=== PATIENT | male | born 1950 | race Caucasian/White ===

== ENCOUNTER → 2018-05-01 07:45 | Outpatient (CLI) | payer OTHER, MEDICARE, SELFPAY ==
--- NOTE | 2018-05-01 07:50 | AAAS_ITS ---
Reason For Study: AAA Aorta Measurements Aorta Doppler Measurements Proximal aorta measures2.1 x 2.1cm. in cross- Peak systolic flow velocities within the proximal sectional axis. aorta measure 83.0 cm/sec. Proximal aorta measures2.1cm. in longitudinal Peak systolic flow velocities within the mid axis. aorta measure 70.2 cm/sec. Mid aorta measures2.7 x 2.8cm. in cross-sectionalPeak systolic flow velocities within the distal axis. aorta measure 39.6 cm/sec. Mid aorta measures2.7cm. in longitudinal axis. Distal aorta measures2.0/2.1cm. in cross- sectional axis. Distal aorta measures2.1cm. in longitudinal axis. Procedure Aorta IVC Iliac vasculature or bypass grafts 17958. Technically limited due to bowel gas. Portion of prox/mid aorta and tracy iliacs not visualized. Exam performed in department. Interpretation Summary Limited exam by bowel gas Maximal aortic dimensions mid aorta 2.7 x 2.8cm Normal aortic flow velocity Ordering Physician: Ochoa Hernandez Referring Physician: Ochoa Hernandez Performed By: Jud Rosales RVT
--- NOTE | 2018-05-01 11:05 | LEAS ---
Arterial Study - Arterial Study Arterial Study: Bilateral lower extremity noninvasive arterial exam at rest Right lower extremity The right PT and DP ankle-brachial indices at rest are 1.08 and 1.04 respectively. The Doppler waveforms are triphasic at the right posterior tibial and dorsalis pedis. Volume pulse recordings demonstrate reasonably maintained waveforms at the low thigh and there is nice amplification at the calf. The ankle waveforms are well maintained on the digital waveforms are moderately depressed. Left lower extremity The left high thigh index is 1.05. The left calf index is abnormal at 0.62. The left PT and DP ankle-brachial indices are 0.63 and 0.64 respectively. The left posterior tibial and dorsalis pedis waveforms are biphasic. The volume pulse recordings demonstrate reasonably maintained waveforms at the low thigh. Calf and ankle waveforms are significantly depressed and the digital waveforms essentially flattened. Impression Normal right lower extremity PT and DP ankle-brachial indices and waveforms. Moderate digital depression consistent with distal small vessel disease Left lower extremity demonstrates a normal index and waveform at the thigh but findings are consistent with occlusion or critical stenosis of the left distal superficial femoral artery/popliteal. Findings are within the range of vascular claudication. Digital waveforms are significantly depressed consistent with severe distal small vessel disease. Ochoa Hernandez M.D., F.A.C.S.
== END ==
PROVIDERS: Family Provider Internal Medicine; PCP Internal Medicine; Visit Provider Surgery
DX: I71.4 Abdominal aortic aneurysm, without rupture (principal); I73.9 Peripheral vascular disease, unspecified
CPT/HCPCS: 76706; 93923

== ENCOUNTER → 2019-05-01 | Outpatient (CLI) | payer MEDICARE, SELFPAY ==
[2017-07-04 06:55] VITALS: BMI 21.6
--- NOTE | 2019-05-01 09:40 | ART_ITS ---
Reason For Study: CLAUDICATION Procedure A bilateral lower extremity continuous wave Doppler with analog waveform analysis,segmental pressures,and ankle brachial indexes without exercise. Left Segmental Pressures Left brachial= 153mmHg. Left thigh = 72mmHg. Left calf = 71mmHg. Left posterior tibial artery = 68mmHg. Left dorsalis pedis artery = 61mmHg. The left dorsalis pedis waveforms are monophasic. The left posterior tibial artery waveforms are monophasic. Left digit = 0 mmHg. Right Segmental Pressures Right brachial= 160mmHg. Right thigh = 127mmHg. Right calf = 102mmHg. Right posterior tibial artery = 108mmHg. Right dorsalis pedis artery = 82mmHg. Right digit = 41 mmHg. The right dorsalis pedis waveforms are monophasic. The right posterior tibial artery waveforms are biphasic. Indices The right resting ankle brachial index is 0.68. The right ankle brachial index by the dorsalis pedis is 0.51. The right ankle brachial index by the posterior tibial artery is 0.68. The left resting ankle brachial index is 0.43. The left ankle brachial index by the dorsalis pedis is 0.38. The left ankle brachial index by the posterior tibial artery is 0.43. Interpretation Summary Abnormal right low thigh index suggesting ileofemoral occlusive disease. Right ABIs well within range of vascular claudication Abnormal left low thigh index consistent with severe left ileofemoral occlusive disease--likely occlusion Left BLAIR's within range of rest pain Ordering Physician: Ochoa Hernandez MD Referring Physician: Ochoa Hernandez Performed By: Barbara Rivas RVT, [facility]
== END | disposition home or self-care (01) ==
PROVIDERS: Family Provider Internal Medicine; PCP Internal Medicine; Referring Provider Surgery; Visit Provider Surgery
DX: I73.9 Peripheral vascular disease, unspecified (principal)
CPT/HCPCS: 93923

== ENCOUNTER → 2019-05-10 | Outpatient (CLI) | payer MEDICARE, SELFPAY ==
[2019-05-06 13:11] VITALS: BMI 21.6
--- NOTE | 2019-05-10 08:03 | CT_ITS ---
STUDY: CTA OF THE ABDOMINAL AORTA AND BILATERAL LOWER EXTREMITIES REASON FOR EXAM: Male, 69 years old. Abdominal aortic aneurysm. Peripheral vascular disease. History of colon, bladder and prostate cancer. History of appendectomy and colon resection. History of prostatectomy and bladder resection. RADIATION DOSAGE (If Supplied By Facility): CTDIvol = ( 7.79 ) mGy, DLP = ( 1001.39 ) mGycm TECHNIQUE: Axial CT angiography multi-detector data acquisition was obtained from the diaphragm to the feet following intravenous administration of 100 IV Isovue 370. Axial images and MIP images were reconstructed from the axial data set. Post-processing of the angiographic images was performed, with multiplanar reformation and 3D reconstruction. Individualized dose optimization techniques were used for this CT. TECHNICAL QUALITY: Good COMPARISON: Aortic ultrasound, May 01, 2018. Descriptors of Narrowing: None (0%) Mild (< 50%) Moderate (50-70%) Severe (70-90%) Subtotal/Total Occlusion (90-100%) Non-Evaluable (technically non-diagnostic FINDINGS: Abdominal aorta: There is marked atherosclerotic changes of the abdominal aorta there is mild pleural thickening. Narrowing of the aorta enlarges to 3.1 x 3.2 cm tapering to the bifurcation. Narrowing of the infrarenal aortic lumen by internal noncalcified plaque Celiac and superior mesenteric arteries: There is atherosclerotic plaque at the origin of the celiac artery with mild stenosis. Inferior mesenteric artery: The origin of the inferior mesenteric artery is occluded. Right renal artery(arteries): There is severe narrowing at the origin of the right renal artery. Left renal artery(arteries): There is severe narrowing at the origin of the left renal artery with early bifurcation. Right common iliac artery: There is a patent stent in the proximal right common iliac artery with mild stenosis. Right external iliac artery: No demonstrated narrowing. Right internal iliac artery: There is a 0.7 cm fusiform aneurysm at the origin of the internal iliac artery. There is moderate narrowings secondary to atherosclerotic plaque. Left common iliac artery: Is patent stent in the proximal left common iliac artery with mild noncalcified plaque. Left external iliac artery: There is occlusion of the external iliac artery just beyond its origin. Left internal iliac artery: Atherosclerotic plaque with mild narrowing. RIGHT LOWER EXTREMITY Right common femoral artery: Minimal atherosclerotic plaque without significant stenosis. Right profundus femoris: No demonstrated narrowing. Right superficial femoral: Occlusion at its origin. Right popliteal artery: There is reconstitution of the popliteal artery below Kamaljit's canal via collaterals from the profunda. Right tibioperoneal trunk: No demonstrated narrowing. Right anterior tibial artery: No demonstrated narrowing. Artery is poorly visualized beyond the ankle. Right posterior tibial artery: No demonstrated narrowing. Right peroneal artery: No demonstrated narrowing. LEFT LOWER EXTREMITY Left common femoral artery: The femoral artery is opacified with minimal atherosclerotic plaque. Left profundus femoris: No demonstrated narrowing. Left superficial femoral: There is minimal hemodynamically narrowing of the lumen proximally. The remainder of the artery appears normal to the lower thigh were there is moderate narrowing due to atherosclerotic plaque. Left popliteal artery: There is mild fusiform dilatation of the proximal popliteal artery just before it occludes posterior to the distal femoral diametaphysis. This reconstitutes via collateral posterior to the femoral condyles normal diameter into the calf. Left tibioperoneal trunk: No demonstrated narrowing. Left anterior tibial artery: No demonstrated narrowing. Left posterior tibial artery: No demonstrated narrowing. Left peroneal artery: No demonstrated narrowing. The lung bases bases are clear. The heart is normal in size. Normal liver. Normal gallbladder and biliary ductal system. Normal spleen. Normal pancreas. Normal adrenal glands. The right kidney is small in size with decreased cortical enhancement. There is mild dilatation of the right renal collecting system and ureter to the ileal conduit seen in the mid abdomen. kidney is of normal size and enhancement. There are multiple small cortical cysts without enhancing mass or renal calculi. Normal left ureter. Normal IVC and retroperitoneum. Normal stomach. Normal small bowel. There are scattered diverticuli throughout the colon is evidence of an anastomosis in the rectosigmoid region. There is evidence of prior appendectomy. The urinary bladder is absent. As stated above there is an ileal conduit in the right mid abdomen. Nonvisualization of the prostate. There is no pelvic lymphadenopathy or mass. No free air or free fluid is seen within the peritoneal cavity. There is an umbilical hernia of omental fat. The ostomy for the ileal conduit placed just to the right of the umbilicus. The abdominal wall appears otherwise unremarkable. There are degenerative changes of the lumbar spine without lytic or blastic lesions. No other osseous abnormality is noted. CT/CTA Abd w/Runoff W/WO Contrast IMPRESSION: 1. Atherosclerotic aorta with mild infrarenal abdominal aortic aneurysm with maximum diameter 3.2 cm. 2. Bilateral common iliac stents. 3. Occlusion of the left external iliac artery. 4. Occlusion of the right superficial femoral artery. 5. Moderate atherosclerotic changes of the distal left SFA. 6. Marked narrowing of the origin of the right renal artery with small kidney. 7. Evidence of bladder resection and prostatectomy. 8. Right mid abdominal ileal conduit. There is mild dilatation of right renal collecting system. 9. Status post left partial colectomy and appendectomy. Electronically Signed: Hang Hernandez DO at 17:19 EDT Tel [phone], Service support ,
[2019-05-10 08:25] LABS: CREATININE FINGERSTICK 1.1 mg/dL (0.70-1.30); EGFR FINGERSTICK > 60.0000 mL/min (>60)
== END | disposition home or self-care (01) ==
LOC: CT 08:03
PROVIDERS: Family Provider Internal Medicine; PCP Internal Medicine; Referring Provider Surgery; Visit Provider Surgery
DX: I71.4 Abdominal aortic aneurysm, without rupture (principal); I77.9 Disorder of arteries and arterioles, unspecified; M79.604 Pain in right leg; M79.605 Pain in left leg
CPT/HCPCS: 75635; Q9967

== ENCOUNTER 2019-07-03 09:53 | Day surgery (SDC) | payer MEDICARE, SELFPAY ==
[2019-05-16 06:32] VITALS: BMI 21.6
--- NOTE | 2019-06-04 05:47 | HP_ITS ---
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 Is patient in pain?: No Allergies sulfamethoxazole [From Bactrim] Adverse Reaction (Verified 05/06/19 13:10) Other trimethoprim [From Bactrim] Adverse Reaction (Verified 05/06/19 13:10) Other Medications Acetaminophen with Codeine [Tylenol with Codeine #4 Tablet] 1 ea PO Q4H PRN PRN 07/22/13 [History Confirmed 05/06/19] Amlodipine [Norvasc] 10 mg PO QHS 07/22/13 [History Confirmed 05/06/19] Folic Acid 1 mg PO DAILY PRN PRN 07/22/13 [History Confirmed 05/06/19] Ibuprofen [Motrin] 800 mg PO TID PRN PRN 07/22/13 [History Confirmed 05/06/19] Ranitidine [Zantac] 150 mg PO BID PRN PRN 07/22/13 [History Confirmed 05/06/19] Omeprazole [Prilosec] 20 mg PO BID PRN PRN 04/11/14 [History Confirmed 05/06/19] Gabapentin [Neurontin] 300 mg PO 5X/DAY 03/07/16 [History Confirmed 05/06/19] Tamsulosin HCl [Flomax] 0.4 mg PO DAILY 03/07/16 [History Confirmed 05/06/19] PFS Medical History (Updated 05/06/19 @ 17:44 by Ochoa Hernandez MD) Carotid artery disease (Acute) PAD (peripheral artery disease) (Acute) BPH (benign prostatic hyperplasia) (Acute) HTN (hypertension) (Chronic) Personal history of colon cancer (Acute) GERD (gastroesophageal reflux disease) (Acute) AAA (abdominal aortic aneurysm) (Acute) PAD (peripheral artery disease) (Acute) Surgical History (Updated 05/06/19 @ 13:10 by Saba Dumont) S/P peripheral artery angioplasty (Acute) S/P colonoscopy (Acute) S/P colectomy (Acute) Social History (Updated 05/06/19 @ 17:47 by Ochoa Hernandez MD) Smoking Status: Current every day smoker HPI HPI HPI: LELA PHAM, is a 69 M who presents to the office today for HPI HPI Surgical H&P: Yes HPI: LELA PHAM, is a 69 M who presents to the office today for surgical consultation regarding progressive bilateral lower extremity calf claudication worse on the left than the right. Patient's previously had colon cancer. Previously had bladder cancer. Also prostate cancer. He has undergone a sigmoid colectomy. He is undergone a radical cystectomy with prostatectomy and ureteral urostomy. Most recently April 08 his PSA level was less than 0.03. CEA level was 2.3. Albumin was 3.8. BUN 14 and creatinine 1.1 with a potassium of 4.5. Hemoglobin 15.2 with hematocrit of 46.2. Cholesterol 137 with triglycerides 120. He has been a lifelong cigarette smoker. He does continue to smoke cigarettes. He has trouble with bilateral calf claudication particular with any type of uphill grade. He can walk half a block. At the [facility] on May 01, 2019 he had bilateral lower extremity PVRs. The right low thigh index was 0.79 with the right PT and DP ankle-brachial index 0.680.51. The left low thigh index was 0.45 with a left PT and DP index of 0.43 and 0.38. Monophasic waveforms were noted bilaterally. These findings were felt to have significantly deteriorated from previous examinations. It is also of note that he has a previous history of a small infrarenal abdominal aortic aneurysm. He had bilateral common iliac stents placed in 2004. 8 mm on the right and 7 mm on the left. He is required several interventions in the interim with repeat angioplasty of repeat in-stent stenosis. My most recent intervention was April 14, 2014. Retrograde bilateral common femoral artery access was obtained. 8 x 40 mm [employer] balloons were inserted bilaterally and a kissing balloon technique performed. The small infrarenal abdominal aortic aneurysm noted. My previous notes reflect the following HPI: LELA PHAM, is a 68 M who presents to the office today for surgical follow-up regarding PAD. He also has extracranial carotid artery occlusive disease. He also has a history of perforated sigmoid colon cancer in the year 2012. His most recent colonoscopy was 2017 was not remarkable. He is also had a history of urinary bladder cancer and underwent a radical cystectomy. He has a asymptomatic abdominal aortic aneurysm. August 24, 2016 the aneurysm measured 3.1 x 3.1 cm. He also has a history of bilateral iliac stents. Those were placed approximately 2004. He is required 100 intervention since that time for repeat angioplasty of the stent. He has no current complaints regarding that finding. 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 [id number]. On November 27, 2016 right BLAIR was 1.06 with a digital BLAIR of 0.7. The left resting BLAIR was 1.05 with a TBI of 0.71. Most recently on May 01, 2018 at the [facility] the right PT and DP ABIs were 1.081.04 respectively with triphasic waveforms. The left PT and DP ABIs were 0.63 and 0.64. On May 01, 2018 a abdominal aortic ultrasound was performed at the [facility]. Maximum dimension of the mid aorta was 2.7 x 2.8 cm. No actual findings of aortic aneurysm at that setting. The patient is able to walk. He does not purposely exercise. If he has limitation it is secondary to his neuropathy. He is continuing to smoke cigarettes ROS General General: Yes weight change, fatigue and colon cancer; no appetite, breast cancer or weakness HEENT HEENT: Yes hoarseness; no difficulty swallowing, eye injury, eye surgery or swollen glands Endo Endocrine: No thyroid disease, diabetes mellitus, thyroid cancer, Hair loss, heat intolerance or cold intolerance Cardio Cardiovascular: Yes heart disease and high blood pressure; no murmur, pacemaker, atrial fibrillation, heart attack, heart stent, palpitations, shortness of breat with exertion or chest pain Gastro Gastrointestinal: No abdominal pain, No nausea or vomiting, No diarrhea, No constipation, No blood in stool, Yes acid reflux, No hemorrhoids, No ulcers, No gallbladder problem, No black,tarry stools Panchito Hematologic: No blood thinners, No blood disorders, No bleeding, No anemia, No blood clots Neuro Neurologic: No weakness Exam Const General: cooperative, ill appearing Nutritional Appearance: underweight Orientation: alert, awake, oriented x3 Other: Heavy odor of tobacco HENMT Head: normal to inspection Chest Other: Increased anterior posterior diameter Resp Other: Slight scattered rhonchi and rale and wheeze, decreased respiratory excursion Cardio Rate: regular rate Heart Sounds: no murmurs Other: Right femoral 2+. Left femoral not palpable. Bilateral popliteal and DP and PT pulses not palpable Bilateral radials 2+. Bilateral brachials 2+. Bilateral carotids 2+. No gross carotid bruit GI Palpation: soft, no hepatosplenomegaly Auscultation: normal bowel sounds Musc Cervical Spine: normal cervical lordosis Neuro Cognition: normal cognition Extrem General: no calf tenderness bilaterally Psych Affect: normal affect Assessment & Plan Problems 1. Bilateral carotid artery stenosis I65.23 2. PAD (peripheral artery disease) I73.9 3. Abdominal aortic aneurysm (AAA) without rupture I71.4 Plan Small infrarenal abdominal aortic aneurysm History of bilateral common iliac stents with findings very much consistent with recurrent in-stent stenosis and unfortunately suspected occlusion on the left Abnormal bilateral lower extremity ankle-brachial indices quite severe on the left. Findings are highly suspicious for multi segmental bilateral lower extremity peripheral arterial occlusive disease with likely areas of high-grade stenosis or occlusion History of colon cancer and bladder cancer. Again I recommend tobacco cessation. I have offered him a abdominal pelvic bilateral lower extremity arteriogram. I will initially gain access retrograde via the right groin. Patient is aware that stent graft placement may be required in bilateral common iliacs. Great care will need to be pursued so as to not inhibit potential future infrarenal abdominal aortic aneurysm repair. The patient is very much aware that he may have a complete occlusion of the left common iliac and it may not be able to be reestablished. He is additionally aware that he likely has significant bilateral lower extremity multisegmental disease. He is aware that complete resolution may not be possible. He has had an opportunity to ask and have questions answered. We will schedule and proceed at his discretion. I appreciate the ongoing opportunity of assisting with his surgical care. He is due for a carotid duplex exam follow-up at 1 year CC: Dr. Arnie Hernandez M.D., F.A.C.S. Orders Orders: CTA Abd w/Runoff W/WO Contrast Today I71.4, I77.9, M79.604, M79.605 Coding Level of Care Code Off vis,est,level 4 Diagnoses Bilateral carotid artery stenosis I65.23 ??Carotid artery disease type: stenosis ??Laterality: bilateral PAD (peripheral artery disease) I73.9 Abdominal aortic aneurysm (AAA) without rupture I71.4 ??Presence of rupture: without rupture I have re-examined the patient. There are no clinical changes since date of exam.
[2019-06-26 08:05] VITALS: BMI 21.6
[2019-06-26 09:32] LABS: Hematocrit 45.9 % (40-54); Hemoglobin 14.1 g/dL (13.0-16.5); Mean Corp Hgb Conc 30.7 g/dL (32-36); Mean Corpuscular Hgb 28.3 pg (27.0-32.0); Mean Corpuscular Volume 92.2 fL (80-94); Mean Platelet Vol. 9.5 fl (6.2-12.0); Platelet Count 320 K/mm3 (150-450); RBC Distribution Width CV 14.6 % (11.6-14.6); RBC Distribution Width SD 49.6 fl (35.1-43.9); Red Blood Count 4.98 M/mm3 (4.6-6.2); White Blood Count 9.6 K/mm3 (4.4-11.0)
[2019-06-26 10:00] LABS: Anion Gap 5 (5-15); BUN 16 mg/dL (7-18); BUN/Creat Ratio 11.9 RATIO (10-20); Calcium,Total 8.4 mg/dL (8.5-10.1); Chloride 105 mmol/L (98-107); Creatinine, Serum 1.35 mg/dL (0.70-1.30); EST Glomerular Filtration Rate 56 mL/min (>60); Est Glom Filt Rate - Afr Amer 67 mL/min (>60); Glucose 109 mg/dL (74-106); Potassium 4.4 mmol/L (3.5-5.1); Sodium Level 139 mmol/L (136-145)
[2019-07-03] VITALS (10 sets, daily range): BP systolic 134–153; BP diastolic 64–84; PULSE 76–92; RESP 18; TEMP 36.7–36.8; O2SAT 93–97; BMI 21.7
[2019-07-03 16:06] LABS: ACT Activated Clotting Time 257 sec (74-137)
[2019-07-03 16:06] LABS: ACT Activated Clotting Time 263 sec (74-137)
[2019-07-03 16:06] LABS: ACT Activated Clotting Time 131 sec (74-137)
[2019-07-03 16:06] LABS: ACT Activated Clotting Time 241 sec (74-137)
[2019-07-03 16:06] LABS: ACT Activated Clotting Time 219 sec (74-137)
[2019-07-03] MEDS: Clopidogrel Bisulfate 75 MG Tablet PO (16:41)
--- NOTE | 2019-07-03 18:44 | PCM.PN.SRG ---
Subjective: Postoperative day 0 Patient is comfortable has no complaints, states that he does feel like he needs to move his bowels, he notes minimal discomfort in the left groin. - Physical Exam Abdomen: - - Bilateral groins of dressings intact, supple, pulses are palpable, no bleeding noted, Extremities: - - Warm with adequate capillary refill, nontender feet. Vital Signs Temp Pulse Resp BP Pulse Ox 98.0 F 86 18 143/84 H 97 07/03/19 17:55 07/03/19 17:55 07/03/19 17:55 07/03/19 17:55 07/03/19 17:55 Oxygen Delivery Method Room Air Weight: 143 lb Body Mass Index (BMI) 21.7 Laboratory Tests Past 24 Hrs 07/03/19 07/03/19 07/03/19 12:07 12:32 12:59 Activated Clotting Time 131 263 H 257 H 07/03/19 07/03/19 13:53 14:17 Activated Clotting Time 241 H 219 H Medical Necessity - Tobacco Use Smoking Status: Current every day smoker Assessment/Plan All Active Problems (Last Reviewed 06/26/19 @ 08:03 by Barbara Rogel) Carotid artery disease (Acute) PAD (peripheral artery disease) (Acute) S/P peripheral artery angioplasty (Acute) S/P colonoscopy (Acute) S/P colectomy (Acute) BPH (benign prostatic hyperplasia) (Acute) Personal history of colon cancer (Acute) GERD (gastroesophageal reflux disease) (Acute) AAA (abdominal aortic aneurysm) (Acute) PAD (peripheral artery disease) (Acute) 69-year-old gentleman status post a reasonably complex endovascular procedure appears to be extraordinarily stable. We will continue to progress via normal postoperative protocol and will discharge if appropriate. Ochoa Hernandez M.D., F.A.C.S.
--- NOTE | 2019-07-03 18:45 | OP.PCM_ITS ---
Problem List (1) PAD (peripheral artery disease) Status: Acute Report of Operation Date of Procedure: 07/03/19 Pre-Operative Diagnosis: Symptomatic bilateral lower extremity peripheral vascular occlusive disease with suspected bilateral common iliac in-stent stenosis and occlusion of the left iliac system Post-Operative Diagnosis: Bilateral common iliac in-stent stenosis, total occlusion of the left external iliac, thrombus within the left common femoral artery, distal left superficial femoral artery occlusion Surgery/Procedure Performed:: Bilateral retrograde common femoral artery endovascular access under ultrasound guidance. Left common iliac artery and external iliac artery and common femoral artery 6 x 80 mm ever cross angioplasty. Left common femoral artery spider device thrombus removal. Right common iliac 8 x 37 mm Bard Lifestream covered stent placement. Left common iliac 7 x 26 mm Bard Lifestream covered stent placement. Left external iliac 7 x 100 mm protege everflex stent placement. Bridging left common iliac to left external iliac 7 x 29 mm Elmira stenting Description of Surgical Findings:: Timeout and informed consent was obtained. 69-year-old gentleman was taken to the special procedures lab and placed supine on the table. Throughout the procedure and aliquots she received a total of 50 mcg of fentanyl and 2 mg of Versed is intravenous sedation. Bilateral groins were sterilely prepped and draped. Ultrasound was used to identify the right common femoral artery. Image capture performed. Under ultrasound guidance 2% lidocaine was instilled as a local anesthetic. Throughout the entire procedure a total of 20 cc of local was utilized. Under ultrasound guidance a micropuncture needle was inserted into the right common femoral artery retrograde with flow. Micropuncture wire inserted. Micropuncture sheath inserted. An 035 J-wire was inserted. A [place] sheath was inserted. Then using a 035 angled Glidewire and a 5 [place] universal flush catheter access was gained to the infrarenal abdominal aorta. Utilizing Visipaque contrast at 15 cc/s for 10 cc a AP aortogram was obtained. This demonstrated bilateral common iliac Elmira stent in-stent stenosis and complete occlusion of the left external iliac. There appeared to be refill of the left common femoral artery with filling of the proximal left profundofemoral artery and superficial femoral artery. The right external iliac appeared to be patent throughout as did the right common femoral artery and proximal superficial femoral artery in the right and profundofemoral artery on the right I utilized the universal flush catheter and 035 stiff Glidewire gain access to the in-stent stenosis of the left common iliac and was able to advance the Glidewire through the area of complete occlusion of the left external iliac. I then exchanged out for an 035 quick cross catheter into the left superficial femoral artery and using hand-injection demonstrated good intraluminal placement. I then exchanged out for an 035 Magic wire. It is of note that the patient then received 8000 units of heparin intravenously. Based upon ACT measurements the patient received additional heparin dosing in 3 separate allotments of 1000 units each with a total heparin administration of 11,000 units. Over the Magic wire I placed a 6 x 80 mm ever cross balloon and performed balloon angioplasty of the left external iliac and in-stent stenosis within the left common iliac. I then was able to place a 7 [place] destination sheath from the right. Through that destination sheath placed within the left common iliac I obtained static views of the left pelvis demonstrating improvement in recanalization of the degree of flow within the left external iliac there with areas of dissection. There appeared to be an area of thrombus within the left common femoral artery. So then I placed a 5 mm spider device into the left superficial femoral artery. I tried to re-balloon the left common femoral artery area of defect however that did not resolve however upon withdrawing the spiral device I was able to capture that thrombus and was able to remove it. The patient continued to have a CT measurements obtained. I then placed a 7 x 100 mm protege everflex into the left external iliac with the distal and right at the inguinal ligament.. Having achieved that I then used ultrasound to i nspect the left common femoral artery. The thrombus in that area had been successfully removed. I instilled 2% lidocaine and again under ultrasound guidance Retrograde access to the left common femoral artery with a micropuncture needle micropuncture wire micropuncture sheath. I was then able to advance a 035 Magic wire into the abdominal aorta. I could then advance a 7 x 23 7 cm sheath. That was placed into the distal abdominal aorta. I withdrew the destination sheath on the right into the proximal right common iliac and advanced the wire also up into the aorta. I was then able to place a 8 x 37 mm Bard Lifestream covered stent on the right and a 7 x 26 mm on the left. A kissing balloon technique was performed to realign the previous areas of in-stent stenosis within the previous Elmira stents. Hand-injection view demonstrated that the in-stent stenosis was resolved bilaterally. There was excellent flow within the left external iliac however at the very proximal portion of the left external iliac stent there appeared to be either a dissection thrombus or flap. I did briefly attempt to aspirate this area with a 6 [place] JR4 catheter. However no thrombus could be obtained. This appeared to be a flow-limiting lesion. I was left with no other option other than to place a OpenSail stent across the origin of the left internal iliac. I placed a 7 x 29 mm Elmira stent which bridged into the previous Bard life stream covered stent and additionally into the external iliac prot?g? stent. I replaced a universal flush catheter to the abdominal aorta from the right com mon femoral and obtained a flush aortogram nail demonstrating wide open in-line patency bilaterally. The bilateral proximal common iliac in-stent stenosis was resolved there was flush approximation of not only the previous Elmira stents but the newly placed Bard Lifestream stents. This did not propagate proximally into the aorta. There was resolution of the complete occlusion of the left external iliac and resolution of the area of flow-limiting dissection or thrombus at the very origin of the left external iliac. There was nice flow within the left common femoral artery and proximal profundofemoral and superficial femoral artery without evidence of any residual thrombus. Where appropriate balloons and catheters were removed. I utilized the Magic wire and stiff Glidewire to insert Perclose devices bilaterally. These were deployed and secured with immediate hemostasis. Additional gentle pressure was held. There were no apparent complications. Blood loss was minimal. The jessica ent tolerated procedure well. Extremities were viable at the completion. The patient was subsequently taken to recovery area in satisfactory condition. Images demonstrate a patent infrarenal abdominal aorta with in-stent stenosis of bilateral proximal common iliac Elmira stents and complete occlusion of the left external iliac. 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 There was a focal area of thrombus within the left common femoral artery subsequent to the ever flex angioplasty of the external iliac. This was successfully removed with the spider device. At the completion of angioplasty and stenting bilaterally there is now direct in-line flow bilaterally. 1 of the more distal views on the left suggested occlusion of the left superficial femoral artery at Kamaljit's canal. Because of the amount of effort and time required with radiation dosing and contrast material to 100 cc I elected to not perform additional runoff views bilaterally. Successful completion and treatment of bilateral in-stent stenosis and left, external iliac occlusion. Ochoa Hernandez M.D., F.A.C.S. Type of Anesthesia:: IV Sedation, Local
--- NOTE | 2019-07-03 20:11 | NURSING ---
Nursing gave patient D/C instructions/ teachings post procedure. Patient walked in hallway, tolerated well. Post walk sites remained C/D/I and soft to touch. No tenderness. Patient and denied further needs/concerns. IV out. Patient ready for D/C at this time.
== END 2019-07-03 20:15 | disposition home or self-care (01) ==
LOC: CLSP 09:55 → PCU 14:56
PROVIDERS: Family Provider Internal Medicine; PCP Internal Medicine; Referring Provider Surgery; Visit Provider Surgery
DX: I73.9 Peripheral vascular disease, unspecified (principal); I71.4 Abdominal aortic aneurysm, without rupture; I65.23 Occlusion and stenosis of bilateral carotid arteries; N40.0 Benign prostatic hyperplasia without lower urinary tract symptoms; K21.9 Gastro-esophageal reflux disease without esophagitis; F17.210 Nicotine dependence, cigarettes, uncomplicated; Z85.038 Personal history of other malignant neoplasm of large intestine; Z85.51 Personal history of malignant neoplasm of bladder; Z85.46 Personal history of malignant neoplasm of prostate; Z79.899 Other long term (current) drug therapy
CPT/HCPCS: 36200; 36245; 36246; 36415; 37221; 37226; 75625; 75716; 76937; 80048; 85027; 85347; 99152; 99153; J7030; J7040; C1725; C1760; C1769; C1874; C1876; C1884; C1887; C1894

== ENCOUNTER → 2019-07-22 | Outpatient (CLI) | payer MEDICARE, SELFPAY ==
[2019-07-15 11:37] VITALS: BMI 21.7
--- NOTE | 2019-07-22 12:55 | ART_ITS ---
Reason For Study: PVD Procedure A bilateral lower extremity continuous wave Doppler with analog waveform analysis,segmental pressures,and ankle brachial indexes with exercise. Left Segmental Pressures Left brachial= 166mmHg. Left thigh = 142mmHg. Left calf = 76mmHg. Left posterior tibial artery = 82mmHg. Left dorsalis pedis artery = 71mmHg. Right Segmental Pressures Right brachial= 161mmHg. Right thigh = 146mmHg. Right calf = 108mmHg. Right posterior tibial artery = 108mmHg. Right dorsalis pedis artery = 92mmHg. The right dorsalis pedis waveforms are biphasic. The right posterior tibial artery waveforms are biphasic. Indices The right ankle brachial index by the dorsalis pedis is 0.55. The right ankle brachial index by the posterior tibial artery is 0.65. The right post exercise ankle brachial index is 0.38. The left ankle brachial index by the dorsalis pedis is 0.43. The left ankle brachial index by the posterior tibial artery is 0.49. The left post exercise ankle brachial index is 0.24. Interpretation Summary Moderately severe arterial occlusive disease right lower extremity. Severe or multisegmental arterial occlusive disease left lower extremity. Findings suggest occlusion of the left superficial femoral artery. Exercise indices are abnormal bilateral consistent with clinically significant disease more notable on the left. Ordering Physician: Ochoa Hernandez Referring Physician: Arnie Chiang M.D. Performed By: Darline Valadez RVT
== END | disposition home or self-care (01) ==
LOC: CVS 12:54
PROVIDERS: Family Provider Internal Medicine; PCP Internal Medicine; Referring Provider Surgery; Visit Provider Surgery
DX: I73.9 Peripheral vascular disease, unspecified (principal)
CPT/HCPCS: 93924

== ENCOUNTER → 2019-09-02 | Outpatient (CLI) | payer MEDICARE, SELFPAY ==
[2019-07-15 11:37] VITALS: BMI 21.7
--- NOTE | 2019-09-02 09:33 | CDU_ITS ---
Reason For Study: Carotid Stenosis Rt. Velocities/BP Lt. Velocities/BP Prox CCA 66/9 cm/sec. Prox CCA 90/16 cm/sec. Mid CCA 77/14 cm/sec. Mid CCA 72/16 cm/sec. Dist CCA 53/13 cm/sec. Dist CCA 61/17 cm/sec. Prox ICA 89/15 cm/sec. Prox ICA 116/18 cm/sec. Mid ICA 95/20 cm/sec. Mid ICA 104/18 cm/sec. Dist ICA 69/23 cm/sec. Dist ICA 78/25 cm/sec. Rt. ICA/CCA = 1.2. Lt. ICA/CCA = 1.6. Prox ECA 211/20 cm/sec. Prox ECA 199/23 cm/sec. Rt. Vert. 37/8 cm/sec. Lt. Vert. 56/16 cm/sec. Right Extracranial There is heterogeneous, irregular atherosclerotic plaque noted in the right common carotid artery. There is heterogeneous, irregular atherosclerotic plaque noted in the right internal carotid artery. There is homogeneous, irregular atherosclerotic plaque noted in the right external carotid artery. Antegrade flow is noted in the right vertebral artery. Left Extracranial There is heterogeneous, irregular atherosclerotic plaque noted in the left common carotid artery. There is homogeneous, irregular atherosclerotic plaque noted in the left internal carotid artery. There is intimal thickening but no significant atherosclerotic plaque noted in the left external carotid artery. Antegrade flow is noted in the left vertebral artery. Procedure Carotid Duplex [id number]. Exam performed in department. Interpretation Summary Irregular calcific plaque at the distal right common carotid and proximal right internal and external carotid arteries <50% stenosis right internal carotid >50% stenosis right external carotid Irregular calcific plaque left distal common carotid and proximal left internal and external carotid arteries <50% stenosis left internal carotid >50% stenosis left external carotid Patent and antegrade vertebrals bilaterally Ordering Physician: Ochoa Hernandez Referring Physician: Arnie Chiang Performed By: Dania Oconnor RDCS, RVT
== END | disposition home or self-care (01) ==
LOC: CVS 09:33
PROVIDERS: Family Provider Internal Medicine; PCP Internal Medicine; Referring Provider Surgery; Visit Provider Surgery
DX: I65.23 Occlusion and stenosis of bilateral carotid arteries (principal)
CPT/HCPCS: 93880

== ENCOUNTER → 2020-07-13 | Outpatient (CLI) | payer MEDICARE, SELFPAY ==
[2019-07-15 11:37] VITALS: BMI 21.7
--- NOTE | 2020-07-13 09:14 | ART_ITS ---
Reason For Study: PAD Procedure A bilateral lower extremity continuous wave Doppler with analog waveform analysis,segmental pressures,and ankle brachial indexes without exercise. Left Segmental Pressures Left brachial= 146mmHg. Left thigh = 129mmHg. Left calf = 78mmHg. Left posterior tibial artery = 63mmHg. Left dorsalis pedis artery = 75mmHg. Left digit = 54 mmHg. The left dorsalis pedis waveforms are monophasic. The left posterior tibial artery waveforms are monophasic. Right Segmental Pressures Right brachial= 152mmHg. Right thigh = 89mmHg. Right calf = 71mmHg. Right posterior tibial artery = 78mmHg. Right dorsalis pedis artery = 71mmHg. The right dorsalis pedis waveforms are monophasic. The right posterior tibial artery waveforms are monophasic. Indices The right ankle brachial index by the dorsalis pedis is 0.47. The right ankle brachial index by the posterior tibial artery is 0.51. The left ankle brachial index by the dorsalis pedis is 0.49. The left ankle brachial index by the posterior tibial artery is 0.41. The left digital-brachial index is 0.36. Interpretation Summary Severe multisegmental bilateral lower extremity arterial occlusive disease at rest. Monophasic bilateral dorsalis pedis and posterior tibialis waveforms noted. Since 07/22/19 advancement of disease right lower extremity and no change on the left Ordering Physician: Ochoa Hernandez Referring Physician: Arnie Chiang M.D. Performed By: Darline Valadez RVT and Student
== END | disposition home or self-care (01) ==
LOC: CVS 09:14
PROVIDERS: PCP Internal Medicine; Referring Provider Surgery; Visit Provider Surgery
DX: I73.9 Peripheral vascular disease, unspecified (principal)
CPT/HCPCS: 93923

== ENCOUNTER → 2021-04-27 07:51 | Outpatient (CLI) | payer MEDICARE, SELFPAY ==
--- NOTE | 2021-04-27 07:54 | AAVD_ITS ---
Reason For Study: AAA Aorta Measurements Aorta Doppler Measurements Proximal aorta measures2.01 x 2.05cm. in cross- Peak systolic flow velocities within the proximal sectional axis. aorta measure 48.8 cm/sec. Proximal aorta measures2.02cm. in longitudinal Peak systolic flow velocities within the mid aorta axis. measure 62.0 cm/sec. Mid aorta measures3.02 x 3.07cm. in cross- Peak systolic flow velocities within the distal sectional axis. aorta measure 43.1 cm/sec. Mid aorta measures3.0cm. in longitudinal axis. Distal aorta measures2.99 x 3.18cm. in cross- sectional axis. Distal aorta measures3.12cm. in longitudinal axis. Left Iliac Artery Left iliac artery measures 1.55 x 1.59 cm. in the cross-sectional axis. Left iliac artery measures 1.23 cm. in the longitudinal axis. Peak systolic velocity in the left iliac artery measures 33.2 cm/sec. Right Iliac Artery Right iliac artery measures 1.1 x 1.08 cm. in the cross-sectional axis. Right iliac artery measures .87 cm. in the longitudinal axis. Peak systolic velocity in the right iliac artery measures 73.6 cm/sec. Procedure Aorta IVC Iliac vasculature or bypass grafts 60403. The exam was diagnostic. Difficult to image R iliac due to colostomy. VL/Abd Aortic/IVC Duplex scan Interpretation Summary Maximal aortic dimension in the distal abdominal aorta at 2.99 x 3.18 cm. Flow rate throughout the abdominal aorta is normal. Left common iliac measures 1.55 x 1.59 cm in diameter Right common iliac measures 1.1 x 1.08 cm in diameter. The exam was noted to be technically difficult due to a colostomy Comparison is made to a previous aortic duplex exam of May 01, 2018 where the abdominal aorta measured maximally at that time 2.7 x 2.8 cm in diameter The current duplex examination places the current diameter just into the range of a abdominal aortic aneurysm Ordering Physician: Ochoa Hernandez Performed By: Matthew Suh RVT and Student
== END ==
PROVIDERS: PCP Internal Medicine; Referring Provider Surgery; Visit Provider Surgery
DX: I71.4 Abdominal aortic aneurysm, without rupture (principal)
CPT/HCPCS: 93978

== ENCOUNTER → 2021-06-19 14:07 | Outpatient (CLI) | payer MEDICARE, SELFPAY ==
[2021-06-16 09:49] LABS: Hemoglobin 15.6 g/dL (13.0-16.5); Mean Corp Hgb Conc 32.5 g/dL (32-36); Mean Corpuscular Hgb 30.2 pg (27.0-32.0); Mean Platelet Vol. 9.3 fl (6.2-12.0); Platelet Count 300 K/mm3 (150-450); RBC Distribution Width CV 14.5 % (11.6-14.6); RBC Distribution Width SD 49.8 fl (35.1-43.9); Red Blood Count 5.16 M/mm3 (4.6-6.2); White Blood Count 9.4 K/mm3 (4.4-11.0)
[2021-06-16 10:11] LABS: Anion Gap 4 (5-15); BUN 13 mg/dL (7-18); Calcium,Total 8.8 mg/dL (8.5-10.1); Chloride 107 mmol/L (98-107); Creatinine, Serum 1.18 mg/dL (0.70-1.30); EST Glomerular Filtration Rate 65 mL/min (>60); Est Glom Filt Rate - Afr Amer 78 mL/min (>60); Glucose 102 mg/dL (74-106); Potassium 4.5 mmol/L (3.5-5.1); Sodium Level 137 mmol/L (136-145)
== END ==
PROVIDERS: PCP Internal Medicine; Referring Provider Surgery; Visit Provider Surgery
DX: I73.9 Peripheral vascular disease, unspecified (principal)
CPT/HCPCS: 36415; 80048; 85027

== ENCOUNTER 2021-06-21 07:24 | Day surgery (SDC) | payer MEDICARE, SELFPAY ==
--- NOTE | 2021-06-16 10:09 | EKG12_ITS ---
Test Reason : PRE OP Blood Pressure : / mmHG Vent. Rate : 092 BPM Atrial Rate : 092 BPM P-R Int : 146 ms QRS Dur : 070 ms QT Int : 350 ms P-R-T Axes : 085 087 085 degrees QTc Int : 432 ms Normal sinus rhythm Normal ECG Confirmed by RISHABH VELASQUEZ, ANA PAULA ([id number]), material expeditor JANET ONEAL ([id number]) on 06/17/2021 10:59:31 AM Referred By: Ochoa Hernandez Confirmed By:ANA PAULA KEATING MD
[2021-06-21 07:47] VITALS: BMI 20.7
--- NOTE | 2021-06-21 08:45 | PCM.HP.BLA ---
History and Physical Date of Admission: 06/21/21 Intake Visit Reasons: Follow up testing Chief Complaint: yearly PAD/ AAA Allergies sulfamethoxazole [From Bactrim] Adverse Reaction (Verified 05/27/21 09:43) Other trimethoprim [From Bactrim] Adverse Reaction (Verified 05/27/21 09:43) Other Medications acetaminophen-codeine 1 ea PO Q4H PRN PRN 07/22/13 [History Confirmed 05/27/21] amlodipine 10 mg PO QHS 07/22/13 [History Confirmed 05/27/21] ibuprofen 800 mg PO TID PRN PRN 07/22/13 [History Confirmed 05/27/21] gabapentin 300 mg PO 5X/DAY 03/07/16 [History Confirmed 05/27/21] tamsulosin 0.4 mg PO DAILY 03/07/16 [History Confirmed 05/27/21] clopidogrel 75 mg tablet 75 mg PO DAILY 90 Days #90 tab 08/06/20 [Rx Confirmed 05/27/21] atorvastatin 20 mg tablet mg PO 05/27/21 [History Confirmed 05/27/21] ibuprofen 800 mg tablet mg PO 05/27/21 [History Confirmed 05/27/21] lisinopril 10 mg tablet mg PO 05/27/21 [History Confirmed 05/27/21] prednisone 10 mg tablet mg PO 05/27/21 [History Confirmed 05/27/21] PFSH Medical History AAA (abdominal aortic aneurysm) BPH (benign prostatic hyperplasia) Carotid artery disease GERD (gastroesophageal reflux disease) HTN (hypertension) PAD (peripheral artery disease) PAD (peripheral artery disease) Personal history of bladder cancer Personal history of colon cancer Personal history of prostate cancer Surgical History History of bladder surgery History of radical prostatectomy History of total cystectomy S/P arteriogram of extremity S/P colectomy S/P colonoscopy S/P peripheral artery angioplasty Social History Smoking Status: Current every day smoker HPI HPI HPI: LELA PHAM, is a 71 M who presents to the office today for follow-up of distal sigmoid colon cancer for which I assisted him with a low anterior resection in 2012. He had a follow-up colonoscopy in 2013 and in 2016. When I saw him a year ago he elected to defer for 1 year because of the COVID-19 crisis. His most recent carotid duplex exam was August 2019. He had less than 50% stenosis of bilateral internal carotid arteries. As noted below he has a small abdominal aortic aneurysm measuring 3 x 3 cm His most recent lower extremity arterial procedure is as noted below June 2019. He had 3 different types of stents placed into the left iliac system and one covered stent in the right common iliac. He now is complaining of significant progression of bilateral extremity claudication for worse on the right than on the left. At the time of his most recent intervention there was thrombus within the left common femoral artery that fortunately was evacuated with a spider device. Clearly this patient is at higher risk for multi segmental recurrent disease. April 27, 2021 Reason For Study: AAA Aorta Measurements Aorta Doppler Measurements Proximal aorta measures2.01 x 2.05cm. in cross- Peak systolic flow velocities within the proximal sectional axis. aorta measure 48.8 cm/sec. Proximal aorta measures2.02cm. in longitudinal Peak systolic flow velocities within the mid aorta axis. measure 62.0 cm/sec. Mid aorta measures3.02 x 3.07cm. in cross- Peak systolic flow velocities within the distal sectional axis. aorta measure 43.1 cm/sec. Mid aorta measures3.0cm. in longitudinal axis. Distal aorta measures2.99 x 3.18cm. in cross- sectional axis. Distal aorta measures3.12cm. in longitudinal axis. Left Iliac Artery Left iliac artery measures 1.55 x 1.59 cm. in the cross-sectional axis. Left iliac artery measures 1.23 cm. in the longitudinal axis. Peak systolic velocity in the left iliac artery measures 33.2 cm/sec. Right Iliac Artery Right iliac artery measures 1.1 x 1.08 cm. in the cross-sectional axis. Right iliac artery measures .87 cm. in the longitudinal axis. Peak systolic velocity in the right iliac artery measures 73.6 cm/sec. Procedure Aorta IVC Iliac vasculature or bypass grafts 62517. The exam was diagnostic. Difficult to image R iliac due to colostomy. VL/Abd Aortic/IVC Duplex scan Interpretation Summary Maximal aortic dimension in the distal abdominal aorta at 2.99 x 3.18 cm. Flow rate throughout the abdominal aorta is normal. Left common iliac measures 1.55 x 1.59 cm in diameter Right common iliac measures 1.1 x 1.08 cm in diameter. The exam was noted to be technically difficult due to a colostomy Comparison is made to a previous aortic duplex exam of May 01, 2018 where the abdominal aorta measured maximally at that time 2.7 x 2.8 cm in diameter The current duplex examination places the current diameter just into the range of a abdominal aortic aneurysm Ordering Physician: Ochoa Hernandez Performed By: Matthew Suh RVT and Student Report of Operation Date of Procedure: 07/03/19 Pre-Operative Diagnosis: Symptomatic bilateral lower extremity peripheral vascular occlusive disease with suspected bilateral common iliac in-stent stenosis and occlusion of the left iliac system Post-Operative Diagnosis: Bilateral common iliac in-stent stenosis, total occlusion of the left external iliac, thrombus within the left common femoral artery, distal left superficial femoral artery occlusion Surgery/Procedure Performed:: Bilateral retrograde common femoral artery endovascular access under ultrasound guidance. Left common iliac artery and external iliac artery and common femoral artery 6 x 80 mm ever cross angioplasty. Left common femoral artery spider device thrombus removal. Right common iliac 8 x 37 mm Bard Lifestream covered stent placement. Left common iliac 7 x 26 mm Bard Lifestream covered stent placement. Left external iliac 7 x 100 mm protege everflex stent placement. Bridging left common iliac to left external iliac 7 x 29 mm Elmira stenting ROS General General: No weight change, appetite, fatigue, colon cancer, breast cancer or weakness HEENT HEENT: No difficulty swallowing, eye injury, eye surgery, swollen glands or hoarseness Endo Endocrine: No thyroid disease, diabetes mellitus, thyroid cancer, Hair loss, heat intolerance or cold intolerance Skin Skin: No rash or changing moles Musc Musculoskeletal: Yes arthritis and rheumatoid arthritis; No back problems, gout or joint pain Cardio Cardiovascular: Yes high blood pressure; No murmur, pacemaker, heart disease, atrial fibrillation, heart attack, heart stent, palpitations, shortness of breat with exertion or chest pain Psych Psychiatric: No depression, anxiety or hearing voices Resp Respiratory: Yes shortness of breath, No sleep apnea, No cough, Yes COPD, No asthma, No emphysema and No wheezing Gastro Gastrointestinal: No abdominal pain, No nausea or vomiting, No diarrhea, No constipation, No blood in stool, No acid reflux, No hemorrhoids, No ulcers, No gallbladder problem and No black,tarry stools Panchito Hematologic: Yes blood thinners, No blood disorders, No bleeding, No anemia and No blood clots Neuro Neurologic: Yes numbness, Yes tingling and No weakness Exam Const General: cooperative, comfortable and no acute distress Nutritional Appearance: underweight Orientation: alert and awake [facility] Head: normal to inspection Eyes General: appearance normal, both eyes and all related structures Chest Other: Increased anterior posterior diameter Resp Other: Slight bilateral inspiratory wheeze Cardio Rate: regular rate Rhythm: regular rhythm Other: Bilateral radials 3+. Bilateral brachials 3+. Bilateral carotids 3+. Right femoral 0. Left femoral 2+. Bilateral popliteals and DPs and PTs 0 GI Other: Soft, nontender, loop ileostomy right lower quadrant status post radical cystectomy Musc Cervical Spine: normal cervical lordosis Skin Other: Multiple areas of self excoriation bilateral lower extremities Extrem Other: Elevation pallor and dependent rubor bilateral feet. Hypertrophic nails. Hair loss. Diminished capillary refill Psych Appearance: grossly normal COVID (Procedure Consent) Procedure Criteria Procedure Criteria: Yes Elective The surgeon/proceduralist and patient have discussed in detail the risk of exposure to and/or potential harm posed by the COVID-19 virus with having a surgery/procedure at this time versus the risk of delaying the surgery/procedure. It is not possible to know either the risk of delaying the surgery or procedure or chance of getting an infection with perfect accuracy, but a joint decision was made between the patient and the surgeon/proceduralist to proceed at this time with the scheduled surgery/procedure as indicated on the consent form. Assessment and Plan Assessment and Plan (1) PAD (peripheral artery disease): Status: Acute (2) AAA (abdominal aortic aneurysm): Status: Acute Qualifiers: Presence of rupture: without rupture Qualified Code(s): I71.4 - Abdominal aortic aneurysm, without rupture Plan - Dr. Ochoa Hernandez MD: The patient has a 3 cm abdominal aortic aneurysm which would not require treatment. He has had multiple bilateral iliac interventions. The most recent involved a covered stent graft bilateral common iliacs and a self-expanding stent in the left external iliac and a high radial for stent in the bridging of the left common iliac to the external iliac. He has recurrent symptoms now worse in the right lower extremity than the left lower extremity. Previously had always been more symptomatic on the left. Clinically I am not able to palpate a right common femoral pulse. His most recent intervention June 2019 he had active thrombus in the left common femoral artery. He has in the past required emergency intervention with thrombolytics and overnight drips. I have encouraged him that we do not want to get to another emergency situation. I propose for him a abdominal pelvic bilateral lower extremity arteriogram. Likely flow case he may begin on bilateral common iliacs. He is aware that we may require a variety of different balloons and stents for treatment. He has had an opportunity to ask and have questions answered. We will schedule procedure at his discretion. I have again strongly encouraged him to cease his tobacco use. Copy: Dr. Arnie Hernandez M.D., F.A.C.S. I have re-examined the patient. There are no clinical changes since date of exam. Ochoa Hernandez M.D., F.A.C.S.
--- NOTE | 2021-06-21 11:42 | PCM.OPRPT ---
Problems Associated Problem List Diagnoses (1) PAD (peripheral artery disease): Report of Operation Date of Procedure: 06/21/21 Pre-Operative Diagnosis: rECURRENT BILATERAL EXTREMITY MULTISEGMENTAL PERIPHERAL VASCULAR OCCLUSIVE DISEASE Post-Operative Diagnosis: Occlusion right external iliac artery, in-stent stenosis right common iliac artery, in-stent stenosis left common iliac artery, in-stent stenosis left external iliac artery Surgery/Procedure Performed:: Abdominal pelvic arteriogram with right external iliac 6 x 150 mm EverCross angioplasty and 8 x 150 ever flex stenting with subsequent 7 x 200 mm ever cross angioplasty Left common iliac and external iliac 7 x 200 ever cross angioplasty Description of Surgical Findings:: Timeout and informed consent was obtained. 71-year-old gentleman was taken to the special procedures lab placed upon the table. Ancef 2 g were given intravenously. Bilateral groins were sterilely prepped and draped. 2% lidocaine was instilled as local anesthetic under ultrasound guidance left groin area where the left common femoral and bifurcation of the profundofemoral and superficial femoral arteries identified. General sound guidance micropuncture needle inserted micropuncture wire inserted micropuncture catheter inserted 035 J-wire was inserted 5 Croatian sheath was inserted. Using a floppy angled Glidewire placed universal flush catheter into the infrarenal abdominal aorta and AP aortogram was obtained with Visipaque contrast. This demonstrated multiple areas diffuse in-stent stenosis within the left common iliac and left external iliac. Demonstrate in-stent stenosis within the right, iliac and complete occlusion of the right external iliac. I was then able to get the flush catheter into the right common iliac and switched over to using a 035 stiff Glidewire and a 035 quick cross catheter was able to gain antegrade access through the occluded right external iliac and with some effort was able to place it into the right profundofemoral artery. The right superficial femoral artery being occluded at its origin. It is of note that upon manipulating the right external neck initially gave the patient 7000 units of heparin and then based upon ACT measurements he provided another 1000 units of heparin. I then performed the 6 x 150 mm balloon angioplasty of the right external iliac. This provided some degree of recanalization but incomplete. I then was able to switch out and place a 6 x 45 mm Rabie sheath. I then placed the quick cross catheter and exchanged out for a Magic wire. I then placed a 8 x 150 mm ever flex stent incorporating the entire right external iliac and extending into the right common iliac. Having position that well I then took a 7 x 200 mm ever cross balloon and seated it in place. Having achieved that took a completion view demonstrating improvement I then withdrew my 45 mm sheath and performed then a 7 x 200 mm balloon angioplasty with the ever cross balloon. Having achieved that I placed a universal flush catheter into the infrarenal aorta and obtained completion arteriogram now demonstrating dramatic improvement bilateral common iliacs and external iliacs with resolution of the right external iliac occlusion and resolution of the in-stent stenoses involving the right common iliac left common neck and left external iliac. Under fluoroscopic control then I help position place a minx device into the left groin. Good hemostasis was achieved. Patient tolerated procedure well there are no apparent complication blood loss was minimal. Total contrast used was 45 cc He was taken to the recovery area in satisfactory addition without apparent complication Images demonstrate a small infrarenal abdominal aortic aneurysm. Evidence of 2 previous covered stent graft within the bilateral common iliacs with in-stent stenosis diffusely bilaterally. There is evidence of a previous ever flex stent within the left external iliac and previous evidence of a Elmira stent at the bifurcation of the external iliac and common iliac on the left. Diffuse areas of stenosis throughout. There is complete occlusion of the right external iliac. There is flow noted in bilateral internal iliacs. Bilateral superficial femorals appear to be occluded At the initiation of the procedure the patient received 50 mcg of fentanyl and 2 mg of Versed. At the completion of the procedure at his request he received additional 50 mcg of fentanyl IV. Ochoa Hernandez M.D., F.A.C.S.
== END 2021-06-21 15:55 | disposition home or self-care (01) ==
LOC: CLSP 07:26
PROVIDERS: PCP Internal Medicine; Referring Provider Surgery; Visit Provider Surgery
DX: I73.9 Peripheral vascular disease, unspecified (principal); I71.4 Abdominal aortic aneurysm, without rupture; K21.9 Gastro-esophageal reflux disease without esophagitis; I10 Essential (primary) hypertension; I25.10 Atherosclerotic heart disease of native coronary artery without angina pectoris; F17.200 Nicotine dependence, unspecified, uncomplicated; Z79.899 Other long term (current) drug therapy
CPT/HCPCS: 36200; 36245; 36246; 37220; 37221; 37222; 37223; 75625; 75716; 76937; 93005; 99152; 99153; C1760; J7030; J7040; Q9967; C1725; C1769; C1876; C1887; C1894

== ENCOUNTER → 2021-08-06 07:37 | Outpatient (CLI) | payer MEDICARE, SELFPAY ==
--- NOTE | 2021-08-06 07:38 | CDU_ITS ---
Reason For Study: Bilateral carotid stenosis Rt. Velocities/BP Lt. Velocities/BP Prox CCA 74.7/13.4 cm/sec. Prox CCA 80.2/15.1 cm/sec. Mid CCA 64.3/14.7 cm/sec. Mid CCA 72.8/13.9 cm/sec. Dist CCA 66.9/16 cm/sec. Dist CCA 86.3/20 cm/sec. Prox ICA 75.4/11.5 cm/sec. Prox ICA 110.4/16 cm/sec. Mid ICA 113.8/31.6 cm/sec. Mid ICA 117/31.4 cm/sec. Dist ICA 66.7/18.8 cm/sec. Dist ICA 67.9/17.6 cm/sec. Rt. ICA/CCA = 1.70. Lt. ICA/CCA = 1.46. Prox ECA 311/24.7 cm/sec. Prox ECA 156.5/9.4 cm/sec. Rt. Vert. 41.9/9.7 cm/sec. Lt. Vert. 38.6/10.7 cm/sec. Right Extracranial There is heterogeneous, irregular atherosclerotic plaque noted in the right common carotid artery. There is heterogeneous, irregular atherosclerotic plaque noted in the right internal carotid artery. There is heterogeneous, irregular atherosclerotic plaque noted in the right external carotid artery. Antegrade flow is noted in the right vertebral artery. Left Extracranial There is homogeneous, smooth atherosclerotic plaque noted in the left common carotid artery. There is heterogeneous, irregular atherosclerotic plaque noted in the left internal carotid artery. There is heterogeneous, irregular atherosclerotic plaque noted in the left external carotid artery. Antegrade flow is noted in the left vertebral artery. Procedure Carotid Duplex 36623. This is a Carotid Duplex examination using B-mode, color flow and specral Doppler. Exam performed in department. VL/Carotid Duplex Ultrasound Interpretation Summary Calcific plaque at the proximal right internal carotid artery with a less than 50% stenosis Greater than 50% stenosis right external carotid artery Irregular calcific plaque at the proximal left internal carotid artery with les s than 50% stenosis Less than 50% stenosis left external carotid artery Patent antegrade vertebral arteries bilaterally No significant change from September 02, 2019 Ordering Physician: Ochoa Hernandez Referring Physician: Arnie Chiang M.D. Performed By: Darline Valadez RVT
== END ==
PROVIDERS: PCP Internal Medicine; Visit Provider Surgery
DX: I65.23 Occlusion and stenosis of bilateral carotid arteries (principal)
CPT/HCPCS: 93880

== ENCOUNTER → 2023-12-01 | Outpatient (CLI) | payer MEDICARE, SELFPAY ==
--- NOTE | 2023-12-01 08:40 | CDU_ITS ---
Reason For Study: Carotid artery disease Rt. Velocities/BP Lt. Velocities/BP Prox CCA 73/9.7 cm/sec. Prox CCA 81.4/15.1 cm/sec. Mid CCA 64.5/11.6 cm/sec. Mid CCA 64.2/12.6 cm/sec. Dist CCA 57.9/13.5 cm/sec. Dist CCA 60.5/11.4 cm/sec. Prox ICA 94.9/12.6 cm/sec. Prox ICA 102.8/17 cm/sec. Mid ICA 124.7/29.8 cm/sec. Mid ICA 166.7/42.2 cm/sec. Dist ICA 72.8/22.5 cm/sec. Dist ICA 80.9/11.5 cm/sec. Rt. ICA/CCA = 1.93. Lt. ICA/CCA = 2.60. Prox ECA 218.5/8.6 cm/sec. Prox ECA 177/11.1 cm/sec. Rt. Vert. 30.8/8.1 cm/sec. Lt. Vert. 47.6/10.2 cm/sec. Right Extracranial There is heterogeneous, irregular atherosclerotic plaque noted in the right common carotid artery. There is heterogeneous, irregular atherosclerotic plaque noted in the right internal carotid artery. There is heterogeneous, irregular atherosclerotic plaque noted in the right external carotid artery. Antegrade flow is noted in the right vertebral artery. Left Extracranial There is heterogeneous, irregular atherosclerotic plaque noted in the left common carotid artery. There is heterogeneous, irregular atherosclerotic plaque noted in the left internal carotid artery. There is heterogeneous, irregular atherosclerotic plaque noted in the left external carotid artery. Antegrade flow is noted in the left vertebral artery. Procedure This is a Carotid Duplex examination using B-mode, color flow and specral Doppler. Carotid Duplex [id number]. Exam performed in department. VL/Carotid Duplex Ultrasound Interpretation Summary Irregular calcific plaque with shadowing at the proximal right internal carotid artery with less than 50% stenosis but very close to that range. Greater than 50% stenosis right external carotid artery Irregular calcific plaque with shadowing at the proximal left internal carotid artery with 50 to 69% stenosis. Less than 50% stenosis left external carotid artery Patent antegrade vertebral arteries bilaterally Findings suggest progression of stenosis of the left internal carotid artery fr om the previous examination of August 06, 2021 Ordering Physician: Ochoa Hernandez Referring Physician: Arnie Chiang M.D. Performed By: Darline Valadez RVT
--- NOTE | 2023-12-01 08:40 | ART_ITS ---
Reason For Study: PAD Procedure A bilateral lower extremity continuous wave Doppler with analog waveform analysis,segmental pressures,and ankle brachial indexes without exercise. Left Segmental Pressures Left brachial= 145mmHg. Left thigh = 116mmHg. Left calf = 91mmHg. Left posterior tibial artery = 78mmHg. Left dorsalis pedis artery = 64mmHg. Left digit = 65 mmHg. The left dorsalis pedis waveforms are monophasic. The left posterior tibial artery waveforms are biphasic. Right Segmental Pressures Right brachial= 139mmHg. Right thigh = 122mmHg. Right calf = 94mmHg. Right posterior tibial artery = 106mmHg. Right dorsalis pedis artery = 94mmHg. Right digit = 70 mmHg. The right dorsalis pedis waveforms are biphasic. The right posterior tibial artery waveforms are biphasic. Indices The right ankle brachial index by the dorsalis pedis is 0.65. The right ankle brachial index by the posterior tibial artery is 0.73. The right digital-brachial index is 0.48. The left ankle brachial index by the dorsalis pedis is 0.44. The left ankle brachial index by the posterior tibial artery is 0.54. The left digital-brachial index is 0.45. VL/Lower Ext Art Exam w/o Exercis Interpretation Summary Abnormal right lower extremity posterior tibialis and dorsalis pedis ankle-brac hial indices at rest at 0.73 and 0.65 respectively with biphasic Doppler waveforms consistent with m oderately severe arterial occlusive disease. Digital waveforms are noted to bleed depressed cons istent with significant distal small vessel disease. The right digital brachial index is 0. 48 Abnormal left lower extremity posterior tibialis and dorsalis pedis ankle-brach ial indices of 0.54 and 0.44 respectively with biphasic waveform of the posterior tibialis with a m onophasic phasic waveform of the dorsalis pedis. This approaches severe disease. Digital wavefor ms are significantly depressed consistent with significant small vessel disease. The left digital br achial index is 0.45 Findings do not show deterioration from a previous examination of July 13, 2020 Ordering Physician: Ochoa Hernandez Referring Physician: MD Berhane Chiang Performed By: Darline Valadez RVT
--- NOTE | 2023-12-01 08:40 | AAVD_ITS ---
Reason For Study: AAA w/o rupture Aorta Measurements Aorta Doppler Measurements Proximal aorta measures2.21 x 2.23cm. in cross- Peak systolic flow velocities within the proximal sectional axis. aorta measure 92.2 cm/sec. Proximal aorta measures2.22cm. in longitudinal Peak systolic flow velocities within the mid aorta axis. measure 75.9 cm/sec. Mid aorta measures3.14 x 3.31cm. in cross- Peak systolic flow velocities within the distal sectional axis. aorta measure 38.6 cm/sec. Mid aorta measures3.12cm. in longitudinal axis. Distal aorta measures2.70 x 3.01cm. in cross- sectional axis. Distal aorta measures2.54cm. in longitudinal axis. Mural thrombus noted mid-distal aorta. True lumen, mid, 2.25 x 2.21 x 2.11 cm. Left Iliac Artery Left iliac artery measures 0.66 x 0.55 cm. in the cross-sectional axis. Left iliac artery measures 0.58 cm. in the longitudinal axis. Peak systolic velocity in the left iliac artery measures 98.4 cm/sec. Right Iliac Artery Right iliac artery measures 0.55 x 0.61 cm. in the cross-sectional axis. Right iliac artery measures 0.57 cm. in the longitudinal axis. Peak systolic velocity in the right iliac artery measures 160 cm/sec. Procedure Aorta IVC Iliac vasculature or bypass grafts [id number]. Exam performed in department. VL/Abd Aortic/IVC Duplex scan Interpretation Summary Mid abdominal aortic aneurysm measuring 3.14 x 3.31 cm diameter. Mural thrombus is noted in the distal abdominal aorta with a residual true lume n of 2.25 x 2.21 x 2.11 cm Normal aortic flow velocity Left common neck artery 0.66 x 0.55 cm with wall irregularity noted Right common axial 0.55 x 0.61 cm with wall irregularity noted Abdominal aortic aneurysm previously measured 3.02 x 3.07 cm on April 27, 2021 Ordering Physician: Ochoa Hernandez Referring Physician: Arnie Chiang M.D. Performed By: Darline Valadez Dez
--- OUTSIDE RECORDS SUMMARY | 2023-12-01 08:54 | XMS RPT_ITS | CCD ---
Author Name Unknown Address [id number] [place] [address] Organization [facility] Care Team Providers Care 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 Name Role Phone Ochoa Hernandez MD Unavailable [phone] Saba Stone Unavailable Unavailable Jenna Lacy Unavailable Unavailable Андрей VELASQUEZ, Arnie Barnhart Primary Care Provider [phone] Андрей VELASQUEZ, Arnie Barnhart Primary Care Provider [phone] Андрей VELASQUEZ, Arnie Barnhart Primary Care Provider [phone] ARNIE FRASER Primary Care Unavailable ROWENA SARABIA Attending Unavailable ARNIE FRASER Attending Unavailable ARNIE FRASER Primary Care Unavailable ROWENA SARABIA Referring Unavailable ARNIE FRASER Primary Care Unavailable ROWENA SARABIA Referring Unavailable ROWENA SARABIA Attending Unavailable ARNIE FRASER Primary Care Unavailable ARNIE FRASER Referring Unavailable ARNIE FRASER Primary Care Unavailable ARNIE FRASER Attending Unavailable ARNIE FRASER Primary Care Unavailable ARNIE FRASER Referring Unavailable Allergies Allergy Classification Reported Allergen(s) Allergy Type Date of Onset Reaction(s) Facility (3 sources) sulfamethoxazole / trimethoprim drug allergy 7 rash [facility] Work Phone: (16 sources) Sulfamethoxazole / Trimethoprim; Translations: [SULFAMETHOXAZOLE-TR IMETHOPRIM] Drug Allergy 6 Other: See Comments [facility] Medications Current Medications Medication Drug Class(es) Dates Sig (Normalized) Sig (Original) acetaminophen 300 mg / codeine phosphate 60 mg oral tablet (20 sources) Opioid Agonist Start: 05-20-2023 End: 11-16-2023 take 1 tablet by mouth every four hours as needed acetaminophen-code ine (TYLENOL-COD #4) 300-60 mg per tablet Indications: Cervicalgia Take 1 tablet by mouth every 4 hours as needed (30 day supply w/ 2 refills.) for up to 90 days. Do not start before August 18, 2023. 150 tablet 2 08/18/2023 11/16/2023 Active Completed/Discontinued Medications Medication Drug Class(es) Dates Sig (Normalized) Sig (Original) acetaminophen 500 mg / diphenhydrAMINE hydrochloride 25 mg oral tablet (15 sources) Histamine-1 Receptor Antagonist take 2 tablets by mouth every twenty-four hours as needed diphenhydrAMINE-Ac etaminophen 25-500 mg tab Take 2 tablets by mouth at bedtime as needed. 0 Active Problems Active Problems Problem Classification Problem Date Documented Date Episodic/Chronic Aortic; peripheral; and visceral artery aneurysms (15 sources) Abdominal aortic aneurysm; Translations: [Abdominal aortic aneurysm, without rupture] Onset: 05-06-2013 05-06-2013 Chronic Cancer of bladder (15 sources) H/O: malignant neoplasm; Translations: [Personal history of malignant neoplasm of bladder] 09-28-2020 Episodic Cancer of colon (3 sources) Malignant tumor of colon; Translations: [Personal history of other malignant neoplasm of large intestine] 05-15-2017 Chronic Chronic obstructive pulmonary disease and bronchiectasis (20 sources) Chronic obstructive lung disease; Translations: [Chronic bronchitis] Onset: 01-12-2009 05-15-2017 Chronic Disorders of lipid metabolism (20 sources) Hyperlipidemia; Translations: [Pure hypercholesterolemia] Onset: 06-21-2005 05-15-2017 Chronic Esophageal disorders (16 sources) Gastroesophageal reflux disease without esophagitis; Translations: [Gastro-esophageal reflux disease without esophagitis] Onset: 08-08-2016 Chronic Essential hypertension (20 sources) Hypertensive disorder; Translations: [Essential hypertension] Onset: 12-01-2008 05-15-2017 Chronic Immunizations and screening for infectious disease (2 sources) Needs influenza immunization; Translations: [Encounter for immunization] Episodic Nutritional deficiencies (15 sources) Vitamin D deficiency; Translations: [Vitamin D deficiency, unspecified] Onset: 03-05-2014 03-05-2014 Chronic Other aftercare (1 source) Drug therapy finding; Translations: [Other long-term (current) drug therapy] Episodic Other diseases of kidney and ureters (1 source) Renal impairment; Translations: [Disorder of kidney and ureter, unspecified] 07-15-2023 Episodic Other diseases of kidney and ureters (1 source) Disorder of kidney and ureter, unspecified; Translations: [Kidney insufficiency] Onset: 10-20-2023 Episodic Other nervous system disorders (16 sources) Polyneuropathy; Translations: [Polyneuropathy, unspecified] Onset: 04-21-2014 Chronic Other screening for suspected conditions (not mental disorders or infectious disease) (5 sources) Patient encounter status; Translations: [Encounter for screening for malignant neoplasm of respiratory organs] Episodic Peripheral and visceral atherosclerosis (20 sources) Peripheral vascular disease; Translations: [Peripheral vascular disease, unspecified] Onset: 06-21-2005 05-15-2017 Chronic Rheumatoid arthritis and related disease (3 sources) Rheumatoid arthritis with rheumatoid factor, unspecified; Translations: [Rheumatoid arthritis with rheumatoid factor, unspecified] 05-15-2017 Chronic Secondary malignancies (1 source) Secondary malignant neoplasm of intra-abdominal lymph nodes; Translations: [Secondary and unspecified malignant neoplasm of intra-abdominal lymph nodes] Chronic Spondylosis; intervertebral disc disorders; other back problems (20 sources) Neck pain; Translations: [Cervicalgia] Onset: 11-03-2008 Episodic Substance-related disorders (17 sources) Tobacco user; Translations: [Nicotine dependence, unspecified, uncomplicated] Onset: 06-14-2005 Chronic Past or Other Problems Problem Classification Problem Date Documented Da te Episodic/Chronic Cancer of colon (16 sources) History of malignant neoplasm of colon; Translations: [Personal history of other malignant neoplasm of large intestine] Onset: 07-19-2013 Episodic Results Test Name Value Interpretation Reference Range Facil ity Vital Signs Date Time Vital Sign Value Performing Clinician Facility 07-12-2023 08:50-0400 Body temperature 98.4 [degF] Rowena Older ELECTRICAL AND [employer] UP MECHANIC.FIELD SALES EXECUTIVE Work Phone: [facility] 07-12-2023 08:50-0400 Body weight 59.42 kg Rowena Older ELECT[employer]ICAL [employer] MECHANIC.FIELD SALES EXECUTIVE Work Phone: [facility] 07-12-2023 08:50-0400 Diastolic blood pressure 72 mm[Hg] Rowena Older ELECT[employer]ICAL AND [employer] UP MECHANIC.FIELD SALES EXECUTIVE Work Phone: [facility] 07-12-2023 08:50-0400 Heart rate 76 /min Rowena Older ELECTRICAL AND [employer] UP MECHANIC.FIELD SALES EXECUTIVE Work Phone: [facility] 07-12-2023 08:50-0400 Respiratory rate 20 /min Rowena Older ELECTRICAL AND [employer] UP MECHANIC.FIELD SALES EXECUTIVE Work Phone: [facility] 07-12-2023 08:50-0400 SaO2% (BldA) [Mass fraction] 94 % Rowean Older ELECTRICAL AND [employer] UP MECHANIC.FIELD SALES EXECUTIVE Work Phone: [facility] 07-12-2023 08:50-0400 Systolic blood pressure 132 mm[Hg] Rowena Older ELECTRICAL AND [employer] M[employer] UP MECHANIC.FIELD SALES EXECUTIVE Work Phone: [facility] 01-17-2023 07:53-0400 Body weight 58.06 kg Rowena Older ELECTRICAL AND [employer] UP MECHANIC.FIELD SALES EXECUTIVE Work Phone: [facility] 01-17-2023 07:53-0400 Diastolic blood pressure 58 mm[Hg] Rowena Older ELECTRICAL AND [employer] M[employer] UP MECHANIC.FIELD SALES EXECUTIVE Work Phone: [facility] 01-17-2023 07:53-0400 Heart rate 100 /min Rowena Older ELECTRICAL AND [employer] M[employer] UP MECHANIC.FIELD SALES EXECUTIVE Work Phone: [facility] 01-17-2023 07:53-0400 Respiratory rate 14 /min Rowena Older ELECTRICAL AND [employer] UP MECHANIC.FIELD SALES EXECUTIVE Work Phone: [facility] 01-17-2023 07:53-0400 Systolic blood pressure 116 mm[Hg] Rowena Older ELECTRICAL AND [employer] UP MECHANIC.FIELD SALES EXECUTIVE Work Phone: [facility] 10-10-2022 08:56-0500 Body height 171.5 cm Rowena Older ELECTRICAL AND [employer] UP MECHANIC.FIELD SALES EXECUTIVE Work Phone: [facility] 10-10-2022 08:56-0500 Body weight 59.88 kg Rowena Older ELECTRICAL AND [employer] M[employer] UP MECHANIC.FIELD SALES EXECUTIVE Work Phone: [facility] 10-10-2022 08:56-0500 Diastolic blood pressure 67 mm[Hg] Rowena Older ELECTRICAL AND [employer] M[employer] UP MECHANIC.FIELD SALES EXECUTIVE Work Phone: [facility] 10-10-2022 08:56-0500 Heart rate 103 /min Rowena Older ELECTRICAL AND [employer] M[employer] UP MECHANIC.FIELD SALES EXECUTIVE Work Phone: [facility] 10-10-2022 08:56-0500 Respiratory rate 18 /min Rowena Older ELECTRICAL AND [employer] M[employer] UP MECHANIC.FIELD SALES EXECUTIVE Work Phone: [facility] 10-10-2022 08:56-0500 Systolic blood pressure 113 mm[Hg] Rowena Older ELECTRICAL AND [employer] M[employer] UP MECHANIC.FIELD SALES EXECUTIVE Work Phone: [facility] 07-12-2022 09:36-0400 Body temperature 98.6 [degF] Rowena Older ELECTRICAL AND [employer] M[employer] UP MECHANIC.FIELD SALES EXECUTIVE Work Phone: [facility] 07-12-2022 09:36-0400 Body weight 60.78 kg Rowena Older ELECTRICAL AND [employer] M[employer] UP MECHANIC.FIELD SALES EXECUTIVE Work Phone: [facility] 07-12-2022 09:36-0400 Diastolic blood pressure 68 mm[Hg] Rowena Older ELECTRICAL AND [employer] M[employer] UP MECHANIC.FIELD SALES EXECUTIVE Work Phone: [facility] 07-12-2022 09:36-0400 Heart rate 92 /min Rowena Older ELECTRICAL AND [employer] M[employer] UP MECHANIC.FIELD SALES EXECUTIVE Work Phone: [facility] 07-12-2022 09:36-0400 Respiratory rate 12 /min Rowena Older ELECTRICAL AND [employer] M[employer] UP MECHANIC.FIELD SALES EXECUTIVE Work Phone: [facility] 07-12-2022 09:36-0400 Systolic blood pressure 116 mm[Hg] Rowena Older ELECTRICAL AND [employer] M[employer] UP MECHANIC.FIELD SALES EXECUTIVE Work Phone: [facility] 04-15-2022 09:30-0400 Diastolic blood pressure 68 mm[Hg] Rowena Older ELECTRICAL AND [employer] M[employer] UP MECHANIC.FIELD SALES EXECUTIVE Work Phone: [facility] 04-15-2022 09:30-0400 Systolic blood pressure 132 mm[Hg] Rowena Older ELECTRICAL AND [employer] MOCK UP MECHANIC.FIELD SALES EXECUTIVE Work Phone: [facility] 04-15-2022 09:12-0400 Body weight 60.33 kg Rowena Older ELECTRICAL AND RADIO M[employer] UP MECHANIC.FIELD SALES EXECUTIVE Work Phone: [facility] 04-15-2022 09:12-0400 Heart rate 76 /min Rowena Older ELECTRICAL AND [employer] M[employer] UP MECHANIC.FIELD SALES EXECUTIVE Work Phone: [facility] 04-15-2022 09:12-0400 Respiratory rate 18 /min Rowena Older ELECTRICAL AND [employer] M[employer] UP MECHANIC.FIELD SALES EXECUTIVE Work Phone: [facility] 06-15-2017 08:48-0400 BMI (Body Mass Index) 21.44 kg/m2 [facility] Work Phone: 06-15-2017 08:48-0400 Body Temperature 98 [degF] [facility] Work Phone: 06-15-2017 08:48-0400 BP Diastolic 90 mm[Hg] [facility] Work Phone: 06-15-2017 08:48-0400 BP Systolic 165 mm[Hg] [facility] Work Phone: 06-15-2017 08:48-0400 Height 175.26 cm [facility] Work Phone: 06-15-2017 08:48-0400 Pulse (Heart Rate) 70 /min [facility] Work Phone: 06-15-2017 08:48-0400 Respiratory Rate 18 /min [facility] Work Phone: 06-15-2017 08:48-0400 Weight 65.86 kg [facility] Work Phone: Encounters Encounter Date Encounter Type Care Provider Facility Start: 10-20-2023 End: 10-21-2023 ambulatory ARNIE FRASER Facility:[facility] Start: 08-22-2023 Refill Rowena Older E[employer] AND [employer] UP MECHANIC .FIELD SALES EXECUTIVE Work Phone: [facility] Procedures Date Procedure Procedure Detail Performing Clinician Start: 07-14-2023 Lipid 1996 panel - S deyanira or Plasma Arnie Fraser MD Work Phone: Start: 07-12-2023 INFLUENZA VACCINE, P RSV FREE, AGE 65+ YR, HIGH DOSE, QUADRIVALENT (FLUZONE HIGH-DOSE) Rowena Older ELECTRICAL AND [employer] M[employer] UP MECHANIC.FIELD SALES EXECUTIVE Work Phone: Start: 07-12-2022 INFLUENZA SEASONAL QUADRIVALENT HIGH DOSE AGE 65+ Rowena Older ELECTRICAL AND [employer] M[employer] UP MECHANIC.FIELD SALES EXECUTIVE Work Phone: Start: 07-04-2022 Lipid 1996 panel - S deyanira or Plasma Rowena Older ELECTRICAL AND [employer] M[employer] UP MECHANIC.FIELD SALES EXECUTIVE Work Phone: Start: 04-15-2022 Adult depression screening assessment Rowena Older ELECTRICAL AND [employer] M[employer] UP MECHANIC.FIELD SALES EXECUTIVE Work Phone: Start: 03-30-2021 H/O: surgery S/P ileal conduit Rowena O lder ELECTRICAL AND [employer] M[employer] UP MECHANIC.FIELD SALES EXECUTIVE Work Phone: Start: 07-04-2017 Colonoscopy Rowena Older ELECTRICAL AND [employer] M[employer] UP MECHANIC.FIELD SALES EXECUTIVE Work Phone: H/O: surgery S/P ileal condui t (HCC) Rowena Older ELECTRICAL AND [employer] M[employer] UP MECHANIC.FIELD SALES EXECUTIVE Work Phone: H/O: surgery S/P ileal condui t (HCC) Rowena Older ELECTRICAL AND RADIO MOCK UP MECHANIC.FIELD SALES EXECUTIVE Work Phone: Plan of Treatment Date Care Activity Detail Author Start: 04-04-2029 Urine microalbumin profile [facility] Start: 07-14-2028 Lipid 1996 panel - S deyanira or Plasma Lipid Screening [facility] Start: 07-04-2027 Lipid 1996 panel - S deynaira or Plasma Lipid Screening [facility] Start: 07-04-2027 LIPID SCREEN LIPID SCREEN [facility] Start: 07-14-2026 Diabetes Screening Diabetes Screenin [facility] Start: 03-23-2026 LIPID SCREEN LIPID SCREEN [facility] Start: 07-04-2025 DIABETES SCREEN DIABETES SCREEN [facility] Start: 07-04-2025 Diabetes Screening Diabetes Screenin g [facility] Start: 07-12-2024 Annual PCP Team Quarry Supervisor Open Pit tray Disease Visit Annual PCP Team Chronic Disease Visit [facility] Start: 04-20-2024 ANNUAL PCP TEAM MARBLE CHIP TERRAZZO WORKER TRAY DISEASE VISIT ANNUAL PCP TEAM CHRONIC DISEASE VISIT [facility] Start: 04-20-2024 COVID-19 VACCINE (3 - Moderna series) COVID-19 VACCINE (3 - Moderna series) [facility] Immunizations Immunization Date Immunization Notes Care Provider Fa lizette 07-12-2023 influenza (HD-IIV4) vaccine, age 65+ yr, high dose, quadrivalent, PF (FLUZONE HIGH-DOSE) Rowena Older ELECTRICAL AND [employer] M[employer] UP MECHANIC.FIELD SALES EXECUTIVE Work Phone: [facility] Work Phone: 07-12-2022 influenza, high-dose , quadrivalent vaccine (FLUZONE HIGH DOSE QUADRIVALENT) Rowena Older ELECTRICAL AND RAD[employer] MOCK UP MECHANIC.FIELD SALES EXECUTIVE Work Phone: [facility] Work Phone: 07-09-2021 influenza, high-dose , quadrivalent vaccine (FLUZONE HIGH DOSE QUADRIVALENT) Rowena Older ELECTRICAL AND [employer] MOCK UP MECHANIC.FIELD SALES EXECUTIVE Work Phone: [facility] 01-20-2021 COVID-19 vaccine, fu ll dose (MODERNA) Rowena Older ELECTRICAL AND [employer] M[employer] UP MECHANIC.FIELD SALES EXECUTIVE Work Phone: [facility] Work Phone: 12-23-2020 COVID-19 vaccine, fu ll dose (MODERNA) Rowena Older ELECTRICAL AND [employer] M[employer] UP MECHANIC.FIELD SALES EXECUTIVE Work Phone: [facility] Work Phone: 08-14-2020 influenza, high-dose , quadrivalent vaccine (FLUZONE HIGH DOSE QUADRIVALENT) Rowena Older ELECTRICAL AND RADIO MOCK UP MECHANIC.FIELD SALES EXECUTIVE Work Phone: [facility] Work Phone: 08-23-2019 influenza, high dose seasonal, preservative-free Rowena Older ELECTRICAL AND [employer] M[employer] UP MECHANIC.FIELD SALES EXECUTIVE Work Phone: [facility] 04-04-2019 tetanus toxoid, redu tami diphtheria toxoid, and acellular pertussis vaccine, adsorbed Rowena Older ELECTRICAL AND [employer] M[employer] UP MECHANIC.FIELD SALES EXECUTIVE Work Phone: [facility] Work Phone: 08-07-2018 influenza, high dose seasonal, preservative-free Rowena Older ELECTRICAL AND [employer] M[employer] UP MECHANIC.FIELD SALES EXECUTIVE Work Phone: [facility] Work Phone: 07-07-2017 influenza, high dose seasonal, preservative-free Rowena Older ELECTRICAL AND [employer] M[employer] UP MECHANIC.FIELD SALES EXECUTIVE Work Phone: [facility] Work Phone: 08-23-2016 pneumococcal polysaccharide vaccine, 23 valent Rowena Older ELECTRICAL AND [employer] M[employer] UP MECHANIC.FIELD SALES EXECUTIVE Work Phone: [facility] Work Phone: 07-05-2016 influenza, high dose seasonal, preservative-free Rowena Older ELECTRICAL AND [employer]IO MOCK UP MECHANIC.FIELD SALES EXECUTIVE Work Phone: [facility] 07-13-2015 influenza, high dose seasonal, preservative-free Rowena Older ELECTRICAL AND RADIO MOCK UP MECHANIC.FIELD SALES EXECUTIVE Work Phone: [facility] 05-25-2015 pneumococcal conjuga te vaccine, 13 valent Rowena Older ELECTRICAL AND [employer]IO M[employer] UP MECHANIC.FIELD SALES EXECUTIVE Work Phone: [facility] 08-20-2014 influenza, high dose seasonal, preservative-free Rowena Older ELECTRICAL AND [employer] M[employer] UP MECHANIC.FIELD SALES EXECUTIVE Work Phone: [facility] 08-16-2013 influenza virus vacc ine, unspecified formulation Rowena Older ELECTRICAL AND [employer] M[employer] UP MECHANIC.FIELD SALES EXECUTIVE Work Phone: [facility] Work Phone: 04-22-2011 pneumococcal polysaccharide vaccine, 23 valent Rowena Older ELECTRICAL AND [employer] M[employer] UP MECHANIC.FIELD SALES EXECUTIVE Work Phone: [facility] 07-08-2010 pneumococcal polysaccharide vaccine, 23 valent Rowena Older ELECTRICAL AND [employer] M[employer] UP MECHANIC.FIELD SALES EXECUTIVE Work Phone: [facility] Work Phone: Payers Date Payer Category Payer Medicare [employer] MEDICARE [employer] GOLD PLUS [id number] 2021-Present [id number] [place] [id number] O [id number] 2019 Medicare [id number] 2019 Private Health Insurance [id number] Social History Date Type Detail Facility Start: 04-01-2021 End: 07-12-2022 Tobacco smoking status NHIS Smokes tobacco daily [facility] Work Phone: History of tobacco use Cigarette Smoker [facility] Start: 04-15-2022 End: 07-12-2023 Alcohol intake Current drinker of alcohol (finding) [facility] Start: 01-06-2022 History SDOH Alcohol Frequency 2 [facility] Start: 01-06-2022 History SDOH Alcohol Binge 1 [facility] Start: 10-17-2019 History SDOH Alcohol Comment occasional beer [facility] Start: 01-06-2022 History SDOH Social Connections Phone 5 [facility] Start: 01-06-2022 History SDOH Social Connections Get Together 3 [facility] Start: 1950 Sex Assigned At Not on file [facility] Start: 04-01-2021 End: 04-20-2023 Cigarettes smoked current (pack per day) - Reported 1 [facility] Start: 04-01-2021 End: 07-12-2022 Tobacco use and exposure Smokeless tobacco non-user [facility] Work Phone: Start: 07-02-2022 End: 07-12-2022 Exposure to SARS-CoV-2 (event) Not sure [facility] Work Phone: Start: 01-05-2022 End: 04-20-2023 Social connection and isolation panel [facility] Do you belong to any clubs or organizations such as sikhism groups, unions, fraternal or athletic groups, or school groups? No [facility] Are you now , , , , never or living with a partner? [facility] How often to you hav e a drink containing alcohol? Monthly or less [facility] How many standard dr inks containing alcohol do you have on a typical day? 3 or 4 [facility] How often do you hav e 6 or more drinks on 1 occasion? Never [facility] How hard is it for y ou to pay for the very basics like food, housing, medical care, and heating Somewhat hard [facility] Adult Depression Screening Assessment 0 [facility] Work Phone: Do you feel stress - tense, restless, nervous, or anxious, or unable to sleep at night because your mind is troubled all the time - these days [OSQ] Not at all [facility] (I/We) worried wheth er (my/our) food would run out before (I/we) got money to buy more. Never true [facility] Medical Equipment Procedure Code Equipment Code Equipment Origin al Text Equipment Identifier Dates Port Implantable Power Port 6fr - [id number] Start: 08-28-2013 Clinical Notes 09-07-2017 to 10-20-2023 Telephone Encounter - Laquita Merida DEWAYNE - 08/22/2023 2:01 PM EDTPatient InstructionsRowena Capone ELECTRICAL AND [employer] M[employer] UP MECHANIC.FIELD SALES EXECUTIVE - 07/12/2023 9:16 AM Gerald Capone ELECTRICAL AND [employer]IO MOCK UP MECHANIC.FIELD SALES EXECUTIVE - 01/17/2023 7:57 AM EDTPatient Instructions Note Date & Type Note Facility 10-20-2023 Note HNO ID: [id number] Author: Arnie Fraser MD Service: ? Author Type: Physician Type: Progress Notes Filed: 10/20/2023 9:13 AM Note Text: This note was created using [employer]zby. Subjective Aleks Guerrier is a 73 year old male. His chronic pain was controlled, and opioid use has been stable over the years. We updated his opioid agreement. We reviewed his labs from June. He needed referral to see Dr. Hernandez for colonoscopy and vascular follow up. He enjoyed fried potatoes. His lipids and his hypertension have been trending up. Review of Systems Constitutional: Negative for fever and unexpected weight change. Respiratory: Positive for cough. Negative for shortness of breath and wheezing. Cardiovascular: Negative for chest pain, palpitations and leg swelling. Stable claudication. Gastrointestinal: Negative for constipation. Genitourinary: Negative for difficulty urinating. Ileal conduit. Musculoskeletal: Positive for arthralgias and neck pain. Neurological: Negative for dizziness and headaches. ACTIVE PROBLEM LIST Tobacco Use Disorder Pure Hypercholesterolemia Peripheral Vascular Disease, Unspecified (Hcc) Cervicalgia Essential Hypertension Chronic Bronchitis (Hcc) Aaa (Abdominal Aortic Aneurysm) (Hcc) History of Colon Cancer Vitamin D Deficiency Peripheral Polyneuropathy History of Bladder Cancer Gastroesophageal Reflux Disease S/P Ileal Conduit (Hcc) Social History Tobacco Use Smoking status: Every Day Packs/day: 1.00 Years: 53.00 Additional pack years: 0.00 Total pack years: 53.00 Types: Cigarettes Start date: 1970 Smokeless tobacco: Never Vaping Use Vaping Use: Never used Substance Use Topics Alcohol use: Yes Comment: occasional beer Drug use: No Current Outpatient Medications Medication Sig atorvastatin (LIPITOR) 20 mg tablet Take 1 tablet by mouth once daily. amLODIPine (NORVASC) 10 mg tablet Take 1 tablet by mouth once daily. ibuprofen (MOTRIN) 800 mg tablet Take 1 tablet by mouth three times a day as needed for pain. lisinopril (ZESTRIL) 10 mg tablet Take 1 tablet by mouth once daily. acetaminophen-codeine (TYLENOL-COD #4) 300-60 mg per tablet Take 1 tablet by mouth every 4 hours as needed (30 day supply w/ 2 refills.) for up to 90 days. Do not start before August 18, 2023. predniSONE (DELTASONE) 10 mg tablet Take 1 tablet by mouth once daily as needed (joint swelling). gabapentin (NEURONTIN) 300 mg capsule Take 2 capsules by mouth three times daily for 360 days. ondansetron (ZOFRAN) 8 mg tablet Take 1 tablet by mouth every 8 hours as needed for nausea/vomiting. clopidogrel (PLAVIX) 75 mg tablet Take 1 tablet by mouth once daily. Post stents. albuterol HFA (VENTOLIN HFA) 90 mcg/actuation inhaler Inhale 2 Puffs as instructed every 4 hours as needed for Wheezing/Shortness of Breath. diphenhydrAMINE-Acetaminophen 25-500 mg tab Take 2 tablets by mouth at bedtime as needed. No current facility-administered medications for this visit. Objective BP 144/65 Pulse 78 Resp 16 Ht 172 cm (5' 7.72 ) Wt 60.8 kg (134 lb) SpO2 93% BMI 20.55 kg/m? Physical Exam Constitutional: General: He is not in acute distress. HENT: Head: Normocephalic. Eyes: Conjunctiva/sclera: Conjunctivae normal. Neck: Vascular: No carotid bruit. Cardiovascular: Rate and Rhythm: Normal rate and regular rhythm. Pulses: Decreased pulses. Heart sounds: No murmur heard. No gallop. Pulmonary: Effort: No respiratory distress. Breath sounds: Rhonchi present. No wheezing or rales. Abdominal: Palpations: Abdomen is soft. Tenderness: There is no abdominal tenderness. Comments: Ileal conduit, RLQ Musculoskeletal: Right lower leg: No edema. Left lower leg: No edema. Neurological: General: No focal deficit present. Mental Status: He is alert. Gait: Gait normal. Test results pertinent to today's visit were reviewed and discussed with the patient. Assessment and Plan 1. Medicare annual wellness visit, subsequent - ICD9: V70.0, ICD10: Z00.00 (primary diagnosis) See wellness note. 2. Cervicalgia - ICD9: 723.1, ICD10: M54.2 Chronic pain, stable chronic opioid use. - ACETAMINOPHEN 300 MG-CODEINE 60 MG TABLET 3. Peripheral vascular disease, unspecified (HCC) - ICD9: 443.9, ICD10: I73.9 Dr. Ochoa Hernandez. - CONSULT TO GENERAL SURGERY 4. History of colon cancer - ICD9: V10.05, ICD10: Z85.038 Dr. Ochoa Hernandez - CONSULT TO GENERAL SURGERY 5. Abdominal aortic aneurysm (AAA) without rupture, unspecified part (HCC) - ICD9: 441.4, ICD10: I71.40 See above. - CONSULT TO GENERAL SURGERY 6. Kidney insufficiency - ICD9: 593.9, ICD10: N28.9 Recheck today. Further recommendations will be made if progressing. - BASIC METABOLIC PNL 7. Pure hypercholesterolemia - ICD9: 272.0, ICD10: E78.00 He preferred to work on dietary changes first, rather than increasing LIPITOR now. - BASIC METABOLIC PNL (more content not included)... [facility] 10-20-2023 Note HNO ID: [id number] Author: Arnie Fraser MD Service: ? Author Type: Physician Type: Progress Notes Filed: 10/20/2023 9:13 AM Note Text: Aleks Guerrier is a 73 year old male here for a Medicare wellness visit. Medicare Health Risk Assessment General Health Good Exercise: Minutes/Day 10 min Exercise: Days/Week 3 days Alcohol: Daily Use Monthly or less Alcohol: Drinks/Day 1 or 2 Alcohol: 6 or more drinks Never Feel off balance Yes (No falls.) Concerns: Teeth/Dentures No Concerns: Sexual function No Troubled by feelings None of the above Frequency: Eating healthy diet More than half the days ADLs requiring help None of the above Safety precautions in home/vehicle Yes Smoke, vape, chews tobacco Yes, and I might quit Difficulty hearing No Difficulty seeing No Current Providers Specialists: I have reviewed specialist-related care of the patient in the medical record. Current care team: Patient Care Team: Arnie Fraser MD as PCP - General Outside specialists seen: Dr. Ochoa Hernandez, General Surgery (endoscopy) and Vascular Surgery. Dr. Rob Baig, ophthalmology. Dr. Leonidas Hunter, [facility]. Medical/Family history review Reviewed and updated problem list, medical/surgical/family/social history, medications, and allergies. Opioid use review Opioid Medications (last 90 days) Some values may be hidden. Unless noted otherwise, only the newest values recorded on each date are displayed. Opioid Medications acetaminophen-codeine (TYLENOL-COD #4) 300-60 mg per tablet Dose: 1 tablet EVERY 4 HOURS NEEDED 30 day supply w/ 2 refills. Starting date: 08/18/2023 Ending date: 11/16/2023 Medication marked as long-term Prescribed acetaminophen with codeine (last 90 days) Does patient have risk factors for opioid abuse? No Pain overview Current pain concerns and treatment plan reviewed. Patient stable on current treatment plan. Depression screening Depression Screening PHQ-2 Score PHQ-9 Score 10/20/2023 0 - Depression screening tool completed and reviewed. Based on score and interview, patient is not at risk for depression. Screening tool discussed with patient, and I recommended no further intervention at this time. Cognitive screening Mini Cog Score: 5 Cognitive screening reviewed and no further action needed (score 3-5) Functional Observation Was the patient's timed Up AND Go test unsteady or ? 12 seconds? No Advance Care Planning Patient did not wish or was not able to name a surrogate decision maker or provide an advance care plan Measurements BP 144/78 Pulse 78 Resp 16 Ht 5' 7.717 (1.72m) Wt 134 lb (60.8kg) SpO2 93% BMI 20.55 kg/(m2). Additional screenings: No results found. Assessment/Plan Medicare annual wellness visit, subsequent (Z00.00) - Counseled on healthy diet and regular exercise - Fall avoidance information provided - Personalized prevention plan provided - Vaccinations: Covid declined. Shingrix deferred. RSV information given. [facility] 08-22-2023 Miscellaneous Notes Patient has been identified by name and date of : Yes Patient phones for refill(s): Requested Prescriptions Pending Prescriptions Disp Refills amLODIPine (NORVASC) 10 mg tablet 90 tablet 3 Sig: Take 1 tablet by mouth once daily. ibuprofen (MOTRIN) 800 mg tablet 270 tablet 3 Sig: Take 1 tablet by mouth three times a day as needed for pain. lisinopril (ZESTRIL) 10 mg tablet 90 tablet 3 Sig: Take 1 tablet by mouth once daily. Date of last office visit in primary care: 07/12/2023 Date of next office visit in primary care: 10/20/2023 Last 2 Encounter Wt Readings: Date: Wt: 07/12/2023 59.4 kg (131 lb) 04/20/2023 60.3 kg (133 lb) Previous labs/tests for medication: Blood Pressure: BUN (mg/dL) Date Value 07/14/2023 18 03/23/2021 16 Sodium (mmol/L) Date Value 07/14/2023 139 03/23/2021 140 Last 1 Encounter BP Readings: Date: BP: 07/12/2023 132/72 Please advise. Thank you. Laquita Merida LPN. documented in this encounter [facility] 07-12-2023 Note HNO ID: [id number] Author: Rowena Capone APRN.[employer] EXECUTIVE Service: ? Author Type: Nurse Practitioner Type: Progress Notes Filed: 07/12/2023 9:51 AM Note Text: CC: Patient presents with: F/U 3 Month Immunizations: Flu vaccination HPI Aleks Quintero Guerrier is a 73 year old male who presents today for above. He is taking Tylenol with codeine for chronic neck pain. Continues to do well on current dose. Pain is controlled and manageable. Does not interfere with ADL's or quality of life. Denies side effects including constipation, confusion, drowsiness or falls Review of Systems See HPI PAST MEDICAL HISTORY Diagnosis Date AAA (abdominal aortic aneurysm) (HCC) 05/06/2013 Bladder cancer (HCC) 08/29/2016 Bladder tumor BPH without urinary obstruction 08/04/2015 Cervicalgia 11/03/2008 CHRONIC AIRWAY OBSTRUCTION NEC 01/12/2009 Colon cancer (HCC) 07/19/2013 s/p laparoscopic with conversion to open low anterior resection of the colon with abscess and appendectomy and completed chemo 2013 HYPERTENSION NOS 12/01/2008 Hypertrophy of prostate without urinary obstruction and other lower urinary tract symptoms (LUTS) 12/01/2008 Malignant neoplasm of overlapping sites of bladder (HCC) Pain in limb 06/14/2005 PERIPH VASCULAR DIS NOS 06/21/2005 s/p bilateral common iliac artery [place] stenting. s/p angioplasty of instent PAD stent 2013 PURE HYPERCHOLESTEROLEM 06/21/2005 Rheumatoid arthritis(714.0) 03/04/2010 hands Tobacco use disorder 06/14/2005 PAST SURGICAL HISTORY Procedure Laterality Date ANGIOPLASTY FEMORAL/POP Bilateral 07/03/2019 multiple stents (4) ANGIOPLASTY-ILIAC Bilateral 06/21/2021 R exteranl iliac angioplasty/stent. L common iliac, external iliac angioplasty COLECTOMY PRTL W/COLOPROCTOSTOMY 07/25/2013 COLONOSCOPY 07/04/2017 recheck in 3 years, Dr. Hernandez COLONOSCOPY FLX DX W/COLLJ SPEC WHEN PFRMD 07/12/2013 Colonoscopy COLONOSCOPY FLX DX W/COLLJ SPEC WHEN PFRMD 07/11/2014 repeat in 3 years ESOPHAGOGASTRODUODENOSCOPY TRANSORAL DIAGNOSTIC 07/12/2013 EGD INSJ TUNNELED CTR VAD W/SUBQ PORT AGE 5 YR/> 08/28/2013 RIGHT LAP CYSTECTOMY COMPLETE WITH CONDUIT 09/08/2016 LAPAROSCOPIC APPENDECTOMY 07/25/2013 LAPAROSCOPIC RADICAL PROSTATECTOMY 08/29/2016 Cysto-prostatectomy, Ileal conduit, pelvic LN dissection PROCTOSGMDSC RGD DX W/WO COLLJ SPEC BR/WA SPX 07/19/2013 REVASCULARIZATION ILIAC ARTERY ANGIOP 1ST VSL 09/12/2011 RMVL [place] CTR VAD W/SUBQ PORT/SENIOR DIRECTOR INSIGHT CTR/PRPH INSJ 09/03/2014 Removal right IJ port TRANSLUMINAL ANGIOPLASTY - ILIAC 01/15/2004 bilateral stents TRANSLUMINAL ANGIOPLASTY - ILIAC 04/14/2014 bilateral. ALLERGIES Bactrim [Sulfamethoxazole-Trimethoprim] MEDICATIONS predniSONE (DELTASONE) 10 mg tablet Take 1 tablet by mouth once daily as needed (joint swelling). acetaminophen-codeine (TYLENOL-COD #4) 300-60 mg per tablet Take 1 tablet by mouth every 4 hours as needed (30 day supply w/ 2 refills.) for up to 90 days. Do not start before May 20, 2023. gabapentin (NEURONTIN) 300 mg capsule Take 2 capsules by mouth three times daily for 360 days. atorvastatin (LIPITOR) 20 mg tablet Take 1 tablet by mouth once daily. amLODIPine (NORVASC) 10 mg tablet Take 1 tablet by mouth once daily. ibuprofen (MOTRIN) 800 mg tablet Take 1 tablet by mouth three times daily as needed for pain. lisinopril (ZESTRIL, PRINIVIL) 10 mg tablet Take 1 tablet by mouth once daily. ondansetron (ZOFRAN) 8 mg tablet Take 1 tablet by mouth every 8 hours as needed for nausea/vomiting. clopidogrel (PLAVIX) 75 mg tablet Take 1 tablet by mouth once daily. Post stents. albuterol HFA (VENTOLIN HFA) 90 mcg/actuation inhaler Inhale 2 Puffs as instructed every 4 hours as needed for Wheezing/Shortness of Breath. diphenhydrAMINE-Acetaminophen 25-500 mg tab Take 2 tablets by mouth at bedtime as needed. FAMILY HISTORY Problem Relation Age of Onset Stroke Father Ischemic Heart Disease Mother Heart Maternal Grandmother Heart Brother Social History Tobacco Use Smoking status: Every Day Packs/day: 1.00 Years: 51.00 Additional pack years: 0.00 Total pack years: 51.00 Types: Cigarettes Smokeless tobacco: Never Vaping Use Vaping Use: Never used Substance Use Topics Alcohol use: Yes Comment: occasional beer Drug use: No BP 132/72 (BP Site: Left Arm, BP Position: Sitting, BP Cuff Size: Regular Adult) Pulse 76 Temp 36.9 ?C (98.4 ?F) (Temporal) Resp 20 Wt 59.4 kg (131 lb) SpO2 94% BMI 20.21 kg/m? Physical Exam Vitals reviewed. Constitutional: Appearance: He is not ill-appearing. Cardiovascular: Rate and Rhythm: Normal rate and regular rhythm. Heart sounds: Normal heart sounds. No murmur heard. Pulmonary: Effort: Pulmonary effort is normal. Breath sounds: Normal breath sounds. No wheezing, rhonchi or rales. Neurological: Mental Status: He is alert. Psychiatric: Mood and Affect: Mood normal. Behavior: Behavior normal. Health maintenance r (more content not included)... [facility] 07-12-2023 Instructions Rowena Capone APRN.[employer] EXECUTIVE - 07/12/2023 9:18 AM EDT Recombinant shingles vaccine (Shingrix) is recommended; 2 doses 2-6 months apart. Please read information, check with your insurance, and schedule vaccination at your local pharmacy. A prescription is not required. If you are certain you have coverage to receive this vaccine in the office, we can schedule this for you. documented in this encounter [facility] 07-12-2023 History of Present illness Narrative CC: Patient presents with: F/U 3 Month Immunizations: Flu vaccination HPI Aleks Guerrier is a 73 year old male who presents today for above. He is taking Tylenol with codeine for chronic neck pain. Continues to do well on current dose. Pain is controlled and manageable. Does not interfere with ADL's or quality of life. Denies side effects including constipation, confusion, drowsiness or falls Review of Systems See HPI PAST MEDICAL HISTORY Diagnosis Date AAA (abdominal aortic aneurysm) (HCC) 05/06/2013 Bladder cancer (HCC) 08/29/2016 Bladder tumor BPH without urinary obstruction 08/04/2015 Cervicalgia 11/03/2008 CHRONIC AIRWAY OBSTRUCTION NEC 01/12/2009 Colon cancer (HCC) 07/19/2013 s/p laparoscopic with conversion to open low anterior resection of the colon with abscess and appendectomy and completed chemo 2013 HYPERTENSION NOS 12/01/2008 Hypertrophy of prostate without urinary obstruction and other lower urinary tract symptoms (LUTS) 12/01/2008 Malignant neoplasm of overlapping sites of bladder (HCC) Pain in limb 06/14/2005 PERIPH VASCULAR DIS NOS 06/21/2005 s/p bilateral common iliac artery [place] stenting. s/p angioplasty of instent PAD stent 2013 PURE HYPERCHOLESTEROLEM 06/21/2005 Rheumatoid arthritis(714.0) 03/04/2010 hands Tobacco use disorder 06/14/2005 PAST SURGICAL HISTORY Procedure Laterality Date ANGIOPLASTY FEMORAL/POP Bilateral 07/03/2019 multiple stents (4) ANGIOPLASTY-ILIAC Bilateral 06/21/2021 R exteranl iliac angioplasty/stent. L common iliac, external iliac angioplasty COLECTOMY PRTL W/COLOPROCTOSTOMY 07/25/2013 COLONOSCOPY 07/04/2017 recheck in 3 years, Dr. Hernandez COLONOSCOPY FLX DX W/COLLJ SPEC WHEN PFRMD 07/12/2013 Colonoscopy COLONOSCOPY FLX DX W/COLLJ SPEC WHEN PFRMD 07/11/2014 repeat in 3 years ESOPHAGOGASTRODUODENOSCOPY TRANSORAL DIAGNOSTIC 07/12/2013 EGD INSJ TUNNELED CTR VAD W/SUBQ PORT AGE 5 YR/> 08/28/2013 RIGHT LAP CYSTECTOMY COMPLETE WITH CONDUIT 09/08/2016 LAPAROSCOPIC APPENDECTOMY 07/25/2013 LAPAROSCOPIC RADICAL PROSTATECTOMY 08/29/2016 Cysto-prostatectomy, Ileal conduit, pelvic LN dissection PROCTOSGMDSC RGD DX W/WO COLLJ SPEC BR/WA SPX 07/19/2013 REVASCULARIZATION ILIAC ARTERY ANGIOP 1ST VSL 09/12/2011 RMVL [place] CTR VAD W/SUBQ PORT/SENIOR DIRECTOR INSIGHT CTR/PRPH INSJ 09/03/2014 Removal right IJ port TRANSLUMINAL ANGIOPLASTY - ILIAC 01/15/2004 bilateral stents TRANSLUMINAL ANGIOPLASTY - ILIAC 04/14/2014 bilateral. ALLERGIES Bactrim [Sulfamethoxazole-Trimethoprim] MEDICATIONS predniSONE (DELTASONE) 10 mg tablet Take 1 tablet by mouth once daily as needed (joint swelling). acetaminophen-codeine (TYLENOL-COD #4) 300-60 mg per tablet Take 1 tablet by mouth every 4 hours as needed (30 day supply w/ 2 refills.) for up to 90 days. Do not start before May 20, 2023. gabapentin (NEURONTIN) 300 mg capsule Take 2 capsules by mouth three times daily for 360 days. atorvastatin (LIPITOR) 20 mg tablet Take 1 tablet by mouth once daily. amLODIPine (NORVASC) 10 mg tablet Take 1 tablet by mouth once daily. ibuprofen (MOTRIN) 800 mg tablet Take 1 tablet by mouth three times daily as needed for pain. lisinopril (ZESTRIL, PRINIVIL) 10 mg tablet Take 1 tablet by mouth once daily. ondansetron (ZOFRAN) 8 mg tablet Take 1 tablet by mouth every 8 hours as needed for nausea/vomiting. clopidogrel (PLAVIX) 75 mg tablet Take 1 tablet by mouth once daily. Post stents. albuterol HFA (VENTOLIN HFA) 90 mcg/actuation inhaler Inhale 2 Puffs as instructed every 4 hours as needed for Wheezing/Shortness of Breath. diphenhydrAMINE-Acetaminophen 25-500 mg tab Take 2 tablets by mouth at bedtime as needed. FAMILY HISTORY Problem Relation Age of Onset Stroke Father Ischemic Heart Disease Mother Heart Maternal Grandmother Heart Brother Social History Tobacco Use Smoking status: Every Day Packs/day: 1.00 Years: 51.00 Additional pack years: 0.00 Total pack years: 51.00 Types: Cigarettes Smokeless tobacco: Never Vaping Use Vaping Use: Never used Substance Use Topics Alcohol use: Yes Comment: occasional beer Drug use: No BP 132/72 (BP Site: Left Arm, BP Position: Sitting, BP Cuff Size: Regular Adult) Pulse 76 Temp 36.9 C (98.4 F) (Temporal) Resp 20 Wt 59.4 kg (131 lb) SpO2 94% BMI 20.21 kg/m Physical Exam Vitals reviewed. Constitutional: Appearance: He is not ill-appearing. Cardiovascular: Rate and Rhythm: Normal rate and regular rhythm. Heart sounds: Normal heart sounds. No murmur heard. Pulmonary: Effort: Pulmonary effort is normal. Breath sounds: Normal breath sounds. No wheezing, rhonchi or rales. Neurological: Mental Status: He is alert. Psychiatric: Mood and Affect: Mood normal. Behavior: Behavior normal. Health maintenance reviewed with patient: Colorectal Cancer Screening due on 07/04/2020 BP Controlled (<130/80) due on 07/12/2023 Influenza Vaccine(1) due on 06/23/2023 Shingrix Vaccine(1 of 2) due on 07/12/2023 Covid-19 Vaccine(3 - Moderna series) due on 04/20/2024 Annual PCP Team Chronic Disease Visit due on 07/12/2024 Diabetes Screening due on 07/04/2025 Lipid Screening due on 07/04/2027 DTaP,Tdap,Td Vaccine(2 - Td or Tdap) due on 04/04/2029 Abdominal Aortic Aneurysm Screening Completed Advance Directive Discussion Completed Depression Assessment Completed Hepatitis C Screening Completed Pneumococcal Vaccine: 65+ Completed Lung Cancer Screening Discontinued DATA REVIEWED: Most recent labs ASSESSMENT/PLAN: 1. Cervicalgia - ICD9: 723.1, ICD10: M54.2 (primary diagnosis) - Prescribed Morphine Equivalent Daily Dose (MEDD): 45 - Controlled substance agreement up to date. - Urine tox screen/pain panel reviewed, no aberrancies - patient doing well on current dosage Continue present regimen - Course of treatment, patient's response and adherence to the prescribed treatment plan reviewed, including non-pharmacological and non-opioid treatment modalities. Rationale for continuing opioid treatment: improved pain and function. Benefits of opioid therapy outweigh the risks. - Reviewed opioid side effects, required monitoring, controlled substance agreement, risks including accidental overdose, addiction and abuse with patient - PDMP website checked and validated. All prescriptions have been APPROPRIATELY filled. No suspicious activity was identified. 07/12/2023 by Rowena Capone APRN.[employer] EXECUTIVE - ACETAMINOPHEN 300 MG-CODEINE 60 MG TABLET 2. Need for influenza vaccination - ICD9: V04.81, ICD10: Z23 - INFLUENZA VACCINE, PRSV FREE, AGE 65+ YR, HIGH DOSE, QUADRIVALENT (FLUZONE HIGH-DOSE) Prescription instructions reviewed with patient as applicable. Potential red flag symptoms discussed with the patient. Reviewed appropriate action plan to take if red flag symptoms occur. Patient agreeable to treatment plan. Rowena Capone APRN.[employer] SAL[employer] EXECUTIVE documented in this encounter [facility] 05-29-2023 Miscellaneous Notes Patient phones requesting refills as follows: Requested Prescriptions Pending Prescriptions Disp Refills predniSONE (DELTASONE) 10 mg tablet 90 tablet 0 Sig: Take 1 tablet by mouth once daily as needed (joint swelling). GUY-04/20/23 Labs-07/04/22 NOV-07/12/23 Please review and advise. Nancy Hedrick LPN documented in this encounter [facility] 04-20-2023 Note HNO ID: [id number] Author: Arnie Fraser MD Service: ? Author Type: Physician Type: Progress Notes Filed: 04/20/2023 9:28 AM Note Text: This note was created using MAPPINGriter. Subjective Patient presents with: F/U 3 Month Adapted from CDC guidelines: Opioids can provide short term benefits for moderate to severe pain. Scientific evidence is lacking for benefits to treat chronic pain. Chronic neck pain. Before prescribing or adjusting dose 1. Assess PAIN AND FUNCTION with validated pain scale. (PEG scale where 30% improvement from baseline is clinically significant) Q1: What number from 0-10 best describes your PAIN in the past week? (0=no pain, 10=worst you can imagine) Answer: 5 Q2: What number from 0-10 best describes how, during the past week, pain has interfered with your ENJOYMENT OF LIFE? (0=not at all, 10=complete interference) Answer: 5 Q3: What number from 0-10 best describes how, during the past week, pain has interfered with your GENERAL ACTIVITY? (0=not at all, 10=complete interference) Answer: 5 Total score=15 Previous score=20 2. Consider if NON OPIOID therapies are appropriate. (NSAIDs, TCAs, SNRI, anti-convulsants, exercise or physical therapy, cognitive behavioral therapy) Yes. 3. Talk about the TREATMENT PLAN. - Annual OPIOID AGREEMENT current. Yes. - Realistic goals for pain and function discussed. Yes. Specific goals: ADLs - Benefits, side effects, and risks (e.g. Addiction, overdose) discussed. Yes. - Criteria for stopping or continuing opioid discussed. Yes. - Criteria for regular assessment every 2 to <3 months discussed. Yes. - Referral to specialist(s); 50 MED or more. N/A. - 4. Evaluate RISK of HARM or MISUSE. - Risk factors reviewed. Yes - OARRS checked. Yes - UDS ordered. No - Medication interactions checked. Yes. - Concern for OPIOID USE DISORDER, aberrant behavior. No. Review of Systems Constitutional: Negative for unexpected weight change. Respiratory: Negative for chest tightness and shortness of breath. Cardiovascular: Positive for palpitations. Negative for chest pain and leg swelling. Neurological: Negative for dizziness and headaches. ACTIVE PROBLEM LIST Tobacco Use Disorder Pure Hypercholesterolemia Peripheral Vascular Disease, Unspecified (Hcc) Cervicalgia Essential Hypertension Chronic Bronchitis (Hcc) Aaa (Abdominal Aortic Aneurysm) (Hcc) History of Colon Cancer Vitamin D Deficiency Peripheral Polyneuropathy History of Bladder Cancer Gastroesophageal Reflux Disease S/P Ileal Conduit (Hcc) Current Outpatient Medications Medication Sig acetaminophen-codeine (TYLENOL-COD #4) 300-60 mg per tablet Take 1 tablet by mouth every 4 hours as needed (30 day supply w/ 2 refills.) for up to 90 days. atorvastatin (LIPITOR) 20 mg tablet Take 1 tablet by mouth once daily. amLODIPine (NORVASC) 10 mg tablet Take 1 tablet by mouth once daily. ibuprofen (MOTRIN) 800 mg tablet Take 1 tablet by mouth three times daily as needed for pain. lisinopril (ZESTRIL, PRINIVIL) 10 mg tablet Take 1 tablet by mouth once daily. ondansetron (ZOFRAN) 8 mg tablet Take 1 tablet by mouth every 8 hours as needed for nausea/vomiting. predniSONE (DELTASONE) 10 mg tablet Take 1 tablet by mouth once daily as needed (joint swelling). gabapentin (NEURONTIN) 300 mg capsule Take 2 capsules by mouth three times daily for 360 days. clopidogrel (PLAVIX) 75 mg tablet Take 1 tablet by mouth once daily. Post stents. albuterol HFA (VENTOLIN HFA) 90 mcg/actuation inhaler Inhale 2 Puffs as instructed every 4 hours as needed for Wheezing/Shortness of Breath. diphenhydrAMINE-Acetaminophen 25-500 mg tab Take 2 tablets by mouth at bedtime as needed. No current facility-administered medications for this visit. Objective BP 133/66 (BP Site: Right Arm, BP Position: Sitting, BP Cuff Size: Large Adult) Pulse 82 Resp 12 Wt 60.3 kg (133 lb) SpO2 98% BMI 20.52 kg/m? Physical Exam Constitutional: General: He is not in acute distress. Cardiovascular: Rate and Rhythm: Normal rate and regular rhythm. Heart sounds: No murmur heard. No gallop. Pulmonary: Breath sounds: Normal breath sounds. Musculoskeletal: Cervical back: Crepitus present. Decreased range of motion. Right lower leg: No edema. Left lower leg: No edema. Neurological: Mental Status: He is alert. Gait: Gait normal. Assessment and Plan 1. Cervicalgia - ICD9: 723.1, ICD10: M54.2 (primary diagnosis) Controlled. Opioid use consistent. - ACETAMINOPHEN 300 MG-CODEINE 60 MG TABLET - GABAPENTIN 300 MG CAPSULE 2. Essential hypertension - ICD9: 401.9, ICD10: I10 - Controlled - Continue current medications - CBC 3. Pure hypercholesterolemia - ICD9: 272.0, ICD10: E78.00 Controlled. - COMP METABOLIC PANEL - LIPID PANEL BASIC 4. Peripheral vascular disease, unspecified (HCC) - ICD9: 443.9, ICD10: I73.[address] Hernandez for v (more content not included)... [facility] 01-17-2023 Note HNO ID: [id number] Author: Rowena Capone APRN.[employer] EXECUTIVE Service: ? Author Type: Nurse Practitioner Type: Progress Notes Filed: 01/17/2023 8:38 AM Note Text: CC: Patient presents with: F/U 3 Month: Requesting 2 new order for parking placards HPI Aleks Leonman is a 72 year old male who presents today for above. Patient is doing well overall. Lost a few pounds recently due to illness. Weight is stable now and will probably start gaining back now that he is eating better. Taking Tylenol with codeine for chronic pain. Continues to be effective at keeping pain under control. Denies side effects. Mood and sleep are stable. BP has been well controlled, he does not check at home. Taking all medications as prescribed without side effects. Still smoking about 1 PPD, no interest in quitting. Chronic cough, no worse than usual. REVIEW OF SYSTEMS GENERAL: Negative for malaise, fever, chills, night sweats RESPIRATORY: Negative for hemoptysis, wheezing and shortness of breath CARDIOVASCULAR: Negative for chest pain, leg swelling and palpitations GI: Negative for abdominal discomfort, blood in stools or black stools, change in bowel habit, nausea, vomiting : ileostomy in place. Negative for hematuria HEMATOLOGY/LYMPHOLOGY Negative for prolonged bleeding, bruising easily, and swollen nodes. PAST MEDICAL HISTORY Diagnosis Date AAA (abdominal aortic aneurysm) 05/06/2013 Bladder cancer (HCC) 08/29/2016 Bladder tumor BPH without urinary obstruction 08/04/2015 Cervicalgia 11/03/2008 CHRONIC AIRWAY OBSTRUCTION NEC 01/12/2009 Colon cancer (HCC) 07/19/2013 s/p laparoscopic with conversion to open low anterior resection of the colon with abscess and appendectomy and completed chemo 2013 HYPERTENSION NOS 12/01/2008 Hypertrophy of prostate without urinary obstruction and other lower urinary tract symptoms (LUTS) 12/01/2008 Malignant neoplasm of overlapping sites of bladder (HCC) Pain in limb 06/14/2005 PERIPH VASCULAR DIS NOS 06/21/2005 s/p bilateral common iliac artery [place] stenting. s/p angioplasty of instent PAD stent 2013 PURE HYPERCHOLESTEROLEM 06/21/2005 Rheumatoid arthritis(714.0) 03/04/2010 hands Tobacco use disorder 06/14/2005 PAST SURGICAL HISTORY Procedure Laterality Date ANGIOPLASTY FEMORAL/POP Bilateral 07/03/2019 multiple stents (4) ANGIOPLASTY-ILIAC Bilateral 06/21/2021 R exteranl iliac angioplasty/stent. L common iliac, external iliac angioplasty COLECTOMY PRTL W/COLOPROCTOSTOMY 07/25/2013 COLONOSCOPY 07/04/2017 recheck in 3 years, Dr. Hernandez COLONOSCOPY FLX DX W/COLLJ SPEC WHEN PFRMD 07/12/2013 Colonoscopy COLONOSCOPY FLX DX W/COLLJ SPEC WHEN PFRMD 07/11/2014 repeat in 3 years ESOPHAGOGASTRODUODENOSCOPY TRANSORAL DIAGNOSTIC 07/12/2013 EGD INSJ TUNNELED CTR VAD W/SUBQ PORT AGE 5 YR/> 08/28/2013 RIGHT LAP CYSTECTOMY COMPLETE WITH CONDUIT 09/08/2016 LAPAROSCOPIC APPENDECTOMY 07/25/2013 LAPAROSCOPIC RADICAL PROSTATECTOMY 08/29/2016 Cysto-prostatectomy, Ileal conduit, pelvic LN dissection PROCTOSGMDSC RGD DX W/WO COLLJ SPEC BR/WA SPX 07/19/2013 REVASCULARIZATION ILIAC ARTERY ANGIOP 1ST VSL 09/12/2011 RMVL [facility] CTR VAD W/SUBQ PORT/SENIOR DIRECTOR INSIGHT CTR/PRPH INSJ 09/03/2014 Removal right IJ port TRANSLUMINAL ANGIOPLASTY - ILIAC 01/15/2004 bilateral stents TRANSLUMINAL ANGIOPLASTY - ILIAC 04/14/2014 bilateral. ALLERGIES Bactrim [Sulfamethoxazole-Trimethoprim] MEDICATIONS atorvastatin (LIPITOR) 20 mg tablet Take 1 tablet by mouth once daily. amLODIPine (NORVASC) 10 mg tablet Take 1 tablet by mouth once daily. ibuprofen (MOTRIN) 800 mg tablet Take 1 tablet by mouth three times daily as needed for pain. lisinopril (ZESTRIL, PRINIVIL) 10 mg tablet Take 1 tablet by mouth once daily. ondansetron (ZOFRAN) 8 mg tablet Take 1 tablet by mouth every 8 hours as needed for nausea/vomiting. predniSONE (DELTASONE) 10 mg tablet Take 1 tablet by mouth once daily as needed (joint swelling). acetaminophen-codeine (TYLENOL-COD #4) 300-60 mg per tablet Take 1 tablet by mouth every 4 hours as needed (30 day supply w/ 2 refills.) for up to 90 days. gabapentin (NEURONTIN) 300 mg capsule Take 2 capsules by mouth three times daily for 360 days. clopidogrel (PLAVIX) 75 mg tablet Take 1 tablet by mouth once daily. Post stents. albuterol HFA (VENTOLIN HFA) 90 mcg/actuation inhaler Inhale 2 Puffs as instructed every 4 hours as needed for Wheezing/Shortness of Breath. diphenhydrAMINE-Acetaminophen 25-500 mg tab Take 2 tablets by mouth at bedtime as needed. FAMILY HISTORY Problem Relation Age of Onset Stroke Father Ischemic Heart Disease Mother Heart Maternal Grandmother Heart Brother Social History Tobacco Use Smoking status: Every Day Packs/day: 1.00 Years: 51.00 Pack years: 51.00 Types: Cigarettes Smokeless tobacco: Never Vaping Use Vaping Use: Never used Substance Use Topics Alcohol use: Yes Comment: occasional beer Drug use: No PHYSICAL EXAM (more content not included)... [facility] 01-17-2023 History of Present illness Narrative CC: Patient presents with: F/U 3 Month: Requesting 2 new order for parking placards HPI Aleks Guerrier is a 72 year old male who presents today for above. Patient is doing well overall. Lost a few pounds recently due to illness. Weight is stable now and will probably start gaining back now that he is eating better. Taking Tylenol with codeine for chronic pain. Continues to be effective at keeping pain under control. Denies side effects. Mood and sleep are stable. BP has been well controlled, he does not check at home. Taking all medications as prescribed without side effects. Still smoking about 1 PPD, no interest in quitting. Chronic cough, no worse than usual. REVIEW OF SYSTEMS GENERAL: Negative for malaise, fever, chills, night sweats RESPIRATORY: Negative for hemoptysis, wheezing and shortness of breath CARDIOVASCULAR: Negative for chest pain, leg swelling and palpitations GI: Negative for abdominal discomfort, blood in stools or black stools, change in bowel habit, nausea, vomiting : ileostomy in place. Negative for hematuria HEMATOLOGY/LYMPHOLOGY Negative for prolonged bleeding, bruising easily, and swollen nodes. PAST MEDICAL HISTORY Diagnosis Date AAA (abdominal aortic aneurysm) 05/06/2013 Bladder cancer (HCC) 08/29/2016 Bladder tumor BPH without urinary obstruction 08/04/2015 Cervicalgia 11/03/2008 CHRONIC AIRWAY OBSTRUCTION NEC 01/12/2009 Colon cancer (HCC) 07/19/2013 s/p laparoscopic with conversion to open low anterior resection of the colon with abscess and appendectomy and completed chemo 2013 HYPERTENSION NOS 12/01/2008 Hypertrophy of prostate without urinary obstruction and other lower urinary tract symptoms (LUTS) 12/01/2008 Malignant neoplasm of overlapping sites of bladder (HCC) Pain in limb 06/14/2005 PERIPH VASCULAR DIS NOS 06/21/2005 s/p bilateral common iliac artery [place] stenting. s/p angioplasty of instent PAD stent 2013 PURE HYPERCHOLESTEROLEM 06/21/2005 Rheumatoid arthritis(714.0) 03/04/2010 hands Tobacco use disorder 06/14/2005 PAST SURGICAL HISTORY Procedure Laterality Date ANGIOPLASTY FEMORAL/POP Bilateral 07/03/2019 multiple stents (4) ANGIOPLASTY-ILIAC Bilateral 06/21/2021 R exteranl iliac angioplasty/stent. L common iliac, external iliac angioplasty COLECTOMY PRTL W/COLOPROCTOSTOMY 07/25/2013 COLONOSCOPY 07/04/2017 recheck in 3 years, Dr. Hernandez COLONOSCOPY FLX DX W/COLLJ SPEC WHEN PFRMD 07/12/2013 Colonoscopy COLONOSCOPY FLX DX W/COLLJ SPEC WHEN PFRMD 07/11/2014 repeat in 3 years ESOPHAGOGASTRODUODENOSCOPY TRANSORAL DIAGNOSTIC 07/12/2013 EGD INSJ TUNNELED CTR VAD W/SUBQ PORT AGE 5 YR/> 08/28/2013 RIGHT LAP CYSTECTOMY COMPLETE WITH CONDUIT 09/08/2016 LAPAROSCOPIC APPENDECTOMY 07/25/2013 LAPAROSCOPIC RADICAL PROSTATECTOMY 08/29/2016 Cysto-prostatectomy, Ileal conduit, pelvic LN dissection PROCTOSGMDSC RGD DX W/WO COLLJ SPEC BR/WA SPX 07/19/2013 REVASCULARIZATION ILIAC ARTERY ANGIOP 1ST VSL 09/12/2011 RMVL [place] CTR VAD W/SUBQ PORT/SENIOR DIRECTOR INSIGHT CTR/PRPH INSJ 09/03/2014 Removal right IJ port TRANSLUMINAL ANGIOPLASTY - ILIAC 01/15/2004 bilateral stents TRANSLUMINAL ANGIOPLASTY - ILIAC 04/14/2014 bilateral. ALLERGIES Bactrim [Sulfamethoxazole-Trimethoprim] MEDICATIONS atorvastatin (LIPITOR) 20 mg tablet Take 1 tablet by mouth once daily. amLODIPine (NORVASC) 10 mg tablet Take 1 tablet by mouth once daily. ibuprofen (MOTRIN) 800 mg tablet Take 1 tablet by mouth three times daily as needed for pain. lisinopril (ZESTRIL, PRINIVIL) 10 mg tablet Take 1 tablet by mouth once daily. ondansetron (ZOFRAN) 8 mg tablet Take 1 tablet by mouth every 8 hours as needed for nausea/vomiting. predniSONE (DELTASONE) 10 mg tablet Take 1 tablet by mouth once daily as needed (joint swelling). acetaminophen-codeine (TYLENOL-COD #4) 300-60 mg per tablet Take 1 tablet by mouth every 4 hours as needed (30 day supply w/ 2 refills.) for up to 90 days. gabapentin (NEURONTIN) 300 mg capsule Take 2 capsules by mouth three times daily for 360 days. clopidogrel (PLAVIX) 75 mg tablet Take 1 tablet by mouth once daily. Post stents. albuterol HFA (VENTOLIN HFA) 90 mcg/actuation inhaler Inhale 2 Puffs as instructed every 4 hours as needed for Wheezing/Shortness of Breath. diphenhydrAMINE-Acetaminophen 25-500 mg tab Take 2 tablets by mouth at bedtime as needed. FAMILY HISTORY Problem Relation Age of Onset Stroke Father Ischemic Heart Disease Mother Heart Maternal Grandmother Heart Brother Social History Tobacco Use Smoking status: Every Day Packs/day: 1.00 Years: 51.00 Pack years: 51.00 Types: Cigarettes Smokeless tobacco: Never Vaping Use Vaping Use: Never used Substance Use Topics Alcohol use: Yes Comment: occasional beer Drug use: No PHYSICAL EXAM BP 116/58 Pulse 100 Resp 14 Wt 58.1 kg (128 lb) BMI 19.75 kg/m General Appearance: well appearing, in no acute distress, alert Skin: Skin color, texture, turgor normal for age; Eyes: conjunctiva pink and moist, no icterus, sclera white, non-injected Neck: Thyroid normal size and symmetric without palpable nodules, Neck supple, No adenopathy Lymph nodes: No supraclavicular lymphadenopathy Lungs: Lungs clear to auscultation. No wheezing, rhonchi, rales. Heart: RRR without murmur, gallop, or rubs. No ectopy Ext: no edema in LE bilaterally, good distal pulses Health maintenance reviewed with patient: LUNG CANCER SCREENING due on 08/24/2017 COLORECTAL CANCER SCREENING due on 07/04/2020 ADVANCE DIRECTIVE DISCUSSION due on 10/23/2022 DEPRESSION ASSESSMENT due on 10/23/2022 COVID-19 VACCINE(3 - Booster for Moderna series) due on 04/15/2023 SHINGRIX VACCINE(1 of 2) due on 07/12/2023 ANNUAL PCP TEAM CHRONIC DISEASE VISIT due on 10/10/2023 BP CONTROLLED (<130/80) due on 10/10/2023 DIABETES SCREEN due on 07/04/2025 LIPID SCREEN due on 07/04/2027 DTAP,TDAP,TD(2 - Td or Tdap) due on 04/04/2029 ABDOMINAL AORTIC ANEURYSM SCREENING Completed INFLUENZA Completed HEPATITIS C SCREENING Completed PNEUMOCOCCAL: 65+ Completed DATA REVIEWED: Most recent labs Depression Screening 04/01/2021 04/15/2022 10/10/2022 01/17/2023 PHQ-2 Score 0 0 0 0 PHQ-9 Score 0 - - - Depression screening tool completed and reviewed. Based on score and interview, patient is not at risk for depression. Screening tool discussed with patient, and I recommended no further intervention at this time. ASSESSMENT/PLAN: 1. Essential hypertension - ICD9: 401.9, ICD10: I10 (primary diagnosis) - good control - Continue current medication(s) - Recommended regular aerobic exercise. - Recommend home blood pressure monitoring, to bring results in on next visit - Goal of BP <130/80 2. Cervicalgia - ICD9: 723.1, ICD10: M54.2 - Prescribed Morphine Equivalent Daily Dose (MEDD): 45 - Controlled substance agreement up to date. - Urine tox screen/pain panel reviewed, no aberrancies. Due for random tox screen Continue present regimen - Course of treatment, patient's response and adherence to the prescribed treatment plan reviewed, including non-pharmacological and non-opioid treatment modalities. Rationale for continuing opioid treatment: improved pain and function. Benefits of opioid therapy outweigh the risks. - Reviewed opioid side effects, required monitoring, controlled substance agreement, risks including accidental overdose, addiction and abuse with patient - PDMP website checked and validated. All prescriptions have been APPROPRIATELY filled. No suspicious activity was identified. 01/17/2023 by Rowena Capone APRN.[employer]ECUTIVE - ACETAMINOPHEN 300 MG-CODEINE 60 MG TABLET 3. Tobacco use disorder - ICD9: 305.1, ICD10: F17.200 - Cessation encouraged. - Physiologic and physical aspects of tobacco addiction as well as strategies for quitting were discussed. - Counseling was given focusing on the harmful effects of this addiction especially given the patient's medical condition(s) which will be worsened because of the chemicals in tobacco. - no desire to quit 4. S/P ileal conduit (HCC) - ICD9: V44.6, ICD10: Z93.6 intact 5. Peripheral vascular disease, unspecified (HCC) - ICD9: 443.9, ICD10: I73.9 Stable 6. Encounter for drug screening - ICD9: V72.85, ICD10: Z02.83 - TOX SCREEN ROUT UR 7. High risk medications (not anticoagulants) long-term use - ICD9: V58.69, ICD10: Z79.899 - TOX SCREEN ROUT UR Prescription instructions reviewed with patient as applicable. Potential red flag symptoms discussed with the patient. Reviewed appropriate action plan to take if red flag symptoms occur. Patient agreeable to treatment plan. Rowena Capone APRN.CNP documented in this encounter [facility] 11-10-2022 Miscellaneous Notes Patient has been identified by name and date of : Yes, Provider Dr Fraser Date 11/10/22 Time 4:59 pm Patient phones for refill(s): Requested Prescriptions Pending Prescriptions Disp Refills atorvastatin (LIPITOR) 20 mg tablet 90 tablet 1 Sig: Take 1 tablet by mouth once daily. Date of last office visit in primary care: 10/10/22 next apt 01/17/23 Last 2 Encounter Wt Readings: Date: Wt: 10/10/2022 59.9 kg (132 lb) 07/12/2022 60.8 kg (134 lb) Previous labs/tests for medication: Cholesterol: HDL Cholesterol (mg/dL) Date Value 07/04/2022 41 03/23/2021 41 LDL Cholesterol (mg/dL) Date Value 07/04/2022 68 03/23/2021 59 ALT (U/L) Date Value 07/04/2022 7 03/23/2021 13 Non HDL Cholesterol (mg/dL) Date Value 07/04/2022 92 03/23/2021 78 Thank you. Becky Cruz LPN documented in this encounter [facility] 10-10-2022 Instructions Rowena Capone APRN.CNP - 10/10/2022 9:14 AM EST Screening schedule The following prevention plan is recommended: LUNG CANCER SCREENING due on 08/24/2017 COLORECTAL CANCER SCREENING due on 07/04/2020 WHAT YOU CAN DO TO PREVENT FALLS Many falls can be prevented. By making some changes, you can lower your chances of falling. Four things YOU can do to prevent falls for you* and your caregiver 1. Begin a regular exercise program Exercise is one of the most important ways to lower your chances of falling. It makes you stronger and helps you feel better. Exercises that improve balance and coordination (like Dariel Chi) are the most helpful. Lack of exercise leads to weakness and increases your chances of falling. Ask your doctor or health care provider about the best type of exercise program for you. 2. Have your health care provider review your medicines Have your doctor or pharmacist review all the medicines you take, even [id number] medicines. As you get older, the way medicines work in your body can change. Some medicines, or combinations of medicines, can make you sleepy or dizzy and can cause you to fall. 3. Have your vision checked Have your eyes checked by an eye doctor at least once a year. You may be wearing the wrong glasses or have a condition like glaucoma or cataracts that limits your vision. Poor vision can increase your chances of falling. 4. Make your home safer About half of all falls happen at home. To make your home safer: Remove things you can trip over (like papers, books, clothes, and shoes) from stairs and places where you walk. Remove small throw rugs or use double-sided tape to keep the rugs from slipping. Keep items you use often in cabinets you can reach easily without using a step stool. Have grab bars put in next to your toilet and in the tub or shower. Use non-slip mats in the bathtub and on shower floors. Improve the lighting in your home. As you get older, you need brighter lights to see well. Hang light-weight curtains or shades to reduce glare. Have handrails and lights put in on all staircases. Wear shoes both inside and outside the house. Avoid going barefoot or wearing slippers. For more information, contact: Centers for Disease Control and Prevention www.cdc.gov/injury * This information may not apply if you have certain medical conditions. documented in this encounter [facility] 10-10-2022 History of Present illness Narrative Aleks Guerrier is a 72 year old male here for a Medicare Subsequent Annual Wellness Visit Health Risk Assessment In general, health is: Good Concerns with balance:Not at all Concerns with teeth or dentures:Not at all Concerns with sexual function:Not at all Theodosia anxious, stressed, angry, irritable, lonely, isolated, or had thoughts of hurting themself: Not at all Has little interest or pleasure in doing things: Not at all Bothered by feeling down, depressed, or hopeless: Not at all Needs help with grocery shopping, cooking, housework, bathing, grooming, dressing, eating, sitting or standing, walking, using the toilet, handling finances, taking medications, using the telephone, or driving: No Following safety precautions in the home environment and vehicle: removed throw rugs from floors, installed grab bars in the bathroom, handrails in stairwells, having adequate lighting, wearing seatbelt at all times?: Yes except no grab bars in bathroom Smokes cigarettes, vapes, or chew tobacco: Yes, but I'm not ready to quit Eats healthy foods including fruits, vegetables, whole grains, and fiber-rich foods: More than half the days Number of days per week engages in exercise: walks about 3 days a week on the treadmill for about 1/4 a mile each time Average alcohol consumption: Monthly or less Current Providers Specialists: I have reviewed specialist-related care of the patient in the medical record. Current care team: Patient Care Team: Arnie Fraser MD as PCP - General Outside specialists seen: [facility] Medical/Family history review Reviewed and updated problem list, medical/surgical/family/social history, medications, and allergies. Opioid use review Patient is currently using opioids. Prescribed acetaminophen with codeine (last 90 days) Does patient have risk factors for opioid abuse? No Pain overview Current pain concerns and treatment plan reviewed. Patient stable on current treatment plan. Depression screening Depression Screening PHQ-2 Score PHQ-9 Score 10/10/2022 0 - Depression screening tool completed and reviewed. Based on score and interview, patient is not at risk for depression. Screening tool discussed with patient, and I recommended no further intervention at this time. Cognitive screening Mini Cog Score: 5 Cognitive screening reviewed and no further action needed (score 3-5) Functional Observation Was the patient's timed Up & Go test unsteady or ? 12 seconds? No Advance Care Planning End of Life planning discussed, including patient's advanced directive wishes: Yes Measurements BP 113/67 Pulse 103 Resp 18 Ht 5' 7.5 (1.72m) Wt 132 lb (59.9kg) BMI 20.36 kg/(m^2). Visual acuity (required for Welcome to Medicare): follows with optometry/ophthalmology Hearing Evaluation: within normal limits ASSESSMENT/PLAN: 1. Medicare annual wellness visit, subsequent - ICD9: V70.0, ICD10: Z00.00 (primary diagnosis) The following prevention plan was discussed during the office visit and provided to the patient: - fall risk reduction - Counseled on healthy diet and regular exercise - Colorectal cancer screening recommended - screening declined - Lung cancer screening recommended - Smoking cessation encouraged; discussed risks to health and quitting strategies. Patient is not ready to quit - Depression screening tool completed and reviewed with patient. Based on score and interview, patient is not at risk for depression and recommended no further intervention at this time. - follow-up for medicare annual exam in one year 2. Cervicalgia - ICD9: 723.1, ICD10: M54.2 - Prescribed Morphine Equivalent Daily Dose (MEDD): 45 - Controlled substance agreement updated today - Urine tox screen/pain panel reviewed, no aberrancies Continue present regimen - Course of treatment, patient's response and adherence to the prescribed treatment plan reviewed, including non-pharmacological and non-opioid treatment modalities. Rationale for continuing opioid treatment: improved pain and function. Benefits of opioid therapy outweigh the risks. - Reviewed opioid side effects, required monitoring, controlled substance agreement, risks including accidental overdose, addiction and abuse with patient - PDMP website checked and validated. All prescriptions have been APPROPRIATELY filled. No suspicious activity was identified. 10/10/2022 by SEBASTIAN Finney APRN.CNP documented in this encounter [facility] 10-05-2022 Miscellaneous Notes PDMP website checked and validated. All prescriptions have been APPROPRIATELY filled. No suspicious activity was identified. 10/05/2022 by Rowena Capone APRN.CNP Patient has been identified by name and date of : Yes Patient phones for refill(s): Requested Prescriptions Pending Prescriptions Disp Refills acetaminophen-codeine (TYLENOL-COD #4) 300-60 mg per tablet 150 tablet 2 Sig: Take 1 tablet by mouth every 4 hours as needed (30 day supply w/ 2 refills.) for up to 90 days. Date of last office visit in primary care: 07/12/2022 Wellness: 10/10/2022 Last 2 Encounter Wt Readings: Date: Wt: 07/12/2022 60.8 kg (134 lb) 04/15/2022 60.3 kg (133 lb) Previous labs/tests for medication: Not applicable Please advise. Thank you. Laquita Merida LPN documented in this encounter [facility] 07-12-2022 Instructions Rowena Capone APRN.CNP - 07/12/2022 9:50 AM EDT Recombinant shingles vaccine (Shingrix) is recommended; 2 doses 2-6 months apart. Please read information, check with your insurance, and schedule vaccination at your local pharmacy. A prescription is not required. If you are certain you have coverage to receive this vaccine in the office, we can schedule this for you. documented in this encounter [facility] 07-12-2022 History of Present illness Narrative CC: Patient presents with: F/U 3 Month Immunizations: Flu vaccination HPI Aleks Guerrier is a 72 year old male who presents today for chronic pain follow-up. PAIN ASSESSMENT DOCUMENTATION TOOL (PADT TM) Analgesia: 0 is no pain. 10 is as bad as it can be. 1. What was your pain level on average during the past week? 3 2. What was your pain level at its worst during the past week? 6 3. What percentage of your pain has been relieved during the past week? 80%. 4. Is the amount of pain relief you are now obtaining from your current pain reliever(s) enough to make a real difference in your life? yes Activities of Daily Living since the patient's last assessment 1. Physical functioning. same 2. Family relationships. same 3. Social relationships. same 4. Mood. same 5. Sleep patterns. same 6. Overall functioning. same Adverse Events 1. Is patient experiencing any side effects from current pain reliever? no a) Nausea None b) Vomiting None c) Constipation None d) Itching None e) Mental cloudiness None f) Sweating None g) Fatigue None h) Drowsiness None REVIEW OF SYSTEMS See HPI PAST MEDICAL HISTORY Diagnosis Date AAA (abdominal aortic aneurysm) (HCC) 05/06/2013 Bladder cancer (HCC) 08/29/2016 Bladder tumor BPH without urinary obstruction 08/04/2015 Cervicalgia 11/03/2008 CHRONIC AIRWAY OBSTRUCTION NEC 01/12/2009 Colon cancer (HCC) 07/19/2013 s/p laparoscopic with conversion to open low anterior resection of the colon with abscess and appendectomy and completed chemo 2013 HYPERTENSION NOS 12/01/2008 Hypertrophy of prostate without urinary obstruction and other lower urinary tract symptoms (LUTS) 12/01/2008 Malignant neoplasm of overlapping sites of bladder (HCC) Pain in limb 06/14/2005 PERIPH VASCULAR DIS NOS 06/21/2005 s/p bilateral common iliac artery [place] stenting. s/p angioplasty of instent PAD stent 2013 PURE HYPERCHOLESTEROLEM 06/21/2005 Rheumatoid arthritis(714.0) 03/04/2010 hands Tobacco use disorder 06/14/2005 PAST SURGICAL HISTORY Procedure Laterality Date ANGIOPLASTY FEMORAL/POP Bilateral 07/03/2019 multiple stents (4) ANGIOPLASTY-ILIAC Bilateral 06/21/2021 R exteranl iliac angioplasty/stent. L common iliac, external iliac angioplasty COLECTOMY PRTL W/COLOPROCTOSTOMY 07/25/2013 COLONOSCOPY 07/04/2017 recheck in 3 years, Dr. Hernandez COLONOSCOPY FLX DX W/COLLJ SPEC WHEN PFRMD 07/12/2013 Colonoscopy COLONOSCOPY FLX DX W/COLLJ SPEC WHEN PFRMD 07/11/2014 repeat in 3 years ESOPHAGOGASTRODUODENOSCOPY TRANSORAL DIAGNOSTIC 07/12/2013 EGD INSJ TUNNELED CTR VAD W/SUBQ PORT AGE 5 YR/> 08/28/2013 RIGHT LAP CYSTECTOMY COMPLETE WITH CONDUIT 09/08/2016 LAPAROSCOPIC APPENDECTOMY 07/25/2013 LAPAROSCOPIC RADICAL PROSTATECTOMY 08/29/2016 Cysto-prostatectomy, Ileal conduit, pelvic LN dissection PROCTOSGMDSC RGD DX W/WO COLLJ SPEC BR/WA SPX 07/19/2013 REVASCULARIZATION ILIAC ARTERY ANGIOP 1ST VSL 09/12/2011 RMVL [facility] CTR VAD W/SUBQ PORT/SENIOR DIRECTOR INSIGHT CTR/PRPH INSJ 09/03/2014 Removal right IJ port TRANSLUMINAL ANGIOPLASTY - ILIAC 01/15/2004 bilateral stents TRANSLUMINAL ANGIOPLASTY - ILIAC 04/14/2014 bilateral. ALLERGIES Bactrim [Sulfamethoxazole-Trimethoprim] MEDICATIONS acetaminophen-codeine (TYLENOL-COD #4) 300-60 mg per tablet Take 1 tablet by mouth every 4 hours as needed (30 day supply w/ 2 refills.) for up to 90 days. ondansetron (ZOFRAN) 8 mg tablet Take 1 tablet by mouth every 8 hours as needed for nausea/vomiting. gabapentin (NEURONTIN) 300 mg capsule Take 2 capsules by mouth three times daily for 360 days. predniSONE (DELTASONE) 10 mg tablet Take 1 tablet by mouth once daily as needed (joint swelling). atorvastatin (LIPITOR) 20 mg tablet Take 1 tablet by mouth once daily. amLODIPine (NORVASC) 10 mg tablet Take 1 tablet by mouth once daily. ibuprofen (MOTRIN) 800 mg tablet Take 1 tablet by mouth three times daily as needed for pain. lisinopril (ZESTRIL, PRINIVIL) 10 mg tablet Take 1 tablet by mouth once daily. clopidogrel (PLAVIX) 75 mg tablet Take 1 tablet by mouth once daily. Post stents. albuterol HFA (VENTOLIN HFA) 90 mcg/actuation inhaler Inhale 2 Puffs as instructed every 4 hours as needed for Wheezing/Shortness of Breath. diphenhydrAMINE-Acetaminophen 25-500 mg tab Take 2 tablets by mouth at bedtime as needed. FAMILY HISTORY Problem Relation Age of Onset Stroke Father Ischemic Heart Disease Mother Heart Maternal Grandmother Heart Brother Social History Tobacco Use Smoking status: Every Day Packs/day: 1.00 Years: 51.00 Pack years: 51.00 Types: Cigarettes Smokeless tobacco: Never Vaping Use Vaping Use: Never used Substance Use Topics Alcohol use: Yes Comment: occasional beer Drug use: No PHYSICAL EXAM BP 116/68 (BP Site: Left Arm, BP Position: Sitting, BP Cuff Size: Regular Adult) Pulse 92 Temp 37 C (98.6 F) (Temporal) Resp 12 Wt 60.8 kg (134 lb) BMI 20.37 kg/m General Appearance: well appearing, in no acute distress, alert Pysch: mood and affect broad and appropriate Last Pain Panel/urine toxicology screen: Urine Panel: No results found for: UQCANN, UQBNZL, ESO7KYI, UQAMPH, UQMAMP, UQBUPRE, UQNORBUP, UQMTHD, UQEDDP, UQTRAM, UQDTRM, UQFNTL, UQNFTL, UQCODE, UQMORP, UQDCDN, UQHCOD, UQOXYC, UQHMOR, UQOXYM, UQCREA, UQPH, UQSPGR, UQOXID, UQSPQ Phencyclidine Urine Date Value Ref Range Status 01/07/2022 Negative Negative Final Comment: Cutoff threshold at 25 ng/mL. Cocaine Urine Date Value Ref Range Status 01/07/2022 Negative Negative Final Comment: Cutoff threshold at 300 ng/mL. Amphetamines Urine Date Value Ref Range Status 01/07/2022 Negative Negative Final Comment: Cutoff threshold at 1000 ng/mL. Opiates Urine Date Value Ref Range Status 01/07/2022 Preliminary positive (A) Negative Final Comment: Cutoff threshold at 300 ng/mL. ASSESSMENT/PLAN: 1. Cervicalgia - ICD9: 723.1, ICD10: M54.2 (primary diagnosis) - Prescribed Morphine Equivalent Daily Dose (MEDD): Yes < 50 MEDD - Controlled substance agreement up to date. - Urine tox screen/pain panel reviewed, no aberrancies Continue present regimen - Course of treatment, patient's response and adherence to the prescribed treatment plan reviewed, including non-pharmacological and non-opioid treatment modalities. Rationale for continuing opioid treatment: improved pain and function.Benefits of opioid therapy outweigh the risks. - Reviewed opioid side effects, required monitoring, controlled substance agreement, risks including accidental overdose, addiction and abuse with patient 2. Encounter for drug screening - ICD9: V72.85, ICD10: Z02.83 - TOX SCREEN ROUT UR 3. Encounter for long-term current use of high risk medication - ICD9: V58.69, ICD10: Z79.899 - TOX SCREEN ROUT UR 4. Need for influenza vaccination - ICD9: V04.81, ICD10: Z23 - INFLUENZA SEASONAL QUADRIVALENT HIGH DOSE AGE 65+ Prescription instructions reviewed with patient as applicable. Potential red flag symptoms discussed with the patient. Reviewed appropriate action plan to take if red flag symptoms occur. Patient agreeable to treatment plan. During this patient visit I have spent approximately 20 minutes in counseling regarding medications and coordinating care. Rowena Capone APRN.CNP documented in this encounter [facility] 07-04-2022 Miscellaneous Notes Pt did not fill refill in time, and prescription was void. Pt reports he does not have many left. Patient has been identified by name and date of : Yes Patient phones for refill(s): Requested Prescriptions Pending Prescriptions Disp Refills acetaminophen-codeine (TYLENOL-COD #4) 300-60 mg per tablet 150 tablet 2 Sig: Take 1 tablet by mouth every 4 hours as needed (30 day supply w/ 2 refills.) for up to 90 days. Date of last office visit in primary care: 04/15/22 Future visit: 07/12/22 Last 2 Encounter Wt Readings: Date: Wt: 04/15/2022 60.3 kg (133 lb) 10/01/2021 61.7 kg (136 lb) Previous labs/tests for medication: Blood Pressure: BUN (mg/dL) Date Value 03/23/2021 16 Sodium (mmol/L) Date Value 03/23/2021 140 Last 1 Encounter BP Readings: Date: BP: 04/15/2022 132/68 Liver Function: ALT (U/L) Date Value 03/23/2021 13 AST (U/L) Date Value 03/23/2021 19 Please advise. Thank you. Mala Cortes RN documented in this encounter [facility] 05-10-2022 Miscellaneous Notes PDMP website checked and validated. All prescriptions have been APPROPRIATELY filled. No suspicious activity was identified. 05/10/2022 by Rowena Capone APRN.SHANAE Patient has been identified by name and date of : Yes Patient phones for refill(s): Pending Prescriptions Disp Refills GABAPENTIN 300 MG CAPSULE 540 capsule 3 Sig: Take 2 capsules by mouth three times daily for 360 days. RADHA: No PREDNISONE 10 MG TABLET 90 tablet 0 Sig: Take 1 tablet by mouth once daily as needed (joint swelling). RADHA: No ACETAMINOPHEN 300 MG-CODEINE 60 MG TABLET 150 tablet 2 Sig: Take 1 tablet by mouth every 4 hours as needed (30 day supply w/ 2 refills.) for up to 90 days. ROSALIA Class: C-III RADHA: No Date of last office visit in primary care: 04/15/2022 Appt: 07/12/2022 Last 2 Encounter Wt Readings: Date: Wt: 04/15/2022 60.3 kg (133 lb) 10/01/2021 61.7 kg (136 lb) Previous labs/tests for medication: Not applicable Please advise. Thank you. Laquita Merida LPN documented in this encounter [facility] 05-10-2022 Miscellaneous Notes Patient has been identified by name and date of : Yes Patient phones for refill(s): Pending Prescriptions Disp Refills ONDANSETRON HCL 8 MG TABLET 90 tablet 0 Sig: Take 1 tablet by mouth every 8 hours as needed for nausea/vomiting. RADHA: No Date of last office visit in primary care: 04/15/2022 Appt: 07/12/2022 Last 2 Encounter Wt Readings: Date: Wt: 04/15/2022 60.3 kg (133 lb) 10/01/2021 61.7 kg (136 lb) Previous labs/tests for medication: Not applicable Please advise. Thank you. Laquita Merida LPN documented in this encounter [facility] 05-06-2022 History of Present illness Narrative POPULATION HEALTH NAVIGATION OUTREACH Action/FYI unable to lm for pt to call to schedule colonoscopy, Nanohart message sent for pt to call to schedule colonoscopy added notes to upcoming ov Pt identified by name and : NO Outreach Outcome/Action Unable to reach patient: Phone number not valid / voicemail full MyChart message sent Did you use a PCP flex slot to schedule this appointment? N/A Reason for Outreach Care Gap or Scheduling/Wellness visits Payer: Payor: [employer] MEDICARE / Plan: [employer] / Product Type: HMO / Care Gap Reviewed:: Colorectal Cancer Screening Reminder: Reminder note to check Health Maintenance for items below Health Maintenance items due: SHINGRIX VACCINE(1 of 2) Never done LUNG CANCER SCREENING due on 08/24/2017 COLORECTAL CANCER SCREENING due on 07/04/2020 BP CONTROLLED (<130/80) due on 05/12/2021 Message Sent to Practice: No Navigation Signature: Noreen Maria MA May 06, 2022 2:01 PM documented in this encounter [facility] 04-15-2022 Instructions Rowena Capone APRN.CNP - 04/15/2022 9:27 AM EDT GET COLONOSCOPY SOON WITH DR. HERNANDEZ documented in this encounter [facility] 04-15-2022 History of Present illness Narrative CC: Patient presents with: F/U 3 Month HPI Aleks Guerrier is a 72 year old male who presents today for above. PAIN ASSESSMENT DOCUMENTATION TOOL (PADT TM) Patient is taking Tylenol with codeine as needed for chronic neck pain Analgesia: 0 is no pain. 10 is as bad as it can be. 1. What was your pain level on average during the past week? 3 2. What was your pain level at its worst during the past week? 6 3. What percentage of your pain has been relieved during the past week? 80%. 4. Is the amount of pain relief you are now obtaining from your current pain reliever(s) enough to make a real difference in your life? yes Activities of Daily Living since the patient's last assessment 1. Physical functioning. same 2. Family relationships. same 3. Social relationships. same 4. Mood. same 5. Sleep patterns. same 6. Overall functioning. same Adverse Events 1. Is patient experiencing any side effects from current pain reliever? no a) Nausea None b) Vomiting None c) Constipation None d) Itching None e) Mental cloudiness None f) Sweating None g) Fatigue None h) Drowsiness None Peripheral polyneuropathy Taking Gabapentin 3 times a day. Finds this to be mildly effective at controlling neuropathy symptoms PERIPH VASCULAR DIS NOS Managed by Dr. Hernandez. Taking Plavix as prescribed Essential hypertension Medication changes:No Taking all medications as prescribed: Yes Side effects: No Home BP's: No Denies: headache, chest pain, palpitations, dyspnea and peripheral edema. Last 3 Encounter BP Readings: Date: BP: 04/15/2022 132/68 10/01/2021 122/66 07/09/2021 130/90 Chronic bronchitis (HCC) Patient reports chronic cough. No worsening. Rarely uses albuterol inhaler. Denies SOB, wheezing, hemoptysis. Overdue for lung cancer screening. History of colon cancer Overdue for colonoscopy. Importance of scheduling stressed at last appointment however patient has not called Dr. Hernandez yet. REVIEW OF SYSTEMS General: no fevers, no chills, no night sweats, no change in energy and no significant changes in weight GI: Negative for abdominal discomfort, blood in stools or black stools, change in bowel habit, heart burn, nausea, vomiting : ileoconduit present PAST MEDICAL HISTORY Diagnosis Date AAA (abdominal aortic aneurysm) (HCC) 05/06/2013 Bladder cancer (HCC) 08/29/2016 Bladder tumor BPH without urinary obstruction 08/04/2015 Cervicalgia 11/03/2008 CHRONIC AIRWAY OBSTRUCTION NEC 01/12/2009 Colon cancer (HCC) 07/19/2013 s/p laparoscopic with conversion to open low anterior resection of the colon with abscess and appendectomy and completed chemo 2013 HYPERTENSION NOS 12/01/2008 Hypertrophy of prostate without urinary obstruction and other lower urinary tract symptoms (LUTS) 12/01/2008 Malignant neoplasm of overlapping sites of bladder (HCC) Pain in limb 06/14/2005 PERIPH VASCULAR DIS NOS 06/21/2005 s/p bilateral common iliac artery [place] stenting. s/p angioplasty of instent PAD stent 2013 PURE HYPERCHOLESTEROLEM 06/21/2005 Rheumatoid arthritis(714.0) 03/04/2010 hands Tobacco use disorder 06/14/2005 PAST SURGICAL HISTORY Procedure Laterality Date ANGIOPLASTY FEMORAL/POP Bilateral 07/03/2019 multiple stents (4) ANGIOPLASTY-ILIAC Bilateral 06/21/2021 R exteranl iliac angioplasty/stent. L common iliac, external iliac angioplasty COLECTOMY PRTL W/COLOPROCTOSTOMY 07/25/2013 COLONOSCOPY 07/04/2017 recheck in 3 years, Dr. Hernandez COLONOSCOPY FLX DX W/COLLJ SPEC WHEN PFRMD 07/12/2013 Colonoscopy COLONOSCOPY FLX DX W/COLLJ SPEC WHEN PFRMD 07/11/2014 repeat in 3 years ESOPHAGOGASTRODUODENOSCOPY TRANSORAL DIAGNOSTIC 07/12/2013 EGD INSJ TUNNELED CTR VAD W/SUBQ PORT AGE 5 YR/> 08/28/2013 RIGHT LAP CYSTECTOMY COMPLETE WITH CONDUIT 09/08/2016 LAPAROSCOPIC APPENDECTOMY 07/25/2013 LAPAROSCOPIC RADICAL PROSTATECTOMY 08/29/2016 Cysto-prostatectomy, Ileal conduit, pelvic LN dissection PROCTOSGMDSC RGD DX W/WO COLLJ SPEC BR/WA SPX 07/19/2013 REVASCULARIZATION ILIAC ARTERY ANGIOP 1ST VSL 09/12/2011 RMVL [facility] CTR VAD W/SUBQ PORT/SENIOR DIRECTOR INSIGHT CTR/PRPH INSJ 09/03/2014 Removal right IJ port TRANSLUMINAL ANGIOPLASTY - ILIAC 01/15/2004 bilateral stents TRANSLUMINAL ANGIOPLASTY - ILIAC 04/14/2014 bilateral. ALLERGIES Bactrim [Sulfamethoxazole-Trimethoprim] MEDICATIONS acetaminophen-codeine (TYLENOL-COD #4) 300-60 mg per tablet Take 1 tablet by mouth every 4 hours as needed (30 day supply w/ 2 refills.) for up to 90 days. predniSONE (DELTASONE) 10 mg tablet Take 1 tablet by mouth once daily as needed (joint swelling). amLODIPine (NORVASC) 10 mg tablet Take 1 tablet by mouth once daily. ibuprofen (MOTRIN) 800 mg tablet Take 1 tablet by mouth three times daily as needed for pain. lisinopril (ZESTRIL, PRINIVIL) 10 mg tablet Take 1 tablet by mouth once daily. atorvastatin (LIPITOR) 20 mg tablet Take 1 tablet by mouth once daily. gabapentin (NEURONTIN) 300 mg capsule Take 2 capsules by mouth three times daily for 360 days. clopidogrel (PLAVIX) 75 mg tablet Take 1 tablet by mouth once daily. Post stents. albuterol HFA (VENTOLIN HFA) 90 mcg/actuation inhaler Inhale 2 Puffs as instructed every 4 hours as needed for Wheezing/Shortness of Breath. ondansetron (ZOFRAN) 8 mg tablet Take 1 tablet by mouth every 8 hours as needed for Nausea/Vomiting. diphenhydrAMINE-Acetaminophen (TYLENOL PM EXTRA STRENGTH) 25-500 mg tab Take 2 tablets by mouth at bedtime as needed. FAMILY HISTORY Problem Relation Age of Onset Stroke Father Ischemic Heart Disease Mother Heart Maternal Grandmother Heart Brother Social History Tobacco Use Smoking status: Current Every Day Smoker Packs/day: 1.00 Years: 51.00 Pack years: 51.00 Types: Cigarettes Smokeless tobacco: Never Used Vaping Use Vaping Use: Never used Substance Use Topics Alcohol use: Yes Comment: occasional beer Drug use: No PHYSICAL EXAM BP 136/72 Pulse 76 Resp 18 Wt 60.3 kg (133 lb) BMI 20.22 kg/m General Appearance: well appearing, in no acute distress, alert Lungs: Lungs clear to auscultation. No wheezing, rhonchi, rales. Heart: RRR without murmur, gallop, or rubs. No ectopy Health maintenance reviewed with patient: SHINGRIX VACCINE(1 of 2) Never done LUNG CANCER SCREENING due on 08/24/2017 COLORECTAL CANCER SCREENING due on 07/04/2020 COVID-19 VACCINE(3 - Booster for Moderna series) due on 04/15/2023 ANNUAL PCP TEAM CHRONIC DISEASE VISIT due on 01/07/2023 BP CONTROLLED (<130/80) due on 01/07/2023 DEPRESSION SCREENING due on 04/15/2023 DIABETES SCREEN due on 03/23/2024 LIPID SCREEN due on 03/23/2026 DTAP,TDAP,TD(2 - Td or Tdap) due on 04/04/2029 ABDOMINAL AORTIC ANEURYSM SCREENING Completed INFLUENZA Completed ADVANCE DIRECTIVE DISCUSSION Completed HEPATITIS C SCREENING Completed PNEUMOCOCCAL: 65+ Completed DATA REVIEWED: Most recent labs ASSESSMENT/PLAN: 1. Essential hypertension - ICD9: 401.9, ICD10: I10 (primary diagnosis) - good control - Continue current medication(s) - Recommended regular aerobic exercise. - Recommend home blood pressure monitoring, to bring results in on next visit - Goal of BP <130/80 2. Pure hypercholesterolemia - ICD9: 272.0, ICD10: E78.00 Recheck in 3 months - ATORVASTATIN 20 MG TABLET 3. Peripheral polyneuropathy - ICD9: 356.9, ICD10: G62.9 Stable 4. Peripheral vascular disease, unspecified (HCC) - ICD9: 443.9, ICD10: I73.9 Stable 5. Chronic bronchitis, unspecified chronic bronchitis type (HCC) - ICD9: 491.9, ICD10: J42 Stable 6. History of colon cancer - ICD9: V10.05, ICD10: Z85.[address] Hernandez and scheduling colonoscopy stressed to patient again, he verbalized understanding and will call soon 7. Cervicalgia - ICD9: 723.1, ICD10: M54.2 - Prescribed Morphine Equivalent Daily Dose (MEDD): 0 - Controlled substance agreement up to date. - Urine tox screen/pain panel reviewed, no aberrancies Continue present regimen - Course of treatment, patient's response and adherence to the prescribed treatment plan reviewed, including non-pharmacological and non-opioid treatment modalities. Rationale for continuing opioid treatment: improved pain and function.Benefits of opioid therapy outweigh the risks. - Reviewed opioid side effects, required monitoring, controlled substance agreement, risks including accidental overdose, addiction and abuse with patient - PDMP website checked and validated. All prescriptions have been APPROPRIATELY filled. No suspicious activity was identified. 04/15/2022 by Rowena Capone, [employer] SALES EXECUTIVE 8. Encounter for screening for lung cancer - ICD9: V76.0, ICD10: Z12.2 - CONSULT LUNG CANCER SCREENING CLINIC 9. Tobacco use disorder - ICD9: 305.1, ICD10: F17.200 - Cessation encouraged. - Physiologic and physical aspects of tobacco addiction as well as strategies for quitting were discussed. - Counseling was given focusing on the harmful effects of this addiction especially given the patient's medical condition(s) which will be worsened because of the chemicals in tobacco. - no desire to quit 10. S/P ileal conduit (HCC) - ICD9: V44.6, ICD10: Z93.6 Stable 11. Gastroesophageal reflux disease without esophagitis - ICD9: 530.81, ICD10: K21.9 Stable Prescription instructions reviewed with patient as applicable. Potential red flag symptoms discussed with the patient. Reviewed appropriate action plan to take if red flag symptoms occur. Patient agreeable to treatment plan. Rowena Capone APRN.CNP documented in this encounter [facility] documented as of this encounter (statuses as of 04/15/2022) [facility] History of Past illness Narrative* Problem Noted Date Resolved Date Attention to artificial opening of urinary tract 09/07/2017 09/28/2020 Bladder cancer 08/29/2016 09/28/2020 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 08/08/2016 02/28/2017 Centrilobular emphysema 08/08/2016 09/28/20 17 PAD (peripheral artery disease) 08/08/2016 09/28/2017 BPH without urinary obstruction 08/04/2015 09/28/2017 Bladder mass 08/04/2015 05/25/2016 Abnormal prostate on physical examination 201405/25/2016 Smoking history 08/04/2015 09/28/2017 Erectile dysfunction 09/25/2014 09/28/2017 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 09/28/2020 Rheumatoid arthritis 03/04/2010 02/28/2017 Rheumatoid arthritis involving both hands 200905/25/2016 Overview: hands BPH with obstruction/lower urinary tract symptom s 12/01/2008 09/28/2017 Overview: TRACY 1-: smooth and enlarged PSA 1.4 in 8-09 documented as of this encounter (statuses as of 05/06/2022) [facility] History of Past illness Narrative* Problem Noted Date Resolved Date Attention to artificial opening of urinary tract 09/07/2017 09/28/2020 Bladder cancer 08/29/2016 09/28/2020 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 08/08/2016 02/28/2017 Centrilobular emphysema 08/08/2016 09/28/20 17 PAD (peripheral artery disease) 08/08/2016 09/28/2017 BPH without urinary obstruction 08/04/2015 09/28/2017 Bladder mass 08/04/2015 05/25/2016 Abnormal prostate on physical examination 201405/25/2016 Smoking history 08/04/2015 09/28/2017 Erectile dysfunction 09/25/2014 09/28/2017 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 09/28/2020 Rheumatoid arthritis 03/04/2010 02/28/2017 Rheumatoid arthritis involving both hands 200905/25/2016 Overview: hands BPH with obstruction/lower urinary tract symptom s 12/01/2008 09/28/2017 Overview: TRACY 1-09: smooth and enlarged PSA 1.4 in 8- documented as of this encounter (statuses as of 05/10/2022) [facility] History of Past illness Narrative* Problem Noted Date Resolved Date Attention to artificial opening of urinary tract 09/07/2017 09/28/2020 Bladder cancer 08/29/2016 09/28/2020 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 08/08/2016 02/28/2017 Centrilobular emphysema 08/08/2016 09/28/20 17 PAD (peripheral artery disease) 08/08/2016 09/28/2017 BPH without urinary obstruction 08/04/2015 09/28/2017 Bladder mass 08/04/2015 05/25/2016 Abnormal prostate on physical examination 201405/25/2016 Smoking history 08/04/2015 09/28/2017 Erectile dysfunction 09/25/2014 09/28/2017 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 09/28/2020 Rheumatoid arthritis 03/04/2010 02/28/2017 Rheumatoid arthritis involving both hands 200905/25/2016 Overview: hands BPH with obstruction/lower urinary tract symptom s 12/01/2008 09/28/2017 Overview: TRACY 1-09: smooth and enlarged PSA 1.4 in 8-09 documented as of this encounter (statuses as of 05/10/2022) [facility] History of Past illness Narrative* Problem Noted Date Resolved Date Attention to artificial opening of urinary tract 09/07/2017 09/28/2020 Bladder cancer 08/29/2016 09/28/2020 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 08/08/2016 02/28/2017 Centrilobular emphysema 08/08/2016 09/28/20 17 PAD (peripheral artery disease) 08/08/2016 09/28/2017 BPH without urinary obstruction 08/04/2015 09/28/2017 Bladder mass 08/04/2015 05/25/2016 Abnormal prostate on physical examination 201405/25/2016 Smoking history 08/04/2015 09/28/2017 Erectile dysfunction 09/25/2014 09/28/2017 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 09/28/2020 Rheumatoid arthritis 03/04/2010 02/28/2017 Rheumatoid arthritis involving both hands 200905/25/2016 Overview: hands BPH with obstruction/lower urinary tract symptom s 12/01/2008 09/28/2017 Overview: TRACY 1-09: smooth and enlarged PSA 1.4 in 8-09 documented as of this encounter (statuses as of 07/05/2022) [facility] History of Past illness Narrative* Problem Noted Date Resolved Date Attention to artificial opening of urinary tract 09/07/2017 09/28/2020 Bladder cancer 08/29/2016 09/28/2020 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 08/08/2016 02/28/2017 Centrilobular emphysema 08/08/2016 09/28/20 17 PAD (peripheral artery disease) 08/08/2016 09/28/2017 BPH without urinary obstruction 08/04/2015 09/28/2017 Bladder mass 08/04/2015 05/25/2016 Abnormal prostate on physical examination 201405/25/2016 Smoking history 08/04/2015 09/28/2017 Erectile dysfunction 09/25/2014 09/28/2017 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 09/28/2020 Rheumatoid arthritis 03/04/2010 02/28/2017 Rheumatoid arthritis involving both hands 200905/25/2016 Overview: hands BPH with obstruction/lower urinary tract symptom s 12/01/2008 09/28/2017 Overview: TRACY 1-09: smooth and enlarged PSA 1.4 in 8-09 documented as of this encounter (statuses as of 07/12/2022) [facility] History of Past illness Narrative* Problem Noted Date Resolved Date Attention to artificial opening of urinary tract 09/07/2017 09/28/2020 Bladder cancer 08/29/2016 09/28/2020 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 08/08/2016 02/28/2017 Centrilobular emphysema 08/08/2016 09/28/20 17 PAD (peripheral artery disease) 08/08/2016 09/28/2017 BPH without urinary obstruction 08/04/2015 09/28/2017 Bladder mass 08/04/2015 05/25/2016 Abnormal prostate on physical examination 201405/25/2016 Smoking history 08/04/2015 09/28/2017 Erectile dysfunction 09/25/2014 09/28/2017 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 09/28/2020 Rheumatoid arthritis 03/04/2010 02/28/2017 Rheumatoid arthritis involving both hands 200905/25/2016 Overview: hands BPH with obstruction/lower urinary tract symptom s 12/01/2008 09/28/2017 Overview: TRACY 1-09: smooth and enlarged PSA 1.4 in 8-09 documented as of this encounter (statuses as of 09/05/2022) [facility]11-16-2017 History of Past illness Narrative* Problem Noted Date Resolved Date Attention to artificial opening of urinary tract 09/07/2017 09/28/2020 Bladder cancer 08/29/2016 09/28/2020 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 08/08/2016 02/28/2017 Centrilobular emphysema 08/08/2016 09/28/20 17 PAD (peripheral artery disease) 08/08/2016 09/28/2017 BPH without urinary obstruction 08/04/2015 09/28/2017 Bladder mass 08/04/2015 05/25/2016 Abnormal prostate on physical examination 201405/25/2016 Smoking history 08/04/2015 09/28/2017 Erectile dysfunction 09/25/2014 09/28/2017 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 09/28/2020 Rheumatoid arthritis 03/04/2010 02/28/2017 Rheumatoid arthritis involving both hands 200905/25/2016 Overview: hands BPH with obstruction/lower urinary tract symptom s 12/01/2008 09/28/2017 Overview: TRACY 1-09: smooth and enlarged PSA 1.4 in 8- documented as of this encounter (statuses as of 10/05/2022) [facility]-16-2017 History of Past illness Narrative* Problem Noted Date Resolved Date Attention to artificial opening of urinary tract 09/07/2017 09/28/2020 Bladder cancer 08/29/2016 09/28/2020 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 08/08/2016 02/28/2017 Centrilobular emphysema 08/08/2016 09/28/20 17 PAD (peripheral artery disease) 08/08/2016 09/28/2017 BPH without urinary obstruction 08/04/2015 09/28/2017 Bladder mass 08/04/2015 05/25/2016 Abnormal prostate on physical examination 201405/25/2016 Smoking history 08/04/2015 09/28/2017 Erectile dysfunction 09/25/2014 09/28/2017 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 09/28/2020 Rheumatoid arthritis 03/04/2010 02/28/2017 Rheumatoid arthritis involving both hands 200905/25/2016 Overview: hands BPH with obstruction/lower urinary tract symptom s 12/01/2008 09/28/2017 Overview: TRACY 1-09: smooth and enlarged PSA 1.4 in 8-09 documented as of this encounter (statuses as of 10/10/2022) [facility]-2017 History of Past illness Narrative* Problem Noted Date Resolved Date Attention to artificial opening of urinary tract 09/07/2017 09/28/2020 Bladder cancer 08/29/2016 09/28/2020 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 08/08/2016 02/28/2017 Centrilobular emphysema 08/08/2016 09/28/20 17 PAD (peripheral artery disease) 08/08/2016 09/28/2017 BPH without urinary obstruction 08/04/2015 09/28/2017 Bladder mass 08/04/2015 05/25/2016 Abnormal prostate on physical examination 201405/25/2016 Smoking history 08/04/2015 09/28/2017 Erectile dysfunction 09/25/2014 09/28/2017 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 09/28/2020 Rheumatoid arthritis 03/04/2010 02/28/2017 Rheumatoid arthritis involving both hands 200905/25/2016 Overview: hands BPH with obstruction/lower urinary tract symptom s 12/01/2008 09/28/2017 Overview: TRACY 1-09: smooth and enlarged PSA 1.4 in 8-09 documented as of this encounter (statuses as of 11/11/2022) [facility]2017 History of Past illness Narrative* Problem Noted Date Resolved Date Attention to artificial opening of urinary tract 09/07/2017 09/28/2020 Bladder cancer 08/29/2016 09/28/2020 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 08/08/2016 02/28/2017 Centrilobular emphysema 08/08/2016 09/28/20 17 PAD (peripheral artery disease) 08/08/2016 09/28/2017 BPH without urinary obstruction 08/04/2015 09/28/2017 Bladder mass 08/04/2015 05/25/2016 Abnormal prostate on physical examination 201405/25/2016 Smoking history 08/04/2015 09/28/2017 Erectile dysfunction 09/25/2014 09/28/2017 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 09/28/2020 Rheumatoid arthritis 03/04/2010 02/28/2017 Rheumatoid arthritis involving both hands 200905/25/2016 Overview: hands BPH with obstruction/lower urinary tract symptom s 12/01/2008 09/28/2017 Overview: TRACY 1-09: smooth and enlarged PSA 1.4 in 8-09 documented as of this encounter (statuses as of 01/17/2023) [facility]2017 History of Past illness Narrative* Problem Noted Date Diagnosed Date Resolved Date Attention to artificial open ing of urinary tract 09/07/2017 09/28/2020 Bladder cancer 08/29/2016 09/28/2020 Rheumatoid arthritis with po sitive rheumatoid factor 08/08/2016 02/28/2017 Centrilobular emphysema 08/08/201604/2017 PAD (peripheral artery disease) 08/08/2016 09/28/2017 BPH without urinary obstruction 08/04/2015 09/28/2017 Bladder mass 08/04/2015 05/25/2016 Abnormal prostate on physical examination 08/04/2015 05/25/2016 Smoking history 08/04/2015 09/28/2017 Erectile dysfunction 09/25/2014 017 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 0 Rheumatoid arthritis 03/04/2010 017 Rheumatoid arthritis involving both hands 03/04/2010 05/25/2016 Overview: hands BPH with obstruction/lower u rinary tract symptoms 12/01/2008 09/28/2017 Overview: TRACY 1-09: smooth and enlarged PSA 1.4 in 8-09 documented as of this encounter (statuses as of 05/30/2023) [facility]2017 History of Past illness Narrative* Problem Noted Date Diagnosed Date Resolved Date Attention to artificial open ing of urinary tract 09/07/2017 09/28/2020 Bladder cancer 08/29/2016 09/28/2020 Rheumatoid arthritis with po sitive rheumatoid factor 08/08/2016 02/28/2017 Centrilobular emphysema 08/08/2016 120 04/2017 PAD (peripheral artery disease) 08/08/2016 09/28/2017 BPH without urinary obstruction 08/04/2015 09/28/2017 Bladder mass 08/04/2015 05/25/2016 Abnormal prostate on physical examination 08/04/2015 05/25/2016 Smoking history 08/04/2015 09/28/2017 Erectile dysfunction 09/25/2014 017 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 0 Rheumatoid arthritis 03/04/2010 017 Rheumatoid arthritis involving both hands 03/04/2010 05/25/2016 Overview: hands BPH with obstruction/lower u rinary tract symptoms 12/01/2008 09/28/2017 Overview: TRACY 1-09: smooth and enlarged PSA 1.4 in 8- documented as of this encounter (statuses as of 07/12/2023) [facility]2017 History of Past illness Narrative* Problem Noted Date Diagnosed Date Resolved Date Attention to artificial open ing of urinary tract 09/07/2017 09/28/2020 Bladder cancer 08/29/2016 09/28/2020 Rheumatoid arthritis with po sitive rheumatoid factor 08/08/2016 02/28/2017 Centrilobular emphysema 08/08/2016 1204/2017 PAD (peripheral artery disease) 08/08/2016 09/28/2017 BPH without urinary obstruction 08/04/2015 09/28/2017 Bladder mass 08/04/2015 05/25/2016 Abnormal prostate on physical examination 08/04/2015 05/25/2016 Smoking history 08/04/2015 09/28/2017 Erectile dysfunction 09/25/2014 017 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 0 Rheumatoid arthritis 03/04/2010 017 Rheumatoid arthritis involving both hands 03/04/2010 05/25/2016 Overview: hands BPH with obstruction/lower u rinary tract symptoms 12/01/2008 09/28/2017 Overview: TRACY 1-09: smooth and enlarged PSA 1.4 in 8- documented as of this encounter (statuses as of 07/15/2023) [facility] History of Past illness Narrative* Problem Noted Date Diagnosed Date Resolved Date Attention to artificial open ing of urinary tract 09/07/2017 09/28/2020 Bladder cancer 08/29/2016 09/28/2020 Rheumatoid arthritis with po sitive rheumatoid factor 08/08/2016 02/28/2017 Centrilobular emphysema 08/08/2016 12/0 04/2017 PAD (peripheral artery disease) 08/08/2016 09/28/2017 BPH without urinary obstruction 08/04/2015 09/28/2017 Bladder mass 08/04/2015 05/25/2016 Abnormal prostate on physical examination 08/04/2015 05/25/2016 Smoking history 08/04/2015 09/28/2017 Erectile dysfunction 09/25/2014 017 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 0 Rheumatoid arthritis 03/04/2010 017 Rheumatoid arthritis involving both hands 03/04/2010 05/25/2016 Overview: hands BPH with obstruction/lower u rinary tract symptoms 12/01/2008 09/28/2017 Overview: TRACY 1-09: smooth and enlarged PSA 1.4 in 8-09 documented as of this encounter (statuses as of 08/23/2023) [facility] Diagnosis Essential hypertension- Primary Unspecified essential hypertension Pure hypercholesterolemia Peripheral polyneuropathy Unspecified hereditary and idiopathic peripheral neuropathy Peripheral vascular disease, unspecified (HCC) Peripheral vascular disease, unspecified Chronic bronchitis, unspecified chronic bronchitis type (HCC) History of colon cancer Personal history of malignant neoplasm of large intestine Cervicalgia Encounter for screening for lung cancer Tobacco use disorder S/P ileal conduit (HCC) Ileostomy status Gastroesophageal reflux disease without esophagitis Esophageal reflux [facility] Diagnosis 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 [facility] Diagnosis Cervicalgia Pure hypercholesterolemia [facility] Diagnosis Cervicalgia [facility] Diagnosis Cervicalgia- Primary Encounter for drug screening Other specified examination Encounter for long-term current use of high risk medication Need for influenza vaccination Need for prophylactic vaccination and inoculation against influenza documented in this encounter [facility] note* Diagnosis Screening for colon cancer Special screening for malignant neoplasms, colon documented in this encounter [facility] note* Diagnosis Cervicalgia documented in this encounter [facility] note* Diagnosis Medicare annual wellness visit, subsequent- Primary Routine general medical examination at a health care facility Cervicalgia documented in this encounter [facility] note* Diagnosis Pure hypercholesterolemia documented in this encounter [facility] note* Diagnosis Essential hypertension- Primary Unspecified essential hypertension Cervicalgia Tobacco use disorder S/P ileal conduit (HCC) Ileostomy status Peripheral vascular disease, unspecified (HCC) Peripheral vascular disease, unspecified Encounter for drug screening Other specified examination High risk medications (not anticoagulants) long-term use Encounter for long-term (current) use of other medications Chronic bronchitis, unspecified chronic bronchitis type (HCC) documented in this encounter [facility] note* Diagnosis Cervicalgia documented in this encounter [facility] note* Diagnosis Cervicalgia- Primary Need for influenza vaccination Need for prophylactic vaccination and inoculation against influenza documented in this encounter [facility] note* Diagnosis Kidney insufficiency- Primary Unspecified disorder of kidney and ureter documented in this encounter [facility] note* Diagnosis Cervicalgia documented in this encounter [facility] for referral (narrative)* Outpatient Procedure (Routine) - Pending Review Specialty Diagnoses / Procedures Referred By Sylvia michael Referred To Contact [facility] Diagnoses Screening for colon cancer Procedures COLONOSCOPY SCREENING COLONOSCOPY FLX DX W/COLLJ SPEC WHEN PFRMD Arnie Fraser MD [address] [place] [address] [facility] [address] [place] [phone] Referral ID Status Reason Start Date Expiration Date Visits Requested Visits Authorized [id number] Pending Review Auto-Generat ed Referral 08/31/2022 08/31/2023 1 1 [facility] Advance Directives No Advanced Directives Records FoundDocuments on File Type Date 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 Advance Directive(s) 08/24/2016 12:28 PM Advance Directive(s) 08/08/2016 11:00 AM Advance Directive(s) 08/04/2016 1:16 PM Summary Purpose Family History No Family History Records Found Additional Source Comments Source Comments (unrecognize d section and content) In the event this informatio n is protected by the Federal Confidentiality of Alcohol and Drug Abuse Patient Records regulations: The Federal rules restrict any use of the information to criminally investigate or prosecute any alcohol or drug abuse patient.[facility] the event this information is protected by the Federal Confidentiality of Alcohol and Drug Abuse Patient Records regulations: The Federal rules restrict any use of the information to criminally investigate or prosecute any alcohol or drug abuse patient.[facility] the event this information is protected by the Federal Confidentiality of Alcohol and Drug Abuse Patient Records regulations: The Federal rules restrict any use of the information to criminally investigate or prosecute any alcohol or drug abuse patient.[facility] the event this information is protected by the Federal Confidentiality of Alcohol and Drug Abuse Patient Records regulations: The Federal rules restrict any use of the information to criminally investigate or prosecute any alcohol or drug abuse patient.[facility] the event this information is protected by the Federal Confidentiality of Alcohol and Drug Abuse Patient Records regulations: The Federal rules restrict any use of the information to criminally investigate or prosecute any alcohol or drug abuse patient.[facility] the event this information is protected by the Federal Confidentiality of Alcohol and Drug Abuse Patient Records regulations: The Federal rules restrict any use of the information to criminally investigate or prosecute any alcohol or drug abuse patient.[facility] the event this information is protected by the Federal Confidentiality of Alcohol and Drug Abuse Patient Records regulations: The Federal rules restrict any use of the information to criminally investigate or prosecute any alcohol or drug abuse patient.[facility] the event this information is protected by the Federal Confidentiality of Alcohol and Drug Abuse Patient Records regulations: The Federal rules restrict any use of the information to criminally investigate or prosecute any alcohol or drug abuse patient.[facility] the event this information is protected by the Federal Confidentiality of Alcohol and Drug Abuse Patient Records regulations: The Federal rules restrict any use of the information to criminally investigate or prosecute any alcohol or drug abuse patient.[facility] the event this information is protected by the Federal Confidentiality of Alcohol and Drug Abuse Patient Records regulations: The Federal rules restrict any use of the information to criminally investigate or prosecute any alcohol or drug abuse patient.[facility] the event this information is protected by the Federal Confidentiality of Alcohol and Drug Abuse Patient Records regulations: The Federal rules restrict any use of the information to criminally investigate or prosecute any alcohol or drug abuse patient.[facility] the event this information is protected by the Federal Confidentiality of Alcohol and Drug Abuse Patient Records regulations: The Federal rules restrict any use of the information to criminally investigate or prosecute any alcohol or drug abuse patient.[facility] the event this information is protected by the Federal Confidentiality of Alcohol and Drug Abuse Patient Records regulations: The Federal rules restrict any use of the information to criminally investigate or prosecute any alcohol or drug abuse patient.[facility] the event this information is protected by the Federal Confidentiality of Alcohol and Drug Abuse Patient Records regulations: The Federal rules restrict any use of the information to criminally investigate or prosecute any alcohol or drug abuse patient.[facility] the event this information is protected by the Federal Confidentiality of Alcohol and Drug Abuse Patient Records regulations: The Federal rules restrict any use of the information to criminally investigate or prosecute any alcohol or drug abuse patient.[facility] Reason for Visit (unrecogniz ed section and content) Reason Onset Date Comments Population Health Navigation Outreach 05/06/2022 [facility] Reason Onset Date Comments Refill Request 05/10/2022 Reason Onset Date Comments Refill Request 07/04/2022 Reason Onset Date Comments F/U 3 Month Immunizations 07/12/2022 Flu vaccination Reason Onset Date Comments Refill Request 10/05/2022 Reason Comments Medicare Wellness Exam Reason Onset Date Comments Refill Request 11/10/2022 Reason Comments F/U 3 Month Requesting 2 new ord er for parking placards Reason Onset Date Comments Refill Request 05/28/2023 Reason Onset Date Comments F/U 3 Month Immunizations 07/12/2023 Flu vaccination Reason Onset Date Comments Refill Request 08/22/2023 Care Teams (unrecognized sec tion and content) 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 Specialty Start Date End Date Arnie Fraser MD [address] [place] [address] PCP - General 11/26/09 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 Specialty Start Date End Date Arnie Fraser MD [address] [place] [address] PCP - General 11/26/09 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 Specialty Start Date End Date Arnie Fraser MD [address] [facility] [place] [address] PCP - General 11/26/09 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 Specialty Start Date End Date Arnie Fraser MD [address] [facility] [place] [address] PCP - General 11/26/09 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 Specialty Start Date End Date Arnie Fraser MD [address] [facility] [place] [address] PCP - General 11/26/09 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 Specialty Start Date End Date Arnie Fraser MD [address] [place] [address] PCP - General 11/26/09 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 Specialty Start Date End Date Arnie Fraser MD [address] [place] [address] PCP General 11/26/09 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 Specialty Start Date End Date Arnie Fraser MD [address] [place] [address] PCP General 11/26/09 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 Specialty Start Date End Date Arnie Fraser MD [address] [place] [address] [facility] 11/26/09 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 Specialty Start Date End Date Arnie Fraser MD [address] [place] [address] [facility] 11/26/09 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 This clinical summary was aggregated from multiple sources. Caution should be exercised in using it in the provision of clinical care. This summary normalizes information from multiple sources, and as a consequence, information in this document may materially change the coding, format and clinical context of patient data. In addition, data may be omitted in some cases. CLINICAL DECISIONS SHOULD BE BASED ON THE PRIMARY CLINICAL RECORDS. [facility]. provides no warranty or guarantee of the accuracy or completeness of information in this document.
== END | disposition home or self-care (01) ==
PROVIDERS: PCP Internal Medicine; Referring Provider Surgery; Visit Provider Surgery
DX: I65.23 Occlusion and stenosis of bilateral carotid arteries (principal); I73.9 Peripheral vascular disease, unspecified; I71.43 Infrarenal abdominal aortic aneurysm, without rupture
CPT/HCPCS: 93880; 93923; 93978

== ENCOUNTER 2023-12-29 06:52 | Day surgery (SDC) | payer MEDICARE, SELFPAY ==
[2023-12-29] VITALS (7 sets, daily range): BP systolic 83–130; BP diastolic 48–69; PULSE 53–100; RESP 16–18; TEMP 36.3–36.4; O2SAT 98–100; BMI 19.5
--- OUTSIDE RECORDS SUMMARY | 2023-12-29 06:57 | XMS RPT_ITS | CCD ---
Author Name Unknown Address [address] [place] [address] Organization [facility] Care Team Providers Care Board Design Engineer Name Role Phone Ochoa Hernandez MD Unavailable [phone] Saba Stone Unavailable Unavailable Jenna Lacy Unavailable Unavailable Андрей VELASQUEZ, Arnie Barnhart Primary Care Provider [phone] Андрей VELASQUEZ, Arnie Barnhart Primary Care Provider [phone] Андрей VELASQUEZ, Arnie Barnhart Primary Care Provider [phone] ARNIE FRASER Primary Care Unavailable ROWENA SARABIA [...] sulfamethoxazole / trimethoprim drug allergy 7 rash [facility] Work Phone: (16 sources) Sulfamethoxazole / Trimethoprim; Translations: [SULFAMETHOXAZOLE-TR IMETHOPRIM] Drug Allergy 6 Other: See Comments [facility] Medications Current Medications Medication Drug Class(es) Dates [...] (1 source) Drug therapy finding; Translations: [Other terminal make up operator (current) drug therapy] Episodic Other diseases of [...] 08:50-0400 Body temperature 98.4 [degF] Rowena Older BANDER AND CELLOPHANER MACHINE HELPER.SLAG WORKER Work Phone: [facility] 07-12-2023 08:50-0400 Body weight 59.42 kg Rowena Older BANDER AND CELLOPHANER MACHINE HELPER.SLAG WORKER Work Phone: [facility] 07-12-2023 08:50-0400 Diastolic blood pressure 72 mm[Hg] Rowena Older BANDER AND CELLOPHANER MACHINE HELPER.SLAG WORKER Work Phone: [facility] 07-12-2023 08:50-0400 Heart rate 76 /min Rowena Older BANDER AND CELLOPHANER MACHINE HELPER.SLAG WORKER Work Phone: [facility] 07-12-2023 08:50-0400 Respiratory rate 20 /min Rowena Older BANDER AND CELLOPHANER MACHINE HELPER.SLAG WORKER Work Phone: [facility] 07-12-2023 08:50-0400 SaO2% (BldA) [Mass fraction] 94 % Rowena Older BANDER AND CELLOPHANER MACHINE HELPER.SLAG WORKER Work Phone: [facility] 07-12-2023 08:50-0400 Systolic blood pressure 132 mm[Hg] Rowena Older BANDER AND CELLOPHANER MACHINE HELPER.SLAG WORKER Work Phone: [facility] 01-17-2023 07:53-0400 Body weight 58.06 kg Rowena Older BANDER AND CELLOPHANER MACHINE HELPER.SLAG WORKER Work Phone: [facility] 01-17-2023 07:53-0400 Diastolic blood pressure 58 mm[Hg] Rowena Older BANDER AND CELLOPHANER MACHINE HELPER.SLAG WORKER Work Phone: [facility] 01-17-2023 07:53-0400 Heart rate 100 /min Rowena Older BANDER AND CELLOPHANER MACHINE HELPER.SLAG WORKER Work Phone: [facility] 01-17-2023 07:53-0400 Respiratory rate 14 /min Rowena Older BANDER AND CELLOPHANER MACHINE HELPER.SLAG WORKER Work Phone: [facility] 01-17-2023 07:53-0400 Systolic blood pressure 116 mm[Hg] Rowena Older BANDER AND CELLOPHANER MACHINE HELPER.SLAG WORKER Work Phone: [facility] 10-10-2022 08:56-0500 Body height 171.5 cm Rowena Older BANDER AND CELLOPHANER MACHINE HELPER.SLAG WORKER Work Phone: [facility] 10-10-2022 08:56-0500 Body weight 59.88 kg Rowena Older BANDER AND CELLOPHANER MACHINE HELPER.SLAG WORKER Work Phone: [facility] 10-10-2022 08:56-0500 Diastolic blood pressure 67 mm[Hg] Rowena Older BANDER AND CELLOPHANER MACHINE HELPER.SLAG WORKER Work Phone: [facility] 10-10-2022 08:56-0500 Heart rate 103 /min Rowena Older BANDER AND CELLOPHANER MACHINE HELPER.SLAG WORKER Work Phone: [facility] 10-10-2022 08:56-0500 Respiratory rate 18 /min Rowena Older BANDER AND CELLOPHANER MACHINE HELPER.SLAG WORKER Work Phone: [facility] 10-10-2022 08:56-0500 Systolic blood pressure 113 mm[Hg] Rowena Older BANDER AND CELLOPHANER MACHINE HELPER.SLAG WORKER Work Phone: [facility] 07-12-2022 09:36-0400 Body temperature 98.6 [degF] Rowena Older BANDER AND CELLOPHANER MACHINE HELPER.SLAG WORKER Work Phone: [facility] 07-12-2022 09:36-0400 Body weight 60.78 kg Rowena Older BANDER AND CELLOPHANER MACHINE HELPER.SLAG WORKER Work Phone: [facility] 07-12-2022 09:36-0400 Diastolic blood pressure 68 mm[Hg] Rowena Older BANDER AND CELLOPHANER MACHINE HELPER.SLAG WORKER Work Phone: [facility] 07-12-2022 09:36-0400 Heart rate 92 /min Rowena Older BANDER AND CELLOPHANER MACHINE HELPER.SLAG WORKER Work Phone: [facility] 07-12-2022 09:36-0400 Respiratory rate 12 /min Rowena Older BANDER AND CELLOPHANER MACHINE HELPER.SLAG WORKER Work Phone: [facility] 07-12-2022 09:36-0400 Systolic blood pressure 116 mm[Hg] Rowena Older BANDER AND CELLOPHANER MACHINE HELPER.SLAG WORKER Work Phone: [facility] 04-15-2022 09:30-0400 Diastolic blood pressure 68 mm[Hg] Rowena Older BANDER AND CELLOPHANER MACHINE HELPER.SLAG WORKER Work Phone: [facility] 04-15-2022 09:30-0400 Systolic blood pressure 132 mm[Hg] Rowena Older BANDER AND CELLOPHANER MACHINE HELPER.SLAG WORKER Work Phone: [facility] 04-15-2022 09:12-0400 Body weight 60.33 kg Rowena Older BANDER AND CELLOPHANER MACHINE HELPER.SLAG WORKER Work Phone: [facility] 04-15-2022 09:12-0400 Heart rate 76 /min Rowena Older BANDER AND CELLOPHANER MACHINE HELPER.SLAG WORKER Work Phone: [facility] 04-15-2022 09:12-0400 Respiratory rate 18 /min Rowena Older BANDER AND CELLOPHANER MACHINE HELPER.SLAG WORKER Work Phone: [facility] 06-15-2017 08:48-0400 BMI (Body Mass Index) 21.44 kg/m2 [facility] Work Phone: 06-15-2017 08:48-0400 Body Temperature 98 [degF] [facility] Work Phone: 06-15-2017 08:48-0400 BP Diastolic 90 mm[Hg] [facility] Work Phone: 06-15-2017 08:48-0400 BP Systolic 165 mm[Hg] [facility] Work Phone: 06-15-2017 08:48-0400 Height 175.26 cm [facility] Work Phone: 06-15-2017 08:48-0400 Pulse (Heart Rate) 70 /min [facility] Work Phone: 06-15-2017 08:48-0400 Respiratory Rate 18 /min [facility] Work Phone: 06-15-2017 08:48-0400 Weight 65.86 kg [facility] Work Phone: Encounters Encounter Date Encounter Type Care Provider Facility Start: 10-20-2023 End: 10-21-2023 ambulatory ARNIE FRASER Facility:[facility] Start: 08-22-2023 Refill Rowena Older BANDER AND CELLOPHANER MACHINE HELPER .SLAG WORKER Work Phone: Internal Medicine [facility] Procedures Date Procedure Procedure Detail Performing Clinician Start: 07-14-2023 Lipid 1996 panel - S deyanira or Plasma Arnie Fraser MD Work Phone: Start: 07-12-2023 INFLUENZA VACCINE, P RSV FREE, AGE 65+ YR, HIGH DOSE, QUADRIVALENT (FLUZONE HIGH-DOSE) Rowena Older BANDER AND CELLOPHANER MACHINE HELPER.SLAG WORKER Work Phone: Start: 07-12-2022 INFLUENZA SEASONAL QUADRIVALENT HIGH DOSE AGE 65+ Rowena Older BANDER AND CELLOPHANER MACHINE HELPER.SLAG WORKER Work Phone: Start: 07-04-2022 Lipid 1996 panel - S deyanira or Plasma Rowena Older BANDER AND CELLOPHANER MACHINE HELPER.SLAG WORKER Work Phone: Start: 04-15-2022 Adult depression screening assessment Rowena Older BANDER AND CELLOPHANER MACHINE HELPER.SLAG WORKER Work Phone: Start: 03-30-2021 H/O: surgery S/P ileal conduit Rowena O lder BANDER AND CELLOPHANER MACHINE HELPER.SLAG WORKER Work Phone: Start: 07-04-2017 Colonoscopy Rowena Older BANDER AND CELLOPHANER MACHINE HELPER.SLAG WORKER Work Phone: H/O: surgery S/P ileal condui t (HCC) Rowena Older BANDER AND CELLOPHANER MACHINE HELPER.SLAG WORKER Work Phone: H/O: surgery S/P ileal condui t (HCC) Rowena Older BANDER AND CELLOPHANER MACHINE HELPER.SLAG WORKER Work Phone: Plan of Treatment Date Care Activity Detail Author Start: 04-04-2029 Urine microalbumin profile [facility] Start: 07-14-2028 Lipid 1996 panel - S deyanira or Plasma Lipid Screening [facility] Start: 07-04-2027 Lipid 1996 panel - S deyanira or Plasma Lipid Screening [facility] Start: 07-04-2027 LIPID SCREEN LIPID SCREEN [facility] Start: 07-14-2026 Diabetes Screening Diabetes Screenin [facility] Start: 03-23-2026 LIPID SCREEN LIPID SCREEN [facility] Start: 07-04-2025 DIABETES SCREEN DIABETES SCREEN [facility] Start: 07-04-2025 Diabetes Screening Diabetes Screenin g [facility] Start: 07-12-2024 Annual PCP Team [employer] Chemist tray Disease Visit Annual PCP Team Chronic Disease Visit [facility] Start: 04-20-2024 ANNUAL PCP TEAM KARATE BLACK BELT TRAY DISEASE VISIT ANNUAL PCP TEAM CHRONIC DISEASE VISIT [facility] Start: 04-20-2024 COVID-19 VACCINE (3 - Moderna series) COVID-19 VACCINE (3 - Moderna series) [facility] Immunizations Immunization Date Immunization Notes Care Provider Fa lizette 07-12-2023 influenza (HD-IIV4) vaccine, age 65+ yr, high dose, quadrivalent, PF (FLUZONE HIGH-DOSE) Rowena Older BANDER AND CELLOPHANER MACHINE HELPER.SLAG WORKER Work Phone: [facility] Work Phone: 07-12-2022 influenza, high-dose , quadrivalent vaccine (FLUZONE HIGH DOSE QUADRIVALENT) Rowena Older BANDER AND CELLOPHANER MACHINE HELPER.SLAG WORKER Work Phone: [facility] Work Phone: 07-09-2021 influenza, high-dose , quadrivalent vaccine (FLUZONE HIGH DOSE QUADRIVALENT) Rowena Older BANDER AND CELLOPHANER MACHINE HELPER.SLAG WORKER Work Phone: [facility] 01-20-2021 COVID-19 vaccine, fu ll dose (MODERNA) Rowena Older BANDER AND CELLOPHANER MACHINE HELPER.SLAG WORKER Work Phone: [facility] Work Phone: 12-23-2020 COVID-19 vaccine, fu ll dose (MODERNA) Rowena Older BANDER AND CELLOPHANER MACHINE HELPER.SLAG WORKER Work Phone: [facility] Work Phone: 08-14-2020 influenza, high-dose , quadrivalent vaccine (FLUZONE HIGH DOSE QUADRIVALENT) Rowena Older BANDER AND CELLOPHANER MACHINE HELPER.SLAG WORKER Work Phone: [facility] Work Phone: 08-23-2019 influenza, high dose seasonal, preservative-free Rowena Older BANDER AND CELLOPHANER MACHINE HELPER.SLAG WORKER Work Phone: [facility] 04-04-2019 tetanus toxoid, redu tami diphtheria toxoid, and acellular pertussis vaccine, adsorbed Rowena Older BANDER AND CELLOPHANER MACHINE HELPER.SLAG WORKER Work Phone: [facility] Work Phone: 08-07-2018 influenza, high dose seasonal, preservative-free Rowena Older BANDER AND CELLOPHANER MACHINE HELPER.SLAG WORKER Work Phone: [facility] Work Phone: 07-07-2017 influenza, high dose seasonal, preservative-free Rowena Older BANDER AND CELLOPHANER MACHINE HELPER.SLAG WORKER Work Phone: [facility] Work Phone: 08-23-2016 pneumococcal polysaccharide vaccine, 23 valent Rowena Older BANDER AND CELLOPHANER MACHINE HELPER.SLAG WORKER Work Phone: [facility] Work Phone: 07-05-2016 influenza, high dose seasonal, preservative-free Rowena Older BANDER AND CELLOPHANER MACHINE HELPER.SLAG WORKER Work Phone: [facility] 07-13-2015 influenza, high dose seasonal, preservative-free Rowena Older BANDER AND CELLOPHANER MACHINE HELPER.SLAG WORKER Work Phone: [facility] 05-25-2015 pneumococcal conjuga te vaccine, 13 valent Rowena Older BANDER AND CELLOPHANER MACHINE HELPER.SLAG WORKER Work Phone: [facility] 08-20-2014 influenza, high dose seasonal, preservative-free Rowena Older BANDER AND CELLOPHANER MACHINE HELPER.SLAG WORKER Work Phone: [facility] 08-16-2013 influenza virus vacc ine, unspecified formulation Rowena Older BANDER AND CELLOPHANER MACHINE HELPER.SLAG WORKER Work Phone: [facility] Work Phone: 04-22-2011 pneumococcal polysaccharide vaccine, 23 valent Rowena Older BANDER AND CELLOPHANER MACHINE HELPER.SLAG WORKER Work Phone: [facility] 07-08-2010 pneumococcal polysaccharide vaccine, 23 valent Rowena Older BANDER AND CELLOPHANER MACHINE HELPER.SLAG WORKER Work Phone: [facility] Work Phone: Payers Date Payer Category Payer Medicare HUMANA MEDICARE HUMANA GOLD PLUS [id number] 2021-Present [id number] [place] [id number] O [id number] 2019 Medicare [id number] 2019 Private Health Insurance [id number] Social History Date Type Detail Facility Start: 04-01-2021 End: 07-12-2022 Tobacco smoking status NHIS Smokes tobacco daily [facility] Work Phone: History of tobacco use Cigarette Smoker [facility] Start: 04-15-2022 End: 07-12-2023 Alcohol intake Current drinker of alcohol (finding) [facility] Start: 01-06-2022 History SDOH Alcohol Frequency 2 [facility] Start: 01-06-2022 History SDOH Alcohol Binge 1 [facility] Start: 10-17-2019 History SDOH Alcohol Comment occasional beer [facility] Start: 01-06-2022 History SDOH Social Connections Phone 5 [facility] Start: 01-06-2022 History SDOH Social Connections Get Together 3 [facility] Start: 1950 Sex Assigned At Not on file [facility] Start: 04-01-2021 End: 04-20-2023 Cigarettes smoked current (pack per day) - Reported 1 [facility] Start: 04-01-2021 End: 07-12-2022 Tobacco use and exposure Smokeless tobacco non-user [facility] Work Phone: Start: 07-02-2022 End: 07-12-2022 Exposure to SARS-CoV-2 (event) Not sure [facility] Work Phone: Start: 01-05-2022 End: 04-20-2023 Social connection and isolation panel [facility] Do you belong to any clubs or organizations such as hindu groups, unions, fraternal or athletic groups, or school groups? No [facility] Are you now , , , , never or living with a partner? [facility] How often to you hav e a drink containing alcohol? Monthly or less [facility] How many standard dr inks containing alcohol do you have on a typical day? 3 or 4 [facility] How often do you hav e 6 or more drinks on 1 occasion? Never [facility] How hard is it for y ou to pay for the very basics like food, housing, medical care, and heating Somewhat hard [facility] Adult Depression Screening Assessment 0 [facility] Work Phone: Do you feel stress - tense, restless, nervous, or anxious, or unable to sleep at night because your mind is troubled all the time - these days [OSQ] Not at all [facility] (I/We) worried wheth er (my/our) food would run out before (I/we) got money to buy more. Never true [facility] Medical Equipment Procedure Code Equipment Code Equipment Origin al Text Equipment Identifier Dates Port Implantable Power Port 6fr - [id number] Start: 08-28-2013 Clinical Notes 09-07-2017 to 10-20-2023 Telephone Encounter - Laquita Merida DEWAYNE - 08/22/2023 2:01 PM EDTPatient InstructionsRowena Capone BANDER AND CELLOPHANER MACHINE HELPER.SLAG WORKER - 07/12/2023 9:16 AM Gerald Capone BANDER AND CELLOPHANER MACHINE HELPER.SLAG WORKER - 01/17/2023 7:57 AM EDTPatient Instructions Note Date & Type Note Facility 10-20-2023 Note HNO ID: [id number] Author: Arnie Fraser MD Service: ? Author Type: Physician Type: Progress Notes Filed: 10/20/2023 9:13 AM Note Text: This note was created using Dragonfly List. Subjective Aleks Guerrier is a 73 year [...] BASIC METABOLIC PNL (more content not included)... [facility] 10-20-2023 Note HNO ID: [id number] Author: Arnie Fraser MD Service: ? Author [...] Dr. Rob Baig, ophthalmology. Dr. Leonidas Hunter, [place] [facility]. Medical/Family history review Reviewed and updated [...] Covid declined. Shingrix deferred. RSV information given. [facility] 08-22-2023 Miscellaneous Notes Patient has been identified [...] Laquita Merida LPN. documented in this encounter [facility] 07-12-2023 Note HNO ID: [id number] Author: Rowena Capone APRN.SLAG WORKER Service: ? Author Type: Nurse Practitioner Type: [...] VSL 09/12/2011 [facility] VAD W/SUBQ PORT/PUBLIC RELATIONS CONSULTANT CTR/PRPH INSJ 09/03/2014 Removal right IJ port [...] Health maintenance r (more content not included)... [facility] 07-12-2023 Instructions Rowena Capone APRN.SLAG WORKER - 07/12/2023 9:18 AM EDT Recombinant shingles vaccine (Shingrix) is recommended; 2 doses 2-6 months apart. Please read information, check with your insurance, and schedule vaccination at your local pharmacy. A prescription is not required. If you are certain you have coverage to receive this vaccine in the office, we can schedule this for you. documented in this encounter [facility] 07-12-2023 History of Present illness Narrative CC: [...] VSL 09/12/2011 [facility] VAD W/SUBQ PORT/PUBLIC RELATIONS CONSULTANT CTR/PRPH INSJ 09/03/2014 Removal right IJ port [...] activity was identified. 07/12/2023 by Rowena Capone APRN.SLAG WORKER - ACETAMINOPHEN 300 MG-CODEINE 60 MG TABLET 2. Need for influenza vaccination - ICD9: V04.81, ICD10: Z23 - INFLUENZA VACCINE, PRSV FREE, AGE 65+ YR, HIGH DOSE, QUADRIVALENT (FLUZONE HIGH-DOSE) Prescription instructions reviewed with patient as applicable. Potential red flag symptoms discussed with the patient. Reviewed appropriate action plan to take if red flag symptoms occur. Patient agreeable to treatment plan. Rowena Capone APRN.SLAG WORKER documented in this encounter [facility] 05-29-2023 Miscellaneous Notes Patient phones requesting refills as follows: Requested Prescriptions Pending Prescriptions Disp Refills predniSONE (DELTASONE) 10 mg tablet 90 tablet 0 Sig: Take 1 tablet by mouth once daily as needed (joint swelling). GUY-04/20/23 Labs-07/04/22 NOV-07/12/23 Please review and advise. Nancy Hedrick LPN documented in this encounter [facility] 04-20-2023 Note HNO ID: [id number] Author: Arnie Fraser MD Service: ? Author Type: Physician Type: Progress Notes Filed: 04/20/2023 9:28 AM Note Text: This note was created using Tricentisriter. Subjective Patient presents with: F/U 3 Month [...] Hernandez for v (more content not included)... [facility] 01-17-2023 Note HNO ID: [id number] Author: Rowena Capone APRN.SLAG WORKER Service: ? Author Type: Nurse Practitioner Type: [...] VSL 09/12/2011 [facility] VAD W/SUBQ PORT/PUBLIC RELATIONS CONSULTANT CTR/PRPH INSJ 09/03/2014 Removal right IJ port [...] No PHYSICAL EXAM (more content not included)... [facility] 01-17-2023 History of Present illness Narrative CC: [...] VSL 09/12/2011 [facility] VAD W/SUBQ PORT/PUBLIC RELATIONS CONSULTANT CTR/PRPH INSJ 09/03/2014 Removal right IJ port [...] activity was identified. 01/17/2023 by Rowena Capone APRN.SLAG WORKER - ACETAMINOPHEN 300 MG-CODEINE 60 MG TABLET [...] Rowena Capone APRN.CNP documented in this encounter [facility] 11-10-2022 Miscellaneous Notes Patient has been identified [...] Becky Cruz LPN documented in this encounter [facility] 10-10-2022 Instructions Rowena Capone APRN.CNP - 10/10/2022 [...] review all the medicines you take, even wxtn-rmn-zycvtia medicines. As you get older, the way [...] certain medical conditions. documented in this encounter [facility] 10-10-2022 History of Present illness Narrative Aleks Guerrier is a 72 year old male here for a Medicare Subsequent Annual Wellness Visit Health Risk Assessment In general, health is: Good Concerns with balance:Not at all Concerns with teeth or dentures:Not at all Concerns with sexual function:Not at all [place] anxious, stressed, angry, irritable, lonely, isolated, or [...] as PCP - General Outside specialists seen: [facility] Medical/Family history review Reviewed and updated problem [...] SEBASTIAN Finney APRN.CNP documented in this encounter [facility] 10-05-2022 Miscellaneous Notes PDMP website checked and [...] Laquita Merida LPN documented in this encounter [facility] 07-12-2022 Instructions Rowena Capone APRN.CNP - 07/12/2022 [...] this for you. documented in this encounter [facility] 07-12-2022 History of Present illness Narrative CC: [...] VSL 09/12/2011 [facility] VAD W/SUBQ PORT/PUBLIC RELATIONS CONSULTANT CTR/PRPH INSJ 09/03/2014 Removal right IJ port [...] Panel: No results found for: UQCANN, UQBNZL, AMV6OHJ, UQAMPH, UQMAMP, UQBUPRE, UQNORBUP, UQMTHD, UQEDDP, UQTRAM, [...] Rowena Capone APRN.CNP documented in this encounter [facility] 07-04-2022 Miscellaneous Notes Pt did not fill [...] Mala Cortes RN documented in this encounter [facility] 05-10-2022 Miscellaneous Notes PDMP website checked and [...] Laquita Merida LPN documented in this encounter [facility] 05-10-2022 Miscellaneous Notes Patient has been identified [...] Laquita Merida LPN documented in this encounter [facility] 05-06-2022 History of Present illness Narrative POPULATION HEALTH NAVIGATION OUTREACH Action/FYI unable to lm for pt to call to schedule [facility] to [facility] added notes to upcoming ov Pt identified by name and : NO Outreach Outcome/Action Unable to reach patient: Phone number not valid / voicemail full MyChart message sent Did you use a PCP flex slot to schedule this appointment? N/A Reason for Outreach Care Gap or Scheduling/Wellness visits Payer: Payor: HUMANA MEDICARE / Plan: [employer] / Product Type: HMO / Care Gap [...] 2022 2:01 PM documented in this encounter [facility] 04-15-2022 Instructions Rowena Capone APRN.CNP - 04/15/2022 9:27 AM EDT GET COLONOSCOPY SOON WITH DR. HERNANDEZ documented in this encounter [facility] 04-15-2022 History of Present illness Narrative CC: [...] VSL 09/12/2011 [facility] VAD W/SUBQ PORT/PUBLIC RELATIONS CONSULTANT CTR/PRPH INSJ 09/03/2014 Removal right IJ port [...] activity was identified. 04/15/2022 by Rowena Capone, BANDER AND CELLOPHANER MACHINE HELPER.SLAG WORKER 8. Encounter for screening for lung cancer [...] Rowena Capone APRN.CNP documented in this encounter [facility] documented as of this encounter (statuses as of 04/15/2022) [facility] History of Past illness Narrative* Problem Noted [...] of this encounter (statuses as of 05/06/2022) [facility] History of Past illness Narrative* Problem Noted [...] of this encounter (statuses as of 05/10/2022) [facility] History of Past illness Narrative* Problem Noted [...] of this encounter (statuses as of 05/10/2022) [facility] History of Past illness Narrative* Problem Noted [...] of this encounter (statuses as of 07/05/2022) [facility] History of Past illness Narrative* Problem Noted [...] of this encounter (statuses as of 07/12/2022) [facility] History of Past illness Narrative* Problem Noted [...] of this encounter (statuses as of 09/05/2022) [facility] [facility] Narrative* Problem Noted [...] of this encounter (statuses as of 10/05/2022) [facility] History of Past illness Narrative* Problem Noted [...] of this encounter (statuses as of 10/10/2022) [facility] Past illness Narrative* Problem Noted [...] of this encounter (statuses as of 11/11/2022) [facility] of Past illness Narrative* Problem Noted [...] of this encounter (statuses as of 01/17/2023) [facility] Past illness Narrative* Problem Noted [...] of this encounter (statuses as of 05/30/2023) [facility] of Past illness Narrative* Problem Noted [...] of this encounter (statuses as of 07/12/2023) [facility] Narrative* Problem Noted [...] of this encounter (statuses as of 07/15/2023) [facility] of Past illness Narrative* Problem Noted [...] of this encounter (statuses as of 08/23/2023) [facility] Diagnosis Essential hypertension- [...] esophagitis Esophageal reflux [facility] Diagnosis 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 note* Diagnosis Screening for colon cancer Special screening for malignant neoplasms, colon documented in this encounter [facility] note* Diagnosis Cervicalgia documented in this encounter [facility] note* Diagnosis Medicare annual wellness visit, subsequent- Primary Routine general medical examination at a health care facility Cervicalgia documented in this encounter [facility] note* Diagnosis Pure hypercholesterolemia documented in this encounter [facility] note* Diagnosis Essential hypertension- Primary Unspecified essential hypertension Cervicalgia Tobacco use disorder S/P ileal conduit (HCC) Ileostomy status Peripheral vascular disease, unspecified (HCC) Peripheral vascular disease, unspecified Encounter for drug screening Other specified examination High risk medications (not anticoagulants) long-term use Encounter for long-term (current) use of other medications Chronic bronchitis, unspecified chronic bronchitis type (HCC) documented in this encounter [facility] note* Diagnosis Cervicalgia documented in this encounter [facility] note* Diagnosis Cervicalgia- Primary Need for influenza vaccination Need for prophylactic vaccination and inoculation against influenza documented in this encounter [facility] note* Diagnosis Kidney insufficiency- Primary Unspecified disorder of kidney and ureter documented in this encounter [facility] note* Diagnosis Cervicalgia documented in this encounter [facility] for referral (narrative)* Outpatient Procedure (Routine) - Pending Review Specialty Diagnoses / Procedures Referred By Sylvia michael Referred To Contact [facility] Diagnoses Screening for colon cancer Procedures COLONOSCOPY SCREENING COLONOSCOPY FLX DX W/COLLJ SPEC WHEN PFRMD Arnie Fraser MD [address] [place] [address] [facility] [address] [place] [id number] Referral ID Status Reason Start Date Expiration Date Visits Requested Visits Authorized [id number] Pending Review Auto-Generat ed Referral 08/31/2022 08/31/2023 1 1 [facility] Advance Directives No Advanced Directives Records FoundDocuments on File Type Date Recorded 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 Advance Directive(s) 08/24/2016 12:28 PM [...] or prosecute any alcohol or drug abuse patient.[facility] the event this information is protected by the Federal Confidentiality of Alcohol and Drug Abuse Patient Records regulations: The Federal rules restrict any use of the information to criminally investigate or prosecute any alcohol or drug abuse patient.[facility] the event this information is protected by the Federal Confidentiality of Alcohol and Drug Abuse Patient Records regulations: The Federal rules restrict any use of the information to criminally investigate or prosecute any alcohol or drug abuse patient.[facility] the event this information is protected by the Federal Confidentiality of Alcohol and Drug Abuse Patient Records regulations: The Federal rules restrict any use of the information to criminally investigate or prosecute any alcohol or drug abuse patient.[facility] the event this information is protected by the Federal Confidentiality of Alcohol and Drug Abuse Patient Records regulations: The Federal rules restrict any use of the information to criminally investigate or prosecute any alcohol or drug abuse patient.[facility] the event this information is protected by the Federal Confidentiality of Alcohol and Drug Abuse Patient Records regulations: The Federal rules restrict any use of the information to criminally investigate or prosecute any alcohol or drug abuse patient.[facility] the event this information is protected by the Federal Confidentiality of Alcohol and Drug Abuse Patient Records regulations: The Federal rules restrict any use of the information to criminally investigate or prosecute any alcohol or drug abuse patient.[facility] the event this information is protected by the Federal Confidentiality of Alcohol and Drug Abuse Patient Records regulations: The Federal rules restrict any use of the information to criminally investigate or prosecute any alcohol or drug abuse patient.[facility] the event this information is protected by the Federal Confidentiality of Alcohol and Drug Abuse Patient Records regulations: The Federal rules restrict any use of the information to criminally investigate or prosecute any alcohol or drug abuse patient.[facility] the event this information is protected by the Federal Confidentiality of Alcohol and Drug Abuse Patient Records regulations: The Federal rules restrict any use of the information to criminally investigate or prosecute any alcohol or drug abuse patient.[facility] the event this information is protected by the Federal Confidentiality of Alcohol and Drug Abuse Patient Records regulations: The Federal rules restrict any use of the information to criminally investigate or prosecute any alcohol or drug abuse patient.[facility] the event this information is protected by the Federal Confidentiality of Alcohol and Drug Abuse Patient Records regulations: The Federal rules restrict any use of the information to criminally investigate or prosecute any alcohol or drug abuse patient.[facility] the event this information is protected by the Federal Confidentiality of Alcohol and Drug Abuse Patient Records regulations: The Federal rules restrict any use of the information to criminally investigate or prosecute any alcohol or drug abuse patient.[facility] the event this information is protected by the Federal Confidentiality of Alcohol and Drug Abuse Patient Records regulations: The Federal rules restrict any use of the information to criminally investigate or prosecute any alcohol or drug abuse patient.[facility] the event this information is protected by the Federal Confidentiality of Alcohol and Drug Abuse Patient Records regulations: The Federal rules restrict any use of the information to criminally investigate or prosecute any alcohol or drug abuse patient.[facility] Reason for Visit (unrecogniz ed section and [...] Care Teams (unrecognized sec tion and content) Board Design Engineer Relationship Specialty Start Date End Date Arnie Fraser MD [address] [place] [address] PCP - General 11/26/09 Board Design Engineer Relationship Specialty Start Date End Date Arnie Fraser MD [address] [place] [address] PCP - General 11/26/09 Board Design Engineer Relationship Specialty Start Date End Date Arnie Fraser MD [address] [facility] [place] [address] PCP - General 11/26/09 Board Design Engineer Relationship Specialty Start Date End Date Arnie Fraser MD [address] [facility] [place] [place] [address] PCP - General 11/26/09 Board Design Engineer Relationship Specialty Start Date End Date Arnie Fraser MD [address] [facility] [place] [address] PCP - General 11/26/09 Board Design Engineer Relationship Specialty Start Date End Date Arnie Fraser MD [address] [place] [address] PCP - General 11/26/09 Board Design Engineer Relationship Specialty Start Date End Date Arnie Fraser MD [address] [place] [address] PCP General 11/26/09 Board Design Engineer Relationship Specialty Start Date End Date Arnie Fraser MD [address] [place] [address] PCP General 11/26/09 Board Design Engineer Relationship Specialty Start Date End Date Arine Fraser MD [address] [place] [address] [facility] 11/26/09 Board Design Engineer Relationship Specialty Start Date End Date Arnie Fraser MD [address] [place] [address] [facility] 11/26/09 Board Design Engineer Relationship Specialty Start Date End Date Arnie Fraser MD [address] [place] [address] [facility] 11/26/09 Board Design Engineer Relationship Specialty Start Date End Date Arnie Fraser MD [address] [place] [address] [facility] General 11/26/09 (unrecognized sect ion and content) [...] BE BASED ON THE PRIMARY CLINICAL RECORDS. [facility] CenterPowelectrics [facility]. provides no warranty or guarantee of the accuracy or completeness of information in this document.
--- NOTE | 2023-12-29 07:00 | HP.PCM_ITS ---
History and Physical Date of Admission: 12/29/23 Visit Reasons: DISCUSS CAROTID RESULTS COLONOSCOPE SCREENING Chief Complaint: yearly PAD/ AAA and c-scope Single Stayer Operator Required: No Is patient in pain?: No Allergies sulfamethoxazole [From Bactrim] Adverse Reaction (Verified 12/13/23 09:24) Othertrimethoprim [From Bactrim] Adverse Reaction (Verified 12/13/23 09:24) Other Medications acetaminophen 300 mg-codeine 60 mg tablet 1 ea PO Q4H PRN PRN Pain 07/22/13 [History Confirmed 06/29/21] ibuprofen 600 mg tablet 800 mg PO TID PRN PRN Swelling 07/22/13 [History Confirmed 06/29/21] gabapentin 300 mg capsule 300 mg PO 5X/DAY 03/07/16 [History Confirmed 06/29/21] tamsulosin 0.4 mg capsule 0.4 mg PO DAILY 03/07/16 [History Confirmed 06/29/21] atorvastatin 20 mg tablet 20 mg PO DAILY 05/27/21 [History Confirmed 06/29/21] ibuprofen 800 mg tablet 800 mg PO PRN PRN Pain 05/27/21 [History Confirmed 06/29/21] prednisone 10 mg tablet 10 mg PO PRN PRN Allergy Symptoms 05/27/21 [History Confirmed 06/29/21] clopidogrel 75 mg tablet See Rx Instructions .Route .COMPLEX #90 tabs 11/14/23 [Rx] amlodipine 10 mg tablet 10 mg PO 12/13/23 [History Confirmed 12/13/23] lisinopril 20 mg tablet 20 mg PO 12/13/23 [History Confirmed 12/13/23] PFSH Medical History AAA (abdominal aortic aneurysm) BPH (benign prostatic hyperplasia) Carotid artery disease GERD (gastroesophageal reflux disease) HTN (hypertension) PAD (peripheral artery disease) PAD (peripheral artery disease) Personal history of bladder cancer Personal history of colon cancer Personal history of prostate cancer Surgical History History of bladder surgery History of radical prostatectomy History of total cystectomy S/P arteriogram of extremity S/P colectomy S/P colonoscopy S/P peripheral artery angioplasty Social History Smoking Status: Current every day smoker tobacco type: cigarettes HPI HPI HPI: 73-year-old gentleman. On December 01, 2023 he had aortic ultrasound performed. Mid abdominal aortic aneurysm measuring 3.14 x 3.31 cm in diameter. Previously it measured 3.02 x 3.07 cm on April 27, 2021. As noted below he has had updated noninvasive lower extremity studies on November 2023 and carotid duplex exam. The carotid exam demonstrates less than 50% stenosis of the right internal carotid artery and 50 to 69% stenosis of the left internal carotid artery. Lower extremity study demonstrates moderately severe disease bilaterally. I have personally reviewed and assisted in interpreting these evaluations. The patient is also being referred by Dr. Arnie Chiang for consideration of a surveillance colonoscopy. July 25, 2013 because of a proximal rectal carcinoma I assisted him with a laparoscopic appendectomy and a laparoscopic converted to open low anterior resection of the colon with abscess drainage. The tumor measured 7 x 5 x 1.5 cm was well differentiated it invaded the muscularis propria into the subserosal fat but but did not extend to the serosal surface. 5 out of 29 lymph nodes were positive. 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 Once again the patient's bilateral extremity peripheral arterial occlusive disease is stabilized with angioplasty and stenting. He has had multiple previous bilateral iliac endovascular interventions. Unfortunately he continues to smoke cigarettes and over many years has no intention of ceasing Date of Procedure: 06/21/21 Pre-Operative Diagnosis: rECURRENT BILATERAL EXTREMITY MULTISEGMENTAL PERIPHERAL VASCULAR OCCLUSIVE DISEASE Post-Operative Diagnosis: Occlusion right external iliac artery, in-stent stenosis right common iliac artery, in-stent stenosis left common iliac artery, in-stent stenosis left external iliac artery Surgery/Procedure Performed:: Abdominal pelvic arteriogram with right external iliac 6 x 150 mm EverCross angioplasty and 8 x 150 ever flex stenting with subsequent 7 x 200 mm ever cross angioplasty Left common iliac and external iliac 7 x 200 ever cross angioplasty The patient has no particular complaints today. He states that he is generalized slowing down. He is on no chronic narcotic medication. He claims he is able to walk around the [employer]. He denies any abdominal problems. He claims his ileostomy is functioning well from his radical cystectomy. Denies any GI problems. He has had no focal neurologic issues. December 01, 2023 Reason For Study: PAD Procedure A bilateral lower extremity continuous wave Doppler with analog waveform analysis,segmental pressures,and ankle brachial indexes without exercise. Left Segmental Pressures Left brachial= 145mmHg. Left thigh = 116mmHg. Left calf = 91mmHg. Left posterior tibial artery = 78mmHg. Left dorsalis pedis artery = 64mmHg. Left digit = 65 mmHg. The left dorsalis pedis waveforms are monophasic. The left posterior tibial artery waveforms are biphasic. Right Segmental Pressures Right brachial= 139mmHg. Right thigh = 122mmHg. Right calf = 94mmHg. Right posterior tibial artery = 106mmHg. Right dorsalis pedis artery = 94mmHg. Right digit = 70 mmHg. The right dorsalis pedis waveforms are biphasic. The right posterior tibial artery waveforms are biphasic. Indices The right ankle brachial index by the dorsalis pedis is 0.65. The right ankle brachial index by the posterior tibial artery is 0.73. The right digital-brachial index is 0.48. The left ankle brachial index by the dorsalis pedis is 0.44. The left ankle brachial index by the posterior tibial artery is 0.54. The left digital-brachial index is 0.45. VL/Lower Ext Art Exam w/o Exercis Interpretation Summary Abnormal right lower extremity posterior tibialis and dorsalis pedis ankle- brachial indices at rest at 0.73 and 0.65 respectively with biphasic Doppler waveforms consistent with moderately severe arterial occlusive disease. Digital waveforms are noted to bleed depressed consistent with significant distal small vessel disease. The right digital brachial index is 0.48 Abnormal left lower extremity posterior tibialis and dorsalis pedis ankle- brachial indices of 0.54 and 0.44 respectively with biphasic waveform of the posterior tibialis with a monophasic phasic waveform of the dorsalis pedis. This approaches severe disease. Digital waveforms are significantly depressed consistent with significant small vessel disease. The left digital brachial index is 0.45 Findings do not show deterioration from a previous examination of July 13, 2020 Ordering Physician: Ochoa Hernandez Referring Physician: MD Berhane Chiang Performed By: Darline Valadez RVT December 01, 2023 Reason For Study: Carotid artery disease Rt. Velocities/BP Lt. Velocities/BP Prox CCA 73/9.7 cm/sec. Prox CCA 81.4/15.1 cm/sec. Mid CCA 64.5/11.6 cm/sec. Mid CCA 64.2/12.6 cm/sec. Dist CCA 57.9/13.5 cm/sec. Dist CCA 60.5/11.4 cm/sec. Prox ICA 94.9/12.6 cm/sec. Prox ICA 102.8/17 cm/sec. Mid ICA 124.7/29.8 cm/sec. Mid ICA 166.7/42.2 cm/sec. Dist ICA 72.8/22.5 cm/sec. Dist ICA 80.9/11.5 cm/sec. Rt. ICA/CCA = 1.93. Lt. ICA/CCA = 2.60. Prox ECA 218.5/8.6 cm/sec. Prox ECA 177/11.1 cm/sec. Rt. Vert. 30.8/8.1 cm/sec. Lt. Vert. 47.6/10.2 cm/sec. Right Extracranial There is heterogeneous, irregular atherosclerotic plaque noted in the right com mon carotid artery. There is heterogeneous, irregular atherosclerotic plaque noted in the right internal carotid artery. There is heterogeneous, irregular atherosclerotic plaque noted in the right ext ernal carotid artery. Antegrade flow is noted in the right vertebral artery. Left Extracranial There is heterogeneous, irregular atherosclerotic plaque noted in the left common carotid artery. There is heterogeneous, irregular atherosclerotic plaque noted in the left internal carotid artery. There is heterogeneous, irregular atherosclerotic plaque noted in the left external carotid artery. Antegrade flow is noted in the left vertebral artery. Procedure This is a Carotid Duplex examination using B-mode, color flow and specral Doppler. Carotid Duplex 14[address]. Exam performed in department. VL/Carotid Duplex Ultrasound Interpretation Summary Irregular calcific plaque with shadowing at the proximal right internal carotid artery with less than 50% stenosis but very close to that range. Greater than 50% stenosis right external carotid artery Irregular calcific plaque with shadowing at the proximal left internal carotid artery with 50 to 69% stenosis. Less than 50% stenosis left external carotid artery Patent antegrade vertebral arteries bilaterally Findings suggest progression of stenosis of the left internal carotid artery from the previous examination of August 06, 2021 Ordering Physician: Ochoa Hernandez Referring Physician: Arnie Chiang M.D. Performed By: Darline Valadez RVT General General: No weight change, appetite, fatigue, colon cancer, breast cancer or weakness HEENT HEENT: No difficulty swallowing, eye injury, eye surgery, swollen glands or hoarseness Endo Endocrine: No thyroid disease, diabetes mellitus, thyroid cancer, Hair loss, heat intolerance or cold intolerance Skin Skin: No rash or changing moles Musc Musculoskeletal: Yes arthritis and rheumatoid arthritis; No back problems, gout or joint pain Cardio Cardiovascular: Yes high blood pressure; No murmur, pacemaker, heart disease, atrial fibrillation, heart attack, heart stent, palpitations, shortness of breat with exertion or chest pain Psych Psychiatric: No depression, anxiety or hearing voices Resp Respiratory: Yes shortness of breath, No sleep apnea, No cough, Yes COPD, No asthma, No emphysema and No wheezing Gastro Gastrointestinal: No abdominal pain, No nausea or vomiting, No diarrhea, No constipation, No blood in stool, No acid reflux, No hemorrhoids, No ulcers, No gallbladder problem and No black,tarry stools Panchito Hematologic: Yes blood thinners, No blood disorders, No bleeding, No anemia and No blood clots Neuro Neurologic: Yes numbness, Yes tingling and No weakness Exam Const General: cooperative, comfortable and no acute distress Nutritional Appearance: underweight Other: Very heavy odor of tobacco. Dense tobacco staining fingers of the right hand. Patient appears older than stated age [facility] Head: normal to inspection Neck Other: Cervical kyphosis noted. Chest Other: Increased anterior posterior diameter. Resp Other: Very poor respiratory excursion. Breath is difficult to Cardio Rate: regular rate Rhythm: regular rhythm Other: Bilateral radials 3+. Bilateral femorals 3+. Bilateral popliteals DPs and PTs not palpable GI Other: Soft, loop ileostomy right lower quadrant well-healed midline incision, no hepatosplenomegaly no masses. Musc Other: Cervical kyphosis noted. Skin Other: Marked dependent rubor from the knees distally. Digital atrophy. Markedly hypertrophic nails particularly of the great toenails. Neuro General: patient alert, patient awake and patient oriented x3 Extrem General: no calf tenderness Other: Chronic ischemic changes bilateral feet. Hair loss. Dependent rubor. Diminished venous filling. Psych Appearance: grossly normal Assessment and Plan Assessment and Plan (1) Carotid artery disease: Status: Acute Qualifiers: Carotid artery disease type: stenosis Laterality: bilateral Qualified Code(s): I65.23 - Occlusion and stenosis of bilateral carotid arteries Plan: Less than 50% stenosis right internal carotid. 50 to 69% stenosis of the left internal carotid. Asymptomatic. Will plan follow-up carotid duplex imaging at 1 year. (2) PAD (peripheral artery disease): Status: Acute Plan: Moderately severe bilateral extremity peripheral arterial occlusive disease. Stable. Patient is at high risk for intervention. Remain with conservative recommendations at this time. (3) Personal history of colon cancer: Status: Acute Plan: The patient's most recent colonoscopy was June 2017. Had a patent colorectal anastomosis at that time and diverticular disease. Recommend follow- up colonoscopy. He is aware of the technique, benefit, risk and alternatives. We will schedule and proceed as noted. (4) AAA (abdominal aortic aneurysm): Status: Acute Qualifiers: Presence of rupture: without rupture Qualified Code(s): I71.4 - Abdominal aortic aneurysm, without rupture Plan: 3.3 cm infrarenal abdominal aortic aneurysm. Stable. Plan aortic duplex ultrasound 2 years. Copy: Dr. Arnie Hernandez M.D., F.A.C.S. I have examined the patient and the H&P has been reviewed. There are no clinical changes since date of exam. Ochoa Hernandez M.D., F.A.C.S.
[2023-12-29] MEDS: Lactated Ringers 1,000 ML 15 ML IV (07:17)
--- NOTE | 2023-12-29 08:00 | COLBX_PTH ---
PATHOLOGY RESULTS PATIENT: LELA PHAM LOC: EN U#:[id number] AGE/SX: 73/M ROOM: RE12/29/[address]: Dr. Ochoa Hernandez MD : 1950 BED: DIS: 12/29/2023 SPEC #: [id number] RECD: 12/29/23 12:47 STATUS: EMMA LATHAMZaid #: [id number] HILARY: 12/29/23 08:[address]: Ochoa Hernandez DEPT: SURGICAL PATHOLOGY RECD BY: Bhavya Cooper ENTERED: 12/29/23 12:48 SP TYPE: COLON BX OTHR DR: Dr. Arnie Chiang MD Tissues: Transverse colon Descending colon Procedures: Surgery Specimen Level IV HEADER OPERATION: Colonoscopy, polypectomy, hemostasis clip PRE-OP DIAGNOSIS: History of colon cancer TISSUE SUBMITTED: A - Mid transverse polyp, B - Descending polyp MICROSCOPIC DIAGNOSIS A. Mid transverse colon polyp, polypectomy: Fragments of tubular adenoma. B. Descending colon polyp, polypectomy: Fragments of tubular adenoma. MARITZA:nichelle 01/01/2024 MICROSCOPIC DESCRIPTION Slides are reviewed. GROSS DESCRIPTION A - Received in fixative is one container labeled with the patient's name and designated mid transverse polyp. The specimen consists of two irregular fragments of light camejo soft tissue that in aggregate measure 0.6 x 0.5 x 0.1 cm. The specimen is totally submitted in one cassette. B - Received in fixative is one container labeled with the patient's name and designated descending polyp. The specimen consists of two irregular fragments of light camejo soft tissue measuring 0.5 x 0.5 x 0.2 cm and 0.2 x 0.2 x 0.1 cm. The specimen is totally submitted in one cassette. / MARITZA:nichelle 12/29/2023 TC:1 CPT: 20891 x2
--- NOTE | 2023-12-29 08:22 | OP.COLON_ITS ---
Patient Name: Aleks Guerrier Procedure Date: 12/29/2023 7:49 AM Date of : 1950 Age: 73 Procedure: Colonoscopy Indications: High risk colon cancer surveillance: Personal history of colon cancer Providers: Ochoa Hernandez MD Referring MD: Arnie Chiang Medicines: See the Anesthesia note for documentation of the administered medications Patient Profile: Last Colonoscopy: June 2017. Complications: No immediate complications. Procedure: Pre-Anesthesia Assessment: - Prior to the procedure, a History and Physical was performed, and patient medications and allergies were reviewed. The patient's tolerance of previous anesthesia was also reviewed. The risks and benefits of the procedure and the sedation options and risks were discussed with the patient. All questions were answered, and informed consent was obtained. Prior Anticoagulants: The patient has taken no anticoagulant or antiplatelet agents. ASA Grade Assessment: III - A patient with severe systemic disease. After reviewing the risks and benefits, the patient was deemed in satisfactory condition to undergo the procedure. After I obtained informed consent, the scope was passed under direct vision. Throughout the procedure, the patient's blood pressure, pulse, and oxygen saturations were monitored continuously. The Colonoscope was introduced through the anus and advanced to the terminal ileum, with identification of the appendiceal orifice and IC valve. The colonoscopy was performed without difficulty. The patient tolerated the procedure well. The quality of the bowel preparation was good. The ileocecal valve and the appendiceal orifice were photographed. Scope In: 7:54:18 AM Scope Withdrawal Time 0 hours 15 minutes 56 seconds Scope Out: 8:14:30 AM Total Procedure Duration Time 0 hours 20 minutes 12 seconds Findings: Hemorrhoids were found on perianal exam. An 8 mm polyp was found in the mid transverse colon. The polyp was sessile. The polyp was removed with a hot snare. Resection and retrieval were complete. To prevent bleeding post-intervention, one hemostatic clip was successfully placed. There was no bleeding at the end of the procedure. An 8 mm polyp was found in the mid descending colon. The polyp was sessile. Polypectomy was attempted, initially using a hot snare. Polyp resection was incomplete with this device. This intervention then required a different device and polypectomy technique. The polyp was removed with a cold biopsy forceps. Resection and retrieval were complete. To prevent bleeding post-intervention, one hemostatic clip was successfully placed. There was no bleeding at the end of the procedure. Multiple diverticula were found in the sigmoid colon and descending colon. There was evidence of a prior end-to-end colo-colonic anastomosis in the recto-sigmoid colon. This was patent and was characterized by healthy appearing mucosa. Impression: - Hemorrhoids found on perianal exam. - One 8 mm polyp in the mid transverse colon, removed with a hot snare. Resected and retrieved. Clip was placed. - One 8 mm polyp in the mid descending colon, removed with a cold biopsy forceps. Resected and retrieved. Clip was placed. - Diverticulosis in the sigmoid colon and in the descending colon. - Patent end-to-end colo-colonic anastomosis, characterized by healthy appearing mucosa. At 8cm from anorectal verge Recommendation: - Discharge patient to home. - Resume previous diet. - Continue present medications. - Repeat colonoscopy in 5 years for surveillance. - Telephone my office for pathology results in 1 week. Procedure Code(s): --- Professional --- 18967, Colonoscopy, flexible; with removal of tumor(s), polyp(s), or other lesion(s) by snare technique 11779, 59, Colonoscopy, flexible; with biopsy, single or multiple Diagnosis Code(s): --- Professional --- Z85.038, Personal history of other malignant neoplasm of large intestine K64.9, Unspecified hemorrhoids D12.3, Benign neoplasm of transverse colon (hepatic flexure or splenic flexure) D12.4, Benign neoplasm of descending colon Z98.0, Intestinal bypass and anastomosis status K57.30, Diverticulosis of large intestine without perforation or abscess without bleeding CPT copyright 2021 [employer]. All rights reserved. The codes documented in this report are preliminary and upon obstetrics tech review may be revised to meet current compliance requirements. Ochoa Hernandez MD 12/29/2023 8:21:46 AM This report has been signed electronically. Number of Addenda: 0 Note Initiated On: 12/29/2023 7:49 AM
--- NOTE | 2023-12-29 08:22 | OP.CCLET_ITS ---
12/29/2023 Arnie Chiang [address] [place] [address] Re : Colonoscopy procedure for Aleks Guerrier Dear Dr. Chiang This procedure was performed on Friday, December 29, 2023. My impressions and recommendations are as follows: Impressions : - Hemorrhoids found on perianal exam. - One 8 mm polyp in the mid transverse colon, removed with a hot snare. Resected and retrieved. Clip was placed. - One 8 mm polyp in the mid descending colon, removed with a cold biopsy forceps. Resected and retrieved. Clip was placed. - Diverticulosis in the sigmoid colon and in the descending colon. - Patent end-to-end colo-colonic anastomosis, characterized by healthy appearing mucosa. At 8cm from anorectal verge Recommendations : - Discharge patient to home. - Resume previous diet. - Continue present medications. - Repeat colonoscopy in 5 years for surveillance. - Telephone my office for pathology results in 1 week. My findings are described in the full procedure note, which is enclosed. If I can be of further assistance, please feel free to contact me at Doctor phone number(s): Work: . Sincerely, Ochoa Hernandez MD 12/29/2023 8:21:46 AM This report has been signed electronically.
== END 2023-12-29 09:17 | disposition home or self-care (01) ==
LOC: EN 06:54 → AC 06:54
PROVIDERS: PCP Internal Medicine; Referring Provider Internal Medicine; Visit Provider Surgery
PROC: 0DJD8ZZ Inspection of Lower Intestinal Tract, Via Natural or Artificial Opening Endoscopic (ICD-10-PCS; CPT 45378; principal; 2023-12-29 07:55)
DX: Z12.11 Encounter for screening for malignant neoplasm of colon (principal); J44.9 Chronic obstructive pulmonary disease, unspecified; I73.9 Peripheral vascular disease, unspecified; I71.43 Infrarenal abdominal aortic aneurysm, without rupture; F17.210 Nicotine dependence, cigarettes, uncomplicated; Z95.5 Presence of coronary angioplasty implant and graft; K57.30 Diverticulosis of large intestine without perforation or abscess without bleeding; Z79.899 Other long term (current) drug therapy; I10 Essential (primary) hypertension; K21.9 Gastro-esophageal reflux disease without esophagitis; Z90.49 Acquired absence of other specified parts of digestive tract; I65.23 Occlusion and stenosis of bilateral carotid arteries; Z85.038 Personal history of other malignant neoplasm of large intestine; K64.4 Residual hemorrhoidal skin tags; Z98.0 Intestinal bypass and anastomosis status; D12.3 Benign neoplasm of transverse colon; D12.4 Benign neoplasm of descending colon
CPT/HCPCS: 45380; 45385; 88305; J7120; J2405

== ENCOUNTER 2024-04-16 07:53 | Emergency (ER) | payer MEDICARE, SELFPAY ==
[2024-04-16 07:54] VITALS: BP 136/72; PULSE 113; RESP 14; TEMP 36.2; O2SAT 98
--- NOTE | 2024-04-16 08:09 | CT_ITS ---
INDICATION: Epigastric pain. Nausea and vomiting. Poor renal function. EXAMINATION: CTA CHEST, ABDOMEN AND PELVIS WITH CONTRAST - TECHNIQUE: A CTA of the chest, abdomen, and pelvis is obtained with sagittal and coronal reconstructed MIP views. Three-dimensional surface rendered sequence of the thoracic and abdominal aorta was obtained. A radiation dose optimization technique was used for this scan. 75 mL of Isovue-370. Oral contrast: None. COMPARISON: None. FINDINGS: CT CHEST: THORACIC AORTA: Atherosclerotic calcification of the aortic arch with evidence of ulcerated plaques and irregular mural thrombi at the level of the aortic arch and descending thoracic aorta. ABDOMINAL AORTA: No aneurysm or dissection. Irregular mural thrombus throughout the course of the aorta. There is evidence of a saccular infrarenal abdominal aortic aneurysm with a transverse dimension of 3.7 cm. Atherosclerotic plaque formation at the origin of the celiac artery and superior mesenteric artery with mild degree of stenosis. There is evidence of a stenting of both common iliac arteries with extensive calcific plaque formation. LUNGS: There is a moderate-sized left pleural effusion with compressive atelectasis at the left lung base. Mild degree of atelectasis in the lingular segment of the left upper lobe abutting the left major fissure. MEDIASTINUM: The thyroid gland is normal. No mediastinal or hilar adenopathy. HEART: Heart is normal size. No pericardial effusion. Coronary artery calcification. CT ABDOMEN AND PELVIS: LIVER: The liver enhances homogeneously. No masses identified. GALLBLADDER: The CBD is normal. Normal gallbladder. SPLEEN: Normal. PANCREAS: No masses or inflammation. ADRENAL GLANDS: Normal. KIDNEYS AND URETERS: Marked degree of right renal atrophy with a marked degree of volume hydronephrosis and the right hydroureter. Left renal cyst. This measures 1.9 cm x 1.7 cm. There is evidence of a ileal conduit in the anterior right lower quadrant. STOMACH: Normal. SMALL BOWEL: Fluid-filled mildly distended small bowel loops down to the distal ileum. MESENTERY: No mesenteric inflammation. No ascites. COLON: No significant diverticulosis, masses or inflammation. Surgical anastomosis is seen in the region of the mid transverse colon. The patient is status post appendectomy. Moderate amount of fecal material is seen throughout the colon. IVC: Normal. RETROPERITONEUM: No retroperitoneal lymphadenopathy. PELVIC STRUCTURES: The bladder is not seen. Small amount of free fluid is seen in the pelvis. SOFT TISSUE CHEST: The extrathoracic soft tissues are normal. BONES: No fractures or significant degenerative disease. CT/CTA Chst, Abd, Pel W and/or WO IMPRESSION: Marked degree of calcific plaque of the thoracic and abdominal aorta with evidence of ulcerated plaques and irregular mural thrombus. Infrarenal abdominal aortic aneurysm with a transverse dimension of 3.7 cm. Marked degree of right hydronephrosis and hydroureter down to the ileal loop and marked atrophy of the right kidney. Fluid filled and mildly distended small bowel loops. Electronically Signed: David Gonzalez MD at 9:25 EDT ,
[2024-04-16] MEDS: Ondansetron 4 MG/2 ML Vial IV (08:11)
[2024-04-16] MEDS: Morphine 4 MG/ML Syringe IV (08:11)
--- NOTE | 2024-04-16 08:11 | EDS_ITS ---
HPI HPI - GI History of Present Illness Chief Complaint: Abd Pain Narrative Narrative: 74-year-old male presenting with abdominal pain. This is just above his umbilicus. Patient states it started last evening at about 9 PM. Patient states it started relatively close to the time he had a Ensure drink. He states prior to that he had had a [employer] hamburger at about 5:00 and had any problems. He is nauseous and describes the pain as cutting. He also feels at times it is sharp. It is constant but waxes and wanes in severity. He states he broke out into a sweat at about 1 AM. Denies constipation or diarrhea. Denies fever. Patient states he is not a drinker. Patient does have a history of a AAA. He does not have an appendix. He has had a colectomy as well. Denies history of obstructions in the past. [facility] Medical History (Updated 12/27/23 @ 09:44 by Dayna Troy) Colostomy in place Wears glasses Cancer Alcohol use History of steroid therapy Rheumatoid arthritis Anemia High cholesterol Easy bruising Back pain Injury of head and neck Smoker COPD (chronic obstructive pulmonary disease) Neuropathy History of stress test Personal history of prostate cancer Personal history of bladder cancer Carotid artery disease PAD (peripheral artery disease) BPH (benign prostatic hyperplasia) HTN (hypertension) Personal history of colon cancer GERD (gastroesophageal reflux disease) AAA (abdominal aortic aneurysm) PAD (peripheral artery disease) Home Medications ?Medication ?Instructions ?Recorded ?Last Taken ?Type acetaminophen 300 mg-codeine 60 mg 1 ea PO Q4H PRN PRN Pain 07/22/13 07/03/19 History tablet gabapentin 300 mg capsule 300 mg PO TID 03/07/16 12/29/23 History atorvastatin 20 mg tablet 20 mg PO DAILY 05/27/21 12/27/23 History ibuprofen 800 mg tablet 800 mg PO PRN PRN Pain 05/27/21 Unknown History prednisone 10 mg tablet 10 mg PO PRN PRN Allergy Symptoms 05/27/21 Unknown History clopidogrel 75 mg tablet See Rx Instructions .Route 11/14/23 12/25/23 Rx .COMPLEX #90 tabs amlodipine 10 mg tablet 10 mg PO DAILY 12/13/23 12/29/23 History lisinopril 20 mg tablet 20 mg PO DAILY 12/13/23 12/29/23 History multivitamin 1 tab PO DAILY 12/27/23 12/27/23 History ondansetron 4 mg disintegrating 4 mg PO Q8H PRN PRN Nausea #10 tabs 04/16/24 Unknown Rx tablet Allergy/AdvReac Type Severity Reaction Status Date / Time sulfamethoxazole (From AdvReac Other Verified 04/16/24 07:53 Bactrim) trimethoprim (From Bactrim) AdvReac Other Verified 04/16/24 07:53 Surgical History (Updated 12/27/23 @ 09:44 by Dayna Troy) History of ileal conduit Hx of surgical procedure History of total cystectomy History of radical prostatectomy S/P arteriogram of extremity History of bladder surgery S/P peripheral artery angioplasty S/P colonoscopy S/P colectomy Social History Smoking Status: Current every day smoker tobacco type: cigarettes EXAM Physical Exam Const Vital Signs: 04/16/24 07:54 04/16/24 09:53 04/16/24 10:52 Temperature 97.1 F L Temperature Source Temporal Pulse Rate 113 H 82 81 Respiratory Rate 14 18 18 Blood Pressure 136/72 H 161/77 H 133/70 H Blood Pressure Mean 93 105 91 Pulse Ox 98 98 96 Oxygen Delivery Method Room Air Room Air Room Air 04/16/24 11:00 Temperature 98 F Temperature Source Pulse Rate 71 Respiratory Rate 18 Blood Pressure 133/80 H Blood Pressure Mean 97 Pulse Ox 99 Oxygen Delivery Method Positive well nourished General Appearance ED: NAD; Negative for pallor HEENT Reports moist mucous membranes normocephalic and atraumatic Eyes General Eye ED: Negative for scleral icterus Resp normal respiratory effort Cardio regular rate Rate: tachycardic GI GI Narrative: Tenderness to palpation just above the umbilicus in the midline. Negative Pastor sign. Neuro CN's II-XII intact bilaterally and moves all extremities Sensorium / Orientation: alert, oriented to person, oriented to place and oriented to time Motor Exam: strength 5/5 throughout Psych mental status grossly normal Skin General Skin Exam: Negative for jaundice or pallor MDM MDM MDM Narrative Medical decision making narrative: Patient presenting with abdominal pain it is just above the umbilicus in the midline. Patient presenting with right flank pain. Differential includes colitis, diverticulitis, gastritis, pancreatitis, acute cholecystitis, constipation, appendicitis, UTI, pyelonephritis, calculi, ureteral calculi, obstruction, malignancy, dehydration, electrolyte abnormalities, aortic dissection. Patient medicated morphine, Zofran. CBC shows normal white blood cell count 10.9. Hemoglobin 13.7. Platelets are elevated 471. Creatinine 2.02 which is elevated over the patient's previous which was 1.71 on 01/02/2024 as noted on [facility]. LFTs are normal. Lipase is normal. CT angiogram of the chest abdomen pelvis was obtained to rule out dissection. It is noted that the patient has severe hydronephrosis on the right and hydroureter. This was noticed on previous CT 01/30/2024 and is not new. Patient was given Dilaudid as he still continued have pain. But at 11:05 AM the patient is currently pain- free and states he took a nap. Discussed all findings with the patient. I feel he stable for discharge. Return precautions were discussed. Impression: 1. Abdominal pain 2. CKD Lab Data Attestation: I reviewed the patient's lab results. Labs: Laboratory Results - last 24 hr 04/16/24 08:02 WBC 10.9 RBC 4.79 Hgb 13.7 Hct 43.6 MCV 91.0 MCH 28.6 MCHC 31.4 L RDW Std Deviation 51.2 H RDW Coeff of Cathryn 15.2 H Plt Count 471 H MPV 9.1 Immature Gran % (Auto) 0.200 Neut % (Auto) 90.8 H Lymph % (Auto) 5.4 L Arthur % (Auto) 3.2 Eos % (Auto) 0.0 Baso % (Auto) 0.4 Absolute Neuts (auto) 9.9 H Absolute Lymphs (auto) 0.59 L Nucleated RBC % 0 Sodium 135 L Potassium 4.1 Chloride 104 Carbon Dioxide 27.0 Anion Gap 4 L BUN 28 H Creatinine 2.02 H Est GFR (MDRD) Af Amer 42 L Est GFR (MDRD) Non-Af 35 L BUN/Creatinine Ratio 13.9 Glucose 175 H Calcium 9.3 Total Bilirubin 0.40 AST 10 L ALT 13 L Alkaline Phosphatase 97 Total Protein 7.7 Albumin 3.2 Globulin 4.5 H Albumin/Globulin Ratio 0.7 L Lipase 16 Radiography Diagnostic Testing: Clinical Impression(s) from Imaging Studies Chest/Abdomen/Pelvis CTA 04/16/24 08:09 IMPRESSION: Marked degree of calcific plaque of the thoracic and abdominal aorta with evidence of ulcerated plaques and irregular mural thrombus. Infrarenal abdominal aortic aneurysm with a transverse dimension of 3.7 cm. Marked degree of right hydronephrosis and hydroureter down to the ileal loop and marked atrophy of the right kidney. Fluid filled and mildly distended small bowel loops. Electronically Signed: David Gonzalez MD at 9:25 EDT , Discharge Plan Triage Chief Complaint: Abd Pain ED Provider: Nael Blanco Dx/Rx/DC Orders Instructions: ED Abdominal Pain Unkn Cause Male... Prescriptions: New ondansetron 4 mg tablet,disintegrating 4 mg PO Q8H PRN PRN (Reason: Nausea) Qty: 10 0RF No Action atorvastatin 20 mg tablet 20 mg PO DAILY prednisone 10 mg tablet 10 mg PO PRN PRN (Reason: Allergy Symptoms) ibuprofen 800 mg tablet 800 mg PO PRN PRN (Reason: Pain) amlodipine 10 mg tablet 10 mg PO DAILY lisinopril 20 mg tablet 20 mg PO DAILY acetaminophen-codeine 1 EACH tablet 1 ea PO Q4H PRN PRN (Reason: Pain) Patient Comments: Pain gabapentin 300 MG capsule 300 mg PO TID Patient Comments: Neuropathy multivitamin Tablet 1 tab PO DAILY clopidogrel 75 mg tablet See Rx Instructions .ROUTE .COMPLEX Qty: 90 3RF Dose Instruction: TAKE 1 TABLET EVERY DAY Rx Instructions: TAKE 1 TABLET EVERY DAY Primary Care Provider: Arnie Chiang Referrals: Arnie Chiang MD [Primary Care Provider] - Print Language: Mauritanian Disposition Disposition: Home, Self Care Discharge Date/Time: 04/16/24 11:13
[2024-04-16 08:19] LABS: Absolute Lymphocyte Count 0.59 X10^3/uL (0.83-4.51); Absolute Neutrophil Count 9.9 X10^3/uL (2.0-7.7); Basophil# 0.04 X10^3/uL; Basophil% 0.4 % (0-1); Hematocrit 43.6 % (40-54); Hemoglobin 13.7 g/dL (13.0-16.5); Lymphocyte # 0.59 X10^3/ul (0.83-4.51); Lymphocyte % 5.4 % (19-41); Mean Corp Hgb Conc 31.4 g/dL (32-36); Mean Corpuscular Hgb 28.6 pg (27.0-32.0); Mean Platelet Vol. 9.1 fl (6.2-12.0); Monocyte# 0.35 X10^3/uL; Monocyte% 3.2 % (0-10); NRBC Flagged by Analyzer 0 % (0-5); Neutrophil # 9.94 X10^3/uL (2.7-7.7); Neutrophil % 90.8 % (47-70); POSITIVE DIFFERENTIAL YES; Platelet Count 471 K/mm3 (150-450); RBC Distribution Width CV 15.2 % (11.6-14.6); RBC Distribution Width SD 51.2 fl (35.1-43.9); Red Blood Count 4.79 M/mm3 (4.6-6.2); White Blood Count 10.9 K/mm3 (4.4-11.0)
[2024-04-16 08:26] LABS: ALB/GLOB Ratio 0.7 RATIO (0.9-2.4); AST(SGOT) 10 U/L (15-37); Alanine Aminotransfer ALT/SGPT 13 U/L (16-61); Albumin, Serum 3.2 g/dL (3.2-5.0); Alkaline Phosphatase 97 U/L (45-117); Anion Gap 4 (5-15); BUN 28 mg/dL (7-18); BUN/Creat Ratio 13.9 RATIO (10-20); Calcium,Total 9.3 mg/dL (8.5-10.1); Chloride 104 mmol/L (98-107); Creatinine, Serum 2.02 mg/dL (0.70-1.30); EST Glomerular Filtration Rate 35 mL/min (>60); Est Glom Filt Rate - Afr Amer 42 mL/min (>60); Globulin 4.5 g/dL (2.2-4.2); Glucose 175 mg/dL (74-106); Lipase 16 U/L (13-75); Potassium 4.1 mmol/L (3.5-5.1); Protein, Total 7.7 g/dL (6.4-8.2); Sodium Level 135 mmol/L (136-145)
[2024-04-16] MEDS: 0.9% Normal Saline (1000mL) 1,000 ML 999 ML IV (08:38)
[2024-04-16] MEDS: HYDROmorphone 0.5 MG/0.5 ML SYRINGE IV (08:38)
[2024-04-16 09:53] VITALS: BP 161/77; PULSE 82; RESP 18; O2SAT 98
[2024-04-16 10:52] VITALS: BP 133/70; PULSE 81; RESP 18; O2SAT 96
[2024-04-16 11:00] VITALS: BP 133/80; PULSE 71; RESP 18; TEMP 36.6; O2SAT 99
== END 2024-04-16 11:13 | disposition home or self-care (01) ==
PROVIDERS: Emergency Provider Student in an Organized Health Care Education/Training Program; PCP Internal Medicine; Visit Provider Student in an Organized Health Care Education/Training Program
DX: R10.9 Unspecified abdominal pain (principal); J44.9 Chronic obstructive pulmonary disease, unspecified; F17.210 Nicotine dependence, cigarettes, uncomplicated; I12.9 Hypertensive chronic kidney disease with stage 1 through stage 4 chronic kidney disease, or unspecified chronic kidney disease; N18.9 Chronic kidney disease, unspecified; Z90.49 Acquired absence of other specified parts of digestive tract; E78.00 Pure hypercholesterolemia, unspecified; K21.9 Gastro-esophageal reflux disease without esophagitis; Z85.038 Personal history of other malignant neoplasm of large intestine; I71.43 Infrarenal abdominal aortic aneurysm, without rupture; N13.30 Unspecified hydronephrosis; N13.4 Hydroureter
CPT/HCPCS: 96361; 96374; 96375; 99283; 71275; 74174; 80053; 83690; 85025; J7030; Q9967; A4216; J2405

== ENCOUNTER 2024-04-17 14:42 | Inpatient (IN) | payer MEDICARE, SELFPAY ==
[2024-04-17 14:43] VITALS: BP 136/70; PULSE 126; RESP 20; TEMP 36.4; O2SAT 97
--- NOTE | 2024-04-17 15:28 | EDS_ITS ---
HPI HPI - GI History of Present Illness Chief Complaint: Abd Pain Informant: patient, spouse/S.O. and family Narrative Narrative: 74-year-old male presenting to the emergency room chief complaint of abdominal pain. Patient states that Monday mid afternoon he ate a whopper Fabrice from [employer] and had an Ensure. He states it did not seem to sit well with him emboli around 1900 hrs. was having some epigastric periumbilical pain. During the night he developed some vomiting he was seen in the emergency department yesterday morning. He underwent CT angiography of the chest abdomen pelvis which demonstrated: IMPRESSION CTA: Marked degree of calcific plaque of the thoracic and abdominal aorta with evidence of ulcerated plaques and irregular mural thrombus. Infrarenal abdominal aortic aneurysm with a transverse dimension of 3.7 cm. Marked degree of right hydronephrosis and hydroureter down to the ileal loop and marked atrophy of the right kidney. Fluid filled and mildly distended small bowel loops. He states that he was discharged home with Pepcid and Zofran. He has had 2 doses of Pepcid and Zofran prior to arrival without relief. Today he has had a couple coffee, a bottle of water and some cereal. He notes nausea but no vomiting. He states he feels somewhat bloated continues to have pain. He notes decreased output in his urostomy. He has a history of prostate and bladder removal secondary to cancer with placement of ileal conduit at [facility] in 2016. 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 He has known AAA and peripheral artery disease. No reported fevers. He notes no bowel movement today or yesterday. PFSH PFS Medical History Colostomy in place Wears glasses Cancer Alcohol use History of steroid therapy Rheumatoid arthritis Anemia High cholesterol Easy bruising Back pain Injury of head and neck Smoker COPD (chronic obstructive pulmonary disease) Neuropathy History of stress test Personal history of prostate cancer Personal history of bladder cancer Carotid artery disease PAD (peripheral artery disease) BPH (benign prostatic hyperplasia) HTN (hypertension) Personal history of colon cancer GERD (gastroesophageal reflux disease) AAA (abdominal aortic aneurysm) PAD (peripheral artery disease) Home Medications ?Medication ?Instructions ?Recorded ?Last Taken ?Type acetaminophen 300 mg-codeine 60 mg 1 ea PO Q4H PRN PAIN 07/22/13 04/17/24 History tablet gabapentin 300 mg capsule 300 mg PO TID NERVE PAIN 03/07/16 04/15/24 History atorvastatin 20 mg tablet 20 mg PO DAILY CHOLESTEROL 05/27/21 04/15/24 History ibuprofen 800 mg tablet 800 mg PO Q8H PRN PAIN 05/27/21 Unknown History prednisone 10 mg tablet 10 mg PO DAILY PRN ALLERGY SYMPTOMS 05/27/21 Unknown History amlodipine 10 mg tablet 10 mg PO DAILY BLOOD PRESSURE 12/13/23 04/15/24 History lisinopril 20 mg tablet 20 mg PO DAILY BLOOD PRESSURE 12/13/23 04/15/24 History albuterol sulfate 90 mcg/actuation 2 puff inhalation Q4H PRN WHEEZING 04/17/24 04/16/24 History aerosol inhaler clopidogrel 75 mg tablet 75 mg PO DAILY BLOOD THNNER 04/17/24 04/15/24 History docusate sodium 100 mg capsule 100 mg PO DAILY STOOL SOFTENER 04/17/24 04/15/24 History (Colace) ondansetron 4 mg disintegrating 4 mg PO Q8H PRN NAUSEA 04/17/24 04/16/24 History tablet Allergy/AdvReac Type Severity Reaction Status Date / Time sulfamethoxazole (From AdvReac Other Verified 04/16/24 07:53 Bactrim) trimethoprim (From Bactrim) AdvReac Other Verified 04/16/24 07:53 Surgical History History of ileal conduit Hx of surgical procedure History of total cystectomy History of radical prostatectomy S/P arteriogram of extremity History of bladder surgery S/P peripheral artery angioplasty S/P colonoscopy S/P colectomy Social History Smoking Status: Current every day smoker tobacco type: cigarettes ROS ROS ED Constitutional Constitutional ED: Denies chills, fever(s) or weight loss Eyes Eyes: Denies change in vision or diplopia ENT ENT ED: Denies ear pain, rhinorrhea or sore throat Cardiovascular Cardiovascular: Denies chest pain, orthopnea, palpitations or racing heartbeat Respiratory/Chest Respiratory/Chest: Denies cough, dyspnea or orthopnea Gastrointestinal Gastrointestinal: Reports abdominal pain, nausea and vomiting; Denies diarrhea Genitourinary Genitourinary ED: Reports other Details: Decreased output in urostomy ; Denies dysuria, hematuria or urinary frequency Musculoskeletal Musculoskeletal: Denies arthralgias, back pain, myalgias or neck pain Integumentary Denies abscess or rash Neurologic Neurologic: Denies headache(s) or weakness Psychiatric Psychiatric: Denies anxiety, depression, suicidal ideation or suicidal thoughts Endocrine Endocrinology: Denies polydipsia, polyphagia or polyuria Allergic/Immunologic Allergic/Immunologic ED: Denies mouth swelling, tongue swelling or urticaria EXAM Physical Exam Const Vital Signs: 04/17/24 14:43 04/17/24 16:42 04/17/24 18:00 Temperature 97.5 F L Temperature Source Temporal Pulse Rate 126 H 96 103 H Respiratory Rate 20 H 14 19 H Blood Pressure 136/70 H 150/76 H 143/79 H Blood Pressure Mean 92 100 100 Pulse Ox 97 92 96 Oxygen Delivery Method Room Air Room Air Room Air Positive well nourished and well developed General Appearance ED: well developed HEENT Reports normocephalic, head/scalp atraumatic and dry mucous membranes Mouth ED: Yes dry mucous membranes Mouth: dry mucous membranes Eyes PERRL and EOMs intact bilaterally Neck no lymphadenopathy, supple and no JVD Resp normal respiratory effort and clear to auscultation bilaterally Cardio regular rate, regular rhythm and no murmurs Rate: tachycardic GI GI Narrative: The abdomen itself does not palpate as hard. He does have some tympany with palpation. Inspection: abdominal distention Auscultation: hypoactive bowel sounds Palpation: soft and tender epigastric and periumbilical; Negative for guarding or rebound tenderness present Back/Spine no CVA tenderness and normal ROM Extremity normal to inspection General Extremety ED: Negative for edema General Extremity: Negative for edema Neuro oriented x3 and CN's II-XII intact bilaterally Sensorium / Orientation: alert Motor Exam: strength 5/5 throughout Psych mental status grossly normal Mood & Affect: Negative for depressed or tearful Skin no rashes or lesions noted and no wounds MDM MDM MDM Narrative Medical decision making narrative: Differential diagnosis includes but not to ileus small bowel obstruction dehydration electrolyte failure volvulus adhesions gastroenteritis/enteritis colitis gastroparesis. White count 10.3 hemoglobin 12.4. Creatinine 1.95 with a BUN of 29. Sodium potassium within normal limits. CO2 29 anion gap of 4. Lactic acid is normal at 0.7. Liver enzymes are not elevated. Lipase is normal at 17. CT of the abdomen pelvis with both oral and IV contrast was obtained. This is consistent with a acute small bowel obstruction. The patient noted to have left pleural effusion. I would encourage her to this note to see the radiologist read. My independent interpretation of the portable abdominal view for NG tube placement is adequate placement. Patient received IV fluids Zofran and Dilaudid. NG tube was placed with greater than 1 L out so far. I reviewed the case with on-call surgeon Dr. Nicolas as well as with urology Dr. Munoz. The recommendation is transfer to tertiary care. I spoke with the colorectal surgeon on-call at [facility] the patient will be transferred there. History & Record Review Discussion w/independent historian: Patient, Family and Significant other Lab Data Attestation: I reviewed the patient's lab results. Labs: Laboratory Results - last 24 hr 04/17/24 15:35 WBC 10.3 RBC 4.38 L Hgb 12.4 L Hct 40.4 MCV 92.2 MCH 28.3 MCHC 30.7 L RDW Std Deviation 51.7 H RDW Coeff of Cathryn 15.2 H Plt Count 415 MPV 9.2 Immature Gran % (Auto) 2.000 H Neut % (Auto) 86.2 H Lymph % (Auto) 5.6 L [place] % (Auto) 4.9 Eos % (Auto) 0.6 Baso % (Auto) 0.7 Absolute Neuts (auto) 8.9 H Absolute Lymphs (auto) 0.58 L Nucleated RBC % 0 Sodium 136 Potassium 4.8 Chloride 103 Carbon Dioxide 29.0 Anion Gap 4 L BUN 29 H Creatinine 1.95 H Est GFR (MDRD) Af Amer 44 L Est GFR (MDRD) Non-Af 36 L BUN/Creatinine Ratio 14.9 Glucose 146 H Lactic Acid 0.7 Calcium 9.1 Total Bilirubin 0.40 Direct Bilirubin 0.18 AST 13 L ALT 12 L Alkaline Phosphatase 79 Total Protein 6.2 L Albumin 2.6 L Globulin 3.6 Lipase 17 Radiography Diagnostic Testing: Clinical Impression(s) from Imaging Studies Abdomen/Pelvis CT 04/17/24 17:25 IMPRESSION: Findings consistent with small bowel obstruction most likely due to adhesions. 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 Electronically Signed: Kuldeep Dye MD at 19:26 EDT , Discharge Plan Dx/Rx/DC Orders Clinical Impression: SBO (small bowel obstruction), Pleural effusion, Acute dehydration Disposition Disposition: Acute Care Hospital [facility]
[2024-04-17] MEDS: 0.9% Normal Saline (1000mL) 1,000 ML 999 ML IV (15:36)
[2024-04-17] MEDS: Ondansetron 4 MG/2 ML Vial IV (15:37)
[2024-04-17] MEDS: HYDROmorphone 1 MG/ML Syringe IV ×2 (15:37→17:54)
[2024-04-17 15:47] LABS: Absolute Lymphocyte Count 0.58 X10^3/uL (0.83-4.51); Absolute Neutrophil Count 8.9 X10^3/uL (2.0-7.7); Basophil# 0.07 X10^3/uL; Basophil% 0.7 % (0-1); Eosinophil# 0.06 X10^3/uL; Eosinophils% 0.6 % (0-5); Hematocrit 40.4 % (40-54); Hemoglobin 12.4 g/dL (13.0-16.5); Lymphocyte # 0.58 X10^3/ul (0.83-4.51); Lymphocyte % 5.6 % (19-41); Mean Corp Hgb Conc 30.7 g/dL (32-36); Mean Corpuscular Hgb 28.3 pg (27.0-32.0); Mean Corpuscular Volume 92.2 fL (80-94); Mean Platelet Vol. 9.2 fl (6.2-12.0); Monocyte% 4.9 % (0-10); NRBC Flagged by Analyzer 0 % (0-5); Neutrophil # 8.86 X10^3/uL (2.7-7.7); Neutrophil % 86.2 % (47-70); POSITIVE DIFFERENTIAL YES; Platelet Count 415 K/mm3 (150-450); RBC Distribution Width CV 15.2 % (11.6-14.6); RBC Distribution Width SD 51.7 fl (35.1-43.9); Red Blood Count 4.38 M/mm3 (4.6-6.2); White Blood Count 10.3 K/mm3 (4.4-11.0)
[2024-04-17 16:08] LABS: AST(SGOT) 13 U/L (15-37); Alanine Aminotransfer ALT/SGPT 12 U/L (16-61); Albumin, Serum 2.6 g/dL (3.2-5.0); Alkaline Phosphatase 79 U/L (45-117); Anion Gap 4 (5-15); BUN 29 mg/dL (7-18); BUN/Creat Ratio 14.9 RATIO (10-20); Bilirubin, Direct 0.18 mg/dL (0.00-0.30); Calcium,Total 9.1 mg/dL (8.5-10.1); Chloride 103 mmol/L (98-107); Creatinine, Serum 1.95 mg/dL (0.70-1.30); EST Glomerular Filtration Rate 36 mL/min (>60); Est Glom Filt Rate - Afr Amer 44 mL/min (>60); Globulin 3.6 g/dL (2.2-4.2); Glucose 146 mg/dL (74-106); Lipase 17 U/L (13-75); Potassium 4.8 mmol/L (3.5-5.1); Protein, Total 6.2 g/dL (6.4-8.2); Sodium Level 136 mmol/L (136-145)
[2024-04-17 16:13] LABS: Lactic Acid 0.7 mmol/L (0.4-1.9)
[2024-04-17 16:42] VITALS: BP 150/76; PULSE 96; RESP 14; O2SAT 92
--- NOTE | 2024-04-17 17:25 | CT_ITS ---
STUDY: CT ABDOMEN AND PELVIS WITH CONTRAST REASON FOR EXAM: Male, 74 years old. small bowel obstruction -- IV PO Contrast RADIATION DOSAGE (If Supplied By Facility): CTDIvol = ( 7.23 ) mGy, DLP = ( 418.15 ) mGycm TECHNIQUE: Transaxial images were obtained from the dome of the diaphragm to the symphysis pubis without oral contrast. Oral and amp; IV Gastrografin and amp; 100mL Isovue-370 was administered. Sagittal and coronal images were reconstructed. Individualized dose optimization techniques were used for this CT. COMPARISON: None. FINDINGS: Large left pleural effusion with consolidation left lower lobe.. Heart is mildly enlarged. There is no coronary artery calcification visualized. Liver is homogeneous in attenuation except for tiny cysts. Bile ducts are not dilated.. Multiple tiny stones gallbladder. No evidence for pericholecystic edema. Normal spleen. Normal pancreas. Normal bilateral adrenal glands. There is severe long-standing right renal obstruction with marked cortical loss and hydroureter. Left kidney is not obstructed. There are 3 small cysts which will not require additional imaging. Markedly distended stomach as well as multiple loops of proximal to mid small bowel with transition point consistent with obstruction.. There are postsurgical changes status post small bowel and distal colonic resection. . No evidence for acute appendicitis. Nonspecific mesenteric edema with ascites in the abdomen and pelvis. Atherosclerotic changes of the aorta with fusiform distal aortic aneurysm with maximum dimension of approximately 3.75 x 3.5 cm. Normal inferior vena cava. Normal retroperitoneum. Bilateral common iliac stents are observed. Bladder is not visualized consistent with prior cystectomy and ileal conduit in the right lower quadrant. Prostate is not visualized as well. Small fat-containing left inguinal hernia. . Lumbar spine demonstrates mild spondylosis CT/Abdomen/Pelvis WITH Contrast IMPRESSION: Findings consistent with small bowel obstruction most likely due to adhesions. 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
[2024-04-17] MEDS: 0.9% Normal Saline (1000mL) 1,000 ML 125 ML IV (17:39)
[2024-04-17 18:00] VITALS: BP 143/79; PULSE 103; RESP 19; O2SAT 96
--- NOTE | 2024-04-17 18:55 | RAD_ITS ---
STUDY: X-RAY - ABDOMEN/PELVIS REASON FOR EXAM: Male, 74 years old. NG Insertion TECHNIQUE: KUB COMPARISON: None. FINDINGS: Left pleural effusion with mild left lower lobe atelectasis.. Multiple distended loops of proximal small bowel.. There is no demonstrated free abdominal air. The visualized liver, spleen and kidneys are grossly normal in size and morphology. Nasogastric tube is in place with tip in the mid to distal gastric fundus. Normal visualized osseous structures. RAD/Abdomen Single View (Portable) IMPRESSION: Nasogastric placement with tip in mid to distal gastric fundus. Electronically Signed: Kuldeep Dye MD at 19:26 EDT ,
[2024-04-17] MEDS: Morphine 4 MG/ML Syringe IV (19:31)
[2024-04-17 20:00] VITALS: BP 138/75; PULSE 100; RESP 12; O2SAT 94
--- NOTE | 2024-04-17 20:44 | ED.RN ---
[facility] [place] called for updates on vital signs, labs. State they will call back with bed assignment.
[2024-04-17 22:00] VITALS: BP 145/70; PULSE 110; RESP 14; O2SAT 93
[2024-04-18] VITALS (11 sets, daily range): BP systolic 135–168; BP diastolic 69–89; PULSE 85–106; RESP 12–18; TEMP 36.3–36.8; O2SAT 92–96; BMI 20.1
--- NOTE | 2024-04-18 00:21 | ED.RN ---
Per call to [facility] transfer center, no beds available until morning.
[2024-04-18] MEDS: Morphine 4 MG/ML Syringe IV ×2 (01:18→06:03)
[2024-04-18] MEDS: 0.9% Normal Saline (1000mL) 1,000 ML 125 ML IV ×3 (01:27→12:33)
--- NOTE | 2024-04-18 08:43 | ED.RN ---
CALLED [facility] ABOUT BED STATUS, NO BEDS YET
[2024-04-18] MEDS: HYDROmorphone 1 MG/ML Syringe IV ×5 (08:47→19:28)
--- NOTE | 2024-04-18 09:58 | HP.PCM.HOS_ITS ---
[facility] - General General Date of Admission: 04/18/24 Date of Service: 04/18/24 Chief Complaint: abdominal pain. HPI Narrative LELA PHAM, is a 74 M who presents with abdominal pain. Symptoms began this past Monday and has steadily worsened. Patient was seen here on the where he had a CAT scan that showed some fluid-filled and mildly distended small bowel loops but without bowel obstruction. Came back on the and was found to have a small bowel obstruction most likely due to adhesions. NG tube was placed and patient is receiving pain medications. His abdomen is feeling slightly better though still distended. He has never had a small bowel obstruction before. They did reach out to general surgery who advised transfer. Patient was excepted by Dr. Kerns at [facility], but unfortunately did not have any readily available beds and so the patient would be admitted to the hospital service with the understanding of general surgery helping to expedite transfer if necessary. [facility] Medical History Colostomy in place Wears glasses Cancer Alcohol use History of steroid therapy Rheumatoid arthritis Anemia High cholesterol Easy bruising Back pain Injury of head and neck Smoker COPD (chronic obstructive pulmonary disease) Neuropathy History of stress test Personal history of prostate cancer Personal history of bladder cancer Carotid artery disease PAD (peripheral artery disease) BPH (benign prostatic hyperplasia) HTN (hypertension) Personal history of colon cancer GERD (gastroesophageal reflux disease) AAA (abdominal aortic aneurysm) PAD (peripheral artery disease) Home Medications ?Medication ?Instructions ?Recorded ?Last Taken ?Type acetaminophen 300 mg-codeine 60 mg 1 ea PO Q4H PRN PAIN 07/22/13 04/17/24 History tablet gabapentin 300 mg capsule 300 mg PO TID NERVE PAIN 03/07/16 04/15/24 History atorvastatin 20 mg tablet 20 mg PO DAILY CHOLESTEROL 05/27/21 04/15/24 History ibuprofen 800 mg tablet 800 mg PO Q8H PRN PAIN 05/27/21 Unknown History prednisone 10 mg tablet 10 mg PO DAILY PRN ALLERGY SYMPTOMS 05/27/21 Unknown History amlodipine 10 mg tablet 10 mg PO DAILY BLOOD PRESSURE 12/13/23 04/15/24 History lisinopril 20 mg tablet 20 mg PO DAILY BLOOD PRESSURE 12/13/23 04/15/24 History albuterol sulfate 90 mcg/actuation 2 puff inhalation Q4H PRN WHEEZING 04/17/24 04/16/24 History aerosol inhaler clopidogrel 75 mg tablet 75 mg PO DAILY BLOOD THNNER 04/17/24 04/15/24 History docusate sodium 100 mg capsule 100 mg PO DAILY STOOL SOFTENER 04/17/24 04/15/24 History (Colace) ondansetron 4 mg disintegrating 4 mg PO Q8H PRN NAUSEA 04/17/24 04/16/24 History tablet Allergy/AdvReac Type Severity Reaction Status Date / Time sulfamethoxazole (From AdvReac Other Verified 04/16/24 07:53 Bactrim) trimethoprim (From Bactrim) AdvReac Other Verified 04/16/24 07:53 Surgical History History of ileal conduit Hx of surgical procedure History of total cystectomy History of radical prostatectomy S/P arteriogram of extremity History of bladder surgery S/P peripheral artery angioplasty S/P colonoscopy S/P colectomy Social History Smoking Status: Current every day smoker tobacco type: cigarettes ROS ROS Narrative Chronically short of breath. All review of systems were negative except as mentioned above in the history of present illness and the other review of systems. Vital Signs Vital Signs Vital Signs: 04/17/24 14:43 04/17/24 16:42 04/17/24 18:00 Temperature 36.4 C L Temperature Source Temporal Pulse Rate 126 H 96 103 H Respiratory Rate 20 H 14 19 H Blood Pressure 136/70 H 150/76 H 143/79 H Blood Pressure Mean 92 100 100 Pulse Ox 97 92 96 Oxygen Delivery Method Room Air Room Air Room Air 04/17/24 20:00 04/17/24 22:00 04/18/24 00:00 Temperature Temperature Source Pulse Rate 100 110 H 103 H Respiratory Rate 12 14 12 Blood Pressure 138/75 H 145/70 H 147/74 H Blood Pressure Mean 96 95 98 Pulse Ox 94 93 92 Oxygen Delivery Method Room Air Room Air Room Air 04/18/24 02:00 04/18/24 04:00 04/18/24 06:00 Temperature Temperature Source Pulse Rate 100 90 106 H Respiratory Rate 16 18 16 Blood Pressure 156/77 H 168/89 H Blood Pressure Mean 103 115 Pulse Ox 96 94 94 Oxygen Delivery Method Room Air Room Air 04/18/24 08:00 Temperature 36.4 C L Temperature Source Temporal Pulse Rate 102 H Respiratory Rate 16 Blood Pressure 163/76 H Blood Pressure Mean 105 Pulse Ox 94 Oxygen Delivery Method Room Air Physical Exam Narrative - Physical Exam General: Alert, Oriented x3, Cooperative HEENT: Atraumatic, PERRLA, EOMI, Normocephalic. NG tube in place. Oral: Moist Mucosa, No Gingival or Mucosal Lesions/ Ulcerations Neck: Supple, No JVD, Negative Carotid Bruits Lungs: Clear to auscultation, Normal air movement Cardiovascular: Regular rate, Normal S1, Normal S2, No murmurs Abdomen: High-pitched bowel sounds. Ileal conduit right lower quadrant. Distended, soft. Extremities: No clubbing, No cyanosis, No edema, Capillary Refill Less than 3 Seconds Skin: No rashes, No breakdown Musculoskeletal: No Tenderness to Palpation of Joints or Extremities Neurological: Neuro grossly intact Psych/Mental Status: Normal Affect, Appropriate Results Lab / Micro Data Attestation: I reviewed the patient's lab results. 04/17/24 15:35 04/17/24 15:35 Labs: Laboratory Results - last 24 hr 04/17/24 15:35: WBC 10.3, RBC 4.38 L, Hgb 12.4 L, Hct 40.4, MCV 92.2, MCH 28.3, MCHC 30.7 L, RDW Std Deviation 51.7 H, RDW Coeff of Cathryn 15.2 H, Plt Count 415, MPV 9.2, Immature Gran % (Auto) 2.000 H, Neut % (Auto) 86.2 H, Lymph % (Auto) 5.6 L, [place] % (Auto) 4.9, Eos % (Auto) 0.6, Baso % (Auto) 0.7, Absolute Neuts (auto) 8.9 H, Absolute Lymphs (auto) 0.58 L, Nucleated RBC % 0, Sodium 136, Potassium 4.8, Chloride 103, Carbon Dioxide 29.0, Anion Gap 4 L, BUN 29 H, C reatinine 1.95 H, Est GFR (MDRD) Af Amer 44 L, Est GFR (MDRD) Non-Af 36 L, BUN/Creatinine Ratio 14.9, Glucose 146 H, Lactic Acid 0.7, Calcium 9.1, Total Bilirubin 0.40, Direct Bilirubin 0.18, AST 13 L, ALT 12 L, Alkaline Phosphatase 79, Total Protein 6.2 L, Albumin 2.6 L, Globulin 3.6, Lipase 17 Imaging Radiology Impression Abdomen/Pelvis CT 04/17/24 17:25 IMPRESSION: Findings consistent with small bowel obstruction most likely due to adhesions. 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 Electronically Signed: Kuldeep Dye MD at 19:26 EDT , Assessment & Plan Assessment/Plan (1) SBO (small bowel obstruction): PLAN: Plan Small bowel obstruction * Likely due to adhesions * NG tube was placed in ED. Continue with IV fluids. Pain control with IV narcotics, particularly hydromorphone. Antiemetics. * General surgery is recommended transfer to tertiary facility, patient has been accepted by Dr. Garvey, colorectal surgery at the [facility]. No readily available beds at this point. * General surgery here will be on consultation though it is understood that they would not be performing any surgery on the patient here but it is understood that they will be involved in regards to expediting transfer if necessary or reaching out to other institutions to see about accepting the patient. * But in the off chance the patient does start to improve while he is here than could lead to clamping NG tube and eventually removing that if that becomes possible. Chronic additions * COPD: Not in exacerbation. Continue with bronchodilators. * PAD: Hold clopidogrel on the off chance patient does require surgery. * Tobacco abuse: Advised cessation. VTE prophylaxis: SCDs. Holding off on chemical prophylaxis in case patient will require surgery. CODE STATUS: Addressed with patient. Patient wished to be DNR Comfort Care arrest. Discussed with the patient's at bedside. Charges/Coding Visit Charges Inpatient E&M: 91279 Init Hosp L2
--- NOTE | 2024-04-18 10:20 | RAD_ITS ---
STUDY: X-RAY - ABDOMEN/PELVIS REASON FOR EXAM: Male, 74 years old. sbo -- portable TECHNIQUE: Single AP view of the abdomen / pelvis. COMPARISON: Comparison is made with prior study dated April 17, 2024. FINDINGS: Persistent left lower lobe infiltration. The tip of the nasogastric tube is in the body of the stomach. There are dilated loops of the small intestine with a non-distended colon consistent with a small bowel obstruction. Small amount of gas is seen in the colon. Follow-up recommended. The visualized liver, spleen and kidneys are grossly normal in size and morphology. A vascular stent is seen in the right common and external iliac arteries. Normal visualized osseous structures. RAD/Abdomen Single View (Portable) IMPRESSION: Persistent small bowel dilatation a 2. Small bowel obstruction. Electronically Signed: David Gonzalez MD at 11:37 EDT ,
[2024-04-18 10:23] LABS: Absolute Lymphocyte Count 0.68 X10^3/uL (0.83-4.51); Absolute Neutrophil Count 8.9 X10^3/uL (2.0-7.7); Basophil# 0.05 X10^3/uL; Basophil% 0.5 % (0-1); Eosinophil# 0.01 X10^3/uL; Eosinophils% 0.1 % (0-5); Hematocrit 34.9 % (40-54); Hemoglobin 10.9 g/dL (13.0-16.5); Lymphocyte # 0.68 X10^3/ul (0.83-4.51); Lymphocyte % 6.6 % (19-41); Mean Corp Hgb Conc 31.2 g/dL (32-36); Mean Corpuscular Hgb 28.8 pg (27.0-32.0); Mean Corpuscular Volume 92.1 fL (80-94); Mean Platelet Vol. 9.2 fl (6.2-12.0); Monocyte# 0.62 X10^3/uL; Monocyte% 6.1 % (0-10); NRBC Flagged by Analyzer 0 % (0-5); Neutrophil # 8.85 X10^3/uL (2.7-7.7); Neutrophil % 86.5 % (47-70); Platelet Count 340 K/mm3 (150-450); RBC Distribution Width CV 15.1 % (11.6-14.6); RBC Distribution Width SD 51.3 fl (35.1-43.9); Red Blood Count 3.79 M/mm3 (4.6-6.2); White Blood Count 10.2 K/mm3 (4.4-11.0)
[2024-04-18 10:36] LABS: Anion Gap 4 (5-15); BUN 27 mg/dL (7-18); BUN/Creat Ratio 16.8 RATIO (10-20); Calcium,Total 8.4 mg/dL (8.5-10.1); Chloride 107 mmol/L (98-107); Creatinine, Serum 1.61 mg/dL (0.70-1.30); EST Glomerular Filtration Rate 45 mL/min (>60); Est Glom Filt Rate - Afr Amer 54 mL/min (>60); Glucose 107 mg/dL (74-106); Potassium 4.1 mmol/L (3.5-5.1); Sodium Level 140 mmol/L (136-145)
--- NOTE | 2024-04-18 13:13 | EX.PCM.CON.S ---
Documented by User: Mala RODRIGUEZ PA-C 04/18/24 16:56 Assessment & Plan Assessment/Plan (1) SBO (small bowel obstruction): PLAN: I have been consulted in conjunction with Dr. Dumont. She will independently evaluate this patient. Patient presents with a small bowel obstruction. He had a rectosigmoid cancer previously which included a colectomy with a low rectal stump anastomosis. It appears CT shows a markedly distended stomach as well as multiple loops of proximal to mid small bowel with transition point consistent with obstruction. Due to patient's comorbidities, patient would benefit from a transfer to a tertiary facility in the case that a surgical procedure needs to be completed. Patient is high-risk to be completed at this hospital. Plan for patient to be admitted with NG to low intermittent suction. Plan for repeat KUB to evaluate where the contrast is located in the colon. In the meantime, patient was accepted by [facility], Dr. Gaspar, with bed availability now. Patient will be transferred to . Patient and his spouse have had the opportunity to ask and have questions answered. Patient verbally understands and agrees with the plan. Thank you for allowing us to participate in this patient's care. HPI Consult Data Date of Consult: 04/18/24 HPI Narrative Reason for Consultation: Small bowel obstruction HPI Narrative: LELA PHAM, is a 74 M who presents with a 2 day history of epigastric abdominal pain, nausea, vomiting. He notes Monday he started with epigastric pain, which felt like a sour stomach. He started with nausea, vomiting. He was unable to pass flatus and had only a small amount of solid stool output on Monday. He presents to the ED where a CT scan of the ab/pel was completed demonstrating: IMPRESSION: Findings consistent with small bowel obstruction most likely due to adhesions. 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 Patient was attempted to be transferred to [facility], however there was no bed. Patient is on Plavix for PAD. He has a history of prostate and bladder removal secondary to cancer with placement of ileal conduit at [facility] in 2016. 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 He has known AAA and peripheral artery disease. No reported fevers. He denies having any previous small bowel obstructions. [facility], [facility] Medical History Colostomy in place Wears glasses Cancer Alcohol use History of steroid therapy Rheumatoid arthritis Anemia High cholesterol Easy bruising Back pain Injury of head and neck Smoker COPD (chronic obstructive pulmonary disease) Neuropathy History of stress test Personal history of prostate cancer Personal history of bladder cancer Carotid artery disease PAD (peripheral artery disease) BPH (benign prostatic hyperplasia) HTN (hypertension) Personal history of colon cancer GERD (gastroesophageal reflux disease) AAA (abdominal aortic aneurysm) PAD (peripheral artery disease) Home Medications ?Medication ?Instructions ?Recorded ?Last Taken ?Type acetaminophen 300 mg-codeine 60 mg 1 ea PO Q4H PRN PAIN 07/22/13 04/17/24 History tablet gabapentin 300 mg capsule 300 mg PO TID NERVE PAIN 03/07/16 04/15/24 History atorvastatin 20 mg tablet 20 mg PO DAILY CHOLESTEROL 05/27/21 04/15/24 History ibuprofen 800 mg tablet 800 mg PO Q8H PRN PAIN 05/27/21 Unknown History prednisone 10 mg tablet 10 mg PO DAILY PRN ALLERGY SYMPTOMS 05/27/21 Unknown History amlodipine 10 mg tablet 10 mg PO DAILY BLOOD PRESSURE 12/13/23 04/15/24 History lisinopril 20 mg tablet 20 mg PO DAILY BLOOD PRESSURE 12/13/23 04/15/24 History albuterol sulfate 90 mcg/actuation 2 puff inhalation Q4H PRN WHEEZING 04/17/24 04/16/24 History aerosol inhaler clopidogrel 75 mg tablet 75 mg PO DAILY BLOOD THNNER 04/17/24 04/15/24 History docusate sodium 100 mg capsule 100 mg PO DAILY STOOL SOFTENER 04/17/24 04/15/24 History (Colace) ondansetron 4 mg disintegrating 4 mg PO Q8H PRN NAUSEA 04/17/24 04/16/24 History tablet Allergy/AdvReac Type Severity Reaction Status Date / Time sulfamethoxazole (From AdvReac Other Verified 04/16/24 07:53 Bactrim) trimethoprim (From Bactrim) AdvReac Other Verified 04/16/24 07:53 Surgical History History of ileal conduit Hx of surgical procedure History of total cystectomy History of radical prostatectomy S/P arteriogram of extremity History of bladder surgery S/P peripheral artery angioplasty S/P colonoscopy S/P colectomy Social History Smoking Status: Current every day smoker tobacco type: cigarettes ROS Constitutional Constitutional: Reports systems reviewed and no addt'l complaints, except as documented Eyes Eyes: Reports systems reviewed and no addt'l complaints, except as documented ENT HEENT: Reports systems reviewed and no addt'l complaints, except as documented Cardiovascular Cardiovascular: Reports systems reviewed and no addt'l complaints, except as documented Respiratory/Chest Respiratory/Chest: Reports systems reviewed and no addt'l complaints, except as documented Gastrointestinal Gastrointestinal: Reports systems reviewed and no addt'l complaints, except as documented Genitourinary Genitourinary: Reports systems reviewed and no addt'l complaints, except as documented Musculoskeletal Musculoskeletal: Reports systems reviewed and no addt'l complaints, except as documented Integumentary Integumentary: Reports systems reviewed and no addt'l complaints, except as documented Neurologic Neurologic: Reports systems reviewed and no addt'l complaints, except as documented Psychiatric Psychiatric: Reports systems reviewed and no addt'l complaints, except as documented Endocrine Endocrinology: Reports systems reviewed and no addt'l complaints, except as documented Hematologic/Lymphatic Hematologic/Lymphatic: Reports systems reviewed and no addt'l complaints, except as documented Allergic/Immunologic Allergic/Immunologic: Reports systems reviewed and no addt'l complaints, except as documented Physical Exam Const alert, oriented x3 and no apparent distress HEENT normocephalic and head/scalp atraumatic Eyes PERRL Neck full ROM Lymph Lymphatic: no lymphadenopathy noted Resp normal respiratory effort and clear to auscultation bilaterally Cardio regular rate and regular rhythm GI GI Narrative: Abdomen- distended. Right lower ileal conduit with urine noted. Hypoactive bowel sounds. Tenderness with palpation epigastric region. no CVA tenderness Back/Spine no CVA tenderness Extremity normal to inspection Skin no rashes or lesions noted Neuro no focal motor deficits and no sensory deficits noted Psych mental status grossly normal and thought process normal Lab / Micro Data 04/18/24 10:17 04/18/24 10:17 Labs: Laboratory Results - last 24 hr 04/17/24 15:35: WBC 10.3, RBC 4.38 L, Hgb 12.4 L, Hct 40.4, MCV 92.2, MCH 28.3, MCHC 30.7 L, RDW Std Deviation 51.7 H, RDW Coeff of Cathryn 15.2 H, Plt Count 415, MPV 9.2, Immature Gran % (Auto) 2.000 H, Neut % (Auto) 86.2 H, Lymph % (Auto) 5.6 L, Norton % (Auto) 4.9, Eos % (Auto) 0.6, Baso % (Auto) 0.7, Absolute Neuts (auto) 8.9 H, Absolute Lymphs (auto) 0.58 L, Nucleated RBC % 0, Sodium 136, Potassium 4.8, Chloride 103, Carbon Dioxide 29.0, Anion Gap 4 L, BUN 29 H, Creatinine 1.95 H, Est GFR (MDRD) Af Amer 44 L, Est GFR (MDRD) Non-Af 36 L, BUN/Creatinine Ratio 14.9, Glucose 146 H, Lactic Acid 0.7, Calcium 9.1, Total Bilirubin 0.40, Direct Bilirubin 0.18, AST 13 L, ALT 12 L, Alkaline Phosphatase 79, Total Protein 6.2 L, Albumin 2.6 L, Globulin 3.6, Lipase 17 04/18/24 10:17: WBC 10.2, RBC 3.79 L, Hgb 10.9 L, Hct 34.9 L, MCV 92.1, MCH 28.8, MCHC 31.2 L, RDW Std Deviation 51.3 H, RDW Coeff of Cathryn 15.1 H, Plt Count 340, MPV 9.2, Immature Gran % (Auto) 0.200, Neut % (Auto) 86.5 H, Lymph % (Auto) 6.6 L, Norton % (Auto) 6.1, Eos % (Auto) 0.1, Baso % (Auto) 0.5, Absolute Neuts (auto) 8.9 H, Absolute Lymphs (auto) 0.68 L, Nucleated RBC % 0, Sodium 140, Potassium 4.1, Chloride 107, Carbon Dioxide 29.0, Anion Gap 4 L, BUN 27 H, Creatinine 1.61 H, Est GFR (MDRD) Af Amer 54 L, Est GFR (MDRD) Non-Af 45 L, BUN/Creatinine Ratio 16.8, Glucose 107 H, Calcium 8.4 L Imaging Radiology Impression Abdomen/Pelvis CT 04/17/24 17:25 IMPRESSION: Findings consistent with small bowel obstruction most likely due to adhesions. 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 Electronically Signed: Kuldeep Dye MD at 19:26 EDT , KUB X-Ray 04/18/24 10:20 IMPRESSION: Persistent small bowel dilatation a 2. Small bowel obstruction. Electronically Signed: David Gonzalez MD at 11:37 EDT , Charges/Coding Visit Charges Office Visits / Consults: 12389 IP Consult L3 Documented by User: Dr. Bisi Dumont MD 04/18/24 17:03 Assessment & Plan Assessment/Plan (1) SBO (small bowel obstruction): PLAN: I have been consulted in conjunction with Dr. Dumont. She will independently evaluate this patient. Patient presents with a small bowel obstruction. He had a rectosigmoid cancer previously which included a colectomy with a low rectal stump anastomosis. It appears CT shows a markedly distended stomach as well as multiple loops of proximal to mid small bowel with transition point consistent with obstruction. Due to patient's comorbidities, patient would benefit from a transfer to a tertiary facility in the case that a surgical procedure needs to be completed. Patient is high-risk to be completed at this hospital. Plan for patient to be admitted with NG to low intermittent suction. Plan for repeat KUB to evaluate where the contrast is located in the colon. In the meantime, patient was accepted by [facility], Dr. Gaspar, with bed availability now. Patient will be transferred to . Patient and his spouse have had the opportunity to ask and have questions answered. Patient verbally understands and agrees with the plan. Thank you for allowing us to participate in this patient's care. ------- Patient seen and examined agree with Mala Carvalho note. Patient did have repeat KUB as NG was advanced further. Patient still distended complaining of abdominal pain once IV pain meds wears off and denies any flatus or bowel movement since Monday.. Patient has been accepted to . Bisi Dumont M.D. Pager: [phone] [facility] [address] [place] [address], [facility], [address] [place] [address] Office: [phone] [facility] Consult Data Date of Consult: 04/18/24 [facility], [facility] Medical History Colostomy in place Wears glasses Cancer Alcohol use History of steroid therapy Rheumatoid arthritis Anemia High cholesterol Easy bruising Back pain Injury of head and neck Smoker COPD (chronic obstructive pulmonary disease) Neuropathy History of stress test Personal history of prostate cancer Personal history of bladder cancer Carotid artery disease PAD (peripheral artery disease) BPH (benign prostatic hyperplasia) HTN (hypertension) Personal history of colon cancer GERD (gastroesophageal reflux disease) AAA (abdominal aortic aneurysm) PAD (peripheral artery disease) Home Medications ?Medication ?Instructions ?Recorded ?Last Taken ?Type acetaminophen 300 mg-codeine 60 mg 1 ea PO Q4H PRN PAIN 07/22/13 04/17/24 History tablet gabapentin 300 mg capsule 300 mg PO TID NERVE PAIN 03/07/16 04/15/24 History atorvastatin 20 mg tablet 20 mg PO DAILY CHOLESTEROL 05/27/21 04/15/24 History ibuprofen 800 mg tablet 800 mg PO Q8H PRN PAIN 05/27/21 Unknown History prednisone 10 mg tablet 10 mg PO DAILY PRN ALLERGY SYMPTOMS 05/27/21 Unknown History amlodipine 10 mg tablet 10 mg PO DAILY BLOOD PRESSURE 12/13/23 04/15/24 History lisinopril 20 mg tablet 20 mg PO DAILY BLOOD PRESSURE 12/13/23 04/15/24 History albuterol sulfate 90 mcg/actuation 2 puff inhalation Q4H PRN WHEEZING 04/17/24 04/16/24 History aerosol inhaler clopidogrel 75 mg tablet 75 mg PO DAILY BLOOD THNNER 04/17/24 04/15/24 History docusate sodium 100 mg capsule 100 mg PO DAILY STOOL SOFTENER 04/17/24 04/15/24 History (Colace) ondansetron 4 mg disintegrating 4 mg PO Q8H PRN NAUSEA 04/17/24 04/16/24 History tablet Allergy/AdvReac Type Severity Reaction Status Date / Time sulfamethoxazole (From AdvReac Other Verified 04/16/24 07:53 Bactrim) trimethoprim (From Bactrim) AdvReac Other Verified 04/16/24 07:53 Surgical History History of ileal conduit Hx of surgical procedure History of total cystectomy History of radical prostatectomy S/P arteriogram of extremity History of bladder surgery S/P peripheral artery angioplasty S/P colonoscopy S/P colectomy Social History Smoking Status: Current every day smoker tobacco type: cigarettes Lab / Micro Data 04/18/24 10:17 04/18/24 10:17
--- NOTE | 2024-04-18 14:05 | RAD_ITS ---
HISTORY: verify NG placement. TECHNIQUE: XR Abdomen 1 View. COMPARISON: Prior day. FINDINGS: BOWEL GAS PATTERN: Nasogastric tube side port and tip advanced into the left upper quadrant. Multiple dilated small bowel loops again seen. FREE AIR: No subdiaphragmatic free air identified. SOFT TISSUES: Left pleural effusion with left basilar collapse or consolidation again seen. RAD/Abdomen Single View (Portable) IMPRESSION: Satisfactory position of nasogastric tube with tip at the level of the stomach. Persistent small bowel obstruction. Electronically Signed: Valerie Jean-Baptiste MD at 14:35 EDT ,
[2024-04-18] MEDS: BENZOCAINE/MENTHOL 1 LOZENGE 2 LOZENGE MUCOUS MEM ×3 (15:02→19:28)
--- NOTE | 2024-04-18 16:40 | PCM.DC.SUM ---
Providers Date of Admission: 04/18/24 Primary Care Physician: Dr. Arnie Chiang MD Consultations 04/18/24 12:12 Consult: General Surgery Routine Consulting Provider: Bisi Dumont Reason for Consult: SBO EMERGENT Consult: No MD Notified: Yes Date Notified: 04/18/24 Time Notified: 09:57 Method of Notification: Verbal Reason For Visit: SBO Diagnosis Discharge Diagnosis (1) SBO (small bowel obstruction): Status: Acute Code(s): K56.609 - Unspecified intestinal obstruction, unspecified as to partial versus complete obstruction Plan Small bowel obstruction Likely due to adhesions NG tube was placed in ED. Continue with IV fluids. Pain control with IV narcotics, particularly hydromorphone. Antiemetics. General surgery is recommended transfer to tertiary facility, patient has been accepted by Dr. Garvey, colorectal surgery at the [facility]. No readily available beds at this point. General surgery here will be on consultation though it is understood that they would not be performing any surgery on the patient here but it is understood that they will be involved in regards to expediting transfer if necessary or reaching out to other institutions to see about accepting the patient. Initially patient was to be going to [facility] as that is where much of his care has been but it was unclear as to when the patient will actually be transferred as patient was in the queue and there was no definitive answer in regards to when the patient could go. Dr. Dumont had reached out to [facility] and was excepted by surgeon over there. Patient will be discharged to [facility] today. Chronic additions COPD: Not in exacerbation. Continue with bronchodilators. PAD: Hold clopidogrel on the off chance patient does require surgery. Tobacco abuse: Advised cessation. VTE prophylaxis: SCDs. Holding off on chemical prophylaxis in case patient will require surgery. CODE STATUS: Addressed with patient. Patient wished to be DNR Comfort Care arrest. Discussed with the patient's at bedside. Medications at Discharge Home Medications acetaminophen 300 mg-codeine 60 mg tablet 1 ea PO Q4H PRN PAIN 07/22/13 gabapentin 300 mg capsule 300 mg PO TID NERVE PAIN 03/07/16 atorvastatin 20 mg tablet 20 mg PO DAILY CHOLESTEROL 05/27/21 ibuprofen 800 mg tablet 800 mg PO Q8H PRN PAIN 05/27/21 prednisone 10 mg tablet 10 mg PO DAILY PRN ALLERGY SYMPTOMS 05/27/21 amlodipine 10 mg tablet 10 mg PO DAILY BLOOD PRESSURE 12/13/23 lisinopril 20 mg tablet 20 mg PO DAILY BLOOD PRESSURE 12/13/23 albuterol sulfate 90 mcg/actuation aerosol inhaler 2 puff inhalation Q4H PRN WHEEZING 04/17/24 clopidogrel 75 mg tablet 75 mg PO DAILY BLOOD THNNER 04/17/24 docusate sodium 100 mg capsule (Colace) 100 mg PO DAILY STOOL SOFTENER 04/17/24 ondansetron 4 mg disintegrating tablet 4 mg PO Q8H PRN NAUSEA 04/17/24 Hospital Course Operations None Procedures None Summary of Care Provided Hospital Course: Patient presents with abdominal pain. Patient was found to have small bowel obstruction. NG tube was placed in the emergency room. Patient has had a partial colectomy as well as cystectomy. Patient deemed complicated patient by general surgery. Initially, patient was excepted by the [facility] and was admitted to the hospitalist service as there were no readily the available beds. General surgery requested admission to hospital service but was also contingent on general surgery reaching out to hospitals in regards to discussing with an accepting physician. Dr. Dumont was able to find accepting physician at [facility] and they would have a bed available today. Patient was agreeable and patient will be discharged there today. Weight / BMI Weight Weight: 58.4 kg Body Mass Index (BMI) 20.1 ABG / Lab / Microbiology Data 04/18/24 10:17 04/18/24 10:17 Laboratory: Laboratory Results - last 24 hr 04/18/24 10:17: WBC 10.2, RBC 3.79 L, Hgb 10.9 L, Hct 34.9 L, MCV 92.1, MCH 28.8, MCHC 31.2 L, RDW Std Deviation 51.3 H, RDW Coeff of Cathryn 15.1 H, Plt Count 340, MPV 9.2, Immature Gran % (Auto) 0.200, Neut % (Auto) 86.5 H, Lymph % (Auto) 6.6 L, Young % (Auto) 6.1, Eos % (Auto) 0.1, Baso % (Auto) 0.5, Absolute Neuts (auto) 8.9 H, Absolute Lymphs (auto) 0.68 L, Nucleated RBC % 0, Sodium 140, Potassium 4.1, Chloride 107, Carbon Dioxide 29.0, Anion Gap 4 L, BUN 27 H, Creatinine 1.61 H, Est GFR (MDRD) Af Amer 54 L, Est GFR (MDRD) Non-Af 45 L, BUN/Creatinine Ratio 16.8, Glucose 107 H, Calcium 8.4 L Radiography Diagnostic Testing: Radiology Impression Abdomen/Pelvis CT 04/17/24 17:25 IMPRESSION: Findings consistent with small bowel obstruction most likely due to adhesions. 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 Electronically Signed: Kuldeep Dye MD at 19:26 EDT , KUB X-Ray 04/18/24 10:20 IMPRESSION: Persistent small bowel dilatation a 2. Small bowel obstruction. Electronically Signed: David Gonzalez MD at 11:37 EDT , KUB X-Ray 04/18/24 14:05 IMPRESSION: Satisfactory position of nasogastric tube with tip at the level of the stomach. Persistent small bowel obstruction. Electronically Signed: Valerie Jean-Baptiste MD at 14:35 EDT , Meaningful Use Info Meaningful Use Meaningful Use Diagnoses (Choose all that apply): None applicable Ischemic Stroke Statin Dosing Therapy Reference: STATIN DOSE THERAPY REFERENCE: * Patients > 75 years receive moderate or high dose statin therapy. * Patients 75 years or YOUNGER should receive HIGH intensity statin dose unless contraindicated. You will be required to document reason for non-treatment if statin daily dose does not meet guidelines. HIGH DOSE STATIN THERAPY DAILY Atorvastatin > than or = to 40 mg Rosuvastatin > than or = to 20 mg Amlodipine + Atorvastatin > than or = to 2.5/40 mg Ezetimibe + Simvastatin 10/80 mg Simvastatin 80mg Discharge Plan Admission Admit Date/Time: 04/18/24 09:54 Primary Reason for Your Visit: Small bowel obstruction Attending Provider: Geo Maxwell Primary Care Provider: Arnie Chiang Consulting Providers: Bisi Dumont Discharge Orders/Prescriptions Prescriptions: No Action atorvastatin 20 mg tablet 20 mg PO DAILY prednisone 10 mg tablet 10 mg PO DAILY PRN (Reason: ALLERGY SYMPTOMS ) ibuprofen 800 mg tablet 800 mg PO Q8H PRN (Reason: PAIN ) amlodipine 10 mg tablet 10 mg PO DAILY lisinopril 20 mg tablet 20 mg PO DAILY acetaminophen-codeine 1 EACH tablet 1 ea PO Q4H PRN (Reason: PAIN ) gabapentin 300 MG capsule 300 mg PO TID clopidogrel 75 mg tablet 75 mg PO DAILY ondansetron 4 mg tablet,disintegrating 4 mg PO Q8H PRN (Reason: NAUSEA ) albuterol sulfate 90 mcg/actuation HFA aerosol inhaler 2 puff inhalation Q4H PRN (Reason: WHEEZING ) docusate sodium [Colace] 100 mg capsule 100 mg PO DAILY Referrals / Follow Up: Arnie Chiang MD [Primary Care Provider] - Disposition Disposition (needs filled in before D/C Order can be placed): Acute Care Hospital Charges/Coding Visit Charges OBSV E&M: 05349 Observ/hosp same date L2
--- NOTE | 2024-04-18 17:45 | NURSING ---
Report called to nurse Najera for pt to be d/c to , [place] [address] room 2600.
[2024-04-19 00:31] VITALS: BP 147/86; PULSE 104; RESP 20; TEMP 36.4; O2SAT 96
[2024-04-19 00:32] VITALS: BP 147/86; PULSE 107; RESP 20; TEMP 36.4; O2SAT 96
[2024-04-19] MEDS: HYDROmorphone 1 MG/ML Syringe IV (00:51)
--- NOTE | 2024-04-19 01:06 | NURSING ---
Pt picked up by physician ambulance @ [id number]
== END 2024-04-19 00:45 | disposition short-term general hospital (02) | DRG 390 ==
LOC: ED 04-18 09:50 → PCU 04-18 10:00
PROVIDERS: Emergency Medicine; Emergency Provider Emergency Medicine; PCP Internal Medicine
DX: K56.50 Intestinal adhesions [bands], unspecified as to partial versus complete obstruction (principal); E78.00 Pure hypercholesterolemia, unspecified; J44.9 Chronic obstructive pulmonary disease, unspecified; M06.9 Rheumatoid arthritis, unspecified; K56.609 Unspecified intestinal obstruction, unspecified as to partial versus complete obstruction; Z93.3 Colostomy status; I71.43 Infrarenal abdominal aortic aneurysm, without rupture; I12.9 Hypertensive chronic kidney disease with stage 1 through stage 4 chronic kidney disease, or unspecified chronic kidney disease; N18.9 Chronic kidney disease, unspecified; E86.0 Dehydration; F17.210 Nicotine dependence, cigarettes, uncomplicated; I73.9 Peripheral vascular disease, unspecified; K21.9 Gastro-esophageal reflux disease without esophagitis; Z66 Do not resuscitate; Z79.02 Long term (current) use of antithrombotics/antiplatelets; Z79.899 Other long term (current) drug therapy; Z90.49 Acquired absence of other specified parts of digestive tract; Z85.51 Personal history of malignant neoplasm of bladder; Z85.46 Personal history of malignant neoplasm of prostate; Z85.038 Personal history of other malignant neoplasm of large intestine
CPT/HCPCS: 36415; 71275; 74018; 74174; 74177; 80048; 80053; 80076; 83605; 83690; 85025; 96361; 96374; 96375; 99252; 99283; 99285; J7030; Q9967; A4216; G0463; J2405

== ENCOUNTER 2024-05-28 09:00 | Outpatient (RCR) | payer MEDICARE, SELFPAY ==
--- NOTE | 2024-05-16 13:24 | HP.PTEVAL ---
Patient's Visit Information Visit Information Visit Information: LELA PHAM is a 74 year old M referred to Physical Therapy by FERNANDO MEDEIROS with a diagnosis of Unsteady gait. Date of Evaluation: 05/16/24 Physical Therapist: Juanjo Vazquez, PT, ATC Visit Plan Frequency: 1x/Week Duration: 2 Weeks Plan: Issue and educate pt on HEP of core and LE strengthening Subjective Subjective: Pt reports he had surgery for a small bowell obstruction approximately 2 1/2 weeks ago. Pt reports he was in the hospital for a total of 28 days where he was bedfast and didn't move. Pt reports he has become very debilitated over this time span. Pt reports his legs feel very weak and he is not able to ambulate very far until being fatigued. Pt reports he has a few steps to enter his house, which he needs help with negotiating them. Pt also notes he has stairs inside of his house that he has not attempted to negotiate secondary to weakness. Pt is retired at this time. Pt reports he is looing forwards to being able to perform yard work, going on walks, and spending time with his kids again. Pt denies any pain other than his normal aches and pains this date. 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 Objective Objective: Neuro: B LE sensation is WNL to light touch. B patellar reflex= 2/3 MMT: Pt is grossly 4-/5 throughout Gait: Pt is able to ambulate approximately 140 feet with rollator until needing to rest TUG test: 15.48 seconds Balance/Special Test Scores Lower Extremity Functional Score: 14 Goals Goal 1:: Pt will be I with a HEP in 2 PT visits Goal Time Frame: 2 Weeks Rehabilitation Potential Physical Therapy Diagnosis: Pt has LE weakness, limited ambulation, and intolerance for prolonged ambulation secondary to debility Rehabilitation Potential: Good Anticipated Interventions Patient/Client Instruction: Educate patient on: Condition and Plan of Care For the Purpose of:: To improve self management Therapeutic Exercise to Include: Strength training, Endurance training, Balance training and Dynamic Lumbar Stabilization For the Purpose of:: To improve muscle performance and motor function, To improve ability to perform ADL's and To increase tolerance to activity/condition/position Text: Thank you for the opportunity to evaluate your patient. For Medicare and Medicare HMO plans, please review the plan of care and approve it. It will need to be FAXED BACK to us at [phone] for Medicare purposes. For Medicare only, by signing this I certify the plan of care. Please let me know if there are questions or concerns regarding this plan of care. Physician Signature: Date:
--- NOTE | 2024-05-16 13:58 | HP.OTEVAL_ITS ---
Patient's Visit Information Visit Information Visit Information: LELA PHAM is a 74 year old M, referred to Occupational Therapy by FERNANDO MEDEIROS, with a diagnosis of difficulty walking. Date of Evaluation: 05/16/24 Occupational Therapist: Daily Mayfield, OTR/L, CHT Subjective Subjective: This 74 year old male arrives from PT with dx of difficulty walking- states he is debilitated due to being in hospital without about 30 days after having abdominal sx and having Urostomy pouches placed. pt arrives with ambulating with rollator. Pt states his endurance and walking is limited due to weakness of LE. feels UB is ok just endurance is a factor. Pt states with his high deductible he would like a home program and to initiate silver sneaker program. ADLs Comments: rollator for ambulation shower chair night lights assist as needed does state pts is eating better states she has noticed a increase in strength since he has returned home. states he is doing his own bathing and dressing well ROM ROM Comments: pt demo ROM of UB WNL Strength Shoulder: right 4/5 left 3+/5 Elbow: right 4/5 left 4/5 Laser Engineer: right 80# left 70# Strength Comments: pt demo with generalized weakness Sensation Sensation Comments: denies Quick DASH-Disab of Arm,Shoulder& Hand Quick DASH Score: 11.3625 Rehabilitation General Assessment: Pt demo with generalized weakness that is a safety concern with pts ambulation. This therapist ed. pt and spouse on use of safety eq. in home to support MOD is safely to decrease pts risk of falls. pt and spouse demo understanding. This therapist spoke with Physical Therapy and due to pts high co-pay pt is not receptive to attending therapy- agrees to one follow up visit with Physical therapy and will transition to a silver sneaker program. OT services will defer pt to Physical therapy at this time. pt and pts demo understanding and agree to POD. Visit Plan General Plan: pt to see Physical therapy and transition to silver sneakers edd were removed this date and pt and pts instructed in sings/symptoms of infection TEXT: Thank you for the opportunity to evaluate your patient. For Medicare and Medicare HMO plans, please review the plan of care and approve it. It will need to be FAXED BACK to us at [phone] for Medicare purposes. Please let me know if there are questions or concerns regarding this plan of care. Physician Signature: Date:
--- NOTE | 2024-05-28 09:58 | HP.PTDCSUM ---
Discharge Summary D/C summary: It has been my pleasure to treat LELA PHAM referred by KING COLUNGA, with the diagnosis of Unsteady gait for a total of 2 visit(s). Discharge Date: Please see the following information for a summary of their discharge status. Subjective Subjective: Pt reports he is sore from walking a lot yesterday Objective Objective/Function: Pt is now I with HEP Goals Goal 1:: Pt will be I with a HEP in 2 PT visits Goal Progress: Goal Met Plan Plan: Pt is now I with HEP D/C Information d/c sentence: If there are questions or concerns regarding this patient's physical therapy, please feel free to call me at [phone]. Thank you for the referral of this patient. Sincerely, Juanjo Vazquez, PT, ATC Balance/Gait/Functional tests Balance/Special Test Scores Lower Extremity Functional Score: 14
== END 2024-05-28 19:00 | disposition home or self-care (01) ==
LOC: PT 09:00
PROVIDERS: PCP Internal Medicine
DX: R26.2 Difficulty in walking, not elsewhere classified (principal); K56.609 Unspecified intestinal obstruction, unspecified as to partial versus complete obstruction
CPT/HCPCS: 97110; 97161; 97166

== ENCOUNTER → 2024-07-15 | Outpatient (CLI) | payer MEDICARE, SELFPAY ==
--- NOTE | 2024-07-15 09:34 | CDU_ITS ---
Reason For Study: Carotid stenosis Rt. Velocities/BP Lt. Velocities/BP Prox CCA 72.1/6.9 cm/sec. Prox CCA 72.9/11.3 cm/sec. Mid CCA 59.8/9.7 cm/sec. Mid CCA 64.1/15.7 cm/sec. Dist CCA 55.11/12.6 cm/sec. Dist CCA 76.2/14.6 cm/sec. Prox ICA 72.8/9 cm/sec. Prox ICA 104.7/18.8 cm/sec. Mid ICA 99.8/26.2 cm/sec. Mid ICA 185.1/44.6 cm/sec. Dist ICA 85.1/20 cm/sec. Dist ICA 101.6/13.8 cm/sec. Rt. ICA/CCA = 1.67. Lt. ICA/CCA = 2.89. Prox ECA 215.9/8.6 cm/sec. Prox ECA 159.5/6 cm/sec. Rt. Vert. 39.4 cm/sec. Lt. Vert. 47.6/11.3 cm/sec. Right Extracranial There is heterogeneous, irregular atherosclerotic plaque noted in the right common carotid artery. There is heterogeneous, irregular atherosclerotic plaque noted in the right internal carotid artery. There is heterogeneous, irregular atherosclerotic plaque noted in the right external carotid artery. Antegrade flow is noted in the right vertebral artery. Left Extracranial There is heterogeneous, irregular atherosclerotic plaque noted in the left common carotid artery. There is heterogeneous, irregular atherosclerotic plaque noted in the left internal carotid artery. There is heterogeneous, irregular atherosclerotic plaque noted in the left external carotid artery. Antegrade flow is noted in the left vertebral artery. Procedure Carotid Duplex 92224. This is a Carotid Duplex examination using B-mode, color flow and specral Doppler. Exam performed in department. VL/Carotid Duplex Ultrasound Interpretation Summary Mild (<50%) stenosis right extracranial internal carotid. Moderate (50-69%) stenosis left extracranial internal carotid. Patent and antegrade vertebrals bilaterally. Ordering Physician: Geo Clinton Referring Physician: Arnie Chiang M.D. Performed By: Darline Valadez RVT
== END | disposition home or self-care (01) ==
LOC: CVS 09:34
PROVIDERS: PCP Internal Medicine; Referring Provider Surgery Trauma Surgery; Visit Provider Surgery Trauma Surgery
DX: I65.23 Occlusion and stenosis of bilateral carotid arteries (principal)
CPT/HCPCS: 93880

== ENCOUNTER → 2024-12-13 | Outpatient (CLI) | payer MEDICARE, SELFPAY ==
--- NOTE | 2024-12-13 08:54 | ART_ITS ---
Reason For Study Reason For Study: HX BLE Iliac Stents Procedure A bilateral lower extremity continuous wave Doppler with analog waveform analysis,segmental pressures,and ankle brachial indexes without exercise. Left Segmental Pressures Left brachial= 134mmHg. Left high thigh = 127mmHg. Left low thigh = 79mmHg. Left calf = 90mmHg. Left posterior tibial artery = 79mmHg. Left dorsalis pedis artery = 73mmHg. Left digit = 65 mmHg. The left posterior tibial artery waveforms are biphasic. The left dorsalis pedis waveforms are biphasic. Right Segmental Pressures Right high thigh = 117mmHg. Right low thigh = 117mmHg. Right calf = 89mmHg. Right posterior tibial artery = 95mmHg. Right dorsalis pedis artery = 93mmHg. Right digit = 46 mmHg. The right posterior tibial artery waveforms are biphasic. The right dorsalis pedis waveforms are biphasic. Indices The right ankle brachial index by the posterior tibial artery is 0.71. The right ankle brachial index by the dorsalis pedis is 0.69. The right digital-brachial index is 0.34. The left ankle brachial index by the posterior tibial artery is 0.59. The left ankle brachial index by the dorsalis pedis is 0.54. The left digital-brachial index is 0.49. VL/Lower Ext Art Exam w/o Exercis Interpretation Summary Right BLAIR 0.71, moderate arterial insuffiencey. Doppler/PVR waveforms and segme ntal pressures reveal aorto-iliac, distal SFA/popliteal disease. Left BLAIR 0.59, moderate arterial insufficiency. Doppler/PVR waveforms and segme ntal pressures reveal aorto-iliac, proximal femoral disease. Ordering Physician: Yi Lockhart Referring Physician: Arnie Chiang M.D. Performed By: Jordon Chopra RVT
--- NOTE | 2024-12-13 08:54 | AAVD_ITS ---
Reason For Study Reason For Study: HX AAA Aorta Measurements Aorta Doppler Measurements Proximal aorta measures3.23 x 2.68cm. in cross-sectional Peak systolic flow velocities within the proximal aorta axis. measure 121.6 cm/sec. Proximal aorta measures2.58cm. in longitudinal axis. Peak systolic flow velocities within the mid aorta measure Mural thrombus noted at prox / mid AO 63.6 cm/sec. True Lumen measures 1.76cm x 1.41cm x 1.49cm. Peak systolic flow velocities within the distal aorta Mid aorta measures2.98 x 3.15cm. in cross-sectional axis. measure 39.5 cm/sec. Mid aorta measures2.95cm. in longitudinal axis. Distal aorta measures3.49 x 3.77cm. in cross-sectional axis. Distal aorta measures3.56cm. in longitudinal axis. Left Iliac Artery Left iliac artery measures 0.66 x 0.60 cm. in the cross-sectional axis. Left iliac artery measures 0.66 cm. in the longitudinal axis. Peak systolic velocity in the left iliac artery measures 171.6 cm/sec. Right Iliac Artery Right iliac artery measures 0.73 x 0.68 cm. in the cross-sectional axis. Right iliac artery measures 0.57 cm. in the longitudinal axis. Peak systolic velocity in the right iliac artery measures 177.5 cm/sec. Procedure Aorta IVC Iliac vasculature or bypass grafts 43889. The exam was diagnostic. Exam performed in department. VL/Abd Aortic/IVC Duplex scan Interpretation Summary Aorta patent, 3.77 cm aneurysm present. Right iliac artery patent, normal caliber Left iliac artery patent, normal caliber Ordering Physician: Yi Lockhart Referring Physician: Arnie Chiang M.D. Performed By: Jordon Chopra RVT
--- NOTE | 2024-12-13 08:54 | CDU_ITS ---
Reason For Study Reason For Study: Lt Carotid Stenosis Rt. Velocities/BP Lt. Velocities/BP Prox CCA 81.5/10.2 cm/sec. Prox CCA 79.8/13.8 cm/sec. Mid CCA 76.0/15.7 cm/sec. Mid CCA 78.7/17.1 cm/sec. Dist CCA 63.2/13.9 cm/sec. Dist CCA 78.7/19.3 cm/sec. Prox ICA 139.9/32.1 cm/sec. Prox ICA 262.5/70.2 cm/sec. Mid ICA 96.1/24.8 cm/sec. Mid ICA 242.9/58.5 cm/sec. Dist ICA 60.1/13.8 cm/sec. Dist ICA 108.6/10.1 cm/sec. Rt. ICA/CCA = 1.8. Lt. ICA/CCA = 3.3. Prox ECA 135.2/12.3 cm/sec. Prox ECA 186.4/10.1 cm/sec. Rt. Vert. 25.0/5.8 cm/sec. Lt. Vert. 62.5/18.0 cm/sec. Right Extracranial There is heterogeneous, irregular atherosclerotic plaque noted in the right common carotid artery. There is heterogeneous, irregular atherosclerotic plaque noted in the right internal carotid artery. There is heterogeneous, irregular atherosclerotic plaque noted in the right external carotid artery. Antegrade flow is noted in the right vertebral artery. Left Extracranial There is heterogeneous, irregular atherosclerotic plaque noted in the left common carotid artery. There is heterogeneous, irregular atherosclerotic plaque noted in the left internal carotid artery. There is heterogeneous, irregular atherosclerotic plaque noted in the left external carotid artery. Antegrade flow is noted in the left vertebral artery. Procedure Carotid Duplex 44331. This is a Carotid Duplex examination using B-mode, color flow and specral Doppler. The exam was diagnostic. Exam performed in department. VL/Carotid Duplex Ultrasound Interpretation Summary Moderate (50-69%) stenosis right extracranial internal carotid. Severe (>70%) stenosis left extracranial internal carotid. Patent and antegrade vertebrals bilaterally. Ordering Physician: Geo Clinton Referring Physician: Arnie Chiang M.D. Performed By: Jordon Chopra RVT
== END | disposition home or self-care (01) ==
LOC: CVS 08:51
PROVIDERS: PCP Internal Medicine; Referring Provider Physician Assistant; Visit Provider Physician Assistant
DX: I71.43 Infrarenal abdominal aortic aneurysm, without rupture (principal); I65.23 Occlusion and stenosis of bilateral carotid arteries; I73.9 Peripheral vascular disease, unspecified; Z98.890 Other specified postprocedural states
CPT/HCPCS: 93880; 93923; 93978

== ENCOUNTER → 2025-06-25 | Outpatient (CLI) | payer MEDICARE, SELFPAY ==
--- NOTE | 2025-06-25 09:38 | CDU_ITS ---
Reason For Study Reason For Study: Lt ICA Stenosis Rt. Velocities/BP Lt. Velocities/BP Prox CCA 74.0/11.6 cm/sec. Prox CCA 67.4/10.7 cm/sec. Mid CCA 73.0/10.7 cm/sec. Mid CCA 65.7/11.6 cm/sec. Dist CCA 47.4/8.1 cm/sec. Dist CCA 74.0/9.7 cm/sec. Prox ICA 70.4/12.6 cm/sec. Prox ICA 330.7/83.6 cm/sec. Mid ICA 139.4/29.8 cm/sec. Mid ICA 377.8/99.3 cm/sec. Dist ICA 101.0/24.3 cm/sec. Dist ICA 86.4/17.0 cm/sec. Rt. ICA/CCA = 1.9. Lt. ICA/CCA = 5.6. Prox ECA 279.7/0.0 cm/sec. Prox ECA 145.5/0.0 cm/sec. Rt. Vert. 29.0/6.4 cm/sec. Lt. Vert. 56.9/0.0 cm/sec. Right Extracranial There is heterogeneous, irregular atherosclerotic plaque noted in the right common carotid artery. There is heterogeneous, irregular atherosclerotic plaque noted in the right internal carotid artery. There is heterogeneous, irregular atherosclerotic plaque noted in the right external carotid artery. Antegrade flow is noted in the right vertebral artery. Left Extracranial There is heterogeneous, irregular atherosclerotic plaque noted in the left common carotid artery. There is heterogeneous, irregular atherosclerotic plaque noted in the left internal carotid artery. There is heterogeneous, irregular atherosclerotic plaque noted in the left external carotid artery. Antegrade flow is noted in the left vertebral artery. Procedure Carotid Duplex 85068. This is a Carotid Duplex examination using B-mode, color flow and specral Doppler. Exam performed in department. VL/Carotid Duplex Ultrasound Interpretation Summary Moderate (50-69%) stenosis right extracranial internal carotid. Severe (>70%) stenosis left extracranial internal carotid. Patent and antegrade vertebrals bilaterally. Ordering Physician: Yi Lockhart Referring Physician: Arnie Chiang M.D. Performed By: Mariama Garsia RVT
== END | disposition home or self-care (01) ==
LOC: CVS 09:38
PROVIDERS: PCP Internal Medicine; Referring Provider Physician Assistant; Visit Provider Physician Assistant
DX: I65.22 Occlusion and stenosis of left carotid artery (principal)
CPT/HCPCS: 93880

== ENCOUNTER → 2025-07-11 | Outpatient (CLI) | payer MEDICARE, SELFPAY ==
--- NOTE | 2025-07-11 07:45 | CT_ITS ---
PROCEDURE: CTA HEAD AND NECK W/ CONTRAST 07/11/2025 CT head without contrast: REASON FOR EXAM: CAROTID STENOSIS TECHNIQUE: Procedure Code: [id number].HDNCK Modality: CT Procedure: CTA HEAD AND NECK W/ CONTRAST Multiplanar Sagittal and Coronal images were obtained. CONTRAST: Isovue 370 VOLUME: 75 mL One or more dose reduction techniques were used (e.g., Automated exposure control, adjustment of the mA and/or kV according to patient size, use of iterative reconstruction technique). RADIATION DOSE SUMMARY: CTDlvol: 17.29 mGy DLP: 1529.96 mGycm COMPARISON: Duplex ultrasound of the carotids June 25, 2025. FINDINGS: CT head: Parenchymal volume loss consistent with brain atrophy. Diffuse hypodensities in the white matter which are nonspecific but most likely due to chronic small-vessel ischemia. No mass-effect or midline shift. No acute territorial infarction. No intracranial hemorrhage. No ventriculomegaly. The orbits are unremarkable. The paranasal sinuses and mastoid cells are clear. Aortic Arch: Atherosclerotic calcifications without significant stenosis. Brachiocephalic and Subclavians: No significant stenosis. RIGHT Carotid: Right CCA: No significant stenosis. Right ICA: Atherosclerotic calcifications at the carotid bulb causing 50% stenosis of the right internal carotid artery. Maximum stenosis (NASCET): 50 % Right ECA: Severe narrowing proximally. LEFT Carotid: Left CCA: No significant stenosis. Left ICA: Atherosclerotic calcifications the carotid bulb and the proximal left internal carotid artery. Maximum stenosis (NASCET): 65 % Left ECA: Severe narrowing proximally. Vertebrals: Patent. RIGHT Vertebral: Patent. LEFT Vertebral: Patent. Anatomy: Patent. Aneurysm or avm: None. Anterior cerebral arteries: Unremarkable: Middle cerebral arteries: Unremarkable. Basilar artery: Unremarkable. Posterior cerebral arteries: Unremarkable. Other major branches of the posterior circulation: Patent. Major venous structures: No evidence thrombosis. Other findings: Neck: Unremarkable. Lungs: Clear. 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 No acute bony abnormalities. CT/CTA Head AND Neck W/ Contrast IMPRESSION: Atherosclerotic calcifications causing 50% stenosis of the right internal carot id artery and 65% stenosis of the left internal carotid artery. No intracranial significant stenosis or aneurysm. Reading Location: [id number]
--- OUTSIDE RECORDS SUMMARY | 2025-07-11 07:47 | XMS RPT_ITS | CCD ---
Author Organization [facility] Care Team Providers Care Inspector Raw Quartz Name Role Phone Ochoa Tyson MD Unavailable Saba Stone Unavailable Unavailable Jenna Lacy Unavailable Unavailable Arnie Chiang MD Primary Care Provider Arnie Chiang MD Primary Care Provider Андрей VELASQUEZ, Arnie Barnhart Primary Care Provider Dr. Arnie Chiang Primary Care Provider Cemichelle, Dr. Ochoa Earl Attending Provider Cemichelle, Dr. Ochoa Earl Referring Provider Dr. Arnie Chiang Referring Provider Cemichelle, Dr. Ochoa Earl Other Provider Arnie Chiang MD Primary Care Provider [phone] NEVILLE GRECO Attending ROWENA Alonzo Referring Unavailable ARNIE CHIANG Primary Care Unavailable ADRIÁN YARBROUGH Attending Unavailable ARNIE CHIANG Primary Care Unavailable JARED GASPAR Admitting Unavailable JARED GASPAR Attending Unavailable ZAID VERONICA Referring Paige Sarabia HYDRO STATION SUPERVISOR.Rowena JOLLY Unavailable Unavailable Primary Care Provider ROWENA Alonzo Referring Unavailable ARNIE CHIANG Primary Care Unavailable ROWENA SARABIA Attending Unavailable ROWENA SARABIA Referring Unavailable ARNIE CHIANG Primary Care Unavailable NO, ROWENA M Referring Unavailable CHINAG, REGGIE Primary Care Unavailable CHIANG, REGGIE Primary Care Unavailable CHUN KIRK Attending Unavailable NO, ROWENA M Attending Unavailable CHIANG, REGGIE Primary Care Unavailable NO, ROWENA M Attending Unavailable CHIANG, REGGIE Primary Care Unavailable NO, ROWENA M Referring Unavailable CHIANG, REGGIE Primary Care Unavailable NO, ROWENA M Referring Unavailable CHIANG, REGGIE Primary Care Unavailable NO, ROWENA M Attending Unavailable NO, ROWENA M Referring Unavailable CHIANG, REGGIE Primary Care Unavailable CHIANG, REGGIE Attending Unavailable NO, ROWENA M Referring Unavailable CHIANG, REGGIE Primary Care Unavailable NO, ROWENA M Referring Unavailable CHIANG, REGGIE Primary Care Unavailable NO, ROWENA M Referring Unavailable CHIANG, REGGIE Primary Care Unavailable NO, ROWENA M Attending Unavailable NO, ROWENA M Referring Unavailable CHIANG, REGGIE Primary Care Unavailable Dr. Arnie Chiang MD Primary Care Provider Yi Ramirez Attending Provider [phone] Chantelle RODRIGUEZ, Yi Referring Provider [phone] Geo Clinton MD Attending Provider Chiang, Arnie Primary Care Unavailable Lockhart, Yi Attending Unavailable Lockhart, Yi Referring Unavailable Lockhart, Yi Attending Unavailable Lockhart, Yi Referring Unavailable Chiang, Arnie Primary Care Unavailable Chiang, Arnie Primary Care Unavailable Lockhart, Yi Referring Unavailable Lockhart, Yi Attending Unavailable Mary Beth, Geo Attending Unavailable Chiang, Arnie Primary Care Unavailable Mary Beth, Geo Referring Unavailable Chiang, Arnie Primary Care Unavailable Mary Beth, Geo Attending Unavailable Mary Beth, Geo Attending Unavailable Mary Beth, Geo Referring Unavailable Chiang, Arnie Primary Care Unavailable Lockhart, Yi Referring Unavailable Chiang, Arnie Primary Care Unavailable Mary Beth, Geo Attending Unavailable Chiang, Arnie Primary Care Unavailable Ochoa Tyson Referring Unavailable Lockhart, Yi Attending Unavailable Allergies Allergy Classification Reported Allergen(s) Allergy Type Date of Onset Reaction(s) Facility (3 sources) sulfamethoxazole / trimethoprim drug allergy 7 rash [facility] Work Phone: (20 sources) Sulfamethoxazole / Trimethoprim; Translations: [SULFAMETHOXAZOLE-TR IMETHOPRIM] Drug Allergy 6 Other: See Comments, Nausea/vomitin g [facility] (3 sources) Sulfamethoxazole Drug Allergy 1 Other [facility] Comment on above: URINARY RETENTION (3 sources) Trimethoprim Drug Allergy 1 Other [facility] Comment on above: URINARY RETENTION (1 source) Sulfamethoxazole Drug Allergy 4 [facility] (1 source) Trimethoprim Drug Allergy 4 [facility] Medications Current Medications Medication Drug Class(es) Dates Sig (Normalized) Sig (Original) acetaminophen 325 mg oral tablet (4 sources) Start: 05-07-2024 Start: 04-30-2024 End: 05-01-2024 Start: 04-19-2024 End: 04-20-2024 acetaminophen 300 mg / codeine phosphate 60 mg oral tablet (20 sources) Opioid Agonist Start: 10-01-2024 End: 07-17-2025 acetaminophen-codeine (TYLENOL-COD #4) 300-60 mg per tablet Indications: Cervicalgia Take 1 tablet by mouth every 4 hours as needed (30 day supply w/ 2 refills.) for up to 90 days. 150 tablet 2 04/18/2025 07/17/2025 Active Start: 06-25-2024 End: 09-23-2024 acetaminophen-codeine (TYLEN OL-COD #4) 300-60 mg per tablet Indications: Cervicalgia Take 1 tablet by mouth every 4 hours as needed (30 day supply w/ 2 refills.) for up to 90 days. 150 tablet 2 06/25/2024 09/23/2024 Active Start: 05-20-2023 End: 06-22-2024 acetaminophen-codeine (TYLEN OL-COD #4) 300-60 mg per tablet Indications: Cervicalgia Take 1 tablet by mouth every 4 hours as needed (30 day supply w/ 2 refills.) for up to 90 days. 150 tablet 2 02/05/2024 06/22/2024 Discontinued Start: 05-15-2017 TYLENOL WITH C ODEINE #3 TABS 1 tab every 4 hours as needed ACETAMINOPHEN-CODEINE TABS [id number] Saba Stone Start: 05-15-2017 TYLENOL WITH C ODEINE #3 TABS 1 tab every 4 hours as needed ACETAMINOPHEN-CODEINE TABS [id number] Sbaa Stone Start: 07-22-2013 End: 04-17-2023 acetaminophen-codeine (TYLEN OL-COD #4) 300-60 mg per tablet Indications: Cervicalgia Take 1 tablet by mouth every 4 hours as needed (30 day supply w/ 2 refills.) for up to 90 days. 150 tablet 2 01/17/2023 04/17/2023 Active Start: 07-22-2013 Acetaminophen- Codeine Active 1 EACH PO EVERY 4 HOURS NEEDED July 21, 2013 11:00pm End: 05-10-2024 Comment on above: Take 1 tablet by anita th every 4 hours as needed (30 day supply w/ 2 refills.) for up to 90 days. Take 1 tablet by anita th every 4 hours as needed (30 day supply w/ 2 refills.) for up to 90 days. Do not start before May 20, 2023. Take 1 tablet by anita th every 4 hours as needed (30 day supply w/ 2 refills.) for up to 90 days. Do not start before August 18, 2023. Take 1 tablet by anita th every 4 hours as needed (30 day supply w/ 2 refills.) for up to 90 days. Do not start before January 15, 2024. [id number] 200 actuat albuterol 0.09 mg/actuat metered dose inhaler (20 sources) beta2-Adrenergic Agonist Start: End: take 2 puff(s) by inhalation every four hours as needed for wheezing albuterol HFA (VENTOLIN HFA) 90 mcg/actuation inhaler Indications: Chronic bronchitis, unspecified chronic bronchitis type (HCC) Inhale 2 Puffs as instructed every 4 hours as needed for wheezing/shortness of breath. 3 Each 1 10/22/2024 Active Start: 04-17-2024 Albuterol Sulf ate 90 mcg/actuation HFA aerosol inhaler Active 2 NMA INHALATION Q4H as needed for WHEEZING April 17, 2024 12:00am Start: 03-28-2019 End: 05-15-2024 take 2 puff(s) by inhalation every four hours as needed for wheezing albuterol HFA (VENTOLIN HFA) 90 mcg/actuation inhaler Inhale 2 Puffs as instructed every 4 hours as needed for wheezing/shortness of breath. 3 Each 0 03/07/2024 05/15/2024 Discontinued Comment on above: Inhale 2 Puffs as in structed every 4 hours as needed for Wheezing/Shortness of Breath. amLODIPine 10 mg oral tablet (20 sources) Dihydropyridine Calcium Channel David Start: 12-13-2023 End: 12-13-2023 Amlodipine Discontinued MG PO December 13, 2023 12:00am December 13, 2023 9:25am Start: 05-15-2017 End: 01-15-2025 take 1 tablet by mouth once daily amLODIPine (NORVASC) 10 mg tablet Indications: Essential hypertension Take 1 tablet by mouth once daily. 90 tablet 3 01/15/2025 Active Start: 07-22-2013 End: 12-13-2023 take 2 tablets by mouth at bedtime Amlodipine 5 MG tablet Discontinued 10 mg PO AT BEDTIME July 22, 2013 12:00am December 13, 2023 10:25am Start: 07-22-2013 End: 12-13-2023 take 10 mg by mouth at bedtime Amlodipine Discontinued 10 MG PO AT BEDTIME July 21, 2013 11:00pm December 13, 2023 9:25am Comment on above: Take 1 tablet by anita th once daily. atorvastatin 20 mg oral tablet (20 sources) HMG-CoA Reductase Inhibitor Start: 2020 End: 2024 take 1 tablet by mouth once daily atorvastatin (LIPITOR) 20 mg tablet Indications: Pure hypercholesterolemia Take 1 tablet by mouth once daily. 90 tablet 3 01/15/2025 Active Comment on above: Take 1 tablet by anita th once daily. benzocaine 15 mg / menthol 3.6 mg oral lozenge (1 source) Standardized Chemical Allergen Start: 2023 bisacodyl 10 mg rectal suppository (1 source) Stimulant Laxative Start: 2023 clopidogrel 75 mg oral tablet (20 sources) P2Y12 Platelet Inhibitor Start: 2018 End: 2024 take 1 tablet by mouth once daily clopidogrel (PLAVIX) 75 mg tablet Indications: Peripheral vascular disease, unspecified Take 1 tablet by mouth once daily. Next refill should be from vascular surgeon 90 tablet 04/18/2025 Active Comment on above: Take 1 tablet by [facility] once daily. Post stents. diazePAM 2 mg oral tablet (1 source) Benzodiazepine Start: 2023 docusate sodium 100 mg oral capsule (2 sources) Start: 2023 take 1 capsule by mouth once daily Docusate Sodium (Colace) 100 mg capsule Active 100 mg PO DAILY April 17, 2024 12:00am STOOL SOFTENER docusate sodium 50 mg / sennosides, skilled nursing 8.6 mg oral tablet (1 source) Start: 2023 End: 2023 ferrous sulfate 325 mg oral tablet (14 sources) Start: 2024 End: 2024 take 1 tablet by mouth once daily ferrous sulfate 325 mg (65 mg iron) tablet Take 1 tablet by mouth once daily. 30 tablet 04/29/2025 Active gabapentin 600 mg oral tablet (20 sources) Anti-epileptic Agent Start: 2024 End: 2025 take 1 tablet by mouth three times daily gabapentin (NEURONTIN) 600 mg tablet Indications: Polyneuropathy following chemotherapy (HCC) Take 1 tablet by mouth three times a day. 270 tablet 3 01/15/2025 01/15/2026 Active Start: 07-07-2021 End: 10-22-2025 take 2 capsules by mouth three times daily gabapentin (NEURONTIN) 300 mg capsule Indications: Polyneuropathy following chemotherapy (HCC) Take 2 capsules by mouth three times a day. 540 capsule 3 01/15/2025 01/15/2025 Discontinued (Availability) Start: 05-15-2017 take 3 tablets by [facility] twice daily GABAPENTIN 300 MG CAPS Three tablets by mouth twice a day GABAPENTIN [id number] Saba Stone Start: 03-07-2016 take 1 capsule by [facility] three times daily Gabapentin 300 MG capsule Active 300 mg PO THREE TIMES A DAY March 07, 2016 12:00am NERVE PAIN Start: 03-07-2016 take 300 mg by mouth five times daily Gabapentin Active 300 MG PO 5 TIMES DAILY March 06, 2016 11:00pm Comment on above: Take 2 capsules by m out three times daily for 360 days. 1 ml heparin sodium, porcine 5000 unt/ml injection (1 source) Unfractionated Heparin, Anti-coagulant Start: 04-19-2024 inject 5000 [IU] by subcutaneous injection every eight hours 1 ml HYDROmorphone hydrochloride 1 mg/ml cartridge (6 sources) Opioid Agonist Start: 05-07-2024 Start: 04-19-2024 End: 04-30-2024 hydrOXYzine hydrochloride 25 mg oral tablet (5 sources) Antihistamine Start: 07-02-2025 take 1-2 tablets by mouth at bedtime as needed hydrOXYzine HCl (ATARAX) 25 mg tablet Indications: Other insomnia Take 1-2 tablets by mouth at bedtime as needed (insomnia). 30 tablet 07/02/2025 Active Start: 04-27-2025 End: 07-01-2025 take 1-2 tablets by mouth at bedtime as needed hydrOXYzine HCl (ATARAX) 25 mg tablet Indications: Other insomnia Take 1-2 tablets by mouth at bedtime as needed (insomnia). 04/29/2025 07/01/2025 Discontinued ibuprofen 800 mg oral tablet (20 sources) Nonsteroidal Anti-inflammatory Drug Start: 05-07-2024 End: 05-09-2024 Start: 05-27-2021 End: 01-15-2025 take 1 tablet by mouth three times daily as needed for pain ibuprofen (MOTRIN) 800 mg tablet Indications: Cervicalgia Take 1 tablet by mouth three times a day as needed for pain. 270 tablet 3 01/15/2025 Active Start: 05-27-2021 take 1 tablet by anita th every eight hours as needed for pain Ibuprofen 800 mg tablet Active 800 mg PO Q8H as needed for PAIN May 27, 2021 12:00am Start: 05-15-2017 take 800 mg by mouth every eight hours HM IBUPROFEN IB 200 MG TABS 800mg three times daily IBUPROFEN [id number] Saba Stone Start: 07-22-2013 take 800 mg by mouth three times daily as needed Ibuprofen Active 800 MG PO 3 TIMES DAILY NEEDED July 21, 2013 11:00pm Comment on above: Take 1 tablet by anita three times daily as needed for pain. Take 1 tablet by anita th three times a day as needed for pain. lidocaine 0.04 mg/mg medicated patch (1 source) Antiarrhythmic, Amide Local Anesthetic Start: 04-30-2024 lisinopril 20 mg oral tablet (20 sources) Angiotensin Converting Enzyme Inhibitor Start: 12-13-2023 End: 12-13-2023 Lisinopril Discontinued MG PO December 13, 2023 12:00am December 13, 2023 9:25am Start: 10-20-2023 End: 01-15-2025 take 1 tablet by mouth once daily lisinopril (ZESTRIL) 20 mg tablet Indications: Essential hypertension Take 1 tablet by mouth once daily. 90 tablet 3 01/15/2025 Active Start: 05-27-2021 End: 12-13-2023 take 1 tablet by mouth once daily Lisinopril 10 mg tablet Discontinued 10 mg PO DAILY May 27, 2021 12:00am December 13, 2023 10:25am Start: 05-15-2017 take 1 tablet by anita once daily LISINOPRIL 5 MG TABS One tablet by mouth daily LISINOPRIL [id number] Saba Stone Comment on above: Take 1 tablet by anita once daily. menthol 0.0044 mg/mg / zinc oxide 0.206 mg/mg topical ointment (12 sources) Start: Menthol-Zinc Oxide (CALMOSEPTINE) 0.44-20.6 % Indications: Decubitus ulcer of sacral region, stage 1 Apply to affected area once daily as needed. 10/22/2024 Active Multivitamin preparation (1 source) Start: take 1 tablet by mouth once daily Multivitamin Active 1 TABLET PO DAILY December 27, 2023 12:00am ofloxacin 3 mg/ml ophthalmic solution (2 sources) Quinolone Antimicrobial Start: End: take 1 drop(s) into the eye(s) four times daily ofloxacin (OCUFLOX) 0.3 % ophthalmic solution Indications: Acute conjunctivitis of right eye, unspecified acute conjunctivitis type Use 1 drop in the right eye four times daily for 7 days. 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 90 tablet 0 05/10/2022 Active Start: 04-11-2014 End: 05-03-2018 take 1 tablet by mouth every eight hours as needed for nausea Ondansetron Hcl 8 MG tablet Discontinued 8 mg PO EVERY 8 HOURS NEEDED as needed for Nausea April 11, 2014 12:00am May 03, 2018 1:28pm Comment on above: Take 1 tablet by anita every 8 hours as needed for Nausea/Vomiting. oxyCODONE hydrochloride 5 mg oral tablet (3 sources) Opioid Agonist Start: 05-07-20 End: 05-15-20 polyethylene glycol [id number] mg powder for oral solution (1 source) Osmotic Laxative Start: 05-07-20 predniSONE 10 mg oral tablet (20 sources) Start: 07-22-20 End: 04-18-20 take 1 tablet by mouth once daily as needed predniSONE (DELTASONE) 10 mg tablet Indications: Cervicalgia Take 1 tablet by mouth once daily as needed (joint swelling). 90 tablet 04/18/2025 Active Comment on above: Take 1 tablet by anita once daily as needed (joint swelling). tamsulosin hydrochloride 0.4 mg oral capsule (1 source) alpha-Adrenergic David Start: 03-07-20 16 take 0.4 mg by mouth once daily Tamsulosin Active 0.4 MG PO DAILY March 06, 2016 11:00pm (1 source) Start: 04-19-20 24 Completed/Discontinued Medications Medication Drug Class(es) Dates Sig (Normalized) Sig (Original) acetaminophen 500 mg / diphenhydrAMINE hydrochloride 25 mg oral tablet (20 sources) Histamine-1 Receptor Antagonist End: 05-17-2024 take 2 tablets by mouth every twenty-four hours as needed diphenhydrAMINE-Ac etaminophen 25-500 mg tab Take 2 tablets by mouth at bedtime as needed. 0 05/17/2024 Discontinued Comment on above: Take 2 tablets by [facility] at bedtime as needed. acetaminophen 325 mg / oxyCODONE hydrochloride 5 mg oral tablet (3 sources) Opioid Agonist Start: 03-12-2016 End: 05-03-2018 Oxycodone-Acetamin ophen 1 TABLET tablet Discontinued 1 - 2 {tbl} PO EVERY 6 HOURS NEEDED as needed for Pain March 12, 2016 12:00am May 03, 2018 1:28pm Start: 03-12-2016 End: 05-03-2018 take 1 tablet by mouth every six hours as needed Oxycodone-Acetaminophen Discontinued 1 - 2 TABLET PO EVERY 6 HOURS NEEDED March 11, 2016 11:00pm May 03, 2018 12:28pm 500 ml albumin human, skilled nursing 50 mg/ml injection (1 source) Human Serum Albumin Start: 05-01-2024 End: 05-01-2024 calcium chloride 0.001 meq/m l / glucose 50 mg/ml / potassium chloride 0.004 meq/ml / sodium chloride 0.103 meq/ml / sodium lactate 0.028 meq/ml injectable solution (1 source) Start: 04-19-2024 End: 04-20-2024 calcium chloride 0.0014 meq/ ml / potassium chloride 0.004 meq/ml / sodium chloride 0.103 meq/ml / sodium lactate 0.028 meq/ml injectable solution (9 sources) Start: 04-25-2024 End: 05-02-2024 Start: 04-23-2024 End: 04-23-2024 Start: 04-20-2024 End: 04-23-2024 ciprofloxacin 250 mg oral tablet (3 sources) Quinolone Antimicrobial Start: 03-12-2016 End: 05-03-2018 take 1 tablet by mouth twice daily Ciprofloxacin Hcl 250 MG tablet Discontinued 250 mg PO TWICE A DAY 10 March 12, 2016 12:00am May 03, 2018 1:27pm cyclobenzaprine hydrochloride 10 mg oral tablet (3 sources) Muscle Relaxant Start: 07-22-2013 End: 05-06-2019 take 1 tablet by mouth twice daily as needed for pain Cyclobenzaprine 10 MG tablet Discontinued 10 mg PO TWICE DAILY NEEDED as needed for Pain July 22, 2013 12:00am May 06, 2019 1:11pm folic acid 1 mg oral tablet (3 sources) Start: 07-22-2013 End: 05-27-2021 take 1 tablet by mouth once daily as needed Folic Acid 1 MG tablet Discontinued 1 mg PO DAILY NEEDED as needed for Not Specified July 22, 2013 12:00am May 27, 2021 9:44am hydrocortisone acetate 25 mg rectal suppository (3 sources) Corticosteroid Start: 07-22-2013 End: 07-29-2013 take 25 mg rectal route once daily as needed for pain Hydrocortisone Acetate (Anusol Hc) 25 MG Suppos. Discontinued 25 mg RECTAL DAILY NEEDED as needed for Pain July 22, 2013 12:00am July 29, 2013 6:24am hydromorphone FELT HANGER 0.5 mg/mL in NS opioid naive over 70 or at risk (1 source) Start: 04-30-2024 End: 05-07-2024 insulin lispro 100 unt/ml injectable solution (1 source) Insulin Analog Start: 04-20-2024 End: 05-08-2024 labetalol hydrochloride 5 mg/ml injectable solution (1 source) beta-Adrenergic David Start: 05-05-2024 End: 05-07-2024 take 10 mg intravenously every six hours as needed 10 ml methocarbamol 100 mg/ml injection (1 source) Muscle Relaxant Start: 05-07-2024 End: 05-07-2024 take 500 mg intravenously every eight hours 2 ml metoclopramide 5 mg/ml injection (1 source) Dopamine-2 Receptor Antagonist Start: 04-24-2024 End: 04-30-2024 Multivitamin tablet (1 source) Start: 12-27-2023 End: 04-17-2024 Multivitamin tablet Discontinued 1 {tbl} PO DAILY December 27, 2023 1:00am April 17, 2024 6:17pm HEALTH MAINTENANCE omeprazole 20 mg delayed release oral capsule (3 sources) Proton Pump Inhibitor Start: 04-11-2014 End: 05-27-2021 take 1 capsule by mouth twice daily as needed for gastroesophageal reflux disease Omeprazole 20 MG capsule Discontinued 20 mg PO TWICE DAILY NEEDED as needed for Heartburn Or Indigestion April 11, 2014 12:00am May 27, 2021 9:44am phenol 14 mg/ml mucosal spray (2 sources) Start: 04-19-2024 End: 05-01-2024 piperacillin 2000 mg / tazobactam 250 mg injection (1 source) Penicillin-class Antibacterial, beta Lactamase Inhibitor Start: 04-25-2024 End: 04-29-2024 take 2.25 g intravenously every six hours PEG [id number]-PURII-NAC L-NASULF (2 sources) Osmotic Laxative Start: 06-15-2017 GOLYTELY 236 GM SOLR as directed PEG [id number] L-NASULF [id number] Ochoa Tyson MD Start: 06-15-2017 GOLYTELY 236 G M SOLR as directed PEG [id number]-NASULF [id number] Ochoa Tyson MD 100 ml potassium chloride 0. 2 meq/ml injection (10 sources) Start: 05-02-2024 End: 05-03-2024 take 20 mEq intravenously every two hours Start: 04-25-2024 End: 04-27-2024 take 20 mEq intravenously every two hours Start: 04-24-2024 End: 04-24-2024 take 20 mEq intravenously every two hours Start: 04-23-2024 End: 04-23-2024 Start: 04-19-2024 End: 04-22-2024 take 20 mEq intravenously every two hours raNITIdine 150 mg oral tablet (3 sources) Histamine-2 Receptor Antagonist Start: 07-22-2013 End: 05-27-2021 take 1 tablet by mouth twice daily as needed for gastroesophageal reflux disease Ranitidine Hcl 150 MG tablet Discontinued 150 mg PO TWICE DAILY NEEDED as needed for Heartburn Or Indigestion July 22, 2013 12:00am May 27, 2021 9:44am 1000 ml sodium chloride 9 mg/ml injection (3 sources) Start: 05-02-2024 End: 05-08-2024 Start: 04-26-2024 End: 04-30-2024 take 500 mL intravenously every eight hours Start: 04-22-2024 End: 05-07-2024 (4 sources) Start: 05-09-2024 End: 05-10-2024 Start: 04-23-2024 End: 05-09-2024 Start: 04-20-2024 End: 04-23-2024 Start: 04-19-2024 End: 04-20-2024 (4 sources) Start: 04-29-2024 End: 04-29-2024 Start: 04-22-2024 End: 04-22-2024 Start: 04-20-2024 End: 04-20-2024 Start: 04-20-2024 End: 04-20-2024 (1 source) Start: 04-29-2024 End: 05-09-2024 take 3 g intravenously every twelve hours (2 sources) Start: 04-23-2024 End: 05-08-2024 Start: 04-19-2024 End: 04-23-2024 (1 source) Start: 04-22-2024 End: 04-22-2024 Problems Active Problems Problem Classification Problem Date Documented Date Episodic/Chronic Aortic; peripheral; and visceral artery aneurysms (20 sources) Abdominal aortic aneurysm; Translations: [Abdominal aortic aneurysm, without rupture] Onset: 05-06-2013 Resolved: 05-10-2024 05-06-2013 Chronic Cancer of bladder (20 sources) H/O: malignant neoplasm; Translations: [Personal history of malignant neoplasm of bladder] Onset: 09-28-2020 09-28-2020 Episodic Cancer of colon (3 sources) Malignant tumor of colon; Translations: [Personal history of other malignant neoplasm of large intestine] 05-15-2017 Chronic Cancer of colon (20 sources) History of malignant neoplasm of colon; Translations: [Personal history of other malignant neoplasm of large intestine] Onset: 07-19-2013 Episodic Chronic kidney disease (20 sources) Chronic kidney disease stage 3A ; Translations: [Stage 3a chronic kidney disease (HCC)] Onset: 03-20-2024 03-20-2024 Chronic Chronic kidney disease (2 sources) Chronic kidney disease; Translations: [Stage 3a chronic kidney disease (HCC)] Onset: 03-20-2024 Chronic obstructive pulmonary disease and bronchiectasis (20 sources) Chronic obstructive lung disease; Translations: [Chronic bronchitis] Onset: 01-12-2009 Resolved: 09-28-2017 05-15-2017 Chronic Chronic ulcer of skin (13 sources) Pressure ulcer of sacral region, stage 1; Translations: [Pressure ulcer, lower back] Onset: 10-22-2024 10-22-2024 Chronic Coronary atherosclerosis and other heart disease (2 sources) Coronary arteriosclerosis; Translations: [Atherosclerotic heart disease of [place] coronary artery without angina pectoris] Onset: 04-30-2024 Resolved: 05-10-2024 05-10-2024 Chronic Deficiency and other anemia (2 sources) Iron deficiency anemia; Translations: [Iron deficiency anemia, unspecified] 04-18-2025 Episodic Disorders of lipid metabolism (20 sources) Hyperlipidemia; Translations: [Pure hypercholesterolemia] Onset: 06-21-2005 Resolved: 05-10-2024 05-15-2017 Chronic Esophageal disorders (20 sources) Gastroesophageal reflux disease without esophagitis; Translations: [Gastro-esophageal reflux disease without esophagitis] Onset: 08-08-2016 Chronic Essential hypertension (20 sources) Hypertensive disorder; Translations: [Essential hypertension] Onset: 12-01-2008 Resolved: 05-10-2024 05-15-2017 Chronic Comment on above: CONTROLLED ON MED Fluid and electrolyte disorders (1 source) Dehydration; Translations: [Dehydration] 04-24-2024 Episodic Genitourinary symptoms and ill-defined conditions (2 sources) Abnormal urinalysis; Translations: [Unspecified abnormal findings in urine] 01-09-2024 Episodic Hyperplasia of prostate (20 sources) Benign prostatic hyperplasia; Translations: [Benign prostatic hyperplasia without lower urinary tract symptoms] Onset: 12-01-2008 Resolved: 09-28-2017 05-06-2019 Chronic Inflammation; infection of eye (except that caused by tuberculosis or sexually transmitteddisease) (3 sources) Acute conjunctivitis of right eye; Translations: [Unspecified acute conjunctivitis, right eye] Onset: 04-27-2025 04-27-2025 Episodic Intestinal obstruction without hernia (20 sources) Unspecified intestinal obstruction, unspecified as to partial versus complete obstruction; Translations: [Obstruction of small intestine co-occurrent and due to peritoneal adhesions] Onset: 04-19-2024 Resolved: 05-10-2024 Episodic Malaise and fatigue (1 source) Asthenia; Translations: [Other malaise] 05-24-2024 Episodic Nutritional deficiencies (20 sources) Vitamin D deficiency; Translations: [Vitamin D deficiency, unspecified] Onset: 03-05-2014 03-05-2014 Chronic Occlusion or stenosis of precerebral arteries (12 sources) Bilateral stenosis of carotid arteries; Translations: [Occlusion and stenosis of bilateral carotid arteries] Onset: 07-22-2024 01-15-2025 Chronic Other aftercare (1 source) Drug therapy finding; Translations: [Other long-term (current) drug therapy] Episodic Other aftercare (1 source) Taking high risk medication; Translations: [Other long-term (current) drug therapy] 01-08-2024 Episodic Other circulatory disease (3 sources) Disorder of carotid artery; Translations: [Disorder of arteries and arterioles, unspecified] 05-03-2018 Chronic Other circulatory disease (1 source) Disorder of arteries and arterioles, unspecified; Translations: [Unspecified disorders of arteries and arterioles] 12-13-2023 Chronic Other circulatory disease (3 sources) History of peripheral vascular angioplasty; Translations: [Peripheral vascular angioplasty status] 05-06-2019 Episodic Other diseases of kidney and ureters (6 sources) Renal impairment; Translations: [Disorder of kidney and ureter, unspecified] 07-15-2023 Episodic Other diseases of kidney and ureters (2 sources) Unspecified hydronephrosis; Translations: [Hydronephrosis of right kidney] Onset: 01-12-2024 Episodic Other diseases of kidney and ureters (1 source) Disorder of kidney and ureter, unspecified; Translations: [Kidney insufficiency] Onset: 01-12-2024 Episodic Other nervous system disorders (20 sources) Polyneuropathy; Translations: [Polyneuropathy, unspecified] Onset: 04-21-2014 Chronic Other nervous system disorders (2 sources) Difficulty in walking, not elsewhere classified; Translations: [Difficulty in walking, not elsewhere classified] Onset: 04-19-2024 Chronic Other nervous system disorders (1 source) Difficulty walking; Translations: [Difficulty in walking, not elsewhere classified] 05-10-2024 Chronic Other nervous system disorders (10 sources) Polyneuropathy due to drug; Translations: [Drug-induced polyneuropathy] Onset: 04-21-2014 01-15-2025 Chronic Other nervous system disorders (1 source) Polyneuropathy, unspecified; Translations: [Peripheral polyneuropathy] Onset: 01-05-2022 Chronic Other screening for suspected conditions (not mental disorders or infectious disease) (10 sources) Patient encounter status; Translations: [Encounter for screening for malignant neoplasm of respiratory organs] Episodic Peripheral and visceral atherosclerosis (20 sources) Peripheral vascular disease; Translations: [Peripheral vascular disease, unspecified] Onset: 06-21-2005 Resolved: 05-10-2024 05-15-2017 Chronic Pleurisy; pneumothorax; pulmonary collapse (4 sources) Pleural effusion; Translations: [Pleural effusion, not elsewhere classified] Onset: 05-24-2024 05-24-2024 Episodic Residual codes; unclassified (2 sources) Obstructive sleep apnea syndrome; Translations: [Obstructive sleep apnea (adult) (pediatric)] Onset: 04-30-2024 Resolved: 05-10-2024 05-10-2024 Chronic Residual codes; unclassified (3 sources) Insomnia; Translations: [Other insomnia] 04-27-2025 Chronic Residual codes; unclassified (1 source) Other insomnia; Translations: [Other insomnia] Onset: 04-27-2025 Chronic Residual codes; unclassified (3 sources) History of colectomy; Translations: [Acquired absence of other specified parts of digestive tract] 05-06-2019 Episodic Residual codes; unclassified (3 sources) History of colonoscopy; Translations: [Other specified postprocedural states] 05-06-2019 Episodic Residual codes; unclassified (3 sources) Acquired absence of other parts of urinary tract; Translations: [History of total cystectomy] Onset: 03-20-2024 Episodic Substance-related disorders (20 sources) Tobacco user; Translations: [Nicotine dependence, unspecified, uncomplicated] Onset: 06-14-2005 Chronic Unclassified (1 source) Infrarenal abdominal aortic aneurysm, without rupture; Translations: [Infrarenal abdominal aortic aneurysm, without rupture] Onset: 12-24-2024 Past or Other Problems Problem Classification Problem Date Documented Date Episodic/Chronic Acute and unspecified renal failure (4 sources) Acute renal failure syndrome; Translations: [Acute kidney failure, unspecified] Onset: 04-30-2024 Resolved: 05-10-2024 05-24-2024 Episodic Cancer of bladder (20 sources) Malignant tumor of urinary bladder; Translations: [Malignant neoplasm of bladder, unspecified] Onset: 08-29-2016 Resolved: 09-28-2020 01-12-2024 Chronic Deficiency and other anemia (20 sources) Anemia; Translations: [Anemia, unspecified] Onset: 04-30-2024 Resolved: 05-10-2024 05-24-2024 Episodic Deficiency and other anemia (1 source) Iron deficiency anemia, unspecified; Translations: [Iron deficiency anemia, unspecified iron deficiency anemia type] Onset: 05-24-2024 Episodic Deficiency and other anemia (1 source) Anemia, unspecified; Translations: [Anemia, unspecified type] Onset: 05-24-2024 Episodic Genitourinary symptoms and ill-defined conditions (20 sources) Finding of urological device; Translations: [Encounter for attention to other artificial openings of urinary tract] Onset: 09-07-2017 Resolved: 09-28-2020 09-28-2020 Chronic Immunizations and screening for infectious disease (3 sources) Needs influenza immunization; Translations: [Encounter for immunization] Onset: 07-18-2024 Episodic Other diseases of bladder and urethra (20 sources) Mass of urinary bladder; Translations: [Other specified disorders of bladder] Onset: 08-04-2015 Resolved: 05-25-2016 05-25-2016 Chronic Other diseases of kidney and ureters (20 sources) Hydronephrosis; Translations: [Unspecified hydronephrosis] Onset: 03-19-2024 01-10-2024 Episodic Other male genital disorders (20 sources) Male erectile dysfunction, unspecified; Translations: [Impotence of organic origin] Onset: 09-25-2014 Resolved: 09-28-2017 09-28-2017 Chronic Other male genital disorders (20 sources) Disorder of prostate; Translations: [Disorder of prostate, unspecified] Onset: 08-04-2015 Resolved: 05-25-2016 05-25-2016 Episodic Residual codes; unclassified (20 sources) History of total cystectomy; Translations: [Acquired absence of other parts of urinary tract] Onset: 03-30-2021 03-20-2024 Episodic Residual codes; unclassified (1 source) Other specified postprocedural states; Translations: [Other specified postprocedural states] Onset: 08-23-2024 Episodic Rheumatoid arthritis and related disease (20 sources) Rheumatoid arthritis with rheumatoid factor, unspecified; Translations: [Rheumatoid arthritis] Onset: 03-04-2010 Resolved: 02-28-2017 05-15-2017 Chronic Screening and history of mental health and substance abuse codes (20 sources) Tobacco use and exposure - finding; Translations: [Personal history of nicotine dependence] Onset: 08-04-2015 Resolved: 09-28-2017 09-28-2017 Episodic Secondary malignancies (20 sources) Secondary malignant neoplasm of intra-abdominal lymph nodes; Translations: [Secondary and unspecified malignant neoplasm of intra-abdominal lymph nodes] Onset: 09-02-2013 Resolved: 09-28-2020 Chronic Spondylosis; intervertebral disc disorders; other back problems (20 sources) Neck pain; Translations: [Cervicalgia] Onset: 11-03-2008 Episodic Results Test Name Value Interpretation Reference Range Facility Carotid Duplex Ultrasoundon 06-25-2025 Carotid Duplex Ultrasound [facility] [address] [place] [address] Carotid Duplex Ultrasound 06/25/25 1004 MR#: [id number] Acct: [id number] Name: LELA GUERRIER Rep #: [id number] : 1950 75 From: Geo Clinton MD Attending Dr: MICHAEL Burkett Status: REG CLI Ordering Dr: Yi Lockhart Date: 06/25/25 Location: [facility] Sex: M C Admitted: Reason For Study Reason For Study: Lt ICA Stenosis Rt. Velocities/BP Lt. Velocities/BP Prox CCA 74.0/11.6 cm/sec. Prox CCA 67.4/10.7 cm/sec. Mid CCA 73.0/10.7 cm/sec. Mid CCA 65.7/11.6 cm/sec. Dist CCA 47.4/8.1 cm/sec. Dist CCA 74.0/9.7 cm/sec. Prox ICA 70.4/12.6 cm/sec. Prox ICA 330.7/83.6 cm/sec. Mid ICA 139.4/29.8 cm/sec. Mid ICA 377.8/99.3 cm/sec. Dist ICA 101.0/24.3 cm/sec. Dist ICA 86.4/17.0 cm/sec. Rt. ICA/CCA = 1.9. Lt. ICA/CCA = 5.6. Prox ECA 279.7/0.0 cm/sec. Prox ECA 145.5/0.0 cm/sec. Rt. Vert. 29.0/6.4 cm/sec. Lt. Vert. 56.9/0.0 cm/sec. Right Extracranial There is heterogeneous, irregular atherosclerotic plaque noted in the right common carotid artery. There is heterogeneous, irregular atherosclerotic plaque noted in the right internal carotid artery. There is heterogeneous, irregular atherosclerotic plaque noted in the right external carotid artery. Antegrade flow is noted in the right vertebral artery. Left Extracranial There is heterogeneous, irregular atherosclerotic plaque noted in the left common carotid artery. There is heterogeneous, irregular atherosclerotic plaque noted in the left internal carotid artery. There is heterogeneous, irregular atherosclerotic plaque noted in the left external carotid artery. Antegrade flow is noted in the left vertebral artery. Procedure Carotid Duplex 52875. This is a Carotid Duplex examination using B-mode, color flow and specral Doppler. Exam performed in department. VL/Carotid Duplex Ultrasound Interpretation Summary Moderate (50-69%) stenosis right extracranial internal carotid. Severe (>70%) stenosis left extracranial internal carotid. Patent and antegrade vertebrals bilaterally. Ordering Physician: Yi oLckhart Referring Physician: Arnie Chiang M.D. Performed By: Mariama Garsia RVT 06/25/25 1340 Date Geo Clinton MD CC: MICHAEL Burkett; Dr. Arnie Chiang MD Date Dictated: 06/25/25 1004 Date Transcribed: 06/25/25 1341 Supervisor Dry Cleaning: Signed Normal [facility] Duplex ultrasound of carotid artery reportOrdered By: Geo Clinton on 06-25-2025 Study report [facility] [address] [place] [address] Carotid Duplex Ultrasound 06/25/25 1004 MR#: [id number] Acct: [id number] Name: LELA GUERRIER Rep #:[id number] : 1950 75 From: Geo Earl Attending Dr: MICHAEL Burkett Stat us: REG CLI Ordering Dr: Yi Lockhart Date: Location: [facility] Sex: M C Admitted: Reason For Study Reason For Study: Lt ICA Stenosis Rt. Velocities/BP Lt. Velocities/BP Prox CCA 74.0/11.6 cm/sec. Prox CCA 67.4/10.7 cm/sec. Mid CCA 73.0/10.7 cm/sec. Mid CCA 65.7/11.6 cm/sec. Dist CCA 47.4/8.1 cm/sec. Dist CCA 74.0/9.7 cm/sec. Prox ICA 70.4/12.6 cm/sec. Prox ICA 330.7/83.6 cm/sec. Mid ICA 139.4/29.8 cm/sec. Mid ICA 377.8/99.3 cm/sec. Dist ICA 101.0/24.3 cm/sec. Dist ICA 86.4/17.0 cm/sec. Rt. ICA/CCA = 1.9. Lt. ICA/CCA = 5.6. Prox ECA 279.7/0.0 cm/sec. Prox ECA 145.5/0.0 cm/sec. Rt. Vert. 29.0/6.4 cm/sec. Lt. Vert. 56.9/0.0 cm/sec. Right Extracranial There is heterogeneous, irregular atherosclerotic plaque noted in the right common carotid artery. There is heterogeneous, irregular atherosclerotic plaque noted in the right internal carotid artery. There is heterogeneous, irregular atherosclerotic plaque noted in the right external carotid artery. Antegrade flow is noted in the right vertebral artery. Left Extracranial There is heterogeneous, irregular atherosclerotic plaque noted in the left common carotid artery. There is heterogeneous, irregular atherosclerotic plaque noted in the left internal carotid artery. There is heterogeneous, irregular atherosclerotic plaque noted in the left external carotid artery. Antegrade flow is noted in the left vertebral artery. Procedure Carotid Duplex [id number]. This is a Carotid Duplex examination using B-mode, color flow and specral Doppler. Exam performed in department. VL/Carotid Duplex Ultrasound Interpretation Summary Moderate (50-69%) stenosis right extracranial internal carotid. Severe (>70%) stenosis left extracranial internal carotid. Patent and antegrade vertebrals bilaterally. Ordering Physician: Yi Lockhart Referring Physician: Arnie Chiang M.D. Performed By: Mariama Garsia, Dez 06/25/25 1340 Date _ Geo Clinton MD CC: MICHAEL Burkett; Dr. Arnie Chiang MD ~ Date Dictated: 06/25/25 1004 Date Transcribed: 06/25/25 1341 Supervisor Dry Cleaning: Signed [facility] Work Phone: CNOVon 04-29-2025 CNOV Office Visit (INTMWS ) LELA GUERRIER ([id number]) 1950 M Date Time Provider Department 04/29/25 8:40 AM ROWENA SARABIA INTMWS During your visit today, we recorded the following information about you: Temperature Pulse Respiration Blood pressure 98.4 degrees 116/minute 14/minute 116/60 Weight Height 52.6 kg 1.702 m Rowena Sarabia, HYDRO STATION SUPERVISOR.MAINSTREAMING FACILITATOR 04/29/2025 9:03 AM Signed CC: Patient presents with: Follow Up: seen in urgent care on Monday for insomnia x 1 week- restless HPI Recording using [employer] software for draft documentation of the visit was discussed with the patient/authorized training representative; all questions welcomed and answered. Patient/authorized training representative agreed to proceed Lela Guerrier is a 75-year-old male with a history of neuropathy, RA, and anemia, presenting with acute onset of insomnia. Lela reports difficulty sleeping for the past week, beginning on Monday. He describes being unable to fall asleep on some nights and only getting about an hour of sleep on others. He feels restless and unable to get comfortable in bed, often getting up after just 5 minutes. He denies any new stressors or changes in his life that could be contributing to the insomnia. He also denies feeling anxious or experiencing pain that could be interfering with his sleep. He notes that the insomnia started the day after his last visit to the clinic. Last , Lela called the clinic and was given some advice by a nurse, which seemed to help temporarily, but the insomnia returned. On Monday, he went to urgent care and was prescribed hydroxyzine, which he has been taking three times a day as instructed. He reports that the medication has helped him sleep for about 5 hours last night, but he is still not getting his usual 7-8 hours of sleep. He denies napping during the day and continues to go to bed around 2100. He also reports worsening neuropathy and RA, with increased sensitivity to cold air on his hands and seems to be affecting his appetite. Lela is currently taking iron supplements for anemia and has been using antibiotic eye drops for an eye infection since Monday. He has an appointment with an eye doctor on the . Review of Systems See HPI PAST MEDICAL HISTORY Diagnosis Date AAA (abdominal aortic aneurysm) 05/06/2013 Bladder cancer (HCC) 08/29/2016 Bladder tumor BPH without urinary obstruction 08/04/2015 Cervicalgia 11/03/2008 CHRONIC AIRWAY OBSTRUCTION NEC 01/12/2009 Colon cancer (HCC) 07/19/2013 s/p laparoscopic with conversion to open low anterior resection of the colon with abscess and appendectomy and completed chemo 2013 Hydronephrosis 2023 HYPERTENSION NOS 12/01/2008 Hypertrophy of prostate without urinary obstruction and other lower urinary tract symptoms (LUTS) 12/01/2008 Malignant neoplasm of overlapping sites of bladder (HCC) Pain in limb 06/14/2005 PERIPH VASCULAR DIS NOS 06/21/2005 s/p bilateral common iliac artery [place] stenting. s/p angioplasty of instent PAD stent 2013 PURE HYPERCHOLESTEROLEM 06/21/2005 Rheumatoid arthritis(714.0) 03/04/2010 hands Small bowel obstruction due to adhesions (HCC) 04/18/2024 Tobacco use disorder 06/14/2005 PAST SURGICAL HISTORY Procedure Laterality Date ANGIOPLASTY FEMORAL/POP Bilateral 07/03/2019 multiple stents (4) ANGIOPLASTY-ILIAC Bilateral 06/21/2021 R exteranl iliac angioplasty/stent. L common iliac, external iliac angioplasty COLECTOMY PRTL W/COLOPROCTOSTOMY 07/25/2013 COLONOSCOPY 07/04/2017 recheck in 3 years, Dr. Tyson COLONOSCOPY FLX DX W/COLLJ SPEC WHEN PFRMD 07/12/2013 Colonoscopy COLONOSCOPY FLX DX W/COLLJ SPEC WHEN PFRMD 07/11/2014 repeat in 3 years COLONOSCOPY STOMA W/BIOPSY SINGLE/MULTIPLE 12/29/2023 ESOPHAGOGASTRODUODENOSCOPY TRANSORAL DIAGNOSTIC 07/12/2013 EGD INSJ TUNNELED CTR VAD W/SUBQ PORT AGE 5 YR/> 08/28/2013 RIGHT LAP CYSTECTOMY COMPLETE WITH CONDUIT 09/08/2016 LAP ENTEROTOMY, SM BOWEL; EXPLORE, BX 04/30/2024 Adhesiolysis. TPN. [facility]. LAPAROSCOPIC APPENDECTOMY 07/25/2013 LAPAROSCOPIC RADICAL PROSTATECTOMY 08/29/2016 Cysto-prostatectomy, Ileal conduit, pelvic LN dissection PROCTOSGMDSC RGD DX W/WO COLLJ SPEC BR/WA SPX 07/19/2013 RADICAL PROSTATECTOMY 2016 REVASCULARIZATION ILIAC ARTERY ANGIOP 1ST VSL 09/12/2011 RMVL [place] CTR VAD W/SUBQ PORT/SKIDWAY WORKER CTR/PRPH INSJ 09/03/2014 Removal right IJ port TRANSLUMINAL ANGIOPLASTY - ILIAC 01/15/2004 bilateral stents TRANSLUMINAL ANGIOPLASTY - ILIAC 04/14/2014 bilateral. ALLERGIES Bactrim [Sulfamethoxazole-Trimethopr im] MEDICATIONS ofloxacin (OCUFLOX) 0.3 % ophthalmic solution Use 1 drop in the right eye four times daily for 7 days. acetaminophen-codeine (TYLENOL-COD #4) 300-60 mg per tablet Take 1 tablet by mouth every 4 hours as needed (30 day supply w/ 2 refills.) for up to 90 days. predniSONE (D (more content not included)... Normal [facility] CNOVon 04-27-2025 CNOV Office Visit (UCWSTR ) LELA GUERRIER ([id number]) 1950 M Date Time Provider Department 04/27/25 11:15 AM [facility] During your visit today, we recorded the following information about you: Temperature Pulse Respiration Blood pressure 98.3 degrees 112/minute 18/minute 120/70 Weight 53.5 kg Chun Kirk PA-C 04/27/2025 2:03 PM Signed This note was created using [employer]. Subjective Lela Guerrier is a 75 year old male. Patient is a 75-year-old male who complains of worsening insomnia that he has been experiencing for the past 1 week. Patient states that he is only able to obtain approximately 1 hour of sleep per night. Patient reports increased agitation and restlessness due to lack of sleep. Patient does have a history of bladder cancer, prostate cancer as well as rheumatoid arthritis and is on multiple medications for same to include gabapentin. Patient states he has not previously developed significant sleep issues. Patient denies fever, chills, congestion, cough or other illness symptoms. Patient also describes increased redness to the lateral aspect of his right eye that he has noted developing over the past 2 days. Patient reports mild swelling and redness to the lateral aspect of his eyelids. Patient has noted no bleeding, serous or purulent fluid and states that his vision is intact and unchanged. Patient denies pain, injury or foreign body to his right eye. Patient does not wear contact lenses. Review of Systems Constitutional: Positive for fatigue. Insomnia Eyes: Positive for discharge, redness and itching. Negative for photophobia, pain and visual disturbance. All other systems reviewed and are negative. Objective BP 120/70 Pulse 112 Temp 36.8 ?C (98.3 ?F) Resp 18 Wt 53.5 kg (117 lb 15.1 oz) SpO2 98% BMI 18.08 kg/m? Physical Exam Vitals and nursing note reviewed. Constitutional: Appearance: Normal appearance. He is normal weight. HENT: Head: Normocephalic and atraumatic. Right Ear: Tympanic membrane, ear canal and external ear normal. Left Ear: Tympanic membrane, ear canal and external ear normal. Nose: Nose normal. Mouth/Throat: Mouth: Mucous membranes are moist. Pharynx: Oropharynx is clear. Eyes: General: Right eye: No discharge. Left eye: No discharge. Extraocular Movements: Extraocular movements intact. Pupils: Pupils are equal, round, and reactive to light. Cardiovascular: Rate and Rhythm: Normal rate and regular rhythm. Pulses: Normal pulses. Heart sounds: Normal heart sounds. Pulmonary: Effort: Pulmonary effort is normal. Breath sounds: Normal breath sounds. Musculoskeletal: Cervical back: Normal range of motion and neck supple. Skin: General: Skin is warm and dry. Capillary Refill: Capillary refill takes less than 2 seconds. Neurological: General: No focal deficit present. Mental Status: He is alert and oriented to person, place, and time. Psychiatric: Mood and Affect: Mood normal. Behavior: Behavior normal. Thought Content: Thought content normal. Judgment: Judgment normal. Assessment and Plan Physical exam findings as noted above. Patient was provided with prescriptions for hydroxyzine 25 mg (insomnia) and ofloxacin 0.3% ophthalmic solution (acute conjunctivitis). Patient was strongly advised to schedule an appointment to see his primary care physician if he experiences no improvement in sleep with the hydroxyzine. CLINICAL IMPRESSION: Insomnia--New Onset; Acute Conjunctivitis Right Eye ASSESSMENT/PLAN: 1. Other insomnia - ICD9: 780.52, ICD10: G47.09 (primary diagnosis) - HYDROXYZINE HCL 25 MG TABLET 2. Acute conjunctivitis of right eye, unspecified acute conjunctivitis type - ICD9: 372.00, ICD10: H10.31 - OFLOXACIN 0.3 % EYE DROPS MDM Risk of Complications, Morbidity, and/or Mortality Presenting problems: low Diagnostic procedures: low Management options: olga Kirk PA-C Allergies As of Date: 04/27/2025 Noted Allergy Reaction BACTRIM (SULFAMETHOXAZOLE-TRIMETH* 14 - Other: See Comments Comments: pt. states caused severe bladder spasms Date Reviewed: 04/27/2025 Reviewed by: Mariola Florez MA - Fully Assessed Reason for Visit: Sleep Problem [100] Cmt: Unable to get comfortable and fall asleep x1 week, hasn't slept more than an hour each night Primary Visit Diagnosis:Other insomnia [G47.09] Other Visit Diagnosis:Acute conjunctivitis of right eye, unspecified acute conjunctivitis type [H10.31] Order(s):ofloxacin (OCUFLOX) 0.3 % ophthalmic solutionUse 1 drop in the right eye four times daily for 7 days.Disp: 5 mLRfl: 0 hydrOXYzine HCl (ATARAX) 25 mg tabletTake 1 tablet by mouth three times a day as needed (for itching) for up to 10 days.Disp: 30 tabletRfl: 0 Prescriptions as of 04/27/2025 - ofloxacin (OCUFLOX) 0.3 % ophthalmic solution Use 1 drop (more content not included)... Normal [facility] CBC panel Auto (Bld)on 04-18 Erythrocyte distribution width (RBC) [Ratio] 15.6 % High 11.5-15.0 [facility] Comment on above: Order Comment: Speci men Type: BLOOD SPECIMENOrdering Facility: [facility] Address: [address] [place] [address] Performed By: #### 5 [id number] ####[facility] LABCLIA [id number] [place] [address] [place] Hematocrit (Bld) [Volume fraction] 36.3 % Low 39.0-51.0 [facility] Comment on above: Order Comment: Speci men Type: BLOOD SPECIMENOrdering Facility: [facility] Address: [address] [place] [address] Performed By: #### 5 [id number] ####[facility] LABIA [id number] [place] [address] [place] Hemoglobin (Bld) [Mass/Vol] 11.3 g/dL Low 13.0-17.0 [facility] Comment on above: Order Comment: Speci men Type: BLOOD SPECIMENOrdering Facility: [facility] Address: [address] [place] [address] Performed By: #### 5 8410-2 ####[facility] [id number] [place] [address] [place] MCH (RBC) [Entitic mass] 28.5 pg Normal 26.0-34.0 [facility] Comment on above: Order Comment: Speci men Type: BLOOD SPECIMENOrdering Facility: [facility] Address: [address] [place] [address] Performed By: #### 5 8410-2 ####[facility] [id number] [place] [address] [place] MCHC (RBC) [Mass/Vol] 31.1 g/dL Normal 30.5-36.0 [facility] Comment on above: Order Comment: Speci men Type: BLOOD SPECIMENOrdering Facility: [facility] Address: [address] [place] [address] Performed By: #### 5 8410-2 ####[facility] [id number] [address] [place] MCV (RBC) [Entitic vol] 91.4 fL Normal 80.0-100.0 [facility] Comment on above: Order Comment: Speci men Type: BLOOD SPECIMENOrdering Facility: [facility] Address: [address] [place] [address] Performed By: #### 5 8410-2 ####[facility] LABCLIA [id number] [place] [address] [place] Nucleated RBC (Bld) [#/Vol] 10*3/uL Normal <0.01 [facility] Comment on above: Order Comment: Speci men Type: BLOOD SPECIMENOrdering Facility: [facility] Address: [address] [place] [address] Performed By: #### 5 8410-2 ####[facility] LABCLIA [id number] [place] [address] [place] Platelet mean volume (Bld) [Entitic vol] 9.6 fL Normal 9.0-12.7 [facility] Comment on above: Order Comment: Speci men Type: BLOOD SPECIMENOrdering Facility: [facility] Address: [address] [place] [address] Performed By: #### 5 8410-2 ####[facility] LABCLIA [id number] [place] [address] [place] Platelets (Bld) [#/Vol] 481 10*3/uL High 150-400 [facility] Comment on above: Order Comment: Speci men Type: BLOOD SPECIMENOrdering Facility: [facility] Address: [address] [place] [address] Performed By: #### 5 8410-2 ####[facility] LABCLIA [id number] [place] [id number] [place] RBC (Bld) [#/Vol] 3.97 10*6/uL Low 4.20-6.00 [facility] Comment on above: Order Comment: Speci men Type: BLOOD SPECIMENOrdering Facility: [facility] Address: [address] [place] [address] Performed By: #### 5 8410-2 ####[facility] LABCLIA [id number] [place] [id number] [place] WBC (Bld) [#/Vol] 10.03 10*3/uL Normal 3.70-11.00 [facility] Comment on above: Order Comment: Speci men Type: BLOOD SPECIMENOrdering Facility: [facility] Address: [address] [place] [address] Performed By: #### 5 8410-2 ####[facility] [id number] [place] [id number] [place] CNOVon 04-18-2025 CNOV Office Visit (INTMWS ) LELA GUERRIER ([id number]) 1950 M Date Time Provider Department 04/18/25 8:00 AM ROWENA SARABIA INTMWS During your visit today, we recorded the following information about you: Pulse Respiration Blood pressure Weight 66/minute 14/minute 102/62 54.6 kg Rowena Sarabia, HYDRO STATION SUPERVISOR.MAINSTREAMING FACILITATOR 04/18/2025 8:25 AM Signed We discussed your medications: - I have sent refills for Plavix, Tylenol with Codeine, and Prednisone to your preferred pharmacy, [facility]. - Plavix: I have provided a 3-month supply to cover you until you can see a vascular specialist. This medication should be managed by a vascular doctor moving forward. - Tylenol with Codeine: Continue taking 5-6 pills daily as needed for chronic neck pain. - Prednisone: Continue as prescribed. We discussed your vascular care: - You need to establish care with a vascular specialist for ongoing management of your vascular health and Plavix prescription. Since you were previously seeing Dr. Rajput, you do not need a referral. - Please call [facility] to schedule an appointment with the vascular doctor who replaced Dr. Tyson. You can let them know you were previously under Dr. Tyson?s care and need to schedule a follow-up or refill. - The vascular specialist may want to see you before refilling your prescription, so please schedule this as soon as possible. We discussed your blood counts and iron supplementation: - You were instructed to restart your iron supplement daily two months ago, and it is now time to recheck your blood counts. - Please complete your bloodwork today to assess your iron levels. This does not require fasting. - Based on the results, we will decide whether you should continue the iron supplement for the remaining month or stop it. We discussed your next appointment: - Your next appointment is scheduled with Dr. Damon on July 24. There is no need to schedule a separate 3-month follow-up, as this appointment will cover your ongoing care. - If you run out of medication before this appointment, please contact us via NXT-ID or leave a message, and we will assist you. Please let us know if you have any questions or concerns. Rowena Sarabia, HYDRO STATION SUPERVISOR.[facility] 04/18/2025 8:37 AM Signed CC: Patient presents with: Follow Up: 3 months controlled medication HPI Recording using [employer] software for draft documentation of the visit was discussed with the patient/authorized training representative; all questions welcomed and answered. Patient/authorized training representative agreed to proceed Lela Guerrier is a 75-year-old male with a history of chronic pain, presenting for a follow-up on pain medication and Plavix refill. Lela is currently taking Tylenol with codeine, approximately 5-6 pills per day, for chronic pain, including neck pain. Medication is effective at controlling pain and does not interfere with sleep, ADL's or quality of life. Denies side effects. He requests a refill for this medication. He also requests a refill for Plavix, which he has been taking for PVD and stents by Dr. Tyson who has retired. He has not seen vascular in a couple years. Additionally, Lela is taking iron supplements and prednisone. He was advised to restart his iron supplement daily two months ago and to have his blood counts rechecked after two months. He has approximately five iron pills left and inquires if he should continue taking them. Review of Systems See HPI PAST MEDICAL HISTORY Diagnosis Date AAA (abdominal aortic aneurysm) 05/06/2013 Bladder cancer (HCC) 08/29/2016 Bladder tumor BPH without urinary obstruction 08/04/2015 Cervicalgia 11/03/2008 CHRONIC AIRWAY OBSTRUCTION NEC 01/12/2009 Colon cancer (HCC) 07/19/2013 s/p laparoscopic with conversion to open low anterior resection of the colon with abscess and appendectomy and completed chemo 2013 Hydronephrosis 2023 HYPERTENSION NOS 12/01/2008 Hypertrophy of prostate without urinary obstruction and other lower urinary tract symptoms (LUTS) 12/01/2008 Malignant neoplasm of overlapping sites of bladder (HCC) Pain in limb 06/14/2005 PERIPH VASCULAR DIS NOS 06/21/2005 s/p bilateral common iliac artery [place] stenting. s/p angioplasty of instent PAD stent 2013 PURE HYPERCHOLESTEROLEM 06/21/2005 Rheumatoid arthritis(714.0) 03/04/2010 hands Small bowel obstruction due to adhesions (HCC) 04/18/2024 Tobacco use disorder 06/14/2005 PAST SURGICAL HISTORY Procedure Laterality Date ANGIOPLASTY FEMORAL/POP Bilateral 07/03/2019 multiple stents (4) ANGIOPLASTY-ILIAC Bilateral 06/21/2021 R exteranl iliac angioplasty/stent. L common iliac, external iliac angioplasty COLECTOMY PRTL W/COLOPROCTOSTOMY 07/25/2013 COLONOSCOPY 07/04/2017 recheck in 3 years, Dr. Tyson COLONOSCOPY FLX DX W/COLLJ SPEC WHEN PFRMD 07/12/2013 Colonoscopy COLONOSCOPY FLX (more content not included)... Normal [facility] Ferritin SerPl-mCncon 2024 Ferritin [Mass/Vol] 144.0 ng/mL Normal 30.3-565.7 [facility] Comment on above: Order Comment: Speci men Type: BLOOD SPECIMENOrdering Facility: [facility] Address: [address] [place] [address] Performed By: #### 2 276-4, 99016-0 ####[facility] LABCLIA [id number] [place] [address] [place] Iron and Iron binding capaci ty panelon 04-18-2025 Iron [Mass/Vol] 40 ug/dL Low 41-186 [facility] Comment on above: Order Comment: Speci men Type: BLOOD SPECIMENOrdering Facility: [facility] Address: [address] [place] [address] Performed By: #### 2 276-4, 95669-2 ####[facility] [id number] [place] [address] [place] Iron binding capacity [Mass/Vol] 204 ug/dL Low 232-386 [facility] Comment on above: Order Comment: Speci men Type: BLOOD SPECIMENOrdering Facility: [facility] Address: [address] [place] [address] Performed By: #### 2 276-4, 02635-5 ####[facility] [id number] [place] [address] [place] Iron/TIBC [Molar ratio] 19.6 % Normal 15.0-57.0 [facility] Comment on above: Order Comment: Speci men Type: BLOOD SPECIMENOrdering Facility: [facility] Address: [address] [place] [address] Performed By: #### 2 276-4, 22690-1 ####[facility] [id number] [place] [address] [place] CBC panel Auto (Bld)on 01-15 Erythrocyte distribution width (RBC) [Ratio] 14.7 % Normal 11.5-15.0 [facility] Comment on above: Order Comment: Speci men Type: BLOOD SPECIMENOrdering Facility: [facility] Address: [address] [place] [address] Performed By: #### 5 8410-2 ####[facility] [id number] [place] [id number] [place] Hematocrit (Bld) [Volume fraction] 37.1 % Low 39.0-51.0 [facility] Comment on above: Order Comment: Speci men Type: BLOOD SPECIMENOrdering Facility: [facility] Address: [address] [place] [address] Performed By: #### 5 8410-2 ####[facility] [id number] [place] [address] [place] Hemoglobin (Bld) [Mass/Vol] 11.3 g/dL Low 13.0-17.0 [facility] Comment on above: Order Comment: Speci men Type: BLOOD SPECIMENOrdering Facility: [facility] Address: [address] [place] [address] Performed By: #### 5 8410-2 ####[facility] [id number] [place] [address] [place] MCH (RBC) [Entitic mass] 27.8 pg Normal 26.0-34.0 [facility] Comment on above: Order Comment: Speci men Type: BLOOD SPECIMENOrdering Facility: [facility] Address: [address] [place] [address] Performed By: #### 5 8410-2 ####[facility] [id number] [address] [place] MCHC (RBC) [Mass/Vol] 30.5 g/dL Normal 30.5-36.0 [facility] Comment on above: Order Comment: Speci men Type: BLOOD SPECIMENOrdering Facility: [facility] Address: [address] [place] [address] Performed By: #### 5 8410-2 ####[facility] [id number] [place] [address] [place] MCV (RBC) [Entitic vol] 91.2 fL Normal 80.0-100.0 [facility] Comment on above: Order Comment: Speci men Type: BLOOD SPECIMENOrdering Facility: [facility] Address: [address] [place] [address] Performed By: #### 5 8410-2 ####[facility] [id number] [place] [address] [place] Nucleated RBC (Bld) [#/Vol] 10*3/uL Normal <0.01 [facility] Comment on above: Order Comment: Speci men Type: BLOOD SPECIMENOrdering Facility: [facility] Address: [address] [place] [address] Performed By: #### 5 8410-2 ####[facility] LABCLIA [id number] [facility] [place] [address] [place] Platelet mean volume (Bld) [Entitic vol] 9.5 fL Normal 9.0-12.7 [facility] Comment on above: Order Comment: Speci men Type: BLOOD SPECIMENOrdering Facility: [facility] Address: [address] [place] [address] Performed By: #### 5 8410-2 ####[facility] LABCL[facility] [id number] [place] [address] [place] Platelets (Bld) [#/Vol] 477 10*3/uL High 150-400 [facility] Comment on above: Order Comment: Speci men Type: BLOOD SPECIMENOrdering Facility: [facility] Address: [address] [place] [address] Performed By: #### 5 8410-2 ####[facility] LABCL[facility] [id number] [place] [address] [place] RBC (Bld) [#/Vol] 4.07 10*6/uL Low 4.20-6.00 [facility] Comment on above: Order Comment: Speci men Type: BLOOD SPECIMENOrdering Facility: [facility] Address: [address] [place] [address] Performed By: #### 5 8410-2 ####[facility] LABCL[facility] [id number] [facility] [place] [address] [place] WBC (Bld) [#/Vol] 8.09 10*3/uL Normal 3.70-11.00 [facility] Comment on above: Order Comment: Speci men Type: BLOOD SPECIMENOrdering Facility: [facility] Address: [address] [place] [address] Performed By: #### 5 8410-2 ####[facility] LABCLIA [id number] [address] TRACY [address] OF [facility] CNOVon 01-15-2025 CNOV Office Visit (INTMWS ) LELA GUERRIER ([id number]) 1950 M Date Time Provider Department 01/15/25 8:20 AM ROWENA SARABIA INTMWS During your visit today, we recorded the following information about you: Pulse Respiration Blood pressure Weight 78/minute 14/minute 118/78 55.5 kg Rowena Sarabia, HYDRO STATION SUPERVISOR.MAINSTREAMING FACILITATOR 01/15/2025 8:44 AM Signed We discussed your routine 3-month follow-up and reviewed your current health concerns and medications: - Iron levels and anemia: - Your iron levels are still slightly low but have improved since your last visit. - I ordered blood work today to recheck your iron levels now that you are off the iron pill. We will contact you with the results. If your levels have dropped, you may need to resume the iron supplement. - Oxygen levels and respiratory health: - Your oxygen level today was 91%, and you reported occasional shortness of breath but no significant coughing or nighttime symptoms. - You are using your albuterol inhaler only as needed, about twice a week. You do not need a refill at this time. I noted mild wheezing during the exam but no significant concerns. - Ibuprofen use: - You take ibuprofen occasionally for pain, averaging twice daily depending on the weather. Be cautious with frequent use, as it can affect your kidneys. Use it only when necessary. - Smoking: - You continue to smoke about half a pack per day. Reducing or quitting smoking would benefit your overall health, especially your respiratory and vascular health. Follow-up plan: - We will contact you with the results of your blood work. - Schedule your next routine follow-up in 3 months. At that visit, we may collect a urine sample. - Let us know if you experience any new or worsening symptoms or need assistance with prescriptions or supplies. Rowena Sarabia, SHERRIE.[facility] 01/15/2025 9:17 AM Signed CC: Patient presents with: Follow Up HPI Lela Guerrier is a 74 year old male who presents today for three month routine follow-up. The patient consented to the use of [employer] software for draft documentation of the visit consistent with [facility]?s Notice of Privacy Practices. Lela is a 74-year-old male with a history of anemia, chronic neck pain, neuropathy, and smoking, presenting for a routine 3-month follow-up and medication refills. Anemia: Lela reports no dizziness, lightheadedness, melena, or hematochezia. Bowel movements are normal, though he occasionally feels they are not as regular as he would like. He denies constipation or abdominal pain. He had a colonoscopy in December of last year, which was unremarkable except for the removal of polyps. Vascular disease: He is currently under the care of a vascular specialist and is taking Plavix. He recently had stents and his aorta checked, as well as a carotid ultrasound, which showed slight worsening on one side compared to the previous year. He is scheduled for a follow-up in 6 months. He is also on a cholesterol-lowering medication. Chronic pain: Lela experiences chronic neck pain, for which he takes Tylenol with codeine 4-5 times daily, depending on the weather. He reports that this medication effectively manages his pain without causing side effects such as constipation, fatigue, or lightheadedness. 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 He notes that the neuropathy has slightly improved but still requires him to visually confirm his foot movements when walking. He can tell if he is late or misses a dose of gabapentin. He also takes ibuprofen as needed, averaging a couple of times a day, particularly when the weather affects his symptoms. HTN: He monitors his blood pressure at home, usually once a day or every couple of days, with readings typically in the 120-140/66 range. He denies any side effects from his antihypertensive medication, such as dizziness, lightheadedness, or peripheral edema. He denies chest pain, decreased exercise tolerance or palpitations. Chronic bronchitis: Lela reports dyspnea on exertion, which he attributes to limited outdoor activity due to weather conditions. He smokes approximately half a pack of cigarettes per day and denies frequent coughing, nocturnal cough, or dyspnea. He uses an albuterol inhaler as needed, which has decreased from 2-3 times daily to a couple of times a week. He has an ileal conduit and reports no issues with it. He recently had a smooth transition of his ostomy supplies after an insurance change. Review of Systems See HPI PAST MEDICAL HISTORY Diagnosis Date AAA (abdominal aortic aneurysm) ([facility]) 05/06/2013 Bladder cancer ([facility]) 08/29/2016 Bladder tumor BPH without urinary obstruction 08/04/2015 Cervicalgia 11/03/2008 CHRONIC AIRWAY OBSTRUCTION NEC 01/12/2009 Colon cancer ([facility]) 06/24 (more content not included)... Normal [facility] 01-15-2025 [facility] Telephone (INTMWS) LELA GUERRIER ([id number]) 1950 M Date Time Provider Department 01/15/25 ARNIE CHIANG INTWS During your visit today, we recorded the following information about you: Lary Milan RN 01/15/2025 10:31 AM Signed Pharmacist Dalia calling from [facility] regarding pt's prescription for gabapentin 300 mg-take 2 capsules three times a day. Pharmacist asking if provider would be agreeable to changing the script to use 600 mg dosage instead, as they do not have enough 300 mg tabs to fill script at this time. Script has been pended. If agreeable, please send new script, or call pharmacy to discuss. [phone]. LYNDSEY Anthony Naz M, HYDRO STATION SUPERVISOR.[facility] 01/15/2025 10:39 AM Signed Please make patient aware of the change Rowena Sarabia APRN.Mala Bedolla RN 01/15/2025 10:45 AM Signed Pt called and is notified of providers message and instructions. Pt voices understanding. LYNDSEY Malik Beth, LPN 01/17/2025 2:47 PM Signed Dalia from [facility] pharmacy calling to ask if [employer]CHE[employer] was alright with the change on the Gabapentin rx. Aware Rowena Sarabia [employer]CHESTRA TEACHER was alright with that, she had office notify the patient about the change. she will go ahead and dispense the rx. Pharmacy was never notified. Allergies As of Date: 01/15/2025 Noted Allergy Reaction BACTRIM (SULFAMETHOXAZOLE-TRIMETH* 14 - Other: See Comments Comments: pt. 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 - amLODIPine (NORVASC) 10 mg tablet Take 1 tablet by mouth once daily. - atorvastatin (LIPITOR) 20 mg tablet Take 1 tablet by mouth once daily. - lisinopril (ZESTRIL) 20 mg tablet Take 1 tablet by mouth once daily. - ibuprofen (MOTRIN) 800 mg tablet Take 1 tablet by mouth three times a day as needed for pain. - predniSONE (DELTASONE) 10 mg tablet Take 1 tablet by mouth once daily as needed (joint swelling). - gabapentin (NEURONTIN) 600 mg tablet Take 1 tablet by mouth three times a day. - ferrous sulfate 325 mg (65 mg iron) tablet Take 1 tablet by mouth once daily. - albuterol HFA (VENTOLIN HFA) 90 mcg/actuation inhaler Inhale 2 Puffs as instructed every 4 hours as needed for wheezing/shortness of breath. - Menthol-Zinc Oxide (CALMOSEPTINE) 0.44-20.6 % Apply to affected area once daily as needed. - clopidogrel (PLAVIX) 75 mg tablet Take 1 tablet by mouth once daily. Post stents. Problem List As Of Date 01/15/2025 Noted Resolved Tobacco use disorder [F17.200] 06/14/2005 Pure hypercholesterolemia [E78.00] 06/21/2005 PERIPH VASCULAR DIS NOS [I73.9] 06/21/2005 Cervicalgia [M54.2] 11/03/2008 BPH with obstruction/lower urinary tract sympto*12/01/2008 09/28/2017 Essential hypertension [I10] 12/01/2008 Chronic bronchitis (HCC) [J42] 01/12/2009 Rheumatoid arthritis ([facility]) [M06.9] 03/04/2010 02/28/2017 AAA (abdominal aortic aneurysm) [I71.40] 05/06/2013 History of colon cancer [Z85.038] 07/19/2013 Secondary and unspecified malignant neoplasm of*09/02/2013 09/28/2020 Vitamin D deficiency [E55.9] 03/05/2014 Polyneuropathy following chemotherapy (HCC) [G6*04/21/2014 Erectile dysfunction [N52.9] 09/25/2014 09/28/2017 BPH without urinary obstruction [N40.0] 08/04/2015 09/28/2017 Bladder mass [N32.89] 08/04/2015 05/25/2016 Abnormal prostate on physical examination [N42.*08/04/2015 05/25/2016 Smoking history [Z87.891] 08/04/2015 09/28/2017 Rheumatoid arthritis involving both hands ([facility])*03/04/2010 05/25/2016 History of bladder cancer [Z85.51] Rheumatoid arthritis with positive rheumatoid f*08/08/2016 02/28/2017 Centrilobular emphysema (HCC) [J43.2] 08/08/2016 09/28/2017 Gastroesophageal reflux disease [K21.9] 08/08/2016 PAD (peripheral artery disease) ([facility]) [I73.9] 08/08/2016 09/28/2017 Bladder cancer (HCC) [C67.9] 08/29/2016 09/28/2020 Attention to artificial opening of urinary trac*09/07/2017 09/28/2020 History of total cystectomy [Z90.6] 03/30/2021 Hydronephrosis of right kidney [N13.30] 03/19/2024 Stage 3a chronic kidney disease (HCC) [N18.31] 03/20/2024 S/P laparotomy with lysis of adhesions [Z98.890]05/24/2024 Small bowel obstruction due to adhesions (HCC) *05/24/2024 Anemia [D64.9] 05/24/2024 Decubitus ulcer of sacral region, stage 1 [L89.*10/22/2024 S/P ileal conduit (HCC) [Z93.6] 01/15/2025 Bilateral carotid artery stenosis [I65.23] 03/ (more content not included)... Normal [facility] Ferritin SerPl-mCncon 2024 Ferritin [Mass/Vol] 180.0 ng/mL Normal 30.3-565.7 [facility] Comment on above: Order Comment: Speci men Type: BLOOD SPECIMENOrdering Facility: [facility] Address: [address] [place] [address] Performed By: #### 5 0190-8, 2276-01 ####[facility] [id number] [place] [address] [place] Iron and Iron binding capaci ty panelon 01-15-2025 Iron [Mass/Vol] 34 ug/dL Low 41-186 [facility] Comment on above: Order Comment: Speci men Type: BLOOD SPECIMENOrdering Facility: [facility] Address: [address] [place] [address] Performed By: #### 5 0190-8, 2275- ####[facility] [id number] [place] [address] [place] Iron binding capacity [Mass/Vol] 194 ug/dL Low 232-386 [facility] Comment on above: Order Comment: Speci men Type: BLOOD SPECIMENOrdering Facility: [facility] Address: [address] [place], [place] [address] Performed By: #### 5 0190-8, 2276-4 ####[facility]ORYCL[facility] [id number] [place] [id number] [place] [facility] Iron/TIBC [Molar ratio] 17.5 % Low 20.0-55.0 [facility] Comment on above: Order Comment: Speci men Type: BLOOD SPECIMENOrdering Facility: [facility] Address: [address] [place], [place] [address] Performed By: #### 5 0190-8, 2276-4 ####[facility] LABORATORYCLIA [id number] [place] [id number] [place] Abd Aortic/IVC Duplex scanon 12-13-2024 Abd Aortic/IVC Duplex scan [facility] [address] [facility] [place] [id number] Abd Aortic/IVC Duplex scan 12/13/24 0914 MR#: [id number] Acct: [id number] Name: LELA GUERRIER Rep #: [id number] : 1950 74 From: Geo Clinton MD Attending Dr: MICHAEL Burkett Status: REG CLI Ordering Dr: Yi Lockhart Date: 12/13/24 Location: [facility] Sex: M C Admitted: Reason For Study Reason For Study: HX AAA Aorta Measurements Aorta Doppler Measurements Proximal aorta measures3.23 x 2.68cm. in cross-sectional Peak systolic flow velocities within the proximal aorta axis. measure 121.6 cm/sec. Proximal aorta measures2.58cm. in longitudinal axis. Peak systolic flow velocities within the mid aorta measure Mural thrombus noted at prox / mid AO 63.6 cm/sec. True Lumen measures 1.76cm x 1.41cm x 1.49cm. Peak systolic flow velocities within the distal aorta Mid aorta measures2.98 x 3.15cm. in cross-sectional axis. measure 39.5 cm/sec. Mid aorta measures2.95cm. in longitudinal axis. Distal aorta measures3.49 x 3.77cm. in cross-sectional axis. Distal aorta measures3.56cm. in longitudinal axis. Left Iliac Artery Left iliac artery measures 0.66 x 0.60 cm. in the cross-sectional axis. Left iliac artery measures 0.66 cm. in the longitudinal axis. Peak systolic velocity in the left iliac artery measures 171.6 cm/sec. Right Iliac Artery Right iliac artery measures 0.73 x 0.68 cm. in the cross-sectional axis. Right iliac artery measures 0.57 cm. in the longitudinal axis. Peak systolic velocity in the right iliac artery measures 177.5 cm/sec. Procedure Aorta IVC Iliac vasculature or bypass grafts 72226. The exam was diagnostic. Exam performed in department. VL/Abd Aortic/IVC Duplex scan Interpretation Summary Aorta patent, 3.77 cm aneurysm present. Right iliac artery patent, normal caliber Left iliac artery patent, normal caliber Ordering Physician: Yi Lockhart Referring Physician: Arnie Chiang M.D. Performed By: Jordon Chopra, [facility] 12/16/24 1558 Date Geo Clinton MD CC: MICHAEL Burkett; Dr. Arnie Chiang MD Date Dictated: 12/13/24 0914 Date Transcribed: 12/16/24 2156 Supervisor Dry Cleaning: Signed Normal [facility] CBC panel Auto (Bld)on 12-13 Erythrocyte distribution width (RBC) [Ratio] 15.2 % High 11.5-15.0 [facility] Comment on above: Order Comment: Speci men Type: BLOOD SPECIMENOrdering Facility: [facility] Address: [address] [place] [address] [place] [address] Performed By: #### 5 8410-2 ####[facility]HAVIORAL HEALTH SERVICESWNCLIA [id number] [place] [address] [place] Hematocrit (Bld) [Volume fraction] 37.5 % Low 39.0-51.0 [facility] Comment on above: Order Comment: Speci men Type: BLOOD SPECIMENOrdering Facility: [facility] Address: [address] [place] [address] Performed By: #### 5 8410-2 ####[facility] HOSPITALLIA [id number] [place] [address] [place] Hemoglobin (Bld) [Mass/Vol] 11.7 g/dL Low 13.0-17.0 [facility] Comment on above: Order Comment: Speci men Type: BLOOD SPECIMENOrdering Facility: [facility] Address: [address] [place] [address] Performed By: #### 5 8410-2 ####[facility] [id number] [place] [address] [place] MCH (RBC) [Entitic mass] 28.0 pg Normal 26.0-34.0 [facility] Comment on above: Order Comment: Speci men Type: BLOOD SPECIMENOrdering Facility: [facility] Address: [address] [place] [address] Performed By: #### 5 8410-2 ####[facility] HOSPITALLIA [id number] [place] [address] [place] MCHC (RBC) [Mass/Vol] 31.2 g/dL Normal 30.5-36.0 [facility] Comment on above: Order Comment: Speci men Type: BLOOD SPECIMENOrdering Facility: [facility] Address: [address] [place] [address] Performed By: #### 5 8410-2 ####[facility] SOUTHSIDENCLI [id number] [place] [address] [place] MCV (RBC) [Entitic vol] 89.7 fL Normal 80.0-100.0 [facility] Comment on above: Order Comment: Speci men Type: BLOOD SPECIMENOrdering Facility: [facility] Address: [address] [place] [address] Performed By: #### 5 8410-2 ####[facility] SOUTHSIDEWILSTEPHON [id number] [place] [address] [place] Nucleated RBC (Bld) [#/Vol] 10*3/uL Normal <0.01 [facility] Comment on above: Order Comment: Speci men Type: BLOOD SPECIMENOrdering Facility: [facility] Address: [address] [place] [address] Performed By: #### 5 8410-2 ####[facility] SOUTHSIDENCArthur [id number] [place] [address] [place] Platelet mean volume (Bld) [Entitic vol] 8.7 fL Low 9.0-12.7 [facility] Comment on above: Order Comment: Speci men Type: BLOOD SPECIMENOrdering Facility: [facility] Address: [address] [place] [address] Performed By: #### 5 8410-2 ####[facility] SOUTHSIDEALEAHA [id number] [place] [address] [place] Platelets (Bld) [#/Vol] 427 10*3/uL High 150-400 [facility] Comment on above: Order Comment: Speci men Type: BLOOD SPECIMENOrdering Facility: [facility] Address: [address] [place] [address] Performed By: #### 5 8410-2 ####[facility] SOUTHSIDENCLIA [id number] [place] [address] [place] RBC (Bld) [#/Vol] 4.18 10*6/uL Low 4.20-6.00 [facility] Comment on above: Order Comment: Speci men Type: BLOOD SPECIMENOrdering Facility: [facility] Address: [address] [place] [address] Performed By: #### 5 8410-2 ####[facility]SIDENCSPANISH [facility] [id number] [place] [address] [place] WBC (Bld) [#/Vol] 9.67 10*3/uL Normal 3.70-11.00 [facility] Comment on above: Order Comment: Speci men Type: BLOOD SPECIMENOrdering Facility: [facility] Address: [address] [place] [address] Performed By: #### 5 8410-2 ####[facility] [id number] [address] [place] Carotid Duplex Ultrasoundon 12-13-2024 Carotid Duplex Ultrasound [facility] [address] [place] [address] Carotid Duplex Ultrasound 12/13/24 0931 MR#: [id number] Acct: [id number] Name: LELA GUERRIER Rep #: [id number] : 1950 74 From: Geo Clinton MD Attending Dr: MICHAEL Burkett Status: REG CLI Ordering Dr: Geo Clinton MD Date: 12/13/24 Location: [facility] Sex: M C Admitted: Reason For Study Reason For Study: Lt Carotid Stenosis Rt. Velocities/BP Lt. Velocities/BP Prox CCA 81.5/10.2 cm/sec. Prox CCA 79.8/13.8 cm/sec. Mid CCA 76.0/15.7 cm/sec. Mid CCA 78.7/17.1 cm/sec. Dist CCA 63.2/13.9 cm/sec. Dist CCA 78.7/19.3 cm/sec. Prox ICA 139.9/32.1 cm/sec. Prox ICA 262.5/70.2 cm/sec. Mid ICA 96.1/24.8 cm/sec. Mid ICA 242.9/58.5 cm/sec. Dist ICA 60.1/13.8 cm/sec. Dist ICA 108.6/10.1 cm/sec. Rt. ICA/CCA = 1.8. Lt. ICA/CCA = 3.3. Prox ECA 135.2/12.3 cm/sec. Prox ECA 186.4/10.1 cm/sec. Rt. Vert. 25.0/5.8 cm/sec. Lt. Vert. 62.5/18.0 cm/sec. Right Extracranial There is heterogeneous, irregular atherosclerotic plaque noted in the right common carotid artery. There is heterogeneous, irregular atherosclerotic plaque noted in the right internal carotid artery. There is heterogeneous, irregular atherosclerotic plaque noted in the right external carotid artery. Antegrade flow is noted in the right vertebral artery. Left Extracranial There is heterogeneous, irregular atherosclerotic plaque noted in the left common carotid artery. There is heterogeneous, irregular atherosclerotic plaque noted in the left internal carotid artery. There is heterogeneous, irregular atherosclerotic plaque noted in the left external carotid artery. Antegrade flow is noted in the left vertebral artery. Procedure Carotid Duplex 17736. This is a Carotid Duplex examination using B-mode, color flow and specral Doppler. The exam was diagnostic. Exam performed in department. VL/Carotid Duplex Ultrasound Interpretation Summary Moderate (50-69%) stenosis right extracranial internal carotid. Severe (>70%) stenosis left extracranial internal carotid. Patent and antegrade vertebrals bilaterally. Ordering Physician: Geo Clinton Referring Physician: Arnie Chiang M.D. Performed By: Jordon Chopra Dez 12/16/24 1557 Date Geo Clinton MD CC: MICHAEL Burkett; Dr. Geo Clinton MD; Dr. Arnie Chiang MD Date Dictated: 12/13/24930 Date Transcribed: 12/16/24 1557 Supervisor Dry Cleaning: Signed Normal [facility] Ferritin SerPl-mCncon 2024 Ferritin [Mass/Vol] 127.0 ng/mL Normal 30.3-565.7 [facility] Comment on above: Order Comment: Speci men Type: BLOOD SPECIMENOrdering Facility: [facility] Address: [address] [place] [address] Performed By: #### 2 276-4, 72400-8 ####[facility] LABCLIA [id number] [place] [address] [place] Iron and Iron binding capaci ty panelon 12-13-2024 Iron [Mass/Vol] 50 ug/dL Normal 41-186 [facility] Comment on above: Order Comment: Speci men Type: BLOOD SPECIMENOrdering Facility: [facility] Address: [address] [place] [address] Performed By: #### 2 276-4, 95801-9 ####[facility] LABIA [id number] [place] [address] [place] Iron binding capacity [Mass/Vol] 190 ug/dL Low 232-386 [facility] Comment on above: Order Comment: Speci men Type: BLOOD SPECIMENOrdering Facility: [facility] Address: [address] [place] [address] Performed By: #### 2 276-4, 69757-4 ####[facility] LABCLIA [id number] [place] [id number] [place] Iron/TIBC [Molar ratio] 26.3 % Normal 15.0-57.0 [facility] Comment on above: Order Comment: Speci men Type: BLOOD SPECIMENOrdering Facility: [facility] Address: [address] [place] [address] Performed By: #### 2 276-4, 67217-6 ####[facility] LABCLIA [id number] [place] [place] [address] [place] Lower Ext Art Exam w/o Exerc jim 12-13-2024 Lower Ext Art Exam w/o Exercis [facility] [address] [facility] [place] [address] Lower Ext Art Exam w/o Exercis 12/13/24 0941 MR#: [id number] Acct: [id number] Name: LELA GUERRIER Rep #: [id number] : 1950 74 From: Geo Clinton MD Attending Dr: MICHAEL Burkett Status: REG CLI Ordering Dr: Yi Lockhart Date: 12/13/24 Location: [facility] Sex: M C Admitted: Reason For Study Reason For Study: HX BLE Iliac Stents Procedure A bilateral lower extremity continuous wave Doppler with analog waveform analysis,segmental pressures,and ankle brachial indexes without exercise. Left Segmental Pressures Left brachial= 134mmHg. Left high thigh = 127mmHg. Left low thigh = 79mmHg. Left calf = 90mmHg. Left posterior tibial artery = 79mmHg. Left dorsalis pedis artery = 73mmHg. Left digit = 65 mmHg. The left posterior tibial artery waveforms are biphasic. The left dorsalis pedis waveforms are biphasic. Right Segmental Pressures Right high thigh = 117mmHg. Right low thigh = 117mmHg. Right calf = 89mmHg. Right posterior tibial artery = 95mmHg. Right dorsalis pedis artery = 93mmHg. Right digit = 46 mmHg. The right posterior tibial artery waveforms are biphasic. The right dorsalis pedis waveforms are biphasic. Indices The right ankle brachial index by the posterior tibial artery is 0.71. The right ankle brachial index by the dorsalis pedis is 0.69. The right digital-brachial index is 0.34. The left ankle brachial index by the posterior tibial artery is 0.59. The left ankle brachial index by the dorsalis pedis is 0.54. The left digital-brachial index is 0.49. VL/Lower Ext Art Exam w/o Exercis Interpretation Summary Right BLAIR 0.71, moderate arterial insuffiencey. Doppler/PVR waveforms and segmental pressures reveal aorto-iliac, distal SFA/popliteal disease. Left BLAIR 0.59, moderate arterial insufficiency. Doppler/PVR waveforms and segmental pressures reveal aorto-iliac, proximal femoral disease. Ordering Physician: Yi Lockhart Referring Physician: Arnie Chiang M.D. Performed By: Jordon Chopra, [facility] 12/16/24 1601 Date Geo Clinton MD CC: MICHAEL Burkett; Dr. Arnie Chiang MD Date Dictated: 12/13/24940 Date Transcribed: 12/16/24 1601 Supervisor Dry Cleaning: Signed [facility] 11-28-2024 [facility] Telephone (CHRISTENVIVIENNE) LELA GUERRIER ([id number]) 1950 M Date Time Provider Department 11/28/24 ARNIE CHIANGVIVIENNE During your visit today, we recorded the following information about you: Becky Cruz LPN 11/28/2024 3:32 PM Signed Pt calling to let you know [employer] will be faxing an order for pt's ostomy supplies. This will need to be signed and faxed back. Please watch for this. Pt thought tomorrow or next week. Bradley [phone] DEWAYNE Campos Janice, LPN 11/29/2024 1:52 PM Signed Rec'd and to pcp to review. Becky Cruz LPN 12/06/2024 8:01 AM Signed Checking status if this is completed. DEWAYNE Campos Janice, LPN 12/09/2024 4:01 PM Signed This is was signed 11/29/24 and fax on 11/30/24. Pt notified. Allergies As of Date: 11/28/2024 Noted Allergy Reaction BACTRIM (SULFAMETHOXAZOLE-TRIMETH* 14 - Other: See Comments Comments: pt. states caused severe bladder spasms Date Reviewed: 10/22/2024 Reviewed by: Laquita Merida LPN - Fully Assessed Reason for Visit[facility] [Other] Prescriptions as of 12/09/2024 - ferrous sulfate 325 mg (65 mg iron) tablet Take 1 tablet by mouth once daily. - albuterol HFA (VENTOLIN HFA) 90 mcg/actuation inhaler Inhale 2 Puffs as instructed every 4 hours as needed for wheezing/shortness of breath. - amLODIPine (NORVASC) 10 mg tablet Take 1 tablet by mouth once daily. - atorvastatin (LIPITOR) 20 mg tablet Take 1 tablet by mouth once daily. - gabapentin (NEURONTIN) 300 mg capsule Take 2 capsules by mouth three times a day. - ibuprofen (MOTRIN) 800 mg tablet Take 1 tablet by mouth three times a day as needed for pain. - lisinopril (ZESTRIL) 20 mg tablet Take 1 tablet by mouth once daily. - predniSONE (DELTASONE) 10 mg tablet Take 1 tablet by mouth once daily as needed (joint swelling). - Menthol-Zinc Oxide (CALMOSEPTINE) 0.44-20.6 % Apply to affected area once daily as needed. - acetaminophen-codeine (TYLENOL-COD #4) 300-60 mg per tablet Take 1 tablet by mouth every 4 hours as needed (30 day supply w/ 2 refills.) for up to 90 days. - clopidogrel (PLAVIX) 75 mg tablet Take 1 tablet by mouth once daily. Post stents. Problem List As Of Date 11/28/2024 Noted Resolved Tobacco use disorder [F17.200] 06/14/2005 Pure hypercholesterolemia [E78.00] 06/21/2005 PERIPH VASCULAR DIS NOS [I73.9] 06/21/2005 Cervicalgia [M54.2] 11/03/2008 BPH with obstruction/lower urinary tract sympto*12/01/2008 09/28/2017 Essential hypertension [I10] 12/01/2008 Chronic bronchitis (HCC) [J42] 01/12/2009 Rheumatoid arthritis (HCC) [M06.9] 03/04/2010 02/28/2017 AAA (abdominal aortic aneurysm) [I71.40] 05/06/2013 History of colon cancer [Z85.038] 07/19/2013 Secondary and unspecified malignant neoplasm of*09/02/2013 09/28/2020 Vitamin D deficiency [E55.9] 03/05/2014 Peripheral polyneuropathy [G62.9] 04/21/2014 Erectile dysfunction [N52.9] 09/25/2014 09/28/2017 BPH without urinary obstruction [N40.0] 08/04/2015 09/28/2017 Bladder mass [N32.89] 08/04/2015 05/25/2016 Abnormal prostate on physical examination [N42.*08/04/2015 05/25/2016 Smoking history [Z87.891] 08/04/2015 09/28/2017 Rheumatoid arthritis involving both hands (HCC)*03/04/2010 05/25/2016 History of bladder cancer [Z85.51] Rheumatoid arthritis with positive rheumatoid f*08/08/2016 02/28/2017 Centrilobular emphysema (HCC) [J43.2] 08/08/2016 09/28/2017 Gastroesophageal reflux disease [K21.9] 08/08/2016 PAD (peripheral artery disease) (HCC) [I73.9] 08/08/2016 09/28/2017 Bladder cancer (HCC) [C67.9] 08/29/2016 09/28/2020 Attention to artificial opening of urinary trac*09/07/2017 09/28/2020 History of total cystectomy [Z90.6] 03/30/2021 Hydronephrosis of right kidney [N13.30] 03/19/2024 Stage 3a chronic kidney disease (HCC) [N18.31] 03/20/2024 S/P laparotomy with lysis of adhesions [Z98.890]05/24/2024 Small bowel obstruction due to adhesions (HCC) *05/24/2024 Anemia [D64.9] 05/24/2024 Decubitus ulcer of sacral region, stage 1 [L89.*10/22/2024 Encounter Status:Closed by HALINA RIVERA on 12/09/24 [facility] 10-28-2024 CNPN Telephone (INTMWS) LELA GUERRIER ([id number]) 1950 M Date Time Provider Department 10/28/24 ARNIE CHIANG INTMWS During your visit today, we recorded the following information about you: Brenna Mills MA 10/28/2024 10:21 AM Signed ----- Message from Rowena Sarabia APRN.MAINSTREAMING FACILITATOR sent at 10/28/2024 7:26 AM EST ----- Please let the patient know he is still iron deficient but improving. Recommend one month of ferrous sulfate daily and then recheck Rowena Sarabia APRN.Brenna King MA 10/28/2024 10:24 AM Signed Patient was notified and will do iron supplement would like to know how much daily? Asked if its over the counter or prescription? If sending rx please have it sent to [facility] pended for recheck MICHAEL Diaz Elizabeth, MA 10/28/2024 11:17 AM Signed Patient was notified Brenna Mills MA Allergies As of Date: 10/28/2024 Noted Allergy Reaction BACTRIM (SULFAMETHOXAZOLE-TRIMETH* 14 - Other: See Comments Comments: pt. states caused severe bladder spasms Date Reviewed: 10/22/2024 Reviewed by: Laquita Merida LPN - Fully Assessed Reason for Visit: Results [95] Cmt: Blood work Primary Visit Diagnosis:Anemia, unspecified type [D64.9] Order(s):ferrous sulfate 325 mg (65 mg iron) tabletTake 1 tablet by mouth once daily.Disp: 30 tabletRfl: 0 IRON AND TIBC [SQIRON] Order #: [id number] FUTURE FERRITIN [SQFERR] Order #: [id number] FUTURE COMPLETE BLOOD COUNT [SQCBC] Order #: [id number] FUTURE Prescriptions as of 10/28/2024 - ferrous sulfate 325 mg (65 mg iron) tablet Take 1 tablet by mouth once daily. - albuterol HFA (VENTOLIN HFA) 90 mcg/actuation inhaler Inhale 2 Puffs as instructed every 4 hours as needed for wheezing/shortness of breath. - amLODIPine (NORVASC) 10 mg tablet Take 1 tablet by mouth once daily. - atorvastatin (LIPITOR) 20 mg tablet Take 1 tablet by mouth once daily. - gabapentin (NEURONTIN) 300 mg capsule Take 2 capsules by mouth three times a day. - ibuprofen (MOTRIN) 800 mg tablet Take 1 tablet by mouth three times a day as needed for pain. - lisinopril (ZESTRIL) 20 mg tablet Take 1 tablet by mouth once daily. - predniSONE (DELTASONE) 10 mg tablet Take 1 tablet by mouth once daily as needed (joint swelling). - Menthol-Zinc Oxide (CALMOSEPTINE) 0.44-20.6 % Apply to affected area once daily as needed. - acetaminophen-codeine (TYLENOL-COD #4) 300-60 mg per tablet Take 1 tablet by mouth every 4 hours as needed (30 day supply w/ 2 refills.) for up to 90 days. - clopidogrel (PLAVIX) 75 mg tablet Take 1 tablet by mouth once daily. Post stents. Problem List As Of Date 10/28/2024 Noted Resolved Tobacco use disorder [F17.200] 06/14/2005 Pure hypercholesterolemia [E78.00] 06/21/2005 PERIPH VASCULAR DIS NOS [I73.9] 06/21/2005 Cervicalgia [M54.2] 11/03/2008 BPH with obstruction/lower urinary tract sympto*12/01/2008 09/28/2017 Essential hypertension [I10] 12/01/2008 Chronic bronchitis (HCC) [J42] 01/12/2009 Rheumatoid arthritis (HCC) [M06.9] 03/04/2010 02/28/2017 AAA (abdominal aortic aneurysm) [I71.40] 05/06/2013 History of colon cancer [Z85.038] 07/19/2013 Secondary and unspecified malignant neoplasm of*09/02/2013 09/28/2020 Vitamin D deficiency [E55.9] 03/05/2014 Peripheral polyneuropathy [G62.9] 04/21/2014 Erectile dysfunction [N52.9] 09/25/2014 09/28/2017 BPH without urinary obstruction [N40.0] 08/04/2015 09/28/2017 Bladder mass [N32.89] 08/04/2015 05/25/2016 Abnormal prostate on physical examination [N42.*08/04/2015 05/25/2016 Smoking history [Z87.891] 08/04/2015 09/28/2017 Rheumatoid arthritis involving both hands (HCC)*03/04/2010 05/25/2016 History of bladder cancer [Z85.51] Rheumatoid arthritis with positive rheumatoid f*08/08/2016 02/28/2017 Centrilobular emphysema (HCC) [J43.2] 08/08/2016 09/28/2017 Gastroesophageal reflux disease [K21.9] 08/08/2016 PAD (peripheral artery disease) (HCC) [I73.9] 08/08/2016 09/28/2017 Bladder cancer (HCC) [C67.9] 08/29/2016 09/28/2020 Attention to artificial opening of urinary trac*09/07/2017 09/28/2020 History of total cystectomy [Z90.6] 03/30/2021 Hydronephrosis of right kidney [N13.30] 03/19/2024 Stage 3a chronic kidney disease (HCC) [N18.31] 03/20/2024 S/P laparotomy with lysis of adhesions [Z98.890]05/24/2024 Small bowel obstruction due to adhesions (HCC) *05/24/2024 Anemia [D64.9] 05/24/2024 Decubitus ulcer of sacral region, stage 1 [L89.*10/22/2024 Prescriptions ordered this encounter Disp Refills Start End FERROUS SULFATE 325 MG (65 MG IRON) * 30 t* 0 10/28/2024 Route: ORAL Sig: Take 1 tablet by mouth once daily. Encounter Status:Closed by BRENNA MILLS on 10/28/24 Normal [facility] CBC panel Auto (Bld)on 10-22 Erythrocyte distribution width (RBC) [Ratio] 15.5 % High 11.5-15.0 [facility] Comment on above: Order Comment: Speci men Type: BLOOD SPECIMENOrdering Facility: [facility] Address: [address] [place] [address] Performed By: #### 5 8410-2 ####[facility] [id number] [place] [address] [place] Hematocrit (Bld) [Volume fraction] 37.6 % Low 39.0-51.0 [facility] Comment on above: Order Comment: Speci men Type: BLOOD SPECIMENOrdering Facility: [facility] Address: [address] [place] [address] Performed By: #### 5 8410-2 ####[facility] LABIA [id number] [place] [address] [place] Hemoglobin (Bld) [Mass/Vol] 11.5 g/dL Low 13.0-17.0 [facility] Comment on above: Order Comment: Speci men Type: BLOOD SPECIMENOrdering Facility: [facility] Address: [address] [place] [address] Performed By: #### 5 8410-2 ####[facility] LABIA [id number] [place] [address] [place] MCH (RBC) [Entitic mass] 27.8 pg Normal 26.0-34.0 [facility] Comment on above: Order Comment: Speci men Type: BLOOD SPECIMENOrdering Facility: [facility] Address: [address] [place] [address] Performed By: #### 5 8410-2 ####[facility] LABCLIA [id number] [place] [address] [place] MCHC (RBC) [Mass/Vol] 30.6 g/dL Normal 30.5-36.0 [facility] Comment on above: Order Comment: Speci men Type: BLOOD SPECIMENOrdering Facility: [facility] Address: [address] [place] [address] Performed By: #### 5 8410-2 ####[facility] LABIA [id number] [place] [address] [place] MCV (RBC) [Entitic vol] 91.0 fL Normal 80.0-100.0 [facility] Comment on above: Order Comment: Speci men Type: BLOOD SPECIMENOrdering Facility: [facility] Address: [address] [place] [address] Performed By: #### 5 8410-2 ####[facility] [id number] [place] [address] [place] Nucleated RBC (Bld) [#/Vol] 10*3/uL Normal <0.01 [facility] Comment on above: Order Comment: Speci men Type: BLOOD SPECIMENOrdering Facility: [facility] Address: [address] [place] [address] Performed By: #### 5 8410-2 ####[facility] LABIA [id number] [place] [address] [place] Platelet mean volume (Bld) [Entitic vol] 9.5 fL Normal 9.0-12.7 [facility] Comment on above: Order Comment: Speci men Type: BLOOD SPECIMENOrdering Facility: [facility] Address: [address] [place] [address] Performed By: #### 5 8410-2 ####[facility] LABIA [id number] [place] [address] [place] [place] Platelets (Bld) [#/Vol] 467 10*3/uL High 150-400 [facility] Comment on above: Order Comment: Speci men Type: BLOOD SPECIMENOrdering Facility: [facility] Address: [address] [place] [address] Performed By: #### 5 8410-2 ####[facility] [id number] [place] [address] [place] RBC (Bld) [#/Vol] 4.13 10*6/uL Low 4.20-6.00 [facility] Comment on above: Order Comment: Speci men Type: BLOOD SPECIMENOrdering Facility: [facility] Address: [address] [place] [address] Performed By: #### 5 8410-2 ####[facility] [id number] [place] [address] [place] WBC (Bld) [#/Vol] 9.24 10*3/uL Normal 3.70-11.00 [facility] Comment on above: Order Comment: Speci men Type: BLOOD SPECIMENOrdering Facility: [facility] Address: [address] [place] [address] Performed By: #### 5 8410-2 ####[facility] [id number] [place] [address] [place] CNOVon 10-22-2024 CNOV Office Visit (INTMWS ) LELA GUERRIER ([id number]) 1950 M Date Time Provider Department 10/22/24 8:40 AM ARNIE CHIANG INTMWS During your visit today, we recorded the following information about you: Temperature Pulse Respiration Blood pressure 97.1 degrees 92/minute 20/minute 124/64 Weight 56.3 kg Arnie Chiang MD 10/22/2024 10:44 PM Signed This note was created using NoteWriter. Subjective Lela Guerrier is a 74 year old male here with spouse. Adapted from CDC guidelines: Opioids can provide short term benefits for moderate to severe pain. Scientific evidence is lacking for benefits to treat chronic pain. Chronic cervicalgia. Before prescribing or adjusting dose 1. Assess PAIN AND FUNCTION with validated pain scale. (PEG scale where 30% improvement from baseline is clinically significant) Q1: What number from 0-10 best describes your PAIN in the past week? (0=no pain, 10=worst you can imagine) Answer: 7 Q2: What number from 0-10 best describes how, during the past week, pain has interfered with your ENJOYMENT OF LIFE? (0=not at all, 10=complete interference) Answer: 5 Q3: What number from 0-10 best describes how, during the past week, pain has interfered with your GENERAL ACTIVITY? (0=not at all, 10=complete interference) Answer: 6 Total score=18 Previous score=15 2. Consider if NON OPIOID therapies are appropriate. (NSAIDs, TCAs, SNRI, anti-convulsants, exercise or physical therapy, cognitive behavioral therapy) Yes. 3. Talk about the TREATMENT PLAN. - Annual OPIOID AGREEMENT current. No. - Realistic goals for pain and function [...] - OARRS checked. Yes - UDS ordered. Yes Last reported dose: today. - Medication interactions checked. Yes. - Concern for OPIOID USE DISORDER, aberrant behavior. No. He also complained of a sore in the tailbone for 6 weeks. was applying diaper ointment with partial improvement. He sits a lot and his recliner had a worn cushion. Review of Systems Constitutional: Negative for fatigue, fever and unexpected weight change. HENT: Negative for congestion. Respiratory: Negative for cough and shortness of breath. Cardiovascular: Negative for chest pain, palpitations and leg swelling. Gastrointestinal: Negative for abdominal distention, abdominal pain, constipation, diarrhea and nausea. Genitourinary: Negative for difficulty urinating. Neurological: Negative for dizziness and headaches. ACTIVE PROBLEM LIST Tobacco Use Disorder Pure Hypercholesterolemia Peripheral Vascular Disease, Unspecified (Hcc) Cervicalgia Essential Hypertension Chronic Bronchitis (Hcc) Aaa (Abdominal Aortic Aneurysm) (Hcc) History of Colon Cancer Vitamin D Deficiency Peripheral Polyneuropathy History of Bladder Cancer Gastroesophageal Reflux Disease History of Total Cystectomy Hydronephrosis of Right Kidney Stage 3a Chronic Kidney Disease (Hcc) S/P Laparotomy With Lysis of Adhesions Small Bowel Obstruction Due to Adhesions (Hcc) Anemia Social History Tobacco Use Smoking status: Every Day Current packs/day: 0.50 Average packs/day: 0.5 packs/day for 54.5 years (27.3 ttl pk-yrs) Types: Cigarettes Start date: 1970 Smokeless tobacco: Never Vaping Use Vaping status: Never Used Substance Use Topics Alcohol use: Yes Comment: occasional beer Drug use: No Current Outpatient Medications Medication Sig acetaminophen-codeine (TYLENOL-COD #4) 300-60 mg per tablet Take 1 tablet by mouth every 4 hours as needed (30 day supply w/ 2 refills.) for up to 90 days. albuterol HFA (VENTOLIN HFA) 90 mcg/actuation inhaler Inhale 2 Puffs as instructed every 4 hours as needed for wheezing/shortness of breath. amLODIPine (NORVASC) 10 mg tablet Take 1 tablet by mouth once daily. atorvastatin (LIPITOR) 20 mg tablet Take 1 tablet by mouth once daily. ibuprofen (MOTRIN) 800 mg tablet Take 1 tablet by mouth three times a day as needed for pain. lisinopril (ZESTRIL) 20 mg tablet Take 1 tablet by mouth once daily. gabapentin (NEURONTIN) 300 mg capsule Take 2 capsules by mouth three times a day. predniSONE (DELTASONE) 10 mg tablet Take 1 tablet by mouth once daily as needed (joint swelling). ondansetron (ZOFRAN) 8 mg tablet Take 1 tablet by mouth every 8 hours as needed for nausea/vomiting. clopidogrel (PLAVIX) 75 mg tablet Take 1 tablet by mouth once daily. Post stents. No current facility-administered medications for this visit. Objective BP 124/64 (BP Site: Left Ar (more content not included)... Normal [facility] Ferritin SerPl-ncon 2023 Ferritin [Mass/Vol] 108.0 ng/mL Normal 30.3-565.7 [facility] Comment on above: Order Comment: Speci men Type: BLOOD SPECIMENOrdering Facility: [facility] Address: [address] [place] [address] Performed By: #### 5 0190-8, 98195-8, 2275-4 ####[facility] [id number] [place] [address] [place] Iron and Iron binding capaci panelon 10-22-2024 Iron [Mass/Vol] 38 ug/dL Low 41-186 [facility] Comment on above: Order Comment: Speci men Type: BLOOD SPECIMENOrdering Facility: [facility] Address: [address] [place] [address] Performed By: #### 5 0190-8, 77861-7, 2275- ####[facility] [id number] [place] [address] [place] Iron binding capacity [Mass/Vol] 228 ug/dL Low 232-386 [facility] Comment on above: Order Comment: Speci men Type: BLOOD SPECIMENOrdering Facility: [facility] Address: [address] [place] [address] Performed By: #### 5 0190-8, 67914-8, 2275- ####[facility] [id number] [place] [id number] [place] Iron/TIBC [Molar ratio] 16.7 % Normal 15.0-57.0 [facility] Comment on above: Order Comment: Speci men Type: BLOOD SPECIMENOrdering Facility: [facility] Address: [address] [place] [address] Performed By: #### 5 0190-8, 34717-7, 2276-01 ####[facility] LABCL[facility] [id number] [place] [address] [place] Lipid 1996 panelon 4 Cholesterol [Mass/Vol] 129 mg/dL Normal <200 [facility] Comment on above: Order Comment: Speci men Type: BLOOD SPECIMENOrdering Facility: [facility] Address: [address] [place] [address] Result Comment: <200 mg/dL, Desirable 200-239 mg/dL, Borderline high >239 mg/dL, High Performed By: #### 5 0190-8, 08671-9, 2276-01 ####[facility] LABCL[facility] [id number] [address] [place] Cholesterol in HDL [Mass/Vol] 48 mg/dL Normal >39 [facility] Comment on above: Order Comment: Speci men Type: BLOOD SPECIMENOrdering Facility: [facility] Address: [address] [place] [address] Result Comment: 40-5 9 mg/dL, Acceptable >59 mg/dL, High: Negative risk factor for coronary heart disease <40 mg/dL, Low: Positive risk factor for coronary heart disease Performed By: #### 5 0190-8, 79895-4, 2276-01 ####[facility] LABCL[facility] [id number] [address] [place] Cholesterol in LDL [Mass/Vol] 64 mg/dL Normal <100 [facility] Comment on above: Order Comment: Speci men Type: BLOOD SPECIMENOrdering Facility: [facility] Address: [address] [place] [address] Result Comment: <100 mg/dL, Optimal 100-129 mg/dL, Near optimal/above optimal 130-159 mg/dL, Borderline high 160-189 mg/dL, High >189 mg/dL, Very high Secondary prevention optimal LDL Cholesterol levels are recommended to be < 70 mg/dL Performed By: #### 5 0190-8, 79487-0, 2276-01 ####[facility] LABCL[facility] [id number] [place] [address] [place] Cholesterol in LDL/Cholesterol in HDL [Mass ratio] 1.33 {ratio} Normal <2.54 [facility] Comment on above: Order Comment: Speci men Type: BLOOD SPECIMENOrdering Facility: [facility] Address: [address] [place] [address] Result Comment: Refe francescace: 1. National Cholesterol Education Program ATP III Guideline At-A-Glance Quick Desk Reference: National Heart, Lung, and Blood [place]. National Institutes of Health. 2001: NIH Publication No. 01-3305. 2. An International Atherosclerosis Society position paper: global recommendations for the management of dyslipidemia: executive summary, Atherosclerosis. 2014: 232(2):410-413. Performed By: #### 5 0190-8, 46414-2, 2275- ####[facility] LABCLIA [id number] [place] [address] [place] Cholesterol in VLDL [Mass/Vol] 17 mg/dL Normal <30 [facility] Comment on above: Order Comment: Speci men Type: BLOOD SPECIMENOrdering Facility: [facility] Address: [address] [place] [address] Performed By: #### 5 0190-8, 04533-7, 2275- ####[facility] LABCL[facility] [id number] [place] [address] [place] Cholesterol non HDL [Mass/Vol] 81 mg/dL Normal <130 [facility] Comment on above: Order Comment: Speci men Type: BLOOD SPECIMENOrdering Facility: [facility] Address: [address] [place] [address] Result Comment: <130 mg/dL, Optimal 130-159 mg/dL, Near optimal/above optimal 160-189 mg/dL, Borderline high 190-219 mg/dL, High >219 mg/dL, Very high Secondary prevention optimal non HDL Cholesterol levels are recommended to be <100 mg/dL Performed By: #### 5 0190-8, 52093-0, 2276-01 ####[facility] LABCL[facility] [id number] [place] [address] [place] Cholesterol.total/Ch olesterol in HDL [Mass ratio] 2.69 {ratio} Normal <5.10 [facility] Comment on above: Order Comment: Speci men Type: BLOOD SPECIMENOrdering Facility: [facility] Address: [address] [place] [address] Performed By: #### 5 0190-8, 10793-5, 2276-01 ####[facility]CL[facility] [id number] [place] [address] [place] FASTING TIME 12 hrs Normal [facility] Comment on above: Order Comment: Speci men Type: BLOOD SPECIMENOrdering Facility: [facility] Address: [address] [place] [address] Performed By: #### 5 0190-8, 38142-5, 2276-01 ####[facility]CL[facility] [id number] [place] [address] [place] Triglyceride [Mass/Vol] 84 mg/dL Normal <150 [facility] Comment on above: Order Comment: Speci men Type: BLOOD SPECIMENOrdering Facility: [facility] Address: [address] [place] [address] Result Comment: <150 mg/dL, Normal 150-199 mg/dL, Borderline high 200-499 mg/dL, High >499 mg/dL, Very high Performed By: #### 5 0190-8, 81301-2, 2276-01 ####[facility] LABCL[facility] [id number] [place] [id number] [place] TOXICOLOGY SCREEN, ROUTINE U RINEon 10-22-2024 Amphetamines Confirm (U) [Mass/Vol] Negative Negative [facility] Comment on above: Cutoff threshold at 1000 ng/mL. Barbiturates Urine Negative Negative [facility] Comment on above: Cutoff threshold at 200 ng/mL. Benzodiazepines Urine Negative Negative [facility] Comment on above: Cutoff threshold at 200 ng/mL. Cannabinoids Screen Ql (U) Negative Negative [facility] Comment on above: Cutoff threshold at 50 ng/mL. Cocaine Ql (U) Negative Negative [facility] Comment on above: Cutoff threshold at 300 ng/mL. Ethanol (U) [Mass/Vol] mg/dL NINF - 11 mg/dL [facility] Interpretation and review of laboratory results Abnormal [facility] Opiates Screen Ql (U) Positive Abnormal Negative [facility] Comment on above: Cutoff threshold at 300 ng/mL. oxyCODONE cutoff Screen (U) [Mass/Vol] Negative Negative [facility] Comment on above: Cutoff threshold at 100 ng/mL. Phencyclidine Ql (U) Negative Negative [facility] Comment on above: Cutoff threshold at 25 ng/mL. Immunoassay screen o nly. Cross reactivity with other substances can occur with immunoassay screening. Detection of any drug(s) in this urine toxicology panel is presumptive only. These tests are for medical purposes only and should not be used for compliance monitoring, legal, or forensic use. Samples should be within normal physiological conditions (e.g. pH). This assay does not include adulteration/specimen validity testing. In clinical settings, confirmatory testing is at the practitioner's discretion [1]. If clinically indicated, confirmation by high specificity, quantitative methodology, which includes adulteration/specimen validity testing, may be requested on the same specimen through Client Services ([phone]) if contacted within 48 hours of initial testing. [1]Substance Abuse and Mental Health Services Administration (2012). Clinical Drug Testing in Primary Care Technical Assistance Publication Series 32. Department of Health and Human Services, [place], p.10. [facility] Amphetamines Confirm (U) [Mass/Vol] Negative Normal Negative [facility] Comment on above: Order Comment: Speci men Type: URINE SPECIMENOrdering Facility: [facility] Address: [facility] [place] [address] Result Comment: Cuto ff threshold at 1000 ng/mL. Performed By: #### U TOX2 ####[facility] LABCL[facility] [id number] [place] [address] [place] BARBITURATES, URINE Negative Normal Negative [facility] Comment on above: Order Comment: Speci men Type: URINE SPECIMENOrdering Facility: [facility] Address: [address] [place] [address] Result Comment: Cuto ff threshold at 200 ng/mL. Performed By: #### U TOX2 ####[facility] LABCL[facility] [id number] [place] [address] [place] BENZODIAZEPINES, UR Negative Normal Negative [facility] Comment on above: Order Comment: Speci men Type: URINE SPECIMENOrdering Facility: [facility] Address: [address] [place] [address] Result Comment: Cuto ff threshold at 200 ng/mL. Performed By: #### U TOX2 ####[facility]CL[facility] [id number] [place] [address] [place] Cannabinoids Screen Ql (U) Negative Normal Negative [facility] Comment on above: Order Comment: Speci men Type: URINE SPECIMENOrdering Facility: [facility] Address: [address] [place] [address] Result Comment: Cuto ff threshold at 50 ng/mL. Performed By: #### U TOX2 ####[facility] [id number] [place] [address] [place] Cocaine Ql (U) Negative Normal Negative [facility] Comment on above: Order Comment: Speci men Type: URINE SPECIMENOrdering Facility: [facility] Address: [address] [place] [address] Result Comment: Cuto ff threshold at 300 ng/mL. Performed By: #### U TOX2 ####[facility]CL[facility] [id number] [place] [address] [place] Ethanol (U) [Mass/Vol] <11 Normal <11 [facility] Comment on above: Order Comment: Speci men Type: URINE SPECIMENOrdering Facility: [facility] Address: [address] [place] [address] Performed By: #### U TOX2 ####[facility] [id number] [place] [address] [place] Opiates Screen Ql (U) Positive Abnormal Negative [facility] Comment on above: Order Comment: Speci men Type: URINE SPECIMENOrdering Facility: [facility] Address: [address] [place] [address] Result Comment: Cuto ff threshold at 300 ng/mL. Performed By: #### U TOX2 ####[facility]CL[facility] [id number] [place] [address] [place] oxyCODONE cutoff Screen (U) [Mass/Vol] Negative Normal Negative [facility] Comment on above: Order Comment: Speci men Type: URINE SPECIMENOrdering Facility: [facility] Address: [address] [place] [address] Result Comment: Cuto ff threshold at 100 ng/mL. Performed By: #### U TOX2 ####[facility] [id number] [address] [place] Phencyclidine Ql (U) Negative Normal Negative [facility] Comment on above: Order Comment: Speci men Type: URINE SPECIMENOrdering Facility: [facility] Address: [address] [place] [address] Result Comment: Cuto ff threshold at 25 ng/mL. Performed By: #### U TOX2 ####[facility] [id number] [place] [address] [place] MR/BMS.[place] 08-23-2024 [facility] [address] [place], [place] [address] OFFICE VISIT Date of Service: 08/23/24 MR#: [id number] Acct: [id number] Name: LELA GUERRIER Rep #: [id number] : 1950 Provider: MICHAEL Burkett Age/Sex: 74/M Location: BMS.BVS Status: Signed Intake Vital Signs 04/18/24 12:37 08/23/24 09:13 Height 5 ft 7 in Weight: 120 lb BP 130/72 H Blood Pressure Location Lt brachial Position Sitting Respiration 16 Pulse 113 H Pulse Source Monitor Temp 98.6 F Temp Source Temporal Pulse Oximetry (%) 94 Oxygen Delivery Method room air Intake Visit Reasons: FORMER PT OF DR TYSON, POST CAROTID DUPLEX Chief Complaint: establish care Is patient in pain?: Yes Allergies sulfamethoxazole (From Bactrim) Adverse Reaction (Verified 08/23/24 09:15) Other trimethoprim (From Bactrim) Adverse Reaction (Verified 08/23/24 09:15) Other Medications ???Medication ???Instructions ???Recorded ???Confirmed ???Type acetaminophen 300 mg-codeine 60 mg 1 ea PO Q4H PRN PAIN 07/22/13 08/23/24 History tablet gabapentin 300 mg capsule 300 mg PO TID NERVE PAIN 03/07/16 08/23/24 History atorvastatin 20 mg tablet 20 mg PO DAILY CHOLESTEROL 05/27/21 08/23/24 History ibuprofen 800 mg tablet 800 mg PO Q8H PRN PAIN 05/27/21 08/23/24 History prednisone 10 mg tablet 10 mg PO DAILY PRN ALLERGY SYMPTOMS 05/27/21 08/23/24 History amlodipine 10 mg tablet 10 mg PO DAILY BLOOD PRESSURE 12/13/23 08/23/24 History lisinopril 20 mg tablet 20 mg PO DAILY BLOOD PRESSURE 12/13/23 08/23/24 History albuterol sulfate 90 mcg/actuation 2 puff inhalation Q4H PRN WHEEZING 04/17/24 08/23/24 History aerosol inhaler clopidogrel 75 mg tablet 75 mg PO DAILY BLOOD THNNER 04/17/24 08/23/24 History docusate sodium 100 mg capsule 100 mg PO DAILY STOOL SOFTENER 04/17/24 08/23/24 History (Colace) ondansetron 4 mg disintegrating 4 mg PO Q8H PRN NAUSEA 04/17/24 08/23/24 History tablet Have you fallen in the past year?: No PFSH Medical History Colostomy in place Wears glasses Cancer Alcohol use History of steroid therapy Rheumatoid arthritis Anemia High cholesterol Easy bruising Back pain Injury of head and neck Smoker COPD (chronic obstructive pulmonary disease) Neuropathy History of stress test Personal history of prostate cancer Personal history of bladder cancer Carotid artery disease PAD (peripheral artery disease) BPH (benign prostatic hyperplasia) HTN (hypertension) Personal history of colon cancer GERD (gastroesophageal reflux disease) AAA (abdominal aortic aneurysm) PAD (peripheral artery disease) Surgical History History of ileal conduit Hx of surgical procedure History of total cystectomy History of radical prostatectomy S/P arteriogram of extremity History of bladder surgery S/P peripheral artery angioplasty S/P colonoscopy S/P colectomy Family History (Updated 08/23/24 @ 09:13 by Kinga Renee) Other CVA (cerebral vascular accident) Diabetes Social History (Updated 08/23/24 @ 09:12 by Kinga Renee) Smoking Status: Heavy Smoker (>10/day) Tobacco: How many years used: 54 HPI HPI HPI: LELA GUERRIER, is a 74 M who presents to the office today to establish care for carotid artery disease, AAA, and PAD for which he previously followed with Dr. Tyson. With respect to his carotid artery disease, this has to this point been asymptomatic. No prior interventions. Most recent carotid duplex June 2024 showed right ICA less than 50% stenosis and left ICA 50 to 69% stenosis with max PSV 185.1/44.6 cm/s in the mid ICA. He denies any episodes of focal neurologic symptoms including vision loss, facial droop, unilateral weakness or numbness/paresthesias, dysarthria. Regarding his AAA, last duplex in November 2023 showed mid abdominal AAA measuring 3.14 x 3.31 cm with associated mural thrombus. This was stable compared to his prior duplex in 2020. With respect to his PAD, patient has had multiple prior lower extremity endovascular interventions back to 2004 when initial bilateral iliac stents were placed. Dr. Tyson has performed many procedures addressing restenosis of the stents. Most recent procedures available for review and are EMR as follows: In June 2019 left common femoral spider device thrombus removal and angioplasty, right common iliac covered stent placement, left common iliac covered angioplasty/stent, left external iliac angioplasty/stent, bridging left common iliac to left external iliac stent; in May 2021 right external iliac, left common iliac and external iliac angioplasty. His most recent arterial study was November 2023: Right BLAIR 0.73 (more content not included)... Normal [facility] CNOVon 07-18-2024 CNOV Office Visit (INTMWS ) LELA GUERRIER ([id number]) 1950 M Date Time Provider Department 07/18/24 8:40 AM ROWENA SARABIA INTMWS During your visit today, we recorded the following information about you: Pulse Respiration Blood pressure Weight 108/minute 24/minute 123/70 54.9 kg Rowena Sarabia, [employer]ATION SUPERVISOR.MAINSTREAMING FACILITATOR 07/18/2024 9:06 AM Signed CC: Patient presents with: F/U 3 Month HPI Lela Guerrier is a 74 year old male who presents today for above. HTN-Medication changes:No Taking all medications as prescribed: Yes Side effects: No Home BP's: Yes 120's/70's Denies: headache, chest pain, palpitations, dyspnea, and peripheral edema. Last 3 Encounter BP Readings: Date: BP: 07/18/2024 123/70 05/24/2024 124/76 01/08/2024 123/68 PVD: prescribed Plavix by vascular doctor. Patient decreased dose to every other day due to excessive bruising. He has not discussed with vascular. Chronic bronchitis: denies frequent cough, wheezing or SOB. Uses albuterol infrequently as needed. Review of Systems See HPI PAST MEDICAL HISTORY Diagnosis Date AAA (abdominal aortic aneurysm) ([facility]) 05/06/2013 Bladder cancer (HCC) 08/29/2016 Bladder tumor BPH without urinary obstruction 08/04/2015 Cervicalgia 11/03/2008 CHRONIC AIRWAY OBSTRUCTION NEC 01/12/2009 Colon cancer (HCC) 07/19/2013 s/p laparoscopic with conversion to open low anterior resection of the colon with abscess and appendectomy and completed chemo 2013 Hydronephrosis 2023 HYPERTENSION NOS 12/01/2008 Hypertrophy of prostate without [...] COLONOSCOPY 07/04/2017 recheck in 3 years, Dr. Tyson COLONOSCOPY FLX DX W/COLLJ SPEC WHEN PFRMD [...] DX W/WO COLLJ SPEC BR/WA SPX 07/19/2013 RADICAL PROSTATECTOMY 2016 REVASCULARIZATION ILIAC ARTERY ANGIOP 1ST VSL 09/12/2011 [facility] VAD W/SUBQ PORT/SKIDWAY WORKER CTR/PRPH INSJ 09/03/2014 Removal right IJ port TRANSLUMINAL ANGIOPLASTY - ILIAC 01/15/2004 bilateral stents TRANSLUMINAL ANGIOPLASTY - ILIAC 04/14/2014 bilateral. ALLERGIES Bactrim [Sulfamethoxazole-Trimethopr im] MEDICATIONS acetaminophen-codeine (TYLENOL-COD #4) 300-60 mg per tablet Take 1 tablet by mouth every 4 hours as needed (30 day supply w/ 2 refills.) for up to 90 days. albuterol HFA (VENTOLIN HFA) 90 mcg/actuation inhaler Inhale 2 Puffs as instructed every 4 hours as needed for wheezing/shortness of breath. predniSONE (DELTASONE) 10 mg tablet Take 1 tablet by mouth once daily as needed (joint swelling). lisinopril (ZESTRIL) 20 mg tablet Take 1 tablet by mouth once daily. atorvastatin (LIPITOR) 20 mg tablet Take 1 tablet by mouth once daily. amLODIPine (NORVASC) 10 mg tablet Take 1 tablet by mouth once daily. ibuprofen (MOTRIN) 800 mg tablet Take 1 tablet by mouth three times a day as needed for pain. gabapentin (NEURONTIN) 300 mg capsule Take 2 capsules by mouth three times daily for 360 days. ondansetron (ZOFRAN) 8 mg tablet Take 1 tablet by mouth every 8 hours as needed for nausea/vomiting. clopidogrel (PLAVIX) 75 mg tablet Take 1 tablet by mouth once daily. Post stents. FAMILY HISTORY Problem Relation Age of Onset Stroke Father Ischemic Heart Disease Mother Heart Maternal Grandmother Heart Brother Social History Tobacco Use Smoking status: Every Day Current packs/day: 0.50 Average packs/day: 0.5 packs/day for 54.3 years (27.1 ttl pk-yrs) Types: Cigarettes Start date: 1970 Smokeless tobacco: Never Vaping Use Vaping status: Never Used Substance Use Topics Alcohol use: Yes Comment: occasional beer Drug use: No BP 123/70 Pulse 108 Resp 24 Wt 54.9 kg (121 lb 0.5 oz) SpO2 95% BMI 18.56 kg/m? Physical Exam Vitals reviewed. Constitutional: Appearance: Normal appearance. Cardiova (more content not included)... Normal [facility] Carotid Duplex Ultrasoundon 07-15-2024 Carotid Duplex Ultrasound [facility] [address] [place] [address] Carotid Duplex Ultrasound 07/15/24 1011 MR#: [id number] Acct: [id number] Name: LELA GUERRIER Rep #: [id number] : 1950 74 From: Geo Clinton MD Attending Dr: Dr. Geo Clinton MD Status: LEONOR PICKERING Ordering Dr: Geo Clinton MD Date: 07/15/24 Location: [facility] Sex: M C Admitted: Reason For Study: Carotid stenosis Rt. Velocities/BP Lt. Velocities/BP Prox CCA 72.1/6.9 cm/sec. Prox CCA 72.9/11.3 cm/sec. Mid CCA 59.8/9.7 cm/sec. Mid CCA 64.1/15.7 cm/sec. Dist CCA 55.11/12.6 cm/sec. Dist CCA 76.2/14.6 cm/sec. Prox ICA 72.8/9 cm/sec. Prox ICA 104.7/18.8 cm/sec. Mid ICA 99.8/26.2 cm/sec. Mid ICA 185.1/44.6 cm/sec. Dist ICA 85.1/20 cm/sec. Dist ICA 101.6/13.8 cm/sec. Rt. ICA/CCA = 1.67. Lt. ICA/CCA = 2.89. Prox ECA 215.9/8.6 cm/sec. Prox ECA 159.5/6 cm/sec. Rt. Vert. 39.4 cm/sec. Lt. Vert. 47.6/11.3 cm/sec. Right Extracranial There is heterogeneous, irregular atherosclerotic plaque noted in the right common carotid artery. There is heterogeneous, irregular atherosclerotic plaque noted in the right internal carotid artery. There is heterogeneous, irregular atherosclerotic plaque noted in the right external carotid artery. Antegrade flow is noted in the right vertebral artery. Left Extracranial There is heterogeneous, irregular atherosclerotic plaque noted in the left common carotid artery. There is heterogeneous, irregular atherosclerotic plaque noted in the left internal carotid artery. There is heterogeneous, irregular atherosclerotic plaque noted in the left external carotid artery. Antegrade flow is noted in the left vertebral artery. Procedure Carotid Duplex 59530. This is a Carotid Duplex examination using B-mode, color flow and specral Doppler. Exam performed in department. VL/Carotid Duplex Ultrasound Interpretation Summary Mild (<50%) stenosis right extracranial internal carotid. Moderate (50-69%) stenosis left extracranial internal carotid. Patent and antegrade vertebrals bilaterally. Ordering Physician: Geo Clinton Referring Physician: Arnie Chiang M.D. Performed By: Willinger, Darline, RVT 07/15/241939 Date Geo Clinton MD CC: Dr. Geo Clinton MD; Dr. Arnie Chiang MD Date Dictated: 07/15/24 1011 Date Transcribed: 07/15/241939 Supervisor Dry Cleaning: Signed Normal [facility] CBC panel Auto (Bld)on 05-24 Erythrocyte distribution width (RBC) [Ratio] 15.5 % High 11.5 - 15.0 % [facility] Hematocrit (Bld) [Volume fraction] 33.3 % Low 39.0 - 51.0 % [facility] Hemoglobin (Bld) [Mass/Vol] 10.6 g/dL Low 13.0 - 17.0 g/dL [facility] Interpretation and review of laboratory results Abnormal [facility] MCH (RBC) [Entitic mass] 29.4 pg 26.0 - 34.0 pg [facility] MCHC (RBC) [Mass/Vol] 31.8 g/dL 30.5 - 36.0 g/dL [facility] MCV (RBC) [Entitic vol] 92.2 fL 80.0 - 100.0 fL [facility] Nucleated RBC (Bld) [#/Vol] NINF [facility] Platelet mean volume (Bld) [Entitic vol] 9.3 fL 9.0 - 12.7 fL [facility] Platelets (Bld) [#/Vol] 636 10*3/uL High [facility] RBC (Bld) [#/Vol] 3.61 10*6/uL Low 4.20 - 6.00 m/uL [facility] WBC (Bld) [#/Vol] 10.37 10*3/uL [facility] Erythrocyte distribution width (RBC) [Ratio] 15.5 % High 11.5-15.0 [facility] Comment on above: Order Comment: Speci men Type: BLOOD SPECIMENOrdering Facility: [facility] Address: [address] [place] [address] [place] [address] Performed By: #### 5 8410-2 ####[facility] MILLWNCLIA [id number] [place] [address] [place] Hematocrit (Bld) [Volume fraction] 33.3 % Low 39.0-51.0 [facility] Comment on above: Order Comment: Speci men Type: BLOOD SPECIMENOrdering Facility: [facility] Address: [address] [place] [address] Performed By: #### 5 8410-2 ####[facility] SOUTHSIDENCLIA [id number] [address] [place] Hemoglobin (Bld) [Mass/Vol] 10.6 g/dL Low 13.0-17.0 [facility] Comment on above: Order Comment: Speci men Type: BLOOD SPECIMENOrdering Facility: [facility] Address: [address] [place] [address] Performed By: #### 5 8410-2 ####[facility]IT[facility] [id number] [place] [address] [place] MCH (RBC) [Entitic mass] 29.4 pg Normal 26.0-34.0 [facility] Comment on above: Order Comment: Speci men Type: BLOOD SPECIMENOrdering Facility: [facility] Address: [address] [place] [address] Performed By: #### 5 8410-2 ####[facility] SOUTHSIDENCLIA [id number] [place] [address] [place] MCHC (RBC) [Mass/Vol] 31.8 g/dL Normal 30.5-36.0 [facility] Comment on above: Order Comment: Speci men Type: BLOOD SPECIMENOrdering Facility: [facility] Address: [address] [place] [address] Performed By: #### 5 8410-2 ####[facility] [id number] [place] [address] [place] MCV (RBC) [Entitic vol] 92.2 fL Normal 80.0-100.0 [facility] Comment on above: Order Comment: Speci men Type: BLOOD SPECIMENOrdering Facility: [facility] Address: [address] [place] [address] Performed By: #### 5 8410-2 ####[facility] SOUTHSIDEWILArthur [id number] [place] [address] [place] Nucleated RBC (Bld) [#/Vol] 10*3/uL Normal <0.01 [facility] Comment on above: Order Comment: Speci men Type: BLOOD SPECIMENOrdering Facility: [facility] Address: [address] [place] [address] Performed By: #### 5 8410-2 ####[facility]SIDENCSPAN[facility] [id number] [place] [address] [place] Platelet mean volume (Bld) [Entitic vol] 9.3 fL Normal 9.0-12.7 [facility] Comment on above: Order Comment: Speci men Type: BLOOD SPECIMENOrdering Facility: [facility] Address: [address] [place] [address] Performed By: #### 5 8410-2 ####[facility] SOUTHSIDENCLIA [id number] [place] [address] [place] Platelets (Bld) [#/Vol] 636 10*3/uL High 150-400 [facility] Comment on above: Order Comment: Speci men Type: BLOOD SPECIMENOrdering Facility: [facility] Address: [address] [place] [address] Performed By: #### 5 8410-2 ####[facility] S[facility]THSIDENCLIA [id number] [place] [address] [place] RBC (Bld) [#/Vol] 3.61 10*6/uL Low 4.20-6.00 [facility] Comment on above: Order Comment: Speci men Type: BLOOD SPECIMENOrdering Facility: [facility] Address: [address] [place] [address] Performed By: #### 5 8410-2 ####[facility] SOUTHSIDENCLIA [id number] [place] [address] [place] WBC (Bld) [#/Vol] 10.37 10*3/uL Normal 3.70-11.00 [facility] Comment on above: Order Comment: Speci men Type: BLOOD SPECIMENOrdering Facility: [facility] Address: [address] [place] [address] Performed By: #### 5 8410-2 ####[facility] S[facility]THSIDENCLIA [id number] [address] [place] CNOVon 05-24-2024 CNOV Office Visit (INTMWS ) LELA GUERRIER ([id number]) 1950 M Date Time Provider Department 05/24/24 9:20 AM ROWENA SARABIA INTMWS During your visit today, we recorded the following information about you: Pulse Respiration Blood pressure Weight 74/minute 20/minute 124/76 54.5 kg Rowena Sarabia, HYDRO STATION SUPERVISOR.MAINSTREAMING FACILITATOR 05/24/2024 10:46 AM Signed CC: Patient presents with: Hospital F/U: [facility] - bowel obstruction surgery follow up HPI Lela Guerrier is a 74 year old male who presents today for above. He was admitted to [facility] 04/19 to 05/10 for SBO. On 04/30 he had exploratory laparotomy and lysis of adhesions. He was on TPN initially following surgery and eventually transitioned to regular diet. Discharged home with usual medications. He lost 10 lbs during admission. Appetite is improving, drinking at least one Ensure a day and no further weight loss. Still feeling a little weak, scheduled for outpatient PT/OT. Incision looks good. Denies abdominal pain. Stools are little loose. Denies constipation, black/bloody stools, rectal bleeding, nausea, vomiting. Complications during admission: MIRIAM- IV hydration, Lisinopril held. Creatinine at baseline by discharge. He is already established with nephrology and urology, will follow-up per usual. He is staying well hydrated, pushing fluids. UTI (enterococcus faecalis)- treated with IV Zosyn. Normal ileostomy output. No hematuria, foul smell, cloudiness, abnormal color, back/flank pain Anemia secondary to blood loss- transfused with 1 unit of PRBC's on 05/04, Hgb 7.4 at discharge and patient remained asymptomatic during admission. Denies dizziness, lightheadedness, feeling faint, syncope Large, left pleural effusion- thoracentesis on 04/22 with pigtail placed. Cytology was negative for malignancy. Patient denies SOB, cough, wheezing or chest tightness. Review of Systems Constitutional: Positive for fatigue. Negative for chills, diaphoresis and fever. Cardiovascular: Negative for chest pain, palpitations and leg swelling. PAST MEDICAL HISTORY 05/06/2013: AAA (abdominal aortic aneurysm) (HCC) 08/29/2016: Bladder cancer (HCC) No date: Bladder tumor 08/04/2015: BPH without urinary obstruction 11/03/2008: Cervicalgia 01/12/2009: CHRONIC AIRWAY OBSTRUCTION NEC 07/19/2013: Colon cancer (HCC) Comment: s/p laparoscopic with conversion to open low anterior resection of the colon with abscess and appendectomy and completed chemo 2013 2023: Hydronephrosis 12/01/2008: HYPERTENSION NOS 12/01/2008: Hypertrophy of prostate without urinary obstruction and other lower urinary tract symptoms (LUTS) No date: Malignant neoplasm of overlapping sites of bladder (HCC) 06/14/2005: Pain in limb 06/21/2005: PERIPH VASCULAR DIS NOS Comment: s/p bilateral common iliac artery [place] stenting. s/p angioplasty of instent PAD stent 201306/21/2005: PURE HYPERCHOLESTEROLEM 03/04/2010: Rheumatoid arthritis(714.0) Comment: hands 06/14/2005: Tobacco use disorder PAST SURGICAL HISTORY 07/03/2019: ANGIOPLASTY FEMORAL/POP; Bilateral Comment: multiple stents (4) 06/21/2021: ANGIOPLASTY-ILIAC; Bilateral Comment: R exteranl iliac angioplasty/stent. L common iliac, external iliac angioplasty 07/25/2013: COLECTOMY PRTL W/COLOPROCTOSTOMY 07/04/2017: COLONOSCOPY Comment: recheck in 3 years, Dr. Tyson 07/12/2013: COLONOSCOPY FLX DX W/COLLJ SPEC WHEN PFRMD Comment: Colonoscopy 07/11/2014: COLONOSCOPY FLX DX W/COLLJ SPEC WHEN PFRMD Comment: repeat in 3 years 07/12/2013: ESOPHAGOGASTRODUODENOSCOPY TRANSORAL DIAGNOSTIC Comment: EGD 08/28/2013: INSJ TUNNELED CTR VAD W/SUBQ PORT AGE 5 YR/> Comment: RIGHT 09/08/2016: LAP CYSTECTOMY COMPLETE WITH CONDUIT 07/25/2013: LAPAROSCOPIC APPENDECTOMY 08/29/2016: LAPAROSCOPIC RADICAL PROSTATECTOMY Comment: Cysto-prostatectomy, Ileal conduit, pelvic LN dissection 07/19/2013: PROCTOSGMDSC RGD DX W/WO COLLJ SPEC BR/WA SPX 2016: RADICAL PROSTATECTOMY 09/12/2011: REVASCULARIZATION ILIAC ARTERY ANGIOP 1ST VSL 09/03/2014: RMVL CASPER CTR VAD W/SUBQ PORT/SKIDWAY WORKER CTR/PRPH INSJ Comment: Removal right IJ port 01/15/2004: TRANSLUMINAL ANGIOPLASTY - ILIAC Comment: bilateral stents 04/14/2014: TRANSLUMINAL ANGIOPLASTY - ILIAC Comment: bilateral. ALLERGIES Bactrim [Sulfamethoxazole-Trimethopr im] MEDICATIONS predniSONE (DELTASONE) 10 mg tablet Take [...] times a day as needed for pain. gabapentin (NEURONTIN) 300 mg capsule T (more content not included)... Normal [facility] SHANAENon 05-24-2024 MARISSA Telephone (INTMWS) LELA GUERRIER ([id number]) 1950 M Date Time Provider Department 05/24/24 ROWENA SARABIA INTMWS During your visit today, we recorded the following information about you: Rowena Sarabia APRN.CNP 05/24/2024 1:33 PM Signed Please let the patient know anemia has improved, blood counts are trending up. Kidney function a little worse than at discharge, follow-up with the kidney specialist. Chest x-ray showing small amount of fluid on the left side of the lung, this does not need any treatment but notify us right away or go to the ER if he develops shortness of breath Rowena Sarabia APRN.Fara Moraels LPN 05/24/2024 1:50 PM Signed Patient aware, verbalizes understanding. Fara Rios LPN Allergies As of Date: 05/24/2024 Noted Allergy Reaction BACTRIM (SULFAMETHOXAZOLE-TRIMETH* 14 - Other: See Comments Comments: pt. states caused severe bladder spasms Date Reviewed: 05/24/2024 Reviewed by: Rowena Sarabia APRN.[facility] - Fully Assessed Prescriptions as of 05/24/2024 - albuterol HFA (VENTOLIN HFA) 90 mcg/actuation inhaler Inhale 2 Puffs as instructed every 4 hours as needed for wheezing/shortness of breath. - predniSONE (DELTASONE) 10 mg tablet Take 1 tablet by mouth once daily as needed (joint swelling). - acetaminophen-codeine (TYLENOL-COD #4) 300-60 mg per tablet Take 1 tablet by mouth every 4 hours as needed (30 day supply w/ 2 refills.) for up to 90 days. - lisinopril (ZESTRIL) 20 mg tablet Take 1 tablet by mouth once daily. - atorvastatin (LIPITOR) 20 mg tablet Take 1 tablet by mouth once daily. - amLODIPine (NORVASC) 10 mg tablet Take 1 tablet by mouth once daily. - ibuprofen (MOTRIN) 800 mg tablet Take 1 tablet by mouth three times a day as needed for pain. - gabapentin (NEURONTIN) 300 mg capsule Take 2 capsules by mouth three times daily for 360 days. - ondansetron (ZOFRAN) 8 mg tablet Take 1 tablet by mouth every 8 hours as needed for nausea/vomiting. - clopidogrel (PLAVIX) 75 mg tablet Take 1 tablet by mouth once daily. Post stents. Problem List As Of Date 05/24/2024 Noted Resolved Tobacco use disorder [F17.200] 06/14/2005 Pure hypercholesterolemia [E78.00] 06/21/2005 PERIPH VASCULAR DIS NOS [I73.9] 06/21/2005 Cervicalgia [M54.2] 11/03/2008 BPH with obstruction/lower urinary tract sympto*12/01/2008 09/28/2017 Essential hypertension [I10] 12/01/2008 Chronic bronchitis (HCC) [J42] 01/12/2009 Rheumatoid arthritis (HCC) [M06.9] 03/04/2010 02/28/2017 AAA (abdominal aortic aneurysm) [I71.40] 05/06/2013 History of colon cancer [Z85.038] 07/19/2013 Secondary and unspecified malignant neoplasm of*09/02/2013 09/28/2020 Vitamin D deficiency [E55.9] 03/05/2014 Peripheral polyneuropathy [G62.9] 04/21/2014 Erectile dysfunction [N52.9] 09/25/2014 09/28/2017 BPH without urinary obstruction [N40.0] 08/04/2015 09/28/2017 Bladder mass [N32.89] 08/04/2015 05/25/2016 Abnormal prostate on physical examination [N42.*08/04/2015 05/25/2016 Smoking history [Z87.891] 08/04/2015 09/28/2017 Rheumatoid arthritis involving both hands (HCC)*03/04/2010 05/25/2016 History of bladder cancer [Z85.51] Rheumatoid arthritis with positive rheumatoid f*08/08/2016 02/28/2017 Centrilobular emphysema (HCC) [J43.2] 08/08/2016 09/28/2017 Gastroesophageal reflux disease [K21.9] 08/08/2016 PAD (peripheral artery disease) (HCC) [I73.9] 08/08/2016 09/28/2017 Bladder cancer (HCC) [C67.9] 08/29/2016 09/28/2020 Attention to artificial opening of urinary trac*09/07/2017 09/28/2020 History of total cystectomy [Z90.6] 03/30/2021 Hydronephrosis of right kidney [N13.30] 03/19/2024 Stage 3a chronic kidney disease (HCC) [N18.31] 03/20/2024 S/P laparotomy with lysis of adhesions [Z98.890]05/24/2024 Small bowel obstruction due to adhesions (HCC) *05/24/2024 Anemia [D64.9] 05/24/2024 Encounter Status:Closed by FARA RIOS on 05/24/24 Normal [facility] Comprehensive metabolic 2000 panelOrdered By: Sydni Reed on 05-24-2024 Albumin [Mass/Vol] 3.5 g/dL Low 3.9 - 4.9 g/dL [facility] ALP [Catalytic activity/Vol] 118 U/L High 38 - 113 U/L [facility] ALT [Catalytic activity/Vol] 12 U/L 10 - 54 U/L [facility] Anion gap [Moles/Vol] 11 mmol/L 8 - 15 mmol/L [facility] AST [Catalytic activity/Vol] 13 U/L Low 14 - 40 U/L [facility] Bilirubin [Mass/Vol] 0.3 mg/dL 0.2 - 1 .3 mg/dL [facility] Calcium [Mass/Vol] 8.7 mg/dL 8.5 - 10. 2 mg/dL [facility] Chloride [Moles/Vol] 101 mmol/L 98 - 10 7 mmol/L [facility] CO2 [Moles/Vol] 24 mmol/L 22 - 30 mmol/L [facility] Creatinine [Mass/Vol] 1.85 mg/dL High 0.73 - 1.22 mg/dL [facility] GFR/1.73 sq M.predicted among non-blacks MDRD (S/P/Bld) [Vol rate/Area] 38 mL/min/{1.73_m2} Low - PINF [facility] Comment on above: Estimated Glomerular Filtration Rate (eGFR) is calculated using the 2020 CKD-EPI creatinine equation. This equation utilizes serum creatinine, sex, and age as parameters. The creatinine assay has traceable calibration to isotope dilution-mass spectrometry. Refer to KDIGO guidelines for clinical interpretation. In patients with unstable renal function, e.g. those with acute kidney injury, the eGFR may not accurately reflect actual GFR. Glucose [Mass/Vol] 116 mg/dL High 74 - 99 mg/dL [facility] Comment on above: The [place] Di[employer] Association (ADA) provides guidance for cutoff values for fasting glucose and random glucose. The ADA defines fasting as no caloric intake for at least 8 hours. Fasting plasma glucose results between 100 to 125 mg/dL indicate increased risk for diabetes (prediabetes). Fasting plasma glucose results greater than or equal to 126 mg/dL meet the criteria for diagnosis of diabetes. In the absence of unequivocal hyperglycemia, results should be confirmed by repeat testing. In a patient with classic symptoms of hyperglycemia or hyperglycemic crisis, random plasma glucose results greater than or equal to 200 mg/dL meet the criteria for diagnosis of diabetes. Reference: Standards of Medical Care in Diabetes 2016, [place] [employer]. Diabetes Care. 2016.39(Suppl 1). Interpretation and review of laboratory results Abnormal [facility] Potassium [Moles/Vol] 5.0 mmol/L 3.7 - 5.1 mmol/L [facility] Protein [Mass/Vol] 6.6 g/dL 6.3 - 8.0 g/dL [facility] Sodium [Moles/Vol] 136 mmol/L 136 - 144 mmol/L [facility] Urea nitrogen [Mass/Vol] 24 mg/dL 9 - 24 mg/dL [facility] Comprehensive metabolic 2000 panelon 05-24-2024 Albumin [Mass/Vol] 3.5 g/dL Low 3.9-4.9 [facility] Comment on above: Order Comment: Speci men Type: BLOOD SPECIMENOrdering Facility: [facility] Address: [address] [place], [place] [address] [address] Performed By: #### 5 0190-8, 2276-4 ####[facility] LABCLIA [id number] [place] [address] [place]#### 58505-9 ####[facility] HE[facility] SERVICESWNCLIA [id number] [place] [address] [place] ALP [Catalytic activity/Vol] 118 U/L High 38-113 [facility] Comment on above: Order Comment: Speci men Type: BLOOD SPECIMENOrdering Facility: [facility] Address: [address] [place] [address] Performed By: #### 5 0190-8, 2275-4 ####[facility] LABCLIA [id number] [place] [address] [place]#### 93846-3 ####[facility] [id number] [place] [address] [place] ALT [Catalytic activity/Vol] 12 U/L Normal 10-54 [facility] Comment on above: Order Comment: Speci men Type: BLOOD SPECIMENOrdering Facility: [facility] Address: [address] [place] [address] Performed By: #### 5 0190-8, 2275- ####[facility] LABCLIA [id number] [place] [address] [place]#### 52497-6 ####[facility] S[facility]THSIDENCLIA [id number] [place] [address] [place] Anion gap [Moles/Vol] 11 mmol/L Normal 8-15 [facility] Comment on above: Order Comment: Speci men Type: BLOOD SPECIMENOrdering Facility: [facility] Address: [address] [place] [address] Performed By: #### 5 0190-8, 2275-4 ####[facility] LABCLIA [id number] [place] [address] [place]#### 43571-6 ####[facility] MILLWNCLIA [id number] [place] [address] [place] AST [Catalytic activity/Vol] 13 U/L Low 14-40 [facility] Comment on above: Order Comment: Speci men Type: BLOOD SPECIMENOrdering Facility: [facility] Address: [address] [place] [address] Performed By: #### 5 0190-8, 2275- ####[facility] LABCLIA [id number] [place] [address] [place]#### 79652-1 ####[facility] SERVICESWNCLIA [id number] [place] [address] [place] Bilirubin [Mass/Vol] 0.3 mg/dL Normal 0.2-1.3 [facility] Comment on above: Order Comment: Speci men Type: BLOOD SPECIMENOrdering Facility: [facility] Address: [address] [place] [address] Performed By: #### 5 0190-8, 2276-01 ####[facility] LABCLIA [id number] [place] [address] [place]#### 23366-5 ####[facility] MILLTOWNCLIA [id number] [place] [address] [place] Calcium [Mass/Vol] 8.7 mg/dL Normal 8.5-10.2 [facility] Comment on above: Order Comment: Speci men Type: BLOOD SPECIMENOrdering Facility: [facility] Address: [facility] [place] [address] Performed By: #### 5 0190-8, 2275- ####[facility] LABCLIA [id number] [place] [address] [place]#### 80910-4 ####[facility] MILLTOWNCLIA [id number] [place] [address] [place] Chloride [Moles/Vol] 101 mmol/L Normal 98-107 [facility] Comment on above: Order Comment: Speci men Type: BLOOD SPECIMENOrdering Facility: [facility] Address: [facility] [place] [address] Performed By: #### 5 0190-8, 2275- ####[facility] LABCLIA [id number] [place] [address] [place]#### 84748-9 ####[facility] MILLTOWNCLIA [id number] [place] [address] [place] CO2 [Moles/Vol] 24 mmol/L Normal 22-30 [facility] Comment on above: Order Comment: Speci men Type: BLOOD SPECIMENOrdering Facility: [facility] Address: [address] [place] [address] Performed By: #### 5 0190-8, 2276-01 ####[facility] LABCLIA [id number] [place] [address] [place]#### 96664-8 ####[facility] MILLWNCLIA [id number] [place] [address] [place] Creatinine [Mass/Vol] 1.85 mg/dL High 0.73-1.22 [facility] Comment on above: Order Comment: Speci men Type: BLOOD SPECIMENOrdering Facility: [facility] Address: [address] [place] [address] Performed By: #### 5 0190-8, 2275- ####[facility] LABCLIA [id number] [place] [address] [place]#### 07348-3 ####[facility] [id number] [place] [address] [place] Creatinine and Glomerular filtration rate.predicted panel (S/P/Bld) 38 mL/min/1.73m??? Low >=60 [facility] Comment on above: Order Comment: Nida johnson Type: BLOOD SPECIMENOrdering Facility: [facility] Address: [address] [place] [address] Result Comment: Regina mated Glomerular Filtration Rate (eGFR) is calculated using the 2020 CKD-EPI creatinine equation. This equation utilizes serum creatinine, sex, and age as parameters. The creatinine assay has traceable calibration to isotope dilution-mass spectrometry. Refer to KDIGO guidelines for clinical interpretation. In patients with unstable renal function, e.g. those with acute kidney injury, the eGFR may not accurately reflect actual GFR. Performed By: #### 5 0190-8, 2276-4 ####[facility] LABCLIA [id number] [address] [place]#### 05532-8 ####[facility] [id number] [place] [address] [place] Glucose [Mass/Vol] 116 mg/dL High 74-99 [facility] Comment on above: Order Comment: Nida johnson Type: BLOOD SPECIMENOrdering Facility: [facility] Address: [address] [place] [address] Result Comment: The [place] Diabetes Association (ADA) provides guidance for cutoff values for fasting glucose and random glucose. The ADA defines fasting as no caloric intake for at least 8 hours. Fasting plasma glucose results between 100 to 125 mg/dL indicate increased risk for diabetes (prediabetes). Fasting plasma glucose results greater than or equal to 126 mg/dL meet the criteria for diagnosis of diabetes. In the absence of unequivocal hyperglycemia, results should be confirmed by repeat testing. In a patient with classic symptoms of hyperglycemia or hyperglycemic crisis, random plasma glucose results greater than or equal to 200 mg/dL meet the criteria for diagnosis of diabetes. Reference: Standards of Medical Care in Diabetes 2016, [place] Diabetes Association. Diabetes Care. 2016.39(Suppl 1). Performed By: #### 5 0190-8, 2275- ####[facility] LABCLIA [id number] [place] [address] [place]#### 83963-2 ####[facility] MILLTOWNCLIA [id number] [place] [address] [place] Potassium [Moles/Vol] 5.0 mmol/L Normal 3.7-5.1 [facility] Comment on above: Order Comment: Speci men Type: BLOOD SPECIMENOrdering Facility: [facility] Address: [address] [place] [address] Performed By: #### 5 0190-8, 2276-01 ####[facility] LABCLIA [id number] [place] [address] [place]#### 40878-2 ####[facility] MILLWNCLIA [id number] [place] [address] [place] Protein [Mass/Vol] 6.6 g/dL Normal 6.3-8.0 [facility] Comment on above: Order Comment: Speci men Type: BLOOD SPECIMENOrdering Facility: [facility] Address: [address] [place] [address] Performed By: #### 5 0190-8, 2276-01 ####[facility] LABCLIA [id number] [place] [address] [place]#### 38842-9 ####[facility] MILLTOWNCLIA [id number] [place] [address] [place] Sodium [Moles/Vol] 136 mmol/L Normal 136-144 [facility] Comment on above: Order Comment: Speci men Type: BLOOD SPECIMENOrdering Facility: [facility] Address: [address] [place] [address] Performed By: #### 5 0190-8, 2275- ####[facility] LABCLIA [id number] [place] [address] [place]#### 28454-8 ####[facility] MILLTOWNCLIA [id number] [place] [address] [place] Urea nitrogen [Mass/Vol] 24 mg/dL Normal 9-24 [facility] Comment on above: Order Comment: Speci men Type: BLOOD SPECIMENOrdering Facility: [facility] Address: [address] [place] [address] Performed By: #### 5 0190-8, 2276-01 ####[facility] LABCLIA [id number] [place] [address] [place]#### 41769-8 ####[facility] [id number] [place] [address] [place] FERRITINon 05-24-2024 Ferritin [Mass/Vol] 242.0 ng/mL 30.3 - 565.7 ng/mL [facility] Ferritin SerPl-mCncon 2023 Ferritin [Mass/Vol] 242.0 ng/mL Normal 30.3-565.7 [facility] Comment on above: Order Comment: Speci men Type: BLOOD SPECIMENOrdering Facility: [facility] Address: [address] [place] [address] Performed By: #### 5 0190-8, 2276-01 ####[facility] LABCLIA [id number] [place] [address] [place]#### 36825-3 ####[facility] MILLWNCLIA [id number] [place] [address] [place] Ferritin [Mass/Vol]on 2023 Interpretation and review of laboratory results Normal [facility] Folate SerPl-mCncon 05-24-20 24 Folate [Mass/Vol] ng/mL Normal >4.7 [facility] Comment on above: Order Comment: Speci alex Type: BLOOD SPECIMENOrdering Facility: [facility] Address: [address] [place] [address] Result Comment: A re sult of > 20 ng/mL is not necessarily indicative of a pathologic or treatable condition: it reflects a limitation of the test methodology. Assay reference range: 4.8 to 24.2 ng/mL. Suitable for detection of folate deficiency. Reference: Folate III (Folate III) [package insert V 1.0 Lao]. [facility], [place], [place]: August 2015. Performed By: #### 2 284-8, 2132-9 ####[facility] LABCLIA [id number] [place] [address] [place] Iron and Iron binding capaci ty panelon 05-24-2024 Interpretation and review of laboratory results Abnormal [facility] Iron [Mass/Vol] 28 ug/dL Low 41 - 186 ug/dL [facility] Iron binding capacity [Mass/Vol] 222 ug/dL Low 232 - 386 ug/dL [facility] Iron/TIBC [Molar ratio] 12.6 % Low 15.0 - 57.0 % [facility] Iron [Mass/Vol] 28 ug/dL Low 41-186 [facility] Comment on above: Order Comment: Speci men Type: BLOOD SPECIMENOrdering Facility: [facility] Address: [address] [place] [address] Performed By: #### 5 0190-8, 2276-4 ####[facility] LABCLIA [id number] [place] [address] [place]#### 51352-6 ####[facility] [id number] [place] [address] [place] Iron binding capacity [Mass/Vol] 222 ug/dL Low 232-386 [facility] Comment on above: Order Comment: Speci men Type: BLOOD SPECIMENOrdering Facility: [facility] Address: [address] [place] [address] Performed By: #### 5 0190-8, 2276-4 ####[facility] LABCLIA [id number] [place] [address] [place]#### 91503-6 ####[facility] SERVICESWNCLIA [id number] [place] [address] [place] Iron/TIBC [Molar ratio] 12.6 % Low 15.0-57.0 [facility] Comment on above: Order Comment: Speci men Type: BLOOD SPECIMENOrdering Facility: [facility] Address: [address] [place] [address] Performed By: #### 5 0190-8, 2276-4 ####[facility] LABCLIA [id number] [place] [address] [place]#### 87576-7 ####[facility] SERVICESWNCLIA [id number] [place] [address] [place] Vit B12 SerPl-ncon 024 Cobalamin (Vitamin B12) [Mass/Vol] 501 pg/mL Normal 232-1245 [facility] Comment on above: Order Comment: Speci men Type: BLOOD SPECIMENOrdering Facility: [facility] Address: [address] [place] [address] Performed By: #### 2 284-8, 2132-9 ####[facility] LABCLIA [id number] [place] [address] [place] XR CHEST 2V FRONTAL/LATon XR CHEST 2V FRONTAL/LAT * * *Final Report* * * DATE OF EXAM: May 24 2024 10:19AM WOX 5291 - XR CHEST 2V FRONTAL/LAT / PROCEDURE REASON: Pleural effusion * * * * Physician Interpretation * * * * EXAMINATION: CHEST RADIOGRAPH (2 VIEW FRONTAL and LATERAL) CLINICAL HISTORY: Pleural effusion MQ: XC2_6 EXAM DATE/TIME: 05/24/2024 10:19 AM COMPARISON: Chest x-ray on 04/08/2019 RESULT: Lines, tubes, and devices: None. Lungs and pleura: There is left-sided small pleural effusion, with associated lower lung atelectasis/infiltrates. The right lung is grossly clear. No right-sided pleural effusion. No visible pneumothorax. Cardiomediastinal silhouette: Stable cardiomediastinal silhouette. Bones and soft tissues: There are mild degenerative changes in the spine. IMPRESSION: Left-sided small pleural effusion with associated lower lung atelectasis/pulmonary infiltrates. Supervisor Dry Cleaning: [facility] Transcribe Date/Time: May 24 2024 12:09P Dictated by : SERGE HOLCOMB MD This examination was interpreted and the report reviewed and electronically signed by: SERGE HOLCOMB MD on May 24 2024 12:10PM EST [id number] Normal [facility] XR Chest PA and Lateralon IMPRESSION: Left-sided small pleural effusion with associated lower lung atelectasis/pulmonary infiltrates. Supervisor Dry Cleaning: [facility] Transcribe Date/Time: May 24 2024 12:09P Dictated by : SERGE HOLCOMB MD This examination was interpreted and the report reviewed and electronically signed by: SERGE HOLCOMB MD on May 24 2024 12:10PM EST DIVISION OF RADIOLOGY * * *Final Report* * * DATE OF EXAM: May 24 2024 10:19AM WOX 5291 - XR CHEST 2V FRONTAL/LAT / PROCEDURE REASON: Pleural effusion * * * * Physician Interpretation * * * * EXAMINATION: CHEST RADIOGRAPH (2 VIEW FRONTAL & LATERAL) CLINICAL HISTORY: Pleural effusion MQ: XC2_6 EXAM DATE/TIME: 05/24/2024 10:19 AM COMPARISON: Chest x-ray on 04/08/2019 RESULT: Lines, tubes, and devices: None. Lungs and pleura: There is left-sided small pleural effusion, with associated lower lung atelectasis/infiltrates. The right lung is grossly clear. No right-sided pleural effusion. No visible pneumothorax. Cardiomediastinal silhouette: Stable cardiomediastinal silhouette. Bones and soft tissues: There are mild degenerative changes in the spine. DIVISION OF RADIOLOGY Provider, [place] [facility] [place] - 05/24/2024 * * *Final Report* * * DATE OF EXAM: May 24 2024 10:19AM WOX 5291 - XR CHEST 2V FRONTAL/LAT / PROCEDURE REASON: Pleural effusion * * * * Physician Interpretation * * * * EXAMINATION: CHEST RADIOGRAPH (2 VIEW FRONTAL & LATERAL) CLINICAL HISTORY: Pleural effusion MQ: XC2_6 EXAM DATE/TIME: 05/24/2024 10:19 AM COMPARISON: Chest x-ray on 04/08/2019 RESULT: Lines, tubes, and devices: None. Lungs and pleura: There is left-sided small pleural effusion, with associated lower lung atelectasis/infiltrates. The right lung is grossly clear. No right-sided pleural effusion. No visible pneumothorax. Cardiomediastinal silhouette: Stable cardiomediastinal silhouette. Bones and soft tissues: There are mild degenerative changes in the spine. IMPRESSION IMPRESSION: Left-sided small pleural effusion with associated lower lung atelectasis/pulmonary infiltrates. Supervisor Dry Cleaning: [facility] Transcribe Date/Time: May 24 2024 12:09P Dictated by : SERGE HOLCOMB MD This examination was interpreted and the report reviewed and electronically signed by: SERGE HOLCOMB MD on May 24 2024 12:10PM EST [facility] Radiology Study observation (narrative) [facility] XR Chest PA and LateralOrder ed By: [facility] Provider on 05-24-2024 [facility] Glucose Test strip manual (B ld) [Mass/Vol]on 05-10-2024 Glucose [Mass/Vol] 127 mg/dL High 74 - 99 mg/dL [facility] Interpretation and review of laboratory results Abnormal [facility] Glucose [Mass/Vol] 127 mg/dL High 74-99 [facility] Comment on above: Performed By: #### 3 4532-2 #### SYDNI Espino ([id number]) [facility] ([facility]) [address] [place] [address] Magnesiumon 05-10-2024 Magnesium [Mass/Vol] 2.06 mg/dL 1.60 - 2.40 mg/dL [facility] Magnesium [Mass/Vol] 2.06 mg/dL Normal 1.60-2.40 [facility] Comment on above: Performed By: #### 3 4532-2 #### SYDNI Espino ([id number]) [facility] ([facility]) [address] [place] [address] Magnesium [Mass/Vol]on 05-10 Interpretation and review of laboratory results Normal [facility] No Panel Informationon 05-10 [facility] Renal function 2000 panelon 05-10-2024 Albumin BCP dye [Mass/Vol] 2.6 g/dL Low 3.4 - 5.0 g/dL [facility] Anion gap [Moles/Vol] 10 mmol/L 10 - 20 mmol/L [facility] Calcium [Mass/Vol] 7.5 mg/dL Low 8.6 - 10. 6 mg/dL [facility] Chloride [Moles/Vol] 106 mmol/L 98 - 10 7 mmol/L [facility] CO2 [Moles/Vol] 26 mmol/L 21 - 32 mmol/L [facility] Creatinine [Mass/Vol] 1.53 mg/dL High 0.50 - 1.30 mg/dL [facility] GFR/1.73 sq M.predicted among non-blacks MDRD (S/P/Bld) [Vol rate/Area] 47 mL/min/{1.73_m2} Low - PINF [facility] Glucose [Mass/Vol] 112 mg/dL High 74 - 99 mg/dL [facility] Interpretation and review of laboratory results Abnormal [facility] Phosphate [Mass/Vol] 3.0 mg/dL 2.5 - 4 .9 mg/dL [facility] Potassium [Moles/Vol] 4.2 mmol/L 3.5 - 5.3 mmol/L [facility] Sodium [Moles/Vol] 138 mmol/L 136 - 145 mmol/L [facility] Urea nitrogen [Mass/Vol] 32 mg/dL High 6 - 23 mg/dL [facility] Albumin BCP dye [Mass/Vol] 2.6 g/dL Low 3.4-5.0 [facility] Comment on above: Performed By: #### 3 4532-2 #### SYDNI Espino ([id number]) [facility] ([facility]) [address] [place] [address] Anion gap [Moles/Vol] 10 mmol/L Normal 10-20 [facility] Comment on above: Performed By: #### 3 453-2 #### SYDNI Espino ([id number]) [facility] ([facility]) [address] [place] [address] Calcium [Mass/Vol] 7.5 mg/dL Low 8.6-10.6 [facility] Comment on above: Performed By: #### 3 4532-2 #### SYDNI Espino ([id number]) [facility] ([facility]) [address] [place] [address] Chloride [Moles/Vol] 106 mmol/L Normal 98-107 [facility] Comment on above: Performed By: #### 3 4532-2 #### SYDNI Espino ([id number]) [facility] ([facility]) [address] [place] [address] CO2 [Moles/Vol] 26 mmol/L Normal 21-32 [facility] Comment on above: Performed By: #### 3 4532-2 #### SYDNI Espino ([id number]) [facility] ([facility]) [address] [place] [address] Creatinine [Mass/Vol] 1.53 mg/dL High 0.50-1.30 [facility] Comment on above: Performed By: #### 3 4532-2 #### SYDNI Espino ([id number]) [facility] ([facility]) [address] [place] [address] Glomerular filtration rate/1.73 sq M.predicted 47 mL/min/1.73m*2 Low >60 [facility] Comment on above: Result Comment: Calc ulations of estimated GFR are performed using the 2020 CKD-EPI Study Refit equation without the race variable for the IDMS-Traceable creatinine methods. https://jasn.asnjournals.org/content//ASN.0028144 988 Performed By: #### 3 4532-2 #### SYDNI Espino ([id number]) [facility] ([facility]) [address] [place] [address] Glucose [Mass/Vol] 112 mg/dL High 74-99 [facility] Comment on above: Performed By: #### 3 4531-2 #### SYDNI Espino ([id number]) [facility] ([facility]) [address] [place] [address] Phosphate [Mass/Vol] 3.0 mg/dL Normal 2.5-4.9 [facility] Comment on above: Result Comment: The performance characteristics of phosphorus testing in heparinized plasma have been validated by the individual laboratory site where testing is performed. Testing on heparinized plasma is not approved by the FDA; however, such approval is not necessary. Performed By: #### 3 4532-2 #### SYDNI Espino ([id number]) [facility] ([facility]) [address] [place] [address] Potassium [Moles/Vol] 4.2 mmol/L Normal 3.5-5.3 [facility] Comment on above: Performed By: #### 3 4531-2 #### SYDNI Espino ([id number]) [facility] ([facility]) [address] [place] [address] Sodium [Moles/Vol] 138 mmol/L Normal 136-145 [facility] Comment on above: Performed By: #### 3 453-2 #### SYDNI Espino ([id number]) [facility] ([facility]) [address] [place] [address] Urea nitrogen [Mass/Vol] 32 mg/dL High 6-23 [facility] Comment on above: Performed By: #### 3 4531-2 #### SYDNI Espino ([id number]) [facility] ([facility]) [address] [place] [address] Glucose Test strip manual (B ld) [Mass/Vol]on 05-09-2024 Glucose [Mass/Vol] 126 mg/dL High 74 - 99 mg/dL [facility] Interpretation and review of laboratory results Abnormal [facility] Glucose [Mass/Vol] 126 mg/dL High 74-99 [facility] Comment on above: Performed By: #### 3 4532-2 #### SYDNI Espino ([id number]) [facility] ([facility]) [address] [place] [address] Glucose [Mass/Vol] 107 mg/dL High 74 - 99 mg/dL [facility] Interpretation and review of laboratory results Abnormal [facility] Glucose [Mass/Vol] 107 mg/dL High 74-99 [facility] Comment on above: Performed By: #### 3 4532-2 #### SYDNI Espino ([id number]) [facility] ([facility]) [address] [place] [address] Glucose [Mass/Vol] 92 mg/dL 74 - 99 mg/dL [facility] Interpretation and review of laboratory results Normal [facility] Glucose [Mass/Vol] 92 mg/dL Normal 74-99 [facility] Comment on above: Performed By: #### 3 4532-2 #### SYDNI Espino ([id number]) [facility] ([facility]) [address] [place] [address] Magnesiumon 05-09-2024 Magnesium [Mass/Vol] 2.12 mg/dL 1.60 - 2.40 mg/dL [facility] Magnesium [Mass/Vol] 2.12 mg/dL Normal 1.60-2.40 [facility] Comment on above: Performed By: #### 3 4532-2 #### SYDNI Espino ([id number]) [facility] ([facility]) [address] [place] [address] Magnesium [Mass/Vol]on 05-09 Interpretation and review of laboratory results Normal [facility] Renal function 2000 panelon 05-09-2024 Albumin BCP dye [Mass/Vol] 2.5 g/dL Low 3.4 - 5.0 g/dL [facility] Anion gap [Moles/Vol] 12 mmol/L 10 - 20 mmol/L [facility] Calcium [Mass/Vol] 7.3 mg/dL Low 8.6 - 10. 6 mg/dL [facility] Chloride [Moles/Vol] 107 mmol/L 98 - 10 7 mmol/L [facility] CO2 [Moles/Vol] 24 mmol/L 21 - 32 mmol/L [facility] Creatinine [Mass/Vol] 1.42 mg/dL High 0.50 - 1.30 mg/dL [facility] GFR/1.73 sq M.predicted among non-blacks MDRD (S/P/Bld) [Vol rate/Area] 52 mL/min/{1.73_m2} Low - PINF [facility] Glucose [Mass/Vol] 106 mg/dL High 74 - 99 mg/dL [facility] Interpretation and review of laboratory results Abnormal [facility] Phosphate [Mass/Vol] 3.7 mg/dL 2.5 - 4 .9 mg/dL [facility] Potassium [Moles/Vol] 4.8 mmol/L 3.5 - 5.3 mmol/L [facility] Sodium [Moles/Vol] 138 mmol/L 136 - 145 mmol/L [facility] Urea nitrogen [Mass/Vol] 38 mg/dL High 6 - 23 mg/dL [facility] Albumin BCP dye [Mass/Vol] 2.5 g/dL Low 3.4-5.0 [facility] Comment on above: Performed By: #### 3 4532-2 #### SYDNI Espino ([id number]) [facility] ([facility]) [address] [place] [address] Anion gap [Moles/Vol] 12 mmol/L Normal 10-20 [facility] Comment on above: Performed By: #### 3 2672-2 #### SYDNI Espino ([id number]) [facility] ([facility]) [address] [place] [address] Calcium [Mass/Vol] 7.3 mg/dL Low 8.6-10.6 [facility] Comment on above: Performed By: #### 3 4532-2 #### SYDNI Espino ([id number]) [facility] ([facility]) [address] [place] [address] Chloride [Moles/Vol] 107 mmol/L Normal 98-107 [facility] Comment on above: Performed By: #### 3 4532-2 #### SYDNI Espino ([id number]) [facility] ([facility]) [address] [place] [address] CO2 [Moles/Vol] 24 mmol/L Normal 21-32 [facility] Comment on above: Performed By: #### 3 4532-2 #### SYDNI QUINN L ([id number]) [facility] ([facility]) [address] [place] [address] Creatinine [Mass/Vol] 1.42 mg/dL High 0.50-1.30 [facility] Comment on above: Performed By: #### 3 4532-2 #### SYDNI QUINN L ([id number]) [facility] ([facility]) [address] [place] [address] Glomerular filtration rate/1.73 sq M.predicted 52 mL/min/1.73m*2 Low >60 [facility] Comment on above: Result Comment: Calc ulations of estimated GFR are performed using the 2020 CKD-EPI Study Refit equation without the race variable for the IDMS-Traceable creatinine methods. https://jasn.asnjournals.org/content/early/ASN.7022856 988 Performed By: #### 3 4532-2 #### SYDNI Espino ([id number]) [facility] ([facility]) [address] [place] [address] Glucose [Mass/Vol] 106 mg/dL High 74-99 [facility] Comment on above: Performed By: #### 3 4532-2 #### SYDNI Espino ([id number]) [facility] ([facility]) [address] [place] [address] Phosphate [Mass/Vol] 3.7 mg/dL Normal 2.5-4.9 [facility] Comment on above: Result Comment: The performance characteristics of phosphorus testing in heparinized plasma have been validated by the individual laboratory site where testing is performed. Testing on heparinized plasma is not approved by the FDA; however, such approval is not necessary. Performed By: #### 3 4532-2 #### SYDNI Espino ([id number]) [facility] ([facility]) [address] [place] [address] Potassium [Moles/Vol] 4.8 mmol/L Normal 3.5-5.3 [facility] Comment on above: Performed By: #### 3 4532-2 #### SYDNI Espino ([id number]) [facility] ([facility]) [address] [place] [address] Sodium [Moles/Vol] 138 mmol/L Normal 136-145 [facility] Comment on above: Performed By: #### 3 4532-2 #### SYDNI Espino ([id number]) [facility] ([facility]) [address] [place] [address] Urea nitrogen [Mass/Vol] 38 mg/dL High 6-23 [facility] Comment on above: Performed By: #### 3 4532-2 #### SYDNI Espino ([id number]) [facility] ([facility]) [address] [place] [address] Glucose Test strip manual (B ld) [Mass/Vol]on 05-08-2024 Glucose [Mass/Vol] 120 mg/dL High 74 - 99 mg/dL [facility] Interpretation and review of laboratory results Abnormal [facility] Glucose [Mass/Vol] 120 mg/dL High 74-99 [facility] Comment on above: Performed By: #### 3 4532-2 #### SYDNI Espino ([id number]) [facility] ([facility]) [address] [place] [address] Glucose [Mass/Vol] 98 mg/dL 74 - 99 mg/dL [facility] Interpretation and review of laboratory results Normal [facility] Glucose [Mass/Vol] 98 mg/dL Normal 74-99 [facility] Comment on above: Performed By: #### 3 4532-2 #### SYDNI Espino ([id number]) [facility] ([facility]) [address] [place] [address] CBC panel Auto (Bld)on 05-07 Erythrocyte distribution width (RBC) [Ratio] 15.9 % High 11.5 - 14.5 % [facility] Hematocrit (Bld) [Volume fraction] 25.2 % Low 41.0 - 52.0 % [facility] Hemoglobin (Bld) [Mass/Vol] 7.6 g/dL Low 13.5 - 17.5 g/dL [facility] Interpretation and review of laboratory results Abnormal [facility] MCH (RBC) [Entitic mass] 29.3 pg 26.0 - 34.0 pg [facility] MCHC (RBC) [Mass/Vol] 30.2 g/dL Low 32.0 - 36.0 g/dL [facility] MCV (RBC) [Entitic vol] 97 fL 80 - 100 fL [facility] Nucleated RBC/100 WBC (Bld) [Ratio] 0.0 % [facility] Platelets (Bld) [#/Vol] 285 10*3/uL [facility] RBC (Bld) [#/Vol] 2.59 10*6/uL Low [facility] WBC (Bld) [#/Vol] 7.1 10*3/uL [facility] Erythrocyte distribution width (RBC) [Ratio] 15.9 % High 11.5-14.5 [facility] Comment on above: Performed By: #### 3 4531-2 #### SYDNI Espino ([id number]) [facility] ([facility]) [address] [place] [address] Hematocrit (Bld) [Volume fraction] 25.2 % Low 41.0-52.0 [facility] Comment on above: Performed By: #### 3 4531-2 #### SYDNI Espino ([id number]) [facility] ([facility]) [address] [place] [address] Hemoglobin (Bld) [Mass/Vol] 7.6 g/dL Low 13.5-17.5 [facility] Comment on above: Performed By: #### 3 4531-2 #### SYDNI Espino ([id number]) [facility] ([facility]) [address] [place] [address] MCH (RBC) [Entitic mass] 29.3 pg Normal 26.0-34.0 [facility] Comment on above: Performed By: #### 3 4531-2 #### SYDNI Espino ([id number]) [facility] ([facility]) [address] [place] [address] MCHC (RBC) [Mass/Vol] 30.2 g/dL Low 32.0-36.0 [facility] Comment on above: Performed By: #### 3 4531-2 #### SYDNI Espino ([id number]) [facility] ([facility]) [address] [place] [address] MCV (RBC) [Entitic vol] 97 fL Normal 80-100 [facility] Comment on above: Performed By: #### 3 4531-2 #### SYDNI Espino ([id number]) [facility] ([facility]) [address] [place] [address] Nucleated RBC/100 WBC (Bld) [Ratio] 0.0 /100 WBCs Normal 0.0-0.0 [facility] Comment on above: Performed By: #### 3 4531-2 #### SYDNI Espino ([id number]) [facility] ([facility]) [address] [place] [address] Platelets (Bld) [#/Vol] 285 x10*3/uL Normal 150-450 [facility] Comment on above: Performed By: #### 3 4531-2 #### SYDNI Espino ([id number]) [facility] ([facility]) [address] [place] [address] RBC (Bld) [#/Vol] 2.59 x10*6/uL Low 4.50-5.90 [facility] Comment on above: Performed By: #### 3 4531-2 #### SYDNI Espino ([id number]) [facility] ([facility]) [address] [place] [address] WBC (Bld) [#/Vol] 7.1 x10*3/uL Normal 4.4-11.3 [facility] Comment on above: Performed By: #### 3 4531-2 #### SYDNI Espino ([id number]) [facility] ([facility]) [address] [place] [address] Glucose Test strip manual (B ld) [Mass/Vol]on 05-07-2024 Glucose [Mass/Vol] 110 mg/dL High 74 - 99 mg/dL [facility] Interpretation and review of laboratory results Abnormal [facility] Glucose [Mass/Vol] 110 mg/dL High 74-99 [facility] Comment on above: Performed By: #### 3 4531-2 #### SYDNI Espino ([id number]) [facility] ([facility]) [address] [place] [address] Glucose [Mass/Vol] 112 mg/dL High 74 - 99 mg/dL [facility] Interpretation and review of laboratory results Abnormal [facility] Glucose [Mass/Vol] 112 mg/dL High 74-99 [facility] Comment on above: Performed By: #### 3 4531-2 #### SYDNI Espino ([id number]) [facility] ([facility]) [address] [place] [address] Glucose [Mass/Vol] 107 mg/dL High 74 - 99 mg/dL [facility] Interpretation and review of laboratory results Abnormal [facility] Glucose [Mass/Vol] 107 mg/dL High 74-99 [facility] Comment on above: Performed By: #### 3 4532-2 #### SYDNI Espino ([id number]) [facility] ([facility]) [address] [place] [address] Glucose [Mass/Vol] 139 mg/dL High 74 - 99 mg/dL [facility] Interpretation and review of laboratory results Abnormal [facility] Glucose [Mass/Vol] 139 mg/dL High 74-99 [facility] Comment on above: Performed By: #### 3 4532-2 #### SYDNI Espino ([id number]) [facility] ([facility]) [address] [place] [address] Glucose [Mass/Vol] 104 mg/dL High 74 - 99 mg/dL [facility] Interpretation and review of laboratory results Abnormal [facility] Glucose [Mass/Vol] 104 mg/dL High 74-99 [facility] Comment on above: Performed By: #### 3 4532-2 #### SYDNI Espino ([id number]) [facility] ([facility]) [address] [place] [address] Magnesiumon 05-07-2024 Magnesium [Mass/Vol] 2.11 mg/dL 1.60 - 2.40 mg/dL [facility] Magnesium [Mass/Vol] 2.11 mg/dL Normal 1.60-2.40 [facility] Comment on above: Performed By: #### 3 4532-2 #### SYDNI Espino ([id number]) [facility] ([facility]) [address] [place] [address] Magnesium [Mass/Vol]on 05-07 Interpretation and review of laboratory results Normal [facility] No Panel Informationon 05-07 [facility] Renal function 2000 panelon 05-07-2024 Albumin BCP dye [Mass/Vol] 2.7 g/dL Low 3.4 - 5.0 g/dL [facility] Anion gap [Moles/Vol] 10 mmol/L 10 - 20 mmol/L [facility] Calcium [Mass/Vol] 7.6 mg/dL Low 8.6 - 10. 6 mg/dL [facility] Chloride [Moles/Vol] 109 mmol/L High 98 - 10 7 mmol/L [facility] CO2 [Moles/Vol] 27 mmol/L 21 - 32 mmol/L [facility] Creatinine [Mass/Vol] 1.35 mg/dL High 0.50 - 1.30 mg/dL [facility] GFR/1.73 sq M.predicted among non-blacks MDRD (S/P/Bld) [Vol rate/Area] 55 mL/min/{1.73_m2} Low - PINF [facility] Glucose [Mass/Vol] 104 mg/dL High 74 - 99 mg/dL [facility] Interpretation and review of laboratory results Abnormal [facility] Phosphate [Mass/Vol] 3.7 mg/dL 2.5 - 4 .9 mg/dL [facility] Potassium [Moles/Vol] 4.2 mmol/L 3.5 - 5.3 mmol/L [facility] Sodium [Moles/Vol] 142 mmol/L 136 - 145 mmol/L [facility] Urea nitrogen [Mass/Vol] 43 mg/dL High 6 - 23 mg/dL [facility] Albumin BCP dye [Mass/Vol] 2.7 g/dL Low 3.4-5.0 [facility] Comment on above: Performed By: #### 3 4532-2 #### SYDNI Espino ([id number]) [facility] ([facility]) [address] [place] [address] Anion gap [Moles/Vol] 10 mmol/L Normal 10-20 [facility] Comment on above: Performed By: #### 3 4532-2 #### SYDNI Espino ([id number]) [facility] ([facility]) [address] [place] [address] Calcium [Mass/Vol] 7.6 mg/dL Low 8.6-10.6 [facility] Comment on above: Performed By: #### 3 4532-2 #### SYDNI Espino ([id number]) [facility] ([facility]) [address] [place] [address] Chloride [Moles/Vol] 109 mmol/L High 98-107 [facility] Comment on above: Performed By: #### 3 4532-2 #### SYDNI Espino ([id number]) [facility] ([facility]) [address] [place] [address] CO2 [Moles/Vol] 27 mmol/L Normal 21-32 [facility] Comment on above: Performed By: #### 3 4532-2 #### SYDNI Espino ([id number]) [facility] ([facility]) [address] [place] [address] Creatinine [Mass/Vol] 1.35 mg/dL High 0.50-1.30 [facility] Comment on above: Performed By: #### 3 4532-2 #### SYDNI Espino ([id number]) [facility] ([facility]) [address] [place] [address] Glomerular filtration rate/1.73 sq M.predicted 55 mL/min/1.73m*2 Low >60 [facility] Comment on above: Result Comment: Calc ulations of estimated GFR are performed using the 2020 CKD-EPI Study Refit equation without the race variable for the IDMS-Traceable creatinine methods. https://jasn.asnjournals.org/content/early//ASN.8379915 988 Performed By: #### 3 4532-2 #### SYDNI Espino ([id number]) [facility] ([facility]) [address] [place] [address] Glucose [Mass/Vol] 104 mg/dL High 74-99 [facility] Comment on above: Performed By: #### 3 4532-2 #### SYDNI Espino ([id number]) [facility] ([facility]) [address] [place] [address] Phosphate [Mass/Vol] 3.7 mg/dL Normal 2.5-4.9 [facility] Comment on above: Result Comment: The performance characteristics of phosphorus testing in heparinized plasma have been validated by the individual laboratory site where testing is performed. Testing on heparinized plasma is not approved by the FDA; however, such approval is not necessary. Performed By: #### 3 4532-2 #### SYDNI Espino ([id number]) [facility] ([facility]) [address] [place] [address] Potassium [Moles/Vol] 4.2 mmol/L Normal 3.5-5.3 [facility] Comment on above: Performed By: #### 3 4532-2 #### SYDNI Espino ([id number]) [facility] ([facility]) [address] [place] [address] Sodium [Moles/Vol] 142 mmol/L Normal 136-145 [facility] Comment on above: Performed By: #### 3 4532-2 #### SYDNI Espino ([id number]) [facility] ([facility]) [address] [place] [address] Urea nitrogen [Mass/Vol] 43 mg/dL High 6-23 [facility] Comment on above: Performed By: #### 3 4532-2 #### SYDNI Espino ([id number]) [facility] ([facility]) [address] [place] [address] CBC panel Auto (Bld)on 05-06 Erythrocyte distribution width (RBC) [Ratio] 15.8 % High 11.5 - 14.5 % [facility] Hematocrit (Bld) [Volume fraction] 25.7 % Low 41.0 - 52.0 % [facility] Hemoglobin (Bld) [Mass/Vol] 7.7 g/dL Low 13.5 - 17.5 g/dL [facility] Interpretation and review of laboratory results Abnormal [facility] MCH (RBC) [Entitic mass] 28.8 pg 26.0 - 34.0 pg [facility] MCHC (RBC) [Mass/Vol] 30.0 g/dL Low 32.0 - 36.0 g/dL [facility] MCV (RBC) [Entitic vol] 96 fL 80 - 100 fL [facility] Nucleated RBC/100 WBC (Bld) [Ratio] 0.0 % [facility] Platelets (Bld) [#/Vol] 288 10*3/uL [facility] RBC (Bld) [#/Vol] 2.67 10*6/uL Low [facility] WBC (Bld) [#/Vol] 7.4 10*3/uL [facility] Erythrocyte distribution width (RBC) [Ratio] 15.8 % High 11.5-14.5 [facility] Comment on above: Performed By: #### 3 4532-2 #### SYDNI Espino ([id number]) [facility] ([facility]) [address] [place] [address] Hematocrit (Bld) [Volume fraction] 25.7 % Low 41.0-52.0 [facility] Comment on above: Performed By: #### 3 4532-2 #### SYDNI Espino ([id number]) [facility] ([facility]) [address] [place] [address] Hemoglobin (Bld) [Mass/Vol] 7.7 g/dL Low 13.5-17.5 [facility] Comment on above: Performed By: #### 3 4532-2 #### SYDNI Espino ([id number]) [facility] ([facility]) [address] [place] [address] MCH (RBC) [Entitic mass] 28.8 pg Normal 26.0-34.0 [facility] Comment on above: Performed By: #### 3 4531-2 #### SYDNI Espino ([id number]) [facility] ([facility]) [address] [place] [address] MCHC (RBC) [Mass/Vol] 30.0 g/dL Low 32.0-36.0 [facility] Comment on above: Performed By: #### 3 453-2 #### SYDNI Espino ([id number]) [facility] ([facility]) [address] [place] [address] MCV (RBC) [Entitic vol] 96 fL Normal 80-100 [facility] Comment on above: Performed By: #### 3 4531-2 #### SYDNI Espino ([id number]) [facility] ([facility]) [address] [place] [address] Nucleated RBC/100 WBC (Bld) [Ratio] 0.0 /100 WBCs Normal 0.0-0.0 [facility] Comment on above: Performed By: #### 3 4531-2 #### SYDNI Espino ([id number]) [facility] ([facility]) [address] [place] [address] Platelets (Bld) [#/Vol] 288 x10*3/uL Normal 150-450 [facility] Comment on above: Performed By: #### 3 4531-2 #### SYDNI Espino ([id number]) [facility] ([facility]) [address] [place] [address] RBC (Bld) [#/Vol] 2.67 x10*6/uL Low 4.50-5.90 [facility] Comment on above: Performed By: #### 3 4531-2 #### SYDNI Espino ([id number]) [facility] ([facility]) [address] [place] [address] WBC (Bld) [#/Vol] 7.4 x10*3/uL Normal 4.4-11.3 [facility] Comment on above: Performed By: #### 3 4531-2 #### SYDNI Espino ([id number]) [facility] ([facility]) [address] [place] [address] Glucose Test strip manual (B ld) [Mass/Vol]on 05-06-2024 Glucose [Mass/Vol] 119 mg/dL High 74 - 99 mg/dL [facility] Interpretation and review of laboratory results Abnormal [facility] Glucose [Mass/Vol] 119 mg/dL High 74-99 [facility] Comment on above: Performed By: #### 3 4532-2 #### SYDNI Espino ([id number]) [facility] ([facility]) [address] [place] [address] Glucose [Mass/Vol] 139 mg/dL High 74 - 99 mg/dL [facility] Interpretation and review of laboratory results Abnormal [facility] Glucose [Mass/Vol] 139 mg/dL High 74-99 [facility] Comment on above: Performed By: #### 3 4532-2 #### SYDNI Espino ([id number]) [facility] ([facility]) [address] [place] [address] Glucose [Mass/Vol] 130 mg/dL High 74 - 99 mg/dL [facility] Interpretation and review of laboratory results Abnormal [facility] Glucose [Mass/Vol] 130 mg/dL High 74-99 [facility] Comment on above: Performed By: #### 3 4532-2 #### SYDNI Espino ([id number]) [facility] ([facility]) [address] [place] [address] Glucose [Mass/Vol] 134 mg/dL High 74 - 99 mg/dL [facility] Interpretation and review of laboratory results Abnormal [facility] Glucose [Mass/Vol] 134 mg/dL High 74-99 [facility] Comment on above: Performed By: #### 3 4532-2 #### SYDNI Espino ([id number]) [facility] ([facility]) [address] [place] [address] Magnesiumon 05-06-2024 Magnesium [Mass/Vol] 2.19 mg/dL 1.60 - 2.40 mg/dL [facility] Magnesium [Mass/Vol] 2.19 mg/dL Normal 1.60-2.40 [facility] Comment on above: Performed By: #### 3 4532-2 #### SYDNI Espino ([id number]) [facility] ([facility]) [address] [place] [address] Magnesium [Mass/Vol]on 05-06 Interpretation and review of laboratory results Normal [facility] No Panel Informationon 05-06 [facility] Renal function 2000 panelon 05-06-2024 Albumin BCP dye [Mass/Vol] 2.5 g/dL Low 3.4 - 5.0 g/dL [facility] Anion gap [Moles/Vol] 12 mmol/L 10 - 20 mmol/L [facility] Calcium [Mass/Vol] 7.6 mg/dL Low 8.6 - 10. 6 mg/dL [facility] Chloride [Moles/Vol] 108 mmol/L High 98 - 10 7 mmol/L [facility] CO2 [Moles/Vol] 27 mmol/L 21 - 32 mmol/L [facility] Creatinine [Mass/Vol] 1.44 mg/dL High 0.50 - 1.30 mg/dL [facility] GFR/1.73 sq M.predicted among non-blacks MDRD (S/P/Bld) [Vol rate/Area] 51 mL/min/{1.73_m2} Low - PINF [facility] Glucose [Mass/Vol] 126 mg/dL High 74 - 99 mg/dL [facility] Interpretation and review of laboratory results Abnormal [facility] Phosphate [Mass/Vol] 4.2 mg/dL 2.5 - 4 .9 mg/dL [facility] Potassium [Moles/Vol] 4.0 mmol/L 3.5 - 5.3 mmol/L [facility] Sodium [Moles/Vol] 143 mmol/L 136 - 145 mmol/L [facility] Urea nitrogen [Mass/Vol] 45 mg/dL High 6 - 23 mg/dL [facility] Albumin BCP dye [Mass/Vol] 2.5 g/dL Low 3.4-5.0 [facility] Comment on above: Performed By: #### 3 4532-2 #### SYDNI Espino ([id number]) [facility] ([facility]) [address] [place] [address] Anion gap [Moles/Vol] 12 mmol/L Normal 10-20 [facility] Comment on above: Performed By: #### 3 4531-2 #### SYDNI Espino ([id number]) [facility] ([facility]) [address] [place] [address] Calcium [Mass/Vol] 7.6 mg/dL Low 8.6-10.6 [facility] Comment on above: Performed By: #### 3 4532-2 #### SYDNI Espino ([id number]) [facility] ([facility]) [address] [place] [address] Chloride [Moles/Vol] 108 mmol/L High 98-107 [facility] Comment on above: Performed By: #### 3 4532-2 #### SYDNI Espino ([id number]) [facility] ([facility]) [address] [place] [address] CO2 [Moles/Vol] 27 mmol/L Normal 21-32 [facility] Comment on above: Performed By: #### 3 4532-2 #### SYDNI Espino ([id number]) [facility] ([facility]) [address] [place] [address] Creatinine [Mass/Vol] 1.44 mg/dL High 0.50-1.30 [facility] Comment on above: Performed By: #### 3 4532-2 #### SYDNI Espino ([id number]) [facility] ([facility]) [address] [place] [address] Glomerular filtration rate/1.73 sq M.predicted 51 mL/min/1.73m*2 Low >60 [facility] Comment on above: Result Comment: Calc ulations of estimated GFR are performed using the 2020 CKD-EPI Study Refit equation without the race variable for the IDMS-Traceable creatinine methods. https://jasn.asnjournals.org/content//ASN.0450925 988 Performed By: #### 3 4532-2 #### SYDNI Espino ([id number]) [facility] ([facility]) [address] [place] [address] Glucose [Mass/Vol] 126 mg/dL High 74-99 [facility] Comment on above: Performed By: #### 3 4532-2 #### SYDNI Espino ([id number]) [facility] ([facility]) [address] [place] [address] Phosphate [Mass/Vol] 4.2 mg/dL Normal 2.5-4.9 [facility] Comment on above: Result Comment: The performance characteristics of phosphorus testing in heparinized plasma have been validated by the individual laboratory site where testing is performed. Testing on heparinized plasma is not approved by the FDA; however, such approval is not necessary. Performed By: #### 3 4532-2 #### SYDNI Espino ([id number]) [facility] ([facility]) [address] [place] [address] Potassium [Moles/Vol] 4.0 mmol/L Normal 3.5-5.3 [facility] Comment on above: Performed By: #### 3 4532-2 #### SYDNI Espino ([id number]) [facility] ([facility]) [address] [place] [address] Sodium [Moles/Vol] 143 mmol/L Normal 136-145 [facility] Comment on above: Performed By: #### 3 4532-2 #### SYDNI Espino ([id number]) [facility] ([facility]) [address] [place] [address] Urea nitrogen [Mass/Vol] 45 mg/dL High 6-23 [facility] Comment on above: Performed By: #### 3 4532-2 #### SYDNI Espino ([id number]) [facility] ([facility]) [address] [place] [address] CBC panel Auto (Bld)on 05-05 Erythrocyte distribution width (RBC) [Ratio] 15.3 % High 11.5 - 14.5 % [facility] Hematocrit (Bld) [Volume fraction] 25.6 % Low 41.0 - 52.0 % [facility] Hemoglobin (Bld) [Mass/Vol] 8.0 g/dL Low 13.5 - 17.5 g/dL [facility] Interpretation and review of laboratory results Abnormal [facility] MCH (RBC) [Entitic mass] 29.5 pg 26.0 - 34.0 pg [facility] MCHC (RBC) [Mass/Vol] 31.3 g/dL Low 32.0 - 36.0 g/dL [facility] MCV (RBC) [Entitic vol] 95 fL 80 - 100 fL [facility] Nucleated RBC/100 WBC (Bld) [Ratio] 0.0 % [facility] Platelets (Bld) [#/Vol] 302 10*3/uL [facility] RBC (Bld) [#/Vol] 2.71 10*6/uL Low [facility] WBC (Bld) [#/Vol] 8.7 10*3/uL [facility] Erythrocyte distribution width (RBC) [Ratio] 15.3 % High 11.5-14.5 [facility] Comment on above: Performed By: #### 3 4532-2 #### SYDNI Espino ([id number]) [facility] ([facility]) [address] [place] [address] Hematocrit (Bld) [Volume fraction] 25.6 % Low 41.0-52.0 [facility] Comment on above: Performed By: #### 3 4532-2 #### SYDNI Espino ([id number]) [facility] ([facility]) [address] [place] [address] Hemoglobin (Bld) [Mass/Vol] 8.0 g/dL Low 13.5-17.5 [facility] Comment on above: Performed By: #### 3 4531-2 #### SYDNI Espino ([id number]) [facility] ([facility]) [address] [place] [address] MCH (RBC) [Entitic mass] 29.5 pg Normal 26.0-34.0 [facility] Comment on above: Performed By: #### 3 4531-2 #### SYDNI Espino ([id number]) [facility] ([facility]) [address] [place] [address] MCHC (RBC) [Mass/Vol] 31.3 g/dL Low 32.0-36.0 [facility] Comment on above: Performed By: #### 3 4531-2 #### SYDNI Espino ([id number]) [facility] ([facility]) [address] [place] [address] MCV (RBC) [Entitic vol] 95 fL Normal 80-100 [facility] Comment on above: Performed By: #### 3 4531-2 #### SYDNI Espino ([id number]) [facility] ([facility]) [address] [place] [address] Nucleated RBC/100 WBC (Bld) [Ratio] 0.0 /100 WBCs Normal 0.0-0.0 [facility] Comment on above: Performed By: #### 3 4531-2 #### SYDNI Espino ([id number]) [facility] ([facility]) [address] [place] [address] Platelets (Bld) [#/Vol] 302 x10*3/uL Normal 150-450 [facility] Comment on above: Performed By: #### 3 4531-2 #### SYDNI Espino ([id number]) [facility] ([facility]) [address] [place] [address] RBC (Bld) [#/Vol] 2.71 x10*6/uL Low 4.50-5.90 [facility] Comment on above: Performed By: #### 3 453-2 #### SYDNI Espino ([id number]) [facility] ([facility]) [address] [place] [address] WBC (Bld) [#/Vol] 8.7 x10*3/uL Normal 4.4-11.3 [facility] Comment on above: Performed By: #### 3 4531-2 #### SYDNI Espino ([id number]) [facility] ([facility]) [address] [place] [address] Glucose Test strip manual (B ld) [Mass/Vol]on 05-05-2024 Glucose [Mass/Vol] 126 mg/dL High 74 - 99 mg/dL [facility] Interpretation and review of laboratory results Abnormal [facility] Glucose [Mass/Vol] 126 mg/dL High 74-99 [facility] Comment on above: Performed By: #### 3 4531-2 #### SYDNI Espino ([id number]) [facility] ([facility]) [address] [place] [address] Glucose [Mass/Vol] 154 mg/dL High 74 - 99 mg/dL [facility] Interpretation and review of laboratory results Abnormal [facility] Glucose [Mass/Vol] 154 mg/dL High 74-99 [facility] Comment on above: Performed By: #### 3 4531-2 #### SYDNI Espino ([id number]) [facility] ([facility]) [address] [place] [address] Glucose [Mass/Vol] 107 mg/dL High 74 - 99 mg/dL [facility] Interpretation and review of laboratory results Abnormal [facility] Glucose [Mass/Vol] 107 mg/dL High 74-99 [facility] Comment on above: Performed By: #### 3 453-2 #### SYDNI Espino ([id number]) [facility] ([facility]) [address] [place] [address] Magnesiumon 05-05-2024 Magnesium [Mass/Vol] 2.09 mg/dL 1.60 - 2.40 mg/dL [facility] Magnesium [Mass/Vol] 2.09 mg/dL Normal 1.60-2.40 [facility] Comment on above: Performed By: #### 3 4532-2 #### SYDNI Espino ([id number]) [facility] ([facility]) [address] [place] [address] Magnesium [Mass/Vol]on 05-05 Interpretation and review of laboratory results Normal [facility] No Panel Informationon 05-05 [facility] Renal function 2000 panelon 05-05-2024 Albumin BCP dye [Mass/Vol] 2.6 g/dL Low 3.4 - 5.0 g/dL [facility] Anion gap [Moles/Vol] 12 mmol/L 10 - 20 mmol/L [facility] Calcium [Mass/Vol] 7.7 mg/dL Low 8.6 - 10. 6 mg/dL [facility] Chloride [Moles/Vol] 108 mmol/L High 98 - 10 7 mmol/L [facility] CO2 [Moles/Vol] 27 mmol/L 21 - 32 mmol/L [facility] Creatinine [Mass/Vol] 1.25 mg/dL 0.50 - 1.30 mg/dL [facility] GFR/1.73 sq M.predicted among non-blacks MDRD (S/P/Bld) [Vol rate/Area] 60 mL/min/{1.73_m2} Low - PINF [facility] Glucose [Mass/Vol] 98 mg/dL 74 - 99 mg/dL [facility] Interpretation and review of laboratory results Abnormal [facility] Phosphate [Mass/Vol] 3.4 mg/dL 2.5 - 4 .9 mg/dL [facility] Potassium [Moles/Vol] 4.3 mmol/L 3.5 - 5.3 mmol/L [facility] Sodium [Moles/Vol] 143 mmol/L 136 - 145 mmol/L [facility] Urea nitrogen [Mass/Vol] 41 mg/dL High 6 - 23 mg/dL [facility] Albumin BCP dye [Mass/Vol] 2.6 g/dL Low 3.4-5.0 [facility] Comment on above: Performed By: #### 3 2-2 #### SYDNI Espino ([id number]) [facility] ([facility]) [address] [place] [address] Anion gap [Moles/Vol] 12 mmol/L Normal 10-20 [facility] Comment on above: Performed By: #### 3 4531-2 #### SYDNI Espino ([id number]) [facility] ([facility]) [address] [place] [address] Calcium [Mass/Vol] 7.7 mg/dL Low 8.6-10.6 [facility] Comment on above: Performed By: #### 3 4531-2 #### SYDNI Espino ([id number]) [facility] ([facility]) [address] [place] [address] Chloride [Moles/Vol] 108 mmol/L High 98-107 [facility] Comment on above: Performed By: #### 3 4531-2 #### SYDNI Espino ([id number]) [facility] ([facility]) [address] [place] [address] CO2 [Moles/Vol] 27 mmol/L Normal 21-32 [facility] Comment on above: Performed By: #### 3 4531-2 #### SYDNI Espino ([id number]) [facility] ([facility]) [address] [place] [address] Creatinine [Mass/Vol] 1.25 mg/dL Normal 0.50-1.30 [facility] Comment on above: Performed By: #### 3 4531-2 #### SYDNI Espino ([id number]) [facility] ([facility]) [address] [place] [address] Glomerular filtration rate/1.73 sq M.predicted 60 mL/min/1.73m*2 Low >60 [facility] Comment on above: Result Comment: Calc ulations of estimated GFR are performed using the 2020 CKD-EPI Study Refit equation without the race variable for the IDMS-Traceable creatinine methods. https://jasn.asnjournals.org/content//ASN.5267194 988 Performed By: #### 3 4532-2 #### SYDNI Espino ([id number]) [facility] ([facility]) [address] [place] [address] Glucose [Mass/Vol] 98 mg/dL Normal 74-99 [facility] Comment on above: Performed By: #### 3 4532-2 #### SYDNI Espino ([id number]) [facility] ([facility]) [address] [place] [address] Phosphate [Mass/Vol] 3.4 mg/dL Normal 2.5-4.9 [facility] Comment on above: Result Comment: The performance characteristics of phosphorus testing in heparinized plasma have been validated by the individual laboratory site where testing is performed. Testing on heparinized plasma is not approved by the FDA; however, such approval is not necessary. Performed By: #### 3 4532-2 #### SYDNI Espino ([id number]) [facility] ([facility]) [address] [place] [address] Potassium [Moles/Vol] 4.3 mmol/L Normal 3.5-5.3 [facility] Comment on above: Performed By: #### 3 4532-2 #### SYDNI Espino ([id number]) [facility] ([facility]) [address] [place] [address] Sodium [Moles/Vol] 143 mmol/L Normal 136-145 [facility] Comment on above: Performed By: #### 3 4532-2 #### SYDNI Espino ([id number]) [facility] ([facility]) [address] [place] [address] Urea nitrogen [Mass/Vol] 41 mg/dL High 6-23 [facility] Comment on above: Performed By: #### 3 4532-2 #### SYDNI Espino ([id number]) [facility] ([facility]) [address] [place] [address] CBC panel Auto (Bld)on 05-04 Erythrocyte distribution width (RBC) [Ratio] 15.4 % High 11.5 - 14.5 % [facility] Hematocrit (Bld) [Volume fraction] 26.8 % Low 41.0 - 52.0 % [facility] Hemoglobin (Bld) [Mass/Vol] 8.3 g/dL Low 13.5 - 17.5 g/dL [facility] Interpretation and review of laboratory results Abnormal [facility] MCH (RBC) [Entitic mass] 29.3 pg 26.0 - 34.0 pg [facility] MCHC (RBC) [Mass/Vol] 31.0 g/dL Low 32.0 - 36.0 g/dL [facility] MCV (RBC) [Entitic vol] 95 fL 80 - 100 fL [facility] Nucleated RBC/100 WBC (Bld) [Ratio] 0.0 % [facility] Platelets (Bld) [#/Vol] 300 10*3/uL [facility] RBC (Bld) [#/Vol] 2.83 10*6/uL Low [facility] WBC (Bld) [#/Vol] 7.9 10*3/uL [facility] Erythrocyte distribution width (RBC) [Ratio] 15.4 % High 11.5-14.5 [facility] Comment on above: Performed By: #### 3 4532-2 #### SYDNI Espino ([id number]) [facility] ([facility]) [address] [place] [address] Hematocrit (Bld) [Volume fraction] 26.8 % Low 41.0-52.0 [facility] Comment on above: Performed By: #### 3 4532-2 #### SYDNI Espino ([id number]) [facility] ([facility]) [address] [place] [address] Hemoglobin (Bld) [Mass/Vol] 8.3 g/dL Low 13.5-17.5 [facility] Comment on above: Performed By: #### 3 4531-2 #### SYDNI Espino ([id number]) [facility] ([facility]) [address] [place] [address] MCH (RBC) [Entitic mass] 29.3 pg Normal 26.0-34.0 [facility] Comment on above: Performed By: #### 3 4531-2 #### SYDNI Espino ([id number]) [facility] ([facility]) [address] [place] [address] MCHC (RBC) [Mass/Vol] 31.0 g/dL Low 32.0-36.0 [facility] Comment on above: Performed By: #### 3 4531-2 #### SYDNI Espino ([id number]) [facility] ([facility]) [address] [place] [address] MCV (RBC) [Entitic vol] 95 fL Normal 80-100 [facility] Comment on above: Performed By: #### 3 4531-2 #### SYDNI Espino ([id number]) [facility] ([facility]) [address] [place] [address] Nucleated RBC/100 WBC (Bld) [Ratio] 0.0 /100 WBCs Normal 0.0-0.0 [facility] Comment on above: Performed By: #### 3 4531-2 #### SYDNI Espino ([id number]) [facility] ([facility]) [address] [place] [address] Platelets (Bld) [#/Vol] 300 x10*3/uL Normal 150-450 [facility] Comment on above: Performed By: #### 3 4531-2 #### SYDNI Espino ([id number]) [facility] ([facility]) [address] [place] [address] RBC (Bld) [#/Vol] 2.83 x10*6/uL Low 4.50-5.90 [facility] Comment on above: Performed By: #### 3 4531-2 #### SYDNI Espino ([id number]) [facility] ([facility]) [address] [place] [address] WBC (Bld) [#/Vol] 7.9 x10*3/uL Normal 4.4-11.3 [facility] Comment on above: Performed By: #### 3 4531-2 #### SYDNI Espino ([id number]) [facility] ([facility]) [address] [place] [address] Glucose Test strip manual (B ld) [Mass/Vol]on 05-04-2024 Glucose [Mass/Vol] 141 mg/dL High 74 - 99 mg/dL [facility] Interpretation and review of laboratory results Abnormal [facility] Glucose [Mass/Vol] 141 mg/dL High 74-99 [facility] Comment on above: Performed By: #### 3 4531-2 #### SYDNI Espino ([id number]) [facility] ([facility]) [address] [place] [address] Glucose [Mass/Vol] 134 mg/dL High 74 - 99 mg/dL [facility] Interpretation and review of laboratory results Abnormal [facility] Glucose [Mass/Vol] 134 mg/dL High 74-99 [facility] Comment on above: Performed By: #### 3 4531-2 #### SYDNI Espino ([id number]) [facility] ([facility]) [address] [place] [address] Glucose [Mass/Vol] 126 mg/dL High 74 - 99 mg/dL [facility] Interpretation and review of laboratory results Abnormal [facility] Glucose [Mass/Vol] 126 mg/dL High 74-99 [facility] Comment on above: Performed By: #### 3 4531-2 #### SYDNI Espino ([id number]) [facility] ([facility]) [address] [place] [address] Glucose [Mass/Vol] 124 mg/dL High 74 - 99 mg/dL [facility] Interpretation and review of laboratory results Abnormal [facility] Glucose [Mass/Vol] 124 mg/dL High 74-99 [facility] Comment on above: Performed By: #### 3 4532-2 #### SYDNI Espino ([id number]) [facility] ([facility]) [address] [place] [address] Magnesiumon 05-04-2024 Magnesium [Mass/Vol] 2.15 mg/dL 1.60 - 2.40 mg/dL [facility] Magnesium [Mass/Vol] 2.15 mg/dL Normal 1.60-2.40 [facility] Comment on above: Performed By: #### 3 4532-2 #### SYDNI Espino ([id number]) [facility] ([facility]) [address] [place] [address] Magnesium [Mass/Vol]on 05-04 Interpretation and review of laboratory results Normal [facility] No Panel Informationon 05-04 [facility] Renal function 2000 panelon 05-04-2024 Albumin BCP dye [Mass/Vol] 2.7 g/dL Low 3.4 - 5.0 g/dL [facility] Anion gap [Moles/Vol] 11 mmol/L 10 - 20 mmol/L [facility] Calcium [Mass/Vol] 7.9 mg/dL Low 8.6 - 10. 6 mg/dL [facility] Chloride [Moles/Vol] 109 mmol/L High 98 - 10 7 mmol/L [facility] CO2 [Moles/Vol] 25 mmol/L 21 - 32 mmol/L [facility] Creatinine [Mass/Vol] 1.26 mg/dL 0.50 - 1.30 mg/dL [facility] GFR/1.73 sq M.predicted among non-blacks MDRD (S/P/Bld) [Vol rate/Area] 60 mL/min/{1.73_m2} Low - PINF [facility] Glucose [Mass/Vol] 113 mg/dL High 74 - 99 mg/dL [facility] Interpretation and review of laboratory results Abnormal [facility] Phosphate [Mass/Vol] 3.0 mg/dL 2.5 - 4 .9 mg/dL [facility] Potassium [Moles/Vol] 3.9 mmol/L 3.5 - 5.3 mmol/L [facility] Sodium [Moles/Vol] 141 mmol/L 136 - 145 mmol/L [facility] Urea nitrogen [Mass/Vol] 43 mg/dL High 6 - 23 mg/dL [facility] Albumin BCP dye [Mass/Vol] 2.7 g/dL Low 3.4-5.0 [facility] Comment on above: Performed By: #### 3 4532-2 #### SYDNI Espino ([id number]) [facility] ([facility]) [address] [place] [address] Anion gap [Moles/Vol] 11 mmol/L Normal 10-20 [facility] Comment on above: Performed By: #### 3 4531-2 #### SYDNI Espino ([id number]) [facility] ([facility]) [address] [place] [address] Calcium [Mass/Vol] 7.9 mg/dL Low 8.6-10.6 [facility] Comment on above: Performed By: #### 3 2-2 #### SYDNI Espino ([id number]) [facility] ([facility]) [address] [place] [address] Chloride [Moles/Vol] 109 mmol/L High 98-107 [facility] Comment on above: Performed By: #### 3 4531-2 #### SYDNI Espino ([id number]) [facility] ([facility]) [address] [place] [address] CO2 [Moles/Vol] 25 mmol/L Normal 21-32 [facility] Comment on above: Performed By: #### 3 4531-2 #### SYDNI Espino ([id number]) [facility] ([facility]) [address] [place] [address] Creatinine [Mass/Vol] 1.26 mg/dL Normal 0.50-1.30 [facility] Comment on above: Performed By: #### 3 4532-2 #### SYDNI Espino ([id number]) [facility] ([facility]) [address] [place] [address] Glomerular filtration rate/1.73 sq M.predicted 60 mL/min/1.73m*2 Low >60 [facility] Comment on above: Result Comment: Calc ulations of estimated GFR are performed using the 2020 CKD-EPI Study Refit equation without the race variable for the IDMS-Traceable creatinine methods. https://jasn.asnjournals.org/content/early/ASN.8063516 988 Performed By: #### 3 4532-2 #### SYDNI Espino ([id number]) [facility] ([facility]) [address] [place] [address] Glucose [Mass/Vol] 113 mg/dL High 74-99 [facility] Comment on above: Performed By: #### 3 4532-2 #### SYDNI Espino ([id number]) [facility] ([facility]) [address] [place] [address] Phosphate [Mass/Vol] 3.0 mg/dL Normal 2.5-4.9 [facility] Comment on above: Result Comment: The performance characteristics of phosphorus testing in heparinized plasma have been validated by the individual laboratory site where testing is performed. Testing on heparinized plasma is not approved by the FDA; however, such approval is not necessary. Performed By: #### 3 4532-2 #### SYDNI Espino ([id number]) [facility] ([facility]) [address] [place] [address] Potassium [Moles/Vol] 3.9 mmol/L Normal 3.5-5.3 [facility] Comment on above: Performed By: #### 3 4532-2 #### SYDNI Espino ([id number]) [facility] ([facility]) [address] [place] [address] Sodium [Moles/Vol] 141 mmol/L Normal 136-145 [facility] Comment on above: Performed By: #### 3 4532-2 #### SYDNI Espino ([id number]) [facility] ([facility]) [address] [place] [address] Urea nitrogen [Mass/Vol] 43 mg/dL High 6-23 [facility] Comment on above: Performed By: #### 3 4532-2 #### SYDNI Espino ([id number]) [facility] ([facility]) [address] [place] [address] Anjelica 05-03-2024 ALT With P-5'-P [Catalytic activity/Vol] 26 U/L 10 - 52 U/L [facility] Pb 05-03-2024 AST With P-5'-P [Catalytic activity/Vol] 18 U/L 9 - 39 U/L [facility] Alkaline phosphataseon 05-03 ALP [Catalytic activity/Vol] 77 U/L 33 - 136 U/L [facility] CBC panel Auto (Bld)on 05-03 Erythrocyte distribution width (RBC) [Ratio] 15.5 % High 11.5 - 14.5 % [facility] Hematocrit (Bld) [Volume fraction] 26.6 % Low 41.0 - 52.0 % [facility] Hemoglobin (Bld) [Mass/Vol] 8.1 g/dL Low 13.5 - 17.5 g/dL [facility] Interpretation and review of laboratory results Abnormal [facility] MCH (RBC) [Entitic mass] 29.2 pg 26.0 - 34.0 pg [facility] MCHC (RBC) [Mass/Vol] 30.5 g/dL Low 32.0 - 36.0 g/dL [facility] MCV (RBC) [Entitic vol] 96 fL 80 - 100 fL [facility] Nucleated RBC/100 WBC (Bld) [Ratio] 0.0 % [facility] Platelets (Bld) [#/Vol] 302 10*3/uL [facility] RBC (Bld) [#/Vol] 2.77 10*6/uL Low [facility] WBC (Bld) [#/Vol] 8.3 10*3/uL [facility] Erythrocyte distribution width (RBC) [Ratio] 15.5 % High 11.5-14.5 [facility] Comment on above: Performed By: #### 3 4531-2 #### SYDNI Espino ([id number]) [facility] ([facility]) [address] [place] [address] Hematocrit (Bld) [Volume fraction] 26.6 % Low 41.0-52.0 [facility] Comment on above: Performed By: #### 3 4531-2 #### SYDNI Espino ([id number]) [facility] ([facility]) [address] [place] [address] Hemoglobin (Bld) [Mass/Vol] 8.1 g/dL Low 13.5-17.5 [facility] Comment on above: Performed By: #### 3 4531-2 #### SYDNI Espino ([id number]) [facility] ([facility]) [address] [place] [address] MCH (RBC) [Entitic mass] 29.2 pg Normal 26.0-34.0 [facility] Comment on above: Performed By: #### 3 4531-2 #### SYDNI Espino ([id number]) [facility] ([facility]) [address] [place] [address] MCHC (RBC) [Mass/Vol] 30.5 g/dL Low 32.0-36.0 [facility] Comment on above: Performed By: #### 3 4531-2 #### SYDNI Espino ([id number]) [facility] ([facility]) [address] [place] [address] MCV (RBC) [Entitic vol] 96 fL Normal 80-100 [facility] Comment on above: Performed By: #### 3 4532-2 #### SYDNI Espino ([id number]) [facility] ([facility]) [address] [place] [address] Nucleated RBC/100 WBC (Bld) [Ratio] 0.0 /100 WBCs Normal 0.0-0.0 [facility] Comment on above: Performed By: #### 3 4532-2 #### SYDNI Espino ([id number]) [facility] ([facility]) [address] [place] [address] Platelets (Bld) [#/Vol] 302 x10*3/uL Normal 150-450 [facility] Comment on above: Performed By: #### 3 453-2 #### SYDNI Espino ([id number]) [facility] ([facility]) [address] [place] [address] RBC (Bld) [#/Vol] 2.77 x10*6/uL Low 4.50-5.90 [facility] Comment on above: Performed By: #### 3 4531-2 #### SYDNI Espino ([id number]) [facility] ([facility]) [address] [place] [address] WBC (Bld) [#/Vol] 8.3 x10*3/uL Normal 4.4-11.3 [facility] Comment on above: Performed By: #### 3 4532-2 #### SYDNI Espino ([id number]) [facility] ([facility]) [address] [place] [address] Glucose Test strip manual (B ld) [Mass/Vol]on 05-03-2024 Glucose [Mass/Vol] 131 mg/dL High 74 - 99 mg/dL [facility] Interpretation and review of laboratory results Abnormal [facility] Glucose [Mass/Vol] 131 mg/dL High 74-99 [facility] Comment on above: Performed By: #### 3 4532-2 #### SYDNI Espino ([id number]) [facility] ([facility]) [address] [place] [address] Glucose [Mass/Vol] 136 mg/dL High 74 - 99 mg/dL [facility] Interpretation and review of laboratory results Abnormal [facility] Glucose [Mass/Vol] 136 mg/dL High 74-99 [facility] Comment on above: Performed By: #### 3 4532-2 #### SYDNI Espino ([id number]) [facility] ([facility]) [address] [place] [address] Glucose [Mass/Vol] 131 mg/dL High 74 - 99 mg/dL [facility] Interpretation and review of laboratory results Abnormal [facility] Glucose [Mass/Vol] 131 mg/dL High 74-99 [facility] Comment on above: Performed By: #### 3 4532-2 #### SYDNI Espino ([id number]) [facility] ([facility]) [address] [place] [address] Glucose [Mass/Vol] 128 mg/dL High 74 - 99 mg/dL [facility] Interpretation and review of laboratory results Abnormal [facility] Glucose [Mass/Vol] 128 mg/dL High 74-99 [facility] Comment on above: Performed By: #### 3 4532-2 #### SYDNI Espino ([id number]) [facility] ([facility]) [address] [place] [address] No Panel Informationon 05-03 Interpretation and review of laboratory results Normal [facility] Prepare RBC: 1 Unitson 05-03 Blood Expiration Date 05/05/2024 11:59:00 PM EDT [facility] Dispense Status PT [facility] PRODUCT BLOOD TYPE 9500 [facility] PRODUCT CODE [id number] [facility] Unit ABO O [facility] Unit Number [id number] [facility] Unit RH Negative [facility] UNIT VOLUME 350 [facility] XM INTEP COMP [facility] Triglycerideson 05-03-2024 Triglyceride [Mass/Vol] 111 mg/dL 0 - 149 mg/dL [facility] XR Abdomen Single viewon UH MMODAL UH MMODAL [facility] Work Phone: [facility] Work Phone: Alanine aminotransferaseon 0 05-02-2024 ALT With P-5'-P [Catalytic activity/Vol] 26 U/L Normal 10-52 [facility] Comment on above: Result Comment: Taylor ents treated with Sulfasalazine may generate falsely decreased results for ALT. Performed By: #### 3 4532-2 #### SYDNI Espino ([id number]) [facility] ([facility]) [address] [place] [address] Alkaline phosphataseon 05-02 ALP [Catalytic activity/Vol] 77 U/L Normal 33-136 [facility] Comment on above: Performed By: #### 3 4532-2 #### SYDNI Espino ([id number]) [facility] ([facility]) [address] [place] [address] Aspartate aminotransferaseon 05-02-2024 AST With P-5'-P [Catalytic activity/Vol] 18 U/L Normal 9-39 [facility] Comment on above: Performed By: #### 3 4532-2 #### SYDNI Espino ([id number]) [facility] ([facility]) [address] [place] [address] Blood type and Indirect anti body screen panel (Bld)on 05-02-2024 ABO group Nom (Bld) A [facility] Blood group antibody screen Ql Negative [facility] D Ag Ql (Bld) Positive [facility] ABO group Nom (Bld) A Normal [facility] Comment on above: Performed By: #### 3 4532-2 #### SYDNI Espino ([id number]) [facility] ([facility]) [address] [place] [address] Blood group antibody screen Ql Negative Normal [facility] Comment on above: Performed By: #### 3 4532-2 #### SYDNI Espino ([id number]) [facility] ([facility]) [address] [place] [address] D Ag Ql (Bld) Positive [facility] Comment on above: Performed By: #### 3 4532-2 #### SYDNI Espino ([id number]) [facility] ([facility]) [address] [place] [address] CBC panel Auto (Bld)on 05-02 Erythrocyte distribution width (RBC) [Ratio] 15.4 % High 11.5 - 14.5 % [facility] Hematocrit (Bld) [Volume fraction] 21.2 % Low 41.0 - 52.0 % [facility] Hemoglobin (Bld) [Mass/Vol] 6.7 g/dL Low 13.5 - 17.5 g/dL [facility] Interpretation and review of laboratory results Abnormal [facility] MCH (RBC) [Entitic mass] 29.4 pg 26.0 - 34.0 pg [facility] MCHC (RBC) [Mass/Vol] 31.6 g/dL Low 32.0 - 36.0 g/dL [facility] MCV (RBC) [Entitic vol] 93 fL 80 - 100 fL [facility] Nucleated RBC/100 WBC (Bld) [Ratio] 0.0 % [facility] Platelets (Bld) [#/Vol] 269 10*3/uL [facility] RBC (Bld) [#/Vol] 2.28 10*6/uL Low [facility] WBC (Bld) [#/Vol] 9.9 10*3/uL [facility] Erythrocyte distribution width (RBC) [Ratio] 15.4 % High 11.5-14.5 [facility] Comment on above: Performed By: #### 3 4532-2 #### SYDNI Espino ([id number]) [facility] ([facility]) [address] [place] [address] Hematocrit (Bld) [Volume fraction] 21.2 % Low 41.0-52.0 [facility] Comment on above: Performed By: #### 3 453-2 #### SYDNI Espino ([id number]) [facility] ([facility]) [address] [place] [address] Hemoglobin (Bld) [Mass/Vol] 6.7 g/dL Low 13.5-17.5 [facility] Comment on above: Performed By: #### 3 4531-2 #### SYDNI Espino ([id number]) [facility] ([facility]) [address] [place] [address] MCH (RBC) [Entitic mass] 29.4 pg Normal 26.0-34.0 [facility] Comment on above: Performed By: #### 3 4531-2 #### SYDNI Espino ([id number]) [facility] ([facility]) [address] [place] [address] MCHC (RBC) [Mass/Vol] 31.6 g/dL Low 32.0-36.0 [facility] Comment on above: Performed By: #### 3 4531-2 #### SYDNI Espino ([id number]) [facility] ([facility]) [address] [place] [address] MCV (RBC) [Entitic vol] 93 fL Normal 80-100 [facility] Comment on above: Performed By: #### 3 4531-2 #### SYDNI Espino ([id number]) [facility] ([facility]) [address] [place] [address] Nucleated RBC/100 WBC (Bld) [Ratio] 0.0 /100 WBCs Normal 0.0-0.0 [facility] Comment on above: Performed By: #### 3 453-2 #### SYDNI Espino ([id number]) [facility] ([facility]) [address] [place] [address] Platelets (Bld) [#/Vol] 269 x10*3/uL Normal 150-450 [facility] Comment on above: Performed By: #### 3 4532-2 #### SYDNI Espino ([id number]) [facility] ([facility]) [address] [place] [address] RBC (Bld) [#/Vol] 2.28 x10*6/uL Low 4.50-5.90 [facility] Comment on above: Performed By: #### 3 4531-2 #### SYDNI Espino ([id number]) [facility] ([facility]) [address] [place] [address] WBC (Bld) [#/Vol] 9.9 x10*3/uL Normal 4.4-11.3 [facility] Comment on above: Performed By: #### 3 4532-2 #### SYDNI Espino ([id number]) [facility] ([facility]) [address] [place] [address] Glucose Test strip manual (B ld) [Mass/Vol]on 05-02-2024 Glucose [Mass/Vol] 152 mg/dL High 74 - 99 mg/dL [facility] Interpretation and review of laboratory results Abnormal [facility] Glucose [Mass/Vol] 152 mg/dL High 74-99 [facility] Comment on above: Performed By: #### 3 4531-2 #### SYDNI Espino ([id number]) [facility] ([facility]) [address] [place] [address] Glucose [Mass/Vol] 142 mg/dL High 74 - 99 mg/dL [facility] Interpretation and review of laboratory results Abnormal [facility] Glucose [Mass/Vol] 142 mg/dL High 74-99 [facility] Comment on above: Performed By: #### 3 4532-2 #### SYDNI Espino ([id number]) [facility] ([facility]) [address] [place] [address] Magnesiumon 05-02-2024 Magnesium [Mass/Vol] 2.23 mg/dL 1.60 - 2.40 mg/dL [facility] Magnesium [Mass/Vol] 2.23 mg/dL Normal 1.60-2.40 [facility] Comment on above: Performed By: #### 3 4532-2 #### SYDNI Espino ([id number]) [facility] ([facility]) [address] [place] [address] Magnesium [Mass/Vol]on 05-02 Interpretation and review of laboratory results Normal [facility] No Panel Informationon 05-02 [facility] Renal function 2000 panelon 05-02-2024 Albumin BCP dye [Mass/Vol] 2.5 g/dL Low 3.4 - 5.0 g/dL [facility] Anion gap [Moles/Vol] 11 mmol/L 10 - 20 mmol/L [facility] Calcium [Mass/Vol] 7.4 mg/dL Low 8.6 - 10. 6 mg/dL [facility] Chloride [Moles/Vol] 104 mmol/L 98 - 10 7 mmol/L [facility] CO2 [Moles/Vol] 31 mmol/L 21 - 32 mmol/L [facility] Creatinine [Mass/Vol] 1.96 mg/dL High 0.50 - 1.30 mg/dL [facility] GFR/1.73 sq M.predicted among non-blacks MDRD (S/P/Bld) [Vol rate/Area] 35 mL/min/{1.73_m2} Low - PINF [facility] Glucose [Mass/Vol] 151 mg/dL High 74 - 99 mg/dL [facility] Interpretation and review of laboratory results Abnormal [facility] Phosphate [Mass/Vol] 4.0 mg/dL 2.5 - 4 .9 mg/dL [facility] Potassium [Moles/Vol] 3.4 mmol/L Low 3.5 - 5.3 mmol/L [facility] Sodium [Moles/Vol] 143 mmol/L 136 - 145 mmol/L [facility] Urea nitrogen [Mass/Vol] 71 mg/dL High 6 - 23 mg/dL [facility] Albumin BCP dye [Mass/Vol] 2.5 g/dL Low 3.4-5.0 [facility] Comment on above: Performed By: #### 3 4532-2 #### SYDNI Espino ([id number]) [facility] ([facility]) [address] [place] [address] Anion gap [Moles/Vol] 11 mmol/L Normal 10-20 [facility] Comment on above: Performed By: #### 3 4531-2 #### SYDNI Espino ([id number]) [facility] ([facility]) [address] [place] [address] Calcium [Mass/Vol] 7.4 mg/dL Low 8.6-10.6 [facility] Comment on above: Performed By: #### 3 4532-2 #### SYDNI Espino ([id number]) [facility] ([facility]) [address] [place] [address] Chloride [Moles/Vol] 104 mmol/L Normal 98-107 [facility] Comment on above: Performed By: #### 3 4532-2 #### SYDNI Espino ([id number]) [facility] ([facility]) [address] [place] [address] CO2 [Moles/Vol] 31 mmol/L Normal 21-32 [facility] Comment on above: Performed By: #### 3 4532-2 #### SYDNI Espino ([id number]) [facility] ([facility]) [address] [place] [address] Creatinine [Mass/Vol] 1.96 mg/dL High 0.50-1.30 [facility] Comment on above: Performed By: #### 3 4532-2 #### SYDNI Espino ([id number]) [facility] ([facility]) [address] [place] [address] Glomerular filtration rate/1.73 sq M.predicted 35 mL/min/1.73m*2 Low >60 [facility] Comment on above: Result Comment: Calc ulations of estimated GFR are performed using the 2020 CKD-EPI Study Refit equation without the race variable for the IDMS-Traceable creatinine methods. https://jasn.asnjournals.org/content//ASN.1515265 988 Performed By: #### 3 4532-2 #### SYDNI Espino ([id number]) [facility] ([facility]) [address] [place] [address] Glucose [Mass/Vol] 151 mg/dL High 74-99 [facility] Comment on above: Performed By: #### 3 4532-2 #### SYDNI Espino ([id number]) [facility] ([facility]) [address] [place] [address] Phosphate [Mass/Vol] 4.0 mg/dL Normal 2.5-4.9 [facility] Comment on above: Result Comment: The performance characteristics of phosphorus testing in heparinized plasma have been validated by the individual laboratory site where testing is performed. Testing on heparinized plasma is not approved by the FDA; however, such approval is not necessary. Performed By: #### 3 4532-2 #### SYDNI Espino ([id number]) [facility] ([facility]) [address] [place] [address] Potassium [Moles/Vol] 3.4 mmol/L Low 3.5-5.3 [facility] Comment on above: Performed By: #### 3 4532-2 #### SYDNI Espino ([id number]) [facility] ([facility]) [address] [place] [address] Sodium [Moles/Vol] 143 mmol/L Normal 136-145 [facility] Comment on above: Performed By: #### 3 4532-2 #### SYDNI Espino ([id number]) [facility] ([facility]) [address] [place] [address] Urea nitrogen [Mass/Vol] 71 mg/dL High 6-23 [facility] Comment on above: Performed By: #### 3 4532-2 #### SYDNI Espino ([id number]) [facility] ([facility]) [address] [place] [address] Triglycerideon 05-02-2024 Triglyceride [Mass/Vol] 111 mg/dL Normal 0-149 [facility] Comment on above: Result Comment: Age Desirable Borderline High High Very High 0 D-90 D 19 - 174 ---- ---- ---- 91 D- 9 Y 0 - 74 75 - 99 >/= 100 ---- 10-19 Y 0 - 89 90 - 129 >/= 130 ---- 20-24 Y 0 - 114 115 - 149 >/= 150 ---- >24 Y 0 - 149 150 - 199 200- 499 >/= 500 Venipuncture immediately after or during the administration of Metamizole may lead to falsely low results. Testing should be performed immediately prior to Metamizole dosing. Performed By: #### 3 4532-2 #### SYDNI Espino ([id number]) [facility] ([facility]) [address] [place] [address] XR ABDOMEN 1 VIEWon 05-02-20 XR ABDOMEN 1 VIEW Interpreted By: Jose Flores and Nakamoto Kent STUDY: XR ABDOMEN 1 VIEW; 05/02/2024 8:30 pm INDICATION: Signs/Symptoms:Confirm NG tube placement. COMPARISON: Abdominal radiograph 04/29/2024 ACCESSION NUMBER(S): [id number] ORDERING CLINICIAN: JARED GASPAR FINDINGS: Enteric tube seen coursing below the level diaphragm with tip projecting over the proximal gastric fundus. Nonobstructive bowel gas pattern. There is evidence of contrast within the hepatic flexure without evidence of contrast extravasation. Limited evaluation of pneumoperitoneum on supine imaging, however no gross evidence of free air is noted. Postsurgical changes noted along the mid abdomen with edd over the midline. Vizualized lungs are clear. There is evidence of left chest wall subcutaneous emphysema (marked with arrow). Osseous structures demonstrate no acute bony changes. IMPRESSION: 1. Enteric tube seen coursing below the level diaphragm with tip projecting over the proximal gastric fundus. Repositioning of the enteric tube can be considered based on physician preference. 2. Nonobstructive bowel gas pattern. 3. Left lateral chest wall subcutaneous emphysema that was previously seen on chest radiograph 04/26/2024. I personally reviewed the images/study and I agree with the findings as stated by Joel Schneider MD. This study was interpreted at [facility], [place], [place]. MACRO: None Signed by: Jose Morales 05/03/2024 10:22 AM Dictation workstation: [id number] Normal [facility] XR Abdomen Single viewon Radiology Study observation (narrative) [facility] Work Phone: CBC panel Auto (Bld)on 05-01 Erythrocyte distribution width (RBC) [Ratio] 15.7 % High 11.5 - 14.5 % [facility] Hematocrit (Bld) [Volume fraction] 24.2 % Low 41.0 - 52.0 % [facility] Hemoglobin (Bld) [Mass/Vol] 7.7 g/dL Low 13.5 - 17.5 g/dL [facility] Interpretation and review of laboratory results Abnormal [facility] MCH (RBC) [Entitic mass] 31.2 pg 26.0 - 34.0 pg [facility] MCHC (RBC) [Mass/Vol] 31.8 g/dL Low 32.0 - 36.0 g/dL [facility] MCV (RBC) [Entitic vol] 98 fL 80 - 100 fL [facility] Nucleated RBC/100 WBC (Bld) [Ratio] 0.0 % [facility] Platelets (Bld) [#/Vol] 267 10*3/uL [facility] RBC (Bld) [#/Vol] 2.47 10*6/uL Low [facility] WBC (Bld) [#/Vol] 10.0 10*3/uL [facility] Erythrocyte distribution width (RBC) [Ratio] 15.7 % High 11.5-14.5 [facility] Comment on above: Performed By: #### 3 4532-2 #### SYDNI Espino ([id number]) [facility] ([facility]) [address] [place] [address] Hematocrit (Bld) [Volume fraction] 24.2 % Low 41.0-52.0 [facility] Comment on above: Performed By: #### 3 453-2 #### SYDNI Espino ([id number]) [facility] ([facility]) [address] [place] [address] Hemoglobin (Bld) [Mass/Vol] 7.7 g/dL Low 13.5-17.5 [facility] Comment on above: Performed By: #### 3 4531-2 #### SYDNI Espino ([id number]) [facility] ([facility]) [address] [place] [address] MCH (RBC) [Entitic mass] 31.2 pg Normal 26.0-34.0 [facility] Comment on above: Performed By: #### 3 4531-2 #### SYDNI Espino ([id number]) [facility] ([facility]) [address] [place] [address] MCHC (RBC) [Mass/Vol] 31.8 g/dL Low 32.0-36.0 [facility] Comment on above: Performed By: #### 3 4531-2 #### SYDNI Espino ([id number]) [facility] ([facility]) [address] [place] [address] MCV (RBC) [Entitic vol] 98 fL Normal 80-100 [facility] Comment on above: Performed By: #### 3 4531-2 #### SYDNI Espino ([id number]) [facility] ([facility]) [address] [place] [address] Nucleated RBC/100 WBC (Bld) [Ratio] 0.0 /100 WBCs Normal 0.0-0.0 [facility] Comment on above: Performed By: #### 3 4531-2 #### SYDNI Espino ([id number]) [facility] ([facility]) [address] [place] [address] Platelets (Bld) [#/Vol] 267 x10*3/uL Normal 150-450 [facility] Comment on above: Performed By: #### 3 4532-2 #### SYDNI Espino ([id number]) [facility] ([facility]) [address] [place] [address] RBC (Bld) [#/Vol] 2.47 x10*6/uL Low 4.50-5.90 [facility] Comment on above: Performed By: #### 3 4531-2 #### SYDNI Espino ([id number]) [facility] ([facility]) [address] [place] [address] WBC (Bld) [#/Vol] 10.0 x10*3/uL Normal 4.4-11.3 [facility] Comment on above: Performed By: #### 3 453-2 #### SYDNI Espino ([id number]) [facility] ([facility]) [address] [place] [address] Glucose Test strip manual (B ld) [Mass/Vol]on 05-01-2024 Glucose [Mass/Vol] 228 mg/dL High 74 - 99 mg/dL [facility] Interpretation and review of laboratory results Abnormal [facility] Glucose [Mass/Vol] 228 mg/dL High 74-99 [facility] Comment on above: Performed By: #### 3 453-2 #### SYDNI Espino ([id number]) [facility] ([facility]) [address] [place] [address] Glucose [Mass/Vol] 142 mg/dL High 74 - 99 mg/dL [facility] Interpretation and review of laboratory results Abnormal [facility] Glucose [Mass/Vol] 142 mg/dL High 74-99 [facility] Comment on above: Performed By: #### 3 4532-2 #### SYDNI Espino ([id number]) [facility] ([facility]) [address] [place] [address] Glucose [Mass/Vol] 150 mg/dL High 74 - 99 mg/dL [facility] Interpretation and review of laboratory results Abnormal [facility] Glucose [Mass/Vol] 150 mg/dL High 74-99 [facility] Comment on above: Performed By: #### 3 4532-2 #### SYDNI Espino ([id number]) [facility] ([facility]) [address] [place] [address] Glucose [Mass/Vol] 128 mg/dL High 74 - 99 mg/dL [facility] Interpretation and review of laboratory results Abnormal [facility] Glucose [Mass/Vol] 128 mg/dL High 74-99 [facility] Comment on above: Performed By: #### 3 4532-2 #### SYDNI Espino ([id number]) [facility] ([facility]) [address] [place] [address] Magnesiumon 05-01-2024 Magnesium [Mass/Vol] 2.20 mg/dL 1.60 - 2.40 mg/dL [facility] Magnesium [Mass/Vol] 2.20 mg/dL Normal 1.60-2.40 [facility] Comment on above: Performed By: #### 3 4532-2 #### SYDNI Espino ([id number]) [facility] ([facility]) [address] [place] [address] Magnesium [Mass/Vol]on 05-01 Interpretation and review of laboratory results Normal [facility] No Panel Informationon 05-01 [facility] Renal function 2000 panelon 05-01-2024 Albumin BCP dye [Mass/Vol] 2.5 g/dL Low 3.4 - 5.0 g/dL [facility] Anion gap [Moles/Vol] 11 mmol/L 10 - 20 mmol/L [facility] Calcium [Mass/Vol] 7.2 mg/dL Low 8.6 - 10. 6 mg/dL [facility] Chloride [Moles/Vol] 101 mmol/L 98 - 10 7 mmol/L [facility] CO2 [Moles/Vol] 34 mmol/L High 21 - 32 mmol/L [facility] Creatinine [Mass/Vol] 2.21 mg/dL High 0.50 - 1.30 mg/dL [facility] GFR/1.73 sq M.predicted among non-blacks MDRD (S/P/Bld) [Vol rate/Area] 30 mL/min/{1.73_m2} Low - PINF [facility] Glucose [Mass/Vol] 132 mg/dL High 74 - 99 mg/dL [facility] Interpretation and review of laboratory results Abnormal [facility] Phosphate [Mass/Vol] 5.7 mg/dL High 2.5 - 4 .9 mg/dL [facility] Potassium [Moles/Vol] 3.9 mmol/L 3.5 - 5.3 mmol/L [facility] Sodium [Moles/Vol] 142 mmol/L 136 - 145 mmol/L [facility] Urea nitrogen [Mass/Vol] 80 mg/dL High 6 - 23 mg/dL [facility] Albumin BCP dye [Mass/Vol] 2.5 g/dL Low 3.4-5.0 [facility] Comment on above: Performed By: #### 3 4532-2 #### SYDNI Espino ([id number]) [facility] ([facility]) [address] [place] [address] Anion gap [Moles/Vol] 11 mmol/L Normal 10-20 [facility] Comment on above: Performed By: #### 3 4532-2 #### SYDNI Espino ([id number]) [facility] ([facility]) [address] [place] [address] Calcium [Mass/Vol] 7.2 mg/dL Low 8.6-10.6 [facility] Comment on above: Performed By: #### 3 4532-2 #### SYDNI Espino ([id number]) [facility] ([facility]) [address] [place] [address] Chloride [Moles/Vol] 101 mmol/L Normal 98-107 [facility] Comment on above: Performed By: #### 3 4532-2 #### SYDNI Espino ([id number]) [facility] ([facility]) [address] [place] [address] CO2 [Moles/Vol] 34 mmol/L High 21-32 [facility] Comment on above: Performed By: #### 3 4532-2 #### SYDNI Espino ([id number]) [facility] ([facility]) [address] [place] [address] Creatinine [Mass/Vol] 2.21 mg/dL High 0.50-1.30 [facility] Comment on above: Performed By: #### 3 4532-2 #### SYDNI Espino ([id number]) [facility] ([facility]) [address] [place] [address] Glomerular filtration rate/1.73 sq M.predicted 30 mL/min/1.73m*2 Low >60 [facility] Comment on above: Result Comment: Calc ulations of estimated GFR are performed using the 2020 CKD-EPI Study Refit equation without the race variable for the IDMS-Traceable creatinine methods. https://jasn.asnjournals.org/content//ASN.5012964 988 Performed By: #### 3 4532-2 #### SYDNI Espino ([id number]) [facility] [facility] ([facility]) [address] [place] [address] Glucose [Mass/Vol] 132 mg/dL High 74-99 [facility] Comment on above: Performed By: #### 3 4532-2 #### SYDNI Espino ([id number]) [facility] ([facility]) [address] [place] [address] Phosphate [Mass/Vol] 5.7 mg/dL High 2.5-4.9 [facility] Comment on above: Result Comment: The performance characteristics of phosphorus testing in heparinized plasma have been validated by the individual laboratory site where testing is performed. Testing on heparinized plasma is not approved by the FDA; however, such approval is not necessary. Performed By: #### 3 4532-2 #### SYNDI Espino ([id number]) [facility] ([facility]) [address] [place] [address] Potassium [Moles/Vol] 3.9 mmol/L Normal 3.5-5.3 [facility] Comment on above: Performed By: #### 3 4532-2 #### SYDNI Espino ([id number]) [facility] ([facility]) [address] [place] [address] Sodium [Moles/Vol] 142 mmol/L Normal 136-145 [facility] Comment on above: Performed By: #### 3 4532-2 #### SYDNI Espino ([id number]) [facility] ([facility]) [address] [place] [address] Urea nitrogen [Mass/Vol] 80 mg/dL High 6-23 [facility] Comment on above: Performed By: #### 3 4532-2 #### SYDNI Espino ([id number]) [facility] ([facility]) [address] [place] [address] Blood Gas Lactic Acid, Venou son 04-30-2024 Lactate (BldV) [Moles/Vol] 0.7 mmol/L 0.4 - 2.0 mmol/L [facility] CBC panel Auto (Bld)on 04-30 Erythrocyte distribution width (RBC) [Ratio] 15.2 % High 11.5 - 14.5 % [facility] Hematocrit (Bld) [Volume fraction] 23.9 % Low 41.0 - 52.0 % [facility] Hemoglobin (Bld) [Mass/Vol] 8.0 g/dL Low 13.5 - 17.5 g/dL [facility] Interpretation and review of laboratory results Abnormal [facility] MCH (RBC) [Entitic mass] 30.0 pg 26.0 - 34.0 pg [facility] MCHC (RBC) [Mass/Vol] 33.5 g/dL 32.0 - 36.0 g/dL [facility] MCV (RBC) [Entitic vol] 90 fL 80 - 100 fL [facility] Nucleated RBC/100 WBC (Bld) [Ratio] 0.0 % [facility] Platelets (Bld) [#/Vol] 313 10*3/uL [facility] RBC (Bld) [#/Vol] 2.67 10*6/uL Low [facility] WBC (Bld) [#/Vol] 13.3 10*3/uL High [facility] Erythrocyte distribution width (RBC) [Ratio] 15.2 % High 11.5-14.5 [facility] Comment on above: Performed By: #### 3 4531-2 #### SYDNI Espino ([id number]) [facility] ([facility]) [address] [place] [address] Hematocrit (Bld) [Volume fraction] 23.9 % Low 41.0-52.0 [facility] Comment on above: Performed By: #### 3 4531-2 #### SYDNI Espino ([id number]) [facility] ([facility]) [address] [place] [address] Hemoglobin (Bld) [Mass/Vol] 8.0 g/dL Low 13.5-17.5 [facility] Comment on above: Performed By: #### 3 4531-2 #### SYDNI Espino ([id number]) [facility] ([facility]) [address] [place] [address] MCH (RBC) [Entitic mass] 30.0 pg Normal 26.0-34.0 [facility] Comment on above: Performed By: #### 3 4531-2 #### SYDNI Espino ([id number]) [facility] ([facility]) [address] [place] [address] MCHC (RBC) [Mass/Vol] 33.5 g/dL Normal 32.0-36.0 [facility] Comment on above: Performed By: #### 3 4531-2 #### SYDNI Espino ([id number]) [facility] ([facility]) [address] [place] [address] MCV (RBC) [Entitic vol] 90 fL Normal 80-100 [facility] Comment on above: Performed By: #### 3 4532-2 #### SYDNI Espino ([id number]) [facility] ([facility]) [address] [place] [address] Nucleated RBC/100 WBC (Bld) [Ratio] 0.0 /100 WBCs Normal 0.0-0.0 [facility] Comment on above: Performed By: #### 3 4532-2 #### SYDNI Espino ([id number]) [facility] ([facility]) [address] [place] [address] Platelets (Bld) [#/Vol] 313 x10*3/uL Normal 150-450 [facility] Comment on above: Performed By: #### 3 4532-2 #### SYDNI Espino ([id number]) [facility] ([facility]) [address] [place] [address] RBC (Bld) [#/Vol] 2.67 x10*6/uL Low 4.50-5.90 [facility] Comment on above: Performed By: #### 3 4532-2 #### SYDNI Espino ([id number]) [facility] ([facility]) [address] [place] [address] WBC (Bld) [#/Vol] 13.3 x10*3/uL High 4.4-11.3 [facility] Comment on above: Performed By: #### 3 4532-2 #### SYDNI Espino ([id number]) [facility] ([facility]) [address] [place] [address] Erythrocyte distribution width (RBC) [Ratio] 15.5 % High 11.5 - 14.5 % [facility] Hematocrit (Bld) [Volume fraction] 27.3 % Low 41.0 - 52.0 % [facility] Hemoglobin (Bld) [Mass/Vol] 8.5 g/dL Low 13.5 - 17.5 g/dL [facility] Interpretation and review of laboratory results Abnormal [facility] MCH (RBC) [Entitic mass] 32.0 pg 26.0 - 34.0 pg [facility] MCHC (RBC) [Mass/Vol] 31.1 g/dL Low 32.0 - 36.0 g/dL [facility] MCV (RBC) [Entitic vol] 103 fL High 80 - 100 fL [facility] Nucleated RBC/100 WBC (Bld) [Ratio] 0.0 % [facility] Platelets (Bld) [#/Vol] 410 10*3/uL [facility] RBC (Bld) [#/Vol] 2.66 10*6/uL Low [facility] WBC (Bld) [#/Vol] 17.5 10*3/uL High [facility] Erythrocyte distribution width (RBC) [Ratio] 15.5 % High 11.5-14.5 [facility] Comment on above: Performed By: #### 3 453-2 #### SYDNI Espino ([id number]) [facility] ([facility]) [address] [place] [address] Hematocrit (Bld) [Volume fraction] 27.3 % Low 41.0-52.0 [facility] Comment on above: Performed By: #### 3 453-2 #### SYDNI Espino ([id number]) [facility] ([facility]) [address] [place] [address] Hemoglobin (Bld) [Mass/Vol] 8.5 g/dL Low 13.5-17.5 [facility] Comment on above: Performed By: #### 3 4532-2 #### SYDNI Espino ([id number]) [facility] ([facility]) [address] [place] [address] MCH (RBC) [Entitic mass] 32.0 pg Normal 26.0-34.0 [facility] Comment on above: Performed By: #### 3 453-2 #### SYDNI Espino ([id number]) [facility] ([facility]) [address] [place] [address] MCHC (RBC) [Mass/Vol] 31.1 g/dL Low 32.0-36.0 [facility] Comment on above: Performed By: #### 3 4531-2 #### SYDNI Espino ([id number]) [facility] ([facility]) [address] [place] [address] MCV (RBC) [Entitic vol] 103 fL High 80-100 [facility] Comment on above: Performed By: #### 3 4531-2 #### SYDNI Espino ([id number]) [facility] ([facility]) [address] [place] [address] Nucleated RBC/100 WBC (Bld) [Ratio] 0.0 /100 WBCs Normal 0.0-0.0 [facility] Comment on above: Performed By: #### 3 4531-2 #### SYDNI Espino ([id number]) [facility] ([facility]) [address] [place] [address] Platelets (Bld) [#/Vol] 410 x10*3/uL Normal 150-450 [facility] Comment on above: Performed By: #### 3 4531-2 #### SYDNI Espino ([id number]) [facility] ([facility]) [address] [place] [address] RBC (Bld) [#/Vol] 2.66 x10*6/uL Low 4.50-5.90 [facility] Comment on above: Performed By: #### 3 4531-2 #### SYDNI Espino ([id number]) [facility] ([facility]) [address] [place] [address] WBC (Bld) [#/Vol] 17.5 x10*3/uL High 4.4-11.3 [facility] Comment on above: Performed By: #### 3 4531-2 #### SYDNI Espino ([id number]) [facility] ([facility]) [address] [place] [address] Gas and Carbon monoxide and Electrolytes panel (BldA)Ordered By: Chana Bah on 04-30-2024 Anion gap 4 (BldA) [Moles/Vol] 8 Low [facility] Base excess Calc (Bld) [Moles/Vol] 9.2 mmol/L High -2.0 - 3.0 mmol/L [facility] Calcium.ionized (BldA) [Moles/Vol] 1.15 mmol/L 1.10 - 1.33 mmol/L [facility] Chloride (BldA) [Moles/Vol] 102 mmol/L 98 - 107 mmol/L [facility] CO2 (Bld) [Partial pressure] 48 mm[Hg] High [facility] Glucose [Mass/Vol] 182 mg/dL High 74 - 99 mg/dL [facility] HCO3 (Bld) [Moles/Vol] 34.1 mmol/L High 22.0 - 26.0 mmol/L [facility] Hematocrit Est (Bld) [Volume fraction] 25.0 % Low 41.0 - 52.0 % [facility] Hemoglobin (Bld) [Mass/Vol] 8.4 g/dL Low 13.5 - 17.5 g/dL [facility] Inhaled oxygen concentration 60 % [facility] Interpretation and review of laboratory results Abnormal [facility] Lactate (BldA) [Moles/Vol] 2.1 mmol/L High 0.4 - 2.0 mmol/L [facility] Oxygen (Bld) [Partial pressure] 227 mm[Hg] High [facility] Oxyhemoglobin (BldA) [Mass fraction] 98.3 % High 94.0 - 98.0 % [facility] pH (Bld) 7.46 [pH] High 7.38 - 7.42 pH [facility] Potassium (BldA) [Moles/Vol] 3.1 mmol/L Low 3.5 - 5.3 mmol/L [facility] Sodium (BldA) [Moles/Vol] 141 mmol/L 136 - 145 mmol/L [facility] Gas and Carbon monoxide and Electrolytes panel (BldA)on 04-30-2024 Anion gap 4 (BldA) [Moles/Vol] [facility] Base excess Calc (Bld) [Moles/Vol] 6.8 mmol/L High -2.0 - 3.0 mmol/L [facility] Calcium.ionized (BldA) [Moles/Vol] 1.05 mmol/L Low 1.10 - 1.33 mmol/L [facility] Chloride (BldA) [Moles/Vol] [facility] CO2 (Bld) [Partial pressure] 51 mm[Hg] High [facility] Glucose [Mass/Vol] 240 mg/dL High 74 - 99 mg/dL [facility] HCO3 (Bld) [Moles/Vol] 32.3 mmol/L High 22.0 - 26.0 mmol/L [facility] Hematocrit Est (Bld) [Volume fraction] 25.0 % Low 41.0 - 52.0 % [facility] Hemoglobin (Bld) [Mass/Vol] 8.2 g/dL Low 13.5 - 17.5 g/dL [facility] Inhaled oxygen concentration 21 % [facility] Interpretation and review of laboratory results Abnormal [facility] Lactate (BldA) [Moles/Vol] 1.9 mmol/L 0.4 - 2.0 mmol/L [facility] Oxygen (Bld) [Partial pressure] 64 mm[Hg] Low [facility] Oxyhemoglobin (BldA) [Mass fraction] 91.4 % Low 94.0 - 98.0 % [facility] pH (Bld) 7.41 [pH] 7.38 - 7.42 pH [facility] Potassium (BldA) [Moles/Vol] 3.2 mmol/L Low 3.5 - 5.3 mmol/L [facility] Sodium (BldA) [Moles/Vol] 140 mmol/L 136 - 145 mmol/L [facility] Anion gap 4 (BldA) [Moles/Vol] Normal [facility] Comment on above: Result Comment: NO R ESULT Performed By: #### 3 4532-2 #### SYDNI Espino ([id number]) [facility] ([facility]) [address] [place] [address] Base excess Calc (Bld) [Moles/Vol] 6.8 mmol/L High -2.0-3.0 [facility] Comment on above: Performed By: #### 3 4531-2 #### SYDNI Espino ([id number]) [facility] ([facility]) [address] [place] [address] Calcium.ionized (BldA) [Moles/Vol] 1.05 mmol/L Low 1.10-1.33 [facility] Comment on above: Performed By: #### 3 4531-2 #### SYDNI Espino ([id number]) [facility] ([facility]) [address] [place] [address] Chloride (BldA) [Moles/Vol] Normal [facility] Comment on above: Result Comment: NO R ESULT Performed By: #### 3 4531-2 #### SYDNI Espino ([id number]) [facility] ([facility]) [address] [place] [address] CO2 (Bld) [Partial pressure] 51 mm Hg High 38-42 [facility] Comment on above: Performed By: #### 3 4531-2 #### SYDNI Espino ([id number]) [facility] ([facility]) [address] [place] [address] Glucose [Mass/Vol] 240 mg/dL High 74-99 [facility] Comment on above: Performed By: #### 3 4531-2 #### SYDNI Espino ([id number]) [facility] ([facility]) [address] [place] [address] HCO3 (Bld) [Moles/Vol] 32.3 mmol/L High 22.0-26.0 [facility] Comment on above: Performed By: #### 3 4531-2 #### SYDNI Espino ([id number]) [facility] ([facility]) [address] [place] [address] Hematocrit Est (Bld) [Volume fraction] 25.0 % Low 41.0-52.0 [facility] Comment on above: Performed By: #### 3 4531-2 #### SYDNI Espino ([id number]) [facility] ([facility]) [address] [place] [address] Hemoglobin (Bld) [Mass/Vol] 8.2 g/dL Low 13.5-17.5 [facility] Comment on above: Performed By: #### 3 4531-2 #### SYDNI Espino ([id number]) [facility] ([facility]) [address] [place] [address] Inhaled oxygen concentration 21 % Normal [facility] Comment on above: Performed By: #### 3 4531-2 #### SYDNI Espino ([id number]) [facility] ([facility]) [address] [place] [address] Lactate (BldA) [Moles/Vol] 1.9 mmol/L Normal 0.4-2.0 [facility] Comment on above: Performed By: #### 3 4531-2 #### SYDNI Espino ([id number]) [facility] ([facility]) [address] [place] [address] Oxygen (Bld) [Partial pressure] 64 mm Hg Low 85-95 [facility] Comment on above: Performed By: #### 3 4531-2 #### SYDNI Espino ([id number]) [facility] ([facility]) [address] [place] [address] Oxyhemoglobin (BldA) [Mass fraction] 91.4 % Low 94.0-98.0 [facility] Comment on above: Performed By: #### 3 4531-2 #### SYDNI Espino ([id number]) [facility] ([facility]) [address] [place] [address] pH (Bld) 7.41 [pH] Normal 7.38-7.42 [facility] Comment on above: Performed By: #### 3 4531-2 #### SYDNI Espino ([id number]) [facility] ([facility]) [address] [place] [address] Potassium (BldA) [Moles/Vol] 3.2 mmol/L Low 3.5-5.3 [facility] Comment on above: Performed By: #### 3 4531-2 #### SYDNI Espino ([id number]) [facility] ([facility]) [address] [place] [address] Sodium (BldA) [Moles/Vol] 140 mmol/L Normal 136-145 [facility] Comment on above: Performed By: #### 3 4531-2 #### SYDNI Espino ([id number]) [facility] ([facility]) [address] [place] [address] Anion gap 4 (BldA) [Moles/Vol] 8 mmo/L Low 10-25 [facility] Comment on above: Performed By: #### 3 4531-2 #### SYDNI Espino ([id number]) [facility] ([facility]) [address] [place] [address] Base excess Calc (Bld) [Moles/Vol] 9.2 mmol/L High -2.0-3.0 [facility] Comment on above: Performed By: #### 3 4531-2 #### SYDNI Espino ([id number]) [facility] ([facility]) [address] [place] [address] Calcium.ionized (BldA) [Moles/Vol] 1.15 mmol/L Normal 1.10-1.33 [facility] Comment on above: Performed By: #### 3 4531-2 #### SYDNI Espino ([id number]) [facility] ([facility]) [address] [place] [address] Chloride (BldA) [Moles/Vol] 102 mmol/L Normal 98-107 [facility] Comment on above: Performed By: #### 3 4531-2 #### SYDNI Espino ([id number]) [facility] ([facility]) [address] [place] [address] CO2 (Bld) [Partial pressure] 48 mm Hg High 38-42 [facility] Comment on above: Performed By: #### 3 4532-2 #### SYDNI Espino ([id number]) [facility] ([facility]) [address] [place] [address] Glucose [Mass/Vol] 182 mg/dL High 74-99 [facility] Comment on above: Performed By: #### 3 453-2 #### SYDNI Espino ([id number]) [facility] ([facility]) [address] [place] [address] HCO3 (Bld) [Moles/Vol] 34.1 mmol/L High 22.0-26.0 [facility] Comment on above: Performed By: #### 3 453-2 #### SYDNI Espino ([id number]) [facility] ([facility]) [address] [place] [address] Hematocrit Est (Bld) [Volume fraction] 25.0 % Low 41.0-52.0 [facility] Comment on above: Performed By: #### 3 453-2 #### SYDNI Espino ([id number]) [facility] ([facility]) [address] [place] [address] Hemoglobin (Bld) [Mass/Vol] 8.4 g/dL Low 13.5-17.5 [facility] Comment on above: Performed By: #### 3 4532-2 #### SYDNI Espino ([id number]) [facility] ([facility]) [address] [place] [address] Inhaled oxygen concentration 60 % Normal [facility] Comment on above: Performed By: #### 3 4532-2 #### SYDNI Espino ([id number]) [facility] ([facility]) [address] [place] [address] Lactate (BldA) [Moles/Vol] 2.1 mmol/L High 0.4-2.0 [facility] Comment on above: Performed By: #### 3 4531-2 #### SYDNI Espino ([id number]) [facility] ([facility]) [address] [place] [address] Oxygen (Bld) [Partial pressure] 227 mm Hg High 85-95 [facility] Comment on above: Performed By: #### 3 4531-2 #### SYDNI Espino ([id number]) [facility] ([facility]) [address] [place] [address] Oxyhemoglobin (BldA) [Mass fraction] 98.3 % High 94.0-98.0 [facility] Comment on above: Performed By: #### 3 4531-2 #### SYDNI Espino ([id number]) [facility] ([facility]) [address] [place] [address] pH (Bld) 7.46 [pH] High 7.38-7.42 [facility] Comment on above: Performed By: #### 3 4531-2 #### SYDNI Espino ([id number]) [facility] ([facility]) [address] [place] [address] Potassium (BldA) [Moles/Vol] 3.1 mmol/L Low 3.5-5.3 [facility] Comment on above: Performed By: #### 3 4531-2 #### SYDNI Espino ([id number]) [facility] ([facility]) [address] [place] [address] Sodium (BldA) [Moles/Vol] 141 mmol/L Normal 136-145 [facility] Comment on above: Performed By: #### 3 4531-2 #### SYDNI Espino ([id number]) [facility] ([facility]) [address] [place] [address] Glucose Test strip manual (B ld) [Mass/Vol]on 04-30-2024 Glucose [Mass/Vol] 145 mg/dL High 74 - 99 mg/dL [facility] Interpretation and review of laboratory results Abnormal [facility] Glucose [Mass/Vol] 145 mg/dL High 74-99 [facility] Comment on above: Performed By: #### 3 4532-2 #### SYDNI Espino ([id number]) [facility] ([facility]) [address] [place] [address] Glucose [Mass/Vol] 136 mg/dL High 74 - 99 mg/dL [facility] Interpretation and review of laboratory results Abnormal [facility] Glucose [Mass/Vol] 136 mg/dL High 74-99 [facility] Comment on above: Performed By: #### 3 4532-2 #### SYDNI Espino ([id number]) [facility] ([facility]) [address] [place] [address] Lactateon 04-30-2024 Lactate (BldV) [Moles/Vol] 0.7 mmol/L Normal 0.4-2.0 [facility] Comment on above: Performed By: #### 3 4532-2 #### SYDNI Espino ([id number]) [facility] ([facility]) [address] [place] [address] Lactate (BldV) [Moles/Vol]on 04-30-2024 Interpretation and review of laboratory results Normal [facility] Magnesiumon 04-30-2024 Magnesium [Mass/Vol] 1.90 mg/dL 1.60 - 2.40 mg/dL [facility] Magnesium [Mass/Vol] 1.90 mg/dL Normal 1.60-2.40 [facility] Comment on above: Performed By: #### 3 4532-2 #### SYDNI Espino ([id number]) [facility] ([facility]) [address] [place] [address] Magnesium [Mass/Vol]on 04-30 Interpretation and review of laboratory results Normal [facility] No Panel Informationon 04-30 [facility] PT and aPTT panel Coag (PPP) on 04-30-2024 aPTT Coag (PPP) [Time] 29 s [facility] INR Coag (PPP) [Relative time] 1.0 {INR} 0.9 - 1.1 [facility] Interpretation and review of laboratory results Normal [facility] PT Coag (PPP) [Time] 10.9 s [facility] aPTT Coag (PPP) [Time] 29 s Normal 27-38 [facility] Comment on above: Order Comment: The A PTT is no longer used for monitoring Unfractionated Heparin Therapy. For monitoring Heparin Therapy, use the Heparin Assay. Performed By: #### 3 4532-2 #### SYDNI Espino ([id number]) [facility] ([facility]) [address] [place] [address] INR Coag (PPP) [Relative time] 1.0 Normal 0.9-1.1 [facility] Comment on above: Order Comment: The A PTT is no longer used for monitoring Unfractionated Heparin Therapy. For monitoring Heparin Therapy, use the Heparin Assay. Performed By: #### 3 4532-2 #### SYDNI Espino ([id number]) [facility] ([facility]) [address] [place] [address] PT Coag (PPP) [Time] 10.9 s Normal 9.8-12.8 [facility] Comment on above: Order Comment: The A PTT is no longer used for monitoring Unfractionated Heparin Therapy. For monitoring Heparin Therapy, use the Heparin Assay. Performed By: #### 3 4532-2 #### SYDNI Espino ([id number]) [facility] ([facility]) [address] [place] [address] RF Upper gastrointestinal tr act and Small bowel Single view W contrast Ivan 04-30-2024 [facility] MM[facility]AL [facility] MM[facility]AL [facility] Work Phone: RF Upper gastrointestinal tr act and Small bowel Single view W contrast POOrdered By: Matthew Narvaez on 04-30-2024 [facility] Work Phone: Renal function 2000 panelon 04-30-2024 Albumin BCP dye [Mass/Vol] 2.7 g/dL Low 3.4 - 5.0 g/dL [facility] Anion gap [Moles/Vol] 15 mmol/L 10 - 20 mmol/L [facility] Calcium [Mass/Vol] 7.3 mg/dL Low 8.6 - 10. 6 mg/dL [facility] Chloride [Moles/Vol] 102 mmol/L 98 - 10 7 mmol/L [facility] CO2 [Moles/Vol] 32 mmol/L 21 - 32 mmol/L [facility] Creatinine [Mass/Vol] 2.03 mg/dL High 0.50 - 1.30 mg/dL [facility] GFR/1.73 sq M.predicted among non-blacks MDRD (S/P/Bld) [Vol rate/Area] 34 mL/min/{1.73_m2} Low - PINF [facility] Glucose [Mass/Vol] 253 mg/dL High 74 - 99 mg/dL [facility] Interpretation and review of laboratory results Abnormal [facility] Phosphate [Mass/Vol] 5.0 mg/dL High 2.5 - 4 .9 mg/dL [facility] Potassium [Moles/Vol] 3.5 mmol/L 3.5 - 5.3 mmol/L [facility] Sodium [Moles/Vol] 145 mmol/L 136 - 145 mmol/L [facility] Urea nitrogen [Mass/Vol] 60 mg/dL High 6 - 23 mg/dL [facility] Albumin BCP dye [Mass/Vol] 2.7 g/dL Low 3.4-5.0 [facility] Comment on above: Performed By: #### 3 4532-2 #### SYDNI Espino ([id number]) [facility] ([facility]) [address] [place] [address] Anion gap [Moles/Vol] 15 mmol/L Normal 10-20 [facility] Comment on above: Performed By: #### 3 4532-2 #### SYDNI Espino ([id number]) [facility] ([facility]) [address] [place] [address] Calcium [Mass/Vol] 7.3 mg/dL Low 8.6-10.6 [facility] Comment on above: Performed By: #### 3 4532-2 #### SYDNI Espino ([id number]) [facility] ([facility]) [address] [place] [address] Chloride [Moles/Vol] 102 mmol/L Normal 98-107 [facility] Comment on above: Performed By: #### 3 4532-2 #### SYDNI Espino ([id number]) [facility] ([facility]) [address] [place] [address] CO2 [Moles/Vol] 32 mmol/L Normal 21-32 [facility] Comment on above: Performed By: #### 3 4532-2 #### SYDNI Espino ([id number]) [facility] ([facility]) [address] [place] [address] Creatinine [Mass/Vol] 2.03 mg/dL High 0.50-1.30 [facility] Comment on above: Performed By: #### 3 4532-2 #### SYDNI Espino ([id number]) [facility] ([facility]) [address] [place] [address] Glomerular filtration rate/1.73 sq M.predicted 34 mL/min/1.73m*2 Low >60 [facility] Comment on above: Result Comment: Calc ulations of estimated GFR are performed using the 2020 CKD-EPI Study Refit equation without the race variable for the IDMS-Traceable creatinine methods. https://jasn.asnjournals.org/content//ASN.0456653 988 Performed By: #### 3 4532-2 #### SYDNI Espino ([id number]) [facility] ([facility]) [address] [place] [address] Glucose [Mass/Vol] 253 mg/dL High 74-99 [facility] Comment on above: Performed By: #### 3 4532-2 #### SYDNI Espino ([id number]) [facility] ([facility]) [address] [place] [address] Phosphate [Mass/Vol] 5.0 mg/dL High 2.5-4.9 [facility] Comment on above: Result Comment: The performance characteristics of phosphorus testing in heparinized plasma have been validated by the individual laboratory site where testing is performed. Testing on heparinized plasma is not approved by the FDA; however, such approval is not necessary. Performed By: #### 3 4532-2 #### SYDNI Espino ([id number]) [facility] ([facility]) [address] [place] [address] Potassium [Moles/Vol] 3.5 mmol/L Normal 3.5-5.3 [facility] Comment on above: Performed By: #### 3 4532-2 #### SYDNI Espino ([id number]) [facility] ([facility]) [address] [place] [address] Sodium [Moles/Vol] 145 mmol/L Normal 136-145 [facility] Comment on above: Performed By: #### 3 4532-2 #### SYDNI Espino ([id number]) [facility] ([facility]) [address] [place] [address] Urea nitrogen [Mass/Vol] 60 mg/dL High 6-23 [facility] Comment on above: Performed By: #### 3 4532-2 #### SYDNI Espino ([id number]) [facility] ([facility]) [address] [place] [address] Bacteria identified Cx Nom ( Bld)on 04-29-2024 Interpretation and review of laboratory results Normal [facility] Blood type and Indirect anti body screen panel (Bld)on 04-29-2024 ABO group Nom (Bld) A [facility] Blood group antibody screen Ql Negative [facility] D Ag Ql (Bld) Positive [facility] ABO group Nom (Bld) A Normal [facility] Comment on above: Performed By: #### 3 4532-2 #### SYDNI Espino ([id number]) [facility] ([facility]) [address] [place] [address] Blood group antibody screen Ql Negative [facility] Comment on above: Performed By: #### 3 4532-2 #### SYDNI Espino ([id number]) [facility] ([facility]) [address] [place] [address] D Ag Ql (Bld) Positive [facility] Comment on above: Performed By: #### 3 4532-2 #### SYDNI Espino ([id number]) [facility] ([facility]) [address] [place] [address] CBC panel Auto (Bld)on 04-29 Erythrocyte distribution width (RBC) [Ratio] 15.1 % High 11.5 - 14.5 % [facility] Hematocrit (Bld) [Volume fraction] 35.7 % Low 41.0 - 52.0 % [facility] Hemoglobin (Bld) [Mass/Vol] 11.2 g/dL Low 13.5 - 17.5 g/dL [facility] Interpretation and review of laboratory results Abnormal [facility] MCH (RBC) [Entitic mass] 28.6 pg 26.0 - 34.0 pg [facility] MCHC (RBC) [Mass/Vol] 31.4 g/dL Low 32.0 - 36.0 g/dL [facility] MCV (RBC) [Entitic vol] 91 fL 80 - 100 fL [facility] Nucleated RBC/100 WBC (Bld) [Ratio] 0.0 % [facility] Platelets (Bld) [#/Vol] 405 10*3/uL [facility] RBC (Bld) [#/Vol] 3.91 10*6/uL Low [facility] WBC (Bld) [#/Vol] 17.6 10*3/uL High [facility] Erythrocyte distribution width (RBC) [Ratio] 15.1 % High 11.5-14.5 [facility] Comment on above: Performed By: #### 3 4531-2 #### SYDNI Espino ([id number]) [facility] ([facility]) [address] [place] [address] Hematocrit (Bld) [Volume fraction] 35.7 % Low 41.0-52.0 [facility] Comment on above: Performed By: #### 3 4531-2 #### SYDNI Espino ([id number]) [facility] ([facility]) [address] [place] [address] Hemoglobin (Bld) [Mass/Vol] 11.2 g/dL Low 13.5-17.5 [facility] Comment on above: Performed By: #### 3 4531-2 #### SYDNI Espino ([id number]) [facility] ([facility]) [address] [place] [address] MCH (RBC) [Entitic mass] 28.6 pg Normal 26.0-34.0 [facility] Comment on above: Performed By: #### 3 4531-2 #### SYDNI Espino ([id number]) [facility] ([facility]) [address] [place] [address] MCHC (RBC) [Mass/Vol] 31.4 g/dL Low 32.0-36.0 [facility] Comment on above: Performed By: #### 3 4531-2 #### SYDNI Espino ([id number]) [facility] ([facility]) [address] [place] [address] MCV (RBC) [Entitic vol] 91 fL Normal 80-100 [facility] Comment on above: Performed By: #### 3 4531-2 #### SYDNI Espino ([id number]) [facility] ([facility]) [address] [place] [address] Nucleated RBC/100 WBC (Bld) [Ratio] 0.0 /100 WBCs Normal 0.0-0.0 [facility] Comment on above: Performed By: #### 3 4531-2 #### SYDNI Espino ([id number]) [facility] ([facility]) [address] [place] [address] Platelets (Bld) [#/Vol] 405 x10*3/uL Normal 150-450 [facility] Comment on above: Performed By: #### 3 4531-2 #### SYDNI Espino ([id number]) [facility] ([facility]) [address] [place] [address] RBC (Bld) [#/Vol] 3.91 x10*6/uL Low 4.50-5.90 [facility] Comment on above: Performed By: #### 3 4531-2 #### SYDNI Espino ([id number]) [facility] ([facility]) [address] [place] [address] WBC (Bld) [#/Vol] 17.6 x10*3/uL High 4.4-11.3 [facility] Comment on above: Performed By: #### 3 4531-2 #### SYDNI Espino ([id number]) [facility] ([facility]) [address] [place] [address] ECG 12 Leadon 04-29-2024 Atrial Rate 101 BPM [facility] Work Phone: [phone] P [place] 73 degrees [facility] Work Phone: [phone] P Offset 209 ms [facility] Work Phone: [phone] P Onset 155 ms [facility] Work Phone: [phone] TX Interval 132 ms [facility] Work Phone: [phone] Q Onset 221 ms [facility] Work Phone: [phone] QRS Count 17 beats [facility] Work Phone: [phone] QRS Duration 74 ms [facility] Work Phone: [phone] QT Interval 358 ms [facility] Work Phone: [phone] QTC Calculation(Bazett) 464 [facility] Work Phone: QTC [place] [address] [facility] Work Phone: [phone] R [place] 33 degrees [facility] Work Phone: [phone] T [place] 70 degrees [facility] Work Phone: [phone] T Offset 400 ms [facility] Work Phone: [phone] Ventricular Rate 101 BPM [facility] Work Phone: [phone] MUSE [facility] Work Phone: [phone] [facility] Work Phone: [phone] Glucose Test strip manual (B ld) [Mass/Vol]on 04-29-2024 Glucose [Mass/Vol] 147 mg/dL High 74 - 99 mg/dL [facility] Interpretation and review of laboratory results Abnormal [facility] Glucose [Mass/Vol] 147 mg/dL High 74-99 [facility] Comment on above: Performed By: #### 3 4532-2 #### SYDNI Espino ([id number]) [facility] ([facility]) [address] [place] [address] Glucose [Mass/Vol] 166 mg/dL High 74 - 99 mg/dL [facility] Interpretation and review of laboratory results Abnormal [facility] Glucose [Mass/Vol] 166 mg/dL High 74-99 [facility] Comment on above: Performed By: #### 3 4532-2 #### SYDNI Espino ([id number]) [facility] ([facility]) [address] [place] [address] Laboratory - Microbiology an d Antimicrobial susceptibilityon 04-29-2024 Bacteria identified Cx Nom (Bld) No growth at 4 days - FINAL REPORT [facility] RF Upper gastrointestinal tr act and Small bowel Single view W contrast Ivan 04-29-2024 Radiology Study observation (narrative) [facility] Work Phone: XR ABDOMEN 1 VIEWon 04-29-20 24 XR ABDOMEN 1 VIEW Interpreted By: Jose Flores, STUDY: XR ABDOMEN 1 VIEW; 04/29/2024 2:39 pm INDICATION: Signs/Symptoms:contrast follow through. COMPARISON: 04/29/2024 at 133 hours p.m. ACCESSION NUMBER(S): [id number] ORDERING CLINICIAN: JARED GASPAR FINDINGS: Enterogastric tube is in the stomach fundus. Contrast is seen in the small bowel and colon. The largest dilated segments are distal ileum in position. There is again contrast in the ascending colon and mid transverse colon slightly increased from earlier exam. Contrast is progressed into the descending colon significantly. Recommend follow-up in 8 hours or as clinically indicated. Nonobstructive bowel gas pattern. Limited evaluation of pneumoperitoneum on supine imaging, however no gross evidence of free air is noted. Visualized lungs are clear. Osseous structures demonstrate no acute bony changes. IMPRESSION: 1. Mild progression of contrast into the mid to distal transverse colon distribution. Findings consistent with high-grade small bowel obstruction probable distal ileum in location. Consider follow-up in approximately 8 hours. Or as clinically indicated. MACRO: None Signed by: Jose Morales 04/29/2024 3:44 PM Dictation workstation: [employer] [facility] XR ABDOMEN 1 VIEW Interpreted By: Jose Flores, STUDY: XR ABDOMEN 1 VIEW; 04/29/2024 1:34 pm INDICATION: Signs/Symptoms:contrast follow through. COMPARISON: 04/26/2024 ACCESSION NUMBER(S): [id number] ORDERING CLINICIAN: JARED GASPAR FINDINGS: Enterogastric tube in fundus of the stomach. Patient is status post oral contrast ingestion. Continued dilated small bowel pattern no significant colonic distention at this time. Contrast progresses to the transverse colon proximal descending colon. Limited evaluation of pneumoperitoneum on supine imaging, however no gross evidence of free air is noted. High-grade small-bowel partial obstruction is suggested. Visualized lungs are clear. Osseous structures demonstrate no acute bony changes. IMPRESSION: 1. Suspect high-grade small bowel partial obstruction. Consider CT for further evaluation as clinically indicated. MACRO: None Signed by: Jose Morales 04/29/2024 3:05 PM Dictation workstation: [employer] [facility] XR Abdomen Single viewon UH MMODAL UH MMODAL [facility] Work Phone: [facility] Work Phone: UH MMODAL UH MMODAL [facility] Work Phone: Radiology Study observation (narrative) [facility] Work Phone: Radiology Study observation (narrative) [facility] Work Phone: XR Abdomen Single viewOrdere d By: Jose Gonzalez on 04-29-2024 [facility] Work Phone: CBC panel Auto (Bld)on 04-28 Erythrocyte distribution width (RBC) [Ratio] 15.2 % High 11.5 - 14.5 % [facility] Hematocrit (Bld) [Volume fraction] 30.8 % Low 41.0 - 52.0 % [facility] Hemoglobin (Bld) [Mass/Vol] 9.8 g/dL Low 13.5 - 17.5 g/dL [facility] Interpretation and review of laboratory results Abnormal [facility] MCH (RBC) [Entitic mass] 29.1 pg 26.0 - 34.0 pg [facility] MCHC (RBC) [Mass/Vol] 31.8 g/dL Low 32.0 - 36.0 g/dL [facility] MCV (RBC) [Entitic vol] 91 fL 80 - 100 fL [facility] Nucleated RBC/100 WBC (Bld) [Ratio] 0.0 % [facility] Platelets (Bld) [#/Vol] 306 10*3/uL [facility] RBC (Bld) [#/Vol] 3.37 10*6/uL Low [facility] WBC (Bld) [#/Vol] 13.1 10*3/uL High [facility] Erythrocyte distribution width (RBC) [Ratio] 15.2 % High 11.5-14.5 [facility] Comment on above: Performed By: #### 2 571-8 #### SYDNI Espino ([id number]) [facility] ([facility]) [address] [place] [address] Hematocrit (Bld) [Volume fraction] 30.8 % Low 41.0-52.0 [facility] Comment on above: Performed By: #### 2 571-8 #### SYDNI Espino ([id number]) [facility] ([facility]) [address] [place] [address] Hemoglobin (Bld) [Mass/Vol] 9.8 g/dL Low 13.5-17.5 [facility] Comment on above: Performed By: #### 2 571-8 #### SYDNI Espino ([id number]) [facility] ([facility]) [address] [place] [address] MCH (RBC) [Entitic mass] 29.1 pg Normal 26.0-34.0 [facility] Comment on above: Performed By: #### 2 571-8 #### SYDNI Espino ([id number]) [facility] ([facility]) [address] [place] [address] MCHC (RBC) [Mass/Vol] 31.8 g/dL Low 32.0-36.0 [facility] Comment on above: Performed By: #### 2 571-8 #### SYDNI Espino ([id number]) [facility] ([facility]) [address] [place] [address] MCV (RBC) [Entitic vol] 91 fL Normal 80-100 [facility] Comment on above: Performed By: #### 2 571-8 #### SYDNI Espino ([id number]) [facility] ([facility]) [address] [place] [address] Nucleated RBC/100 WBC (Bld) [Ratio] 0.0 /100 WBCs Normal 0.0-0.0 [facility] Comment on above: Performed By: #### 2 571-8 #### SYDNI Espino ([id number]) [facility] ([facility]) [address] [place] [address] Platelets (Bld) [#/Vol] 306 x10*3/uL Normal 150-450 [facility] Comment on above: Performed By: #### 2 571-8 #### SYDNI GARZAMOTZER L ([id number]) [facility] ([facility]) [address] [place] [address] RBC (Bld) [#/Vol] 3.37 x10*6/uL Low 4.50-5.90 [facility] Comment on above: Performed By: #### 2 571-8 #### SYDNI SCHMOTZER L ([id number]) [facility] ([facility]) [address] [place] [address] WBC (Bld) [#/Vol] 13.1 x10*3/uL High 4.4-11.3 [facility] Comment on above: Performed By: #### 2 571-8 #### SYDNI MANER L ([id number]) [facility] ([facility]) [address] [place] [address] FL UPPER GI SINGLE CONTRAST W SMALL BOWEL FOLLOW THROUGHon 04-28-2024 FL UPPER GI SINGLE CONTRAST W SMALL BOWEL FOLLOW THROUGH Interpreted By: Matthew Narvaez and Dulla Kireeti STUDY: FL UPPER GI SINGLE CONTRAST W SMALL BOWEL FOLLOW THROUGH; 04/29/2024 12:35 pm INDICATION: Signs/Symptoms:Concern for obstruction or delayed motility. COMPARISON: CT abdomen pelvis dated 04/22/2024 ACCESSION NUMBER(S): [id number] ORDERING CLINICIAN: JARED GASPAR TECHNIQUE: An initial radiograph of the abdomen and pelvis was obtained. This was followed by injection through the NG tube approximately 180 mL of contrast Gastrografin. Multiple dynamic and static fluoroscopic images of the esophagus, stomach and duodenum were obtained. Delayed static images of the abdomen in the posteroanterior projection were obtained at 5, 10, 15, 30, and 45 minute intervals until contrast was observed to reach the ileum. Total fluoroscopy time was 1.3 minutes. FINDINGS: Initial strip catcher image demonstrates nonobstructive bowel gas pattern. NG tube within the stomach. There is contrast located within the ascending, transverse, and descending colon from contrast study on 04/22/2024. The stomach was well visualized and unremarkable in appearance. The Gastrografin passed readily through the pylorus into a normal duodenal bulb and C-loop. The duodenal-jejunal junction appears normally positioned and grossly unremarkable. These is a duodenal diverticula present. The small bowel is of normal caliber with no mucosal thickening appreciated. A normal feathery appearance is observed to the jejunum. The normal smooth appearance of the ileum is observed. There is no evidence for annular constricting lesions, large intraluminal mass lesion, or mucosal ulceration. Small bowel loops are observed to separate normally without evidence of mass clumping. Transit of contrast into the colon was not identified on this study at the time of ending. IMPRESSION: 1. There is passage of contrast into the ileum without definite extension to the large bowel on the current series of images. Differential considerations include ileus or distal small bowel obstruction. Continued follow-up by portable abdominal radiographs is recommended. 2. There is evidence of a large duodenal diverticula. I personally reviewed the images/study and I agree with the findings as stated by Adina Vallecillo MD, PGY-2 this study was interpreted at [place], [place]. MACRO: None Signed by: Matthew Narvaez 04/30/2024 9:14 AM Dictation workstation: [id number] Normal [facility] Glucose Test strip manual (B ld) [Mass/Vol]on 04-28-2024 Glucose [Mass/Vol] 143 mg/dL High 74 - 99 mg/dL [facility] Interpretation and review of laboratory results Abnormal [facility] Glucose [Mass/Vol] 143 mg/dL High 74-99 [facility] Comment on above: Performed By: #### 3 4532-2 #### SYDNI Espino ([id number]) [facility] ([facility]) [address] [place] [address] Glucose [Mass/Vol] 144 mg/dL High 74 - 99 mg/dL [facility] Interpretation and review of laboratory results Abnormal [facility] Glucose [Mass/Vol] 144 mg/dL High 74-99 [facility] Comment on above: Performed By: #### 3 4532-2 #### SYDNI Espino ([id number]) [facility] ([facility]) [address] [place] [address] Glucose [Mass/Vol] 159 mg/dL High 74 - 99 mg/dL [facility] Interpretation and review of laboratory results Abnormal [facility] Glucose [Mass/Vol] 159 mg/dL High 74-99 [facility] Comment on above: Performed By: #### 3 4532-2 #### SYDNI Espino ([id number]) [facility] ([facility]) [address] [place] [address] Glucose [Mass/Vol] 159 mg/dL High 74 - 99 mg/dL [facility] Interpretation and review of laboratory results Abnormal [facility] Glucose [Mass/Vol] 159 mg/dL High 74-99 [facility] Comment on above: Performed By: #### 3 4532-2 #### SYDNI Espino ([id number]) [facility] ([facility]) [address] [place] [address] Magnesiumon 04-28-2024 Magnesium [Mass/Vol] 2.21 mg/dL 1.60 - 2.40 mg/dL [facility] Magnesium [Mass/Vol] 2.21 mg/dL Normal 1.60-2.40 [facility] Comment on above: Performed By: #### 2 571-8 #### SYDNI Espino ([id number]) [facility] ([facility]) [address] [place] [address] Magnesium [Mass/Vol]on 04-28 Interpretation and review of laboratory results Normal [facility] No Panel Informationon 04-28 [facility] Renal function 2000 panelon 04-28-2024 Albumin BCP dye [Mass/Vol] 2.6 g/dL Low 3.4 - 5.0 g/dL [facility] Anion gap [Moles/Vol] 12 mmol/L 10 - 20 mmol/L [facility] Calcium [Mass/Vol] 7.8 mg/dL Low 8.6 - 10. 6 mg/dL [facility] Chloride [Moles/Vol] 101 mmol/L 98 - 10 7 mmol/L [facility] CO2 [Moles/Vol] 35 mmol/L High 21 - 32 mmol/L [facility] Creatinine [Mass/Vol] 1.73 mg/dL High 0.50 - 1.30 mg/dL [facility] GFR/1.73 sq M.predicted among non-blacks MDRD (S/P/Bld) [Vol rate/Area] 41 mL/min/{1.73_m2} Low - PINF [facility] Glucose [Mass/Vol] 121 mg/dL High 74 - 99 mg/dL [facility] Interpretation and review of laboratory results Abnormal [facility] Phosphate [Mass/Vol] 3.3 mg/dL 2.5 - 4 .9 mg/dL [facility] Potassium [Moles/Vol] 3.5 mmol/L 3.5 - 5.3 mmol/L [facility] Sodium [Moles/Vol] 144 mmol/L 136 - 145 mmol/L [facility] Urea nitrogen [Mass/Vol] 51 mg/dL High 6 - 23 mg/dL [facility] Albumin BCP dye [Mass/Vol] 2.6 g/dL Low 3.4-5.0 [facility] Comment on above: Performed By: #### 2 571-8 #### SYDNI Espino ([id number]) [facility] ([facility]) [id number] [place] [address] 59478 Anion gap [Moles/Vol] 12 mmol/L Normal 10-20 [facility] Comment on above: Performed By: #### 2 571-8 #### SYDNI Espino ([id number]) [facility] ([facility]) [address] [place] [address] Calcium [Mass/Vol] 7.8 mg/dL Low 8.6-10.6 [facility] Comment on above: Performed By: #### 2 571-8 #### SYDNI Espino ([id number]) [facility] ([facility]) [id number] [place] [address] 78518 Chloride [Moles/Vol] 101 mmol/L Normal 98-107 [facility] Comment on above: Performed By: #### 2 571-8 #### SYDNI Espino ([id number]) [facility] ([facility]) [address] [place] [address] CO2 [Moles/Vol] 35 mmol/L High 21-32 [facility] Comment on above: Performed By: #### 2 571-8 #### SYDNI Espino ([id number]) [facility] ([facility]) [address] [place] [address] Creatinine [Mass/Vol] 1.73 mg/dL High 0.50-1.30 [facility] Comment on above: Performed By: #### 2 571-8 #### SYDNI Espino ([id number]) [facility] ([facility]) [address] [place] [address] 97198 Glomerular filtration rate/1.73 sq M.predicted 41 mL/min/1.73m*2 Low >60 [facility] Comment on above: Result Comment: Calc ulations of estimated GFR are performed using the 2020 CKD-EPI Study Refit equation without the race variable for the IDMS-Traceable creatinine methods. https://jasn.asnjournals.org/content//ASN.2217741 988 Performed By: #### 2 571-8 #### SYDNI Espino ([id number]) [facility] ([facility]) [address] [place] [address] Glucose [Mass/Vol] 121 mg/dL High 74-99 [facility] Comment on above: Performed By: #### 2 571-8 #### SYDNI Espino ([id number]) [facility] ([facility]) [address] [place] [address]19 Phosphate [Mass/Vol] 3.3 mg/dL Normal 2.5-4.9 [facility] Comment on above: Result Comment: The performance characteristics of phosphorus testing in heparinized plasma have been validated by the individual laboratory site where testing is performed. Testing on heparinized plasma is not approved by the FDA; however, such approval is not necessary. Performed By: #### 2 571-8 #### SYDNI Espino ([id number]) [facility] ([facility]) [address] [place] [address] 26082 Potassium [Moles/Vol] 3.5 mmol/L Normal 3.5-5.3 [facility] Comment on above: Performed By: #### 2 571-8 #### SYDNI Espino ([id number]) [facility] ([facility]) [address] [place] [address] 05880 Sodium [Moles/Vol] 144 mmol/L Normal 136-145 [facility] Comment on above: Performed By: #### 2 571-8 #### SYDNI Espino ([id number]) [facility] ([facility]) [address] [place] [address] 84721 Urea nitrogen [Mass/Vol] 51 mg/dL High 6-23 [facility] Comment on above: Performed By: #### 2 571-8 #### SYDNI Espino ([id number]) [facility] ([facility]) [address] [place] [address] 59098 Bacteria identified Cx Nom ( U)Ordered By: Sintia Mejias on 04-27-2024 Interpretation and review of laboratory results Abnormal [facility] CBC panel Auto (Bld)on 04-27 Erythrocyte distribution width (RBC) [Ratio] 15.1 % High 11.5 - 14.5 % [facility] Hematocrit (Bld) [Volume fraction] 25.7 % Low 41.0 - 52.0 % [facility] Hemoglobin (Bld) [Mass/Vol] 8.1 g/dL Low 13.5 - 17.5 g/dL [facility] Interpretation and review of laboratory results Abnormal [facility] MCH (RBC) [Entitic mass] 28.7 pg 26.0 - 34.0 pg [facility] MCHC (RBC) [Mass/Vol] 31.5 g/dL Low 32.0 - 36.0 g/dL [facility] MCV (RBC) [Entitic vol] 91 fL 80 - 100 fL [facility] Nucleated RBC/100 WBC (Bld) [Ratio] 0.0 % [facility] Platelets (Bld) [#/Vol] 223 10*3/uL [facility] RBC (Bld) [#/Vol] 2.82 10*6/uL Low [facility] WBC (Bld) [#/Vol] 11.9 10*3/uL High [facility] Erythrocyte distribution width (RBC) [Ratio] 15.1 % High 11.5-14.5 [facility] Comment on above: Performed By: #### 2 571-8 #### SYDNI Espino ([id number]) [facility] ([facility]) [address] [place] [address] 14751 Hematocrit (Bld) [Volume fraction] 25.7 % Low 41.0-52.0 [facility] Comment on above: Performed By: #### 2 571-8 #### SYDNI Espino ([id number]) [facility] ([facility]) [address] [place] [address]807 Hemoglobin (Bld) [Mass/Vol] 8.1 g/dL Low 13.5-17.5 [facility] Comment on above: Performed By: #### 2 571-8 #### SYDNI Espino ([id number]) [facility] ([facility]) [address] [place] [address] 26261 MCH (RBC) [Entitic mass] 28.7 pg Normal 26.0-34.0 [facility] Comment on above: Performed By: #### 2 571-8 #### SYDNI Espino ([id number]) [facility] ([facility]) [address] [place] [address] 33846 MCHC (RBC) [Mass/Vol] 31.5 g/dL Low 32.0-36.0 [facility] Comment on above: Performed By: #### 2 571-8 #### SYDNI Espino ([id number]) [facility] ([facility]) [address] [place] [address] MCV (RBC) [Entitic vol] 91 fL Normal 80-100 [facility] Comment on above: Performed By: #### 2 571-8 #### SYDNI Espino ([id number]) [facility] ([facility]) [address] [place] [address] 53891 Nucleated RBC/100 WBC (Bld) [Ratio] 0.0 /100 WBCs Normal 0.0-0.0 [facility] Comment on above: Performed By: #### 2 571-8 #### SYDNI Espino ([id number]) [facility] ([facility]) [address] [place] [address] 81121 Platelets (Bld) [#/Vol] 223 x10*3/uL Normal 150-450 [facility] Comment on above: Performed By: #### 2 571-8 #### SYDNI Espino ([id number]) [facility] ([facility]) [address] [place] [address] 41074 RBC (Bld) [#/Vol] 2.82 x10*6/uL Low 4.50-5.90 [facility] Comment on above: Performed By: #### 2 571-8 #### SYDNI Espino ([id number]) [facility] ([facility]) [address] [place] [address] 32241 WBC (Bld) [#/Vol] 11.9 x10*3/uL High 4.4-11.3 [facility] Comment on above: Performed By: #### 2 571-8 #### SYDNI Espino ([id number]) [facility] ([facility]) [address] [place] [address] 33536 Glucose Test strip manual (B ld) [Mass/Vol]on 04-27-2024 Glucose [Mass/Vol] 152 mg/dL High 74 - 99 mg/dL [facility] Interpretation and review of laboratory results Abnormal [facility] Glucose [Mass/Vol] 152 mg/dL High 74-99 [facility] Comment on above: Performed By: #### 2 571-8 #### SYDNI Espino ([id number]) [facility] ([facility]) [address] [place] [address] 44250 Glucose [Mass/Vol] 149 mg/dL High 74 - 99 mg/dL [facility] Interpretation and review of laboratory results Abnormal [facility] Glucose [Mass/Vol] 149 mg/dL High 74-99 [facility] Comment on above: Performed By: #### 2 571-8 #### SYDNI Espino ([id number]) [facility] ([facility]) [address] [place] [address] 71249 Glucose [Mass/Vol] 140 mg/dL High 74 - 99 mg/dL [facility] Interpretation and review of laboratory results Abnormal [facility] Glucose [Mass/Vol] 140 mg/dL High 74-99 [facility] Comment on above: Performed By: #### 2 571-8 #### SYDNI Espino ([id number]) [facility] ([facility]) [address] [place] [address] 09326 Glucose [Mass/Vol] 169 mg/dL High 74 - 99 mg/dL [facility] Interpretation and review of laboratory results Abnormal [facility] Glucose [Mass/Vol] 169 mg/dL High 74-99 [facility] Comment on above: Performed By: #### 2 571-8 #### SYDNI Espino ([id number]) [facility] ([facility]) [address] [place] [address] 61041 Magnesiumon 04-27-2024 Magnesium [Mass/Vol] 2.20 mg/dL 1.60 - 2.40 mg/dL [facility] Magnesium [Mass/Vol] 2.20 mg/dL Normal 1.60-2.40 [facility] Comment on above: Performed By: #### 2 571-8 #### SYDNI Espino ([id number]) [facility] ([facility]) [address] [place] [address] Magnesium [Mass/Vol]on 04-27 Interpretation and review of laboratory results Normal [facility] No Panel Informationon 04-27 [facility] Renal function 2000 panelon 04-27-2024 Albumin BCP dye [Mass/Vol] 2.6 g/dL Low 3.4 - 5.0 g/dL [facility] Anion gap [Moles/Vol] 12 mmol/L 10 - 20 mmol/L [facility] Calcium [Mass/Vol] 7.9 mg/dL Low 8.6 - 10. 6 mg/dL [facility] Chloride [Moles/Vol] 98 mmol/L 98 - 10 7 mmol/L [facility] CO2 [Moles/Vol] 37 mmol/L High 21 - 32 mmol/L [facility] Creatinine [Mass/Vol] 1.84 mg/dL High 0.50 - 1.30 mg/dL [facility] GFR/1.73 sq M.predicted among non-blacks MDRD (S/P/Bld) [Vol rate/Area] 38 mL/min/{1.73_m2} Low - PINF [facility] Glucose [Mass/Vol] 131 mg/dL High 74 - 99 mg/dL [facility] Interpretation and review of laboratory results Abnormal [facility] Phosphate [Mass/Vol] 3.9 mg/dL 2.5 - 4 .9 mg/dL [facility] Potassium [Moles/Vol] 3.3 mmol/L Low 3.5 - 5.3 mmol/L [facility] Sodium [Moles/Vol] 144 mmol/L 136 - 145 mmol/L [facility] Urea nitrogen [Mass/Vol] 63 mg/dL High 6 - 23 mg/dL [facility] Albumin BCP dye [Mass/Vol] 2.6 g/dL Low 3.4-5.0 [facility] Comment on above: Performed By: #### 2 571-8 #### SYDNI Espino ([id number]) [facility] ([facility]) [address] [place] [address] Anion gap [Moles/Vol] 12 mmol/L Normal 10-20 [facility] Comment on above: Performed By: #### 2 571-8 #### SYDNI Espino ([id number]) [facility] ([facility]) [address] [place] [address] Calcium [Mass/Vol] 7.9 mg/dL Low 8.6-10.6 [facility] Comment on above: Performed By: #### 2 571-8 #### SYDNI QUINN L ([id number]) [facility] ([facility]) [address] [place] [address] Chloride [Moles/Vol] 98 mmol/L Normal 98-107 [facility] Comment on above: Performed By: #### 2 571-8 #### SYDNI QUINN L ([id number]) [facility] ([facility]) [address] [place] [address] CO2 [Moles/Vol] 37 mmol/L High 21-32 [facility] Comment on above: Performed By: #### 2 571-8 #### SYDNI QUINN L ([id number]) [facility] ([facility]) [address] [place] [address] Creatinine [Mass/Vol] 1.84 mg/dL High 0.50-1.30 [facility] Comment on above: Performed By: #### 2 571-8 #### SYDNI QUINN L ([id number]) [facility] ([facility]) [address] [place] [address] 36936 Glomerular filtration rate/1.73 sq M.predicted 38 mL/min/1.73m*2 Low >60 [facility] Comment on above: Result Comment: Calc ulations of estimated GFR are performed using the 2020 CKD-EPI Study Refit equation without the race variable for the IDMS-Traceable creatinine methods. https://jasn.asnjournals.org/content//ASN.8078142 988 Performed By: #### 2 571-8 #### SYDNI Espino ([id number]) [facility] ([facility]) [address] [place] [address] 14452 Glucose [Mass/Vol] 131 mg/dL High 74-99 [facility] Comment on above: Performed By: #### 2 571-8 #### SYDNI Espino ([id number]) [facility] ([facility]) [address] [place] [address] 29807 Phosphate [Mass/Vol] 3.9 mg/dL Normal 2.5-4.9 [facility] Comment on above: Result Comment: The performance characteristics of phosphorus testing in heparinized plasma have been validated by the individual laboratory site where testing is performed. Testing on heparinized plasma is not approved by the FDA; however, such approval is not necessary. Performed By: #### 2 571-8 #### SYDNI Espino ([id number]) [facility] ([facility]) [address] [place] [address] 97176 Potassium [Moles/Vol] 3.3 mmol/L Low 3.5-5.3 [facility] Comment on above: Performed By: #### 2 571-8 #### SYDNI Espino ([id number]) [facility] ([facility]) [address] [place] [address] 22455 Sodium [Moles/Vol] 144 mmol/L Normal 136-145 [facility] Comment on above: Performed By: #### 2 571-8 #### SYDNI Espino ([id number]) [facility] ([facility]) [address] [place] [address] 56244 Urea nitrogen [Mass/Vol] 63 mg/dL High 6-23 [facility] Comment on above: Performed By: #### 2 571-8 #### SYDNI QUINN L ([id number]) [facility] ([facility]) [address] [place] [address] 01051 Urine CultureOrdered By: Ridge Mejias on 04-27-2024 Bacteria identified Cx Nom (U) Culture in progress [facility] Bacteria identified Cx Nom (U) Enterococcus faecalis Abnormal [facility] Bacteria identified Cx Nom (U) Enterococcus casseliflavus Abnormal [facility] Bacteria identified Cx Nom ( Body fld)Ordered By: Clare Real on 04-26-2024 Microscopic observation Gram stain Nom (Unsp spec) (3+) Moderate Polymorphonuclear leukocytes [facility] Microscopic observation Gram stain Nom (Unsp spec) No organisms seen [facility] CBC panel Auto (Bld)on 04-26 Erythrocyte distribution width (RBC) [Ratio] 15.1 % High 11.5 - 14.5 % [facility] Hematocrit (Bld) [Volume fraction] 34.9 % Low 41.0 - 52.0 % [facility] Hemoglobin (Bld) [Mass/Vol] 11.3 g/dL Low 13.5 - 17.5 g/dL [facility] Interpretation and review of laboratory results Abnormal [facility] MCH (RBC) [Entitic mass] 29.2 pg 26.0 - 34.0 pg [facility] MCHC (RBC) [Mass/Vol] 32.4 g/dL 32.0 - 36.0 g/dL [facility] MCV (RBC) [Entitic vol] 90 fL 80 - 100 fL [facility] Nucleated RBC/100 WBC (Bld) [Ratio] 0.0 % [facility] Platelets (Bld) [#/Vol] 277 10*3/uL [facility] RBC (Bld) [#/Vol] 3.87 10*6/uL Low [facility] WBC (Bld) [#/Vol] 18.6 10*3/uL High [facility] Erythrocyte distribution width (RBC) [Ratio] 15.1 % High 11.5-14.5 [facility] Comment on above: Performed By: #### 2 524-7 #### SYDNI Espino ([id number]) [facility] ([facility]) [address] [place] [address] Hematocrit (Bld) [Volume fraction] 34.9 % Low 41.0-52.0 [facility] Comment on above: Performed By: #### 2 524-7 #### SYDNI Espino ([id number]) [facility] ([facility]) [address] [place] [address] 44870 Hemoglobin (Bld) [Mass/Vol] 11.3 g/dL Low 13.5-17.5 [facility] Comment on above: Performed By: #### 2 524-7 #### SYDNI Espino ([id number]) [facility] ([facility]) [address] [place] [address] 15930 MCH (RBC) [Entitic mass] 29.2 pg Normal 26.0-34.0 [facility] Comment on above: Performed By: #### 2 524-7 #### SYDNI Espino ([id number]) [facility] ([facility]) [address] [place] [address] 57327 MCHC (RBC) [Mass/Vol] 32.4 g/dL Normal 32.0-36.0 [facility] Comment on above: Performed By: #### 2 524-7 #### SYDNI Espino ([id number]) [facility] ([facility]) [address] [place] [address] 34133 MCV (RBC) [Entitic vol] 90 fL Normal 80-100 [facility] Comment on above: Performed By: #### 2 524-7 #### SYDNI Espino ([id number]) [facility] ([facility]) [address] [place] [address] 64581 Nucleated RBC/100 WBC (Bld) [Ratio] 0.0 /100 WBCs Normal 0.0-0.0 [facility] Comment on above: Performed By: #### 2 524-7 #### SYDNI Espino ([id number]) [facility] ([facility]) [address] [place] [address] 59748 Platelets (Bld) [#/Vol] 277 x10*3/uL Normal 150-450 [facility] Comment on above: Performed By: #### 2 524-7 #### SYDNI Espino ([id number]) [facility] ([facility]) [address] [place] [address] 40508 RBC (Bld) [#/Vol] 3.87 x10*6/uL Low 4.50-5.90 [facility] Comment on above: Performed By: #### 2 524-7 #### SYDNI Espino ([id number]) [facility] ([facility]) [address] [place] [address] 48546 WBC (Bld) [#/Vol] 18.6 x10*3/uL High 4.4-11.3 [facility] Comment on above: Performed By: #### 2 524-7 #### SYDNI Espino ([id number]) [facility] ([facility]) [address] [place] [address] 10620 Glucose Test strip manual (B ld) [Mass/Vol]on 04-26-2024 Glucose [Mass/Vol] 167 mg/dL High 74 - 99 mg/dL [facility] Interpretation and review of laboratory results Abnormal [facility] Glucose [Mass/Vol] 167 mg/dL High 74-99 [facility] Comment on above: Performed By: #### 2 524-7 #### SYDNI Espino ([id number]) [facility] ([facility]) [address] [place] [address] 36836 Glucose [Mass/Vol] 182 mg/dL High 74 - 99 mg/dL [facility] Interpretation and review of laboratory results Abnormal [facility] Glucose [Mass/Vol] 182 mg/dL High 74-99 [facility] Comment on above: Performed By: #### 2 524-7 #### SYDNI Espino ([id number]) [facility] ([facility]) [address] [place] [address] 85412 Magnesiumon 04-26-2024 Magnesium [Mass/Vol] 2.29 mg/dL 1.60 - 2.40 mg/dL [facility] Magnesium [Mass/Vol] 2.29 mg/dL Normal 1.60-2.40 [facility] Comment on above: Performed By: #### 2 524-7 #### SYDNI Espino ([id number]) [facility] ([facility]) [address] [place] [address] Magnesium [Mass/Vol]on 04-26 Interpretation and review of laboratory results Normal [facility] No Panel Informationon 04-26 [facility] Radiology Study observation (narrative) [facility] Work Phone: Renal function 2000 panelon 04-26-2024 Albumin BCP dye [Mass/Vol] 2.7 g/dL Low 3.4 - 5.0 g/dL [facility] Anion gap [Moles/Vol] 14 mmol/L 10 - 20 mmol/L [facility] Calcium [Mass/Vol] 7.8 mg/dL Low 8.6 - 10. 6 mg/dL [facility] Chloride [Moles/Vol] 94 mmol/L Low 98 - 10 7 mmol/L [facility] CO2 [Moles/Vol] 38 mmol/L High 21 - 32 mmol/L [facility] Creatinine [Mass/Vol] 2.03 mg/dL High 0.50 - 1.30 mg/dL [facility] GFR/1.73 sq M.predicted among non-blacks MDRD (S/P/Bld) [Vol rate/Area] 34 mL/min/{1.73_m2} Low - PINF [facility] Glucose [Mass/Vol] 158 mg/dL High 74 - 99 mg/dL [facility] Interpretation and review of laboratory results Abnormal [facility] Phosphate [Mass/Vol] 4.2 mg/dL 2.5 - 4 .9 mg/dL [facility] Potassium [Moles/Vol] 3.2 mmol/L Low 3.5 - 5.3 mmol/L [facility] Sodium [Moles/Vol] 143 mmol/L 136 - 145 mmol/L [facility] Urea nitrogen [Mass/Vol] 67 mg/dL High 6 - 23 mg/dL [facility] Albumin BCP dye [Mass/Vol] 2.7 g/dL Low 3.4-5.0 [facility] Comment on above: Performed By: #### 2 524-7 #### SYDNI MANER L ([id number]) [facility] ([facility]) [address] [place] [address] Anion gap [Moles/Vol] 14 mmol/L Normal 10-20 [facility] Comment on above: Performed By: #### 2 524-7 #### SYDNI QUINN L ([id number]) [facility] ([facility]) [address] [place] [address] Calcium [Mass/Vol] 7.8 mg/dL Low 8.6-10.6 [facility] Comment on above: Performed By: #### 2 524-7 #### SYDNI QUINN L ([id number]) [facility] ([facility]) [address] [place] [address] 69460 Chloride [Moles/Vol] 94 mmol/L Low 98-107 [facility] Comment on above: Performed By: #### 2 524-7 #### SYDNI GARZAMOTZER L ([id number]) [facility] ([facility]) [address] [place] [address] CO2 [Moles/Vol] 38 mmol/L High 21-32 [facility] Comment on above: Performed By: #### 2 524-7 #### SYDNI GARZAMOTZER L ([id number]) [facility] ([facility]) [address] [place] [address] Creatinine [Mass/Vol] 2.03 mg/dL High 0.50-1.30 [facility] Comment on above: Performed By: #### 2 524-7 #### SYDNI GARZAMOTZER L ([id number]) [facility] ([facility]) [address] [place] [address] Glomerular filtration rate/1.73 sq M.predicted 34 mL/min/1.73m*2 Low >60 [facility] Comment on above: Result Comment: Calc ulations of estimated GFR are performed using the 2020 CKD-EPI Study Refit equation without the race variable for the IDMS-Traceable creatinine methods. https://jasn.asnjournals.org/content/early/ASN.2056905 988 Performed By: #### 2 524-7 #### SYDNI Espino ([id number]) [facility] ([facility]) [address] [place] [address] 68773 Glucose [Mass/Vol] 158 mg/dL High 74-99 [facility] Comment on above: Performed By: #### 2 524-7 #### SYDNI Espino ([id number]) [facility] ([facility]) [id number] [place] [address] 97869 Phosphate [Mass/Vol] 4.2 mg/dL Normal 2.5-4.9 [facility] Comment on above: Result Comment: The performance characteristics of phosphorus testing in heparinized plasma have been validated by the individual laboratory site where testing is performed. Testing on heparinized plasma is not approved by the FDA; however, such approval is not necessary. Performed By: #### 2 524-7 #### SYDNI Espino ([id number]) [facility] ([facility]) [address] [place] [address] 03985 Potassium [Moles/Vol] 3.2 mmol/L Low 3.5-5.3 [facility] Comment on above: Performed By: #### 2 524-7 #### SYDNI Espino ([id number]) [facility] ([facility]) [address] [place] [address] 71539 Sodium [Moles/Vol] 143 mmol/L Normal 136-145 [facility] Comment on above: Performed By: #### 2 524-7 #### SYDNI Espino ([id number]) [facility] ([facility]) [address] [place] [address] 26525 Urea nitrogen [Mass/Vol] 67 mg/dL High 6-23 [facility] Comment on above: Performed By: #### 2 524-7 #### SYDNI Espino ([id number]) [facility] ([facility]) [address] [place] [address] 97089 Sterile Fluid Culture/SmearO rdered By: Clare Real on 04-26-2024 Bacteria identified Cx Nom (Body fld) No growth aerobically and anaerobically [facility] XR ABDOMEN 1 VIEWon 04-26-20 24 XR ABDOMEN 1 VIEW Interpreted By: Ochoa Scherer, STUDY: XR ABDOMEN 1 VIEW; 04/26/2024 5:56 am INDICATION: Signs/Symptoms:eval for passage of contrast. COMPARISON: 04/23/2024. ACCESSION NUMBER(S): [id number] ORDERING CLINICIAN: JARED GASPAR FINDINGS: NG tube overlies the body of stomach. Nonobstructive bowel gas pattern. Limited evaluation of pneumoperitoneum on supine imaging, however no gross evidence of free air is noted. Left-sided pigtail catheter overlies the left lung base. Osseous structures demonstrate no acute bony changes. IMPRESSION: 1. NG tube overlies the body of stomach. Nonobstructive bowel gas pattern. Signed by: Ochoa Colbert 04/26/2024 11:31 AM Dictation workstation: [id number] [employer] [facility] XR Abdomen Single viewon [facility] Work Phone: [facility] Work Phone: XR CHEST 1 VIEWon 04-26-2024 XR CHEST 1 VIEW Interpreted By: Ochoa Scherer, STUDY: XR CHEST 1 VIEW; 04/26/2024 2:56 pm INDICATION: Signs/Symptoms:Pigtail removed. COMPARISON: 04/26/2024. ACCESSION NUMBER(S): [id number] ORDERING CLINICIAN: JARED GASPAR FINDINGS: Interval removal of left-sided basilar pigtail catheter. CARDIOMEDIASTINAL SILHOUETTE: Cardiomediastinal silhouette is normal in size and configuration. LUNGS: There is a small left apical lucency consistent with small left apical pneumothorax. There is left lateral lucency. Minimal left-sided pleural effusion/thickening. ABDOMEN: No remarkable upper abdominal findings. BONES: Left-sided subcutaneous emphysema. IMPRESSION: 1. There is a small left apical pneumothorax. Left lateral lucency may be artifactual but follow-up to exclude a lateral pneumothorax. Signed by: Ochoa Colbert 04/26/2024 4:02 PM Dictation workstation: [id number] [facility] XR CHEST 1 VIEW Interpreted By: Ochoa Scherer, STUDY: XR CHEST 1 VIEW; 04/26/2024 5:56 am INDICATION: Signs/Symptoms:pigtail in place, eval for pneumothorax. COMPARISON: 04/25/2024. ACCESSION NUMBER(S): [id number] ORDERING CLINICIAN: JARED GASPAR FINDINGS: Left-sided pigtail catheter overlies the left lung base. CARDIOMEDIASTINAL SILHOUETTE: Cardiomediastinal silhouette is normal in size and configuration. LUNGS: Continued left apical pneumothorax. Slight improvement in left basilar component. Pulmonary hyperinflation ABDOMEN: No remarkable upper abdominal findings. BONES: No acute osseous changes. IMPRESSION: 1. Left-sided chest tube in place with small left apical pneumothorax. Pulmonary hyperinflation. Signed by: Ochoa Colbert 04/26/2024 11:30 AM Dictation workstation: [id number] [facility] XR Chest Single viewon 04-26 [facility] Work Phone: [facility] Work Phone: Radiology Study observation (narrative) [facility] Work Phone: [facility] Work Phone: [facility] Work Phone: Bacteria identifiedon 2023 Bacteria identified Cx Nom (Bld) Test: Blood Culture Specimen Source: Peripheral Venipuncture Specimen Type: Blood culture Specimen Date: 04/25/2024 1324 Result Date: 04/29/2024 1601 Result Status: Final result Abnormal: No Resulting Lab: [facility] [address] [place] [address] CULTURE No growth at 4 days - FINAL REPORT [facility] Comment on above: Performed By: #### 2 4323-8 #### SYDNI Espino ([id number]) [facility] ([facility]) [address] [place] [address] Bacteria identified Cx Nom (U) Test: Urine Culture Specimen Source: Ileal Conduit Specimen Type: Urine Specimen Date: 04/25/2024944 Result Date: 04/27/20241544 Result Status: Final result Abnormal: Yes Resulting Lab: [facility] [address] [place] [address] CULTURE Culture in progress Enterococcus faecalis (Abnormal) Enterococcus casseliflavus (Abnormal) Vancomycin Resistant Enterococcus (VRE) SUSCEPTIBILITY Enterococcus faecalis METHOD MICROSCAN - - AMPICILLIN <=2.000 mcg/mL Susceptible CIPROFLOXACIN <=1.000 mcg/mL Susceptible DAPTOMYCIN LEVOFLOXACIN 2.000 mcg/mL Susceptible LINEZOLID NITROFURANTOIN <=32 mcg/mL Susceptible PENICILLIN 2.000 mcg/mL Susceptible TRIMETHOPRIM/SULFAMETHOXAZOL E <=0.5/9.5 mcg/mL Resistant VANCOMYCIN 0.500 mcg/mL Susceptible Enterococcus casseliflavus METHOD MICROSCAN - - AMPICILLIN <=2.000 mcg/mL Susceptible CIPROFLOXACIN <=1.000 mcg/mL Susceptible DAPTOMYCIN 1.000 mcg/mL Susceptible LEVOFLOXACIN 2.000 mcg/mL Susceptible LINEZOLID 2.000 mcg/mL Susceptible NITROFURANTOIN <=32 mcg/mL Susceptible PENICILLIN 2.000 mcg/mL Susceptible TRIMETHOPRIM/SULFAMETHOXAZOL E <=0.5/9.5 mcg/mL Resistant VANCOMYCIN 4.000 mcg/mL Resistant Abnormal [facility] Comment on above: Performed By: #### 2 524-7 #### SYDNI Espino ([id number]) [facility] ([facility]) [address] [place] [address] Basic metabolic 2000 panelon 04-25-2024 Anion gap [Moles/Vol] 13 mmol/L 10 - 20 mmol/L [facility] Calcium [Mass/Vol] 9.0 mg/dL 8.6 - 10. 6 mg/dL [facility] Chloride [Moles/Vol] 96 mmol/L Low 98 - 10 7 mmol/L [facility] CO2 [Moles/Vol] 40 mmol/L Critically high 21 - 32 mmol/L [facility] Creatinine [Mass/Vol] 2.11 mg/dL High 0.50 - 1.30 mg/dL [facility] GFR/1.73 sq M.predicted among non-blacks MDRD (S/P/Bld) [Vol rate/Area] 32 mL/min/{1.73_m2} Low - PINF [facility] Glucose [Mass/Vol] 119 mg/dL High 74 - 99 mg/dL [facility] Potassium [Moles/Vol] 3.5 mmol/L 3.5 - 5.3 mmol/L [facility] Sodium [Moles/Vol] 145 mmol/L 136 - 145 mmol/L [facility] Urea nitrogen [Mass/Vol] 59 mg/dL High 6 - 23 mg/dL [facility] Anion gap [Moles/Vol] 13 mmol/L Normal 10-20 [facility] Comment on above: Performed By: #### 1 4338-8 #### SYDNI Espino ([id number]) [facility] ([facility]) [address] [place] [address] 46009 Calcium [Mass/Vol] 9.0 mg/dL Normal 8.6-10.6 [facility] Comment on above: Performed By: #### 1 4338-8 #### SYDNI Espino ([id number]) [facility] ([facility]) [address] [place] [address] Chloride [Moles/Vol] 96 mmol/L Low 98-107 [facility] Comment on above: Performed By: #### 1 4338-8 #### SYDNI Espino ([id number]) [facility] ([facility]) [address] [place] [address] CO2 [Moles/Vol] 40 mmol/L Critically high 21-32 [facility] Comment on above: Performed By: #### 1 4338-8 #### SYDNI QUINN L ([id number]) [facility] ([facility]) [address] [place] [address] Creatinine [Mass/Vol] 2.11 mg/dL High 0.50-1.30 [facility] Comment on above: Performed By: #### 1 4338-8 #### SYDNI QUINN L ([id number]) [facility] ([facility]) [address] [place] [address] 88658 Glomerular filtration rate/1.73 sq M.predicted 32 mL/min/1.73m*2 Low >60 [facility] Comment on above: Result Comment: Calc ulations of estimated GFR are performed using the 2020 CKD-EPI Study Refit equation without the race variable for the IDMS-Traceable creatinine methods. https://jasn.asnjournals.org/content/early//ASN.0860693 988 Performed By: #### 1 4338-8 #### SYDNI Espino ([id number]) [facility] ([facility]) [address] [place] [address] 31806 Glucose [Mass/Vol] 119 mg/dL High 74-99 [facility] Comment on above: Performed By: #### 1 4338-8 #### SYDNI QUINN L ([id number]) [facility] ([facility]) [address] [place] [address] Potassium [Moles/Vol] 3.5 mmol/L Normal 3.5-5.3 [facility] Comment on above: Performed By: #### 1 4338-8 #### SYDNI QUINN L ([id number]) [facility] ([facility]) [address] [place] [address] Sodium [Moles/Vol] 145 mmol/L Normal 136-145 [facility] Comment on above: Performed By: #### 1 4338-8 #### SYDNI Espino ([id number]) [facility] ([facility]) [address] [place] [address] Urea nitrogen [Mass/Vol] 59 mg/dL High 6-23 [facility] Comment on above: Performed By: #### 1 4338-8 #### SYDNI Espino ([id number]) [facility] ([facility]) [address] [place] [address] 93500 CBC panel Auto (Bld)on 04-25 Erythrocyte distribution width (RBC) [Ratio] 15.1 % High 11.5 - 14.5 % [facility] Hematocrit (Bld) [Volume fraction] 38.5 % Low 41.0 - 52.0 % [facility] Hemoglobin (Bld) [Mass/Vol] 12.2 g/dL Low 13.5 - 17.5 g/dL [facility] Interpretation and review of laboratory results Abnormal [facility] MCH (RBC) [Entitic mass] 28.8 pg 26.0 - 34.0 pg [facility] MCHC (RBC) [Mass/Vol] 31.7 g/dL Low 32.0 - 36.0 g/dL [facility] MCV (RBC) [Entitic vol] 91 fL 80 - 100 fL [facility] Nucleated RBC/100 WBC (Bld) [Ratio] 0.0 % [facility] Platelets (Bld) [#/Vol] 299 10*3/uL [facility] RBC (Bld) [#/Vol] 4.24 10*6/uL Low [facility] WBC (Bld) [#/Vol] 16.8 10*3/uL High [facility] Erythrocyte distribution width (RBC) [Ratio] 15.1 % High 11.5-14.5 [facility] Comment on above: Performed By: #### 2 4323-8 #### SYDNI Espino ([id number]) [facility] ([facility]) [address] [place] [address] Hematocrit (Bld) [Volume fraction] 38.5 % Low 41.0-52.0 [facility] Comment on above: Performed By: #### 2 4323-8 #### SYDNI Espino ([id number]) [facility] ([facility]) [address] [place] [address] 38559 Hemoglobin (Bld) [Mass/Vol] 12.2 g/dL Low 13.5-17.5 [facility] Comment on above: Performed By: #### 2 4323-8 #### SYDNI Espino ([id number]) [facility] ([facility]) [address] [place] [address] 54430 MCH (RBC) [Entitic mass] 28.8 pg Normal 26.0-34.0 [facility] Comment on above: Performed By: #### 2 4323-8 #### SYDNI Espino ([id number]) [facility] ([facility]) [address] [place] [address] 08114 MCHC (RBC) [Mass/Vol] 31.7 g/dL Low 32.0-36.0 [facility] Comment on above: Performed By: #### 2 4323-8 #### SYDNI Espino ([id number]) [facility] ([facility]) [address] [place] [address] 46486 MCV (RBC) [Entitic vol] 91 fL Normal 80-100 [facility] Comment on above: Performed By: #### 2 4323-8 #### SYDNI Espino ([id number]) [facility] ([facility]) [address] [place] [address] 39933 Nucleated RBC/100 WBC (Bld) [Ratio] 0.0 /100 WBCs Normal 0.0-0.0 [facility] Comment on above: Performed By: #### 2 4323-8 #### SYDNI Espino ([id number]) [facility] ([facility]) [address] [place] [address] 10503 Platelets (Bld) [#/Vol] 299 x10*3/uL Normal 150-450 [facility] Comment on above: Performed By: #### 2 4323-8 #### SYDNI Espino ([id number]) [facility] ([facility]) [address] [place] [address] RBC (Bld) [#/Vol] 4.24 x10*6/uL Low 4.50-5.90 [facility] Comment on above: Performed By: #### 2 4323-8 #### SYDNI Espino ([id number]) [facility] ([facility]) [address] [place] [address]01 WBC (Bld) [#/Vol] 16.8 x10*3/uL High 4.4-11.3 [facility] Comment on above: Performed By: #### 2 4323-8 #### SYDNI Espino ([id number]) [facility] ([facility]) [address] [place] [address] 70463 Erythrocyte distribution width (RBC) [Ratio] 14.8 % High 11.5 - 14.5 % [facility] Hematocrit (Bld) [Volume fraction] 38.8 % Low 41.0 - 52.0 % [facility] Hemoglobin (Bld) [Mass/Vol] 12.4 g/dL Low 13.5 - 17.5 g/dL [facility] Interpretation and review of laboratory results Abnormal [facility] MCH (RBC) [Entitic mass] 28.1 pg 26.0 - 34.0 pg [facility] MCHC (RBC) [Mass/Vol] 32.0 g/dL 32.0 - 36.0 g/dL [facility] MCV (RBC) [Entitic vol] 88 fL 80 - 100 fL [facility] Nucleated RBC/100 WBC (Bld) [Ratio] 0.0 % [facility] Platelets (Bld) [#/Vol] 340 10*3/uL [facility] RBC (Bld) [#/Vol] 4.41 10*6/uL Low [facility] WBC (Bld) [#/Vol] 19.1 10*3/uL High [facility] Erythrocyte distribution width (RBC) [Ratio] 14.8 % High 11.5-14.5 [facility] Comment on above: Performed By: #### 1 4338-8 #### SYDNI Espino ([id number]) [facility] ([facility]) [address] [place] [address] 28602 Hematocrit (Bld) [Volume fraction] 38.8 % Low 41.0-52.0 [facility] Comment on above: Performed By: #### 1 4338-8 #### SYDNI Espino ([id number]) [facility] ([facility]) [address] [place] [address] 42097 Hemoglobin (Bld) [Mass/Vol] 12.4 g/dL Low 13.5-17.5 [facility] Comment on above: Performed By: #### 1 4338-8 #### SYDNI Espino ([id number]) [facility] ([facility]) [address] [place] [address] 97796 MCH (RBC) [Entitic mass] 28.1 pg Normal 26.0-34.0 [facility] Comment on above: Performed By: #### 1 4338-8 #### SYDNI Espino ([id number]) [facility] ([facility]) [address] [place] [address] 10264 MCHC (RBC) [Mass/Vol] 32.0 g/dL Normal 32.0-36.0 [facility] Comment on above: Performed By: #### 1 4338-8 #### SYDNI Espino ([id number]) [facility] ([facility]) [address] [place] [address] 16976 MCV (RBC) [Entitic vol] 88 fL Normal 80-100 [facility] Comment on above: Performed By: #### 1 4338-8 #### SYDNI Espino ([id number]) [facility] ([facility]) [address] [place] [address] 54327 Nucleated RBC/100 WBC (Bld) [Ratio] 0.0 /100 WBCs Normal 0.0-0.0 [facility] Comment on above: Performed By: #### 1 4338-8 #### SYDNI Espino ([id number]) [facility] ([facility]) [address] [place] [address] Platelets (Bld) [#/Vol] 340 x10*3/uL Normal 150-450 [facility] Comment on above: Performed By: #### 1 4338-8 #### SYDNI QUINN L ([id number]) [facility] ([facility]) [address] [place] [address] RBC (Bld) [#/Vol] 4.41 x10*6/uL Low 4.50-5.90 [facility] Comment on above: Performed By: #### 1 4338-8 #### SYDNI QUINN L ([id number]) [facility] ([facility]) [address] [place] [address] WBC (Bld) [#/Vol] 19.1 x10*3/uL High 4.4-11.3 [facility] Comment on above: Performed By: #### 1 4338-8 #### SYDNI QUINN L ([id number]) [facility] ([facility]) [address] [place] [address] ECG 12-LEADon 04-25-2024 ECG 12-LEAD Ventricular Rate 101 Atrial Rate 101 P-R Interval 132 QRS Duration 74 Q-T Interval 358 QTC Calculation(Bazett) 464 P [place] 73 R [place] 33 T [place] 70 QRS Count 17 Q Onset 221 P Onset 155 P Offset 209 T Offset 400 QTC Fredericia 426 Diagnosis Sinus tachycardia with Premature atrial complexes Otherwise normal ECG When compared with ECG of 25-APR-2024 08:59, No significant change was found Confirmed by Doug White ([id number]) on 04/29/2024 8:56:48 AM Normal [facility] Extra Urine Gutierrez Tubeon 07-0 Extra Tube Hold for add-ons. [facility] Glucose Test strip manual (B ld) [Mass/Vol]on 04-25-2024 Glucose [Mass/Vol] 162 mg/dL High 74 - 99 mg/dL [facility] Interpretation and review of laboratory results Abnormal [facility] Glucose [Mass/Vol] 162 mg/dL High 74-99 [facility] Comment on above: Performed By: #### 2 524-7 #### SYDNI Espino ([id number]) [facility] ([facility]) [address] [place] [address] 89729 Glucose [Mass/Vol] 171 mg/dL High 74 - 99 mg/dL [facility] Interpretation and review of laboratory results Abnormal [facility] Glucose [Mass/Vol] 171 mg/dL High 74-99 [facility] Comment on above: Performed By: #### 2 4323-8 #### SYDNI Espino ([id number]) [facility] ([facility]) [address] [place] [address] 18468 Glucose [Mass/Vol] 165 mg/dL High 74 - 99 mg/dL [facility] Interpretation and review of laboratory results Abnormal [facility] Glucose [Mass/Vol] 165 mg/dL High 74-99 [facility] Comment on above: Performed By: #### 2 4323-8 #### SYDNI Espino ([id number]) [facility] ([facility]) [address] [place] [address] 70991 Glucose [Mass/Vol] 169 mg/dL High 74 - 99 mg/dL [facility] Interpretation and review of laboratory results Abnormal [facility] Glucose [Mass/Vol] 169 mg/dL High 74-99 [facility] Comment on above: Performed By: #### 1 4338-8 #### SYDNI Espino ([id number]) [facility] ([facility]) [address] [place] [address] 99936 Hepatic function 2000 panelo n 04-25-2024 Albumin BCP dye [Mass/Vol] 3.3 g/dL Low 3.4 - 5.0 g/dL [facility] ALP [Catalytic activity/Vol] 103 U/L 33 - 136 U/L [facility] ALT With P-5'-P [Catalytic activity/Vol] 83 U/L High 10 - 52 U/L [facility] AST With P-5'-P [Catalytic activity/Vol] 32 U/L 9 - 39 U/L [facility] Bilirubin [Mass/Vol] 0.8 mg/dL 0.0 - 1 .2 mg/dL [facility] Bilirubin.direct [Mass/Vol] 0.4 mg/dL High 0.0 - 0.3 mg/dL [facility] Protein [Mass/Vol] 6.2 g/dL Low 6.4 - 8.2 g/dL [facility] Albumin BCP dye [Mass/Vol] 3.3 g/dL Low 3.4-5.0 [facility] Comment on above: Performed By: #### 1 4338-8 #### SYDNI Espino ([id number]) [facility] ([facility]) [address] [place] [address] ALP [Catalytic activity/Vol] 103 U/L Normal 33-136 [facility] Comment on above: Performed By: #### 1 4338-8 #### SYDNI Espino ([id number]) [facility] ([facility]) [address] [place] [address] ALT With P-5'-P [Catalytic activity/Vol] 83 U/L High 10-52 [facility] Comment on above: Result Comment: Taylor ents treated with Sulfasalazine may generate falsely decreased results for ALT. Performed By: #### 1 4338-8 #### SYDNI Espino ([id number]) [facility] ([facility]) [address] [place] [address] AST With P-5'-P [Catalytic activity/Vol] 32 U/L Normal 9-39 [facility] Comment on above: Performed By: #### 1 4338-8 #### SYDNI Espino ([id number]) [facility] ([facility]) [address] [place] [address] Bilirubin [Mass/Vol] 0.8 mg/dL Normal 0.0-1.2 [facility] Comment on above: Performed By: #### 1 4338-8 #### SYDNI Espino ([id number]) [facility] ([facility]) [address] [place] [address] 18444 Bilirubin.direct [Mass/Vol] 0.4 mg/dL High 0.0-0.3 [facility] Comment on above: Performed By: #### 1 4338-8 #### SYDNI Espino ([id number]) [facility] ([facility]) [address] [place] [address] Protein [Mass/Vol] 6.2 g/dL Low 6.4-8.2 [facility] Comment on above: Performed By: #### 1 4338-8 #### SYDNI Espino ([id number]) [facility] ([facility]) [address] [place] [address] 95884 Magnesiumon 04-25-2024 Magnesium [Mass/Vol] 2.37 mg/dL 1.60 - 2.40 mg/dL [facility] Magnesium [Mass/Vol] 2.37 mg/dL Normal 1.60-2.40 [facility] Comment on above: Performed By: #### 2 4323-8 #### SYDNI Espino ([id number]) [facility] ([facility]) [address] [place] [address] 98508 Magnesium [Mass/Vol] 2.34 mg/dL 1.60 - 2.40 mg/dL [facility] Magnesium [Mass/Vol] 2.34 mg/dL Normal 1.60-2.40 [facility] Comment on above: Performed By: #### 1 4338-8 #### SYDNI Espino ([id number]) [facility] ([facility]) [address] [place] [address] 63385 Magnesium [Mass/Vol]on 04-25 Interpretation and review of laboratory results Normal [facility] No Panel Informationon 04-25 [facility] Interpretation and review of laboratory results Abnormal [facility] Interpretation and review of laboratory results Normal [facility] Phosphateon 04-25-2024 Phosphate [Mass/Vol] 3.7 mg/dL Normal 2.5-4.9 [facility] Comment on above: Result Comment: The performance characteristics of phosphorus testing in heparinized plasma have been validated by the individual laboratory site where testing is performed. Testing on heparinized plasma is not approved by the FDA; however, such approval is not necessary. Performed By: #### 1 4338-8 #### SYDNI Espino ([id number]) [facility] ([facility]) [address] [place] [address] Phosphoruson 04-25-2024 Phosphate [Mass/Vol] 3.7 mg/dL 2.5 - 4 .9 mg/dL [facility] Renal function 2000 panelon 04-25-2024 Albumin BCP dye [Mass/Vol] 2.9 g/dL Low 3.4 - 5.0 g/dL [facility] Anion gap [Moles/Vol] 15 mmol/L 10 - 20 mmol/L [facility] Calcium [Mass/Vol] 8.3 mg/dL Low 8.6 - 10. 6 mg/dL [facility] Chloride [Moles/Vol] 91 mmol/L Low 98 - 10 7 mmol/L [facility] CO2 [Moles/Vol] 40 mmol/L Critically high 21 - 32 mmol/L [facility] Creatinine [Mass/Vol] 2.45 mg/dL High 0.50 - 1.30 mg/dL [facility] GFR/1.73 sq M.predicted among non-blacks MDRD (S/P/Bld) [Vol rate/Area] 27 mL/min/{1.73_m2} Low - PINF [facility] Glucose [Mass/Vol] 142 mg/dL High 74 - 99 mg/dL [facility] Interpretation and review of laboratory results Abnormal [facility] Phosphate [Mass/Vol] 4.5 mg/dL 2.5 - 4 .9 mg/dL [facility] Potassium [Moles/Vol] 3.2 mmol/L Low 3.5 - 5.3 mmol/L [facility] Sodium [Moles/Vol] 143 mmol/L 136 - 145 mmol/L [facility] Urea nitrogen [Mass/Vol] 69 mg/dL High 6 - 23 mg/dL [facility] Albumin BCP dye [Mass/Vol] 2.9 g/dL Low 3.4-5.0 [facility] Comment on above: Performed By: #### 2 4323-8 #### SYDNI Espino ([id number]) [facility] ([facility]) [id number] [place] [address] 39870 Anion gap [Moles/Vol] 15 mmol/L Normal 10-20 [facility] Comment on above: Performed By: #### 2 4323-8 #### SYDNI Espino ([id number]) [facility] ([facility]) [address] [place] [address] 10827 Calcium [Mass/Vol] 8.3 mg/dL Low 8.6-10.6 [facility] Comment on above: Performed By: #### 2 4323-8 #### SYDNI Espino ([id number]) [facility] ([facility]) [address] [place] [address] 31583 Chloride [Moles/Vol] 91 mmol/L Low 98-107 [facility] Comment on above: Performed By: #### 2 4323-8 #### SYDNI Espino ([id number]) [facility] ([facility]) [address] [place] [address] 05783 CO2 [Moles/Vol] 40 mmol/L Critically high 21-32 [facility] Comment on above: Result Comment: Prev ious result verified on 04/25/2024 0614 on specimen/case [id number] called with component BIC for procedure Basic Metabolic Panel with value 40 mmol/L. Performed By: #### 2 4323-8 #### SYDNI Espino ([id number]) [facility] ([facility]) [address] [place] [address] 74018 Creatinine [Mass/Vol] 2.45 mg/dL High 0.50-1.30 [facility] Comment on above: Performed By: #### 2 4323-8 #### SYDNI Espino ([id number]) [facility] ([facility]) [address] [place] [address] Glomerular filtration rate/1.73 sq M.predicted 27 mL/min/1.73m*2 Low >60 [facility] Comment on above: Result Comment: Calc ulations of estimated GFR are performed using the 2020 CKD-EPI Study Refit equation without the race variable for the IDMS-Traceable creatinine methods. https://jasn.asnjournals.org/content/early//ASN.5048670 988 Performed By: #### 2 4323-8 #### SYDNI Espino ([id number]) [facility] ([facility]) [id number] [place] [address] 98938 Glucose [Mass/Vol] 142 mg/dL High 74-99 [facility] Comment on above: Performed By: #### 2 4323-8 #### SYDNI Espino ([id number]) [facility] ([facility]) [id number] [place] [address] 13429 Phosphate [Mass/Vol] 4.5 mg/dL Normal 2.5-4.9 [facility] Comment on above: Result Comment: The performance characteristics of phosphorus testing in heparinized plasma have been validated by the individual laboratory site where testing is performed. Testing on heparinized plasma is not approved by the FDA; however, such approval is not necessary. Performed By: #### 2 4323-8 #### SYDNI Espino ([id number]) [facility] ([facility]) [address] [place] [address] Potassium [Moles/Vol] 3.2 mmol/L Low 3.5-5.3 [facility] Comment on above: Performed By: #### 2 4323-8 #### SYDNI Espino ([id number]) [facility] ([facility]) [address] [place] [address] 51498 Sodium [Moles/Vol] 143 mmol/L Normal 136-145 [facility] Comment on above: Performed By: #### 2 4323-8 #### SYDNI Espino ([id number]) [facility] ([facility]) [address] [place] [address] 27768 Urea nitrogen [Mass/Vol] 69 mg/dL High 6-23 [facility] Comment on above: Performed By: #### 2 4323-8 #### SYDNI Espino ([id number]) [facility] ([facility]) [address] [place] [address] 90664 Urinalysis complete W Reflex Culture panel (U)on 04-25-2024 Interpretation and review of laboratory results Abnormal [facility] RBC Auto (Urine sed) [#/Area] >20 Abnormal NONE, 1-2, 3-5 /HPF [facility] Triple phosphate crystals Computer assisted (U) [#/Area] 1+ NONE, 1+ /HPF [facility] WBC Auto (Urine sed) [#/Area] 21-50 Abnormal 1-5, NONE /HPF [facility] Appearance (U) Ex.Turbid Normal Clear [facility] Comment on above: Performed By: #### 2 4323-8 #### SYDNI Espino ([id number]) [facility] ([facility]) [address] [place] [address] 49028 Bilirubin (U) [Mass/Vol] Negative Normal NEGATIVE [facility] Comment on above: Performed By: #### 2 4323-8 #### SYDNI Espino ([id number]) [facility] ([facility]) [address] [place] [address] 23391 Color (U) Dark-Brown Normal Light-[place] ow, Yellow, Dark-Yello w [facility] Comment on above: Performed By: #### 2 4323-8 #### SYDNI Espino ([id number]) [facility] ([facility]) [address] [place] [address] 74496 Glucose Auto test strip (U) [Mass/Vol] Normal Normal Normal [facility] Comment on above: Performed By: #### 2 4323-8 #### SYDNI Espino ([id number]) [facility] ([facility]) [address] [place] [address] 92721 Ketones (U) [Mass/Vol] Negative Normal NEGATIVE [facility] Comment on above: Performed By: #### 2 4323-8 #### SYDNI Espino ([id number]) [facility] ([facility]) [address] [place] [address] 31427 Leukocyte esterase Auto test strip Ql (U) Negative Normal NEGATIVE [facility] Comment on above: Performed By: #### 2 4323-8 #### SYDNI Espino ([id number]) [facility] ([facility]) [address] [place] [address] 02546 Nitrite Auto test strip Ql (U) Negative Normal NEGATIVE [facility] Comment on above: Performed By: #### 2 4323-8 #### SYDNI Espino ([id number]) [facility] ([facility]) [address] [place] [address] 36564 pH (U) 8.5 [pH] Normal 5.0, 5.5, 6.0, 6.5, 7.0, 7.5, 8.0 [facility] Comment on above: Performed By: #### 2 4323-8 #### SYDNI Espino ([id number]) [facility] ([facility]) [address] [place] [address] 57868 Protein (U) [Mass/Vol] 100 (2+) Abnormal NEGATIVE, 10 (TRACE), 20 (TRACE) [facility] Comment on above: Performed By: #### 2 4323-8 #### SYDNI Espino ([id number]) [facility] ([facility]) [address] [place] [address] 91228 RBC (U) [#/Vol] Negative Normal NEGATIVE [facility] Comment on above: Performed By: #### 2 4323-8 #### SYDNI Espino ([id number]) [facility] ([facility]) [address] [place] [address] 97498 RBC Auto (Urine sed) [#/Area] >20 Abnormal NONE, 1-2, 3-5 [facility] Comment on above: Performed By: #### 2 4323-8 #### SYDNI Espino ([id number]) [facility] ([facility]) [address] [place] [address] 87868 Specific gravity (U) [Rel density] 1.020 Normal 1.005-1.03 5 [facility] Comment on above: Performed By: #### 2 4323-8 #### SYDNI Espino ([id number]) [facility] ([facility]) [address] [place] [address] 37880 Triple phosphate crystals Computer assisted (U) [#/Area] 1+ /HPF Normal NONE, 1+ [facility] Comment on above: Performed By: #### 2 4323-8 #### SYDNI Espino ([id number]) [facility] ([facility]) [address] [place] [address] 95448 Urobilinogen (U) [Mass/Vol] Normal Normal Normal [facility] Comment on above: Performed By: #### 2 4323-8 #### SYDNI Espino ([id number]) [facility] ([facility]) [address] [place] [address] 12343 WBC Auto (Urine sed) [#/Area] 21-50 Abnormal 1-5, NONE [facility] Comment on above: Performed By: #### 2 4323-8 #### SYDNI Espino ([id number]) [facility] ([facility]) [address] [place] [address] 30606 Urinalysis complete W Reflex Culture panel (U)Ordered By: Lefty Navarro on 04-25-2024 Appearance (U) Ex.Turbid Abnormal Clear [facility] Bilirubin (U) [Mass/Vol] Negative NEGATIVE [facility] Color (U) Dark-Brown Abnormal Light-[place] ow, Yellow, Dark-Yello w [facility] Glucose Auto test strip (U) [Mass/Vol] Normal Normal mg/dL [facility] Interpretation and review of laboratory results Abnormal [facility] Ketones (U) [Mass/Vol] Negative NEGATIVE mg/dL [facility] Leukocyte esterase Auto test strip Ql (U) Negative NEGATIVE [facility] Nitrite Auto test strip Ql (U) Negative NEGATIVE [facility] pH (U) 8.5 [pH] Abnormal 5.0, 5.5, 6.0, 6.5, 7.0, 7.5, 8.0 [facility] Protein (U) [Mass/Vol] 100 (2+) Abnormal NEGATIVE, 10 (TRACE), 20 (TRACE) mg/dL [facility] RBC (U) [#/Vol] Negative NEGATIVE [facility] Specific gravity (U) [Rel density] 1.020 1.005 - 1.035 [facility] Urobilinogen (U) [Mass/Vol] Normal Normal mg/dL [facility] XR CHEST 1 VIEWon 04-25-2024 XR CHEST 1 VIEW Interpreted By: Ochoa Scherer, STUDY: XR CHEST 1 VIEW; 04/25/2024 6:09 am INDICATION: Signs/Symptoms:left pigtail. COMPARISON: 04/24/2024. ACCESSION NUMBER(S): [id number] ORDERING CLINICIAN: TIEN LYNN FINDINGS: CARDIOMEDIASTINAL SILHOUETTE: Cardiomediastinal silhouette is normal in size and configuration. LUNGS: Left-sided pigtail catheter overlies the left lung base. Minimal increase in left basilar pneumothorax. Left apical pneumothorax again noted. ABDOMEN: No remarkable upper abdominal findings. BONES: Subcutaneous emphysema again noted and correlate with continued air leak. IMPRESSION: 1. Slight interval increase in left basilar and apical pneumothorax status post pigtail catheter placement. Correlate with continued air leak. Signed by: Ochoa Colbert 04/25/2024 4:37 PM Dictation workstation: [id number] Normal [facility] XR Chest Single viewon 04-25 UH MMODAL UH MMODAL [facility] Work Phone: Radiology Study observation (narrative) [facility] Work Phone: XR Chest Single viewOrdered By: Leon Colbert on 04-25-2024 [facility] Work Phone: CBC panel Auto (Bld)on 04-24 Erythrocyte distribution width (RBC) [Ratio] 14.8 % High 11.5 - 14.5 % [facility] Hematocrit (Bld) [Volume fraction] 34.7 % Low 41.0 - 52.0 % [facility] Hemoglobin (Bld) [Mass/Vol] 11.0 g/dL Low 13.5 - 17.5 g/dL [facility] Interpretation and review of laboratory results Abnormal [facility] MCH (RBC) [Entitic mass] 28.7 pg 26.0 - 34.0 pg [facility] MCHC (RBC) [Mass/Vol] 31.7 g/dL Low 32.0 - 36.0 g/dL [facility] MCV (RBC) [Entitic vol] 91 fL 80 - 100 fL [facility] Nucleated RBC/100 WBC (Bld) [Ratio] 0.0 % [facility] Platelets (Bld) [#/Vol] 285 10*3/uL [facility] RBC (Bld) [#/Vol] 3.83 10*6/uL Low [facility] WBC (Bld) [#/Vol] 12.6 10*3/uL High [facility] Erythrocyte distribution width (RBC) [Ratio] 14.8 % High 11.5-14.5 [facility] Comment on above: Performed By: #### 1 9123-9 #### SYDNI Espino ([id number]) [facility] ([facility]) [address] [place] [address] 34683 Hematocrit (Bld) [Volume fraction] 34.7 % Low 41.0-52.0 [facility] Comment on above: Performed By: #### 1 9123-9 #### SYDNI Espino ([id number]) [facility] ([facility]) [address] [place] [address] 33668 Hemoglobin (Bld) [Mass/Vol] 11.0 g/dL Low 13.5-17.5 [facility] Comment on above: Performed By: #### 1 9123-9 #### SYDNI Espino ([id number]) [facility] ([facility]) [address] [place] [address] MCH (RBC) [Entitic mass] 28.7 pg Normal 26.0-34.0 [facility] Comment on above: Performed By: #### 1 9123-9 #### SYDNI Espino ([id number]) [facility] ([facility]) [address] [place] [address] 93621 MCHC (RBC) [Mass/Vol] 31.7 g/dL Low 32.0-36.0 [facility] Comment on above: Performed By: #### 1 9123-9 #### SYDNI Espino ([id number]) [facility] ([facility]) [address] [place] [address] 42961 MCV (RBC) [Entitic vol] 91 fL Normal 80-100 [facility] Comment on above: Performed By: #### 1 9123-9 #### SYDNI Espino ([id number]) [facility] ([facility]) [address] [place] [address] 57023 Nucleated RBC/100 WBC (Bld) [Ratio] 0.0 /100 WBCs Normal 0.0-0.0 [facility] Comment on above: Performed By: #### 1 9123-9 #### SYDNI Espino ([id number]) [facility] ([facility]) [address] [place] [address] 04742 Platelets (Bld) [#/Vol] 285 x10*3/uL Normal 150-450 [facility] Comment on above: Performed By: #### 1 9123-9 #### SYDNI Espino ([id number]) [facility] ([facility]) [address] [place] [address] 69610 RBC (Bld) [#/Vol] 3.83 x10*6/uL Low 4.50-5.90 [facility] Comment on above: Performed By: #### 1 9123-9 #### SYDNI Espino ([id number]) [facility] ([facility]) [address] [place] [address] 34090 WBC (Bld) [#/Vol] 12.6 x10*3/uL High 4.4-11.3 [facility] Comment on above: Performed By: #### 1 9123-9 #### SYDNI Espino ([id number]) [facility] ([facility]) [address] [place] [address] ECG 12 Leadon 04-24-2024 Atrial Rate 89 BPM [facility] Work Phone: [phone] P [place] 59 degrees [facility] Work Phone: [phone] P Offset 207 ms [facility] Work Phone: [phone] P Onset 155 ms [facility] Work Phone: [phone] TX Interval 132 ms [facility] Work Phone: [phone] Q Onset 221 ms [facility] Work Phone: [phone] QRS Count 15 beats [facility] Work Phone: [phone] QRS Duration 72 ms [facility] Work Phone: [phone] QT Interval 384 [facility] Work Phone: [phone] QTC Calculation(Bazett) 467 [facility] Work Phone: [phone] QTC Fredericia 437 [facility] Work Phone: [phone] R [place] 30 degrees [facility] Work Phone: [phone] T [place] 68 degrees [facility] Work Phone: [phone] T Offset 413 [facility] Work Phone: [phone] Ventricular Rate 89 BPM [facility] Work Phone: [phone] [facility] Work Phone: [phone] [facility] Work Phone: [phone] ECG 12-LEADon 04-24-2024 ECG 12-LEAD Ventricular Rate 89 Atrial Rate 89 P-R Interval 132 QRS Duration 72 Q-T Interval 384 QTC Calculation(Bazett) 467 P [place] 59 R [place] 30 T [place] 68 QRS Count 15 Q Onset 221 P Onset 155 P Offset 207 T Offset 413 QTC Fredericia 437 Diagnosis Normal sinus rhythm Normal ECG When compared with ECG of 22-APR-2024 17:12, No significant change was found Confirmed by Doug White ([id number]) on 04/24/2024 11:49:19 AM Normal [facility] Glucose Test strip manual (B ld) [Mass/Vol]on 04-24-2024 Glucose [Mass/Vol] 126 mg/dL High 74 - 99 mg/dL [facility] Interpretation and review of laboratory results Abnormal [facility] Glucose [Mass/Vol] 126 mg/dL High 74-99 [facility] Comment on above: Performed By: #### 1 4338-8 #### SYDNI Espino ([id number]) [facility] ([facility]) [address] [place] [address] 13240 Glucose [Mass/Vol] 178 mg/dL High 74 - 99 mg/dL [facility] Interpretation and review of laboratory results Abnormal [facility] Glucose [Mass/Vol] 178 mg/dL High 74-99 [facility] Comment on above: Performed By: #### 1 4338-8 #### SYDNI Espino ([id number]) [facility] ([facility]) [address] [place] [address] 45323 Glucose [Mass/Vol] 120 mg/dL High 74 - 99 mg/dL [facility] Interpretation and review of laboratory results Abnormal [facility] Glucose [Mass/Vol] 120 mg/dL High 74-99 [facility] Comment on above: Performed By: #### 1 9123-9 #### SYDNI Espino ([id number]) [facility] ([facility]) [address] [place] [address] 41319 Magnesiumon 04-24-2024 Magnesium [Mass/Vol] 2.03 mg/dL 1.60 - 2.40 mg/dL [facility] Magnesium [Mass/Vol] 2.03 mg/dL Normal 1.60-2.40 [facility] Comment on above: Performed By: #### 1 9123-9 #### SYDNI Espino ([id number]) [facility] ([facility]) [address] [place] [address] Magnesium [Mass/Vol]on 04-24 Interpretation and review of laboratory results Normal [facility] No Panel Informationon 04-24 [facility] Non-gynecological cytology m ethod studyOrdered By: Lis Scott on 04-24-2024 Laboratory comment Michael (Report) f7wypZYoYUQne0lwCQAlpOXqZsZr MzNcZnRuYmpcdWMxIHtccnRmMVxh thBcMDRoErjcdphcJFMqJJG4ezTy AVGlBTW9LII9KjTwx4R1VBXlXpWw BBBuXK3nlHdnELVyXB8jXJZnQ5gj tZ4apzy9BpRkTOMaXvL5TTOevhM4 Mlw0RBMhQEebq7blz2NwU6Szc7Il VYz4aTwvTsAwKHPfh3ivubBrOwTe SDFgSOUqITIbT55wPDPYE096i4re e1nbpuDifHU5XISvZYT8NJpldcFd prM8QYtdyYLkJcV1PRbualQaUYuw qwKeuxEfFgy0ZNGsC276WIW6eUds x9obTRQ1PMQoVAAqRsWkUf2wdMUp L661FKIcEXOLGZByyGj0ANJjqcXn wdBboSOCk474B874l6iwLLTfszOd kHlYcairu2myY452UTSeuINxcmMx JwRqXYWloBGeoRD9PFHqHS6fpvtb WHezNGbcFZGdtiU1EKKmoLNaG1Bq WPCbRC0ifjdxWNX7AWnlCDKiWKP0 TnOqRNDjm0Uxveb4NnTxta9lcg85 CJR6a5PdoPzoJTK5AHC7ZhBwHh2y aWZnBCJoEC6lBcIqpTFoOIShjz22 gNqtXBzoscEmaY2jNsZhGFTjkKVr APClNW6wbETrQNQkbH4hukpbCFVk ZtGeltqnMKGvzDpcwyUhGu0boKxx AJA7LDxxK2ykzN5vHtF9LMnxD1lm qL0hORz7LOvogMJ8JUOwaJ9uYG2o smugd2juPUmvLNrvKXBwzeS2amI3 JMEbmKNfV1QouE8wSHWjHH8gzxkj j2mkNUH3RWsiMVGaEJA6JzDqNMYp g8Qkgdl9KtQdb7XrfVTkGZpjX14e x168ROBjbxTuK3jwjAQfqtqbuRGy wezfYAqlehE4NGStWXXnXVswOZOs XGZzMjBcbGFuZzEwMzNcaGljaFxm JEdvBfVrJJSbEUuiN0caUtNwF7Vs MPCgJdUpC3ieHFZnbynjuW9erUvg qZi9ZQEokyLongRiXHS7EL7BPGCn TFlSSUMgSEFZTkVTLCBDVCBhdCBD WANkFAMNPJLPVWNMMS7TMNRxYRWr MQAkPSYPKZoFJCJPUOobOHMgB6uQ ScQESK9FBV3GXWZ7KVW6PFY9BOMv wEzgwX3kKzBlIyMzSwtlQU3nBOEe X1mwuZTcIEUjQCTsR1ryMsKbwV5x eDqnAMcmojRpNCHecs44s3oraGPf BVChvGOvHjOyTFVdWVDck1qhXQDu bGFuZzEwMzNcZnRuYmpcdWMxXGRl OwVob5qvk087wAJoh4fnQZUmUzO2 uBZvTBDiN47rAHYQV766DRPzNFjs i0nbb1CqAHBynZQcc8Y9WBPFKQoq UMUWETe5rRrtG76gx0C5QgziX0bb HDQxCRCuK9ZxVG5xDWTdVle5YZK4 DGC1NZYeCOYnV1ArRX8vBMYqpAVr SKo9o3ldvHmpWCEjAIT8a6rhYChp wnHcXU7epi9oeRk2r1apqcEcKMKn GHAzaBAGQLWzG2KjdObkFg1mpGd3 eAwhVlccREH2Mvq7OU7qwo66lys4 zXhaOUUgbyozRiP9TYlzKFCdlele GGt4FYamLUQetBU4MJyoJPOnsrH5 RNfkDMVhpPK4SUslVACjHzA4PKom EMHnVPY0PnBrAGTwf2SonznePrId wp4scy17LJL2b8EvpEgcUJJ8KQT8 TuRdBg8cpZIgAOVqTL5oRnSqrONd SFUpsf03cBofEVuarrBmsR3uUhUb PZHueJYnTHUrTG4kmJSzECNezR9v cmxjXHBnYnJkcmhlYWRccGdicmRy Pk3zpRarWCR5RRmoO0vsfW0oPkS3 XEbyF0hniC0sNRo8YEqinBG0TXKv pC4eUH5yguckd2lgLbGwWF3bauzx l1skLlWnTG4iqzh4f9lxTaAeUL6e wvrif1hnBfHcMWsxTAKnvkajNrKu Mu3ijYBsgLR4CZmfFngjWHfaAFMv bmNvbnRccGduZGVjXHBsYWluXHBs WEfwANWcWGOaBbEcaYifuJgsdV4d ZgPfNcPhYIodKP6pLJNuN1hfpRWa COAlMNSkS9nkAnWwyH9wdIoxNEfy ikAqMPR5ZZOsYACldVdsMDR5nwJt c85cnEdboqAyGRKltnNkRRVvGSSh leOqgiaxiMCtFS1rHFzuo5EvIUzh g1PbEUDnyxXdYDrerfcvcCexQGUu ttCpWHkqvFBiuURepSG0iA6zV9Qi FWshr7QdjcDyLZY4mFEcOSTsxElm kGT5fEQ5GBqhmnCcaaH5sMP2ZPGe dGhpcyBjYXNlLiBccGFyfX0= [facility] Work Phone: Laboratory comment Michael (Report) l1bjkIKeKJCevDUcNhBrONIdHOLf b6lvZQPwzPEiZkZkEvEyVkPjRtsd iLIcTXYoXdGze1ohl501iKMst4ee DCQsZzT1iUAwQCCsE46hIEEAF139 QWHuKVpeb3czq5WpCBTufVAoh3T9 HZNFBQqrJBEIFZy3fGqyE85zh8W6 VuxdR1goAPFwXNEsK5ZuTU1zSJSs Tzn6SRP1QUA8CVTdIYKtD4NgKJ1o NDMboGZaUQh2x6vncSpcNEMmDOP2 i6cjXIvzfiWkEE9tpj5fgFc4s2ji nuOrVVJbSSUgmMYMXIBcJ7CzwPrc Ad1zhQw3nOgkAddaACY1Lhx0RU9e iv63wza5vDzyPYHelybmGxL5JOzu DLNdonvuLZh1RTxqZHAzbFJ4ZKRe fIIgT5KzIKOiHM2vjcw6WYG4LNuv MABzLoZ9ACHbkEFeYYGlbZlrFTrs c859UIG7HbNpAG5fO1Vpk5R2jK6k gXGkDLQinZSuSqGwJRXele1mfBMe UVvrl4DpFRS3szM3zLFntGHaGZVp FY11Opqux7EjZtqsVKF4TBCtdaIq t1Qow3uuWeKwcqQqC1lpA7RaMTNq XDBsHYTuUcTusgXlk5Hsg3VwsRXl vNu0o7yhZXNmATXemKcrs3szFRZ8 WHQzF5E7fEYuf3slLHoaITCulOI6 ofT6SKDdbAIwA3PenL6bTXAhMH9h jmz4w1scYMD9LLmmYJLvWzZ8ttA5 PVRheTWdUGGbjVvwZHouy579SEI2 NvQxSEIud2EqW8FrkMgcX99bxEaf G44hDQExrHsreE0ipFhxpI6wDcAb ZnMyNFxwYXJkXHBsYWluXGYxXGZz MjBcbGFuZzEwMzNcaGljaFxmMVxk QrOsMHKzUXwqB6voIrUcRaZjQNFQ FFnIqIrcBPAeF39jiSWhOb0rJkid L4cfSWmcMJYzTLRoPXxLLWElH9Gy lK0gDhtNSlNHtFfdOOZfvLxnjABa RWQzCJOxsHktQwvfJ0qEBEIppuFV Tq4fOJqnORsqsIolpC5rUyTwMvSf DvbzJG2qPEInO8jalVOgOBRaMMRu Z4riPiXffN9oyTtlIZakzgNpNLBq cn0= [facility] Work Phone: Pathology report Cancer Narrative [facility] Work Phone: Pathology report final diagnosis Narrative y0yxhAYvLSVifNXxKPPrQ4kpfiLx GEQxpQDpK5BylkqyQMozAE6lOZ4o jLtkiNUkwFHsZBQlUmAku9gdz603 aNZcx4toKFKRkdjljHo5h4zeGTEE LWyfZALLYCu6eIooP93ob6D5Sqzg D2arWMCmQFzatyQlakD1KOQtbOBq EAd9LRVcnBJtbsSlHpPeZMCybYVx uRK2YHTxPI7xazpqXKrzMYjzZCJt zeR8YASaiDYhE5QeMXRxNI5vehxg WFQ0LVvzPINtGRS6KtScCWYvb4Kf gfb4JuSkeLa5g3cxWMJtKYArmNpe a5xjHQY7UZZkkZRyD8wyvI9aRZEm CX9auugod2vmJUiyZWhkNLLorJI2 enK2WNUffQGxF7OqdG8iPOQuIHYu vaGldZpzaR4nEuMtNpCwURmmEmKf cGFyIEEuIFBMRVVSQUwgRkxVSUQg TEVGVCBTSURFIFxjZjAgLCBDWVRP IK3QFWDPLiSjF4FKDVAMMG0WZjzs jAAjTEXgFRu7YKJxiELdBOUjVokx CFOeKgp1NJRqTaZeZ9RcHJ4aHW1e bGlnbmFudCBjZWxscyBpZGVudGlm aWVkXHBhclxjZjFcdGFiXHBhclx0 VZIgK7QvHYCeFFNmhXIiSCXqhjDd s0ZwGY5hKBYvCVM7rUScCJ1ha737 aGVsaWFsIGNlbGxzIGFuZCBpbmZs AA3eWAMoanlyE7RldNWbbDArATBj MVxwYXJcdGFiXHBhcn0= [facility] Work Phone: Pathology report gross observation Narrative j3uawPMwYMIxiCOYVLO8EJZnKM4z cBgjcJl9vEmbFZXwuqX2iGIaTEth m7tqKUH9x4gbtlLIEzsaOHCuSO2r GHksXHLeHH5nKqBxROCcCcGgZZGd nXLuhmTsQjSxSJIelPAgxTA4CRSc XH6xhikeDXrgAIjzNFGxsiF5DPRi nDAoX3XmFFWtOJ0kewpgWYJ4EDGD VhzsVx5vdRUqwXHOMuuvWzVlQnAh ENZrHLCdUKKkh6jnxgQJbaletYi3 SBr5JBLtLKGrnEPrn2O1LUxnm3nn z5LdN2Kaa7EhZZk3mY5ODuagKPC3 FZKHJgehTvjdvChxz8BvcTFlVDSp IFxcaWQgNTEwMDAgXFxkYiBPVlIg UuItELS1SvK6HdOvSJd2NJbxLfOP VYH5FdE5YILyFTw4AUbjQTqjoRFk ORIoXVZdSMNiZLmeryH1n1qfRASo yKSfOLC4PAjpg8bdIEkrNRK8MDYs WpZyANApYX2JUoAlKWM9SMPqCLj4 BdJ1DXa5WHNOJbQxArSwOCCvIzE4 CfclWHg1TZe8MUnQPeY5HFY3VKQy WoHoLBM6VIesTDi0HFHbFRhgvwNg MWrpAtolDIecK48xdZZeDYQATlbg bGFpblxmMVxmczIyIEEuIFBMRVVS QUwgRkxVSUQgTEVGVCBTSURFLlxs dHJjaFxmMlxwYXIgDQpccGFyZCAN ClxwbGFpblxsdHJjaFxmczIyXGVw jLHWWSM6NG2eRTJLTutulGFaSVSd DQpcZnMyMCBSZWNlaXZlZCAxMCBt iFSzhDStjGZepKrwFxoshBJ3HDjv AjzibJ8lcUSMYZOZLggDZvqhgoRi AP2FZVFESpTSBG78XvXrFYM7XEhr aMyyRtgdmjMphUMxMmLOfQ75TGhx y8l3PDAbUGppd8tiHCXcZMvbi5Lj CKzOOBTONA3VWT2dtOS7SOaWWCFH RYxoTGPmT3ocuPZ0k6fuaXYba9u0 TTjmXLD4eJqxqZZvhcgylKXgcGay czIwICBccHJvdGVjdHtcZmllbGR7 IXbgLgtbsT2xxFPLZBCNJwoOIbrw mqIvQA9FFFILJxPEPD74UoPyVHB5 UjlygVfeIsphbiPuhFAkRmWErW5q hY84ANr5ESLwOLvdj6mgFSPpBWyy u2RnRDbJKCWZOY7FNH5poYX4EQeF MJBAHWanZHRbIWasgSF2d5yjfRRb d0o4IMxbZQU2hHdwdWNympzakJYw aFxmczIwICBmbHVpZCBccHJvdGVj nQoaFysbpCY0CPyzAtagaX1jbJRR CFEEJrhABemsdmFoQO1LCQJYRpDK HQ68BfKfLWY9Y3ryiSsjWmgjypKm mXAzBpQGxH97mIEqb8yyuMZqGEyi BjrchBOuozM6PWpJTHSHAHpWNwGv LI2nPHaLO8FQBgC1XfRcDHV3F6md bVuzKqepieHdxUThCgISrL7alDig gC2exGPqF0epBySjNKCybWVabFzq bBGxOCodYNO6EWQmiYNwIQPil3Gj T1I9DDRiJAyma2cgSAJnNWvnj1Cw KLvZWYMPEI3YWP1jqTG1COwALQBP M8lJoRK4ZdidqNL4VH96YVVkUNXh gXTfQZtaD418Z3Azd6zfrRVsTAxl AylrlUDrciO8AThONXCEVHmAXdMq WX1bYZeLB2TGPtI4JrI5QLY4DUq2 pXyoYkcmqiIdeJCoAyLLgW2xrAmy sT2ccLMaQ9qqHgTnSGHqCrElnVFg QO8IUCWzToQbSJAuE9owKNFlKX9Q SBAmP55OEmEMUTFLR91ITYEANAKZ J0XNK6iOPYMxYiJbvCP9V91qWFBv CMdlBQUpOlWrMJZ5Sh5mVyB7Ozug tUX1SCHOIIXLLOkMR0CxMFLMUHIU AHHbSW4XURxPPVDSNWVON64LRRNV OOOWA6HCZ5lSYAdOUPDBRVWKS87T DDFZKUBND2MEJTZXZOUTOXpFNRHO Ta7BVGUHRGEQEW0AAHuGOfLfSFyE A3qZPnjeCUIaU7s3Mph4PXMLRjjW XBXOTbTdLhR6XU3jMCq3nYNdPHex qYpluRD7SxMmHPGdpOHfy1AVYqPJ IQ4SLzmrVOC5WJc1JSFXTTSPNA9U OWZEX97MMHTVEXKNK1SODEXELwWQ FYUPT83MZIXELFLFG8SYB6yRBVNP XfVZRAVTO20SYVVYDTFQO7SUMQHF IZSTRfNVTuZZMS0XPDPMUZCFIS8W HBtNYcSuZMHAR6RFFiLSQ7nxSCYE UIBEOXVdAA5OTBodeuLxULPzV69q j4MUx8Vrm0jrnCnxn8WceRYrOI85 EHYhaQIeAZI9YE3cpXcvUOVtGVky vUCvZMWXUoklaxDdKMLgVK2VfN== [facility] Work Phone: Pathology report relevant history Narrative u0vxgAZmIFBjn1ciGOAqwVSeFcTw HzPpZqHmZny2NNMedfI1Oos8HXKk HFhdyS3eVRKgQPaqJ4wozfLjoVKa HULiUPp8bK8reFjeoP7eAwLvNrJp UQBXZMBdBL82XRqkjUwdjVYihDwl pDQjzKAbkWuoLT2fxOWkAzFRTCFw PIMsPTynOTBckHEhw84aIBE2RNyr Td8pZM4kaRkytiElkJZmOLvbn6eo YXIgfQ== [facility] Work Phone: [facility] Work Phone: Renal function 2000 panelon 04-24-2024 Albumin BCP dye [Mass/Vol] 2.9 g/dL Low 3.4 - 5.0 g/dL [facility] Anion gap [Moles/Vol] 14 mmol/L 10 - 20 mmol/L [facility] Calcium [Mass/Vol] 8.1 mg/dL Low 8.6 - 10. 6 mg/dL [facility] Chloride [Moles/Vol] 98 mmol/L 98 - 10 7 mmol/L [facility] CO2 [Moles/Vol] 35 mmol/L High 21 - 32 mmol/L [facility] Creatinine [Mass/Vol] 1.49 mg/dL High 0.50 - 1.30 mg/dL [facility] GFR/1.73 sq M.predicted among non-blacks MDRD (S/P/Bld) [Vol rate/Area] 49 mL/min/{1.73_m2} Low - PINF [facility] Glucose [Mass/Vol] 106 mg/dL High 74 - 99 mg/dL [facility] Interpretation and review of laboratory results Abnormal [facility] Phosphate [Mass/Vol] 3.8 mg/dL 2.5 - 4 .9 mg/dL [facility] Potassium [Moles/Vol] 3.3 mmol/L Low 3.5 - 5.3 mmol/L [facility] Sodium [Moles/Vol] 144 mmol/L 136 - 145 mmol/L [facility] Urea nitrogen [Mass/Vol] 46 mg/dL High 6 - 23 mg/dL [facility] Albumin BCP dye [Mass/Vol] 2.9 g/dL Low 3.4-5.0 [facility] Comment on above: Performed By: #### 1 9123-9 #### SYDNI Espino ([id number]) [facility] ([facility]) [address] [place] [address] Anion gap [Moles/Vol] 14 mmol/L Normal 10-20 [facility] Comment on above: Performed By: #### 1 9123-9 #### SYDNI Espino ([id number]) [facility] ([facility]) [address] [place] [address]683 Calcium [Mass/Vol] 8.1 mg/dL Low 8.6-10.6 [facility] Comment on above: Performed By: #### 1 9123-9 #### SYDNI Espino ([id number]) [facility] ([facility]) [address] [place] [address] 964[address] Chloride [Moles/Vol] 98 mmol/L Normal 98-107 [facility] Comment on above: Performed By: #### 1 9123-9 #### SYDNI Espino ([id number]) [facility] ([facility]) [address] [place] [address] 26175 CO2 [Moles/Vol] 35 mmol/L High 21-32 [facility] Comment on above: Performed By: #### 1 9123-9 #### SYDNI Espino ([id number]) [facility] ([facility]) [address] [place] [address] 20683 Creatinine [Mass/Vol] 1.49 mg/dL High 0.50-1.30 [facility] Comment on above: Performed By: #### 1 9123-9 #### SYDNI Espino ([id number]) [facility] ([facility]) [address] [place] [address] 91589 Glomerular filtration rate/1.73 sq M.predicted 49 mL/min/1.73m*2 Low >60 [facility] Comment on above: Result Comment: Calc ulations of estimated GFR are performed using the 2020 CKD-EPI Study Refit equation without the race variable for the IDMS-Traceable creatinine methods. https://jasn.asnjournals.org/content//ASN.9765348 988 Performed By: #### 1 9123-9 #### SYDNI Espino ([id number]) [facility] ([facility]) [address] [place] [address] 52642 Glucose [Mass/Vol] 106 mg/dL High 74-99 [facility] Comment on above: Performed By: #### 1 9123-9 #### SYDNI Espino ([id number]) [facility] ([facility]) [address] [place] [address] 29159 Phosphate [Mass/Vol] 3.8 mg/dL Normal 2.5-4.9 [facility] Comment on above: Result Comment: The performance characteristics of phosphorus testing in heparinized plasma have been validated by the individual laboratory site where testing is performed. Testing on heparinized plasma is not approved by the FDA; however, such approval is not necessary. Performed By: #### 1 9123-9 #### SYDNI Espino ([id number]) [facility] ([facility]) [address] [place] [address] 94818 Potassium [Moles/Vol] 3.3 mmol/L Low 3.5-5.3 [facility] Comment on above: Performed By: #### 1 9123-9 #### SYDNI Espino ([id number]) [facility] ([facility]) [address] [place] [address] Sodium [Moles/Vol] 144 mmol/L Normal 136-145 [facility] Comment on above: Performed By: #### 1 9123-9 #### SYDNI Espino ([id number]) [facility] ([facility]) [address] [place] [address] 15457 Urea nitrogen [Mass/Vol] 46 mg/dL High 6-23 [facility] Comment on above: Performed By: #### 1 9123-9 #### SYDNI Espino ([id number]) [facility] ([facility]) [address] [place] [address] 24121 XR CHEST 1 VIEWon 04-24-2024 XR CHEST 1 VIEW Interpreted By: Marek Michael, STUDY: XR CHEST 1 VIEW; 04/24/2024 5:36 am INDICATION: Signs/Symptoms:pigtail evaluation. COMPARISON: Exam dated 04/23/2024 ACCESSION NUMBER(S): [id number] ORDERING CLINICIAN: JARED GASPAR FINDINGS: AP radiograph of the chest was provided. Stable positioning of left basilar pigtail catheter. Interval increase in the amount of subcutaneous emphysema overlying the left chest wall. Enteric tube projects over the esophagus, tip not visualized. Left upper extremity PICC is in place with tip projecting over the lower SVC. CARDIOMEDIASTINAL SILHOUETTE: Cardiomediastinal silhouette is stable in size and configuration. LUNGS: There is a small left apical and basilar pneumothorax which is increased from prior exam. Right lung demonstrates mildly increased interstitial markings. No evidence of large pleural effusion. ABDOMEN: No remarkable upper abdominal findings. BONES: No acute osseous changes. IMPRESSION: 1. Interval increase in small left apical/basilar pneumothorax. In addition, there has been interval increase in subcutaneous emphysema along the left chest wall. Correlate with concern for air leak with chest tube in place. 2. Interval increase in interstitial opacities in the right lung may represent worsening edema. Recommend attention on follow-up. MACRO: None Signed by: Marek De 04/24/2024 12:16 PM Dictation workstation: [id number] Normal [facility] XR Chest Single viewon 04-24 UH MMODAL UH MMODAL [facility] Work Phone: Radiology Study observation (narrative) [facility] Work Phone: XR Chest Single viewOrdered By: Marek De on 04-24-2024 [facility] Work Phone: Bacteria identifiedon 2023 Bacteria identified Cx Nom (Body fld) Test: Sterile Fluid Culture/Smear Specimen Source: Pleural Specimen Type: Fluid Specimen Date: 04/23/2024 1035 Result Date: 04/26/202437 Result Status: Final result Resulting Lab: [facility] [id number] [place] [address] CULTURE No growth aerobically and anaerobically STAIN (3+) Moderate Polymorphonuclear leukocytes No organisms seen Normal [facility] Comment on above: Performed By: #### 1 9123-9 #### SYDNI Espino ([id number]) [facility] ([facility]) [address] [place] [address] CBC panel Auto (Bld)on 04-23 Erythrocyte distribution width (RBC) [Ratio] 14.7 % High 11.5 - 14.5 % [facility] Hematocrit (Bld) [Volume fraction] 35.3 % Low 41.0 - 52.0 % [facility] Hemoglobin (Bld) [Mass/Vol] 11.5 g/dL Low 13.5 - 17.5 g/dL [facility] Interpretation and review of laboratory results Abnormal [facility] MCH (RBC) [Entitic mass] 29.0 pg 26.0 - 34.0 pg [facility] MCHC (RBC) [Mass/Vol] 32.6 g/dL 32.0 - 36.0 g/dL [facility] MCV (RBC) [Entitic vol] 89 fL 80 - 100 fL [facility] Nucleated RBC/100 WBC (Bld) [Ratio] 0.0 % [facility] Platelets (Bld) [#/Vol] 302 10*3/uL [facility] RBC (Bld) [#/Vol] 3.97 10*6/uL Low [facility] WBC (Bld) [#/Vol] 13.1 10*3/uL High [facility] Erythrocyte distribution width (RBC) [Ratio] 14.7 % High 11.5-14.5 [facility] Comment on above: Performed By: #### 3 4529-8 #### SYDNI Espino ([id number]) [facility] ([facility]) [address] [place] [address] Hematocrit (Bld) [Volume fraction] 35.3 % Low 41.0-52.0 [facility] Comment on above: Performed By: #### 3 4529-8 #### SYDNI Espino ([id number]) [facility] ([facility]) [address] [place] [address] 18666 Hemoglobin (Bld) [Mass/Vol] 11.5 g/dL Low 13.5-17.5 [facility] Comment on above: Performed By: #### 3 4529-8 #### SYDNI Espino ([id number]) [facility] ([facility]) [address] [place] [address] 75805 MCH (RBC) [Entitic mass] 29.0 pg Normal 26.0-34.0 [facility] Comment on above: Performed By: #### 3 4529-8 #### SYDNI Espino ([id number]) [facility] ([facility]) [address] [place] [address] 14718 MCHC (RBC) [Mass/Vol] 32.6 g/dL Normal 32.0-36.0 [facility] Comment on above: Performed By: #### 3 4529-8 #### SYDNI Espino ([id number]) [facility] ([facility]) [address] [place] [address]805 MCV (RBC) [Entitic vol] 89 fL Normal 80-100 [facility] Comment on above: Performed By: #### 3 4529-8 #### SYDNI Espino ([id number]) [facility] ([facility]) [address] [place] [address] 94051 Nucleated RBC/100 WBC (Bld) [Ratio] 0.0 /100 WBCs Normal 0.0-0.0 [facility] Comment on above: Performed By: #### 3 4529-8 #### SYDNI Espino ([id number]) [facility] ([facility]) [address] [place] [address] Platelets (Bld) [#/Vol] 302 x10*3/uL Normal 150-450 [facility] Comment on above: Performed By: #### 3 4529-8 #### SYDNI Espino ([id number]) [facility] ([facility]) [address] [place] [address] RBC (Bld) [#/Vol] 3.97 x10*6/uL Low 4.50-5.90 [facility] Comment on above: Performed By: #### 3 4529-8 #### SYDNI Espino ([id number]) [facility] ([facility]) [address] [place] [address] WBC (Bld) [#/Vol] 13.1 x10*3/uL High 4.4-11.3 [facility] Comment on above: Performed By: #### 3 4529-8 #### SYDNI Espino ([id number]) [facility] ([facility]) [address] [place] [address] CT Abdomen and Pelvis W cont rast Bibiana 04-23-2024 MMODAL MMODAL [facility] Work Phone: [phone] [facility] Work Phone: [phone] TRANSFER OF OUTSIDE FILMS on 04-23-2024 CT TRANSFER OF OUTSIDE FILMS Outside images for comparison or treatment purposes, not interpreted by Radiologists. Normal [facility] CT TRANSFER OF OUTSIDE FILMS Outside images for comparison or treatment purposes, not interpreted by Radiologists. Normal [facility] Electrocardiogram, 12-lead P RN ACS symptomsOrdered By: Doug White on 04-23-2024 Atrial Rate 82 BPM [facility] Work Phone: [phone] P [place] 57 degrees [facility] Work Phone: [phone] P Offset 208 ms [facility] Work Phone: [phone] P Onset 153 ms [facility] Work Phone: [phone] TX Interval 132 ms [facility] Work Phone: [phone] Q Onset 219 ms [facility] Work Phone: [phone] QRS Count 13 beats [facility] Work Phone: [phone] QRS Duration 86 ms [facility] Work Phone: [phone] QT Interval 368 ms [facility] Work Phone: [phone] QTC Calculation(Bazett) 429 ms [facility] Work Phone: [phone] QTC Fredericia 408 ms [facility] Work Phone: [phone] R [place] 61 degrees [facility] Work Phone: [phone] T [place] 75 degrees [facility] Work Phone: [phone] T Offset 403 ms [facility] Work Phone: [phone] Ventricular Rate 82 BPM [facility] Work Phone: [phone] [facility] Work Phone: [phone] Electrocardiogram, 12-lead P RN ACS symptomson 04-23-2024 MUSE [facility] Work Phone: Glucose Test strip manual (B ld) [Mass/Vol]on 04-23-2024 Glucose [Mass/Vol] 147 mg/dL High 74 - 99 mg/dL [facility] Interpretation and review of laboratory results Abnormal [facility] Glucose [Mass/Vol] 147 mg/dL High 74-99 [facility] Comment on above: Performed By: #### 1 9123-9 #### SYDNI Espino ([id number]) [facility] ([facility]) [address] [place] [address] Glucose [Mass/Vol] 127 mg/dL High 74 - 99 mg/dL [facility] Interpretation and review of laboratory results Abnormal [facility] Glucose [Mass/Vol] 127 mg/dL High 74-99 [facility] Comment on above: Performed By: #### 1 9123-9 #### SYDNI Espino ([id number]) [facility] ([facility]) [address] [place] [address]896 Glucose [Mass/Vol] 123 mg/dL High 74 - 99 mg/dL [facility] Interpretation and review of laboratory results Abnormal [facility] Glucose [Mass/Vol] 123 mg/dL High 74-99 [facility] Comment on above: Performed By: #### 1 9123-9 #### SYDNI Espino ([id number]) [facility] ([facility]) [address] [place] [address] Magnesiumon 04-23-2024 Magnesium [Mass/Vol] 2.00 mg/dL 1.60 - 2.40 mg/dL [facility] Magnesium [Mass/Vol] 2.00 mg/dL Normal 1.60-2.40 [facility] Comment on above: Performed By: #### 3 4529-8 #### SYDNI Espino ([id number]) [facility] ([facility]) [address] [place] [address] 99759 Magnesium [Mass/Vol]on 04-23 Interpretation and review of laboratory results Normal [facility] No Panel Informationon 04-23 MMODAL MMODAL [facility] Work Phone: [facility] Work Phone: [facility] Non-towboat operator cytology studyon Non-gynecological cytology method study Pathology report.total SEE COMMENT Non-gynecologic Cytology Case: [id number] Authorizing Provider: Jared Gaspar MD Collected: 04/23/2024 1035 Ordering Location: [facility] Received: 04/23/[address] [place] [address] Pathologist: Lis Scott MD Specimen: PLEURAL FLUID LEFT SIDE Path report.final diagnosis SEE COMMENT A. PLEURAL FLUID LEFT SIDE , CYTOLOGY AND CELL BLOCK: No malignant cells identified Specimen consists of reactive mesothelial cells and inflammatory cells Laboratory comment SEE COMMENT Slide(s) initially screened by ROGER MICHELLE, CT at [facility] [address] [address] [facility] [phone] By the signature on this report, the individual or group listed as making the Final Interpretation/Diagnosis certifies that they have reviewed this case. Path report.relevant Hx Patient with multiple malignancies. L pleural effusion. Eval for malignant cells Path report.gross observation SEE COMMENT A. PLEURAL FLUID LEFT SIDE. Received 10 ml yellow cloudy fluid with particles in sterile cup . Laboratory comment SEE COMMENT A1 Slides Only (No Block) A1-1 Pap Stain NGYN ThinPrep A2 Cell Block A2-1 H&E Normal [facility] Renal function 2000 panelon 04-23-2024 Albumin BCP dye [Mass/Vol] 3.3 g/dL Low 3.4 - 5.0 g/dL [facility] Anion gap [Moles/Vol] 14 mmol/L 10 - 20 mmol/L [facility] Calcium [Mass/Vol] 8.5 mg/dL Low 8.6 - 10. 6 mg/dL [facility] Chloride [Moles/Vol] 100 mmol/L 98 - 10 7 mmol/L [facility] CO2 [Moles/Vol] 33 mmol/L High 21 - 32 mmol/L [facility] Creatinine [Mass/Vol] 1.42 mg/dL High 0.50 - 1.30 mg/dL [facility] GFR/1.73 sq M.predicted among non-blacks MDRD (S/P/Bld) [Vol rate/Area] 52 mL/min/{1.73_m2} Low - PINF [facility] Glucose [Mass/Vol] 116 mg/dL High 74 - 99 mg/dL [facility] Interpretation and review of laboratory results Abnormal [facility] Phosphate [Mass/Vol] 3.3 mg/dL 2.5 - 4 .9 mg/dL [facility] Potassium [Moles/Vol] 3.5 mmol/L 3.5 - 5.3 mmol/L [facility] Sodium [Moles/Vol] 143 mmol/L 136 - 145 mmol/L [facility] Urea nitrogen [Mass/Vol] 39 mg/dL High 6 - 23 mg/dL [facility] Albumin BCP dye [Mass/Vol] 3.3 g/dL Low 3.4-5.0 [facility] Comment on above: Performed By: #### 3 4529-8 #### SYDNI Espino ([id number]) [facility] ([facility]) [id number] [place] [address] 84182 Anion gap [Moles/Vol] 14 mmol/L Normal 10-20 [facility] Comment on above: Performed By: #### 3 4529-8 #### SYDNI Espino ([id number]) [facility] ([facility]) [address] [place] [address] 83020 Calcium [Mass/Vol] 8.5 mg/dL Low 8.6-10.6 [facility] Comment on above: Performed By: #### 3 4529-8 #### SYDNI Espino ([id number]) [facility] ([facility]) [address] [place] [address] 22454 Chloride [Moles/Vol] 100 mmol/L Normal 98-107 [facility] Comment on above: Performed By: #### 3 4529-8 #### SYDNI Espino ([id number]) [facility] ([facility]) [address] [place] [address] 11006 CO2 [Moles/Vol] 33 mmol/L High 21-32 [facility] Comment on above: Performed By: #### 3 4529-8 #### SYDNI Espino ([id number]) [facility] ([facility]) [address] [place] [address] 70794 Creatinine [Mass/Vol] 1.42 mg/dL High 0.50-1.30 [facility] Comment on above: Performed By: #### 3 4529-8 #### SYDNI Espino ([id number]) [facility] ([facility]) [address] [place] [address] 62310 Glomerular filtration rate/1.73 sq M.predicted 52 mL/min/1.73m*2 Low >60 [facility] Comment on above: Result Comment: Calc ulations of estimated GFR are performed using the 2020 CKD-EPI Study Refit equation without the race variable for the IDMS-Traceable creatinine methods. https://jasn.asnjournals.org/content//ASN.0757135 988 Performed By: #### 3 4529-8 #### SYDNI Espino ([id number]) [facility] ([facility]) [address] [place] [address] Glucose [Mass/Vol] 116 mg/dL High 74-99 [facility] Comment on above: Performed By: #### 3 4529-8 #### SYDNI Espino ([id number]) [facility] ([facility]) [address] [place] [address] 65756 Phosphate [Mass/Vol] 3.3 mg/dL Normal 2.5-4.9 [facility] Comment on above: Result Comment: The performance characteristics of phosphorus testing in heparinized plasma have been validated by the individual laboratory site where testing is performed. Testing on heparinized plasma is not approved by the FDA; however, such approval is not necessary. Performed By: #### 3 4529-8 #### SYDNI Espino ([id number]) [facility] ([facility]) [address] [place] [address] 07967 Potassium [Moles/Vol] 3.5 mmol/L Normal 3.5-5.3 [facility] Comment on above: Performed By: #### 3 4529-8 #### SYDNI Espino ([id number]) [facility] ([facility]) [address] [place] [address] 26179 Sodium [Moles/Vol] 143 mmol/L Normal 136-145 [facility] Comment on above: Performed By: #### 3 4529-8 #### SYDNI Espino ([id number]) [facility] ([facility]) [address] [place] [address] 39285 Urea nitrogen [Mass/Vol] 39 mg/dL High 6-23 [facility] Comment on above: Performed By: #### 3 4529-8 #### SYDNI Espino ([id number]) [facility] ([facility]) [address] [place] [address] Study Interpretation of outs du studyon 04-23-2024 IMAGING IMAGING [facility] MMODAL UH MMODAL [facility] Work Phone: [facility] Work Phone: XR ABDOMEN 1 VIEWon 04-23-20 XR ABDOMEN 1 VIEW Interpreted By: Buzz Desouza, STUDY: XR CHEST 1 VIEW; XR ABDOMEN 1 VIEW; 04/23/2024 11:21 am INDICATION: Signs/Symptoms:Chest tube placement; Signs/Symptoms:NG tube placement confirmation. COMPARISON: 04/19/2024 ACCESSION NUMBER(S): [id number]; [id number] ORDERING CLINICIAN: JARED GASPAR FINDINGS: Single-view of the chest and single-view of the abdomen. Left upper extremity PICC is in place with the tip projecting over upper right atrium. Pigtail catheter is projecting over the left lower chest/left upper quadrant of the abdomen. Enteric tube is in place with the tip projecting over stomach. Cardiac silhouette size is within normal limits. Left lung base airspace opacity. Lucency in left lung base. Right lung is clear. Nonobstructive bowel gas pattern with positive contrast identified throughout the colon. No definite evidence of free air in the upper abdomen. No acute osseous abnormality. IMPRESSION: 1. Small left basilar pneumothorax. Recommend follow-up radiograph. 2. Left basilar and retrocardiac consolidation with small left pleural effusion. 3. Medical devices as described above. 4. Nonobstructive bowel gas pattern. Signed by: Buzz Yeager 04/23/2024 11:32 AM Dictation workstation: [id number] Normal [facility] XR Abdomen Single viewon Radiology Study observation (narrative) [facility] Work Phone: XR CHEST 1 VIEWon 04-23-2024 XR CHEST 1 VIEW Interpreted By: Buzz Desouza, STUDY: XR CHEST 1 VIEW; XR ABDOMEN 1 VIEW; 04/23/2024 11:21 am INDICATION: Signs/Symptoms:Chest tube placement; Signs/Symptoms:NG tube placement confirmation. COMPARISON: 04/19/2024 ACCESSION NUMBER(S): [id number]; [id number] ORDERING CLINICIAN: JARED GASPAR FINDINGS: Single-view of the chest and single-view of the abdomen. Left upper extremity PICC is in place with the tip projecting over upper right atrium. Pigtail catheter is projecting over the left lower chest/left upper quadrant of the abdomen. Enteric tube is in place with the tip projecting over stomach. Cardiac silhouette size is within normal limits. Left lung base airspace opacity. Lucency in left lung base. Right lung is clear. Nonobstructive bowel gas pattern with positive contrast identified throughout the colon. No definite evidence of free air in the upper abdomen. No acute osseous abnormality. IMPRESSION: 1. Small left basilar pneumothorax. Recommend follow-up radiograph. 2. Left basilar and retrocardiac consolidation with small left pleural effusion. 3. Medical devices as described above. 4. Nonobstructive bowel gas pattern. Signed by: Buzz Yeager 04/23/2024 11:32 AM Dictation workstation: [id number] [facility] XR Chest Single viewon 04-23 Radiology Study observation (narrative) [facility] Work Phone: Blood type and Indirect anti body screen panel (Bld)on 04-22-2024 ABO group Nom (Bld) A [facility] Blood group antibody screen Ql Negative [facility] D Ag Ql (Bld) Positive [facility] ABO group Nom (Bld) A Normal [facility] Comment on above: Performed By: #### 5 7021-8 #### SYDNI Espino ([id number]) [facility] ([facility]) [address] [place] [address] Blood group antibody screen Ql Negative [facility] Comment on above: Performed By: #### 5 7021-8 #### SYDNI Espino ([id number]) [facility] ([facility]) [address] [place] [address] D Ag Ql (Bld) Positive [facility] Comment on above: Performed By: #### 5 7021-8 #### SYDNI Espino ([id number]) [facility] ([facility]) [id number] [place] [address] 09567 CBC panel Auto (Bld)on 04-22 Erythrocyte distribution width (RBC) [Ratio] 15.0 % High 11.5 - 14.5 % [facility] Hematocrit (Bld) [Volume fraction] 32.1 % Low 41.0 - 52.0 % [facility] Hemoglobin (Bld) [Mass/Vol] 10.1 g/dL Low 13.5 - 17.5 g/dL [facility] Interpretation and review of laboratory results Abnormal [facility] MCH (RBC) [Entitic mass] 28.6 pg 26.0 - 34.0 pg [facility] MCHC (RBC) [Mass/Vol] 31.5 g/dL Low 32.0 - 36.0 g/dL [facility] MCV (RBC) [Entitic vol] 91 fL 80 - 100 fL [facility] Nucleated RBC/100 WBC (Bld) [Ratio] 0.0 % [facility] Platelets (Bld) [#/Vol] 268 10*3/uL [facility] RBC (Bld) [#/Vol] 3.53 10*6/uL Low [facility] WBC (Bld) [#/Vol] 11.0 10*3/uL [facility] Erythrocyte distribution width (RBC) [Ratio] 15.0 % High 11.5-14.5 [facility] Comment on above: Performed By: #### 5 7021-8 #### SYDNI Espino ([id number]) [facility] ([facility]) [address] [place] [address] Hematocrit (Bld) [Volume fraction] 32.1 % Low 41.0-52.0 [facility] Comment on above: Performed By: #### 5 7021-8 #### SYDNI Espino ([id number]) [facility] ([facility]) [address] [place] [address] Hemoglobin (Bld) [Mass/Vol] 10.1 g/dL Low 13.5-17.5 [facility] Comment on above: Performed By: #### 5 7021-8 #### SYDNI Espino ([id number]) [facility] ([facility]) [address] [place] [address] 48281 MCH (RBC) [Entitic mass] 28.6 pg Normal 26.0-34.0 [facility] Comment on above: Performed By: #### 5 7021-8 #### SYDNI Espino ([id number]) [facility] ([facility]) [address] [place] [address] 42361 MCHC (RBC) [Mass/Vol] 31.5 g/dL Low 32.0-36.0 [facility] Comment on above: Performed By: #### 5 7021-8 #### SYDNI Espino ([id number]) [facility] ([facility]) [address] [place] [address] 00142 MCV (RBC) [Entitic vol] 91 fL Normal 80-100 [facility] Comment on above: Performed By: #### 5 7021-8 #### SYDNI Espino ([id number]) [facility] ([facility]) [address] [place] [address] 37441 Nucleated RBC/100 WBC (Bld) [Ratio] 0.0 /100 WBCs Normal 0.0-0.0 [facility] Comment on above: Performed By: #### 5 7021-8 #### SYDNI Espino ([id number]) [facility] ([facility]) [address] [place] [address] 66089 Platelets (Bld) [#/Vol] 268 x10*3/uL Normal 150-450 [facility] Comment on above: Performed By: #### 5 7021-8 #### SYDNI Espino ([id number]) [facility] ([facility]) [address] [place] [address] 25378 RBC (Bld) [#/Vol] 3.53 x10*6/uL Low 4.50-5.90 [facility] Comment on above: Performed By: #### 5 7021-8 #### SYDNI Espino ([id number]) [facility] ([facility]) [address] [place] [address] WBC (Bld) [#/Vol] 11.0 x10*3/uL Normal 4.4-11.3 [facility] Comment on above: Performed By: #### 5 7021-8 #### SYDNI GARZAKEHINDELISA Espino ([id number]) [facility] ([facility]) [address] [place] [address] CT ABDOMEN PELVIS W IV CONTR Pb 04-22-2024 CT ABDOMEN PELVIS W IV CONTRAST Interpreted By: Nabeel Logan and Kelly Rory STUDY: CT ABDOMEN PELVIS W IV CONTRAST; 04/22/2024 10:09 am INDICATION: Signs/Symptoms:abdominal pain, evaluate for intraabdominal pathology, CT AP w/ IV and PO contrast. History of bladder cancer and prostate cancer status post cystectomy, prostatectomy, and colectomy and ileal conduit formation. COMPARISON: Abdominal radiograph dated 04/21/2024 CT of the abdomen and pelvis dated 04/19/2024 ACCESSION NUMBER(S): [id number] ORDERING CLINICIAN: JARED GASPAR TECHNIQUE: CT of the abdomen and pelvis was performed. Standard contiguous axial images were obtained at 3 mm slice thickness through the abdomen and pelvis. Coronal and sagittal reconstructions at 3 mm slice thickness were performed. 80 ml of contrast Omnipaque 350 were administered intravenously without immediate complication. Additionally, positive oral contrast was administered. FINDINGS: LOWER CHEST: Similar appearance of a moderate-sized left pleural effusion with similar atelectasis of the left lower lung. Unchanged appearance of a 6 mm pleural-based nodule along the lingula and anterior left lower lobe. Interval development of trace right pleural effusion with ground-glass densities within the dependent portion of the right lower lobe. ABDOMEN: LIVER: The liver is normal in size measuring 14.5 cm in craniocaudal dimension. There is a 8 mm cyst without internal septation or solid component within hepatic segment 4B which is unchanged compared to prior examination and compatible with a benign simple hepatic cysts. No additional hepatic lesions or abnormal enhancement. BILE DUCTS: The intrahepatic bile ducts and extrahepatic ducts are normal in caliber. GALLBLADDER: The gallbladder is nondistended without wall thickening or abnormal enhancement. There is a 0.9 cm rounded peripherally radiopaque lesion within the gallbladder neck unchanged compared to prior examination compatible with cholelithiasis. PANCREAS: The pancreas is within normal limits without abnormal enhancement or focal lesion. SPLEEN: There is a hypoattenuating 1.1 cm lesion within the spleen (series 2, image 37) which is not definitely visualized on prior examination and may represent a small hemangioma versus artifact. The spleen is otherwise normal in size without focal lesion. ADRENAL GLANDS: The adrenal glands appear within normal limits. KIDNEYS AND URETERS: Unchanged appearance of severe right-sided hydroureteronephrosis with similar stranding of the perirenal fat and significant cortical thinning; no suspicious right renal lesions. There is ureteral thickening and enhancement of the distal right ureter. The left kidney is normal in size with similar appearance of multiple simple benign attenuating renal cysts measuring up to 2.1 cm. No left-sided hydroureteronephrosis. The anastomosis of the left ureter to the ileal conduit appears within normal limits. PELVIS: BLADDER: Status post cystectomy. REPRODUCTIVE ORGANS: Status post prostatectomy. No pelvic masses. BOWEL: Status post colectomy and ileal conduit formation. A enteric tube is noted terminating within the gastric body with positive oral contrast filling the stomach lumen. The stomach wall appears within normal limits. There is positive oral contrast throughout the small bowel with passage into the large bowel to the level of the rectum without evidence of obstruction. The jejunum again demonstrates mild dilation up to 3.3 cm which is improved compared to prior examination at which time it measured 3.7 cm. There is circumferential bowel wall thickening of the jejunum similar compared to prior examination; there is interval improvement of diffuse mesenteric stranding. The large bowel is normal in caliber without bowel wall thickening or abnormal enhancement. Similar appearance of right lower quadrant ostomy formation without peristomal herniation, compatible with ileal conduit formation. 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 There is focal dilation of the proximal right internal iliac artery measuring 1.0 cm which is unchanged compared to prior examination. PERITONEUM/RETROPERITONEUM/L YMPH NODES: Interval decreased volume and density of abdominopelvic ascites. There are multiple nonenlarged abdominopelvic lymph nodes which are unchanged compared to prior examination. BONES AND ABDOMINAL WALL: No suspicious osseous lesions are identified. Degenerative discogenic disease (more content not included)... Normal [facility] CT Abdomen and Pelvis W cont rast Bibiana 04-22-2024 Radiology Study observation (narrative) [facility] Work Phone: ECG 12-LEADon 04-22-2024 ECG 12-LEAD Ventricular Rate 82 Atrial Rate 82 P-R Interval 132 QRS Duration 86 Q-T Interval 368 QTC Calculation(Bazett) 429 P [place] 57 R [place] 61 T [place] 75 QRS Count 13 Q Onset 219 P Onset 153 P Offset 208 T Offset 403 QTC Fredericia 408 Diagnosis Normal sinus rhythm Normal ECG Confirmed by Doug White ([id number]) on 04/23/2024 1:25:03 PM Normal [facility] Electrocardiogram, 12-lead P RN ACS symptomsOrdered By: Ean Melvin on 04-22-2024 Atrial Rate 92 BPM [facility] Work Phone: [phone] P [place] 57 degrees [facility] Work Phone: [phone] P Offset 206 ms [facility] Work Phone: [phone] P Onset 154 ms [facility] Work Phone: [phone] TX Interval 130 ms [facility] Work Phone: [phone] Q Onset 219 ms [facility] Work Phone: [phone] QRS Count 15 beats [facility] Work Phone: [phone] QRS Duration 74 ms [facility] Work Phone: [phone] QT Interval 366 ms [facility] Work Phone: [phone] QTC Calculation(Bazett) 452 ms [facility] Work Phone: [phone] QTC Fredericia 422 ms [facility] Work Phone: [phone] R [place] 63 degrees [facility] Work Phone: [phone] T [place] 70 degrees [facility] Work Phone: T Offset 402 ms [facility] Work Phone: Ventricular Rate 92 BPM [facility] Work Phone: [facility] Work Phone: Electrocardiogram, 12-lead P RN ACS symptomson 04-22-2024 [facility] Work Phone: Glucose Test strip manual (B ld) [Mass/Vol]on 04-22-2024 Glucose [Mass/Vol] 120 mg/dL High 74 - 99 mg/dL [facility] Interpretation and review of laboratory results Abnormal [facility] Glucose [Mass/Vol] 120 mg/dL High 74-99 [facility] Comment on above: Performed By: #### 3 4529-8 #### SYDNI Espino ([id number]) [facility] ([facility]) [address] [place] [address] 92364 Glucose [Mass/Vol] 159 mg/dL High 74 - 99 mg/dL [facility] Interpretation and review of laboratory results Abnormal [facility] Glucose [Mass/Vol] 159 mg/dL High 74-99 [facility] Comment on above: Performed By: #### 3 4529-8 #### SYDNI Espino ([id number]) [facility] ([facility]) [address] [place] [address] 64466 Glucose [Mass/Vol] 142 mg/dL High 74 - 99 mg/dL [facility] Interpretation and review of laboratory results Abnormal [facility] Glucose [Mass/Vol] 142 mg/dL High 74-99 [facility] Comment on above: Performed By: #### 3 4529-8 #### SYDNI Espino ([id number]) [facility] ([facility]) [address] [place] [address] 38605 Glucose [Mass/Vol] 150 mg/dL High 74 - 99 mg/dL [facility] Interpretation and review of laboratory results Abnormal [facility] Glucose [Mass/Vol] 150 mg/dL High 74-99 [facility] Comment on above: Performed By: #### 5 7021-8 #### SYDNI Espino ([id number]) [facility] ([facility]) [address] [place] [address] 71597 Glucose [Mass/Vol] 133 mg/dL High 74 - 99 mg/dL [facility] Interpretation and review of laboratory results Abnormal [facility] Glucose [Mass/Vol] 133 mg/dL High 74-99 [facility] Comment on above: Performed By: #### 5 7021-8 #### SYDNI Espino ([id number]) [facility] ([facility]) [address] [place] [address] 68273 Magnesiumon 04-22-2024 Magnesium [Mass/Vol] 1.88 mg/dL 1.60 - 2.40 mg/dL [facility] Magnesium [Mass/Vol] 1.88 mg/dL Normal 1.60-2.40 [facility] Comment on above: Performed By: #### 5 7021-8 #### SYDNI Espino ([id number]) [facility] ([facility]) [address] [place] [address] 62526 Magnesium [Mass/Vol]on 04-22 Interpretation and review of laboratory results Normal [facility] No Panel Informationon 04-22 [facility] PT and aPTT panel Coag (PPP) on 04-22-2024 aPTT Coag (PPP) [Time] 29 s [facility] INR Coag (PPP) [Relative time] 1.0 {INR} 0.9 - 1.1 [facility] Interpretation and review of laboratory results Normal [facility] PT Coag (PPP) [Time] 10.8 s [facility] aPTT Coag (PPP) [Time] 29 s Normal 27-38 [facility] Comment on above: Order Comment: The A PTT is no longer used for monitoring Unfractionated Heparin Therapy. For monitoring Heparin Therapy, use the Heparin Assay. Performed By: #### 5 7021-8 #### SYDNI Espino ([id number]) [facility] ([facility]) [id number] [place] [address] 56072 INR Coag (PPP) [Relative time] 1.0 Normal 0.9-1.1 [facility] Comment on above: Order Comment: The A PTT is no longer used for monitoring Unfractionated Heparin Therapy. For monitoring Heparin Therapy, use the Heparin Assay. Performed By: #### 5 7021-8 #### SYDNI Espino ([id number]) [facility] ([facility]) [address] [place] [address] 52521 PT Coag (PPP) [Time] 10.8 s Normal 9.8-12.8 [facility] Comment on above: Order Comment: The A PTT is no longer used for monitoring Unfractionated Heparin Therapy. For monitoring Heparin Therapy, use the Heparin Assay. Performed By: #### 5 7021-8 #### SYDNI Espino ([id number]) [facility] ([facility]) [address] [place] [address] 62479 Renal function 2000 panelon 04-22-2024 Albumin BCP dye [Mass/Vol] 3.1 g/dL Low 3.4 - 5.0 g/dL [facility] Anion gap [Moles/Vol] 14 mmol/L 10 - 20 mmol/L [facility] Calcium [Mass/Vol] 8.1 mg/dL Low 8.6 - 10. 6 mg/dL [facility] Chloride [Moles/Vol] 102 mmol/L 98 - 10 7 mmol/L [facility] CO2 [Moles/Vol] 34 mmol/L High 21 - 32 mmol/L [facility] Creatinine [Mass/Vol] 1.32 mg/dL High 0.50 - 1.30 mg/dL [facility] GFR/1.73 sq M.predicted among non-blacks MDRD (S/P/Bld) [Vol rate/Area] 57 mL/min/{1.73_m2} Low - PINF [facility] Glucose [Mass/Vol] 118 mg/dL High 74 - 99 mg/dL [facility] Interpretation and review of laboratory results Abnormal [facility] Phosphate [Mass/Vol] 3.2 mg/dL 2.5 - 4 .9 mg/dL [facility] Potassium [Moles/Vol] 3.6 mmol/L 3.5 - 5.3 mmol/L [facility] Sodium [Moles/Vol] 146 mmol/L High 136 - 145 mmol/L [facility] Urea nitrogen [Mass/Vol] 33 mg/dL High 6 - 23 mg/dL [facility] Albumin BCP dye [Mass/Vol] 3.1 g/dL Low 3.4-5.0 [facility] Comment on above: Performed By: #### 5 7021-8 #### SYDNI Espino ([id number]) [facility] ([facility]) [address] [place] [address] 45132 Anion gap [Moles/Vol] 14 mmol/L Normal 10-20 [facility] Comment on above: Performed By: #### 5 7021-8 #### SYDNI Espino ([id number]) [facility] ([facility]) [address] [place] [address] 34680 Calcium [Mass/Vol] 8.1 mg/dL Low 8.6-10.6 [facility] Comment on above: Performed By: #### 5 7021-8 #### SYDNI QUINN L ([id number]) [facility] ([facility]) [address] [place] [address] 36947 Chloride [Moles/Vol] 102 mmol/L Normal 98-107 [facility] Comment on above: Performed By: #### 5 7021-8 #### SYDNI QUINN L ([id number]) [facility] ([facility]) [address] [place] [address] 16049 CO2 [Moles/Vol] 34 mmol/L High 21-32 [facility] Comment on above: Performed By: #### 5 7021-8 #### SYDNI QUINN L ([id number]) [facility] ([facility]) [address] [place] [address] 28782 Creatinine [Mass/Vol] 1.32 mg/dL High 0.50-1.30 [facility] Comment on above: Performed By: #### 5 7021-8 #### SYDNI Espino ([id number]) [facility] ([facility]) [address] [place] [address] 04365 Glomerular filtration rate/1.73 sq M.predicted 57 mL/min/1.73m*2 Low >60 [facility] Comment on above: Result Comment: Calc ulations of estimated GFR are performed using the 2020 CKD-EPI Study Refit equation without the race variable for the IDMS-Traceable creatinine methods. https://jasn.asnjournals.org/content/early/ASN.5510665 988 Performed By: #### 5 7021-8 #### SYDNI Espino ([id number]) [facility] ([facility]) [address] [place] [address] 29293 Glucose [Mass/Vol] 118 mg/dL High 74-99 [facility] Comment on above: Performed By: #### 5 7021-8 #### SYDNI Espino ([id number]) [facility] ([facility]) [address] [place] [address] 91067 Phosphate [Mass/Vol] 3.2 mg/dL Normal 2.5-4.9 [facility] Comment on above: Result Comment: The performance characteristics of phosphorus testing in heparinized plasma have been validated by the individual laboratory site where testing is performed. Testing on heparinized plasma is not approved by the FDA; however, such approval is not necessary. Performed By: #### 5 7021-8 #### SYDNI Espino ([id number]) [facility] ([facility]) [address] [place] [address] 09121 Potassium [Moles/Vol] 3.6 mmol/L Normal 3.5-5.3 [facility] Comment on above: Performed By: #### 5 7021-8 #### SYDNI Espino ([id number]) [facility] ([facility]) [address] [place] [address] 88602 Sodium [Moles/Vol] 146 mmol/L High 136-145 [facility] Comment on above: Performed By: #### 5 7021-8 #### SYDNI Espino ([id number]) [facility] ([facility]) [address] [place] [address] 82934 Urea nitrogen [Mass/Vol] 33 mg/dL High 6-23 [facility] Comment on above: Performed By: #### 5 7021-8 #### SYDNI Espino ([id number]) [facility] ([facility]) [address] [place] [address] 23878 CBC panel Auto (Bld)on 04-21 Erythrocyte distribution width (RBC) [Ratio] 15.0 % High 11.5-14.5 [facility] Comment on above: Performed By: #### 5 8410-2 ####SYDNI Espino ([id number])[facility] ([facility])[address] [place] [address] 31025 Hematocrit (Bld) [Volume fraction] 32.7 % Low 41.0-52.0 [facility] Comment on above: Performed By: #### 5 8410-2 ####SYDNI Espino ([id number])[facility] ([facility])[address] [place] [address] 41093 Hemoglobin (Bld) [Mass/Vol] 10.5 g/dL Low 13.5-17.5 [facility] Comment on above: Performed By: #### 5 8410-2 ####SYDNI Espino ([id number])[facility] ([facility])[address] [place] [address] 70862 MCH (RBC) [Entitic mass] 29.2 pg Normal 26.0-34.0 [facility] Comment on above: Performed By: #### 5 8410-2 ####SYDNI Espino ([id number])[facility] ([facility])[address] [place] [address] 38616 MCHC (RBC) [Mass/Vol] 32.1 g/dL Normal 32.0-36.0 [facility] Comment on above: Performed By: #### 5 8410-2 ####SYDNI Espino ([id number])[facility] ([facility])[address] [place] [address] MCV (RBC) [Entitic vol] 91 fL Normal 80-100 [facility] Comment on above: Performed By: #### 5 8410-2 ####SYDNI Espino ([id number])[facility] ([facility])[address] [place] [address] 41411 Nucleated RBC/100 WBC (Bld) [Ratio] 0.0 /100 WBCs Normal 0.0-0.0 [facility] Comment on above: Performed By: #### 5 8410-2 ####SYDNI Espino ([id number])[facility] ([facility])[address] [place] [address] Platelets (Bld) [#/Vol] 324 x10*3/uL Normal 150-450 [facility] Comment on above: Performed By: #### 5 8410-2 ####SYDNI Espino ([id number])[facility] [facility] ([facility])[address] [place] [address]61 RBC (Bld) [#/Vol] 3.59 x10*6/uL Low 4.50-5.90 [facility] Comment on above: Performed By: #### 5 8410-2 ####SYDNI Espino ([id number])[facility] ([facility])[address] [place] [address] 04968 WBC (Bld) [#/Vol] 10.5 x10*3/uL Normal 4.4-11.3 [facility] Comment on above: Performed By: #### 5 8410-2 ####SYDNI Espino ([id number])[facility] ([facility])[address] [place] [address] ECG 12-LEADon 04-21-2024 ECG 12-LEAD Ventricular Rate 92 Atrial Rate 92 P-R Interval 130 QRS Duration 74 Q-T Interval 366 QTC Calculation(Bazett) 452 P [place] 57 R [place] 63 T [place] 70 QRS Count 15 Q Onset 219 P Onset 154 P Offset 206 T Offset 402 QTC Fredericia 422 Diagnosis Poor data quality, interpretation may be adversely affected Sinus rhythm with frequent Premature ventricular complexes Otherwise normal ECG Confirmed by Ean Melvin ([id number]) on 04/22/2024 2:54:13 PM Normal [facility] Glucose Test strip manual (B ld) [Mass/Vol]on 04-21-2024 Glucose [Mass/Vol] 118 mg/dL High 74 - 99 mg/dL [facility] Interpretation and review of laboratory results Abnormal [facility] Glucose [Mass/Vol] 118 mg/dL High 74-99 [facility] Comment on above: Performed By: #### 5 7021-8 #### SYDNI Espino ([id number]) [facility] ([facility]) [address] [place] [address] Glucose [Mass/Vol] 144 mg/dL High 74 - 99 mg/dL [facility] Interpretation and review of laboratory results Abnormal [facility] Glucose [Mass/Vol] 144 mg/dL High 74-99 [facility] Comment on above: Performed By: #### 5 7021-8 #### SYDNI Espino ([id number]) [facility] ([facility]) [address] [place] [address] Glucose [Mass/Vol] 143 mg/dL High 74 - 99 mg/dL [facility] Interpretation and review of laboratory results Abnormal [facility] Glucose [Mass/Vol] 143 mg/dL High 74-99 [facility] Comment on above: Performed By: #### 2 341-6 ####SYDNI Espino ([id number])[facility] ([facility])[address] [place] [address] Glucose [Mass/Vol] 143 mg/dL High 74 - 99 mg/dL [facility] Interpretation and review of laboratory results Abnormal [facility] Glucose [Mass/Vol] 143 mg/dL High 74-99 [facility] Comment on above: Performed By: #### 2 341-6 ####SYDNI Espino ([id number])[facility] ([facility])[address] [place] [address] MRSA isol Org specific cx Ql (Nose)Ordered By: Teetee Lu on 04-21-2024 Interpretation and review of laboratory results Normal [facility] Staphylococcus sp identified Org specific cx Nom (Unsp spec) No Staphylococcus aureus isolated [facility] Magnesiumon 04-21-2024 Magnesium [Mass/Vol] 1.92 mg/dL Normal 1.60-2.40 [facility] Comment on above: Performed By: #### 1 9123-9 ####SYDNI Espino ([id number])[facility] ([facility])[address] [place] [address] 72799 Renal function 2000 panelon 04-21-2024 Albumin BCP dye [Mass/Vol] 3.3 g/dL Low 3.4-5.0 [facility] Comment on above: Performed By: #### 2 4362-6 ####SYDNI Espino ([id number])[facility] ([facility])[address] [place] [address] Anion gap [Moles/Vol] 13 mmol/L Normal 10-20 [facility] Comment on above: Performed By: #### 2 4362-6 ####SYDNI Espino ([id number])[facility] ([facility])[address] [place] [address] Calcium [Mass/Vol] 8.9 mg/dL Normal 8.6-10.6 [facility] Comment on above: Performed By: #### 2 4362-6 ####SYDNI Espino ([id number])[facility] ([facility])[address] [place] [address] Chloride [Moles/Vol] 103 mmol/L Normal 98-107 [facility] Comment on above: Performed By: #### 2 4362-6 ####SYDNI Espino ([id number])[facility] ([facility])[address] [place] [address] CO2 [Moles/Vol] 34 mmol/L High 21-32 [facility] Comment on above: Performed By: #### 2 4362-6 ####SYDNI Espino ([id number])[facility] ([facility])[address] [place] [address] Creatinine [Mass/Vol] 1.41 mg/dL High 0.50-1.30 [facility] Comment on above: Performed By: #### 2 4362-6 ####SYDNI Espino ([id number])[facility] ([facility])[address] [place] [address] Glomerular filtration rate/1.73 sq M.predicted 52 mL/min/1.73m*2 Low >60 [facility] Comment on above: Result Comment: Calc ulations of estimated GFR are performed using the 2020 CKD-EPI Study Refit equation without the race variable for the IDMS-Traceable creatinine methods. https://jasn.asnjournals.org/content//ASN.6118111 988 Performed By: #### 2 4362-6 ####SYDNI Espino ([id number])[facility] ([facility])[address] [place] [address] Glucose [Mass/Vol] 123 mg/dL High 74-99 [facility] Comment on above: Performed By: #### 2 4362-6 ####SYDNI Espino ([id number])[facility] ([facility])[address] [place] [address] Phosphate [Mass/Vol] 3.1 mg/dL Normal 2.5-4.9 [facility] Comment on above: Result Comment: The performance characteristics of phosphorus testing in heparinized plasma have been validated by the individual laboratory site where testing is performed. Testing on heparinized plasma is not approved by the FDA; however, such approval is not necessary. Performed By: #### 2 4362-6 ####SYDNI MANER L ([id number])[facility] ([facility])[address] [place] [address] Potassium [Moles/Vol] 3.3 mmol/L Low 3.5-5.3 [facility] Comment on above: Performed By: #### 2 4362-6 ####SYDNI SCHMOTZER L ([id number])[facility] ([facility])[address] [place] [address] Sodium [Moles/Vol] 147 mmol/L High 136-145 [facility] Comment on above: Performed By: #### 2 4362-6 ####SYDNI GARZAMOTZER L ([id number])[facility] ([facility])[address] [place] [address] Urea nitrogen [Mass/Vol] 27 mg/dL High 6-23 [facility] Comment on above: Performed By: #### 2 4362-6 ####SYDNI FOXTZER L ([id number])[facility] ([facility])[address] [place] [address] XR ABDOMEN 1 VIEWon 04-21-20 XR ABDOMEN 1 VIEW Interpreted By: Buzz Desouza, STUDY: XR ABDOMEN 1 VIEW; 04/21/2024 2:11 pm INDICATION: Signs/Symptoms:SBO. COMPARISON: Radiograph dated 04/21/2024, 11:21 a.m. ACCESSION NUMBER(S): [id number] ORDERING CLINICIAN: JARED GASPAR FINDINGS: Single-view of the abdomen and pelvis. Enteric tube is in place with the tip projecting over the stomach. Nonobstructive bowel gas pattern. Positive contrast is identified throughout the loops of colon. Limited evaluation of pneumoperitoneum on supine imaging, however no gross evidence of free air is noted. Iliac artery stents are in place. Consolidation and effusion in left lung base. Osseous structures demonstrate no acute bony changes. IMPRESSION: 1. Nonobstructive bowel gas pattern with positive contrast identified throughout the loops of colon. Signed by: Buzz Yeager 04/21/2024 2:42 PM Dictation workstation: [id number] [facility] XR ABDOMEN 1 VIEW Interpreted By: Buzz Desouza, STUDY: XR ABDOMEN 1 VIEW; 04/21/2024 11:37 am INDICATION: Signs/Symptoms:NG placement. COMPARISON: Radiograph dated 04/21/2024, 5:17 a.m. ACCESSION NUMBER(S): [id number] ORDERING CLINICIAN: JARED GASPAR FINDINGS: Single-view of the abdomen. Enteric tube is in place with the tip projecting over the stomach. Vascular stent in the bilateral iliac arteries. Nonobstructive bowel gas pattern. Limited evaluation of pneumoperitoneum on supine imaging, however no gross evidence of free air is noted. Positive contrast is identified throughout the loops of bowel. Dense consolidation in the retrocardiac left lung base. Osseous structures demonstrate no acute bony changes. IMPRESSION: 1. Enteric tube as described above. 2. Bowel gas pattern is nonobstructive with positive contrast throughout the loops of bowel. 3. Left lung base consolidation. Signed by: Buzz Yeager 04/21/2024 12:02 PM Dictation workstation: [id number] [facility] XR ABDOMEN 1 VIEW Interpreted By: Buzz Desouza, STUDY: XR ABDOMEN 1 VIEW; 04/21/2024 5:28 am INDICATION: Signs/Symptoms:gastrograffin challenge. COMPARISON: Radiograph dated 04/20/2024 ACCESSION NUMBER(S): [id number] ORDERING CLINICIAN: JARED GASPAR FINDINGS: Two views of the abdomen and pelvis. Enteric tube is in place with the tip projecting over the stomach. Side hole is near the GE junction. Multiple prominent loops of throughout the abdomen and pelvis. Limited evaluation of pneumoperitoneum on supine imaging, however no gross evidence of free air is noted. Vascular stent projecting over the iliac arteries. Pleural effusion in lung bases. Osseous structures demonstrate no acute bony changes. IMPRESSION: 1. Prominent loops of bowel in the abdomen which can be due to ileus. Positive contrast is identified in the loops of bowel and ascending colon. 2. Enteric tube as described above. Consider advancement. Signed by: Buzz Yeager 04/21/2024 6:42 AM Dictation workstation: [id number] [facility] XR Abdomen Single viewon [facility] MMODAL [facility] MM[facility]AL [facility] Work Phone: [facility] Work Phone: Radiology Study observation (narrative) [facility] Work Phone: [facility] MM[facility]AL [facility] MM[facility]AL [facility] Work Phone: [facility] Work Phone: Radiology Study observation (narrative) [facility] Work Phone: [facility] MM[facility]AL [facility] MM[facility]AL [facility] Work Phone: [facility] Work Phone: [facility] MM[facility]AL [facility] MM[facility]AL [facility] Work Phone: CBC panel Auto (Bld)on 04-20 Erythrocyte distribution width (RBC) [Ratio] 14.8 % High 11.5-14.5 [facility] Comment on above: Performed By: #### 3 4531-2 #### SYDNI Espino ([id number]) [facility] ([facility]) [address] [place] [address] Hematocrit (Bld) [Volume fraction] 31.2 % Low 41.0-52.0 [facility] Comment on above: Performed By: #### 3 2-2 #### SYDNI Espino ([id number]) [facility] ([facility]) [address] [place] [address] Hemoglobin (Bld) [Mass/Vol] 10.2 g/dL Low 13.5-17.5 [facility] Comment on above: Performed By: #### 3 4532-2 #### SYDNI Espino ([id number]) [facility] ([facility]) [address] [place] [address] MCH (RBC) [Entitic mass] 29.4 pg Normal 26.0-34.0 [facility] Comment on above: Performed By: #### 3 453-2 #### SYDNI Espino ([id number]) [facility] ([facility]) [address] [place] [address] MCHC (RBC) [Mass/Vol] 32.7 g/dL Normal 32.0-36.0 [facility] Comment on above: Performed By: #### 3 453-2 #### SYDNI Espino ([id number]) [facility] ([facility]) [address] [place] [address] MCV (RBC) [Entitic vol] 90 fL Normal 80-100 [facility] Comment on above: Performed By: #### 3 4531-2 #### SYDNI Espino ([id number]) [facility] ([facility]) [address] [place] [address] Nucleated RBC/100 WBC (Bld) [Ratio] 0.0 /100 WBCs Normal 0.0-0.0 [facility] Comment on above: Performed By: #### 3 4531-2 #### SYDNI Espino ([id number]) [facility] ([facility]) [address] [place] [address] Platelets (Bld) [#/Vol] 320 x10*3/uL Normal 150-450 [facility] Comment on above: Performed By: #### 3 4531-2 #### SYDNI Espino ([id number]) [facility] ([facility]) [address] [place] [address] RBC (Bld) [#/Vol] 3.47 x10*6/uL Low 4.50-5.90 [facility] Comment on above: Performed By: #### 3 4531-2 #### SYDNI Espino ([id number]) [facility] ([facility]) [address] [place] [address] WBC (Bld) [#/Vol] 9.3 x10*3/uL Normal 4.4-11.3 [facility] Comment on above: Performed By: #### 3 4531-2 #### SYDNI Espino ([id number]) [facility] ([facility]) [address] [place] [address] Glucose Test strip manual (B ld) [Mass/Vol]on 04-20-2024 Glucose [Mass/Vol] 167 mg/dL High [address] [place] [address] Comment on above: Performed By: #### 2 341-6 ####SYDNI Espino ([id number])[facility] ([facility])[address] [place] [address] Glucose [Mass/Vol] 121 mg/dL High 74-[address] [place] [address] Comment on above: Performed By: #### 3 4532-2 #### SYDNI Espino ([id number]) [facility] ([facility]) [address] [place] [address] Glucose [Mass/Vol] 166 mg/dL High [address] [place] [address] Comment on above: Performed By: #### 3 4532-2 #### SYDNI Espino ([id number]) [facility] ([facility]) [address] [place] [address] Glucose [Mass/Vol] 125 mg/dL High [address] [place] [address] Comment on above: Performed By: #### 3 4532-2 #### SYDNI Espino ([id number]) [facility] ([facility]) [address] [place] [address] Glucose [Mass/Vol] 175 mg/dL High [address] [place] [address] Comment on above: Performed By: #### 3 4532-2 #### SYDNI Espino ([id number]) [facility] ([facility]) [address] [place] [address] Magnesiumon 04-20-2024 Magnesium [Mass/Vol] 1.87 mg/dL Normal 1.60-2.40 [facility] Comment on above: Performed By: #### 3 4532-2 #### SYDNI Espino ([id number]) [facility] ([facility]) [address] [place] [address] Renal function 2000 panelon 04-20-2024 Albumin BCP dye [Mass/Vol] 3.1 g/dL Low 3.4-5.0 [facility] Comment on above: Performed By: #### 3 4532-2 #### SYDNI Espino ([id number]) [facility] ([facility]) [address] [place] [address] Anion gap [Moles/Vol] 12 mmol/L Normal 10-20 [facility] Comment on above: Performed By: #### 3 4532-2 #### SYDNI Espino ([id number]) [facility] ([facility]) [address] [place] [address] Calcium [Mass/Vol] 8.5 mg/dL Low 8.6-10.6 [facility] Comment on above: Performed By: #### 3 4532-2 #### SYDNI Espino ([id number]) [facility] ([facility]) [address] [place] [address] Chloride [Moles/Vol] 104 mmol/L Normal 98-107 [facility] Comment on above: Performed By: #### 3 4532-2 #### SYDNI Espino ([id number]) [facility] ([facility]) [address] [place] [address] CO2 [Moles/Vol] 35 mmol/L High 21-32 [facility] Comment on above: Performed By: #### 3 4532-2 #### SYDNI Espino ([id number]) [facility] ([facility]) [address] [place] [address] Creatinine [Mass/Vol] 1.38 mg/dL High 0.50-1.30 [facility] Comment on above: Performed By: #### 3 4532-2 #### SYDNI Espino ([id number]) [facility] ([facility]) [address] [place] [address] Glomerular filtration rate/1.73 sq M.predicted 54 mL/min/1.73m*2 Low >60 [facility] Comment on above: Result Comment: Calc ulations of estimated GFR are performed using the 2020 CKD-EPI Study Refit equation without the race variable for the IDMS-Traceable creatinine methods. https://jasn.asnjournals.org/content//ASN.0084838 988 Performed By: #### 3 4532-2 #### SYDNI Espino ([id number]) [facility] ([facility]) [address] [place] [address] Glucose [Mass/Vol] 129 mg/dL High 74-99 [facility] Comment on above: Performed By: #### 3 4532-2 #### SYDNI Espino ([id number]) [facility] ([facility]) [address] [place] [address] Phosphate [Mass/Vol] 2.5 mg/dL Normal 2.5-4.9 [facility] Comment on above: Result Comment: The performance characteristics of phosphorus testing in heparinized plasma have been validated by the individual laboratory site where testing is performed. Testing on heparinized plasma is not approved by the FDA; however, such approval is not necessary. Performed By: #### 3 4532-2 #### SYDNI Espino ([id number]) [facility] ([facility]) [address] [place] [address] Potassium [Moles/Vol] 3.3 mmol/L Low 3.5-5.3 [facility] Comment on above: Performed By: #### 3 4532-2 #### SYDNI Espino ([id number]) [facility] ([facility]) [address] [place] [address] Sodium [Moles/Vol] 148 mmol/L High 136-145 [facility] Comment on above: Performed By: #### 3 4532-2 #### SYDNI Espino ([id number]) [facility] ([facility]) [address] [place] [address] Urea nitrogen [Mass/Vol] 23 mg/dL Normal 6-23 [facility] Comment on above: Performed By: #### 3 4532-2 #### SYDNI Espino ([id number]) [facility] ([facility]) [address] [place] [address] XR ABDOMEN 1 VIEWon 04-20-20 24 XR ABDOMEN 1 VIEW Interpreted By: Buzz Desouza, STUDY: XR ABDOMEN 1 VIEW; 04/20/2024 3:44 pm INDICATION: Signs/Symptoms:gastrograffin challenge, stricture. COMPARISON: Radiograph dated 04/19/2024 ACCESSION NUMBER(S): [id number] ORDERING CLINICIAN: JARED GASPAR FINDINGS: Two views of the abdomen and pelvis. Enteric tube is in place with the tip projecting over the stomach. Multiple prominent loops of throughout the abdomen and pelvis. Limited evaluation of pneumoperitoneum on supine imaging, however no gross evidence of free air is noted. Vascular stent projecting over the iliac arteries. Osseous structures demonstrate no acute bony changes. IMPRESSION: 1. Prominent loops of bowel in the abdomen which can be due to ileus. No definite positive contrast is identified. 2. Enteric tube as described above. Signed by: Buzz Yeager 04/21/2024 6:40 AM Dictation workstation: [id number] Normal [facility] Bilirubin.glucuronidated+Aleks irubin.albumin boundon 04-19-2024 Bilirubin.direct [Mass/Vol] 0.2 mg/dL Normal 0.0-0.3 [facility] Comment on above: Performed By: #### 1 968-7 #### SYDNI Espino ([id number]) [facility] ([facility]) [address] [place] [address] Blood type and Indirect anti body screen panel (Bld)on 04-19-2024 ABO group Nom (Bld) A Normal [facility] Comment on above: Performed By: #### 3 4532-2 #### SYDNI Espino ([id number]) [facility] ([facility]) [address] [place], [place] [address] Blood group antibody screen Ql Negative Normal [facility] Comment on above: Performed By: #### 3 4532-2 #### SYDNI Espino ([id number]) [facility] ([facility]) [address] [place] [address] D Ag Ql (Bld) Positive Normal [facility] Comment on above: Performed By: #### 3 4532-2 #### SYDNI Espino ([id number]) [facility] ([facility]) [address] [place] [address] CBC W Auto Differential pane l (Bld)on 04-19-2024 Basophils (Bld) [#/Vol] 0.04 x10*3/uL Normal 0.00-0.10 [facility] Comment on above: Performed By: #### 5 7021-8 #### SYDNI Espino ([id number]) [facility] ([facility]) [address] [place] [address] Basophils/100 WBC (Bld) 0.5 % Normal 0.0-2.0 [facility] Comment on above: Performed By: #### 5 7021-8 #### SYDNI Espino ([id number]) [facility] ([facility]) [address] [place] [address] Eosinophils (Bld) [#/Vol] 0.04 x10*3/uL Normal 0.00-0.40 [facility] Comment on above: Performed By: #### 5 7021-8 #### SYDNI Espino ([id number]) [facility] ([facility]) [address] [place] [address] Eosinophils/100 WBC (Bld) 0.5 % Normal 0.0-6.0 [facility] Comment on above: Performed By: #### 5 7021-8 #### SYDNI Espino ([id number]) [facility] ([facility]) [address] [place] [address] Erythrocyte distribution width (RBC) [Ratio] 15.0 % High 11.5-14.5 [facility] Comment on above: Performed By: #### 5 7021-8 #### SYDNI Espino ([id number]) [facility] ([facility]) [address] [place] [address] Hematocrit (Bld) [Volume fraction] 33.6 % Low 41.0-52.0 [facility] Comment on above: Performed By: #### 5 7021-8 #### SYDNI Espino ([id number]) [facility] ([facility]) [address] [place] [address] Hemoglobin (Bld) [Mass/Vol] 10.3 g/dL Low 13.5-17.5 [facility] Comment on above: Performed By: #### 5 7021-8 #### SYDNI Espino ([id number]) [facility] ([facility]) [address] [place] [address] Immature granulocytes (Bld) [#/Vol] 0.03 x10*3/uL Normal 0.00-0.50 [facility] Comment on above: Performed By: #### 5 7021-8 #### SYDNI Espino ([id number]) [facility] ([facility]) [address] [place] [address] Immature granulocytes/100 WBC (Bld) 0.4 % Normal 0.0-0.9 [facility] Comment on above: Result Comment: Jacquie ture Granulocyte Count (IG) includes promyelocytes, myelocytes and metamyelocytes but does not include bands. Percent differential counts (%) should be interpreted in the context of the absolute cell counts (cells/UL). Performed By: #### 5 7021-8 #### SYDNI Espino ([id number]) [facility] ([facility]) [address] [place] [address] Lymphocytes (Bld) [#/Vol] 0.76 x10*3/uL Low 0.80-3.00 [facility] Comment on above: Performed By: #### 5 7021-8 #### SYDNI Espino ([id number]) [facility] ([facility]) [address] [place] [address] Lymphocytes/100 WBC (Bld) 9.3 % Normal 13.0-44.0 [facility] Comment on above: Performed By: #### 5 7021-8 #### SYDNI Espino ([id number]) [facility] ([facility]) [address] [place] [address] MCH (RBC) [Entitic mass] 28.8 pg Normal 26.0-34.0 [facility] Comment on above: Performed By: #### 5 7021-8 #### SYDNI Espino ([id number]) [facility] ([facility]) [address] [place] [address] MCHC (RBC) [Mass/Vol] 30.7 g/dL Low 32.0-36.0 [facility] Comment on above: Performed By: #### 5 7021-8 #### SYDNI Espino ([id number]) [facility] ([facility]) [address] [place] [id number] MCV (RBC) [Entitic vol] 94 fL Normal 80-100 [facility] Comment on above: Performed By: #### 5 7021-8 #### SYDNI Espino ([id number]) [facility] ([facility]) [address] [place] [address] 51772 Monocytes (Bld) [#/Vol] 0.49 x10*3/uL Normal 0.05-0.80 [facility] Comment on above: Performed By: #### 5 7021-8 #### SYDNI Espino ([id number]) [facility] ([facility]) [address] [place] [address] 68513 Monocytes/100 WBC (Bld) 6.0 % Normal 2.0-10.0 [facility] Comment on above: Performed By: #### 5 7021-8 #### SYDNI QUINN L ([id number]) [facility] ([facility]) [address] [place] [address] 86996 Neutrophils (Bld) [#/Vol] 6.85 x10*3/uL High 1.60-5.50 [facility] Comment on above: Result Comment: Perc ent differential counts (%) should be interpreted in the context of the absolute cell counts (cells/uL). Performed By: #### 5 7021-8 #### SYDNI Espino ([id number]) [facility] ([facility]) [address] [place] [address] Neutrophils/100 WBC (Bld) 83.3 % Normal 40.0-80.0 [facility] Comment on above: Performed By: #### 5 7021-8 #### SYDNI QUINN L ([id number]) [facility] ([facility]) [address] [place] [address] 93918 Nucleated RBC/100 WBC (Bld) [Ratio] 0.0 /100 WBCs Normal 0.0-0.0 [facility] Comment on above: Performed By: #### 5 7021-8 #### SYDNI QUINN L ([id number]) [facility] ([facility]) [address] [place] [address] 80438 Platelets (Bld) [#/Vol] 321 x10*3/uL Normal 150-450 [facility] Comment on above: Performed By: #### 5 7021-8 #### SYDNI Espino ([id number]) [facility] ([facility]) [address] [place] [address] 63143 RBC (Bld) [#/Vol] 3.58 x10*6/uL Low 4.50-5.90 [facility] Comment on above: Performed By: #### 5 7021-8 #### SYDNI QUINN L ([id number]) [facility] ([facility]) [address] [place] [address] 43961 WBC (Bld) [#/Vol] 8.2 x10*3/uL Normal 4.4-11.3 [facility] Comment on above: Performed By: #### 5 7021-8 #### SYDNI GARZAMOTZWILFREDO L ([id number]) [facility] ([facility]) [address] [place] [address] INTERPRETATION OF OUTSIDE FILMSon 04-19-2024 CT INTERPRETATION OF OUTSIDE FILMS Interpreted By: Nabeel Logan and Alejandro Richard STUDY: CT INTERPRETATION OF OUTSIDE FILMS; 04/19/2024 6:31 pm INDICATION: Signs/Symptoms:Interpretatio n of outside films. COMPARISON: CT chest abdomen pelvis 04/16/2024 ACCESSION NUMBER(S): [id number] ORDERING CLINICIAN: JARED GASPAR TECHNIQUE: Outside hospital CT abdomen and pelvis with intravenous contrast was reviewed. FINDINGS: CT abdomen and pelvis dated 04/17/2024, 5:29 p.m. was reviewed and there is significant increase in circumferential bowel wall thickening involving numerous ileal loops of bowel within the right lower quadrant with increased high attenuating ascites. Overall findings are concerning for developing bowel ischemia. In addition dilatation of bowel loops has also increased with findings suggestive of high-grade obstruction with a transition point along the anastomosis in the mid abdomen on image 77 series 2. Dedicated CTA of the abdomen and pelvis and correlation with lactate is recommended for assessment of arterial occlusion and/or bowel ischemia. IMPRESSION: Findings suspicious for developing bowel ischemia with high-grade obstruction. Recommend CTA of the abdomen and pelvis and correlation with lactate levels. I personally reviewed the image(s)/study and resident interpretation as stated by Dr. Hilary Allen MD. I agree with the findings as stated. This study was interpreted at [facility], [place], [place]. MACRO: None Signed by: Nabeel Logan 04/23/2024 11:58 AM Dictation workstation: [id number] Normal [facility] CT INTERPRETATION OF OUTSIDE FILMS Interpreted By: Nabeel Logan and Sheng Max ADDENDUM: Additional CT abdomen and pelvis dated 04/17/2024, 5:29 p.m. was reviewed and there is significant increase in circumferential bowel wall thickening involving numerous ileal loops of bowel within the right lower quadrant with increased high attenuating ascites. Overall findings are concerning for developing bowel ischemia. In addition dilatation of bowel loops has also increased with findings suggestive of high-grade obstruction with a transition point along the anastomosis in the mid abdomen on image 77 series 2. Short-term follow-up scan with correlation with lactate is recommended. Findings were discussed with Elroy Winston MD. Signed by: Nabeel Logan 04/19/2024 6:13 PM -------- ORIGINAL REPORT -------- Dictation workstation: [id number] Interpreted By: Nabeel Logan and Sheng Max STUDY: CT INTERPRETATION OF OUTSIDE FILMS; 04/19/2024 1:19 pm INDICATION: Signs/Symptoms:Interpretatio n of outside films. Per EMR: 74-year-old male history of bladder cancer, prostate cancer status post prostatectomy, colon cancer status post colectomy, AAA, cystectomy status post ileal conduit transferred from OSH for abdominal pain and emesis. OSH CT concern for SBO. COMPARISON: None. ACCESSION NUMBER(S): [id number] ORDERING CLINICIAN: JARED GASPAR TECHNIQUE: Axial CT images of the chest, abdomen and pelvis were obtained after the intravenous administration of contrast using with coronal and sagittal reformatted images. Interpretation of imaging obtained from outside hospital. FINDINGS: VASCULATURE: PULMONARY ARTERIES: The pulmonary trunk measures 3.1 cm which may be seen hypertension (series 2, image 61). No acute pulmonary embolism. THORACIC AORTA: Ectasia of the thoracic aorta measuring 3.6 cm no thoracic aortic aneurysm or dissection. Significant atherosclerosis with plaque formation throughout the ascending and descending thoracic aorta. In addition there is contrast extension into the adjacent atherosclerotic plaque as seen on series 2, image 41. Anatomic variant of two-vessel aortic arch with the left common carotid artery arising from the brachiocephalic trunk. ABDOMINAL AORTA: There is fusiform abdominal aortic aneurysm measuring 3.8 x 3.4 cm (series 2, image 158). There is extensive atherosclerotic plaque formation throughout the abdominal aorta resulting in intraluminal stenosis with the narrowest diameter measuring 1.8 x 1.6 cm at the level L1-L2 (series 2, image 143). ABDOMINAL AND PELVIC ARTERIES: Celiac artery demonstrates demonstrates severe atherosclerotic changes resulting in moderate ostial stenosis at its origin (series 601 image 162). Superior mesenteric artery demonstrates demonstrates moderate atherosclerotic changes without significant stenosis Inferior mesenteric artery is not visualized be occluded. There is a single right renal artery with severe ostial stenosis at its origin (series 2, image 139). Right renal artery demonstrates no significant focal stenosis. There is a single renal vein which is patent. There is a single left renal artery with demonstrates severe atherosclerotic changes without significant stenosis. Left renal artery demonstrates no significant focal stenosis. There is a single renal vein which is patent. RIGHT LEG: Right common iliac artery is stented with the stent appearing patent Right external iliac artery is stented with the stent appearing patent. Right internal iliac artery demonstrates severe atherosclerotic changes without significant stenosis Right common femoral artery is stented with a stent appearing patent. Visualized proximal right profunda femoris artery is widely patent with no significant stenosis. Visualized proximal right superficial femoral artery appears occluded images distal to its origin (series 2, image 251). LEFT LEG: Left common iliac artery is stented with the stent appears patent. Left external iliac artery is stented with a stent appearing patent. Left internal iliac artery is occluded with minimal reconstitution of the anterior and posterior divisions distally (series 2, image 197). Left common femoral artery demonstrates severe atherosclerotic changes without significant stenosis Visualized proximal left profunda femoris artery is widely patent with no significant stenosis. Visualized proximal left superficial femoral artery demonstrates severe atherosclerotic changes without significant stenosis (series 2, image 274). CT CHEST: MEDIASTINUM AND LYMPH NODES: No enlarged intrathoracic or axillary lymph nodes by CT criteria. No pneumomediastinum. HEART: Normal size. No coronary artery calcifications. Small pericardial effusion (series 2, image 105). LUNG, PLEURA, LARGE AIRWAYS: No pulmonary masses. Large left high attenuating pleural effusion with fluid t (more content not included)... Normal [facility] Comment on above: Order Comment: Tash ba number: [id number] CT Abd/Pelv Comprehensive metabolic 2000 panelon 04-19-2024 Albumin BCP dye [Mass/Vol] 3.0 g/dL Low 3.4-5.0 [facility] Comment on above: Performed By: #### 2 4323-8 #### SYDNI Espino ([id number]) [facility] ([facility]) [address] [place] [address] 37072 ALP [Catalytic activity/Vol] 61 U/L Normal 33-136 [facility] Comment on above: Performed By: #### 2 4323-8 #### SYDNI Espino ([id number]) [facility] ([facility]) [address] [place] [address] ALT With P-5'-P [Catalytic activity/Vol] 8 U/L Low 10-52 [facility] Comment on above: Result Comment: Taylor ents treated with Sulfasalazine may generate falsely decreased results for ALT. Performed By: #### 2 4323-8 #### SYDNI Espino ([id number]) [facility] ([facility]) [address] [place] [address] Anion gap [Moles/Vol] 15 mmol/L Normal 10-20 [facility] Comment on above: Performed By: #### 2 4323-8 #### SYDNI Espino ([id number]) [facility] ([facility]) [address] [place] [address] AST With P-5'-P [Catalytic activity/Vol] 14 U/L Normal 9-39 [facility] Comment on above: Performed By: #### 2 4323-8 #### SYDNI Espino ([id number]) [facility] ([facility]) [address] [place] [address] 40304 Bilirubin [Mass/Vol] 0.5 mg/dL Normal 0.0-1.2 [facility] Comment on above: Performed By: #### 2 4323-8 #### SYDNI Espino ([id number]) [facility] ([facility]) [address] [place] [address] 62207 Calcium [Mass/Vol] 8.2 mg/dL Low 8.6-10.6 [facility] Comment on above: Performed By: #### 2 4323-8 #### SYDNI Espino ([id number]) [facility] ([facility]) [address] [place] [address] 27707 Chloride [Moles/Vol] 105 mmol/L Normal 98-107 [facility] Comment on above: Performed By: #### 2 4323-8 #### SYDNI Espino ([id number]) [facility] ([facility]) [address] [place] [address] 20753 CO2 [Moles/Vol] 28 mmol/L Normal 21-32 [facility] Comment on above: Performed By: #### 2 4323-8 #### SYDNI Espino ([id number]) [facility] ([facility]) [address] [place] [address] 64598 Creatinine [Mass/Vol] 1.40 mg/dL High 0.50-1.30 [facility] Comment on above: Performed By: #### 2 4323-8 #### SYDNI Espino ([id number]) [facility] ([facility]) [address] [place] [address] 56218 Glomerular filtration rate/1.73 sq M.predicted 53 mL/min/1.73m*2 Low >60 [facility] Comment on above: Result Comment: Calc ulations of estimated GFR are performed using the 2020 CKD-EPI Study Refit equation without the race variable for the IDMS-Traceable creatinine methods. https://jasn.asnjournals.org/content//ASN.6078228 988 Performed By: #### 2 432-8 #### SYDNI Espino ([id number]) [facility] ([facility]) [address] [place] [address] 73129 Glucose [Mass/Vol] 124 mg/dL High 74-99 [facility] Comment on above: Performed By: #### 2 432-8 #### SYDNI Espino ([id number]) [facility] ([facility]) [address] [place] [address] 06566 Potassium [Moles/Vol] 3.7 mmol/L Normal 3.5-5.3 [facility] Comment on above: Performed By: #### 2 432-8 #### SYDNI Espino ([id number]) [facility] ([facility]) [address] [place] [address] 02948 Protein [Mass/Vol] 5.5 g/dL Low 6.4-8.2 [facility] Comment on above: Performed By: #### 2 432-8 #### SYDNI QUINN L ([id number]) [facility] ([facility]) [address] [place] [address] 94101 Sodium [Moles/Vol] 144 mmol/L Normal 136-145 [facility] Comment on above: Performed By: #### 2 432-8 #### SYDNI Espino ([id number]) [facility] ([facility]) [address] [place] [address] Urea nitrogen [Mass/Vol] 26 mg/dL High 6-23 [facility] Comment on above: Performed By: #### 2 4323-8 #### SYDNI Espino ([id number]) [facility] ([facility]) [address] [place] [address] 99850 Lactateon 04-19-2024 Lactate [Moles/Vol] 0.6 mmol/L Normal 0.4-2.0 [facility] Comment on above: Order Comment: Venip uncture immediately after or during the administration of Metamizole may lead to falsely low results. Testing should be performed immediately prior to Metamizole dosing. Performed By: #### 2 524-7 #### SYDNI Espino ([id number]) [facility] ([facility]) [address] [place] [address] 55630 Magnesiumon 04-19-2024 Magnesium [Mass/Vol] 1.88 mg/dL Normal 1.60-2.40 [facility] Comment on above: Performed By: #### 1 9123-9 #### SYDNI Espino ([id number]) [facility] ([facility]) [address] [place] [address] 00707 PICC >5 YR BEDSIDE IMAGINGon 04-19-2024 PICC >5 YR BEDSIDE IMAGING These images are not reportable by radiology and will not be interpreted by Radiologists. Normal [facility] PT and aPTT panel Coag (PPP) on 04-19-2024 aPTT Coag (PPP) [Time] 28 s Normal 27-38 [facility] Comment on above: Order Comment: The A PTT is no longer used for monitoring Unfractionated Heparin Therapy. For monitoring Heparin Therapy, use the Heparin Assay. Performed By: #### 3 4529-8 #### SYDNI Espino ([id number]) [facility] ([facility]) [address] [place] [address] 36788 INR Coag (PPP) [Relative time] 1.0 Normal 0.9-1.1 [facility] Comment on above: Order Comment: The A PTT is no longer used for monitoring Unfractionated Heparin Therapy. For monitoring Heparin Therapy, use the Heparin Assay. Performed By: #### 3 4529-8 #### SYDNI Espino ([id number]) [facility] ([facility]) [address] [place] [address] 81608 PT Coag (PPP) [Time] 11.5 s Normal 9.8-12.8 [facility] Comment on above: Order Comment: The A PTT is no longer used for monitoring Unfractionated Heparin Therapy. For monitoring Heparin Therapy, use the Heparin Assay. Performed By: #### 3 4529-8 #### SYDNI Espino ([id number]) [facility] ([facility]) [address] [place] [address] Prealbuminon 04-19-2024 Prealbumin [Mass/Vol] 14.7 mg/dL Low 18.0-40.0 [facility] Comment on above: Performed By: #### 1 4338-8 #### SYDNI Espino ([id number]) [facility] ([facility]) [address] [place], [place] [address] Staphylococcus aureus.methic illin resistant isolateon 04-19-2024 MRSA isol Org specific cx Ql (Nose) Test: Staphylococcus Aureus/MRSA Colonization, Culture - PICC Only Specimen Source: Anterior Nares Specimen Type: Swab Specimen Date: 04/19/20241858 Result Date: 04/21/2024 1213 Result Status: Final result Abnormal: No Resulting Lab: [facility] [address] [place], [place] [id number] CULTURE No Staphylococcus aureus isolated Normal [facility] Comment on above: Performed By: #### 5 2969-3 ####SYDNI Espino ([id number])[facility] ([facility])[address] [place] [address] 18583 Triglycerideon 04-19-2024 Triglyceride [Mass/Vol] 112 mg/dL Normal 0-149 [facility] Comment on above: Result Comment: Age Desirable Borderline High High Very High 0 D-90 D 19 - 174 ---- ---- ---- 91 D- 9 Y 0 - 74 75 - 99 >/= 100 ---- 10-19 Y 0 - 89 90 - 129 >/= 130 ---- 20-24 Y 0 - 114 115 - 149 >/= 150 ---- >24 Y 0 - 149 150 - 199 200- 499 >/= 500 Venipuncture immediately after or during the administration of Metamizole may lead to falsely low results. Testing should be performed immediately prior to Metamizole dosing. Performed By: #### 2 571-8 #### SYDNI Espino ([id number]) [facility] ([facility]) [address] [place] [address] XR ABDOMEN 1 VIEWon 04-19-20 XR ABDOMEN 1 VIEW Interpreted By: Myrtle Harvey and Jiang Sirui STUDY: XR ABDOMEN 1 VIEW; 04/19/2024 3:36 am INDICATION: Signs/Symptoms:Confirm NG tube placement. COMPARISON: None. ACCESSION NUMBER(S): [id number] ORDERING CLINICIAN: JARED GASPAR FINDINGS: Enteric tube in place coursing below the diaphragm and the distal tip is overlying the expected location of the gastric body. Dilated loops of small bowel within the upper abdomen measuring up with the four-point 1 cm. Limited evaluation of pneumoperitoneum on supine imaging, however no gross evidence of free air is noted. Small left pleural effusion. Osseous structures demonstrate no acute bony changes. IMPRESSION: 1. Enteric tube with distal tip overlying the expected location of the gastric body. 2. Upper abdomen demonstrates dilated loops of small bowel. 3. Small left pleural effusion I personally reviewed the image(s) / study and I agree with the findings as stated by Carrington Aaron MD. This study was interpreted at [facility], [place], [place]. MACRO: None Signed by: Myrtle Jaramillo 04/19/2024 8:31 AM Dictation workstation: [id number] [facility] XR ABDOMEN 2 VIEWS WITH CHES T 1 VIEWon 04-19-2024 XR ABDOMEN 2 VIEWS WITH CHEST 1 VIEW Interpreted By: Myrtle Jaramillo, STUDY: XR ABDOMEN 2 VIEWS WITH CHEST 1 VIEW; 04/19/2024 4:41 pm INDICATION: Signs/Symptoms:acute abdominal series. COMPARISON: Chest radiograph dated 01/10/2024. ACCESSION NUMBER(S): [id number] ORDERING CLINICIAN: JARED GASPAR FINDINGS: AP radiograph of the chest was provided. Interval placement of an endotracheal tube, with the distal tip projecting about 3.0 cm above the agnes. Stable postsurgical changes of median sternotomy. Sternotomy wires/plates intact and surgical clips overlying the mediastinum. Interval placement of a right-sided IJ approach central venous catheter, with the distal tip projecting over the expected region of the mid-svc. Interval placement of a Y-shaped chest tube injury terminating within the right hemithorax and mediastinum. Interval placement of an enteric tube projecting over the midline, with the distal tip outside the field of view of this study. Similar placement of left atrial appendage closure device. CARDIOMEDIASTINAL SILHOUETTE: Cardiomediastinal silhouette is enlarged, however stable in size and configuration. Aortic knob calcifications are noted. LUNGS: Mild central pulmonary vascular congestion with associated interstitial prominence and perihilar airspace opacities. No pneumothorax. ABDOMEN: No remarkable upper abdominal findings. BONES: No acute osseous changes. IMPRESSION: 1. Mild central pulmonary vascular congestion with associated interstitial edema and perihilar alveolar edema. 2. Postsurgical changes and medical devices, as above. 3. Stable enlargement of the cardiomediastinal silhouette. MACRO: None Signed by: Myrtle Jaramillo 04/19/2024 4:49 PM Dictation workstation: [id number] [facility] Views for blood flow and kidney function W diuretic Bibiana 04-05-2024 IMPRESSION: Right kidney: No significant cortical transit or function appreciated from the right. Left kidney contributes to almost the entire renal function. Split function: Left kidney 99% and right kidney 1% Supervisor Dry Cleaning: PSCB Transcribe Date/Time: Apr 05 2024 11:41A Dictated by : ROBERT JEFFERS MD This examination was interpreted and the report reviewed and electronically signed by: ROBERT JEFFERS MD on Apr 05 2024 11:53AM [facility] DIVISION OF RADIOLOGY * * *Final Report* * * DATE OF EXAM: Apr 05 2024 10:40AM HILARIO 0035 [facility] RENAL FLOW/FXN W PHARM / PROCEDURE REASON: Hydronephrosis of right kidney * * * * Physician Interpretation * * * * DIURETIC RENAL SCAN: CLINICAL HISTORY: Hydronephrosis TECHNIQUE: 12 mCi Tc 99m MAG3 IV. Medications and allergies reviewed. 40 Mg Lasix was given IV . Imaging of the kidneys for flow and function obtained in posterior views. RESULT: RENAL PERFUSION: There is prompt perfusion to the left kidney. There is poor perfusion to the right kidney. RENAL FUNCTION: There is satisfactory uptake and normal rate of parenchymal transit by the left kidney. There is spontaneous drainage of activity by the left kidney into a right lower quadrant urinary conduit. Following Lasix there is further clearance. No significant cortical transit or drainage is appreciated from the right. By computer analysis, the contribution to total renal function is 99% from the left kidney, and 1% from the right kidney (mainly background on the right). DIVISION OF RADIOLOGY Provider, [facility] - 04/05/2024 * * *Final Report* * * DATE OF EXAM: Apr 05 2024 10:40AM [facility] 0035 - [place] RENAL FLOW/FXN W PHARM / PROCEDURE REASON: Hydronephrosis of right kidney * * * * Physician Interpretation * * * * DIURETIC RENAL SCAN: CLINICAL HISTORY: Hydronephrosis TECHNIQUE: 12 mCi Tc 99m MAG3 IV. Medications and allergies reviewed. 40 Mg Lasix was given IV . Imaging of the kidneys for flow and function obtained in posterior views. RESULT: RENAL PERFUSION: There is prompt perfusion to the left kidney. There is poor perfusion to the right kidney. RENAL FUNCTION: There is satisfactory uptake and normal rate of parenchymal transit by the left kidney. There is spontaneous drainage of activity by the left kidney into a right lower quadrant urinary conduit. Following Lasix there is further clearance. No significant cortical transit or drainage is appreciated from the right. By computer analysis, the contribution to total renal function is 99% from the left kidney, and 1% from the right kidney (mainly background on the right). IMPRESSION IMPRESSION: Right kidney: No significant cortical transit or function appreciated from the right. Left kidney contributes to almost the entire renal function. Split function: Left kidney 99% and right kidney 1% Supervisor Dry Cleaning: JESSICA Transcribe Date/Time: Apr 05 2024 11:41A Dictated by : ROBERT JEFFERS MD This examination was interpreted and the report reviewed and electronically signed by: ROBERT JEFFERS MD on Apr 05 2024 11:53AM EST [facility] Radiology Study observation (narrative) [facility] NM Views for blood flow and kidney function W diuretic IVOrdered By: [facility] Provider on 04-05-2024 [facility] CNOVon 03-20-2024 CNOV Office Visit ([facility] ) LELA GUERRIER ([id number]) 1950 M Date Time Provider Department 03/20/24 3:30 PM ADRIÁN YARBROUGH [facility] During your visit today, we recorded the following information about you: Adrián Yarbrough MD 03/20/2024 4:01 PM Signed [facility] ESTABLISHED PATIENT NOTE PATIENT: Lela Quintero Guerrier (73 year old) PCP: Arnie Chiang MD DATE OF SERVICE: 03/20/2024 ASSESSMENT: 1. Hydronephrosis of right kidney - ICD9: 591, ICD10: N13.30 (primary diagnosis) 2. History of total cystectomy - ICD9: V45.74, ICD10: Z90.6 3. History of bladder cancer - ICD9: V10.51, ICD10: Z85.51 Robot assisted laparoscopic cysto-prostatectomy, bilateral pelvic lymph node dissection, and ileal conduit (intracorporeal), Extensive lysis of adhesions (~2hrs) - Dr. Muse 08/2016 New right hydroureteronephrosis. Severe right renal atrophy PLAN: Right hydronephrosis. Asymptomatic. No infections. Discussed scan results with patient. I suspect a non-functional kidney. Check renal scan to verify. If no function and remains asymptomatic, plan surveillance ORDERS TODAY: Orders Placed This Encounter NM RENAL FLOW/FXN W PHARM Standing Status: Future Standing Expiration Date: 04/19/2025 FOLLOW UP: No follow-ups on file. CHIEF COMPLAINT: Patient presents with: Hydronephrosis, unspecified hydronephrosis type: HISTORY OF PRESENT ILLNESS: Prior notes were reviewed. Mr. Guerrier is a 73 year old male who is here for follow up. The patient reports he feels well. No pain. No hematuria. REVIEW OF SYSTEMS: Genitourinary: No hematuria Constitutional: unintentional weight loss - denies, fevers - denies Cardiovascular: new or worsening chest pain - denies Respiratory: new or worsening shortness of breath - denies Gastrointestinal: constipation - denies, vomiting - denies Hematologic/Lymphatic: easy bleeding or bruising - denies ALLERGIES: ALLERGIES Allergen Reactions Bactrim [Sulfametho* Other: See Comments pt. states caused severe bladder spasms MEDICATIONS: albuterol HFA (VENTOLIN HFA) 90 mcg/actuation inhaler Inhale 2 Puffs as instructed every 4 hours as needed for wheezing/shortness of breath. acetaminophen-codeine (TYLENOL-COD #4) 300-60 mg per tablet [...] times a day as needed for pain. gabapentin (NEURONTIN) 300 mg capsule Take 2 capsules by mouth three times daily for 360 days. ondansetron (ZOFRAN) 8 mg tablet Take 1 tablet by mouth every 8 hours as needed for nausea/vomiting. clopidogrel (PLAVIX) 75 mg tablet Take 1 tablet by mouth once daily. Post stents. lisinopril (ZESTRIL) 20 mg tablet Take 1 tablet by mouth once daily. (Patient not taking: Reported on 03/20/2024) diphenhydrAMINE-Acetaminophe n 25-500 mg tab Take 2 tablets by mouth at bedtime as needed. (Patient not taking: Reported on 03/20/2024) PAST HISTORY: PAST MEDICAL HISTORY Diagnosis Date AAA (abdominal aortic aneurysm) (HCC) 05/06/2013 Bladder cancer (HCC) 08/29/2016 Bladder tumor BPH without urinary obstruction 08/04/2015 Cervicalgia 11/03/2008 CHRONIC AIRWAY OBSTRUCTION NEC 01/12/2009 Colon cancer (HCC) 07/19/2013 s/p laparoscopic with conversion to open low anterior resection of the colon with abscess and appendectomy and completed chemo 2013 Hydronephrosis 2023 HYPERTENSION NOS 12/01/2008 Hypertrophy of prostate without [...] iliac, external iliac angioplasty COLECTOMY PRTL W/COLOPROCTOSTOMY (more content not included)... Normal [facility] CNOVon 01-12-2024 CNOV Office Visit (URCANT ) LELA GUERRIER ([id number]) 1950 M Date Time Provider Department 01/12/24 1:00 PM NEVILLE GRECO URCANT During your visit today, we recorded the following information about you: Respiration Weight Height 20/minute 59 kg 1.72 m Neville Greco MD 01/12/2024 1:43 PM Signed [facility] UROLOGY NEW PATIENT CLINIC NOTE UROL [facility] MOB PATIENT: Lela Guerrier (73 year old) PCP: Arnie Chiang MD REFERRING PROVIDER: Rowena Sarabia APRN.MAINSTREAMING FACILITATOR CHIEF COMPLAINT: Hydronephrosis HISTORY OF PRESENT ILLNESS: Lela Guerrier is a 73 year old male with a 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 Ean Muse. GUY with urology fellow Placido Velez September 20, 2016. Notes indicate that the patient had 1 of 2 stents removed but he recalls have both stents removed a the same time. Recent BMP revealed a reduction in renal function now with a GFR of 42. Initial decline in renal function appears to have started 6 months ago. Subsequently patient underwent renal/bladder ultrasound revealing moderate to severe right-sided hydronephrosis and multiple simple cysts in the left kidney. History of stable 3.3 cm infrarenal abdominal aortic aneurysm with recommendations to undergo follow-up aortic duplex ultrasound in 2 years. LABS: PSA (ng/mL) Date Value 08/04/2015 1.29 PSA Screening (ng/mL) Date Value 04/08/2019 <0.03 No results found for: ISOPSA Creatinine Date Value Ref Range Status 01/02/2024 1.71 (H) 0.73 - 1.22 mg/dL Final 10/20/2023 1.76 (H) 0.73 - 1.22 mg/dL Final 07/14/2023 1.58 (H) 0.73 - 1.22 mg/dL Final 07/04/2022 1.16 0.73 - 1.22 mg/dL Final OFFICE DATA: POST-VOID RESIDUAL BLADDER VOLUME: N/A cc URINE POC GLUCOSE UA (POCT) Negative 09/15/2015 BILIRUBIN UA (POCT) Negative 09/15/2015 KETONE UA (POCT) Negative 09/15/2015 SPECIFIC GRAVITY UA (POCT) 1.010 09/15/2015 HEMOGLOBIN/BLOOD UA (POCT) Large 09/15/2015 PH UA (POCT) 6.5 09/15/2015 PROTEIN UA (POCT) Negative 09/15/2015 UROBILINOGEN UA (POCT) 0.2 09/15/2015 NITRITE UA (POCT) Negative 09/15/2015 LEUKOCYTES UA (POCT) Trace 09/15/2015 COLOR UA (POCT) Yellow 09/15/2015 CLARITY UA (POCT) Clear 09/15/2015 IMAGING: IMPRESSION: Now present is moderate to severe right-sided hydronephrosis. Further evaluation is needed. Multiple left renal simple cysts. Supervisor Dry Cleaning: PSCB Transcribe Date/Time: Jan 10 2024 4:43P Dictated by : TERRY SCHMIDT MD This examination was interpreted and the report reviewed and electronically signed by: TERRY SCHMIDT MD on Jan 10 2024 4:45PM EST Results-Findings * * *Final Report* * * DATE OF EXAM: Jan 10 2024 1:30PM [facility] 1055 - US KIDNEY/BLADDER / PROCEDURE REASON: Renal insufficiency * * * * Physician Interpretation * * * * EXAMINATION: RENAL ULTRASOUND CLINICAL HISTORY: Renal insufficiency. Patient has had prior cystectomy with conduit August 2016 TECHNIQUE: Sonography of the kidneys and urinary bladder was performed. Images were obtained and stored in a permanent archive. MQ: UR_1 COMPARISON: CT of 03/21/2017 RESULT: Right Kidney: -Renal length: 12.3 cm -Parenchyma: Normal parenchymal echogenicity. Normal parenchymal thickness. -Collecting system: Severe hydronephrosis. Proximal ureter measures 1.0 cm in caliber. -Calculus: No echogenic, shadowing calculus. -Lesion: None. Left Kidney: -Renal length: 10.8 cm -Parenchyma: Normal parenchymal echogenicity. Normal parenchymal thickness. -Collecting system: No hydronephrosis. -Calculus: No echogenic, shadowing calculus. -Lesion: Multiple simple cysts seen within the inferior pole measuring 2.2 x 1.9 x 2.1 cm and 1.2 x 0.8 x 1.0 cm, and within the upper to midpole measuring 0.9 x 0.6 x 1.0 cm. Bladder: Prior cystectomy. REVIEW OF SYSTEMS: Reviewed and otherwise non-contributory. HISTORY: PAST MEDICAL HISTORY Diagnosis Date AAA (abdominal [...] 2013 PURE HYPERCHOLESTEROLEM 06/21/2005 Rheumatoid arthritis(714.0) 03/04/2010 (more content not included)... Normal [facility] US Kidney - bilateral and Ur inary bladder[facility]20[facility] complete panel (U )on 01-08-2024 Bacteria uL High Negative uL [facility] Bilirubin Ql (U) Negative Negative [facility] Clarity (Unsp spec) Turbid Abnormal Clear [facility] Color (U) Yellow Yellow [facility] Epithelial cells LM.HPF (Urine sed) [#/Area] Few [facility] Glucose Test strip (U) [Mass/Vol] Negative Negative [facility] Hemoglobin Ql (U) Negative Negative [facility] Hyaline casts (Urine sed) [#/Area] 4-10 /LPF Abnormal 0 /LPF [facility] Ketones Ql (U) Negative Negative [facility] Leukocyte esterase Test strip Ql (U) Negative Negative [facility] Nitrite Ql (U) Positive Abnormal Negative [facility] pH (U) 7.5 [pH] <8.5 [facility] Protein (U) [Mass/Vol] 1+ Abnormal Negative [facility] RBC LM.HPF (Urine sed) [#/Area] 0-2 /HPF 0-2 /HPF [facility] Specific gravity (U) [Rel density] 1.017 1.005 - 1.030 [facility] Triple phosphate crystals LM.HPF (Urine sed) [#/Area] Few Abnormal None Seen /HPF [facility] Urobilinogen Ql (U) 0.2 EU/dL 0.2-1.0 EU/dL [facility] WBC LM.HPF (Urine sed) [#/Area] /[HPF] Abnormal 0-5 /HPF [facility] Basic metabolic 2000 panelon 01-02-2024 Anion gap [Moles/Vol] 7 mmol/L Low 9 - 18 mmol/L [facility] Calcium [Mass/Vol] 9.0 mg/dL 8.5 - 10. 2 mg/dL [facility] Chloride [Moles/Vol] 102 mmol/L 97 - 10 5 mmol/L [facility] CO2 [Moles/Vol] 27 mmol/L 22 - 30 mmol/L [facility] Creatinine [Mass/Vol] 1.71 mg/dL High 0.73 - 1.22 mg/dL [facility] Estimated Glomerular Filtration Rate 42 mL/min/1.73m Low >=60 mL/min/1.7 3m [facility] Glucose [Mass/Vol] 109 mg/dL High 74 - 99 mg/dL [facility] Potassium [Moles/Vol] 5.2 mmol/L High 3.7 - 5.1 mmol/L [facility] Sodium [Moles/Vol] 136 mmol/L 136 - 144 mmol/L [facility] Urea nitrogen [Mass/Vol] 19 mg/dL 9 - 24 mg/dL [facility] Cholesterol in LDL Direct as say [Mass/Vol]on 01-02-2024 Cholesterol in LDL [Mass/Vol] 53 mg/dL <100 mg/dL [facility] Office Visit: colonoscopyon 06-15-2017 Alcoholism counseling (procedure) no Invalid Interpretation Code [facility] [employer] Work Phone: Documentation of current medications (procedure) Done Invalid Interpretation Code [facility] [employer] Work Phone: Fall risk assessment No Invalid Interpretation Code [facility] [employer] Work Phone: Protein mass conc Done [facility] [employer] Work Phone: Protein mass conc no [facility] [employer] Work Phone: Protein mass conc yes [facility] [employer] Work Phone: Smoking cessation education (procedure) yes Invalid Interpretation Code [facility] [employer] Work Phone: Tobacco smoking status NHIS Never Invalid Interpretation Code [facility] [employer] Work Phone: Tobacco smoking status NHIS Current every day smoker [facility] [employer] Work Phone: Tobacco use HS Current every day smoker Invali d Interpretation Code [facility] [employer] Work Phone: Clinical Lists Update: Prelo felt hanger 05-15-2017 Protein mass conc no [facility] [employer] Work Phone: Protein mass conc yes [facility] [employer] Work Phone: Tobacco smoking status NHIS Never [facility] [employer] Work Phone: Tobacco smoking status NHIS Current every day smoker [facility] [employer] Work Phone: Clinical Lists Update: Prelo felt hanger 07-11-2014 Colonoscopy (procedure) Colonoscopy (procedure) Invalid Interpretation Code [facility] [employer] Work Phone: Protein mass conc Colonoscopy (procedure) [facility] [employer] Work Phone: Vital Signs Date Time Vital Sign Value Performing Clinician Yoseph jacobs 04-29-2025 08:27-0400 Body height 170.2 cm Rowena Sarabia APRN.CNP Work Phone: [facility] 04-29-2025 08:27-0400 Body mass index (BMI) [Ratio] 18.16 kg/m2 Rowena No HYDRO STATION SUPERVISOR.MAINSTREAMING FACILITATOR Work Phone: [facility] 04-29-2025 08:27-0400 Body temperature 98.4 [degF] Rowena No HYDRO STATION SUPERVISOR.MAINSTREAMING FACILITATOR Work Phone: [facility] 04-29-2025 08:27-0400 Body weight 52.6 kg Rowena No HYDRO STATION SUPERVISOR.MAINSTREAMING FACILITATOR Work Phone: [facility] 04-29-2025 08:27-0400 Diastolic blood pressure 60 mm[Hg] Rowena No HYDRO STATION SUPERVISOR.MAINSTREAMING FACILITATOR Work Phone: [facility] 04-29-2025 08:27-0400 Heart rate 116 /min Rowena No HYDRO STATION SUPERVISOR.MAINSTREAMING FACILITATOR Work Phone: [facility] 04-29-2025 08:27-0400 Respiratory rate 14 /min Rowena No HYDRO STATION SUPERVISOR.MAINSTREAMING FACILITATOR Work Phone: [facility] 04-29-2025 08:27-0400 SaO2% (BldA) [Mass fraction] 96 % Rowena No HYDRO STATION SUPERVISOR.MAINSTREAMING FACILITATOR Work Phone: [facility] 04-29-2025 08:27-0400 Systolic blood pressure 116 mm[Hg] Rowena No HYDRO STATION SUPERVISOR.MAINSTREAMING FACILITATOR Work Phone: [facility] 04-27-2025 11:20-0400 Body mass index (BMI) [Ratio] 18.08 kg/m2 Chun Clutter PA-C Work Phone: [facility] 04-27-2025 11:20-0400 Body temperature 98.29 [degF] Chun Clutter PA-C Work Phone: [facility] 04-27-2025 11:20-0400 Body weight 53.5 kg Chun Clutter PA-C Work Phone: [facility] 04-27-2025 11:20-0400 Diastolic blood pressure 70 mm[Hg] Chun Clutter PA-C Work Phone: [facility] 04-27-2025 11:20-0400 Heart rate 112 /min Chun Clutter PA-C Work Phone: [facility] 04-27-2025 11:20-0400 Respiratory rate 18 /min Chun Clutter PA-C Work Phone: [facility] 04-27-2025 11:20-0400 SaO2% (BldA) [Mass fraction] 98 % Chun Clutter PA-C Work Phone: [facility] 04-27-2025 11:20-0400 Systolic blood pressure 120 mm[Hg] Chun Clutter PA-C Work Phone: [facility] 04-18-2025 07:58-0400 Body mass index (BMI) [Ratio] 18.46 kg/m2 Rowena No HYDRO STATION SUPERVISOR.MAINSTREAMING FACILITATOR Work Phone: [facility] 04-18-2025 07:58-0400 Body weight 54.6 kg Rowena No HYDRO STATION SUPERVISOR.MAINSTREAMING FACILITATOR Work Phone: [facility] 04-18-2025 07:58-0400 Diastolic blood pressure 62 mm[Hg] Rowena No HYDRO STATION SUPERVISOR.MAINSTREAMING FACILITATOR Work Phone: [facility] 04-18-2025 07:58-0400 Heart rate 66 /min Rowena No HYDRO STATION SUPERVISOR.MAINSTREAMING FACILITATOR Work Phone: [facility] 04-18-2025 07:58-0400 Respiratory rate 14 /min Rowena No HYDRO STATION SUPERVISOR.MAINSTREAMING FACILITATOR Work Phone: [facility] 04-18-2025 07:58-0400 SaO2% (BldA) [Mass fraction] 94 % Rowena No HYDRO STATION SUPERVISOR.MAINSTREAMING FACILITATOR Work Phone: [facility] 04-18-2025 07:58-0400 Systolic blood pressure 102 mm[Hg] Rowena No HYDRO STATION SUPERVISOR.MAINSTREAMING FACILITATOR Work Phone: [facility] 01-15-2025 08:09-0400 Body mass index (BMI) [Ratio] 18.76 kg/m2 Rowena Sarabia HYDRO STATION SUPERVISOR.MAINSTREAMING FACILITATOR Work Phone: [facility] 01-15-2025 08:09-0400 Body weight 55.5 kg Rowena Sarabia HYDRO STATION SUPERVISOR.MAINSTREAMING FACILITATOR Work Phone: [facility] 01-15-2025 08:09-0400 Diastolic blood pressure 78 mm[Hg] Rowena Sarabia HYDRO STATION SUPERVISOR.MAINSTREAMING FACILITATOR Work Phone: [facility] 01-15-2025 08:09-0400 Heart rate 78 /min Rowena Sarabia HYDRO STATION SUPERVISOR.MAINSTREAMING FACILITATOR Work Phone: [facility] 01-15-2025 08:09-0400 Respiratory rate 14 /min Rowena Sarabia HYDRO STATION SUPERVISOR.MAINSTREAMING FACILITATOR Work Phone: [facility] 01-15-2025 08:09-0400 SaO2% (BldA) [Mass fraction] 91 % Rowena Sarabia HYDRO STATION SUPERVISOR.MAINSTREAMING FACILITATOR Work Phone: [facility] 01-15-2025 08:09-0400 Systolic blood pressure 118 mm[Hg] Rowena Sarabia HYDRO STATION SUPERVISOR.MAINSTREAMING FACILITATOR Work Phone: [facility] 10-22-2024 08:20-0500 Body mass index (BMI) [Ratio] 19.03 kg/m2 Arnie Chiang MD Work Phone: [facility] 10-22-2024 08:20-0500 Body temperature 97.11 [degF] Arnie Chiang MD Work Phone: [facility] 10-22-2024 08:20-0500 Body weight 56.3 kg Arnie Chiang MD Work Phone: [facility] 10-22-2024 08:20-0500 Diastolic blood pressure 64 mm[Hg] Arnie Chiang MD Work Phone: [facility] 10-22-2024 08:20-0500 Heart rate 92 /min Arnie Chiang MD Work Phone: [facility] 10-22-2024 08:20-0500 Respiratory rate 20 /min Arnie Chiang MD Work Phone: [facility] 10-22-2024 08:20-0500 Systolic blood pressure 124 mm[Hg] Arnie Chiang MD Work Phone: [facility] 07-18-2024 07:56-0400 Body mass index (BMI) [Ratio] 18.56 kg/m2 Rowena No HYDRO STATION SUPERVISOR.MAINSTREAMING FACILITATOR Work Phone: [facility] 07-18-2024 07:56-0400 Body weight 54.9 kg Rowena No HYDRO STATION SUPERVISOR.MAINSTREAMING FACILITATOR Work Phone: [facility] 07-18-2024 07:56-0400 Diastolic blood pressure 70 mm[Hg] Rowena No HYDRO STATION SUPERVISOR.MAINSTREAMING FACILITATOR Work Phone: [facility] 07-18-2024 07:56-0400 Heart rate 108 /min Rowena SmithNo HYDRO STATION SUPERVISOR.MAINSTREAMING FACILITATOR Work Phone: [facility] 07-18-2024 07:56-0400 Respiratory rate 24 /min Rowena No HYDRO STATION SUPERVISOR.MAINSTREAMING FACILITATOR Work Phone: [facility] 07-18-2024 07:56-0400 SaO2% (BldA) [Mass fraction] 95 % Rowena No HYDRO STATION SUPERVISOR.MAINSTREAMING FACILITATOR Work Phone: [facility] 07-18-2024 07:56-0400 Systolic blood pressure 123 mm[Hg] Rowena No HYDRO STATION SUPERVISOR.MAINSTREAMING FACILITATOR Work Phone: [facility] 05-24-2024 09:21-0400 Body mass index (BMI) [Ratio] 18.42 kg/m2 Rowena No HYDRO STATION SUPERVISOR.MAINSTREAMING FACILITATOR Work Phone: [facility] 05-24-2024 09:21-0400 Body weight 54.5 kg Rowena No HYDRO STATION SUPERVISOR.MAINSTREAMING FACILITATOR Work Phone: [facility] 05-24-2024 09:21-0400 Diastolic blood pressure 76 mm[Hg] Rowena No HYDRO STATION SUPERVISOR.MAINSTREAMING FACILITATOR Work Phone: [facility] 05-24-2024 09:21-0400 Heart rate 74 /min Rowena No HYDRO STATION SUPERVISOR.MAINSTREAMING FACILITATOR Work Phone: [facility] 05-24-2024 09:21-0400 Respiratory rate 20 /min Rowena No HYDRO STATION SUPERVISOR.MAINSTREAMING FACILITATOR Work Phone: [facility] 05-24-2024 09:21-0400 SaO2% (BldA) [Mass fraction] 88 % Rowena No HYDRO STATION SUPERVISOR.MAINSTREAMING FACILITATOR Work Phone: [facility] 05-24-2024 09:21-0400 Systolic blood pressure 124 mm[Hg] Rowena No HYDRO STATION SUPERVISOR.MAINSTREAMING FACILITATOR Work Phone: [facility] 05-10-2024 13:11-0400 Body temperature 98.1 [degF] Jared Gaspar MD Work Phone: [facility] 05-10-2024 13:11-0400 Diastolic blood pressure 70 mm[Hg] Jared Gaspar MD Work Phone: [facility] 05-10-2024 13:11-0400 Heart rate 82 /min Jared Gaspar MD Work Phone: [facility] 05-10-2024 13:11-0400 Respiratory rate 18 /min Jared Gaspar MD Work Phone: [facility] 05-10-2024 13:11-0400 SaO2% (BldA) [Mass fraction] 95 % Jared Gaspar MD Work Phone: [facility] 05-10-2024 13:11-0400 Systolic blood pressure 159 mm[Hg] Jared Gaspar MD Work Phone: [facility] 05-10-2024 06:15-0400 Body mass index (BMI) [Ratio] 22.44 kg/m2 Jared Gaspar MD Work Phone: [facility] 05-10-2024 06:15-0400 Body weight 65 kg Jared Gaspar MD Work Phone: [facility] 04-30-2024 16:33-0400 Body temperature 37.0 Jared Gaspar MD Work Phone: [facility] 04-30-2024 16:33-0400 SaO2% (BldA) [Mass fraction] 100 % Jared Gaspar MD Work Phone: 8(172)163-944229 [place] [address] 04-30-2024 11:25-0400 Body temperature 37.0 Jared Gaspar MD Work Phone: [facility] 04-30-2024 11:25-0400 SaO2% (BldA) [Mass fraction] 93 % Jared Gaspar MD Work Phone: [facility] 04-30-2024 11:10-0400 Body temperature 37.0 degrees Celsius [facility] Comment on above: Performed By: #### [id number] #### SYDNI Espino ([id number]) [facility] ([facility]) [address] [id number] 04-30-2024 11:10-0400 SaO2% (BldA) [Mass fraction] 93 % [facility] Comment on above: Performed By: #### [id number] #### SYDNI Espino ([id number]) [facility] ([facility]) [address] [id number] 04-30-2024 08:35-0400 Body temperature 37.0 degrees Celsius [facility] Comment on above: Performed By: #### [id number] #### SYDNI Espino ([id number]) [facility] ([facility]) [address] [id number] 04-30-2024 08:35-0400 SaO2% (BldA) [Mass fraction] 100 % JARED GASPAR [facility] Comment on above: Performed By: #### [id number] #### SYDNI Espino ([id number]) [facility] ([facility]) [address] [place] [address] 04-19-2024 02:35-0400 Body height 170.2 cm Jared Gaspar MD Work Phone: [facility] 01-12-2024 12:33-0400 Body height 172 cm Neville Greco MD Work Phone: [facility] 01-12-2024 12:33-0400 Body weight 58.97 kg Neville Greco MD Work Phone: [facility] 01-12-2024 12:33-0400 Respiratory rate 20 /min Neville Greco MD Work Phone: [facility] 01-08-2024 08:02-0400 Body weight 58.51 kg Rowena No HYDRO STATION SUPERVISOR.MAINSTREAMING FACILITATOR Work Phone: [facility] 01-08-2024 08:02-0400 Diastolic blood pressure 68 mm[Hg] Rowena No HYDRO STATION SUPERVISOR.MAINSTREAMING FACILITATOR Work Phone: [facility] 01-08-2024 08:02-0400 Heart rate 106 /min Rowena No HYDRO STATION SUPERVISOR.MAINSTREAMING FACILITATOR Work Phone: [facility] 01-08-2024 08:02-0400 Respiratory rate 20 /min Rowena No HYDRO STATION SUPERVISOR.MAINSTREAMING FACILITATOR Work Phone: [facility] 01-08-2024 08:02-0400 SaO2% (BldA) [Mass fraction] 97 % Rowena No HYDRO STATION SUPERVISOR.MAINSTREAMING FACILITATOR Work Phone: [facility] 01-08-2024 08:02-0400 Systolic blood pressure 123 mm[Hg] Rowena No HYDRO STATION SUPERVISOR.MAINSTREAMING FACILITATOR Work Phone: [facility] 12-29-2023 08:40-0500 Body temperature 97.3 [degF] Dr. Arnie Chiang Work Phone: [facility] 12-29-2023 08:40-0500 Diastolic blood pressure 65 mm[Hg] Dr. Arnie Chiang Work Phone: 8(317)462-259041 [place] [address] 12-29-2023 08:40-0500 Heart rate 60 /min Dr. Arnie Chiang Work Phone: 3(935)450-996008 [place] [address] 12-29-2023 08:40-0500 Respiratory rate 16 /min Dr. Arnie Chiang Work Phone: 8(520)412-317241 [place] [address] 12-29-2023 08:40-0500 SaO2% (BldA) [Mass fraction] 100 % Dr. Arnie Chiang Work Phone: 6(059)225-808841 [place] [address] 12-29-2023 08:40-0500 Systolic blood pressure 114 mm[Hg] Dr. Arnie Chiang Work Phone: 6(583)091-931141 [place] [address] 12-29-2023 07:19-0500 Body height 170.[address] Arnie Chiang Work Phone: 6(442)075-875741 [place] [address] 12-29-2023 07:19-0500 Body mass index (BMI) [Ratio] 19.5 kg/m2 Dr. Arnie Chiang Work Phone: 6(558)319-905808 [place] [address] 12-29-2023 07:19-0500 Body weight 56.[address] Arnie Chiang Work Phone: 7(175)770-444641 [place] [address] 12-13-2023 09:23-0500 Body mass index (BMI) [Ratio] 19.5 kg/m2 Dr. Arnie Chiang Work Phone: 9(284)407-284041 [place] [address] 12-13-2023 09:23-0500 Body weight 59.[address] Arnie Chiang Work Phone: 2(721)441-614841 [place] [address] 12-13-2023 09:23-0500 Diastolic blood pressure 69 mm[Hg] Dr. Arnie Chiang Work Phone: [facility] 12-13-2023 09:23-0500 Respiratory rate 16 /min Dr. Arnie Chiang Work Phone: [facility] [facility] 12-13-2023 09:23-0500 Systolic blood pressure 132 mm[Hg] Dr. Arnie Chiang Work Phone: [facility] 07-12-2023 08:50-0400 Body temperature 98.4 [degF] Rowena Older HYDRO STATION SUPERVISOR.MAINSTREAMING FACILITATOR Work Phone: [facility] 07-12-2023 08:50-0400 Body weight 59.42 kg Rowena Older HYDRO STATION SUPERVISOR.MAINSTREAMING FACILITATOR Work Phone: [facility] 07-12-2023 08:50-0400 Diastolic blood pressure 72 mm[Hg] Rowena Older HYDRO STATION SUPERVISOR.MAINSTREAMING FACILITATOR Work Phone: [facility] 07-12-2023 08:50-0400 Heart rate 76 /min Rowena Older HYDRO STATION SUPERVISOR.MAINSTREAMING FACILITATOR Work Phone: [facility] 07-12-2023 08:50-0400 Respiratory rate 20 /min Rowena Older HYDRO STATION SUPERVISOR.MAINSTREAMING FACILITATOR Work Phone: [facility] 07-12-2023 08:50-0400 SaO2% (BldA) [Mass fraction] 94 % Rowena Older HYDRO STATION SUPERVISOR.MAINSTREAMING FACILITATOR Work Phone: [facility] 07-12-2023 08:50-0400 Systolic blood pressure 132 mm[Hg] Rowena Older HYDRO STATION SUPERVISOR.MAINSTREAMING FACILITATOR Work Phone: [facility] 01-17-2023 07:53-0400 Body weight 58.06 kg Rowena Older HYDRO STATION SUPERVISOR.MAINSTREAMING FACILITATOR Work Phone: [facility] 01-17-2023 07:53-0400 Diastolic blood pressure 58 mm[Hg] Rowena Older HYDRO STATION SUPERVISOR.MAINSTREAMING FACILITATOR Work Phone: [facility] 01-17-2023 07:53-0400 Heart rate 100 /min Rowena Older HYDRO STATION SUPERVISOR.MAINSTREAMING FACILITATOR Work Phone: [facility] 01-17-2023 07:53-0400 Respiratory rate 14 /min Rowena Older HYDRO STATION SUPERVISOR.MAINSTREAMING FACILITATOR Work Phone: [facility] 01-17-2023 07:53-0400 Systolic blood pressure 116 mm[Hg] Rowena Older HYDRO STATION SUPERVISOR.MAINSTREAMING FACILITATOR Work Phone: [facility] 10-10-2022 08:56-0500 Body height 171.5 cm Rowena Older HYDRO STATION SUPERVISOR.MAINSTREAMING FACILITATOR Work Phone: [facility] 10-10-2022 08:56-0500 Body weight 59.88 kg Rowena Older HYDRO STATION SUPERVISOR.MAINSTREAMING FACILITATOR Work Phone: [facility] 10-10-2022 08:56-0500 Diastolic blood pressure 67 mm[Hg] Rowena Older HYDRO STATION SUPERVISOR.MAINSTREAMING FACILITATOR Work Phone: [facility] 10-10-2022 08:56-0500 Heart rate 103 /min Rowena Older HYDRO STATION SUPERVISOR.MAINSTREAMING FACILITATOR Work Phone: [facility] 10-10-2022 08:56-0500 Respiratory rate 18 /min Rowena Older HYDRO STATION SUPERVISOR.MAINSTREAMING FACILITATOR Work Phone: [facility] 10-10-2022 08:56-0500 Systolic blood pressure 113 mm[Hg] Rowena Older HYDRO STATION SUPERVISOR.MAINSTREAMING FACILITATOR Work Phone: [facility] 07-12-2022 09:36-0400 Body temperature 98.6 [degF] Rowena Older HYDRO STATION SUPERVISOR.MAINSTREAMING FACILITATOR Work Phone: [facility] 07-12-2022 09:36-0400 Body weight 60.78 kg Rowena Older HYDRO STATION SUPERVISOR.MAINSTREAMING FACILITATOR Work Phone: [facility] 07-12-2022 09:36-0400 Diastolic blood pressure 68 mm[Hg] Rowena Older HYDRO STATION SUPERVISOR.MAINSTREAMING FACILITATOR Work Phone: [facility] 07-12-2022 09:36-0400 Heart rate 92 /min Rowena Older HYDRO STATION SUPERVISOR.MAINSTREAMING FACILITATOR Work Phone: [facility] 07-12-2022 09:36-0400 Respiratory rate 12 /min Rowena Older HYDRO STATION SUPERVISOR.MAINSTREAMING FACILITATOR Work Phone: [facility] 07-12-2022 09:36-0400 Systolic blood pressure 116 mm[Hg] Rowena Older HYDRO STATION SUPERVISOR.MAINSTREAMING FACILITATOR Work Phone: [facility] 04-15-2022 09:30-0400 Diastolic blood pressure 68 mm[Hg] Rowena Older HYDRO STATION SUPERVISOR.MAINSTREAMING FACILITATOR Work Phone: [facility] 04-15-2022 09:30-0400 Systolic blood pressure 132 mm[Hg] Rowena Older HYDRO STATION SUPERVISOR.MAINSTREAMING FACILITATOR Work Phone: [facility] 04-15-2022 09:12-0400 Body weight 60.33 kg Rowena Older HYDRO STATION SUPERVISOR.MAINSTREAMING FACILITATOR Work Phone: [facility] 04-15-2022 09:12-0400 Heart rate 76 /min Rowena Older HYDRO STATION SUPERVISOR.MAINSTREAMING FACILITATOR Work Phone: [facility] 04-15-2022 09:12-0400 Respiratory rate 18 /min Rowena Older HYDRO STATION SUPERVISOR.MAINSTREAMING FACILITATOR Work Phone: [facility] 06-15-2017 08:48-0400 BMI (Body Mass Index) 21.44 kg/m2 [facility] Work Phone: 06-15-2017 08:48-0400 Body Temperature 98 [degF] [facility] Work Phone: 06-15-2017 08:48-0400 BP Diastolic 90 mm[Hg] [facility] Work Phone: 06-15-2017 08:48-0400 BP Systolic 165 mm[Hg] [facility] Work Phone: 06-15-2017 08:48-0400 Height 175.26 cm [facility] Work Phone: 06-15-2017 08:48-0400 Pulse (Heart Rate) 70 /[facility] Work Phone: 06-15-2017 08:48-0400 Respiratory Rate 18 /min [facility] Work Phone: 06-15-2017 08:48-0400 Weight 65.86 kg Jenna Lacy [facility] Work Phone: Encounters Encounter Date Encounter Type Care Provider Facility Start: 07-11-2025 ambulatory Arnie Davis ty:[facility] Start: 07-01-2025 End: 07-02-2025 Refill Rowena Sarabia HYDRO STATION SUPERVISOR.MAINSTREAMING FACILITATOR Work Phone: [facility] [place] Comment on above: Refill Request Start: 06-25-2025 Non-patient / Non-visit Dr. Geo granados MD -[facility] Start: 06-25-2025 End: 06-25-[address] Arnie Chiang MD Work Phone: -Cardiovascular Services Start: 06-25-2025 End: 06-25-2025 Patient encounter procedure Yi RODRIGUEZ -[facility] Work Phone: Start: 06-25-2025 End: 06-25-2025 ambulatory Yi Lockhart Facility:[facility] Start: 04-29-2025 End: 04-29-2025 Office outpatient visit 25 minutes Rowena Sarabia HYDRO STATION SUPERVISOR.MAINSTREAMING FACILITATOR Work Phone: [facility] [place] Comment on above: Other insomnia (Prim nabor Dx); Acute conjunctivitis of right eye, unspecified acute conjunctivitis type; Iron deficiency anemia, unspecified iron deficiency anemia type Start: 04-29-2025 End: 04-29-2025 ambulatory ROWENA SARABIA Facility:[facility] Start: 04-27-2025 End: 04-27-2025 Office outpatient new 30 minutes Chun Kirk PA-C Work Phone: [place] [facility] Comment on above: Other insomnia (Prim nabor Dx); Acute conjunctivitis of right eye, unspecified acute conjunctivitis type Start: 04-27-2025 End: 04-27-2025 ambulatory ARNIE CHIANG Facility:[facility] Start: 04-24-2025 End: 04-24-2025 ambulatory Arnie Chiang MD Work Phone: [facility] [place] Comment on above: Sleep Problem Start: 04-18-2025 End: 04-18-2025 Office outpatient visit 25 minutes Rowena Sarabia HYDRO STATION SUPERVISOR.MAINSTREAMING FACILITATOR Work Phone: [facility] [place] Comment on above: Cervicalgia (Primary Dx); Peripheral vascular disease, unspecified; Iron deficiency anemia, unspecified iron deficiency anemia type Start: 04-18-2025 End: 04-18-2025 ambulatory ROWENA SARABIA Facility:[facility] Start: 01-21-2025 End: 01-21-2025 Follow-up encounter Rowena Sarabia APRN.MAINSTREAMING FACILITATOR Work Phone: [facility] [place] Start: 01-15-2025 End: 01-15-2025 Telephone encounter Arnie Chiang MD Work Phone: [facility] [place] Comment on above: Pharmacy Call Start: 01-15-2025 End: 01-15-2025 ambulatory ROWENA SARABIA Facility:[facility] Start: 01-15-2025 End: 01-15-2025 Patient encounter procedure Rowena Sarabia APRN.MAINSTREAMING FACILITATOR Work Phone: [facility] [place] Comment on above: S/P ileal conduit (H CC) (Primary Dx); Cervicalgia; Essential hypertension; Pure hypercholesterolemia; Chronic bronchitis, unspecified chronic bronchitis type (HCC); Stage 3a chronic kidney disease (HCC); Polyneuropathy following chemotherapy (HCC); Anemia, unspecified type; Tobacco use disorder; Abdominal aortic aneurysm (AAA) without rupture, unspecified part (HCC); Peripheral arterial disease (HCC); Bilateral carotid artery stenosis Start: 12-19-2024 End: 12-19-2024 Follow-up encounter Arnie Chiang MD Work Phone: [facility] [place] Start: 12-13-2024 End: 12-13-2024 ambulatory ROWENA SARABIA Facility:[facility] Start: 12-13-2024 End: 12-13-2024 ambulatory Arnie Chiang Facility:[facility] Start: 11-28-2024 End: 12-09-2024 Telephone encounter Arnie Chiang MD Work Phone: [facility] [place] [facility] on [facility] Start: 10-28-2024 End: 10-28-2024 Telephone encounter Arnie Chiang MD Work Phone: [facility] [place] Comment on above: Results (Blood work) Start: 10-22-2024 End: 10-22-2024 ambulatory ROWENA SARABIA Facility:[facility] Start: 10-22-2024 End: 10-22-2024 Patient encounter procedure Arnie Chiang MD Work Phone: [facility] [place] Comment on above: Medicare annual well ness visit, subsequent (Primary Dx); Pure hypercholesterolemia; Cervicalgia; Essential hypertension; Chronic bronchitis, unspecified chronic bronchitis type (HCC); Encounter for medication monitoring; Screening for depression; Encounter for screening examination for other mental health and behavioral disorders; Decubitus ulcer of sacral region, stage 1; Anemia, unspecified type; S/P laparotomy with lysis of adhesions Start: 09-28-2024 End: 10-01-2024 Refill Rowena Sarabia HYDRO STATION SUPERVISOR.MAINSTREAMING FACILITATOR Work Phone: [facility] [place] Comment on above: Refill Request Start: 08-23-2024 End: 08-23-2024 ambulatory Arnie Chiang Facility:[facility] Start: 07-25-2024 End: 07-25-2024 Refill Arnie Chiang MD Work Phone: [facility] [place] Comment on above: Refill Request Start: 07-18-2024 End: 07-18-2024 Patient encounter procedure Rowena Sarabia HYDRO STATION SUPERVISOR.MAINSTREAMING FACILITATOR Work Phone: [facility] [place] Comment on above: Stage 3a chronic kid darwin disease (HCC) (Primary Dx); Peripheral vascular disease, unspecified (HCC); Peripheral polyneuropathy; Pure hypercholesterolemia; Cervicalgia; Essential hypertension; Anemia, unspecified type; Chronic bronchitis, unspecified chronic bronchitis type (HCC); Encounter for immunization Start: 07-18-2024 End: 07-18-2024 ambulatory ROWENA SARABIA Facility:[facility] Start: 07-15-2024 ambulatory [facility] Facility:[facility] Start: 07-15-2024 End: 07-15-2024 ambulatory [facility] Facility:[facility] Start: 06-22-2024 End: 06-25-2024 Refill Rowena Sarabia HYDRO STATION SUPERVISOR.MAINSTREAMING FACILITATOR Work Phone: Internal [facility] Comment on above: Refill Request Start: 05-24-2024 Telephone encounter Rowena juarez HYDRO STATION SUPERVISOR.MAINSTREAMING FACILITATOR Work Phone: Internal [facility] Start: 05-24-2024 End: 05-24-2024 Subsequent hospital visit by physician Xr [facility] Work Phone: Radiology Comment on above: Pleural effusion [J9 0] Start: 05-24-2024 End: 05-24-2024 ambulatory ROWENA SARABIA Facility:[facility] Start: 05-24-2024 End: 05-24-2024 Patient encounter procedure Rowena Sarabia HYDRO STATION SUPERVISOR.MAINSTREAMING FACILITATOR Work Phone: [facility] [place] Comment on above: Anemia, unspecified type (Primary Dx); MIRIAM (acute kidney injury) (HCC); Pleural effusion; S/P laparotomy with lysis of adhesions; Small bowel obstruction due to adhesions (HCC); Debility Start: 05-15-2024 Refill Arnie tellez MD Work Phone: [facility] [place] Comment on above: Refill Request Start: 04-19-2024 End: 05-10-2024 Evaluation and management of inpatient JARED [facility] Work Phone: Start: 04-05-2024 End: 04-05-2024 Subsequent hospital visit by physician [facility] Work Phone: Nuclear Medicine Comment on above: Hydronephrosis of ri ght kidney [N13.30] Start: 03-20-2024 End: 03-20-2024 ambulatory ADRIÁN YARBROUGH Facility:[id number] Start: 03-20-2024 End: 03-20-2024 Patient encounter procedure Adrián Yarbrough MD Work Phone: Urology Comment on above: Hydronephrosis of ri ght kidney (Primary Dx); History of total cystectomy; History of bladder cancer; Stage 3a chronic kidney disease (HCC) Start: 03-07-2024 Refill Arnie tellez MD Work Phone: [facility] [place] Comment on above: Refill Request Start: 02-28-2024 End: 02-28-2024 ambulatory Neville Greco MD Work Phone: Urology Comment on above: Hydronephrosis, unsp ecified hydronephrosis type (Primary Dx); Kidney insufficiency; Malignant neoplasm of urinary bladder, unspecified site (HCC) Start: 02-28-2024 End: 02-28-2024 Telemedicine consultation with patient Neville Greco MD Work Phone: Urology Start: 02-12-2024 Telephone encounter Neville gannon MD Work Phone: [facility] Comment on above: Results Start: 02-05-2024 Telephone encounter Arnie hickman MD Work Phone: [facility] [place] Comment on above: Medication Problem ( RX for Tylenol #4) Start: 01-30-2024 End: 01-30-2024 Subsequent hospital visit by physician [facility] Prep [facility] Comment on above: Hydronephrosis, unsp ecified hydronephrosis type [N13.30] Start: 01-16-2024 Telephone encounter Arnie hickman MD Work Phone: [facility] [place] Comment on above: Release Of Medical R ecords Start: 01-12-2024 End: 01-12-2024 ambulatory NEVILLE GRECO [facility] Facility:[id number] Start: 01-12-2024 End: 01-12-2024 Patient encounter procedure Neville Greco MD Work Phone: Urology Comment on above: Hydronephrosis, unsp ecified hydronephrosis type (Primary Dx); Malignant neoplasm of urinary bladder, unspecified site (HCC); Kidney insufficiency Start: 01-10-2024 Telephone encounter Rowena Donna Sarah juarez HYDRO STATION SUPERVISOR.MAINSTREAMING FACILITATOR Work Phone: [facility] [place] Start: 01-10-2024 End: 01-10-2024 Subsequent hospital visit by physician [facility] Work Phone: Radiology Comment on above: Renal insufficiency [N28.9] Start: 01-09-2024 Orders Only Rowena cross HYDRO STATION SUPERVISOR.MAINSTREAMING FACILITATOR Work Phone: [facility] [place] Comment on above: Abnormal urinalysis (Primary Dx); Bacteria in urine Start: 01-08-2024 End: 01-08-2024 Patient encounter procedure Rowena Sarabia HYDRO STATION SUPERVISOR.MAINSTREAMING FACILITATOR Work Phone: [facility] [place] Comment on above: Cervicalgia (Primary Dx); Essential hypertension; Renal insufficiency; High risk medication use; Encounter for drug screening; S/P ileal conduit (HCC); Chronic bronchitis, unspecified chronic bronchitis type (HCC); Peripheral vascular disease, unspecified (HCC) Start: 01-02-2024 Orders Only Arnie tellez MD Work Phone: [facility] [place] Comment on above: Kidney insufficiency (Primary Dx); Pure hypercholesterolemia Start: 12-29-2023 Non-patient / Non-visit Dr. Marva Chiang Work Phone: [facility] Start: 12-29-2023 End: 12-29-2023 Admission to same day surgery center Dr. Arnie Chiang Work Phone: [facility]End[facility] Work Phone: Start: 12-29-2023 End: 12-29-[address] Arnie Chiang Work Phone: [facility] Work Phone: Start: 12-13-2023 End: 12-13-[address] Arnie Chiang Work Phone: [facility] Work Phone: Start: 12-01-2023 Non-patient / Non-visit Dr. Marva Chiang Work Phone: [facility] Start: 12-01-2023 End: 12-01-[address] Arnie Chiang Work Phone: [facility] Work Phone: Start: 12-01-2023 End: 12-01-[address] Arnie Chiang Work Phone: [facility]Cardiovasc ular Services Work Phone: Start: 08-22-2023 Refill Rowena Older HYDRO STATION SUPERVISOR .MAINSTREAMING FACILITATOR Work Phone: [facility] [place] Comment on above: Refill Request Start: 07-15-2023 Orders Only Arnie tellez MD Work Phone: [facility] [place] Comment on above: Kidney insufficiency (Primary Dx) Start: 07-12-2023 End: 07-12-2023 Patient encounter procedure Rowena Older HYDRO STATION SUPERVISOR.MAINSTREAMING FACILITATOR Work Phone: [facility] [place] Comment on above: Cervicalgia (Primary Dx); Need for influenza vaccination Start: 05-28-2023 Refill Rowena Older HYDRO STATION SUPERVISOR .MAINSTREAMING FACILITATOR Work Phone: [facility] [place] Comment on above: Refill Request Start: 01-17-2023 End: 01-17-2023 Patient encounter procedure Rowena Older HYDRO STATION SUPERVISOR.MAINSTREAMING FACILITATOR Work Phone: [facility] [place] Comment on above: Essential hypertensi on (Primary Dx); Cervicalgia; Tobacco use disorder; S/P ileal conduit (HCC); Peripheral vascular disease, unspecified (HCC); Encounter for drug screening; High risk medications (not anticoagulants) long-term use; Chronic bronchitis, unspecified chronic bronchitis type (HCC) Start: 11-10-2022 Refill Arnie tellez MD Work Phone: [facility] [place] Comment on above: Refill Request Start: 10-10-2022 End: 10-10-2022 Patient encounter procedure Rowena Older HYDRO STATION SUPERVISOR.MAINSTREAMING FACILITATOR Work Phone: [facility] [place] Comment on above: Medicare annual well ness visit, subsequent (Primary Dx); Cervicalgia Start: 10-05-2022 Refill Araceli Earl Work Phone: [facility] [place] Comment on above: Refill Request Start: 08-31-2022 ambulatory Arnie tellez MD Work Phone: Ambulatory Surgery Start: 07-12-2022 End: 07-12-2022 Patient encounter procedure Rowena Capone HYDRO STATION SUPERVISOR.MAINSTREAMING FACILITATOR Work Phone: [facility] [place] Comment on above: Cervicalgia (Primary Dx); Encounter for drug screening; Encounter for long-term current use of high risk medication; Need for influenza vaccination Start: 07-04-2022 Refill Arnie tellez MD Work Phone: [facility] [place] Comment on above: Refill Request Start: 05-10-2022 Refill Arnie tellez MD Work Phone: [facility] [place] Comment on above: Refill Request Start: 05-06-2022 ambulatory [facility] [place] Comment on above: Population Health Na vigation Outreach (humana care gaps) Start: 04-15-2022 End: 04-15-2022 Patient encounter procedure Rowena Capone HYDRO STATION SUPERVISOR.MAINSTREAMING FACILITATOR Work Phone: [facility] [place] Comment on above: Essential hypertensi on (Primary Dx); Pure hypercholesterolemia; Peripheral polyneuropathy; Peripheral vascular disease, unspecified (HCC); Chronic bronchitis, unspecified chronic bronchitis type (HCC); History of colon cancer; Cervicalgia; Encounter for screening for lung cancer; Tobacco use disorder; S/P ileal conduit (HCC); Gastroesophageal reflux disease without esophagitis Procedures Date Procedure Procedure Detail Performing Clinician Start: 01-15-2025 H/O: surgery S/P ileal conduit (HCC) Rowena M No HYDRO STATION SUPERVISOR.MAINSTREAMING FACILITATOR Work Phone: Start: 10-22-2024 Drug tst prsmv instrmnt chem analyzers pr date Arnie Chiang MD Work Phone: Start: 10-22-2024 Adult depression screening assessment Arnie Chiang MD Work Phone: Start: 10-22-2024 Lipid 1996 panel - Serum or Plasma Arnie Chiang MD Work Phone: Start: 05-24-2024 H/O: surgery S/P laparotomy with lysis of adhesions Rowena Donna No HYDRO STATION SUPERVISOR.MAINSTREAMING FACILITATOR Work Phone: Start: 05-24-2024 Radiologic exam chest 2 views Rowena Sarabia HYDRO STATION SUPERVISOR.MAINSTREAMING FACILITATOR Work Phone: Start: 05-10-2024 End: 05-10-2024 Renal function panel Bettye Holland MD Work Phone: Start: 05-09-2024 Glucose quantitative blood xcpt reagent strip Jared Gaspar MD Work Phone: Start: 05-09-2024 Glucose quantitative blood xcpt reagent strip Jared Gaspar MD Work Phone: Start: 05-09-2024 Glucose quantitative blood xcpt reagent strip Jared Gaspar MD Work Phone: Start: 05-09-2024 Renal function panel Tien Lynn HYDRO STATION SUPERVISOR-MAINSTREAMING FACILITATOR Work Phone: Start: 05-08-2024 Glucose quantitative blood xcpt reagent strip Jared Gaspar MD Work Phone: Start: 05-08-2024 Glucose quantitative blood xcpt reagent strip Jared Gaspar MD Work Phone: Start: 05-07-2024 Glucose quantitative blood xcpt reagent strip Jared Gaspar MD Work Phone: Start: 05-07-2024 Glucose quantitative blood xcpt reagent strip Jared Gaspar MD Work Phone: Start: 05-07-2024 Glucose quantitative blood xcpt reagent strip Jared Gaspar MD Work Phone: Start: 05-07-2024 Glucose quantitative blood xcpt reagent strip Jared Gaspar MD Work Phone: Start: 05-07-2024 End: 05-07-2024 Renal function panel Elroy [place] MD Work Phone: Start: 05-06-2024 Glucose quantitative blood xcpt reagent strip Jared Gaspar MD Work Phone: Start: 05-06-2024 Glucose quantitative blood xcpt reagent strip Jared Gaspar MD Work Phone: Start: 05-06-2024 Glucose quantitative blood xcpt reagent strip Jared Gaspar MD Work Phone: Start: 05-06-2024 End: 05-06-2024 Renal function panel Elroy [place] MD Work Phone: Start: 05-05-2024 Glucose quantitative blood xcpt reagent strip Jared Gaspar MD Work Phone: Start: 05-05-2024 Glucose quantitative blood xcpt reagent strip Jared Gaspar MD Work Phone: Start: 05-05-2024 Renal function panel Elroy [place] MD Work Phone: Start: 05-05-2024 Glucose quantitative blood xcpt reagent strip Jared Gaspar MD Work Phone: Start: 05-04-2024 Glucose quantitative blood xcpt reagent strip Jared Gaspar MD Work Phone: Start: 05-04-2024 Glucose quantitative blood xcpt reagent strip Jared Gaspar MD Work Phone: Start: 05-04-2024 End: 05-04-2024 Renal function panel Elroy [place] MD Work Phone: Start: 05-04-2024 Glucose quantitative blood xcpt reagent strip Jared Gaspar MD Work Phone: Start: 05-03-2024 Glucose quantitative blood xcpt reagent strip Jared Gaspar MD Work Phone: Start: 05-03-2024 Glucose quantitative blood xcpt reagent strip Jared Gaspar MD Work Phone: Start: 05-03-2024 Glucose quantitative blood xcpt reagent strip Jared Gaspar MD Work Phone: Start: 05-03-2024 End: 05-03-2024 Blood count complete automated Elroy [place] MD Work Phone: Start: 05-02-2024 Radiologic exam abdomen 1 view Karolina Andrew MD Work Phone: Start: 05-02-2024 Blood typing serologic rh (d) Brenna Ku MD Work Phone: Start: 05-02-2024 Glucose quantitative blood xcpt reagent strip Jared Gaspar MD Work Phone: Start: 05-02-2024 PREPARE RBC Elroy [place] MD Work Phone: Start: 05-02-2024 End: 05-02-2024 Renal function panel Elroy [place] MD Work Phone: Start: 05-01-2024 Glucose quantitative blood xcpt reagent strip Jared Gaspar MD Work Phone: Start: 05-01-2024 Glucose quantitative blood xcpt reagent strip Jared Gaspar MD Work Phone: Start: 05-01-2024 Glucose quantitative blood xcpt reagent strip Jared Gaspar MD Work Phone: Start: 05-01-2024 End: 05-01-2024 Renal function panel Elroy [place] MD Work Phone: Start: 05-01-2024 Blood count complete automated Elroy [place] MD Work Phone: Start: 04-30-2024 Assay of lactate Tim RAMIREZ Work Phone: Start: 04-30-2024 Glucose quantitative blood xcpt reagent strip Jared Gaspar MD Work Phone: Start: 04-30-2024 Glucose quantitative blood xcpt reagent strip Jared Gaspar MD Work Phone: Start: 04-30-2024 PULSE OXIMETRY, CONTINUOUS Brain hernandez MD Work Phone: Start: 04-30-2024 End: 04-30-2024 Potassium serum plasma/whole blood Brenna Ku MD Work Phone: Start: 04-30-2024 PULSE OXIMETRY, CONTINUOUS Brain hernandez MD Work Phone: Start: 04-30-2024 Chloride bld Tim RAMIREZ Work Phone: Start: 04-30-2024 End: 04-30-2024 Exploratory laparotomy celiotomy w/wo biopsy spx Dileep Larios MD Work Phone: Start: 04-30-2024 Blood count complete automated Elroy Winston MD Work Phone: Start: 04-29-2024 End: 04-29-2024 Blood count complete automated Tien Lynn HYDRO STATION SUPERVISOR-MAINSTREAMING FACILITATOR Work Phone: Start: 04-29-2024 Blood typing serologic rh (d) Marifer Daniels MD Work Phone: Start: 04-29-2024 Glucose quantitative blood xcpt reagent strip Jared Gaspar MD Work Phone: Start: 04-29-2024 Radiologic exam abdomen 1 view Brenna Ku MD Work Phone: Start: 04-29-2024 Radiologic exam abdomen 1 view Brenna Ku MD Work Phone: Start: 04-29-2024 Radiologic exam upr gi trc single contrast study Alize Copeland MD Work Phone: Start: 04-28-2024 End: 04-28-2024 Glucose quantitative blood xcpt reagent strip Jared Gaspar MD Work Phone: Start: 04-28-2024 Glucose quantitative blood xcpt reagent strip Jared Gaspar MD Work Phone: Start: 04-28-2024 Glucose quantitative blood xcpt reagent strip Jared Gaspar MD Work Phone: Start: 04-28-2024 Renal function panel Elroy Winston MD Work Phone: Start: 04-27-2024 Glucose quantitative blood xcpt reagent strip Jared Gaspar MD Work Phone: Start: 04-27-2024 Glucose quantitative blood xcpt reagent strip Jared Gaspar MD Work Phone: Start: 04-27-2024 Glucose quantitative blood xcpt reagent strip Jared Gaspar MD Work Phone: Start: 04-27-2024 Glucose quantitative blood xcpt reagent strip Jared Gaspar MD Work Phone: Start: 04-27-2024 Renal function panel Maria Fernanda Earl Work Phone: Start: 04-26-2024 Radiologic exam chest single view Alize Copelnad MD Work Phone: Start: 04-26-2024 Glucose quantitative blood xcpt reagent strip Jared Gaspar MD Work Phone: Start: 04-26-2024 Glucose quantitative blood xcpt reagent strip Jared Gaspar MD Work Phone: Start: 04-26-2024 Radiologic exam abdomen 1 view Elroy Winston MD Work Phone: Start: 04-26-2024 Radiologic exam chest single view Elroy Winston MD Work Phone: Start: 04-26-2024 Renal function panel Maria Fernanda Earl Work Phone: Start: 04-25-2024 Glucose quantitative blood xcpt reagent strip Jared Gaspar MD Work Phone: Start: 04-25-2024 End: 04-25-2024 Renal function panel Elroy Winston MD Work Phone: Start: 04-25-2024 Culture bacterial blood aerobic w/id isolates Elroy Winston MD Work Phone: Start: 04-25-2024 Glucose quantitative blood xcpt reagent strip Jared Gaspar MD Work Phone: Start: 04-25-2024 Culture bacterial quanttative colony count urine Elroy Winston MD Work Phone: Start: 04-25-2024 Urinalysis complete W Reflex Culture panel - Urine Elroy Winston MD Work Phone: Start: 04-25-2024 Ecg routine ecg w/least 12 lds trcg only w/o i&r Alize Copeland MD Work Phone: Start: 04-25-2024 Glucose quantitative blood xcpt reagent strip Jared Gaspar MD Work Phone: Start: 04-25-2024 Radiologic exam chest single view Tienarthur Lynn HYDRO STATION SUPERVISOR-MAINSTREAMING FACILITATOR Work Phone: Start: 04-25-2024 Basic metabolic panel calcium total Tomislanazanin Mina MD Work Phone: Start: 04-24-2024 EXTRA URINE GUTIERREZ TUBE Elroy Winston MD Work Phone: Start: 04-24-2024 Urinalysis complete W Reflex Culture panel - Urine Elroy Winston MD Work Phone: Start: 04-24-2024 Glucose quantitative blood xcpt reagent strip Jared Gaspar MD Work Phone: Start: 04-24-2024 Glucose quantitative blood xcpt reagent strip Jared Gaspar MD Work Phone: Start: 04-24-2024 Ecg routine ecg w/least 12 lds trcg only w/o i&r Bettye Holland MD Work Phone: Start: 04-24-2024 Glucose quantitative blood xcpt reagent strip Jared Gaspar MD Work Phone: Start: 04-24-2024 Renal function panel Maria Fernanda Cuevasved M D Work Phone: Start: 04-24-2024 Radiologic exam chest single view Alize Copeland MD Work Phone: Start: 04-23-2024 End: 04-23-2024 Study Interpretation of outside study Alize Copeland MD Work Phone: Start: 04-23-2024 Glucose quantitative blood xcpt reagent strip Jared Gaspar MD Work Phone: Start: 04-23-2024 Glucose quantitative blood xcpt reagent strip Jared Gaspar MD Work Phone: Start: 04-23-2024 Radiologic exam chest single view Alize Copeland MD Work Phone: Start: 04-23-2024 Radiologic exam abdomen 1 view Prieto Fowler MD Work Phone: Start: 04-23-2024 Cul bact xcpt urine blood/stool aerobic isol Elroy Winston MD Work Phone: Start: 04-23-2024 Cytp slctv cell enhancement interpj xcpt c/v Elroy Winston MD Work Phone: Start: 04-23-2024 Ecg routine ecg w/least 12 lds trcg only w/o i&r Elroy Winston MD Work Phone: Start: 04-23-2024 End: 04-23-2024 Renal function panel Maria Fernanda Cuevasved M D Work Phone: Start: 04-22-2024 Glucose quantitative blood xcpt reagent strip Jared Gaspar MD Work Phone: Start: 04-22-2024 Glucose quantitative blood xcpt reagent strip Jared Gaspar MD Work Phone: Start: 04-22-2024 Glucose quantitative blood xcpt reagent strip Jared Gaspar MD Work Phone: Start: 04-22-2024 Ct abdomen & pelvis w/contrast material Jared Gaspar MD Work Phone: Start: 04-22-2024 Ecg routine ecg w/least 12 lds trcg only w/o i&r Elroy Winston MD Work Phone: Start: 04-22-2024 Glucose quantitative blood xcpt reagent strip Jared Gaspar MD Work Phone: Start: 04-22-2024 Glucose quantitative blood xcpt reagent strip Jared Gaspar MD Work Phone: Start: 04-22-2024 Blood typing serologic rh (d) Mervat Garza MD Work Phone: Start: 04-22-2024 Renal function panel Maria Fernanda Earl Work Phone: Start: 04-21-2024 Glucose quantitative blood xcpt reagent strip Jared Gaspar MD Work Phone: Start: 04-21-2024 Glucose quantitative blood xcpt reagent strip Jared Gaspar MD Work Phone: Start: 04-21-2024 Radiologic exam abdomen 1 view Mervat Garza MD Work Phone: Start: 04-21-2024 Glucose quantitative blood xcpt reagent strip Jared Gaspar MD Work Phone: Start: 04-21-2024 Radiologic exam abdomen 1 view Alize Copeland MD Work Phone: Start: 04-21-2024 Glucose quantitative blood xcpt reagent strip Jared Gaspar MD Work Phone: Start: 04-21-2024 Radiologic exam abdomen 1 view Elroy Winston MD Work Phone: Start: 04-21-2024 Renal function panel Maria Fernanda Earl Work Phone: Start: 04-20-2024 Glucose quantitative blood xcpt reagent strip Jared Gaspar MD Work Phone: Start: 04-20-2024 Glucose quantitative blood xcpt reagent strip Jared Gaspar MD Work Phone: Start: 04-20-2024 Radiologic exam abdomen 1 view Mervat Garza MD Work Phone: Start: 04-20-2024 Glucose quantitative blood xcpt reagent strip Jared Gaspar MD Work Phone: Start: 04-20-2024 Glucose quantitative blood xcpt reagent strip Jared Gaspar MD Work Phone: Start: 04-20-2024 Renal function panel Maria Fernanda Earl Work Phone: Start: 04-20-2024 Glucose quantitative blood xcpt reagent strip Jared Gaspar MD Work Phone: Start: 04-19-2024 Cul prsmptv pthgnc organism scrn w/colony estimj Jared Gaspar MD Work Phone: Start: 04-19-2024 Unlisted computed tomography procedure Jared Gaspar MD Work Phone: Start: 04-19-2024 Radiologic exam complete acute abdomen series Kavitha Curiel MD Work Phone: Start: 04-19-2024 Insertion picc w/o img gdn 5 yr/> Jared Gaspar MD Work Phone: Start: 04-19-2024 Unlisted computed tomography procedure Alize Copeland MD Work Phone: Start: 04-19-2024 Comprehensive metabolic panel Maria Fernanda Mina MD Work Phone: Start: 04-19-2024 Bilirubin direct Maria Fernanda Mina MD Work Phone: Start: 04-19-2024 Blood typing serologic rh (d) Maria Fernanda Mina MD Work Phone: Start: 04-19-2024 Radiologic exam abdomen 1 view Maria Fernanda Mina MD Work Phone: Start: 04-05-2024 Kidney img morphology vascular flow 1 w/rx Adrián Yarbrough MD Work Phone: Start: 01-10-2024 Us retroperitoneal real time w/image complete Rowena Sarabia HYDRO STATION SUPERVISOR.MAINSTREAMING FACILITATOR Work Phone: Start: 01-08-2024 Urnls dip stick/tablet reagent auto microscopy Rowena Sarabia HYDRO STATION SUPERVISOR.MAINSTREAMING FACILITATOR Work Phone: Start: 01-02-2024 Lipid 1996 panel - Serum or Plasma Arnie Chiang MD Work Phone: Start: 12-29-2023 End: 12-29-[address] Anrie Chiang Work Phone: Start: 07-14-2023 Lipid 1996 panel - Serum or Plasma Arnie Chiang MD Work Phone: Start: 07-12-2023 INFLUENZA VACCINE, PRSV FREE, AGE 65+ YR, HIGH DOSE, QUADRIVALENT (FLUZONE HIGH-DOSE) Rowena Older HYDRO STATION SUPERVISOR.MAINSTREAMING FACILITATOR Work Phone: Start: 07-12-2022 INFLUENZA SEASONAL QUADRIVALENT HIGH DOSE AGE 65+ Rowena Older HYDRO STATION SUPERVISOR.MAINSTREAMING FACILITATOR Work Phone: Start: 07-04-2022 Lipid 1996 panel - Serum or Plasma Rowena Older HYDRO STATION SUPERVISOR.MAINSTREAMING FACILITATOR Work Phone: Start: 04-15-2022 Adult depression screening assessment Rowena Older HYDRO STATION SUPERVISOR.MAINSTREAMING FACILITATOR Work Phone: Start: 03-30-2021 H/O: surgery S/P ileal conduit Rowena Older HYDRO STATION SUPERVISOR.MAINSTREAMING FACILITATOR Work Phone: Start: 07-04-2017 Colonoscopy Rowena Older HYDRO STATION SUPERVISOR.MAINSTREAMING FACILITATOR Work Phone: H/O: surgery S/P ileal condui t (HCC) Rowena Older HYDRO STATION SUPERVISOR.MAINSTREAMING FACILITATOR Work Phone: H/O: surgery S/P ileal condui t (HCC) Rowena Older HYDRO STATION SUPERVISOR.MAINSTREAMING FACILITATOR Work Phone: H/O: surgery S/P ileal condui t (HCC) Rowena M No HYDRO STATION SUPERVISOR.MAINSTREAMING FACILITATOR Work Phone: H/O: surgery S/P laparotomy w ith lysis of adhesions Arnie Chiang MD Work Phone: Plan of Treatment Date Care Activity Detail Author Start: 10-22-2029 Lipid panel Lipid Screening [facility] Start: 04-04-2029 Urine microalbumin profile [facility] Start: 04-04-2029 [facility] Start: 01-01-2029 Lipid panel Lipid Screening [facility] Start: 12-28-2028 Screening for malignant neoplasm of colon [facility] Start: 10-20-2028 Lipid panel Lipid Screening [facility] Start: 07-14-2028 Lipid 1996 panel - Serum or Plasma Lipid Screening [facility] Start: 07-04-2027 Lipid 1996 panel - Serum or Plasma Lipid Screening [facility] Start: 07-04-2027 LIPID SCREEN LIPID SCREEN [facility] Start: 05-24-2027 Diabetes Screening Diabetes Screening [facility] Start: 04-25-2027 Diabetes Screening Diabetes Screening [facility] Start: 01-01-2027 Diabetes Screening Diabetes Screening [facility] Start: 10-20-2026 Diabetes Screening Diabetes Screening [facility] Start: 07-14-2026 Diabetes Screening Diabetes Screening [facility] Start: 04-29-2026 Annual PCP Team Chronic Disease Visit Annual PCP Team Chronic Disease Visit [facility] Start: 04-18-2026 Annual PCP Team Chronic Disease Visit Annual PCP Team Chronic Disease Visit [facility] Start: 04-18-2026 Complete blood count Hemoglobin/Hematocrit [facility] Start: 03-23-2026 LIPID SCREEN LIPID SCREEN [facility] Start: 01-15-2026 Annual PCP Team Chronic Disease Visit Annual PCP Team Chronic Disease Visit [facility] Start: 01-15-2026 BP Controlled (<130/80) BP Controlled (<130/80) [facility] in Start: 01-15-2026 Complete blood count Hemoglobin/Hematocrit [facility] Start: 12-13-2025 Complete blood count Hemoglobin/Hematocrit [facility] Start: 10-22-2025 Annual PCP Team Chronic Disease Visit Annual PCP Team Chronic Disease Visit [facility] Start: 10-22-2025 Anxiety Screening Anxiety Screening [facility] Start: 10-22-2025 BP Controlled (<130/80) BP Controlled (<130/80) [facility] in Start: 10-22-2025 Complete blood count Hemoglobin/Hematocrit [facility] Start: 10-22-2025 Depression Screening Depression Screening [facility] Start: 07-24-2025 End: 07-24-2025 Patient encounter procedure 07/24/2025 8:00 AM EDT Office Visit [facility] [address] [place], [place] [id number] Arnie Chiang MD [address] [place] [address] MEDICARE 6 MONTHS [facility] Comment on above: MEDICARE 6 MONTHS Start: 07-18-2025 Annual PCP Team Chronic Disease Visit Annual PCP Team Chronic Disease Visit [facility] Start: 07-18-2025 BP Controlled (<130/80) BP Controlled (<130/80) [facility] Start: 07-04-2025 DIABETES SCREEN DIABETES SCREEN [facility] Start: 07-04-2025 Diabetes Screening Diabetes Screening [facility] Start: 06-23-2025 Influenza vaccination [facility] Start: 05-24-2025 Annual PCP Team Chronic Disease Visit Annual PCP Team Chronic Disease Visit [facility] Start: 05-24-2025 BP Controlled (<130/80) BP Controlled (<130/80) [facility] Start: 05-24-2025 Complete blood count Hemoglobin/Hematocrit [facility] Start: 05-24-2025 Creatinine measurement Serum Creatinine [facility] Start: 05-10-2025 Creatinine measurement Serum Creatinine [facility] Start: 05-07-2025 Complete blood count Hemoglobin/Hematocrit [facility] Start: 04-18-2025 End: 04-18-2025 Patient encounter procedure 04/18/2025 8:00 AM EDT Office Visit [facility] [place] [address] [place] [address] Rowena Sarabia, HYDRO STATION SUPERVISOR.MAINSTREAMING FACILITATOR [address] [place] [address] FOLLOW UP 3 MONTHS CONTROLLED MED [facility] [place] Comment on above: FOLLOW UP 3 MONTHS CONTROLLED [facility] Start: 2025 RSV Vaccine (1 - 1-dose 75+ series) RSV Vaccine (1 - 1-dose 75+ series) [facility] Start: 03-24-2025 End: 06-23-2025 CBC panel - Blood by Automated count COMPLETE BLOOD COUNT Lab Routine Anemia, unspecified type Expected: 03/24/2025 (Approximate), Expires: 06/23/2025 [facility] Work Phone: Comment on above: Expected: 03/24/2025 (Approximate), Expi res: 06/23/2025 Start: 03-24-2025 End: 06-23-2025 Ferritin [Mass/volume] in Serum or Plasma FERRITIN Lab Routine Anemia, unspecified type Expected: 03/24/2025 (Approximate), Expires: 06/23/2025 [facility] Comment on above: Expected: 03/24/2025 (Approximate), Expi res: 06/23/2025 Start: 03-24-2025 End: 06-23-2025 Iron and Iron binding capacity panel - Serum or Plasma IRON AND TIBC Lab Routine Anemia, unspecified type Expected: 03/24/2025 (Approximate), Expires: 06/23/2025 [facility] Comment on above: Expected: 03/24/2025 (Approximate), Expi res: 06/23/2025 Start: 02-28-2025 Creatinine measurement Serum Creatinine [facility] Start: 01-21-2025 End: 04-22-2025 Hemoglobin.gastrointest inal.lower [Presence] in Stool by Immunoassay IMMUNOCHEMICAL FECAL OCCULT BLOOD TEST Lab Routine Anemia, unspecified type Expected: 01/21/2025 (Approximate), Expires: 04/22/2025 [facility] Comment on above: Expected: 01/21/2025 (Approximate), Expi res: 04/22/2025 Start: 01-15-2025 End: 04-16-2025 CBC panel - Blood by Automated count [facility] Work Phone: Comment on above: Expected: 01/15/2025, Expires: Start: 01-15-2025 End: 04-16-2025 Ferritin [Mass/volume] in Serum or Plasma [facility] Comment on above: Expected: 01/15/2025, Expires: Start: 01-15-2025 End: 04-16-2025 Iron and Iron binding capacity panel - Serum or Plasma [facility] Comment on above: Expected: 01/15/2025, Expires: Start: 01-15-2025 End: 01-15-2025 Patient encounter procedure 01/15/2025 8:20 AM EDT Office Visit Internal [facility] [place] [address] [place] [address] Rowena Sarabia, HYDRO STATION SUPERVISOR.MAINSTREAMING FACILITATOR [address] [place] [address] 3 month follow up [facility] Comment on above: 3 month follow up Start: 01-07-2025 Annual PCP Team Chronic Disease Visit Annual PCP Team Chronic Disease Visit [facility] Start: 01-07-2025 BP Controlled (<130/80) BP Controlled (<130/80) [facility] Start: 11-28-2024 End: 02-27-2025 CBC panel - Blood by Automated count COMPLETE BLOOD COUNT Lab Routine Anemia, unspecified type Expected: 11/28/2024 (Approximate), Expires: 02/27/2025 [facility] Comment on above: Expected: 11/28/2024 (Approximate), Expi res: 02/27/2025 Start: 11-28-2024 End: 02-27-2025 Ferritin [Mass/volume] in Serum or Plasma FERRITIN Lab Routine Anemia, unspecified type Expected: 11/28/2024 (Approximate), Expires: 02/27/2025 [facility] Comment on above: Expected: 11/28/2024 (Approximate), Expi res: 02/27/2025 Start: 11-28-2024 End: 02-27-2025 Iron and Iron binding capacity panel - Serum or Plasma IRON AND TIBC Lab Routine Anemia, unspecified type Expected: 11/28/2024 (Approximate), Expires: 02/27/2025 [facility] Work Phone: Comment on above: Expected: 11/28/2024 (Approximate), Expi res: 02/27/2025 Start: 10-23-2024 Advance Directive Discussion Advance Directive Discussion [facility] Start: 10-23-2024 Medicare Advantage Annual Wellness Visit Medicare Advantage Annual Wellness Visit [facility] Start: 10-22-2024 End: 10-22-2024 Patient encounter procedure 10/22/2024 8:40 AM EST Office Visit [facility] [place] [address] [place], [place] [id number] Arnie Chiang MD [address] [place], [place] [id number] 3 month follow up [facility] Comment on above: 3 month follow up Start: 10-20-2024 Annual PCP Team Chronic Disease Visit Annual PCP Team Chronic Disease Visit [facility] Start: 10-20-2024 Shingrix Vaccine (1 of 2) Shingrix Vaccine (1 of 2) [facility] Comment on above: Postponed from 2000 (Declined at t his time) Start: 09-22-2024 End: 12-22-2024 CBC panel - Blood by Automated count COMPLETE BLOOD COUNT Lab Routine Anemia, unspecified type Expected: 09/22/2024 (Approximate), Expires: 12/22/2024 [facility] Comment on above: Expected: 09/22/2024 (Approximate), Expi res: 12/22/2024 Start: 09-22-2024 End: 12-22-2024 Ferritin [Mass/volume] in Serum or Plasma FERRITIN Lab Routine Anemia, unspecified type Expected: 09/22/2024 (Approximate), Expires: 12/22/2024 [facility] Comment on above: Expected: 09/22/2024 (Approximate), Expi res: 12/22/2024 Start: 09-22-2024 End: 12-22-2024 Iron and Iron binding capacity panel - Serum or Plasma IRON AND TIBC Lab Routine Anemia, unspecified type Expected: 09/22/2024 (Approximate), Expires: 12/22/2024 [facility] Comment on above: Expected: 09/22/2024 (Approximate), Expi res: 12/22/2024 Start: 09-22-2024 End: 12-22-2024 Lipid 1996 panel - Serum or Plasma LIPID PANEL BASIC Lab Routine Pure hypercholesterolemia Expected: 09/22/2024 (Approximate), Expires: 12/22/2024 [facility] Work Phone: Comment on above: Expected: 09/22/2024 (Approximate), Expi res: 12/22/2024 Start: 07-18-2024 End: 07-18-2024 Patient encounter procedure 07/18/2024 8:40 AM EDT Office Visit [facility] [place] [address] [place] [address] Rowena Sarabia, HYDRO STATION SUPERVISOR.MAINSTREAMING FACILITATOR [address] [place] [address] 3 month follow up [facility] Comment on above: 3 month follow up Start: 07-16-2024 End: 07-16-2024 Patient encounter procedure 07/16/2024 8:40 AM EDT Office Visit [facility] [place] [address] [place] [address] Arnie Chiang MD [address] [place] [address] 3 month follow up [facility] [place] Comment on above: 3 month follow up Start: 07-14-2024 Complete blood count Hemoglobin/Hematocrit [facility] Start: 07-12-2024 Annual PCP Team Chronic Disease Visit Annual PCP Team Chronic Disease Visit [facility] Start: 06-23-2024 Influenza vaccination [facility] Start: 05-24-2024 End: 08-23-2024 Cobalamin (Vitamin B12) [Mass/volume] in Serum or Plasma [facility] Work Phone: Comment on above: Expected: 05/24/2024, Expires: Start: 05-24-2024 End: 08-23-2024 Folate [Mass/volume] in Serum or Plasma [facility] Comment on above: Expected: 05/24/2024, Expires: 4 Start: 04-20-2024 ANNUAL PCP TEAM CHRONIC DISEASE VISIT ANNUAL PCP TEAM CHRONIC DISEASE VISIT [facility] Start: 04-20-2024 COVID-19 VACCINE (3 - Moderna series) COVID-19 VACCINE (3 - Moderna series) [facility] Comment on above: Postponed from 03/17/2021 (Declined at t his time) Start: 04-19-2024 End: 04-19-2024 Patient encounter procedure 04/19/2024 8:40 AM EDT Office Visit [facility] [place] [address] [place], [place] [id number] Arnie Chiang MD [address] [place], [place] [id number] 6 month follow up [facility] [place] Comment on above: 6 month follow up Start: 04-01-2024 End: 04-01-2024 Patient encounter procedure 04/01/2024 12:45 PM EDT Appointment Nuclear Medicine [address] [place] [address] Hydronephrosis of right kidney [N13.30] [facility] Medicine Comment on above: Hydronephrosis of right kidney [N13.30] Start: 03-23-2024 DIABETES SCREEN DIABETES SCREEN [facility] Start: 03-20-2024 End: 03-20-2024 Patient encounter procedure 03/20/2024 3:30 PM EDT Office Visit Urology [address] [place] [address] Adrián Yarbrough MD [address] [place] [address] 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 Dr. Dang patient Start: 03-20-2024 End: 04-19-2025 NM Views for blood flow and kidney function W diuretic IV NM RENAL FLOW/FXN W PHARM Radiology Routine Hydronephrosis of right kidney Expected: 03/20/2024, Expires: 04/19/2025 [facility] Work Phone: Comment on above: Expected: 03/20/2024, Expires: 5 Start: 02-29-2024 End: 05-30-2024 Renal function 2000 panel - Serum or Plasma RENAL FUNCTION PANEL Lab Routine Hydronephrosis, unspecified hydronephrosis type Kidney insufficiency Expected: 02/29/2024, Expires: 05/30/2024 [facility] Work Phone: Comment on above: Expected: 02/29/2024, Expires: 4 Start: 02-28-2024 End: 02-28-2024 Follow-up encounter 02/28/2024 4:00 PM EDT [facility] [address] [place] [id number] Neville Greco MD [address] [place] [address] FOLLOW UP Urology Comment on above: FOLLOW UP Start: 01-18-2024 ANNUAL PCP TEAM CHRONIC DISEASE VISIT ANNUAL PCP TEAM CHRONIC DISEASE VISIT [facility] Start: 01-18-2024 BP CONTROLLED (<130/80) BP CONTROLLED (<130/80) [facility] in Start: 01-09-2024 End: 04-09-2024 Bacteria identified in Urine by Culture URINE CULTURE Microbiology Routine Abnormal urinalysis Bacteria in urine Expected: 01/09/2024, Expires: 04/09/2024 [facility] Work Phone: Comment on above: Expected: 01/09/2024, Expires: 4 Start: 12-29-2023 Patient discharge [facility] Start: 10-23-2023 Advance Directive Discussion Advance Directive Discussion [facility] Start: 10-23-2023 Behavioral Health Screening Behavioral Health Screening [facility] Start: 10-23-2023 Depression Assessment Depression Assessment [facility] Start: 10-10-2023 ANNUAL PCP TEAM CHRONIC DISEASE VISIT ANNUAL PCP TEAM CHRONIC DISEASE VISIT [facility] Start: 10-10-2023 BP CONTROLLED (<130/80) BP CONTROLLED (<130/80) [facility] in Start: 07-29-2023 End: 09-28-2023 Basic metabolic 2000 panel - Serum or Plasma BASIC METABOLIC PNL Lab Routine Kidney insufficiency Expected: 07/29/2023, Expires: 09/28/2023 [facility] Work Phone: Comment on above: Expected: 07/29/2023, Expires: Start: 07-12-2023 ANNUAL PCP TEAM CHRONIC DISEASE VISIT ANNUAL PCP TEAM CHRONIC DISEASE VISIT [facility] Start: 07-12-2023 BP CONTROLLED (<130/80) BP CONTROLLED (<130/80) [facility] Start: 07-12-2023 SHINGRIX VACCINE (1 of 2) SHINGRIX VACCINE (1 of 2) [facility] Comment on above: Postponed from 2000 (Declined at t his time) Start: 06-23-2023 Covid-19 Vaccine ( season) Covid-19 Vaccine ( season) [facility] Start: 06-23-2023 Influenza vaccination INFLUENZA (#1) [facility] Start: 06-23-2023 [facility] Start: 04-15-2023 Adult depression screening assessment DEPRESSION SCREENING [facility] Start: 04-15-2023 ANNUAL PCP TEAM CHRONIC DISEASE VISIT ANNUAL PCP TEAM CHRONIC DISEASE VISIT [facility] Start: 04-15-2023 COVID-19 VACCINE (3 - Booster for Moderna series) COVID-19 VACCINE (3 - Booster for Moderna series) [facility] Comment on above: Postponed from 06/22/2021 (Declined at t his time) Postponed from 03/17 (Declined at this time) Start: 10-23-2022 ADVANCE DIRECTIVE DISCUSSION ADVANCE DIRECTIVE DISCUSSION [facility] Start: 10-23-2022 DEPRESSION ASSESSMENT DEPRESSION ASSESSMENT [facility] Start: 07-12-2022 End: 09-11-2022 TOX SCREEN ROUT UR [facility] Work Phone: Comment on above: Expected: 07/12/2022, Expires: 2 Start: 06-23-2022 Influenza vaccination INFLUENZA (#1) [facility] Start: 10-23-2021 DEPRESSION ASSESSMENT DEPRESSION ASSESSMENT [facility] Start: 05-12-2021 BP CONTROLLED (<130/80) BP CONTROLLED (<130/80) [facility] Start: 07-04-2020 Colonoscopy COLONOSCOPY [facility] Start: 07-04-2020 COLORECTAL CANCER SCREENING COLORECTAL CANCER SCREENING [facility] Start: 08-24-2017 Influenza vaccination LUNG CANCER SCREENING [facility] Start: 07-04-2017 End: 07-04-2017 Appointment Appointment [facility] Work Phone: Start: 06-15-2017 End: 06-15-2017 Appointment Appointment [facility] Work Phone: Start: 06-15-2017 End: 06-15-2017 Diagnostic colonoscopy Colonoscopy [facility] Work Phone: Start: 06-04-2016 FECAL OCCULT BLOOD FECAL OCCULT BLOOD [facility] Start: 06-04-2016 Screening for malignant neoplasm of colon Fecal Occult Blood [facility] Start: 2015 Abdominal aortic aneurysm screening [facility] Start: 2010 RSV Vaccine (1 - 1-dose 60+ series) RSV Vaccine (1 - 1-dose 60+ series) [facility] Start: 2010 [facility] Start: 2000 SHINGRIX VACCINE (1 of 2) SHINGRIX VACCINE (1 of 2) [facility] Start: 2000 [facility] Start: 1995 COLOGUARD (FIT-DNA) COLOGUARD (FIT-DNA) [facility] Start: [address] COLONOGRAPHY [facility] Start: 1995 Screening for malignant neoplasm of colon [facility] Start: 1995 SIGMOIDOSCOPY SIGMOIDOSCOPY [facility] Start: 1968 Anxiety Screening Anxiety Screening [facility] Start: 1968 Depression Screening Depression Screening [facility] Start: 1968 Hepatitis C screening [facility] Start: 1950 Lipid panel [facility] Start: 1950 Medicare Annual Wellness Visit [facility] Start: 1950 Screening for malignant neoplasm of colon [facility] End: 02-10-2025 CT Abdomen and Pelvis WO contrast CT ABD/PEL WO IVCON Radiology Routine Hydronephrosis, unspecified hydronephrosis type 1 Occurrences starting 01/12/2024 until 02/10/2025 [facility] Work Phone: Comment on above: 1 Occurrences starting 01/12/2024 until 02/10/2025 CT Abdomen and Pelvi s WO contrast CT ABD/PEL WO IVCON Radiology Routine Hydronephrosis, unspecified hydronephrosis type 01/30/2024 10:03 AM EDT [facility] Work Phone: End: 04-24-[address] [facility] Work Phone: Electrocardiogram, 12-lead PRN ACS symptoms [facility] Work Phone: End: 05-12-2024 Glucose [Mass/volume] in Serum or Plasma [facility] Work Phone: End: 04-19-[address] In[address] [facility] Work Phone: Patient referral [facility] Work Phone: End: 08-31-2023 Screening colonoscopy COLONOSCOPY SCREENING Endoscopy Routine Screening for colon cancer 1 Occurrences starting 08/31/2022 until 08/31/2023 [facility] Work Phone: Comment on above: 1 Occurrences starting 08/31/2022 until 08/31/2023 TOX SCREEN ROUT UR TOX SCREEN RO [facility] UR Lab Routine Encounter for drug screening High risk medications (not anticoagulants) long-term use 01/17/2023 8:27 AM EDT [facility] Work Phone: TOX SCREEN ROUT UR TOX SCREEN RO UT UR Lab Routine High risk medication use Encounter for drug screening 01/08/2024 9:02 AM EDT [facility] Work Phone: Transfuse RBC :2 Hours Unive [facility] Work Phone: Transfuse RBC: 1 Uni ts :2 Hours [facility] Work Phone: End: 02-06-2025 US Kidney - bilateral and Urinary bladder US KIDNEY/BLADDER Radiology Routine Renal insufficiency 1 Occurrences starting 01/08/2024 until 02/06/2025 [facility] Work Phone: Comment on above: 1 Occurrences starting 01/08/2024 until 02/06/2025 [facility] Immunizations Immunization Date Immunization Notes Care Provider Fa [facility] 07-18-2024 influenza, high dose seasonal, preservative-free Rowena No HYDRO STATION SUPERVISOR.MAINSTREAMING FACILITATOR Work Phone: [facility] 07-18-2024 influenza virus vaccine, unspecified formulation Arnie Chiang MD Work Phone: [facility] 07-12-2023 influenza (HD-IIV4) vaccine, age 65+ yr, high dose, quadrivalent, PF (FLUZONE HIGH-DOSE) Rowena Older HYDRO STATION SUPERVISOR.MAINSTREAMING FACILITATOR Work Phone: [facility] Work Phone: 07-12-2023 influenza virus vaccine, unspecified formulation Arnie Chiang MD Work Phone: [facility] 07-12-2022 influenza, high-dose , quadrivalent vaccine (FLUZONE HIGH DOSE QUADRIVALENT) Rowena Older HYDRO STATION SUPERVISOR.MAINSTREAMING FACILITATOR Work Phone: [facility] Work Phone: 07-09-2021 influenza, high-dose , quadrivalent vaccine (FLUZONE HIGH DOSE QUADRIVALENT) Rowena Older HYDRO STATION SUPERVISOR.MAINSTREAMING FACILITATOR Work Phone: [facility] 01-20-2021 COVID-19 vaccine, fu ll dose (MODERNA) Rowena Older HYDRO STATION SUPERVISOR.MAINSTREAMING FACILITATOR Work Phone: [facility] Work Phone: 12-23-2020 COVID-19 vaccine, fu ll dose (MODERNA) Rowena Older HYDRO STATION SUPERVISOR.MAINSTREAMING FACILITATOR Work Phone: [facility] Work Phone: 08-14-2020 influenza, high-dose , quadrivalent vaccine (FLUZONE HIGH DOSE QUADRIVALENT) Rowena Older HYDRO STATION SUPERVISOR.MAINSTREAMING FACILITATOR Work Phone: [facility] Work Phone: 08-23-2019 influenza, high dose seasonal, preservative-free Rowena Older HYDRO STATION SUPERVISOR.MAINSTREAMING FACILITATOR Work Phone: [facility] 04-04-2019 tetanus toxoid, redu tami diphtheria toxoid, and acellular pertussis vaccine, adsorbed Rowena Older HYDRO STATION SUPERVISOR.MAINSTREAMING FACILITATOR Work Phone: [facility] Work Phone: 08-07-2018 influenza, high dose seasonal, preservative-free Rowena Older HYDRO STATION SUPERVISOR.MAINSTREAMING FACILITATOR Work Phone: [facility] Work Phone: 07-07-2017 influenza, high dose seasonal, preservative-free Rowena Older HYDRO STATION SUPERVISOR.MAINSTREAMING FACILITATOR Work Phone: [facility] Work Phone: 08-23-2016 pneumococcal polysaccharide vaccine, 23 valent Rowena Older HYDRO STATION SUPERVISOR.MAINSTREAMING FACILITATOR Work Phone: [facility] Work Phone: 07-05-2016 influenza, high dose seasonal, preservative-free Rowena Older HYDRO STATION SUPERVISOR.MAINSTREAMING FACILITATOR Work Phone: [facility] 07-13-2015 influenza, high dose seasonal, preservative-free Rowena Older HYDRO STATION SUPERVISOR.MAINSTREAMING FACILITATOR Work Phone: [facility] 05-25-2015 pneumococcal conjuga te vaccine, 13 valent Rowena Older HYDRO STATION SUPERVISOR.MAINSTREAMING FACILITATOR Work Phone: [facility] 08-20-2014 influenza, high dose seasonal, preservative-free Rowena Older HYDRO STATION SUPERVISOR.MAINSTREAMING FACILITATOR Work Phone: [facility] 08-16-2013 influenza virus vaccine, unspecified formulation Rowena Older HYDRO STATION SUPERVISOR.MAINSTREAMING FACILITATOR Work Phone: [facility] Work Phone: 04-22-2011 pneumococcal polysaccharide vaccine, 23 valent Rowena Older HYDRO STATION SUPERVISOR.MAINSTREAMING FACILITATOR Work Phone: [facility] 04-22-2011 pneumococcal vaccine , unspecified formulation Dr. Arnie Chiang Work Phone: [facility] 07-08-2010 pneumococcal polysaccharide vaccine, 23 valent Rowena Older HYDRO STATION SUPERVISOR.MAINSTREAMING FACILITATOR Work Phone: [facility] Work Phone: Payers Date Payer Category Payer Medicare [id number] 2024 Medicare (Managed Care) THP SECU RECHOICE MDCR PPO [id number] 2024 Unknown [id number] 2024 Self-pay [id number] 2021 Medicare HUMANA MEDICARE HUMANA GOLD PLUS [id number] 2021-Present [phone] [address] [address] [place] [id number] [facility] [id number] 2019 Medicare [id number] 2015 Medicare [id number] 2015 Unknown [id number] 1950 Unknown [id number] Unknown [id number] Unknown [id number] Unknown [id number] Unknown [id number] Unknown [id number] Unknown [id number] Unknown [id number] Unknown [id number] Unknown [id number] Social History Date Type Detail Facility Start: 1970 End: 10-22-2024 Tobacco smoking status WIIS Smokes tobacco daily [facility] Work Phone: Start: 1970 History of tobacco use Cigarette Smo ker [facility] Start: 04-15-2022 End: 04-29-2025 Alcohol intake Current drinker of alcohol (finding) [facility] Start: 01-06-2022 History SDOH Alcohol Frequency 2 [facility] Start: 01-06-2022 History SDOH Alcohol Binge 1 [facility] Start: 10-17-2019 History SDOH Alcohol Comment occasional beer [facility] Start: 01-06-2022 History SDOH Social Connections Phone 5 [facility] Start: 01-06-2022 History SDOH Social Connections Get Together 3 [facility] Start: 1950 Sex Assigned At Not on file [facility] Start: 04-01-2021 End: 04-20-2023 Cigarettes smoked current (pack per day) - Reported 1 [facility] Start: 04-01-2021 End: 10-22-2024 Tobacco use and exposure Smokeless tobacco non-user [facility] Work Phone: Start: 07-02-2022 End: 04-19-2024 Exposure to SARS-CoV-2 (event) Not sure [facility] Work Phone: Start: 01-05-2022 End: 04-20-2023 Social connection and isolation panel [facility] Do you belong to any clubs or organizations such as restorationist groups, unions, fraternal or athletic groups, or school groups? No [facility] Are you now , , , , never or living with a partner? [facility] How often to you hav e a drink containing alcohol? Monthly or less [facility] How many standard dr inks containing alcohol do you have on a typical day? 3 or 4 [facility] How often do you hav e 6 or more drinks on 1 occasion? Never [facility] How hard is it for y ou to pay for the very basics like food, housing, medical care, and heating Somewhat hard [facility] Start: 09-23-2012 Adult Depression Screening Assessment 0 [facility] Work Phone: Do you feel stress - tense, restless, nervous, or anxious, or unable to sleep at night because your mind is troubled all the time - these days [OSQ] Not at all [facility] (I/We) worried wheth er (my/our) food would run out before (I/we) got money to buy more. Never true [facility] Start: 06-29-2021 End: 12-27-2023 Tobacco smoking status NHIS Unknown if ever smoked [facility] Start: 1950 Sex Assigned At Male W [facility] How many standard dr inks containing alcohol do you have on a typical day? 1 or 2 [facility] Work Phone: Start: 08-23-2024 Tobacco smoking stat us NHIS Current Heavy tobacco smoker [facility] Medical Equipment Procedure Code Equipment Code Equipment Origin al Text Equipment Identifier Dates Colonoscopy Ligation clip, metallic [id number] FDA Start: 12-29-2023 Colonoscopy Ligation clip, metallic [id number] FDA Start: 12-29-2023 Port Implantable Power Port 6fr - [id number] Start: 08-28-2013 Comment on above: Description: PowerPo rt Stent Inlay Opti ma 7fr Taper [place] Green Polymer Phreecoat 30cm Ureteral - [id number] Start: 08-29-2016 Stent Inlay Opti ma 7fr Taper [place] Green Polymer Phreecoat 30cm Ureteral - [id number] Start: 08-29-2016 ([id number]) Peripheral arter y stent, bare-metal ()[id number] FDA Start: 06-21-2021 ([id number]) Wound hydrogel dressing, non-antimicrobial ()[id number] FDA Start: 06-21-2021 Goals Date Patient Goal Desired Activity /State Functional Status Date Assessment Result Facility 08-31-2016 Are you deaf, or do you have serious difficulty hearing Yes 08/31/2016 3:21 PM Giulia Franco RN Yes [facility] 08-31-2016 Are you blind, or do you have serious difficulty seeing, even when wearing glasses No 08/31/2016 3:21 PM Giulia Franco RN No [facility] 08-31-2016 Do you have serious difficulty walking or climbing stairs No 08/31/2016 3:21 PM Giulia Franco RN No [facility] 08-31-2016 Do you have difficul ty dressing or bathing No 08/31/2016 3:21 PM Giulia Franco RN No [facility] 08-31-2016 Because of a physica l, mental, or emotional condition, do you have difficulty doing errands alone such as visiting a physician's office or shopping No 08/31/2016 3:21 PM Giulia Franco RN No [facility] Mental Status Date Assessment Result Facility 12-29-2023 Cognitive function Voice/Name [facility] Work Phone: 08-31-2016 Because of a physica l, mental, or emotional condition, do you have serious difficulty concentrating, remembering, or making decisions 08/31/2016 3:21 PM EST Giulia Roberson, LYNDSEY No [facility] Clinical Notes 09-07-2017 to 07-01-2025 Telephone Encounter - Laquita Merida LPN - 07/01/2025 3:59 PM EDTTelephone Encounter - Laquita Merida LPN - 07/01/2025 3:59 PM EDTPatient InstructionsPatient InstructionsPatient Instructions Note Date & Type Note Facility 07-01-2025 Telephone encounter Note Patient has been identified by name and date of : Yes Patient phones for refill(s): Requested Prescriptions Pending Prescriptions Disp Refills hydrOXYzine HCl (ATARAX) 25 mg tablet Sig: Take 1-2 tablets by mouth at bedtime as needed (insomnia). Date of last office visit in primary care: 04/29/2025 Date of next office visit in primary care: 07/24/2025 Please advise. Thank you. Laquita Merida LPN. [facility] 07-01-2025 Miscellaneous Notes Patient has been identified by name and date of : Yes Patient phones for refill(s): Requested Prescriptions Pending Prescriptions Disp Refills hydrOXYzine HCl (ATARAX) 25 mg tablet Sig: Take 1-2 tablets by mouth at bedtime as needed (insomnia). Date of last office visit in primary care: 04/29/2025 Date of next office visit in primary care: 07/24/2025 Please advise. Thank you. Laquita Merida LPN. documented in this encounter [facility] 04-29-2025 Instructions Rowena Sarabia APRN.MAINSTREAMING FACILITATOR - 04/29/2025 9:01 AM EDT We discussed your difficulty sleeping: - You have been taking hydroxyzine for sleep, which was prescribed at [facility]. You reported sleeping 5 hours last night after taking it. - I recommend taking 2 hydroxyzine tablets at bedtime to help you sleep. Do not take it during the day unless needed. If you wake up in the middle of the night and cannot fall back asleep, you may take 1 additional tablet at that time. - Hydroxyzine is to be taken as needed. If you feel you no longer need it, you can stop taking it. - You currently have 24 tablets left. If you are running low and still need it, let me know, and I can send in a refill. - If your sleep issues persist, we may consider referring you to a sleep specialist. We discussed your iron levels and anemia: - Your recent blood work shows that your iron levels have improved and are almost back to normal. Your blood counts are stable, but you are still slightly anemic. - Continue taking your iron supplement for another 30 days, then you can stop. - You may use zxou-umx-xqwqoba iron supplements instead of the prescription if that is more convenient for you. - You do not need repeat blood work at this time. We will recheck your levels in 6 months unless you start feeling significantly more tired than usual. We discussed your eye infection: - Continue using the antibiotic eye drops 4 times a day for a total of 7 days. You started them on Monday, so you should finish the course by the end of this week. - Do not continue using the drops after 7 days unless directed by your eye doctor. - You have a follow-up appointment with your eye doctor on the . If your symptoms worsen or return after completing the drops, contact your eye doctor to see if you can be seen sooner. Follow-up: - Your next appointment with me is scheduled for July. Please contact the office sooner if your sleep issues persist or if you have any other concerns. - Continue monitoring your symptoms and let us know if there are any changes. documented in this encounter [facility] 04-29-2025 Note HNO ID: [id number] Author: ROWENA SARABIA APRN.SHANAE Service: ? Author Type: Nurse Practitioner Type: Progress Notes Filed: 04/29/2025 09:03 Note Text: CC: Patient presents with: Follow Up: seen in urgent care on Monday for insomnia x 1 week- restless HPI Recording using ambient [employer] software for draft documentation of the visit was discussed with the patient/authorized training representative; all questions welcomed and answered. Patient/authorized training representative agreed to proceed Lela Guerrier is a 75-year-old male with a history of neuropathy, RA, and anemia, presenting with acute onset of insomnia. Lela reports difficulty sleeping for the past week, beginning on Monday. He describes being unable to fall asleep on some nights and only getting about an hour of sleep on others. He feels restless and unable to get comfortable in bed, often getting up after just 5 minutes. He denies any new stressors or changes in his life that could be contributing to the insomnia. He also denies feeling anxious or experiencing pain that could be interfering with his sleep. He notes that the insomnia started the day after his last visit to the clinic. Last , Lela called the clinic and was given some advice by a nurse, which seemed to help temporarily, but the insomnia returned. On Monday, he went to urgent care and was prescribed hydroxyzine, which he has been taking three times a day as instructed. He reports that the medication has helped him sleep for about 5 hours last night, but he is still not getting his usual 7-8 hours of sleep. He denies napping during the day and continues to go to bed around 2100. He also reports worsening neuropathy and RA, with increased sensitivity to cold air on his hands and seems to be affecting his appetite. Lela is currently taking iron supplements for anemia and has been using antibiotic eye drops for an eye infection since Monday. He has an appointment with an eye doctor on the . Review of Systems See HPI PAST MEDICAL HISTORY Diagnosis Date AAA (abdominal aortic aneurysm) 05/06/2013 Bladder cancer (HCC) 08/29/2016 Bladder tumor BPH without urinary obstruction 08/04/2015 Cervicalgia 11/03/2008 CHRONIC AIRWAY OBSTRUCTION NEC 01/12/2009 Colon cancer (HCC) 07/19/2013 s/p laparoscopic with conversion to open low anterior resection of the colon with abscess and appendectomy and completed chemo 2013 Hydronephrosis 2023 HYPERTENSION NOS 12/01/2008 Hypertrophy of prostate without urinary obstruction and other lower urinary tract symptoms (LUTS) 12/01/2008 Malignant neoplasm of overlapping sites of bladder (HCC) Pain in limb 06/14/2005 PERIPH VASCULAR DIS NOS 06/21/2005 s/p bilateral common iliac artery [place] stenting. s/p angioplasty of instent PAD stent 2013 PURE HYPERCHOLESTEROLEM 06/21/2005 Rheumatoid arthritis(714.0) 03/04/2010 hands Small bowel obstruction due to adhesions (HCC) 04/18/2024 Tobacco use disorder 06/14/2005 PAST SURGICAL HISTORY Procedure Laterality Date ANGIOPLASTY FEMORAL/POP Bilateral 07/03/2019 multiple stents (4) ANGIOPLASTY-ILIAC Bilateral 06/21/2021 R exteranl iliac angioplasty/stent. L common iliac, external iliac angioplasty COLECTOMY PRTL W/COLOPROCTOSTOMY 07/25/2013 COLONOSCOPY 07/04/2017 recheck in 3 years, Dr. Tyson COLONOSCOPY FLX DX W/COLLJ SPEC WHEN PFRMD 07/12/2013 Colonoscopy COLONOSCOPY FLX DX W/COLLJ SPEC WHEN PFRMD 07/11/2014 repeat in 3 years COLONOSCOPY STOMA W/BIOPSY SINGLE/MULTIPLE 12/29/2023 ESOPHAGOGASTRODUODENOSCOPY TRANSORAL DIAGNOSTIC 07/12/2013 EGD INSJ TUNNELED CTR VAD W/SUBQ PORT AGE 5 YR/> 08/28/2013 RIGHT LAP CYSTECTOMY COMPLETE WITH CONDUIT 09/08/2016 LAP ENTEROTOMY, SM BOWEL; EXPLORE, BX 04/30/2024 Adhesiolysis. TPN. [facility]. LAPAROSCOPIC APPENDECTOMY 07/25/2013 LAPAROSCOPIC RADICAL PROSTATECTOMY 08/29/2016 Cysto-prostatectomy, Ileal conduit, pelvic LN dissection PROCTOSGMDSC RGD DX W/WO COLLJ SPEC BR/WA SPX 07/19/2013 RADICAL PROSTATECTOMY 2016 REVASCULARIZATION ILIAC ARTERY ANGIOP 1ST VSL 09/12/2011 RMVL CASPER CTR VAD W/SUBQ PORT/SKIDWAY WORKER CTR/PRPH INSJ 09/03/2014 Removal right IJ port TRANSLUMINAL ANGIOPLASTY - ILIAC 01/15/2004 bilateral stents TRANSLUMINAL ANGIOPLASTY - ILIAC 04/14/2014 bilateral. ALLERGIES Bactrim [Sulfamethoxazole-Trimethoprim] MEDICATIONS ofloxacin (OCUFLOX) 0.3 % ophthalmic solution Use 1 drop in the right eye four times daily for 7 days. acetaminophen-codeine (TYLENOL-COD #4) 300-60 mg per tablet Take 1 tablet by mouth every 4 hours as needed (30 day supply w/ 2 refills.) for up to 90 days. predniSONE (DELTASONE) 10 mg tablet Take 1 tablet by mouth once daily as needed (joint swelling). clopidogrel (PLAVIX) 75 mg tablet Take 1 tablet by mouth once daily. Next refill should be from vascular surgeon amLODIPine (NORVASC) 10 mg tablet Take 1 tablet by mouth once daily. atorvastatin (LIPITOR) 20 mg tablet (more content not included)... [facility] 04-29-2025 History of Present illness Narrative CC: Patient presents with: Follow Up: seen in urgent care on Monday for insomnia x 1 week- restless HPI Recording using [employer] software for draft documentation of the visit was discussed with the patient/authorized training representative; all questions welcomed and answered. Patient/authorized training representative agreed to proceed Lela Guerrier is a 75-year-old male with a history of neuropathy, RA, and anemia, presenting with acute onset of insomnia. Lela reports difficulty sleeping for the past week, beginning on Monday. He describes being unable to fall asleep on some nights and only getting about an hour of sleep on others. He feels restless and unable to get comfortable in bed, often getting up after just 5 minutes. He denies any new stressors or changes in his life that could be contributing to the insomnia. He also denies feeling anxious or experiencing pain that could be interfering with his sleep. He notes that the insomnia started the day after his last visit to the clinic. Last , Lela called the clinic and was given some advice by a nurse, which seemed to help temporarily, but the insomnia returned. On Monday, he went to urgent care and was prescribed hydroxyzine, which he has been taking three times a day as instructed. He reports that the medication has helped him sleep for about 5 hours last night, but he is still not getting his usual 7-8 hours of sleep. He denies napping during the day and continues to go to bed around 2100. He also reports worsening neuropathy and RA, with increased sensitivity to cold air on his hands and seems to be affecting his appetite. Lela is currently taking iron supplements for anemia and has been using antibiotic eye drops for an eye infection since Monday. He has an appointment with an eye doctor on the . Review of Systems See HPI PAST MEDICAL HISTORY Diagnosis Date AAA (abdominal aortic aneurysm) 05/06/2013 Bladder cancer (HCC) 08/29/2016 Bladder tumor BPH without urinary obstruction 08/04/2015 Cervicalgia 11/03/2008 CHRONIC AIRWAY OBSTRUCTION NEC 01/12/2009 Colon cancer (HCC) 07/19/2013 s/p laparoscopic with conversion to open low anterior resection of the colon with abscess and appendectomy and completed chemo 2013 Hydronephrosis 2023 HYPERTENSION NOS 12/01/2008 Hypertrophy of prostate without urinary obstruction and other lower urinary tract symptoms (LUTS) 12/01/2008 Malignant neoplasm of overlapping sites of bladder (HCC) Pain in limb 06/14/2005 PERIPH VASCULAR DIS NOS 06/21/2005 s/p bilateral common iliac artery [place] stenting. s/p angioplasty of instent PAD stent 2013 PURE HYPERCHOLESTEROLEM 06/21/2005 Rheumatoid arthritis(714.0) 03/04/2010 hands Small bowel obstruction due to adhesions (HCC) 04/18/2024 Tobacco use disorder 06/14/2005 PAST SURGICAL HISTORY Procedure Laterality Date ANGIOPLASTY FEMORAL/POP Bilateral 07/03/2019 multiple stents (4) ANGIOPLASTY-ILIAC Bilateral 06/21/2021 R exteranl iliac angioplasty/stent. L common iliac, external iliac angioplasty COLECTOMY PRTL W/COLOPROCTOSTOMY 07/25/2013 COLONOSCOPY 07/04/2017 recheck in 3 years, Dr. Tyson COLONOSCOPY FLX DX W/COLLJ SPEC WHEN PFRMD 07/12/2013 Colonoscopy COLONOSCOPY FLX DX W/COLLJ SPEC WHEN PFRMD 07/11/2014 repeat in 3 years COLONOSCOPY STOMA W/BIOPSY SINGLE/MULTIPLE 12/29/2023 ESOPHAGOGASTRODUODENOSCOPY TRANSORAL DIAGNOSTIC 07/12/2013 EGD INSJ TUNNELED CTR VAD W/SUBQ PORT AGE 5 YR/> 08/28/2013 RIGHT LAP CYSTECTOMY COMPLETE WITH CONDUIT 09/08/2016 LAP ENTEROTOMY, SM BOWEL; EXPLORE, BX 04/30/2024 Adhesiolysis. TPN. [facility]. LAPAROSCOPIC APPENDECTOMY 07/25/2013 LAPAROSCOPIC RADICAL PROSTATECTOMY 08/29/2016 Cysto-prostatectomy, Ileal conduit, pelvic LN dissection PROCTOSGMDSC RGD DX W/WO COLLJ SPEC BR/WA SPX 07/19/2013 RADICAL PROSTATECTOMY 2016 REVASCULARIZATION ILIAC ARTERY ANGIOP 1ST VSL 09/12/2011 RMVL [place] CTR VAD W/SUBQ PORT/SKIDWAY WORKER CTR/PRPH INSJ 09/03/2014 Removal right IJ port TRANSLUMINAL ANGIOPLASTY - ILIAC 01/15/2004 bilateral stents TRANSLUMINAL ANGIOPLASTY - ILIAC 04/14/2014 bilateral. ALLERGIES Bactrim [Sulfamethoxazole-Trimethoprim] MEDICATIONS ofloxacin (OCUFLOX) 0.3 % ophthalmic solution Use 1 drop in the right eye four times daily for 7 days. acetaminophen-codeine (TYLENOL-COD #4) 300-60 mg per tablet Take 1 tablet by mouth every 4 hours as needed (30 day supply w/ 2 refills.) for up to 90 days. predniSONE (DELTASONE) 10 mg tablet Take 1 tablet by mouth once daily as needed (joint swelling). clopidogrel (PLAVIX) 75 mg tablet Take 1 tablet by mouth once daily. Next refill should be from vascular surgeon amLODIPine (NORVASC) 10 mg tablet Take 1 tablet by mouth once daily. atorvastatin (LIPITOR) 20 mg tablet Take 1 tablet by mouth once daily. lisinopril (ZESTRIL) 20 mg tablet Take 1 tablet by mouth once daily. ibuprofen (MOTRIN) 800 mg tablet Take 1 tablet by mouth three times a day as needed for pain. gabapentin (NEURONTIN) 600 mg tablet Take 1 tablet by mouth three times a day. albuterol HFA (VENTOLIN HFA) 90 mcg/actuation inhaler Inhale 2 Puffs as instructed every 4 hours as needed for wheezing/shortness of breath. Menthol-Zinc Oxide (CALMOSEPTINE) 0.44-20.6 % Apply to affected area once daily as needed. hydrOXYzine HCl (ATARAX) 25 mg tablet Take 1-2 tablets by mouth at bedtime as needed (insomnia). ferrous sulfate 325 mg (65 mg iron) tablet Take 1 tablet by mouth once daily. FAMILY HISTORY Problem Relation Age of Onset Stroke Father Ischemic Heart Disease Mother Heart Maternal Grandmother Heart Brother Social History Tobacco Use Smoking status: Every Day Current packs/day: 0.50 Average packs/day: 0.5 packs/day for 55.0 years (27.5 ttl pk-yrs) Types: Cigarettes Start date: 1970 Smokeless tobacco: Never Vaping Use Vaping status: Never Used Substance Use Topics Alcohol use: Yes Comment: occasional beer Drug use: No BP 116/60 (BP Site: Left Arm, BP Position: Sitting, BP Cuff Size: Regular Adult) Pulse 116 Temp 36.9 C (98.4 F) (Temporal) Resp 14 Ht 170.2 cm (5' 7) Wt 52.6 kg (115 lb 15.4 oz) SpO2 96% BMI 18.16 kg/m Physical Exam Vitals reviewed. Constitutional: Appearance: Normal appearance. Neurological: Mental Status: He is alert. Psychiatric: Attention and Perception: Attention normal. Mood and Affect: Mood and affect normal. Speech: Speech normal. Behavior: Behavior normal. Thought Content: Thought content normal. Judgment: Judgment normal. DATA REVIEWED: Most recent labs Assessment/Plan 1. Other insomnia (G47.09) Onset approximately one week ago, characterized by difficulty initiating and maintaining sleep. Previously achieving 7-8 hours of sleep per night, now reduced to 1-5 hours. No identified changes in life circumstances, anxiety, or pain contributing to restlessness. Currently taking hydroxyzine, which has provided some improvement in sleep duration. - Advised to take hydroxyzine 2 tablets at bedtime only, rather than during the day. - Monitor sleep patterns and report if insomnia persists. - Consider referral to a sleep specialist if symptoms do not improve. 2. Acute conjunctivitis of right eye, unspecified acute conjunctivitis type (H10.31) Currently using antibiotic eye drops, prescribed for 7 days. - Continue antibiotic eye drops 4 times a day for the remaining 7-day course. - Scheduled follow-up with eye doctor on the . - Advised to contact eye doctor if symptoms worsen or persist after completing the course. 3. Iron deficiency anemia, unspecified iron deficiency anemia type (D50.9) Recent lab results show improvement in iron levels, nearing normal. Blood counts are stable, but anemia persists; likely due to chronic disease. - Continue [id number] iron supplements for an additional 30 days. - No immediate need for further blood work; re-evaluation in 6 months unless symptoms worsen. Prescription instructions reviewed with patient as applicable. Potential red flag symptoms discussed with the patient. Reviewed appropriate action plan to take if red flag symptoms occur. Patient agreeable to treatment plan. Rowena Sarabia APRN.MAINSTREAMING FACILITATOR documented in this encounter [facility] 04-27-2025 Note HNO ID: [id number] Author: CHUN KIRK PA-C Service: ? Author Type: Physician Circle Edger Type: Progress Notes Filed: 04/27/2025 14:03 Note Text: This note was created using [employer]. Subjective Lela Guerrier is a 75 year old male. Patient is a 75-year-old male who complains of worsening insomnia that he has been experiencing for the past 1 week. Patient states that he is only able to obtain approximately 1 hour of sleep per night. Patient reports increased agitation and restlessness due to lack of sleep. Patient does have a history of bladder cancer, prostate cancer as well as rheumatoid arthritis and is on multiple medications for same to include gabapentin. Patient states he has not previously developed significant sleep issues. Patient denies fever, chills, congestion, cough or other illness symptoms. Patient also describes increased redness to the lateral aspect of his right eye that he has noted developing over the past 2 days. Patient reports mild swelling and redness to the lateral aspect of his eyelids. Patient has noted no bleeding, serous or purulent fluid and states that his vision is intact and unchanged. Patient denies pain, injury or foreign body to his right eye. Patient does not wear contact lenses. Review of Systems Constitutional: Positive for fatigue. Insomnia Eyes: Positive for discharge, redness and itching. Negative for photophobia, pain and visual disturbance. All other systems reviewed and are negative. Objective BP 120/70 Pulse 112 Temp 36.8 ?C (98.3 ?F) Resp 18 Wt 53.5 kg (117 lb 15.1 oz) SpO2 98% BMI 18.08 kg/m? Physical Exam Vitals and nursing note reviewed. Constitutional: Appearance: Normal appearance. He is normal weight. HENT: Head: Normocephalic and atraumatic. Right Ear: Tympanic membrane, ear canal and external ear normal. Left Ear: Tympanic membrane, ear canal and external ear normal. Nose: Nose normal. Mouth/Throat: Mouth: Mucous membranes are moist. Pharynx: Oropharynx is clear. Eyes: General: Right eye: No discharge. Left eye: No discharge. Extraocular Movements: Extraocular movements intact. Pupils: Pupils are equal, round, and reactive to light. Cardiovascular: Rate and Rhythm: Normal rate and regular rhythm. Pulses: Normal pulses. Heart sounds: Normal heart sounds. Pulmonary: Effort: Pulmonary effort is normal. Breath sounds: Normal breath sounds. Musculoskeletal: Cervical back: Normal range of motion and neck supple. Skin: General: Skin is warm and dry. Capillary Refill: Capillary refill takes less than 2 seconds. Neurological: General: No focal deficit present. Mental Status: He is alert and oriented to person, place, and time. Psychiatric: Mood and Affect: Mood normal. Behavior: Behavior normal. Thought Content: Thought content normal. Judgment: Judgment normal. Assessment and Plan Physical exam findings as noted above. Patient was provided with prescriptions for hydroxyzine 25 mg (insomnia) and ofloxacin 0.3% ophthalmic solution (acute conjunctivitis). Patient was strongly advised to schedule an appointment to see his primary care physician if he experiences no improvement in sleep with the hydroxyzine. CLINICAL IMPRESSION: Insomnia--New Onset; Acute Conjunctivitis Right Eye ASSESSMENT/PLAN: 1. Other insomnia - ICD9: 780.52, ICD10: G47.09 (primary diagnosis) - HYDROXYZINE HCL 25 MG TABLET 2. Acute conjunctivitis of right eye, unspecified acute conjunctivitis type - ICD9: 372.00, ICD10: H10.31 - OFLOXACIN 0.3 % EYE DROPS MDM Risk of Complications, Morbidity, and/or Mortality Presenting problems: low Diagnostic procedures: low Management options: olga Kirk PA-C [facility] 04-27-2025 History of Present illness Narrative This note was created using [employer]. Subjective Lela Quintero Guerrier is a 75 year old male. Patient is a 75-year-old male who complains of worsening insomnia that he has been experiencing for the past 1 week. Patient states that he is only able to obtain approximately 1 hour of sleep per night. Patient reports increased agitation and restlessness due to lack of sleep. Patient does have a history of bladder cancer, prostate cancer as well as rheumatoid arthritis and is on multiple medications for same to include gabapentin. Patient states he has not previously developed significant sleep issues. Patient denies fever, chills, congestion, cough or other illness symptoms. Patient also describes increased redness to the lateral aspect of his right eye that he has noted developing over the past 2 days. Patient reports mild swelling and redness to the lateral aspect of his eyelids. Patient has noted no bleeding, serous or purulent fluid and states that his vision is intact and unchanged. Patient denies pain, injury or foreign body to his right eye. Patient does not wear contact lenses. Review of Systems Constitutional: Positive for fatigue. Insomnia Eyes: Positive for discharge, redness and itching. Negative for photophobia, pain and visual disturbance. All other systems reviewed and are negative. Objective BP 120/70 Pulse 112 Temp 36.8 C (98.3 F) Resp 18 Wt 53.5 kg (117 lb 15.1 oz) SpO2 98% BMI 18.08 kg/m Physical Exam Vitals and nursing note reviewed. Constitutional: Appearance: Normal appearance. He is normal weight. HENT: Head: Normocephalic and atraumatic. Right Ear: Tympanic membrane, ear canal and external ear normal. Left Ear: Tympanic membrane, ear canal and external ear normal. Nose: Nose normal. Mouth/Throat: Mouth: Mucous membranes are moist. Pharynx: Oropharynx is clear. Eyes: General: Right eye: No discharge. Left eye: No discharge. Extraocular Movements: Extraocular movements intact. Pupils: Pupils are equal, round, and reactive to light. Cardiovascular: Rate and Rhythm: Normal rate and regular rhythm. Pulses: Normal pulses. Heart sounds: Normal heart sounds. Pulmonary: Effort: Pulmonary effort is normal. Breath sounds: Normal breath sounds. Musculoskeletal: Cervical back: Normal range of motion and neck supple. Skin: General: Skin is warm and dry. Capillary Refill: Capillary refill takes less than 2 seconds. Neurological: General: No focal deficit present. Mental Status: He is alert and oriented to person, place, and time. Psychiatric: Mood and Affect: Mood normal. Behavior: Behavior normal. Thought Content: Thought content normal. Judgment: Judgment normal. Assessment and Plan Physical exam findings as noted above. Patient was provided with prescriptions for hydroxyzine 25 mg (insomnia) and ofloxacin 0.3% ophthalmic solution (acute conjunctivitis). Patient was strongly advised to schedule an appointment to see his primary care physician if he experiences no improvement in sleep with the hydroxyzine. CLINICAL IMPRESSION: Insomnia--New Onset; Acute Conjunctivitis Right Eye ASSESSMENT/PLAN: 1. Other insomnia - ICD9: 780.52, ICD10: G47.09 (primary diagnosis) - HYDROXYZINE HCL 25 MG TABLET 2. Acute conjunctivitis of right eye, unspecified acute conjunctivitis type - ICD9: 372.00, ICD10: H10.31 - OFLOXACIN 0.3 % EYE DROPS MDM Risk of Complications, Morbidity, and/or Mortality Presenting problems: low Diagnostic procedures: low Management options: olga Kirk PA-C documented in this encounter [facility] 04-24-2025 Telephone encounter Note Pt reports he hasn't slept well for 5 days. Only sleeps an hour at a time. The most sleep he gets daily is 2 hours. States his hands hurt d/t rheumatoid but that only contributes to the insomnia. Pt reports he feels hot/cold off and on but doesn't think he has a fever. No appetite. No resp s/s. Protocol recommends see provider in 3 days. Pt states he needs something to help him sleep today. Scheduled same day appt. Reason for Disposition MODERATE - SEVERE insomnia (e.g., interferes with work or school) Answer Assessment - Initial Assessment Questions 1. DESCRIPTION: Pt reports he has only been able to sleep an hour or less at a time daily for the last 5 days. Sometimes he can go back to sleep but only for an hour. Has not taken his prednisone at all in the last 5 days. Reports he's been taking lorena seltzer plus nighttime to help him sleep but he doesn't have cold symptoms. Pain in hands contribute to keeping him awake. No body aches. No respiratory symptoms. 2. ONSET: 5 days 3. RECURRENT This is the first time he's had a sleeping problem 4. STRESS: No stress 5. PAIN: Having pain in his hands from rheumatoid. Does keep him a wake. Is not having swelling so hasn't taken his prednisone. 6. CAFFEINE ABUSE: Drinks coffee but not at bedtime. 7. ALCOHOL USE OR SUBSTANCE USE (DRUG USE): Seldom drinks alchol. 8. OTHER SYMPTOMS: No appetite- does force himself to eat- yesterday had breakfast sandwich, and butter beans, and bread. Feels hot/cold sometimes. Hands ache but no swelling. Protocols used: [id number] [facility] 04-24-2025 Miscellaneous Notes Pt reports he hasn't slept well for 5 days. Only sleeps an hour at a time. The most sleep he gets daily is 2 hours. States his hands hurt d/t rheumatoid but that only contributes to the insomnia. Pt reports he feels hot/cold off and on but doesn't think he has a fever. No appetite. No resp s/s. Protocol recommends see provider in 3 days. Pt states he needs something to help him sleep today. Scheduled same day appt. Reason for Disposition MODERATE - SEVERE insomnia (e.g., interferes with work or school) Answer Assessment - Initial Assessment Questions 1. DESCRIPTION: Pt reports he has only been able to sleep an hour or less at a time daily for the last 5 days. Sometimes he can go back to sleep but only for an hour. Has not taken his prednisone at all in the last 5 days. Reports he's been taking lorena seltzer plus nighttime to help him sleep but he doesn't have cold symptoms. Pain in hands contribute to keeping him awake. No body aches. No respiratory symptoms. 2. ONSET: 5 days 3. RECURRENT This is the first time he's had a sleeping problem 4. STRESS: No stress 5. PAIN: Having pain in his hands from rheumatoid. Does keep him a wake. Is not having swelling so hasn't taken his prednisone. 6. CAFFEINE ABUSE: Drinks coffee but not at bedtime. 7. ALCOHOL USE OR SUBSTANCE USE (DRUG USE): Seldom drinks alchol. 8. OTHER SYMPTOMS: No appetite- does force himself to eat- yesterday had breakfast sandwich, and butter beans, and bread. Feels hot/cold sometimes. Hands ache but no swelling. Protocols used: [id number] documented in this encounter [facility] 04-18-2025 Note HNO ID: [id number] Author: ROWENA SARABIA APRN.MAINSTREAMING FACILITATOR Service: ? Author Type: Nurse Practitioner Type: Progress Notes Filed: 04/18/2025 08:37 Note Text: CC: Patient presents with: Follow Up: 3 months controlled medication HPI Recording using [employer] software for draft documentation of the visit was discussed with the patient/authorized training representative; all questions welcomed and answered. Patient/authorized training representative agreed to proceed Lela Guerrier is a 75-year-old male with a history of chronic pain, presenting for a follow-up on pain medication and Plavix refill. Lela is currently taking Tylenol with codeine, approximately 5-6 pills per day, for chronic pain, including neck pain. Medication is effective at controlling pain and does not interfere with sleep, ADL's or quality of life. Denies side effects. He requests a refill for this medication. He also requests a refill for Plavix, which he has been taking for PVD and stents by Dr. Tyson who has retired. He has not seen vascular in a couple years. Additionally, Lela is taking iron supplements and prednisone. He was advised to restart his iron supplement daily two months ago and to have his blood counts rechecked after two months. He has approximately five iron pills left and inquires if he should continue taking them. Review of Systems See HPI PAST MEDICAL HISTORY Diagnosis Date AAA (abdominal aortic aneurysm) 05/06/2013 Bladder cancer (HCC) 08/29/2016 Bladder tumor BPH without urinary obstruction 08/04/2015 Cervicalgia 11/03/2008 CHRONIC AIRWAY OBSTRUCTION NEC 01/12/2009 Colon cancer (HCC) 07/19/2013 s/p laparoscopic with conversion to open low anterior resection of the colon with abscess and appendectomy and completed chemo 2013 Hydronephrosis 2023 HYPERTENSION NOS 12/01/2008 Hypertrophy of prostate without urinary obstruction and other lower urinary tract symptoms (LUTS) 12/01/2008 Malignant neoplasm of overlapping sites of bladder (HCC) Pain in limb 06/14/2005 PERIPH VASCULAR DIS NOS 06/21/2005 s/p bilateral common iliac artery [place] stenting. s/p angioplasty of instent PAD stent 2013 PURE HYPERCHOLESTEROLEM 06/21/2005 Rheumatoid arthritis(714.0) 03/04/2010 hands Small bowel obstruction due to adhesions (HCC) 04/18/2024 Tobacco use disorder 06/14/2005 PAST SURGICAL HISTORY Procedure Laterality Date ANGIOPLASTY FEMORAL/POP Bilateral 07/03/2019 multiple stents (4) ANGIOPLASTY-ILIAC Bilateral 06/21/2021 R exteranl iliac angioplasty/stent. L common iliac, external iliac angioplasty COLECTOMY PRTL W/COLOPROCTOSTOMY 07/25/2013 COLONOSCOPY 07/04/2017 recheck in 3 years, Dr. Tyson COLONOSCOPY FLX DX W/COLLJ SPEC WHEN PFRMD 07/12/2013 Colonoscopy COLONOSCOPY FLX DX W/COLLJ SPEC WHEN PFRMD 07/11/2014 repeat in 3 years COLONOSCOPY STOMA W/BIOPSY SINGLE/MULTIPLE 12/29/2023 ESOPHAGOGASTRODUODENOSCOPY TRANSORAL DIAGNOSTIC 07/12/2013 EGD INSJ TUNNELED CTR VAD W/SUBQ PORT AGE 5 YR/> 08/28/2013 RIGHT LAP CYSTECTOMY COMPLETE WITH CONDUIT 09/08/2016 LAP ENTEROTOMY, SM BOWEL; EXPLORE, BX 04/30/2024 Adhesiolysis. TPN. [facility]. LAPAROSCOPIC APPENDECTOMY 07/25/2013 LAPAROSCOPIC RADICAL PROSTATECTOMY 08/29/2016 Cysto-prostatectomy, Ileal conduit, pelvic LN dissection PROCTOSGMDSC RGD DX W/WO COLLJ SPEC BR/WA SPX 07/19/2013 RADICAL PROSTATECTOMY 2016 REVASCULARIZATION ILIAC ARTERY ANGIOP 1ST VSL 09/12/2011 RMVL [place] CTR VAD W/SUBQ PORT/SKIDWAY WORKER CTR/PRPH INSJ 09/03/2014 Removal right IJ port [...] mouth once daily as needed (joint swelling). clopidogrel (PLAVIX) 75 mg tablet Take 1 tablet by mouth once daily. Next refill should be from vascular surgeon ferrous sulfate 325 mg (65 mg iron) tablet Take 1 tablet by mouth once daily. amLODIPine (NORVASC) 10 mg tablet Take 1 tablet by mouth once daily. atorvastatin (LIPITOR) 20 mg tablet Take 1 tablet by mouth once daily. lisinopril (ZESTRIL) 20 mg tablet Take 1 tablet by mouth once daily. ibuprofen (MOTRIN) 800 mg tablet Take 1 tablet by mouth three times a day as needed for pain. gabapentin (NEURONTIN) 600 mg tablet Take 1 tablet by mouth three times a day. albuterol HFA (VENTOLIN HFA) 90 mcg/actuation inhaler Inhale 2 Puffs as instructed every 4 hours as needed for wheezing/shortness of breath. Menthol-Zinc Oxide (CALMOSEPTINE) 0.44-20.6 % Apply to affected area once daily as needed. FAMILY HISTORY Problem Relation Age of Onset Stroke Father Ischemic Heart Disease Mother Heart Maternal Grandmother Heart Brother Social Histor (more content not included)... [facility] 04-18-2025 History of Present illness Narrative CC: Patient presents with: Follow Up: 3 months controlled medication HPI Recording using [employer] software for draft documentation of the visit was discussed with the patient/authorized training representative; all questions welcomed and answered. Patient/authorized training representative agreed to proceed Lela Guerrier is a 75-year-old male with a history of chronic pain, presenting for a follow-up on pain medication and Plavix refill. Lela is currently taking Tylenol with codeine, approximately 5-6 pills per day, for chronic pain, including neck pain. Medication is effective at controlling pain and does not interfere with sleep, ADL's or quality of life. Denies side effects. He requests a refill for this medication. He also requests a refill for Plavix, which he has been taking for PVD and stents by Dr. Tyson who has retired. He has not seen vascular in a couple years. Additionally, Lela is taking iron supplements and prednisone. He was advised to restart his iron supplement daily two months ago and to have his blood counts rechecked after two months. He has approximately five iron pills left and inquires if he should continue taking them. Review of Systems See HPI PAST MEDICAL HISTORY Diagnosis Date AAA (abdominal aortic aneurysm) 05/06/2013 Bladder cancer (HCC) 08/29/2016 Bladder tumor BPH without urinary obstruction 08/04/2015 Cervicalgia 11/03/2008 CHRONIC AIRWAY OBSTRUCTION NEC 01/12/2009 Colon cancer (HCC) 07/19/2013 s/p laparoscopic with conversion to open low anterior resection of the colon with abscess and appendectomy and completed chemo 2013 Hydronephrosis 2023 HYPERTENSION NOS 12/01/2008 Hypertrophy of prostate without urinary obstruction and other lower urinary tract symptoms (LUTS) 12/01/2008 Malignant neoplasm of overlapping sites of bladder (HCC) Pain in limb 06/14/2005 PERIPH VASCULAR DIS NOS 06/21/2005 s/p bilateral common iliac artery [place] stenting. s/p angioplasty of instent PAD stent 2013 PURE HYPERCHOLESTEROLEM 06/21/2005 Rheumatoid arthritis(714.0) 03/04/2010 hands Small bowel obstruction due to adhesions (HCC) 04/18/2024 Tobacco use disorder 06/14/2005 PAST SURGICAL HISTORY Procedure Laterality Date ANGIOPLASTY FEMORAL/POP Bilateral 07/03/2019 multiple stents (4) ANGIOPLASTY-ILIAC Bilateral 06/21/2021 R exteranl iliac angioplasty/stent. L common iliac, external iliac angioplasty COLECTOMY PRTL W/COLOPROCTOSTOMY 07/25/2013 COLONOSCOPY 07/04/2017 recheck in 3 years, Dr. Tyson COLONOSCOPY FLX DX W/COLLJ SPEC WHEN PFRMD 07/12/2013 Colonoscopy COLONOSCOPY FLX DX W/COLLJ SPEC WHEN PFRMD 07/11/2014 repeat in 3 years COLONOSCOPY STOMA W/BIOPSY SINGLE/MULTIPLE 12/29/2023 ESOPHAGOGASTRODUODENOSCOPY TRANSORAL DIAGNOSTIC 07/12/2013 EGD INSJ TUNNELED CTR VAD W/SUBQ PORT AGE 5 YR/> 08/28/2013 RIGHT LAP CYSTECTOMY COMPLETE WITH CONDUIT 09/08/2016 LAP ENTEROTOMY, SM BOWEL; EXPLORE, BX 04/30/2024 Adhesiolysis. TPN. [facility]. LAPAROSCOPIC APPENDECTOMY 07/25/2013 LAPAROSCOPIC RADICAL PROSTATECTOMY 08/29/2016 Cysto-prostatectomy, Ileal conduit, pelvic LN dissection PROCTOSGMDSC RGD DX W/WO COLLJ SPEC BR/WA SPX 07/19/2013 RADICAL PROSTATECTOMY 2016 REVASCULARIZATION ILIAC ARTERY ANGIOP 1ST VSL 09/12/2011 RMVL [place] CTR VAD W/SUBQ PORT/SKIDWAY WORKER CTR/PRPH INSJ 09/03/2014 Removal right IJ port [...] mouth once daily as needed (joint swelling). clopidogrel (PLAVIX) 75 mg tablet Take 1 tablet by mouth once daily. Next refill should be from vascular surgeon ferrous sulfate 325 mg (65 mg iron) tablet Take 1 tablet by mouth once daily. amLODIPine (NORVASC) 10 mg tablet Take 1 tablet by mouth once daily. atorvastatin (LIPITOR) 20 mg tablet Take 1 tablet by mouth once daily. lisinopril (ZESTRIL) 20 mg tablet Take 1 tablet by mouth once daily. ibuprofen (MOTRIN) 800 mg tablet Take 1 tablet by mouth three times a day as needed for pain. gabapentin (NEURONTIN) 600 mg tablet Take 1 tablet by mouth three times a day. albuterol HFA (VENTOLIN HFA) 90 mcg/actuation inhaler Inhale 2 Puffs as instructed every 4 hours as needed for wheezing/shortness of breath. Menthol-Zinc Oxide (CALMOSEPTINE) 0.44-20.6 % Apply to affected area once daily as needed. FAMILY HISTORY Problem Relation Age of Onset Stroke Father Ischemic Heart Disease Mother Heart Maternal Grandmother Heart Brother Social History Tobacco Use Smoking status: Every Day Current packs/day: 0.50 Average packs/day: 0.5 packs/day for 55.0 years (27.5 ttl pk-yrs) Types: Cigarettes Start date: 1970 Smokeless tobacco: Never Vaping Use Vaping status: Never Used Substance Use Topics Alcohol use: Yes Comment: occasional beer Drug use: No BP 102/62 Pulse 66 Resp 14 Wt 54.6 kg (120 lb 5.9 oz) SpO2 94% BMI 18.46 kg/m Physical Exam Vitals reviewed. Constitutional: Appearance: Normal appearance. Cardiovascular: Rate and Rhythm: Regular rhythm. Pulmonary: Effort: Pulmonary effort is normal. Breath sounds: Normal breath sounds. Skin: General: Skin is warm and dry. Psychiatric: Mood and Affect: Mood normal. Assessment/Plan 1. Cervicalgia (M54.2) - Prescribed Morphine Equivalent Daily Dose (MEDD): [...] accidental overdose, addiction and abuse with patient PDMP website checked and validated. All prescriptions have been APPROPRIATELY filled. No suspicious activity was identified. 04/18/2025 by Rowena Sarabia APRN.CNP 2. Peripheral vascular disease, unspecified (I73.9) Managed with Plavix. Last seen by vascular specialist Dr. Tyson who has since retired. - Refill Plavix temporarily until patient can be seen by a vascular specialist. - Referral to vascular specialist Dr. Coronel at [facility]. - Patient advised to schedule an appointment with the new vascular doctor. 3. Iron deficiency anemia, unspecified iron deficiency anemia type (D50.9) Currently taking iron supplements. Blood counts due for recheck this month. - Ordered blood count recheck. - Patient advised to have blood work done today. Prescription instructions reviewed with patient as applicable. Potential red flag symptoms discussed with the patient. Reviewed appropriate action plan to take if red flag symptoms occur. Patient agreeable to treatment plan. Rowena Sarabia APRN.MAINSTREAMING FACILITATOR documented in this encounter [facility] 04-18-2025 Instructions Rowena Sarabia APRN.SHANAE - 04/18/2025 8:25 AM EDT We discussed your medications: - I have sent refills for Plavix, Tylenol with Codeine, and Prednisone to your preferred pharmacy, [facility]. - Plavix: I have provided a 3-month supply to cover you until you can see a vascular specialist. This medication should be managed by a vascular doctor moving forward. - Tylenol with Codeine: Continue taking 5-6 pills daily as needed for chronic neck pain. - Prednisone: Continue as prescribed. We discussed your vascular care: - You need to establish care with a vascular specialist for ongoing management of your vascular health and Plavix prescription. Since you were previously seeing Dr. Rajput, you do not need a referral. - Please call [facility] to schedule an appointment with the vascular doctor who replaced Dr. Tyson. You can let them know you were previously under Dr. Tyson s care and need to schedule a follow-up or refill. - The vascular specialist may want to see you before refilling your prescription, so please schedule this as soon as possible. We discussed your blood counts and iron supplementation: - You were instructed to restart your iron supplement daily two months ago, and it is now time to recheck your blood counts. - Please complete your bloodwork today to assess your iron levels. This does not require fasting. - Based on the results, we will decide whether you should continue the iron supplement for the remaining month or stop it. We discussed your next appointment: - Your next appointment is scheduled with Dr. Damon on July 24. There is no need to schedule a separate 3-month follow-up, as this appointment will cover your ongoing care. - If you run out of medication before this appointment, please contact us via [employer] or leave a message, and we will assist you. Please let us know if you have any questions or concerns. documented in this encounter [facility] 01-15-2025 Telephone encounter Note Pt called and is notified of providers message and instructions. Pt voices understanding. Mala Cortes RN [facility] 01-15-2025 Miscellaneous Notes Pt called and is notified of providers message and instructions. Pt voices understanding. Mala Cortes RN Please make patient aware of the change Rowena Sarabia APRN.CNP Pharmacist Dalia calling from [facility] regarding pt's prescription for gabapentin 300 mg-take 2 capsules three times a day. Pharmacist asking if provider would be agreeable to changing the script to use 600 mg dosage instead, as they do not have enough 300 mg tabs to fill script at this time. Script has been pended. If agreeable, please send new script, or call pharmacy to discuss. [phone]. Lary Milan RN documented in this encounter [facility] 01-15-2025 Telephone encounter Note Please make patient aware of the change Rowena Sarabia APRN.CNP [facility] 01-15-2025 Telephone encounter Note Pharmacist Dalia calling from [facility] regarding pt's prescription for gabapentin 300 mg-take 2 capsules three times a day. Pharmacist asking if provider would be agreeable to changing the script to use 600 mg dosage instead, as they do not have enough 300 mg tabs to fill script at this time. Script has been pended. If agreeable, please send new script, or call pharmacy to discuss. [phone]. Lary Milan RN [facility] 01-15-2025 Note HNO ID: [id number] Author: ROWENA SARABIA APRN.CNP Service: ? Author Type: Nurse Practitioner Type: Progress Notes Filed: 01/15/2025 09:17 Note Text: CC: Patient presents with: Follow Up HPI Lela Guerrier is a 74 year old male who presents today for three month routine follow-up. The patient consented to the use of [employer] software for draft documentation of the visit consistent with [facility]?s Notice of Privacy Practices. Lela is a 74-year-old male with a history of anemia, chronic neck pain, neuropathy, and smoking, presenting for a routine 3-month follow-up and medication refills. Anemia: Lela reports no dizziness, lightheadedness, melena, or hematochezia. Bowel movements are normal, though he occasionally feels they are not as regular as he would like. He denies constipation or abdominal pain. He had a colonoscopy in December of last year, which was unremarkable except for the removal of polyps. Vascular disease: He is currently under the care of a vascular specialist and is taking Plavix. He recently had stents and his aorta checked, as well as a carotid ultrasound, which showed slight worsening on one side compared to the previous year. He is scheduled for a follow-up in 6 months. He is also on a cholesterol-lowering medication. Chronic pain: Lela experiences chronic neck pain, for which he takes Tylenol with codeine 4-5 times daily, depending on the weather. He reports that this medication effectively manages his pain without causing side effects such as constipation, fatigue, or lightheadedness. 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 He notes that the neuropathy has slightly improved but still requires him to visually confirm his foot movements when walking. He can tell if he is late or misses a dose of gabapentin. He also takes ibuprofen as needed, averaging a couple of times a day, particularly when the weather affects his symptoms. HTN: He monitors his blood pressure at home, usually once a day or every couple of days, with readings typically in the 120-140/66 range. He denies any side effects from his antihypertensive medication, such as dizziness, lightheadedness, or peripheral edema. He denies chest pain, decreased exercise tolerance or palpitations. Chronic bronchitis: Lela reports dyspnea on exertion, which he attributes to limited outdoor activity due to weather conditions. He smokes approximately half a pack of cigarettes per day and denies frequent coughing, nocturnal cough, or dyspnea. He uses an albuterol inhaler as needed, which has decreased from 2-3 times daily to a couple of times a week. He has an ileal conduit and reports no issues with it. He recently had a smooth transition of his ostomy supplies after an insurance change. Review of Systems See HPI PAST MEDICAL HISTORY Diagnosis Date AAA (abdominal aortic aneurysm) (HCC) 05/06/2013 Bladder cancer ([facility]) 08/29/2016 Bladder tumor BPH without urinary obstruction 08/04/2015 Cervicalgia 11/03/2008 CHRONIC AIRWAY OBSTRUCTION NEC 01/12/2009 Colon cancer ([facility]) 07/19/2013 s/p laparoscopic with conversion to open low anterior resection of the colon with abscess and appendectomy and completed chemo 2013 Hydronephrosis 2023 HYPERTENSION NOS 12/01/2008 Hypertrophy of prostate without urinary obstruction and other lower urinary tract symptoms (LUTS) 12/01/2008 Malignant neoplasm of overlapping sites of bladder (HCC) Pain in limb 06/14/2005 PERIPH VASCULAR DIS NOS 06/21/2005 s/p bilateral common iliac artery [place] stenting. s/p angioplasty of instent PAD stent 2013 PURE HYPERCHOLESTEROLEM 06/21/2005 Rheumatoid arthritis(714.0) 03/04/2010 hands Small bowel obstruction due to adhesions (HCC) 04/18/2024 Tobacco use disorder 06/14/2005 PAST SURGICAL HISTORY Procedure Laterality Date ANGIOPLASTY FEMORAL/POP Bilateral 07/03/2019 multiple stents (4) ANGIOPLASTY-ILIAC Bilateral 06/21/2021 R exteranl iliac angioplasty/stent. L common iliac, external iliac angioplasty COLECTOMY PRTL W/COLOPROCTOSTOMY 07/25/2013 COLONOSCOPY 07/04/2017 recheck in 3 years, Dr. Tyson COLONOSCOPY FLX DX W/COLLJ SPEC WHEN PFRMD 07/12/2013 Colonoscopy COLONOSCOPY FLX DX W/COLLJ SPEC WHEN PFRMD 07/11/2014 repeat in 3 years COLONOSCOPY STOMA W/BIOPSY SINGLE/MULTIPLE 12/29/2023 ESOPHAGOGASTRODUODENOSCOPY TRANSORAL DIAGNOSTIC 07/12/2013 EGD INSJ TUNNELED CTR VAD W/SUBQ PORT AGE 5 YR/> 08/28/2013 RIGHT LAP CYSTECTOMY COMPLETE WITH CONDUIT 09/08/2016 LAP ENTEROTOMY, SM BOWEL; EXPLORE, BX 04/30/2024 Adhesiolysis. TPN. [facility]. LAPAROSCOPIC APPENDECTOMY 07/25/2013 LAPAROSCOPIC RADICAL PROSTATECTOMY 08/29/2016 Cysto-prostatectomy, Ileal conduit, pelvic LN dissection PROCTOSGMDSC RGD DX W/WO COLLJ SPEC BR/WA SPX 07/19/2013 RADICAL PROSTATECTOMY 2016 REVASCULARIZATION ILIAC ARTERY ANGIOP 1ST VSL 09/12/2011 RMVL T (more content not included)... [facility] 01-15-2025 History of Present illness Narrative CC: Patient presents with: Follow Up HPI Lela Quintero Guerrier is a 74 year old male who presents today for three month routine follow-up. The patient consented to the use of [employer] software for draft documentation of the visit consistent with [facility] s Notice of Privacy Practices. Lela is a 74-year-old male with a history of anemia, chronic neck pain, neuropathy, and smoking, presenting for a routine 3-month follow-up and medication refills. Anemia: Lela reports no dizziness, lightheadedness, melena, or hematochezia. Bowel movements are normal, though he occasionally feels they are not as regular as he would like. He denies constipation or abdominal pain. He had a colonoscopy in December of last year, which was unremarkable except for the removal of polyps. Vascular disease: He is currently under the care of a vascular specialist and is taking Plavix. He recently had stents and his aorta checked, as well as a carotid ultrasound, which showed slight worsening on one side compared to the previous year. He is scheduled for a follow-up in 6 months. He is also on a cholesterol-lowering medication. Chronic pain: Lela experiences chronic neck pain, for which he takes Tylenol with codeine 4-5 times daily, depending on the weather. He reports that this medication effectively manages his pain without causing side effects such as constipation, fatigue, or lightheadedness. 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 He notes that the neuropathy has slightly improved but still requires him to visually confirm his foot movements when walking. He can tell if he is late or misses a dose of gabapentin. He also takes ibuprofen as needed, averaging a couple of times a day, particularly when the weather affects his symptoms. HTN: He monitors his blood pressure at home, usually once a day or every couple of days, with readings typically in the 120-140/66 range. He denies any side effects from his antihypertensive medication, such as dizziness, lightheadedness, or peripheral edema. He denies chest pain, decreased exercise tolerance or palpitations. Chronic bronchitis: Lela reports dyspnea on exertion, which he attributes to limited outdoor activity due to weather conditions. He smokes approximately half a pack of cigarettes per day and denies frequent coughing, nocturnal cough, or dyspnea. He uses an albuterol inhaler as needed, which has decreased from 2-3 times daily to a couple of times a week. He has an ileal conduit and reports no issues with it. He recently had a smooth transition of his ostomy supplies after an insurance change. Review of Systems See HPI PAST MEDICAL HISTORY Diagnosis Date AAA (abdominal aortic aneurysm) (HCC) 05/06/2013 Bladder cancer (HCC) 08/29/2016 Bladder tumor BPH without urinary obstruction 08/04/2015 Cervicalgia 11/03/2008 CHRONIC AIRWAY OBSTRUCTION NEC 01/12/2009 Colon cancer (HCC) 07/19/2013 s/p laparoscopic with conversion to open low anterior resection of the colon with abscess and appendectomy and completed chemo 2013 Hydronephrosis 2023 HYPERTENSION NOS 12/01/2008 Hypertrophy of prostate without urinary obstruction and other lower urinary tract symptoms (LUTS) 12/01/2008 Malignant neoplasm of overlapping sites of bladder (HCC) Pain in limb 06/14/2005 PERIPH VASCULAR DIS NOS 06/21/2005 s/p bilateral common iliac artery [place] stenting. s/p angioplasty of instent PAD stent 2013 PURE HYPERCHOLESTEROLEM 06/21/2005 Rheumatoid arthritis(714.0) 03/04/2010 hands Small bowel obstruction due to adhesions (HCC) 04/18/2024 Tobacco use disorder 06/14/2005 PAST SURGICAL HISTORY Procedure Laterality Date ANGIOPLASTY FEMORAL/POP Bilateral 07/03/2019 multiple stents (4) ANGIOPLASTY-ILIAC Bilateral 06/21/2021 R exteranl iliac angioplasty/stent. L common iliac, external iliac angioplasty COLECTOMY PRTL W/COLOPROCTOSTOMY 07/25/2013 COLONOSCOPY 07/04/2017 recheck in 3 years, Dr. Tyson COLONOSCOPY FLX DX W/COLLJ SPEC WHEN PFRMD 07/12/2013 Colonoscopy COLONOSCOPY FLX DX W/COLLJ SPEC WHEN PFRMD 07/11/2014 repeat in 3 years COLONOSCOPY STOMA W/BIOPSY SINGLE/MULTIPLE 12/29/2023 ESOPHAGOGASTRODUODENOSCOPY TRANSORAL DIAGNOSTIC 07/12/2013 EGD INSJ TUNNELED CTR VAD W/SUBQ PORT AGE 5 YR/> 08/28/2013 RIGHT LAP CYSTECTOMY COMPLETE WITH CONDUIT 09/08/2016 LAP ENTEROTOMY, SM BOWEL; EXPLORE, BX 04/30/2024 Adhesiolysis. TPN. [facility]. LAPAROSCOPIC APPENDECTOMY 07/25/2013 LAPAROSCOPIC RADICAL PROSTATECTOMY 08/29/2016 Cysto-prostatectomy, Ileal conduit, pelvic LN dissection PROCTOSGMDSC RGD DX W/WO COLLJ SPEC BR/WA SPX 07/19/2013 RADICAL PROSTATECTOMY 2016 REVASCULARIZATION ILIAC ARTERY ANGIOP 1ST VSL 09/12/2011 RMVL [place] CTR VAD W/SUBQ PORT/SKIDWAY WORKER CTR/PRPH INSJ 09/03/2014 Removal right IJ port TRANSLUMINAL ANGIOPLASTY - ILIAC 01/15/2004 bilateral stents TRANSLUMINAL ANGIOPLASTY - ILIAC 04/14/2014 bilateral. ALLERGIES Bactrim [Sulfamethoxazole-Trimethoprim] MEDICATIONS albuterol HFA (VENTOLIN HFA) 90 mcg/actuation inhaler Inhale 2 Puffs as instructed every 4 hours as needed for wheezing/shortness of breath. Menthol-Zinc Oxide (CALMOSEPTINE) 0.44-20.6 % Apply to affected area once daily as needed. clopidogrel (PLAVIX) 75 mg tablet Take 1 tablet by mouth once daily. Post stents. acetaminophen-codeine (TYLENOL-COD #4) 300-60 mg per tablet Take 1 tablet by mouth every 4 hours as needed (30 day supply w/ 2 refills.) for up to 90 days. amLODIPine (NORVASC) 10 mg tablet Take 1 tablet by mouth once daily. atorvastatin (LIPITOR) 20 mg tablet Take 1 tablet by mouth once daily. gabapentin (NEURONTIN) 300 mg capsule Take 2 capsules by mouth three times a day. lisinopril (ZESTRIL) 20 mg tablet Take 1 tablet by mouth once daily. ibuprofen (MOTRIN) 800 mg tablet Take 1 tablet by mouth three times a day as needed for pain. predniSONE (DELTASONE) 10 mg tablet Take 1 tablet by mouth once daily as needed (joint swelling). ferrous sulfate 325 mg (65 mg iron) tablet Take 1 tablet by mouth once daily. FAMILY HISTORY Problem Relation Age of Onset Stroke Father Ischemic Heart Disease Mother Heart Maternal Grandmother Heart Brother Social History Tobacco Use Smoking status: Every Day Current packs/day: 0.50 Average packs/day: 0.5 packs/day for 54.8 years (27.4 ttl pk-yrs) Types: Cigarettes Start date: 1970 Smokeless tobacco: Never Vaping Use Vaping status: Never Used Substance Use Topics Alcohol use: Yes Comment: occasional beer Drug use: No BP 118/78 Pulse 78 Resp 14 Wt 55.5 kg (122 lb 5.7 oz) SpO2 91% BMI 18.76 kg/m Physical Exam Vitals reviewed. Constitutional: Appearance: Normal appearance. Cardiovascular: Rate and Rhythm: Normal rate and regular rhythm. Heart sounds: Normal heart sounds. No murmur heard. Pulmonary: Effort: Pulmonary effort is normal. Breath sounds: Wheezing (diffusely) present. No rhonchi or rales. Skin: General: Skin is warm and dry. Coloration: Skin is not pale. Neurological: Mental Status: He is alert. Health maintenance reviewed with patient: RSV Vaccine(1 - 1-dose 75+ series) due on 2025 Serum Creatinine due on 05/24/2025 Depression Screening due on 10/22/2025 Anxiety Screening due on 10/22/2025 Hemoglobin/Hematocrit due on 12/13/2025 Annual PCP Team Chronic Disease Visit due on 01/15/2026 BP Controlled (<130/80) due on 01/15/2026 Diabetes Screening due on 05/24/2027 Colorectal Cancer Screening due on 12/28/2028 DTaP,Tdap,Td Vaccine(2 - Td or Tdap) due on 04/04/2029 Lipid Screening due on 10/22/2029 Abdominal Aortic Aneurysm Screening Completed Influenza Vaccine Completed Advance Directive Discussion Completed Hepatitis C Screening Completed Pneumococcal Vaccine: 50+ Completed Lung Cancer Screening Discontinued Shingrix Vaccine Discontinued Covid-19 Vaccine Discontinued DATA REVIEWED: Most recent labs and vascular studies at [facility] Latest Ref Rng 12/13/2024 WBC 3.70 - 11.00 k/uL 9.67 RBC 4.20 - 6.00 m/uL 4.18 (L) Hemoglobin 13.0 - 17.0 g/dL 11.7 (L) Hematocrit 39.0 - 51.0 % 37.5 (L) MCV 80.0 - 100.0 fL 89.7 MCH 26.0 - 34.0 pg 28.0 MCHC 30.5 - 36.0 g/dL 31.2 RDW-CV 11.5 - 15.0 % 15.2 (H) Platelet Count 150 - 400 k/uL 427 (H) MPV 9.0 - 12.7 fL 8.7 (L) Absolute nRBC <0.01 k/uL <0.01 Iron 41 - 186 ug/dL 50 TIBC 232 - 386 ug/dL 190 (L) Transferrin Saturation 15.0 - 57.0 % 26.3 Ferritin 30.3 - 565.7 ng/mL 127.0 Legend: (L) Low (H) High Assessment/Plan 1. Cervicalgia (M54.2) Chronic neck pain managed with Tylenol with codeine, taken 4-5 times daily. Pain is well-controlled with current medication regimen. - Prescribed Morphine Equivalent Daily Dose (MEDD): 0 - Controlled substance agreement up to date. - Urine tox screen/pain panel reviewed, no aberrancies Continue present regimen, refilled Tylenol with codeine prescription. - Course of treatment, patient's response and adherence to the prescribed treatment plan reviewed, including non-pharmacological and non-opioid treatment modalities. Rationale for continuing opioid treatment: improved pain and function. Benefits of opioid therapy outweigh the risks. - Reviewed opioid side effects, required monitoring, controlled substance agreement, risks including accidental overdose, addiction and abuse with patient PDMP website checked and validated. All prescriptions have been APPROPRIATELY filled. No suspicious activity was identified. 01/15/2025 by Rowena Sarabia APRN.MAINSTREAMING FACILITATOR 2. Essential hypertension (I10) Blood pressure well-controlled with current medication regimen. No reported side effects such as dizziness, lightheadedness, or peripheral edema. - Continue current antihypertensive therapy. - Monitor blood pressure at home. 3. Pure hypercholesterolemia (E78.00) Patient is adherent to cholesterol-lowering medication. - Continue current lipid-lowering therapy. 4. 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 Patient has adequate supply of ostomy materials. - Monitor for any issues with the ileal conduit. - Schedule follow-up in 3 months. 5. Chronic bronchitis, unspecified chronic bronchitis type (HCC) (J42) Patient exhibits mild wheezing on auscultation. Utilizes albuterol inhaler as needed, currently about twice a week. Reports dyspnea on exertion but no nocturnal cough or dyspnea. - Continue albuterol inhaler as needed. - Recheck oxygen saturation. 6. Stage 3a chronic kidney disease (HCC) (N18.31) CKD Stage 3a, stable - Advised to minimize use of NSAIDs. 7. 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 Managed with gabapentin, which is effective in controlling neuropathic pain. - Continue gabapentin as prescribed. 8. Anemia, unspecified type (D64.9) Suspect due to CKD. Recent lab work shows slight improvement in iron levels, though still low. No symptoms of dizziness or melena - Ordered repeat CBC and iron studies to assess current status. - Will determine need for continued iron supplementation based on results. 9. Tobacco use disorder (F17.200) Patient smokes approximately half a pack of cigarettes per day. - Discussed risks associated with smoking and encouraged cessation. No desire to quit at this time 10. Abdominal aortic aneurysm (AAA) without rupture, unspecified part (HCC) (I71.40) Under surveillance by vascular specialist. - Continue regular follow-up with vascular specialist. 11. Peripheral arterial disease (HCC) (I73.9) Managed with Plavix as prescribed by vascular specialist. - Continue Plavix therapy. 12. Bilateral carotid artery stenosis (I65.23) Recent imaging shows progression of stenosis. Under regular monitoring by vascular specialist, with next evaluation scheduled in 6 months. - Continue follow-up with vascular specialist. Prescription instructions reviewed with patient as applicable. Potential red flag symptoms discussed with the patient. Reviewed appropriate action plan to take if red flag symptoms occur. Patient agreeable to treatment plan. Rowena Sarabia APRN.CNP Medical Decision Making: Problems: Moderate: 2+ stable chronic illnesses Data: Unique test result(s) reviewed: 2 Unique test(s) ordered: 1 Risk: Low: Low risk from testing/treatment Moderate: Drug management Medical Decision Making Level: 4 - Moderate documented in this encounter [facility] 01-15-2025 Instructions Rowena Sarabia APRN.CNP - 01/15/2025 8:44 AM EDT We discussed your routine 3-month follow-up and reviewed your current health concerns and medications: - Iron levels and anemia: - Your iron levels are still slightly low but have improved since your last visit. - I ordered blood work today to recheck your iron levels now that you are off the iron pill. We will contact you with the results. If your levels have dropped, you may need to resume the iron supplement. - Oxygen levels and respiratory health: - Your oxygen level today was 91%, and you reported occasional shortness of breath but no significant coughing or nighttime symptoms. - You are using your albuterol inhaler only as needed, about twice a week. You do not need a refill at this time. I noted mild wheezing during the exam but no significant concerns. - Ibuprofen use: - You take ibuprofen occasionally for pain, averaging twice daily depending on the weather. Be cautious with frequent use, as it can affect your kidneys. Use it only when necessary. - Smoking: - You continue to smoke about half a pack per day. Reducing or quitting smoking would benefit your overall health, especially your respiratory and vascular health. Follow-up plan: - We will contact you with the results of your blood work. - Schedule your next routine follow-up in 3 months. At that visit, we may collect a urine sample. - Let us know if you experience any new or worsening symptoms or need assistance with prescriptions or supplies. documented in this encounter [facility] 12-09-2024 Telephone encounter Note This is was signed 11/29/24 and fax on 11/30/24. Pt notified. [facility] 12-09-2024 Miscellaneous Notes This is was signed 11/29/24 and fax on 11/30/24. Pt notified. Checking status if this is completed. Becky Cruz LPN Rec'd and to pcp to review. Pt calling to let you know [facility] [employer] will be faxing an order for pt's ostomy supplies. This will need to be signed and faxed back. Please watch for this. Pt thought tomorrow or next week. [facility] [phone] Becky Cruz LPN documented in this encounter [facility] 12-06-2024 Telephone encounter Note Checking status if this is completed. Becky Cruz LPN [facility] 11-29-2024 Telephone encounter Note Rec'd and to pcp to review. [facility] 11-28-2024 Telephone encounter Note Pt calling to let you know [facility] [employer] will be faxing an order for pt's ostomy supplies. This will need to be signed and faxed back. Please watch for this. Pt thought tomorrow or next week. [facility] [phone] Becky Cruz LPN [facility] 10-28-2024 Telephone encounter Note Patient was notified Brenna Mills MA [facility] 10-28-2024 Miscellaneous Notes Patient was notified Brenna Mills MA Patient was notified and will do iron supplement would like to know how much daily? Asked if its over the counter or prescription? If sending rx please have it sent to [facility] pended for recheck Brenna Mills MA ----- Message from Rowena Sarabia APRN.CNP sent at 10/28/2024 7:26 AM EST ----- Please let the patient know he is still iron deficient but improving. Recommend one month of ferrous sulfate daily and then recheck Rowena Sarabia APRN.MAINSTREAMING FACILITATOR documented in this encounter [facility] 10-28-2024 Telephone encounter Note Patient was notified and will do iron supplement would like to know how much daily? Asked if its over the counter or prescription? If sending rx please have it sent to [facility] pended for recheck Brenna Mills MA [facility] 10-28-2024 Telephone encounter Note ----- Message from Rowena Sarabia APRN.SHANAE sent at 10/28/2024 7:26 AM EST ----- Please let the patient know he is still iron deficient but improving. Recommend one month of ferrous sulfate daily and then recheck Rowena Sarabia APRN.MAINSTREAMING FACILITATOR [facility] 10-22-2024 Instructions Arnie hCiang MD - 10/22/2024 9:11 AM EST FASTING BLOOD WORK TODAY OR SOON. Screening schedule The following prevention plan is recommended: Depression Screening Never done Anxiety Screening Never done Shingrix Vaccine(1 of 2) Never done Advance Directive Discussion due on 10/23/2023 WHAT YOU CAN DO TO PREVENT FALLS [...] review all the medicines you take, even [id number] medicines. As you get older, the way [...] certain medical conditions. documented in this encounter [facility] 10-22-2024 Note HNO ID: [id number] Author: ARNIE CHIANG MD Service: ? Author Type: Physician Type: Progress Notes Filed: 10/22/2024 22:44 Note Text: This note was created using Virtwayriter. Subjective Lela Guerrier is a 74 year old male here with spouse. Adapted from CDC guidelines: Opioids can provide short term benefits for moderate to severe pain. Scientific evidence is lacking for benefits to treat chronic pain. Chronic cervicalgia. Before prescribing or adjusting dose 1. Assess PAIN AND FUNCTION with validated pain scale. (PEG scale where 30% improvement from baseline is clinically significant) Q1: What number from 0-10 best describes your PAIN in the past week? (0=no pain, 10=worst you can imagine) Answer: 7 Q2: What number from 0-10 best describes how, during the past week, pain has interfered with your ENJOYMENT OF LIFE? (0=not at all, 10=complete interference) Answer: 5 Q3: What number from 0-10 best describes how, during the past week, pain has interfered with your GENERAL ACTIVITY? (0=not at all, 10=complete interference) Answer: 6 Total score=18 Previous score=15 2. Consider if NON OPIOID therapies are appropriate. (NSAIDs, TCAs, SNRI, anti-convulsants, exercise or physical therapy, cognitive behavioral therapy) Yes. 3. Talk about the TREATMENT PLAN. - Annual OPIOID AGREEMENT current. No. - Realistic goals for pain and function [...] - OARRS checked. Yes - UDS ordered. Yes Last reported dose: today. - Medication interactions checked. Yes. - Concern for OPIOID USE DISORDER, aberrant behavior. No. He also complained of a sore in the tailbone for 6 weeks. was applying diaper ointment with partial improvement. He sits a lot and his recliner had a worn cushion. Review of Systems Constitutional: Negative for fatigue, fever and unexpected weight change. HENT: Negative for congestion. Respiratory: Negative for cough and shortness of breath. Cardiovascular: Negative for chest pain, palpitations and leg swelling. Gastrointestinal: Negative for abdominal distention, abdominal pain, constipation, diarrhea and nausea. Genitourinary: Negative for difficulty urinating. Neurological: Negative for dizziness and headaches. ACTIVE PROBLEM LIST Tobacco Use Disorder Pure Hypercholesterolemia Peripheral Vascular Disease, Unspecified (Hcc) Cervicalgia Essential Hypertension Chronic Bronchitis (Hcc) Aaa (Abdominal Aortic Aneurysm) (Hcc) History of Colon Cancer Vitamin D Deficiency Peripheral Polyneuropathy History of Bladder Cancer Gastroesophageal Reflux Disease History of Total Cystectomy Hydronephrosis of Right Kidney Stage 3a Chronic Kidney Disease (Hcc) S/P Laparotomy With Lysis of Adhesions Small Bowel Obstruction Due to Adhesions (Hcc) Anemia Social History Tobacco Use Smoking status: Every Day Current packs/day: 0.50 Average packs/day: 0.5 packs/day for 54.5 years (27.3 ttl pk-yrs) Types: Cigarettes Start date: 1970 Smokeless tobacco: Never Vaping Use Vaping status: Never Used Substance Use Topics Alcohol use: Yes Comment: occasional beer Drug use: No Current Outpatient Medications Medication Sig acetaminophen-codeine (TYLENOL-COD #4) 300-60 mg per tablet Take 1 tablet by mouth every 4 hours as needed (30 day supply w/ 2 refills.) for up to 90 days. albuterol HFA (VENTOLIN HFA) 90 mcg/actuation inhaler Inhale 2 Puffs as instructed every 4 hours as needed for wheezing/shortness of breath. amLODIPine (NORVASC) 10 mg tablet Take 1 tablet by mouth once daily. atorvastatin (LIPITOR) 20 mg tablet Take 1 tablet by mouth once daily. ibuprofen (MOTRIN) 800 mg tablet Take 1 tablet by mouth three times a day as needed for pain. lisinopril (ZESTRIL) 20 mg tablet Take 1 tablet by mouth once daily. gabapentin (NEURONTIN) 300 mg capsule Take 2 capsules by mouth three times a day. predniSONE (DELTASONE) 10 mg tablet Take 1 tablet by mouth once daily as needed (joint swelling). ondansetron (ZOFRAN) 8 mg tablet Take 1 tablet by mouth every 8 hours as needed for nausea/vomiting. clopidogrel (PLAVIX) 75 mg tablet Take 1 tablet by mouth once daily. Post stents. No current facility-administered medications for this visit. Objective BP 124/64 (BP Site: Left Arm, BP Position: Sitting, BP Cuff Size: Regular Adult) Pulse 92 Temp 36.2 ?C (97.1 ?F) (Temporal) Resp 20 Wt 56.3 kg (124 lb 1.9 oz) BMI 19.03 kg/m? Physical Exam Constitutional: General: He is not in acute distress. HENT: Head: Normocephalic. Nose: No congestion or rhinorrhea. Cardio (more content not included)... [facility] 10-22-2024 History of Present illness Narrative Images from the original note were not included. This note was created using [employer]way[employer]. Subjective Lela Guerrier is a 74 year old male here with spouse. Adapted from CDC guidelines: Opioids can provide short term benefits for moderate to severe pain. Scientific evidence is lacking for benefits to treat chronic pain. Chronic cervicalgia. Before prescribing or adjusting dose 1. Assess PAIN & FUNCTION with validated pain scale. (PEG scale where 30% improvement from baseline is clinically significant) Q1: What number from 0-10 best describes your PAIN in the past week? (0=no pain, 10=worst you can imagine) Answer: 7 Q2: What number from 0-10 best describes how, during the past week, pain has interfered with your ENJOYMENT OF LIFE? (0=not at all, 10=complete interference) Answer: 5 Q3: What number from 0-10 best describes how, during the past week, pain has interfered with your GENERAL ACTIVITY? (0=not at all, 10=complete interference) Answer: 6 Total score=18 Previous score=15 2. Consider if NON OPIOID therapies are appropriate. (NSAIDs, TCAs, SNRI, anti-convulsants, exercise or physical therapy, cognitive behavioral therapy) Yes. 3. Talk about the TREATMENT PLAN. - Annual OPIOID AGREEMENT current. No. - Realistic goals for pain and function [...] - OARRS checked. Yes - UDS ordered. Yes Last reported dose: today. - Medication interactions checked. Yes. - Concern for OPIOID USE DISORDER, aberrant behavior. No. He also complained of a sore in the tailbone for 6 weeks. was applying diaper ointment with partial improvement. He sits a lot and his recliner had a worn cushion. Review of Systems Constitutional: Negative for fatigue, fever and unexpected weight change. HENT: Negative for congestion. Respiratory: Negative for cough and shortness of breath. Cardiovascular: Negative for chest pain, palpitations and leg swelling. Gastrointestinal: Negative for abdominal distention, abdominal pain, constipation, diarrhea and nausea. Genitourinary: Negative for difficulty urinating. Neurological: Negative for dizziness and headaches. ACTIVE PROBLEM LIST Tobacco Use Disorder Pure Hypercholesterolemia Peripheral Vascular Disease, Unspecified (Hcc) Cervicalgia Essential Hypertension Chronic Bronchitis (Hcc) Aaa (Abdominal Aortic Aneurysm) ([facility]) History of Colon Cancer Vitamin D Deficiency Peripheral Polyneuropathy History of Bladder Cancer Gastroesophageal Reflux Disease History of Total Cystectomy Hydronephrosis of Right Kidney Stage 3a Chronic Kidney Disease (Hcc) S/P Laparotomy With Lysis of Adhesions Small Bowel Obstruction Due to Adhesions ([facility]) Anemia Social History Tobacco Use Smoking status: Every Day Current packs/day: 0.50 Average packs/day: 0.5 packs/day for 54.5 years (27.3 ttl pk-yrs) Types: Cigarettes Start date: 1970 Smokeless tobacco: Never Vaping Use Vaping status: Never Used Substance Use Topics Alcohol use: Yes Comment: occasional beer Drug use: No Current Outpatient Medications Medication Sig acetaminophen-codeine (TYLENOL-COD #4) 300-60 mg per tablet Take 1 tablet by mouth every 4 hours as needed (30 day supply w/ 2 refills.) for up to 90 days. albuterol HFA (VENTOLIN HFA) 90 mcg/actuation inhaler Inhale 2 Puffs as instructed every 4 hours as needed for wheezing/shortness of breath. amLODIPine (NORVASC) 10 mg tablet Take 1 tablet by mouth once daily. atorvastatin (LIPITOR) 20 mg tablet Take 1 tablet by mouth once daily. ibuprofen (MOTRIN) 800 mg tablet Take 1 tablet by mouth three times a day as needed for pain. lisinopril (ZESTRIL) 20 mg tablet Take 1 tablet by mouth once daily. gabapentin (NEURONTIN) 300 mg capsule Take 2 capsules by mouth three times a day. predniSONE (DELTASONE) 10 mg tablet Take 1 tablet by mouth once daily as needed (joint swelling). ondansetron (ZOFRAN) 8 mg tablet Take 1 tablet by mouth every 8 hours as needed for nausea/vomiting. clopidogrel (PLAVIX) 75 mg tablet Take 1 tablet by mouth once daily. Post stents. No current facility-administered medications for this visit. Objective BP 124/64 (BP Site: Left Arm, BP Position: Sitting, BP Cuff Size: Regular Adult) Pulse 92 Temp 36.2 C (97.1 F) (Temporal) Resp 20 Wt 56.3 kg (124 lb 1.9 oz) BMI 19.03 kg/m Physical Exam Constitutional: General: He is not in acute distress. HENT: Head: Normocephalic. Nose: No congestion or rhinorrhea. Cardiovascular: Rate and Rhythm: Normal rate and regular rhythm. Heart sounds: No murmur heard. No gallop. Pulmonary: Effort: No respiratory distress. Breath sounds: Decreased breath sounds present. No wheezing or rales. Abdominal: General: Bowel sounds are normal. There is no distension. Palpations: Abdomen is soft. Tenderness: There is no abdominal tenderness. Comments: Healed midline incision. Ileal conduit right lower quadrant with clear urine in bag. Musculoskeletal: Cervical back: Decreased range of motion. Right lower leg: No edema. Left lower leg: No edema. Skin: Comments: Small crusted wound just to the left of the prominent coccyx. Surrounding skin with postinflammatory pigmentation and sclerosis. No abscess, no drainage, no signs of infection. Neurological: General: No focal deficit present. Mental Status: He is alert. Labs to be done. Assessment and Plan 1. Medicare annual wellness visit, subsequent - ICD9: V70.0, ICD10: Z00.00 (primary diagnosis) - See wellness note. 2. Pure hypercholesterolemia - ICD9: 272.0, ICD10: E78.00 Control TBD. - ATORVASTATIN 20 MG TABLET 3. Cervicalgia - ICD9: 723.1, ICD10: M54.2 Controlled, opioid dependent. Continue current management. - GABAPENTIN 300 MG CAPSULE - IBUPROFEN 800 MG TABLET - PREDNISONE 10 MG TABLET 4. Essential hypertension - ICD9: 401.9, ICD10: I10 - Controlled - Continue current medications - AMLODIPINE 10 MG TABLET - LISINOPRIL 20 MG TABLET 5. Chronic bronchitis, unspecified chronic bronchitis type (HCC) - ICD9: 491.9, ICD10: J42 Stable. - ALBUTEROL SULFATE HFA 90 MCG/ACTUATION AEROSOL INHALER 6. Encounter for medication monitoring - ICD9: V58.83, ICD10: Z51.81 - TOXICOLOGY SCREEN, ROUTINE URINE 7. Screening for depression - ICD9: V79.0, ICD10: Z13.31 - DEPRESSION SCREENING 8. Encounter for screening examination for other mental health and behavioral disorders - ICD9: V79.8, ICD10: Z13.39 - ANXIETY SCREENING 9. Decubitus ulcer of sacral region, stage 1 - ICD9: 707.03, 707.21, ICD10: L89.151 - Decubiti prevention discussed in detail. - - MENTHOL 0.44 %-ZINC OXIDE 20.6 % TOPICAL OINTMENT 10. Anemia, unspecified type - ICD9: 285.9, ICD10: D64.9 - Recheck. 11. S/P laparotomy with lysis of adhesions - ICD9: V45.89, ICD10: Z98.890 - No surgical follow up needed. Arnie Chiang MD WELLNESS VISIT Lela Guerrier is a 74 year old male here for a Medicare wellness visit. Medicare Health Risk Assessment General Health Good Exercise: Minutes/Day 0 min Exercise: Days/Week 0 days Alcohol: Daily Use Monthly or less Alcohol: Drinks/Day 1 or 2 Alcohol: 6 or more drinks Never Feel off balance No Concerns: Teeth/Dentures No Concerns: Sexual function No [...] Current care team: Patient Care Team: Arnie Chiang MD as PCP - General Rowena Sarabia, HYDRO STATION SUPERVISOR.MAINSTREAMING FACILITATOR as Library Technical Assistant (Internal Medicine) Adrián Yarbrough MD Urology. Outside specialists seen: Dr. Geo Clinton, Vascular Surgery. Dr. Rob Baig, ophthalmology. Dr. Leonidas Hunter, [facility]. Medical/Family history review Reviewed and updated problem list, medical/surgical/family/social history, medications, and allergies. Opioid use review Opioid Medications (last 90 days) 09/28/2024 23:59 10/01/2024 00:00 Opioid Medications acetaminophen with codeine 1 tablet q 4 H PRN 30 day supply w/ 2 refills. ORAL -Discontinued acetaminophen with codeine 1 tablet q 4 H PRN 30 day supply w/ 2 refills. ORAL Details Outpatient prescription Medication marked as long-term Prescribed acetaminophen with codeine (last 90 days) Does patient have risk factors for opioid abuse? No Pain overview Current pain concerns and treatment plan reviewed. Patient stable on current treatment plan. Anxiety/Depression screening PHQ-2 Score: 0 (Lower risk for depression) HELIO-2 Score: 0 (Lower risk for anxiety) Recommendation: no further intervention at this time Cognitive screening Cognitive screening reviewed and No further action needed (score 3-5). Functional Observation Was the patient's Timed Up & Go test unsteady or >= 12 seconds? No Advance Care Planning Patient was not able to provide a surrogate decision maker or written advance directives Measurements BP 124/64 (BP Site: Left Arm, BP Position: Sitting, BP Cuff Size: Regular Adult) Pulse 92 Temp 36.2 C (97.1 F) (Temporal) Resp 20 Wt 56.3 kg (124 lb 1.9 oz) BMI 19.03 kg/m Vision Screening: Follows with optometry/ophthalmology Assessment/Plan Medicare annual wellness visit, subsequent (Z00.00) - Counseled on healthy diet and regular exercise - Fall avoidance information provided - Personalized prevention plan provided - Smoking cessation encouraged; discussed risks to health and quitting strategies. Patient is not ready to quit documented in this encounter [facility] 09-30-2024 Telephone encounter Note Prescription Refill Information The patient has been identified by name and date of : Yes Caregiver verified no other encounters exist for this prescription request: Yes Caregiver confirmed with patient/requestor that no other refills are due, in the near future, with this provider at this time: Yes The last office visit in the department: 07/18/24 Does the patient have a future office visit with this provider/department: Yes 10/22/24 Requested Prescriptions Pending Prescriptions Disp Refills acetaminophen-codeine (TYLENOL-COD #4) 300-60 mg per tablet 150 tablet 2 Sig: Take 1 tablet by mouth every 4 hours as needed (30 day supply w/ 2 refills.) for up to 90 days. Bettye Alford LPN September 30, 2024 4:11 PM [facility] 09-30-2024 Miscellaneous Notes Prescription Refill Information The patient has been identified by name and date of : Yes Caregiver verified no other encounters exist for this prescription request: Yes Caregiver confirmed with patient/requestor that no other refills are due, in the near future, with this provider at this time: Yes The last office visit in the department: 07/18/24 Does the patient have a future office visit with this provider/department: Yes 10/22/24 Requested Prescriptions Pending Prescriptions Disp Refills acetaminophen-codeine (TYLENOL-COD #4) 300-60 mg per tablet 150 tablet 2 Sig: Take 1 tablet by mouth every 4 hours as needed (30 day supply w/ 2 refills.) for up to 90 days. Bettye Alford LPN September 30, 2024 4:11 PM documented in this encounter [facility] 07-25-2024 Telephone encounter Note Patient has been identified by name and date of : Yes Patient phones for refill(s): Requested Prescriptions Pending Prescriptions Disp Refills albuterol HFA (VENTOLIN HFA) 90 mcg/actuation inhaler 3 Each 0 Sig: Inhale 2 Puffs as instructed every 4 hours as needed for wheezing/shortness of breath. Date of last office visit in primary care: 07/18/2024 Date of next office visit in primary care: 10/22/2024 Please advise. Thank you. Laquita Merida LPN. [facility] 07-25-2024 Miscellaneous Notes Patient has been identified by name and date of : Yes Patient phones for refill(s): Requested Prescriptions Pending Prescriptions Disp Refills albuterol HFA (VENTOLIN HFA) 90 mcg/actuation inhaler 3 Each 0 Sig: Inhale 2 Puffs as instructed every 4 hours as needed for wheezing/shortness of breath. Date of last office visit in primary care: 07/18/2024 Date of next office visit in primary care: 10/22/2024 Please advise. Thank you. Laquita Merida LPN. documented in this encounter [facility] 07-18-2024 Instructions Rowena Sarabia APRN.SHANAE - 07/18/2024 8:40 AM EDT Gabapentin instructions: Take two capsules in the morning and afternoon and one capsule at night for two weeks. Then take two capsules in the morning, one in the afternoon and one at night for two weeks. Then take one capsule three times a day. If you experience any worsening pain let us know. Please call your vascular provider and let them know you are only taking the Plavix every other day. documented in this encounter [facility] 07-18-2024 Note HNO ID: [id number] Author: ROWENA SARABIA APRN.SHANAE Service: ? Author Type: Nurse Practitioner Type: Progress Notes Filed: 07/18/2024 09:06 Note Text: CC: Patient presents with: F/U 3 Month HPI Lela Guerrier is a 74 year old male who presents today for above. HTN-Medication changes:No Taking all medications as prescribed: Yes Side effects: No Home BP's: Yes 120's/70's Denies: headache, chest pain, palpitations, dyspnea, and peripheral edema. Last 3 Encounter BP Readings: Date: BP: 07/18/2024 123/70 05/24/2024 124/76 01/08/2024 123/68 PVD: prescribed Plavix by vascular doctor. Patient decreased dose to every other day due to excessive bruising. He has not discussed with vascular. Chronic bronchitis: denies frequent cough, wheezing or SOB. Uses albuterol infrequently as needed. Review of Systems See HPI PAST MEDICAL HISTORY Diagnosis Date AAA (abdominal aortic aneurysm) (HCC) 05/06/2013 Bladder cancer (HCC) 08/29/2016 Bladder tumor BPH without urinary obstruction 08/04/2015 Cervicalgia 11/03/2008 CHRONIC AIRWAY OBSTRUCTION NEC 01/12/2009 Colon cancer (HCC) 07/19/2013 s/p laparoscopic with conversion to open low anterior resection of the colon with abscess and appendectomy and completed chemo 2013 Hydronephrosis 2023 HYPERTENSION NOS 12/01/2008 Hypertrophy of prostate without [...] COLONOSCOPY 07/04/2017 recheck in 3 years, Dr. Tyson COLONOSCOPY FLX DX W/COLLJ SPEC WHEN PFRMD [...] DX W/WO COLLJ SPEC BR/WA SPX 07/19/2013 RADICAL PROSTATECTOMY 2016 REVASCULARIZATION ILIAC ARTERY ANGIOP 1ST VSL 09/12/2011 [facility] VAD W/SUBQ PORT/SKIDWAY WORKER CTR/PRPH INSJ 09/03/2014 Removal right IJ port TRANSLUMINAL ANGIOPLASTY - ILIAC 01/15/2004 bilateral stents TRANSLUMINAL ANGIOPLASTY - ILIAC 04/14/2014 bilateral. ALLERGIES Bactrim [Sulfamethoxazole-Trimethoprim] MEDICATIONS acetaminophen-codeine (TYLENOL-COD #4) 300-60 mg per tablet Take 1 tablet by mouth every 4 hours as needed (30 day supply w/ 2 refills.) for up to 90 days. albuterol HFA (VENTOLIN HFA) 90 mcg/actuation inhaler Inhale 2 Puffs as instructed every 4 hours as needed for wheezing/shortness of breath. predniSONE (DELTASONE) 10 mg tablet Take 1 tablet by mouth once daily as needed (joint swelling). lisinopril (ZESTRIL) 20 mg tablet Take 1 tablet by mouth once daily. atorvastatin (LIPITOR) 20 mg tablet Take 1 tablet by mouth once daily. amLODIPine (NORVASC) 10 mg tablet Take 1 tablet by mouth once daily. ibuprofen (MOTRIN) 800 mg tablet Take 1 tablet by mouth three times a day as needed for pain. gabapentin (NEURONTIN) 300 mg capsule Take 2 capsules by mouth three times daily for 360 days. ondansetron (ZOFRAN) 8 mg tablet Take 1 tablet by mouth every 8 hours as needed for nausea/vomiting. clopidogrel (PLAVIX) 75 mg tablet Take 1 tablet by mouth once daily. Post stents. FAMILY HISTORY Problem Relation Age of Onset Stroke Father Ischemic Heart Disease Mother Heart Maternal Grandmother Heart Brother Social History Tobacco Use Smoking status: Every Day Current packs/day: 0.50 Average packs/day: 0.5 packs/day for 54.3 years (27.1 ttl pk-yrs) Types: Cigarettes Start date: 1970 Smokeless tobacco: Never Vaping Use Vaping status: Never Used Substance Use Topics Alcohol use: Yes Comment: occasional beer Drug use: No BP 123/70 Pulse 108 Resp 24 Wt 54.9 kg (121 lb 0.5 oz) SpO2 95% BMI 18.56 kg/m? Physical Exam Vitals reviewed. Constitutional: Appearance: Normal appearance. Cardiovascular: Rate and Rhythm: Normal rate and regular rhythm. Heart sounds: Normal heart sounds. Pulmonary: Effort: Pulmonary effort is normal. Breath sounds: Normal breath sounds. No wheezing, rhonchi or rales. Neurological: Mental Status: He is alert. Heal (more content not included)... [facility] 07-18-2024 History of Present illness Narrative CC: Patient presents with: F/U 3 Month HPI Lela Quintero Guerrier is a 74 year old male who presents today for above. HTN-Medication changes:No Taking all medications as prescribed: Yes Side effects: No Home BP's: Yes 120's/70's Denies: headache, chest pain, palpitations, dyspnea, and peripheral edema. Last 3 Encounter BP Readings: Date: BP: 07/18/2024 123/70 05/24/2024 124/76 01/08/2024 123/68 PVD: prescribed Plavix by vascular doctor. Patient decreased dose to every other day due to excessive bruising. He has not discussed with vascular. Chronic bronchitis: denies frequent cough, wheezing or SOB. Uses albuterol infrequently as needed. Review of Systems See HPI PAST MEDICAL HISTORY Diagnosis Date AAA (abdominal aortic aneurysm) (HCC) 05/06/2013 Bladder cancer (HCC) 08/29/2016 Bladder tumor BPH without urinary obstruction 08/04/2015 Cervicalgia 11/03/2008 CHRONIC AIRWAY OBSTRUCTION NEC 01/12/2009 Colon cancer (HCC) 07/19/2013 s/p laparoscopic with conversion to open low anterior resection of the colon with abscess and appendectomy and completed chemo 2013 Hydronephrosis 2023 HYPERTENSION NOS 12/01/2008 Hypertrophy of prostate without [...] COLONOSCOPY 07/04/2017 recheck in 3 years, Dr. Tyson COLONOSCOPY FLX DX W/COLLJ SPEC WHEN PFRMD [...] DX W/WO COLLJ SPEC BR/WA SPX 07/19/2013 RADICAL PROSTATECTOMY 2016 REVASCULARIZATION ILIAC ARTERY ANGIOP 1ST VSL 09/12/2011 RMVL [facility] CTR VAD W/SUBQ PORT/SKIDWAY WORKER CTR/PRPH INSJ 09/03/2014 Removal right IJ port TRANSLUMINAL ANGIOPLASTY - ILIAC 01/15/2004 bilateral stents TRANSLUMINAL ANGIOPLASTY - ILIAC 04/14/2014 bilateral. ALLERGIES Bactrim [Sulfamethoxazole-Trimethoprim] MEDICATIONS acetaminophen-codeine (TYLENOL-COD #4) 300-60 mg per tablet Take 1 tablet by mouth every 4 hours as needed (30 day supply w/ 2 refills.) for up to 90 days. albuterol HFA (VENTOLIN HFA) 90 mcg/actuation inhaler Inhale 2 Puffs as instructed every 4 hours as needed for wheezing/shortness of breath. predniSONE (DELTASONE) 10 mg tablet Take 1 tablet by mouth once daily as needed (joint swelling). lisinopril (ZESTRIL) 20 mg tablet Take 1 tablet by mouth once daily. atorvastatin (LIPITOR) 20 mg tablet Take 1 tablet by mouth once daily. amLODIPine (NORVASC) 10 mg tablet Take 1 tablet by mouth once daily. ibuprofen (MOTRIN) 800 mg tablet Take 1 tablet by mouth three times a day as needed for pain. gabapentin (NEURONTIN) 300 mg capsule Take 2 capsules by mouth three times daily for 360 days. ondansetron (ZOFRAN) 8 mg tablet Take 1 tablet by mouth every 8 hours as needed for nausea/vomiting. clopidogrel (PLAVIX) 75 mg tablet Take 1 tablet by mouth once daily. Post stents. FAMILY HISTORY Problem Relation Age of Onset Stroke Father Ischemic Heart Disease Mother Heart Maternal Grandmother Heart Brother Social History Tobacco Use Smoking status: Every Day Current packs/day: 0.50 Average packs/day: 0.5 packs/day for 54.3 years (27.1 ttl pk-yrs) Types: Cigarettes Start date: 1970 Smokeless tobacco: Never Vaping Use Vaping status: Never Used Substance Use Topics Alcohol use: Yes Comment: occasional beer Drug use: No BP 123/70 Pulse 108 Resp 24 Wt 54.9 kg (121 lb 0.5 oz) SpO2 95% BMI 18.56 kg/m Physical Exam Vitals reviewed. Constitutional: Appearance: Normal appearance. Cardiovascular: Rate and Rhythm: Normal rate and regular rhythm. Heart sounds: Normal heart sounds. Pulmonary: Effort: Pulmonary effort is normal. Breath sounds: Normal breath sounds. No wheezing, rhonchi or rales. Neurological: Mental Status: He is alert. Health maintenance reviewed with patient: Depression Screening Never done Anxiety Screening Never done Advance Directive Discussion due on 10/23/2023 Influenza Vaccine(1) due on 06/23/2024 Shingrix Vaccine(1 of 2) due on 10/20/2024 RSV Vaccine(1 - 1-dose 75+ series) due on 2025 Annual PCP Team Chronic Disease Visit due on 05/24/2025 Serum Creatinine due on 05/24/2025 Hemoglobin/Hematocrit due on 05/24/2025 BP Controlled (<130/80) due on 05/24/2025 Diabetes Screening due on 05/24/2027 Colorectal Cancer Screening due on 12/28/2028 Lipid Screening due on 01/01/2029 DTaP,Tdap,Td Vaccine(2 - Td or Tdap) due on 04/04/2029 Abdominal Aortic Aneurysm Screening Completed Hepatitis C Screening Completed Pneumococcal Vaccine: 65+ Completed HPV Vaccine Aged Out Lung Cancer Screening Discontinued Covid-19 Vaccine Discontinued DATA REVIEWED: Most recent labs ASSESSMENT/PLAN: 1. Stage 3a chronic kidney disease (HCC) - ICD9: 585.3, ICD10: N18.31 (primary diagnosis) - eGFR: 38 Stable - Counseled on avoiding NSAIDs, adequate hydration - Counseled on low sodium diet - Medications reviewed and renally adjusted: he is taking Gabapentin 1800 mg total a day which exceeds the maximum recommended amount of 700 mg daily. Recommend weaning down to 300 mg three times a day. Patient is agreeable, see patient instructions - Follow up with kidney medicine 2. Peripheral vascular disease, unspecified (HCC) - ICD9: 443.9, ICD10: I73.9 Follow-up with vascular, instructed to let them know he decreased dose of Plavix 3. Peripheral polyneuropathy - ICD9: 356.9, ICD10: G62.9 Stable. See #1 4. Pure hypercholesterolemia - ICD9: 272.0, ICD10: E78.00 controlled - ATORVASTATIN 20 MG TABLET - LIPID PANEL BASIC 5. Cervicalgia - ICD9: 723.1, ICD10: M54.2 - IBUPROFEN 800 MG TABLET - GABAPENTIN 300 MG CAPSULE 6. Essential hypertension - ICD9: 401.9, ICD10: I10 - Controlled - Continue current medications - Recommend home blood pressure monitoring, to bring results to next visit - Encouraged sodium restriction, DASH or Mediterranean diet - LISINOPRIL 20 MG TABLET 7. Anemia, unspecified type - ICD9: 285.9, ICD10: D64.9 recheck - COMPLETE BLOOD COUNT - IRON AND TIBC - FERRITIN 8. Chronic bronchitis, unspecified chronic bronchitis type (HCC) - ICD9: 491.9, ICD10: J42 stable 9. Encounter for immunization - ICD9: V03.89, ICD10: Z23 - INFLUENZA VACCINE, PRSV FREE, AGE 65+ YR, HIGH DOSE, TRIVALENT (FLUZONE HIGH-DOSE) Rowena Sarabia APRN.MAINSTREAMING FACILITATOR Prescription instructions reviewed with patient as applicable. Potential red flag symptoms discussed with the patient. Reviewed appropriate action plan to take if red flag symptoms occur. Patient agreeable to treatment plan. Rowena Sarabia APRN.MAINSTREAMING FACILITATOR documented in this encounter [facility] 06-25-2024 Telephone encounter Note Prescription Refill Information The patient has been identified by name and date of : Yes Caregiver verified no other encounters exist for this prescription request: Yes Caregiver confirmed with patient/requestor that no other refills are due, in the near future, with this provider at this time: Yes The last office visit in the department: 05/24/24 Does the patient have a future office visit with this provider/department: Yes Requested Prescriptions Pending Prescriptions Disp Refills acetaminophen-codeine (TYLENOL-COD #4) 300-60 mg per tablet 150 tablet 2 Sig: Take 1 tablet by mouth every 4 hours as needed (30 day supply w/ 2 refills.) for up to 90 days. Joycelyn Gonzalez LPN June 25, 2024 8:17 AM [facility] 06-25-2024 Miscellaneous Notes Prescription Refill Information The patient has been identified by name and date of : Yes Caregiver verified no other encounters exist for this prescription request: Yes Caregiver confirmed with patient/requestor that no other refills are due, in the near future, with this provider at this time: Yes The last office visit in the department: 05/24/24 Does the patient have a future office visit with this provider/department: Yes Requested Prescriptions Pending Prescriptions Disp Refills acetaminophen-codeine (TYLENOL-COD #4) 300-60 mg per tablet 150 tablet 2 Sig: Take 1 tablet by mouth every 4 hours as needed (30 day supply w/ 2 refills.) for up to 90 days. Joycelyn Gonzalez LPN June 25, 2024 8:17 AM documented in this encounter [facility] 05-24-2024 Telephone encounter Note Patient aware, verbalizes understanding. Fara Rios LPN [facility] 05-24-2024 Miscellaneous Notes Patient aware, verbalizes understanding. Fara Rios LPN Please let the patient know anemia has improved, blood counts are trending up. Kidney function a little worse than at discharge, follow-up with the kidney specialist. Chest x-ray showing small amount of fluid on the left side of the lung, this does not need any treatment but notify us right away or go to the ER if he develops shortness of breath Rowena Sarabia APRN.MAINSTREAMING FACILITATOR documented in this encounter [facility] 05-24-2024 Telephone encounter Note Please let the patient know anemia has improved, blood counts are trending up. Kidney function a little worse than at discharge, follow-up with the kidney specialist. Chest x-ray showing small amount of fluid on the left side of the lung, this does not need any treatment but notify us right away or go to the ER if he develops shortness of breath Rowena Sarabia APRN.MAINSTREAMING FACILITATOR [facility] 05-24-2024 History of Present illness Narrative Radiology Service Progress Note PATIENT NAME: Lela Guerrier DATE OF SERVICE: May 24, 2024 TIME: 10:10 AM PATIENT IDENTITY VERIFICATION COMPLETED USING TWO (2) IDENTIFIERS: Name and Date of confirmed by patient verbally. FALL SCREENING: Has the patient had 2 falls in the last year or 1 fall with injury or currently using an Ambulatory Assistive Device (Walker, Cane, Wheelchair, Crutches, etc.)? Yes, Patient High Risk for Falls What interventions were put in place to prevent falls during this visit? Offered Assistance with Transfers/Clothing and Instructed Patient to Remain Seated (Not on Exam Table) Until Exam PATIENT GENDER DATA: Male PATIENT RELEVANT IMPLANT DATA REVIEWED: Not Applicable PATIENT PRESENTS WITH AN IMPLANTABLE OR ATTACHED ASSEMBLER DC FIELD RING: No RADIOLOGY DEPARTMENT: General X-ray: Exam(s) Completed: Chest X-Ray PERIPHERAL IV DATA: Not applicable SIGNED BY: RT Kavon(Leon) May 24, 2024 10:10 AM documented in this encounter [facility] 05-24-2024 Note HNO ID: [id number] Author: ELOY MCGHEE RT(Leon) Service: Radiology Author Type: Technologist Type: Progress Notes Filed: 05/24/2024 10:19 Note Text: Radiology Service Progress Note PATIENT NAME: Lela Guerrier DATE OF SERVICE: May 24, 2024 TIME: 10:10 AM PATIENT IDENTITY VERIFICATION COMPLETED USING TWO (2) IDENTIFIERS: Name and Date of confirmed by patient verbally. FALL SCREENING: Has the patient had 2 falls in the last year or 1 fall with injury or currently using an Ambulatory Assistive Device (Walker, Cane, Wheelchair, Crutches, etc.)? Yes, Patient High Risk for Falls What interventions were put in place to prevent falls during this visit? Offered Assistance with Transfers/Clothing and Instructed Patient to Remain Seated (Not on Exam Table) Until Exam PATIENT GENDER DATA: Male PATIENT RELEVANT IMPLANT DATA REVIEWED: Not Applicable PATIENT PRESENTS WITH AN IMPLANTABLE OR ATTACHED ASSEMBLER DC FIELD RING: No RADIOLOGY DEPARTMENT: General X-ray: Exam(s) Completed: Chest X-Ray PERIPHERAL IV DATA: Not applicable SIGNED BY: RT Kavon(R) May 24, 2024 10:10 AM [facility] 05-24-2024 Note HNO ID: [id number] Author: ROWENA SARABIA APRN.MAINSTREAMING FACILITATOR Service: ? Author Type: Nurse Practitioner Type: Progress Notes Filed: 05/24/2024 10:46 Note Text: CC: Patient presents with: Hospital F/U: [facility] - bowel obstruction surgery follow up HPI Lela Guerrier is a 74 year old male who presents today for above. He was admitted to [facility] 04/19 to 05/10 for SBO. On 04/30 he had exploratory laparotomy and lysis of adhesions. He was on TPN initially following surgery and eventually transitioned to regular diet. Discharged home with usual medications. He lost 10 lbs during admission. Appetite is improving, drinking at least one Ensure a day and no further weight loss. Still feeling a little weak, scheduled for outpatient PT/OT. Incision looks good. Denies abdominal pain. Stools are little loose. Denies constipation, black/bloody stools, rectal bleeding, nausea, vomiting. Complications during admission: MIRIAM- IV hydration, Lisinopril held. Creatinine at baseline by discharge. He is already established with nephrology and urology, will follow-up per usual. He is staying well hydrated, pushing fluids. UTI (enterococcus faecalis)- treated with IV Zosyn. Normal ileostomy output. No hematuria, foul smell, cloudiness, abnormal color, back/flank pain Anemia secondary to blood loss- transfused with 1 unit of PRBC's on 05/04, Hgb 7.4 at discharge and patient remained asymptomatic during admission. Denies dizziness, lightheadedness, feeling faint, syncope Large, left pleural effusion- thoracentesis on 04/22 with pigtail placed. Cytology was negative for malignancy. Patient denies SOB, cough, wheezing or chest tightness. Review of Systems Constitutional: Positive for fatigue. Negative for chills, diaphoresis and fever. Cardiovascular: Negative for chest pain, palpitations and leg swelling. PAST MEDICAL HISTORY 05/06/2013: AAA (abdominal aortic aneurysm) (HCC) 08/29/2016: Bladder cancer (HCC) No date: Bladder tumor 08/04/2015: BPH without urinary obstruction 11/03/2008: Cervicalgia 01/12/2009: CHRONIC AIRWAY OBSTRUCTION NEC 07/19/2013: Colon cancer (HCC) Comment: s/p laparoscopic with conversion to open low anterior resection of the colon with abscess and appendectomy and completed chemo 2013 2023: Hydronephrosis 12/01/2008: HYPERTENSION NOS 12/01/2008: Hypertrophy of prostate without urinary obstruction and other lower urinary tract symptoms (LUTS) No date: Malignant neoplasm of overlapping sites of bladder (HCC) 06/14/2005: Pain in limb 06/21/2005: PERIPH VASCULAR DIS NOS Comment: s/p bilateral common iliac artery [place] stenting. s/p angioplasty of instent PAD stent 201306/21/2005: PURE HYPERCHOLESTEROLEM 03/04/2010: Rheumatoid arthritis(714.0) Comment: hands 06/14/2005: Tobacco use disorder PAST SURGICAL HISTORY 07/03/2019: ANGIOPLASTY FEMORAL/POP; Bilateral Comment: multiple stents (4) 06/21/2021: ANGIOPLASTY-ILIAC; Bilateral Comment: R exteranl iliac angioplasty/stent. L common iliac, external iliac angioplasty 07/25/2013: COLECTOMY PRTL W/COLOPROCTOSTOMY 07/04/2017: COLONOSCOPY Comment: recheck in 3 years, Dr. Tyson 07/12/2013: COLONOSCOPY FLX DX W/COLLJ SPEC WHEN PFRMD Comment: Colonoscopy 07/11/2014: COLONOSCOPY FLX DX W/COLLJ SPEC WHEN PFRMD Comment: repeat in 3 years 07/12/2013: ESOPHAGOGASTRODUODENOSCOPY TRANSORAL DIAGNOSTIC Comment: EGD 08/28/2013: INSJ TUNNELED CTR VAD W/SUBQ PORT AGE 5 YR/> Comment: RIGHT 09/08/2016: LAP CYSTECTOMY COMPLETE WITH CONDUIT 07/25/2013: LAPAROSCOPIC APPENDECTOMY 08/29/2016: LAPAROSCOPIC RADICAL PROSTATECTOMY Comment: Cysto-prostatectomy, Ileal conduit, pelvic LN dissection 07/19/2013: PROCTOSGMDSC RGD DX W/WO COLLJ SPEC BR/WA SPX 2016: RADICAL PROSTATECTOMY 09/12/2011: REVASCULARIZATION ILIAC ARTERY ANGIOP 1ST VSL 09/03/2014: [facility] CTR VAD W/SUBQ PORT/SKIDWAY WORKER CTR/PRPH INSJ Comment: Removal right IJ port 01/15/2004: TRANSLUMINAL ANGIOPLASTY - ILIAC Comment: bilateral stents 04/14/2014: TRANSLUMINAL ANGIOPLASTY - ILIAC Comment: bilateral. ALLERGIES Bactrim [Sulfamethoxazole-Trimethoprim] MEDICATIONS predniSONE (DELTASONE) [...] times a day as needed for pain. gabapentin (NEURONTIN) 300 mg capsule Take 2 capsules by mouth three times daily for 360 days. ondansetron (ZOFRAN) 8 mg tablet Take 1 tablet by mouth every 8 hours as needed for nausea/vomiting. clopidogrel (PLAVIX) 75 mg tablet Take 1 tablet by mouth once daily. Post stents. albuterol HFA (V (more content not included)... [facility] 05-24-2024 History of Present illness Narrative Images from the original note were not included. CC: Patient presents with: Hospital F/U: [facility] - bowel obstruction surgery follow up HPI Lela Quintero Guerrier is a 74 year old male who presents today for above. He was admitted to [facility] 04/19 to 05/10 for SBO. On 04/30 he had exploratory laparotomy and lysis of adhesions. He was on TPN initially following surgery and eventually transitioned to regular diet. Discharged home with usual medications. He lost 10 lbs during admission. Appetite is improving, drinking at least one Ensure a day and no further weight loss. Still feeling a little weak, scheduled for outpatient PT/OT. Incision looks good. Denies abdominal pain. Stools are little loose. Denies constipation, black/bloody stools, rectal bleeding, nausea, vomiting. Complications during admission: MIRIAM- IV hydration, Lisinopril held. Creatinine at baseline by discharge. He is already established with nephrology and urology, will follow-up per usual. He is staying well hydrated, pushing fluids. UTI (enterococcus faecalis)- treated with IV Zosyn. Normal ileostomy output. No hematuria, foul smell, cloudiness, abnormal color, back/flank pain Anemia secondary to blood loss- transfused with 1 unit of PRBC's on 05/04, Hgb 7.4 at discharge and patient remained asymptomatic during admission. Denies dizziness, lightheadedness, feeling faint, syncope Large, left pleural effusion- thoracentesis on 04/22 with pigtail placed. Cytology was negative for malignancy. Patient denies SOB, cough, wheezing or chest tightness. Review of Systems Constitutional: Positive for fatigue. Negative for chills, diaphoresis and fever. Cardiovascular: Negative for chest pain, palpitations and leg swelling. PAST MEDICAL HISTORY 05/06/2013: AAA (abdominal aortic aneurysm) (HCC) 08/29/2016: Bladder cancer (HCC) No date: Bladder tumor 08/04/2015: BPH without urinary obstruction 11/03/2008: Cervicalgia 01/12/2009: CHRONIC AIRWAY OBSTRUCTION NEC 07/19/2013: Colon cancer (HCC) Comment: s/p laparoscopic with conversion to open low anterior resection of the colon with abscess and appendectomy and completed chemo 2013 2023: Hydronephrosis 12/01/2008: HYPERTENSION NOS 12/01/2008: Hypertrophy of prostate without urinary obstruction and other lower urinary tract symptoms (LUTS) No date: Malignant neoplasm of overlapping sites of bladder (HCC) 06/14/2005: Pain in limb 06/21/2005: PERIPH VASCULAR DIS NOS Comment: s/p bilateral common iliac artery [place] stenting. s/p angioplasty of instent PAD stent 2014 06/21/2005: PURE HYPERCHOLESTEROLEM 03/04/2010: Rheumatoid arthritis(714.0) Comment: hands 06/14/2005: Tobacco use disorder PAST SURGICAL HISTORY 07/03/2019: ANGIOPLASTY FEMORAL/POP; Bilateral Comment: multiple stents (4) 06/21/2021: ANGIOPLASTY-ILIAC; Bilateral Comment: R exteranl iliac angioplasty/stent. L common iliac, external iliac angioplasty 07/25/2013: COLECTOMY PRTL W/COLOPROCTOSTOMY 07/04/2017: COLONOSCOPY Comment: recheck in 3 years, Dr. Tyson 07/12/2013: COLONOSCOPY FLX DX W/COLLJ SPEC WHEN PFRMD Comment: Colonoscopy 07/11/2014: COLONOSCOPY FLX DX W/COLLJ SPEC WHEN PFRMD Comment: repeat in 3 years 07/12/2013: ESOPHAGOGASTRODUODENOSCOPY TRANSORAL DIAGNOSTIC Comment: EGD 08/28/2013: INSJ TUNNELED CTR VAD W/SUBQ PORT AGE 5 YR/> Comment: RIGHT 09/08/2016: LAP CYSTECTOMY COMPLETE WITH CONDUIT 07/25/2013: LAPAROSCOPIC APPENDECTOMY 08/29/2016: LAPAROSCOPIC RADICAL PROSTATECTOMY Comment: Cysto-prostatectomy, Ileal conduit, pelvic LN dissection 07/19/2013: PROCTOSGMDSC RGD DX W/WO COLLJ SPEC BR/WA SPX 2016: RADICAL PROSTATECTOMY 09/12/2011: REVASCULARIZATION ILIAC ARTERY ANGIOP 1ST VSL 09/03/2014: RMVL [facility] CTR VAD W/SUBQ PORT/SKIDWAY WORKER CTR/PRPH INSJ Comment: Removal right IJ port 01/15/2004: TRANSLUMINAL ANGIOPLASTY - ILIAC Comment: bilateral stents 04/14/2014: TRANSLUMINAL ANGIOPLASTY - ILIAC Comment: bilateral. ALLERGIES Bactrim [Sulfamethoxazole-Trimethoprim] MEDICATIONS predniSONE (DELTASONE) [...] times a day as needed for pain. gabapentin (NEURONTIN) 300 mg capsule Take 2 [...] instructed every 4 hours as needed for wheezing/shortness of breath. lisinopril (ZESTRIL) 20 mg tablet Take 1 tablet by mouth once daily. (Patient not taking: Reported on 03/20/2024) FAMILY HISTORY Problem Relation Age of Onset Stroke Father Ischemic Heart Disease Mother Heart Maternal Grandmother Heart Brother Social History Tobacco Use Smoking status: Every Day Packs/day: 0.50 Years: 53.00 Additional pack years: 0.00 Total pack years: 26.50 Types: Cigarettes Start date: 1970 Smokeless tobacco: Never Vaping Use Vaping Use: Never used Substance Use Topics Alcohol use: Yes Comment: occasional beer Drug use: No BP 124/76 Pulse 74 Resp 20 Wt 54.5 kg (120 lb 2.4 oz) SpO2 88% BMI 18.42 kg/m Physical Exam Vitals reviewed. Constitutional: General: He is not in acute distress. Appearance: He is underweight. He is ill-appearing. He is not toxic-appearing. HENT: Mouth/Throat: Mouth: Mucous membranes are moist. Eyes: Conjunctiva/sclera: Conjunctivae normal. Cardiovascular: Rate and Rhythm: Normal rate and regular rhythm. Heart sounds: No murmur heard. Pulmonary: Effort: Pulmonary effort is normal. Breath sounds: Decreased breath sounds (left lower lobe) and rales (left lower lobe) present. No wheezing or rhonchi. Abdominal: General: A surgical scar is present. The ostomy site is clean. Bowel sounds are normal. There is no distension. Palpations: Abdomen is soft. There is no hepatomegaly, splenomegaly or mass. Tenderness: There is no abdominal tenderness. There is no right CVA tenderness or left CVA tenderness. Skin: General: Skin is warm and dry. Neurological: Mental Status: He is alert. Psychiatric: Mood and Affect: Mood is anxious. DATA REVIEWED: Outside chart from [facility] reviewed. ASSESSMENT/PLAN: 1. Anemia, unspecified type - ICD9: 285.9, ICD10: D64.9 (primary diagnosis) Secondary to blood loss. Transfused with 1 unit PRBC's during admission. Asymptomatic Check labs today: - COMPLETE BLOOD COUNT - IRON AND TIBC - FERRITIN - VITAMIN B12 - FOLATE, SERUM 2. MIRIAM (acute kidney injury) (HCC) - ICD9: 584.9, ICD10: N17.9 Creatinine at baseline at discharge. Recheck today - COMPREHENSIVE METABOLIC PANEL 3. Pleural effusion - ICD9: 511.9, ICD10: J90 Etiology unclear. Thoracentecis during admission, fluid cytology negative for malginancy. Mildly hypoxic today however patient is asymptomatic, pulse oximetry likely inaccurate due to anemia - XR CHEST 2V FRONTAL/LAT 4. S/P laparotomy with lysis of adhesions - ICD9: V45.89, ICD10: Z98.890 Incision well healed, no signs of infection 5. Small bowel obstruction due to adhesions (HCC) - ICD9: 560.81, ICD10: K56.50 resolved 6. Debility - ICD9: 799.3, ICD10: R53.81 Scheduled for PT/OT Prescription instructions reviewed with patient as applicable. Potential red flag symptoms discussed with the patient. Reviewed appropriate action plan to take if red flag symptoms occur. Patient agreeable to treatment plan. Rowena Sarabia APRN.MAINSTREAMING FACILITATOR documented in this encounter [facility] 05-17-2024 Telephone encounter Note Tylenol No. 3 was filled May 10. Next refill June 10. He also got one prescription for oxycodone from someone in [place]. Next refill June 10 as per routine. Patient's request for medication is as follows Requested Prescriptions Signed Prescriptions Disp Refills albuterol HFA (VENTOLIN HFA) 90 mcg/actuation inhaler 3 Each 0 Sig: Inhale 2 Puffs as instructed every 4 hours as needed for wheezing/shortness of breath. Authorizing Provider: ARNIE CHIANG predniSONE (DELTASONE) 10 mg tablet 90 tablet 0 Sig: Take 1 tablet by mouth once daily as needed (joint swelling). Authorizing Provider: ARNIE CHIANG Refused Prescriptions Disp Refills acetaminophen-codeine (TYLENOL-COD #4) 300-60 mg per tablet 150 tablet 0 Sig: Take 1 tablet by mouth every 4 hours as needed for up to 30 days. Refused By: ARNIE CHIANG Reason for Refusal: Patient has requested refill too soon Order entered - please phone pharmacy and notify patient. Arnie Chiang MD [facility] 05-17-2024 Miscellaneous Notes Tylenol No. 3 was filled May 10. Next refill June 10. He also got one prescription for oxycodone from someone in [place]. Next refill June 10 as per routine. Patient's request for medication is as follows Requested Prescriptions Signed Prescriptions Disp Refills albuterol HFA (VENTOLIN HFA) 90 mcg/actuation inhaler 3 Each 0 Sig: Inhale 2 Puffs as instructed every 4 hours as needed for wheezing/shortness of breath. Authorizing Provider: ARNIE CHIANG predniSONE (DELTASONE) 10 mg tablet 90 tablet 0 Sig: Take 1 tablet by mouth once daily as needed (joint swelling). Authorizing Provider: ARNIE CHIANG Refused Prescriptions Disp Refills acetaminophen-codeine (TYLENOL-COD #4) 300-60 mg per tablet 150 tablet 0 Sig: Take 1 tablet by mouth every 4 hours as needed for up to 30 days. Refused By: ARNIE CHIANG Reason for Refusal: Patient has requested refill too soon Order entered - please phone pharmacy and notify patient. Arnie Chiang MD Pt calling in again checking on status of refill request Patient reports he went to [facility] on 04-18-24 with SBO (from scar tissue r/t having prostate & bladder removed). Was transferred to [facility], and spent 28 days there: from 04-18-24 to 05-10-24. Reports he thought he cancelled his appt with pcp on 04-19-24, but it states no show. However his 07-16-24 appt with pcp was cancelled by patient, and patient was not aware it was cancelled, stating he must have accidentally cancelled it, when he meant to cancel the 04-19 appt. Patient reports he has appt with [facility] tomorrow, and they are going to remove his sutures and edd. He thought the 2 hour appt was for therapy- but he is not sure. He will find out tomorrow. Patient plans to call pcp office on Mon to schedule appt with pcp office, once he figures out how his appts are going to go. Patient asking for refills on his tylenol #4, prednisone, and albuterol, and requesting the Rx's be sent to [facility]. Pended. Last ov in pcp office: 01-08-24. Please phone patient with any questions. documented in this encounter [facility] 05-16-2024 Telephone encounter Note Pt calling in again checking on status of refill request [facility] 05-15-2024 Telephone encounter Note Patient reports he went to [facility] on 04-18-24 with SBO (from scar tissue r/t having prostate & bladder removed). Was transferred to [facility], and spent 28 days there: from 04-18-24 to 05-10-24. Reports he thought he cancelled his appt with pcp on 04-19-24, but it states no show. However his 07-16-24 appt with pcp was cancelled by patient, and patient was not aware it was cancelled, stating he must have accidentally cancelled it, when he meant to cancel the 04-19 appt. Patient reports he has appt with [facility] tomorrow, and they are going to remove his sutures and edd. He thought the 2 hour appt was for therapy- but he is not sure. He will find out tomorrow. Patient plans to call pcp office on Fri to schedule appt with pcp office, once he figures out how his appts are going to go. Patient asking for refills on his tylenol #4, prednisone, and albuterol, and requesting the Rx's be sent to [facility]. Pended. Last ov in pcp office: 01-08-24. Please phone patient with any questions. [facility] 05-10-2024 History of Present illness Narrative Transitional Shingle Catcher Note: Patient discussed in morning rounds, per medical team (ACS) patient is medically ready. Discharge dispo: Plan for patient to discharge home with outpatient therapy at [facility], TCC provided patient and family with therapy appointment information and PT/OT outpatient therapy scripts. Patient and family inquired about FWW and bedside commode prior to discharge. TCC updated ACS team to place order/scripts for requested DME. TCC to fax/email referral to Amy Bruno [phone] (fax). Per patient children to assist with discharge transportation, to arrive at 5pm. Bedside nurse updated. IMM discussed and provided to patient. Patient expressed appreciation of information and is agreeable to discharge plan. Ale WAYN Transitional Shingle Catcher UPDATE 05/10/2024 11:30 TCC faxed and emailed DME referral to Dania Bruno at fax number provided above ([email or web address]). Pending response. Ale WAYN Transitional Shingle Catcher UPDATE 05/10/2024 12:48 TCC received a call from Amy Najera [phone] stating patient is OON with DME company. Dania informed TCC that patient insurance is within network for [employer] [facility]. TCC faxed referral to [employer] [phone] [phone], no answer voicemail left. Ale WAYN Transitional Shingle Catcher UPDATE 05/10/2024 14:54 TCC sent referral to [facility] via [employer]port and placed follow up call to for updated on acceptance and delivery of DME to patient's home. TCC spoke with Aviva Alvarenga who requested TCC call back number to provide update, call back number provided, awaiting update. Ale Oconnor RN BSN Transitional Shingle Catcher UPDATR 05/10/2024 15:58 TCC received call back from Aviva Alvarenga [facility] location stating DME company is out of service area. Aviva stated [facility] located [address] [place] [address] is able to deliver to home. TCC called [facility] [phone]. DME company has received referral, DME approved and able to deliver to patient today for patient to contact company upon arriving home. TCC provided patient and family with accepting DME company contact number. Ale Oconnor RN BSN Transitional Shingle Catcher Occupational Therapy Occupational Therapy Treatment Name: Lela Guerrier : 1950 Date: 05/09/24 Room: [facility] 05/09/24 1412 OT Last Visit OT Received On 05/09/24 General Reason for Referral Presented to OSH with abdominal pain nausea, emesis. Found to have SBO, ex lap on 04/30 Past Medical History Relevant to Rehab RA, COPD, prostate ca, bladder ca, CAD, PAD, BPH, HTN, GERD, colon ca, AAA, PAD, ileal conduit, cystectomy, prostatectomy, s/p peripheral artery angioplasty, s/p colectomy Family/Caregiver Present Yes Caregiver Feedback present Prior to Session Communication Bedside nurse Patient Position Received Bed, 3 rail up;Alarm off, not on at start of session Preferred Learning Style auditory;verbal General Comment pt supine in bed and agreeable to OT treatment Precautions Medical Precautions Fall precautions;Abdominal precautions Post-Surgical Precautions Abdominal surgery precautions Pain Assessment Pain Assessment 0-10 0-10 (Numeric) Pain Score 5 - Moderate pain Pain Type Acute pain Pain Location Back Pain Interventions Repositioned Response to Interventions best at rest Cognition Overall Cognitive Status WFL Orientation Level Oriented X4 Safety/Judgement X Insight Mild Impulsive Mildly Processing Speed Delayed Toileting Toileting Level of Assistance Close supervision Where Assessed Toilet Toileting Comments pt completed toileting with SUP. Pt required cueing for walker positioning and management as well as cuein for use of grab bars for sitting and rising to improve safety and balance. Pt was mildly impulsive requiring consistent cueing for pacing to improve safety. Increased time to complete Bed Mobility Bed Mobility Yes Bed Mobility 1 Bed Mobility 1 Supine to sitting Level of Assistance 1 Close supervision Bed Mobility Comments 1 HOB elevated with SUP. Pt provided education and cueing for log roll to adhere to ABD precautions. Transfers Transfer Yes Transfer 1 Transfer From 1 Bed to Transfer to 1 Toilet Technique 1 (ambulating) Transfer Device 1 Walker Transfer Level of Assistance 1 Contact guard Trials/Comments 1 pt completed ambulating transfer from bed to toilet with CGA for balance and safety. Pt required cueing for pacing to improve safety due to mild impulsivity. Transfers 2 Transfer From 2 Sit to;Stand to Transfer to 2 Stand;Sit Technique 2 Sit to stand Transfer Device 2 Walker Transfer Level of Assistance 2 Contact guard Trials/Comments 2 pt completed STS from EOB with CGA for balance and safety. Pt provided cueing for positioning and pacing to improve balance and safety Transfers 3 Transfer From 3 Toilet to Transfer to 3 Chair with arms Technique 3 (Ambulating) Transfer Device 3 Walker Transfer Level of Assistance 3 Contact guard Trials/Comments 3 Cues to slow pace and adhere to environtmental obstacles Therapeutic Activity Therapeutic Activity Performed Yes Therapeutic Activity 1 Object retrieval with several wash clothes in bathroom to challenge standing balance and safety awareness, pt requires cues to reposition walker and remain within PERRY, with moves a quick pace and cues to slow pace and focus on safety Therapeutic Activity 2 Functional mobility and transfers within room using FWW from various surfaces including bed, chair, and toilet. Cues to increase safety and Min A for standing balance with occasional LOB. IP OT Assessment OT Assessment Progressing towards OT goals, demos increased functional mobility and standing balance, however continues to be below baseline. Evaluation/Treatment Tolerance Patient tolerated treatment well Medical Staff Made Aware Yes End of Session Communication Bedside nurse End of Session Patient Position Up in chair;Alarm off, caregiver present;Alarm off, not on at start of session Inpatient Plan OT Frequency 4 times per week OT Discharge Recommendations High intensity level of continued care OT Recommended Transfer Status Minimal assist;Assist of 1 OT - OK to Discharge Yes Equipment Recommended upon Discharge Bedside commode Goals: Encounter Problems Encounter Problems (Active) ADLs Patient with complete lower body dressing with modified independent level of assistance donning and doffing all LE clothes with PRN adaptive equipment while edge of bed and standing (Progressing) Start: 05/02/24 Expected End: 05/23/24 Patient will complete daily grooming tasks brushing teeth and washing face/hair with modified independent level of assistance and PRN adaptive equipment while standing. (Progressing) Start: 05/02/24 Expected End: 05/23/24 Patient will complete toileting including hygiene clothing management/hygiene with modified independent level of assistance and raised toilet seat. (Progressing) Start: 05/02/24 Expected End: 05/23/24 BALANCE Pt will maintain dynamic standing balance during ADL task with modified independent level of assistance in order to demonstrate decreased risk of falling and improved postural control. (Progressing) Start: 05/02/24 Expected End: 05/23/24 COGNITION/SAFETY Patient will recall and adhere to ABD precautions during all functional mobility/ADL tasks in order to demonstrate improved understanding and promote healing post op (Progressing) Start: 05/02/24 Expected End: 05/23/24 Patient will score WFL on standardized cognitive assessment without cues and within reasonable time frame (Progressing) Start: 05/02/24 Expected End: 05/23/24 TRANSFERS Patient will complete functional transfers with least restrictive device with modified independent level of assistance. (Progressing) Start: 05/02/24 Expected End: 05/23/24 05/09/24 at 3:15 PM Asad Horn OT [phone] Transitional Shingle Catcher Note: Patient discussed in morning rounds, per medical team (ACS) patient is medically ready. Discharge dispo: Plan for patient to discharge home with outpatient therapy. TCC met with patient and patient's to confirm patient and family now wants outpatient therapy and not AR or homecare. Patient and patient's confirmed they would like to discharge home with outpatient therpay. Patient and family selected [facility] as clinic of choice as locations on Outpatient Location sheet were 30+ mins for closet location. TCC placed call to [place] outpatient [facility]hab [phone] spoke with Viktor to schedule appointment. Appointment scheduled for 05/16/2024 PT 12pm and OT 1pm. TCC to fax outpatient therapy scripts to [facility] once completed by ACS team (fax [phone]). TCC provided patient and patient's with appointment information. Location: [address] [address] Date: 05/16/2024 Time: 12pm PT and 1pm OT Ale Oconnor RN BSN Transitional Shingle Catcher Spoke with patient regarding [facility] being unable to accept him. Patient stated he would prefer to stay at home and go to outpatient PT. Discussed the different options, AR, SNF, HC/OP. Patient wants to have outpatient PT/OT scripts to continue outpatient therapy at [facility]. Medical team notified. Jana Correia RN, TCC Physical Therapy Physical Therapy Treatment Patient Name: Lela Guerrier Today's Date: 05/08/2024 Time Calculation Start Time: 944 Stop Time: 5 Time Calculation (min): 30 min Assessment/Plan PT Assessment End of Session Communication: Bedside nurse Assessment Comment: Pt tolerated PT session well, able to progress ambulation into hallway this date, however pt continues to remain slightly impulsive and required increased verbal cues for safety. Pt continues to remain appropriate for High intensity PT upon D/C from hospital. End of Session Patient Position: Up in chair, Alarm off, not on at start of session ( present) PT Plan Inpatient/Swing Bed or Outpatient: Inpatient PT Plan Treatment/Interventions: Bed mobility, Transfer training, Gait training, Stair training, Balance training, Strengthening, Endurance training, Therapeutic exercise, Range of motion, Therapeutic activity, Home exercise program, Positioning PT Plan: Ongoing PT PT Frequency: 5 times per week PT Discharge Recommendations: High intensity level of continued care Equipment Recommended upon Discharge: Wheeled walker PT Recommended Transfer Status: Assist x1 PT - OK to Discharge: Yes General Visit Information: PT Visit PT Received On: 05/08/24 General Missed Visit: No Missed Visit Reason: (n/a) Family/Caregiver Present: Yes Caregiver Feedback: present Prior to Session Communication: Bedside nurse Patient Position Received: Bed, 3 rail up, Alarm off, not on at start of session General Comment: Pt supine in bed, agreeable to work with PT. Subjective Precautions: Precautions Medical Precautions: Fall precautions, Abdominal precautions Post-Surgical Precautions: Abdominal surgery precautions Vital Signs: Vital Signs Heart Rate: 107 Objective Pain: Pain Assessment Pain Assessment: 0-10 0-10 (Numeric) Pain Score: 5 - Moderate pain Pain Location: Back Pain Orientation: Lower Cognition: Cognition Overall Cognitive Status: Within Functional Limits Impulsive: Mildly Activity Tolerance: Activity Tolerance Endurance: Tolerates 10 - 20 min exercise with multiple rests Treatments: Therapeutic Activity Therapeutic Activity Performed: Yes Therapeutic Activity 1: Pt performed dynamic standing ~4-5 minutes with CGA and 1-2 UE support on FWW. Pt limited by fatigue. Therapeutic Activity 2: Pt performed standing Marching and Hip ABD x10 BLE Therapeutic Activity 3: Pt performed reaching foward and reaching above head with 1 UE support on FWW CGA x5 BUE Bed Mobility Bed Mobility: Yes Bed Mobility 1 Bed Mobility 1: Supine to sitting Level of Assistance 1: Contact guard Bed Mobility Comments 1: HOB elevated, cues for sequencing. Ambulation/Gait Training Ambulation/Gait Training Performed: Yes Ambulation/Gait Training 1 Surface 1: Level tile Device 1: Rolling walker Assistance 1: Minimum assistance, Moderate verbal cues Quality of Gait 1: Diminished heel strike, Inconsistent stride length, Decreased step length, Forward flexed posture (Unsteady, quick paced, slightly impulsive,) Comments/Distance (ft) 1: x20ft, cues for seqeuncing and use of FWW. Increased verbal cues for safety awareness. Pt with increased fatigue and nausea, increased time seated rest break. Transfers Transfer: Yes Transfer 1 Transfer From 1: Sit to Transfer to 1: Stand Technique 1: Sit to stand Transfer Device 1: Walker Transfer Level of Assistance 1: Contact guard, Moderate verbal cues, Minimum assistance Trials/Comments 1: x2 Min-CGA, cues for sequencing and safe hand placement Transfers 2 Transfer From 2: Stand to Transfer to 2: Sit Technique 2: Stand to sit Transfer Device 2: Walker Transfer Level of Assistance 2: Contact guard, Moderate verbal cues Trials/Comments 2: x2 trials, increased cues for safe hand placement for slow and controlled descent to seated position, despite verbal cues pt keeps BUE support on FWW vs reaching for armrest. Stairs Stairs: No Outcome Measures: [facility] Basic Mobility Turning from your back to your side while in a flat bed without using bedrails: A little Moving from lying on your back to sitting on the side of a flat bed without using bedrails: A little Moving to and from bed to chair (including a wheelchair): A little Standing up from a chair using your arms (e.g. wheelchair or bedside chair): A little To walk in hospital room: A lot Climbing 3-5 steps with railing: A lot Basic Mobility - Total Score: 16 Education Documentation Precautions, taught by Morena Moon PTA at 05/08/2024 11:03 AM. Learner: Patient Readiness: Acceptance Method: Explanation Response: Needs Reinforcement Body Mechanics, taught by Morena Moon PTA at 05/08/2024 11:03 AM. Learner: Patient Readiness: Acceptance Method: Explanation Response: Needs Reinforcement Mobility Training, taught by Morena Moon PTA at 05/08/2024 11:03 AM. Learner: Patient Readiness: Acceptance Method: Explanation Response: Needs Reinforcement Encounter Problems Encounter Problems (Active) Mobility STG - Patient will ambulate >/= 250 ft with Nicholas and FWW (Progressing) Start: 05/03/24 Expected End: 05/17/24 STG - Patient will ascend and descend a flight of stairs Nicholas (Progressing) Start: 05/03/24 Expected End: 05/17/24 PT Transfers STG - Transfer from bed to chair Nicholas and FWW (Progressing) Start: 05/03/24 Expected End: 05/17/24 STG - Patient will perform bed mobility Nicholas (Progressing) Start: 05/03/24 Expected End: 05/17/24 STG - Patient will transfer sit to and from stand Nicholas and FWW (Progressing) Start: 05/03/24 Expected End: 05/17/24 Pain - Adult 05/08/24 at 11:05 AM Morena Moon PTA Rehab Office: [phone] [facility] ACUTE CARE SURGERY - PROGRESS NOTE Patient Name: Lela Guerrier Admit Date: [id number] : 1950 AGE: 74 y.o. GENDER: male == TODAY'S ASSESSMENT AND PLAN OF CARE: 74 y.o. male with pmx of RA, COPD, prostate ca, bladder ca, CAD, PAD, BPH, HTN, GERD, colon ca, AAA, PAD, ileal conduit, cystectomy, prostatectomy, s/p peripheral artery angioplasty, s/p colectomy presented to OSH with abdominal pain nausea, emesis. CT concerning for SBO. Went to OR with ACS on 04/30 for ex lap and lysis of adhesions. Neuro: postop pain management - transitioned to oral pain regimen - Scheduled Tylenol, scheduled Ibuprofen for 24 hours - Scheduled Valium - Lidoderm patch - Oxycodone 5/10mg PRN - IV Dilaudid for breakthrough CV: Hx of HTN, CAD, AAA - vital signs qshift - Continue home Norvasc, Lipitor - Holding home Lisinopril with mildly elevated Cr level - Resume home Plavix Pulm - maintain O2>92 % - PRN albuterol GI: - advance to full liquid diet today with supplements - ctm for n/v - Protein Calorie Malnutrition: PICC line, maintain TPN at goal, discontinue Lipids now that on diet - daily bisacodyl suppository & Miralax : Acute Kidney Injury- non oliguric - creat improving 1. 35 yesterday, pending today - avoid nephrotoxins, optimum resuscitation - daily RFP - replete electrolytes PRN Heme: acute blood loss anemia: asymptomatic - Transfusion for Hgb <7 Endo: No hx of DM Stress hyperglycemia - Supplemental insulin while on TPN ID: Complicated UTI Cultures grew Enterococcus faecalis sensitive to Unasyn - Unasyn for 14days (end date 05/13) - Trend WBC DVT Proph: - SCDs, SQH DVT: SCDs, SQH Dispo: Continue RNF, acute rehab planning Patient seen and discussed with Attending Dr. Thai Lynn APRN-[facility] Acute Care Surgery Pager [phone] == CHIEF COMPLAINT / EVENTS LAST 24HRS / HPI: No acute events overnight, tolerating clear liquids. Continues to pass flatus and had a BM this morning. Is taking anti-emetics preventatively due to c/f becoming nauseated MEDICAL HISTORY / ROS: Admission history and ROS reviewed. Pertinent changes as follows: NA PHYSICAL EXAM: Heart Rate: [74-84] Temp: [36.1 C (97 F)-37.4 C (99.3 F)] Resp: [16] BP: (149-159)/(57-84) SpO2: [94 %-97 %] Physical Exam Constitutional: Appearance: Normal appearance. Eyes: Extraocular Movements: Extraocular movements intact. Cardiovascular: Comments: Non cyanotic Pulmonary: Comments: Non labored, good chest expansion Abdominal: Comments: Appropriately tender abdomen, nondistended, soft. Midline incision closed with edd. CDI. Genitourinary: Comments: Ileal conduit in place- stoma pink and functioning yellow urine Musculoskeletal: General: Normal range of motion. Skin: General: Skin is warm and dry. Neurological: Mental Status: He is alert and oriented to person, place, and time. Psychiatric: Behavior: Behavior normal. IMAGING SUMMARY: (summary of new imaging findings, not a copy of dictation) No new LABS: Results from last 7 days Lab Units 05/07/24 0841 05/06/24 0823 05/05/24 0913 WBC AUTO x10*3/uL 7.1 7.4 8.7 HEMOGLOBIN g/dL 7.6* 7.7* 8.0* HEMATOCRIT % 25.2* 25.7* 25.6* PLATELETS AUTO x10*3/uL 285 288 302 Results from last 7 days Lab Units 05/07/24 0841 05/06/24 0823 05/05/24 0913 05/04/24 1213 05/02/24 0818 SODIUM mmol/L 142 143 143 < > 143 POTASSIUM mmol/L 4.2 4.0 4.3 < > 3.4* CHLORIDE mmol/L 109* 108* 108* < > 104 CO2 mmol/L 27 27 27 < > 31 BUN mg/dL 43* 45* 41* < > 71* CREATININE mg/dL 1.35* 1.44* 1.25 < > 1.96* CALCIUM mg/dL 7.6* 7.6* 7.7* < > 7.4* ALK PHOS U/L -- -- -- -- 77 ALT U/L -- -- -- -- 26 AST U/L -- -- -- -- 18 GLUCOSE mg/dL 104* 126* 98 < > 151* < > = values in this interval not displayed. I have reviewed all medications, laboratory results, and imaging pertinent for today's encounter. Transitional Shingle Catcher Note: Patient discussed in morning rounds, per medical team (ACS) patient is not medically ready, pending return of bowel function. Discharge dispo: Plan for patient to discharge to [facility] when medically ready. TCC met with patient and patient's to obtain FOC for AR. Patient and family chose [facility] as FOC. Family does not have a second choice as they would like a facility close to home. TCC sent clinicals and referral to facility listed pending acceptance. ACS team updated. Ale Oconnor RN BSN Transitional Shingle Catcher UPDATE 05/07/2024 14:29 TCC received call from [place] baljinder Castillo [phone]. Anna stated facility denied patient due possible obstruction and concern patient can not tolerate 3hrs of therapy. TCC attempted to meet with patient and family to update regarding denial and obtain additional choices. Patient receiving care TCC to follow up later. Ael Oconnor RN BSN Transitional Shingle Catcher [facility] SURGERY - PROGRESS NOTE Patient Name: Lela Guerrier Admit Date: [id number] : 1950 AGE: 74 y.o. GENDER: male == TODAY'S ASSESSMENT AND PLAN OF CARE: 74 y.o. male with pmx of RA, COPD, prostate ca, bladder ca, CAD, PAD, BPH, HTN, GERD, colon ca, AAA, PAD, ileal conduit, cystectomy, prostatectomy, s/p peripheral artery angioplasty, s/p colectomy presented to OSH with abdominal pain nausea, emesis. CT concerning for SBO. Went to OR with ACS on 04/30 for ex lap and lysis of adhesions. NG out, feeling mild nausea, no vomiting. Having flatus and BM. Concerned about whether he is getting enough pain medication. Neuro - pain control with FELT HANGER, plan to transition to PO meds if tolerating liquids CV: Hx of HTN, CAD, AAA - q4h vitals - MAP>60 - holding home plavix - holding home lisinopril, amlodipine, statin while NPO Pulm - maintain O2>92 % - PRN albuterol GI: - clear diet - ctm for n/v - Protein Calorie Malnutrition: PICC line, TPN at goal - Continue Reglan for GI motility - bisacodyl suppository : Acute Kidney Injury- non oliguric - creat 1.44 yesterday, ct to trend - avoid nephrotoxins, optimum resuscitation - mIVFs - daily RFP - replete electrolytes PRN Heme: acute blood loss anemia: asymptomatic - Transfusion for Hgb <7 Endo: No hx of DM Stress hyperglycemia - Supplemental insulin while on TPN ID: Complicated UTI Cultures grew Enterococcus faecalis sensitive to Unasyn - Unasyn for 14days (end date 05/13) - Trend WBC DVT Proph: - SCDs, SQH DVT: SCDs, SQH Dispo: Continue RNF Patient seen and plans discussed with Chief Resident Dr. STEPHANIE [place], PGY-[address] Andre. Brenna Ku MD PGY-1 Acute Care Surgery [id number] == CHIEF COMPLAINT / EVENTS LAST 24HRS / HPI: Went to OR with ACS on 04/30 for ex lap and lysis of adhesions. Patient tolerated procedure well. NAEON. Pt feeling mild nausea, no vomiting. Having BM, voiding. MEDICAL HISTORY / ROS: Admission history and ROS reviewed. Pertinent changes as follows: NA PHYSICAL EXAM: Heart Rate: [76-95] Temp: [36.2 C (97.2 F)-37.1 C (98.8 F)] Resp: [16-18] BP: (145-170)/(58-74) Weight: [56.3 kg (124 lb 1.9 oz)] SpO2: [93 %-96 %] Physical Exam Constitutional: Appearance: Normal appearance. Eyes: Extraocular Movements: Extraocular movements intact. Cardiovascular: Comments: Non cyanotic Pulmonary: Comments: Non labored, good chest expansion Abdominal: Comments: Appropriately tender abdomen, nondistended, soft. Midline incision closed with edd. CDI. Genitourinary: Comments: Ileal conduit in place- stoma pink and functioning yellow urine Musculoskeletal: General: Normal range of motion. Skin: General: Skin is warm and dry. Neurological: Mental Status: He is alert and oriented to person, place, and time. Psychiatric: Behavior: Behavior normal. IMAGING SUMMARY: (summary of new imaging findings, not a copy of dictation) No new LABS: Results from last 7 days Lab Units 05/06/24 0823 05/05/24 0913 05/04/24 1212 WBC AUTO x10*3/uL 7.4 8.7 7.9 HEMOGLOBIN g/dL 7.7* 8.0* 8.3* HEMATOCRIT % 25.7* 25.6* 26.8* PLATELETS AUTO x10*3/uL 288 302 300 Results from last 7 days Lab Units 05/06/24 0823 05/05/24 0913 05/04/24 1213 05/02/24 0818 SODIUM mmol/L 143 143 141 143 POTASSIUM mmol/L 4.0 4.3 3.9 3.4* CHLORIDE mmol/L 108* 108* 109* 104 CO2 mmol/L 27 27 25 31 BUN mg/dL 45* 41* 43* 71* CREATININE mg/dL 1.44* 1.25 1.26 1.96* CALCIUM mg/dL 7.6* 7.7* 7.9* 7.4* ALK PHOS U/L -- -- -- 77 ALT U/L -- -- -- 26 AST U/L -- -- -- 18 GLUCOSE mg/dL 126* 98 113* 151* Results from last 7 days Lab Units 04/30/24 1110 POCT PH, ARTERIAL pH 7.41 POCT PCO2, ARTERIAL mm Hg 51* POCT PO2, ARTERIAL mm Hg 64* POCT HCO3 CALCULATED, ARTERIAL mmol/L 32.3* POCT BASE EXCESS, ARTERIAL mmol/L 6.8* I have reviewed all medications, laboratory results, and imaging pertinent for today's encounter. Associated attestation - Seda García DO - 05/07/2024 2:06 PM EDT I have seen and evaluated the patient, reviewed the labs and imaging, and discussed the patient with the multidisciplinary team. I have edited the note and/ or placed an addendum below. I agree with assessment and plan as documented. Extensive conversation had with pt this am as he was angry his FELT HANGER was being weaned. His NG has been removed, he will be started on PO regimen with plan to discontinue the FELT HANGER today. He states he takes tylenol#4 at home for chronic pain. We agreed to start multimodal pain regimen with oxycodone this afternoon and stop FELT HANGER later. Pt with addictive language during conversation. Offered pain consult and he refused. Start PO bowel regimen, encourage OOB. Start CLD and advance as able [facility] ACUTE CARE SURGERY - PROGRESS NOTE Patient Name: Lela Guerrier Admit Date: [id number] : 1950 AGE: 74 y.o. GENDER: male == TODAY'S ASSESSMENT AND PLAN OF CARE: 74 y.o. male with pmx of RA, COPD, prostate ca, bladder ca, CAD, PAD, BPH, HTN, GERD, colon ca, AAA, PAD, ileal conduit, cystectomy, prostatectomy, s/p peripheral artery angioplasty, s/p colectomy presented to OSH with abdominal pain nausea, emesis. CT concerning for SBO. Went to OR with ACS on 04/30 for ex lap and lysis of adhesions. [place] trial today with 150 output in 6hrs. Feeling well today. Pain controlled. Bmx2 overnight, reporting bloating. Neuro - pain control with FELT HANGER CV: Hx of HTN, CAD, AAA - q4h vitals - MAP>60 - holding home plavix - holding home lisinopril, amlodipine, statin while NPO Pulm - maintain O2>92 % - PRN albuterol GI: - NGT removed today - NPO, sips - ctm for n/v - Protein Calorie Malnutrition: PICC line, TPN at goal - Continue Reglan for GI motility - bisacodyl suppository : Acute Kidney Injury- non oliguric - creat downtrending (1.96 from 2.21), ct to trend - avoid nephrotoxins, optimum resuscitation - Strict I&Os - mIVFs - daily RFP - replete electrolytes PRN Heme: acute blood loss anemia: asymptomatic - Transfusion for Hgb <7 Endo: No hx of DM Stress hyperglycemia - Supplemental insulin while on TPN ID: Complicated UTI Cultures grew Enterococcus faecalis sensitive to Unasyn - Unasyn for 14days - Trend WBC DVT Proph: - SCDs, SQH DVT: SCDs, SQH Dispo: Continue RNF Patient seen and plans discussed with Chief Resident Dr. STEPHANIE [place], PGY-[address] Andre. Brenna Ku MD PGY-1 Acute Care Surgery [id number] == CHIEF COMPLAINT / EVENTS LAST 24HRS / HPI: Went to OR with ACS on 04/30 for ex lap and lysis of adhesions. Patient tolerated procedure well. [place] trial with 150 output over 6hrs. OOB today. NAEON MEDICAL HISTORY / ROS: Admission history and ROS reviewed. Pertinent changes as follows: NA PHYSICAL EXAM: Heart Rate: [83-95] Temp: [36.3 C (97.4 F)-37.1 C (98.8 F)] Resp: [16-18] BP: (108-158)/(65-76) Weight: [59 kg (130 lb 1.1 oz)] SpO2: [93 %-97 %] Physical Exam Constitutional: Appearance: Normal appearance. Eyes: Extraocular Movements: Extraocular movements intact. Cardiovascular: Comments: Non cyanotic Pulmonary: Comments: Non labored, good chest expansion Abdominal: Comments: Appropriately tender abdomen, nondistended, soft. Midline incision closed with edd. CDI. Genitourinary: Comments: Ileal conduit in place- stoma pink and functioning yellow urine Musculoskeletal: General: Normal range of motion. Skin: General: Skin is warm and dry. Neurological: Mental Status: He is alert and oriented to person, place, and time. Psychiatric: Behavior: Behavior normal. IMAGING SUMMARY: (summary of new imaging findings, not a copy of dictation) No new LABS: Results from last 7 days Lab Units 05/06/24 0823 05/05/24 0913 05/04/24 1212 WBC AUTO x10*3/uL 7.4 8.7 7.9 HEMOGLOBIN g/dL 7.7* 8.0* 8.3* HEMATOCRIT % 25.7* 25.6* 26.8* PLATELETS AUTO x10*3/uL 288 302 300 Results from last 7 days Lab Units 04/30/24 0540 APTT seconds 29 INR 1.0 Results from last 7 days Lab Units 05/06/24 0823 05/05/24 0913 05/04/24 1213 05/02/24 0818 SODIUM mmol/L 143 143 141 143 POTASSIUM mmol/L 4.0 4.3 3.9 3.4* CHLORIDE mmol/L 108* 108* 109* 104 CO2 mmol/L 27 27 25 31 BUN mg/dL 45* 41* 43* 71* CREATININE mg/dL 1.44* 1.25 1.26 1.96* CALCIUM mg/dL 7.6* 7.7* 7.9* 7.4* ALK PHOS U/L -- -- -- 77 ALT U/L -- -- -- 26 AST U/L -- -- -- 18 GLUCOSE mg/dL 126* 98 113* 151* Results from last 7 days Lab Units 04/30/24 1110 04/30/24 0835 POCT PH, ARTERIAL pH 7.41 7.46* POCT PCO2, ARTERIAL mm Hg 51* 48* POCT PO2, ARTERIAL mm Hg 64* 227* POCT HCO3 CALCULATED, ARTERIAL mmol/L 32.3* 34.1* POCT BASE EXCESS, ARTERIAL mmol/L 6.8* 9.2* I have reviewed all medications, laboratory results, and imaging pertinent for today's encounter. Associated attestation - Seda García DO - 05/07/2024 8:36 AM EDT I have seen and evaluated the patient, reviewed the labs and imaging, and discussed the patient with the team. I have edited the note and/ or placed an addendum below. I agree with assessment and plan as documented. FELT HANGER- 10mg dilaudid over last 2 shifts On TPN NG to gravity, will remove later if output appropriate SCDs, OOB Physical Therapy Physical Therapy Treatment Patient Name: Lela Guerrier Today's Date: 05/06/2024 Time Calculation Start Time: 1003 Stop Time: 1035 Time Calculation (min): 32 min Assessment/Plan PT Assessment End of Session Communication: Bedside nurse Assessment Comment: Pt tolerated PT session well able to progress ambulation within room. Pt slightly impulsive, requires increased cues for safety and line management. Pt continues to remain appropriate for High intensity PT upon D/C from hospital. End of Session Patient Position: Up in chair, Alarm off, not on at start of session ( present) PT Plan Inpatient/Swing Bed or Outpatient: Inpatient PT Plan Treatment/Interventions: Bed mobility, Transfer training, Gait training, Stair training, Balance training, Strengthening, Endurance training, Therapeutic exercise, Range of motion, Therapeutic activity, Home exercise program, Positioning PT Plan: Ongoing PT PT Frequency: 5 times per week PT Discharge Recommendations: High intensity level of continued care Equipment Recommended upon Discharge: Wheeled walker PT Recommended Transfer Status: Assist x1 PT - OK to Discharge: Yes General Visit Information: PT Visit PT Received On: 05/06/24 General Missed Visit: No Missed Visit Reason: (n/a) Family/Caregiver Present: Yes Caregiver Feedback: present Prior to Session Communication: Bedside nurse Patient Position Received: Bed, 3 rail up, Alarm on General Comment: Pt supine in bed, agreeable to work with PT. Subjective Precautions: Precautions Medical Precautions: Fall precautions, Abdominal precautions Post-Surgical Precautions: Abdominal surgery precautions Precautions Comment: FELT HANGER pump Vital Signs: Vital Signs Heart Rate: (110-119 with mobility,) Objective Pain: Pain Assessment Pain Assessment: 0-10 0-10 (Numeric) Pain Score: 0 - No pain Cognition: Cognition Overall Cognitive Status: Within Functional Limits Activity Tolerance: Activity Tolerance Endurance: Tolerates 10 - 20 min exercise with multiple rests Treatments: Therapeutic Exercise Therapeutic Exercise Performed: Yes Therapeutic Exercise Activity 1: Supine: AP, QS, HS, SAQ, Hip ABD x10 BLE Bed Mobility Bed Mobility: Yes Bed Mobility 1 Bed Mobility 1: Supine to sitting Level of Assistance 1: Minimum assistance, Minimal verbal cues Bed Mobility Comments 1: Cues for sequencing, assist with line management. Ambulation/Gait Training Ambulation/Gait Training Performed: Yes Ambulation/Gait Training 1 Surface 1: Level tile Device 1: Rolling walker Assistance 1: Moderate assistance, Moderate verbal cues Quality of Gait 1: Wide base of support, Diminished heel strike, Decreased step length (Decreased yuliya, unsteady, decreased endurance,) Comments/Distance (ft) 1: x10ft, increased verbal cues and assist for sequencing and walker management. Pt reports increased fatigue. Transfers Transfer: Yes Transfer 1 Transfer From 1: Bed to Transfer to 1: Stand Technique 1: Sit to stand Transfer Device 1: Walker Transfer Level of Assistance 1: Minimum assistance, Minimal verbal cues Trials/Comments 1: x2 trials, cues for hand placement Transfers 2 Transfer From 2: Stand to Transfer to 2: Sit Technique 2: Stand to sit Transfer Device 2: Walker Transfer Level of Assistance 2: Minimum assistance, Moderate verbal cues Trials/Comments 2: x2 trials, increased verbal cues for alignment and safe hand placement to transition to seated. Stairs Stairs: No Outcome Measures: [facility] Basic Mobility Turning from your back to your side while in a flat bed without using bedrails: A little Moving from lying on your back to sitting on the side of a flat bed without using bedrails: A little Moving to and from bed to chair (including a wheelchair): A little Standing up from a chair using your arms (e.g. wheelchair or bedside chair): A little To walk in hospital room: A lot Climbing 3-5 steps with railing: A lot Basic Mobility - Total Score: 16 Education Documentation Precautions, taught by Morena Moon PTA at 05/06/2024 11:19 AM. Learner: Patient Readiness: Acceptance Method: Explanation Response: Verbalizes Understanding, Needs Reinforcement Body Mechanics, taught by Morena Moon PTA at 05/06/2024 11:19 AM. Learner: Patient Readiness: Acceptance Method: Explanation Response: Verbalizes Understanding, Needs Reinforcement Mobility Training, taught by Morena Moon PTA at 05/06/2024 11:19 AM. Learner: Patient Readiness: Acceptance Method: Explanation Response: Verbalizes Understanding, Needs Reinforcement Education Comments No comments found. OP EDUCATION: Encounter Problems Encounter Problems (Active) Mobility STG - Patient will ambulate >/= 250 ft with Nicholas and FWW (Progressing) Start: 05/03/24 Expected End: 05/17/24 STG - Patient will ascend and descend a flight of stairs Nicholas (Progressing) Start: 05/03/24 Expected End: 05/17/24 PT Transfers STG - Transfer from bed to chair Nicholas and FWW (Progressing) Start: 05/03/24 Expected End: 05/17/24 STG - Patient will perform bed mobility Nicholas (Progressing) Start: 05/03/24 Expected End: 05/17/24 STG - Patient will transfer sit to and from stand Nicholas and FWW (Progressing) Start: 05/03/24 Expected End: 05/17/24 Pain - Adult 05/06/24 at 11:20 AM Morena Moon PTA Rehab Office: [phone] Transitional Shingle Catcher Note: Patient discussed in morning rounds, per medical team (ACS) patient is not medically ready, pending return of bowel function. Discharge dispo: Patient evaluated by therapy team rec High Intensity. TCC to meet with patient and family to discuss therapy recommendations and discharge planning. Ale Oconnor RN BSN Transitional Shingle Catcher UPDATE 05/06/2024 11:23am TCC met with patient and patient's to discuss therapy recs and provide list for choices. Patient and family expressed understanding and agreeable to AR post discharge. Patient and family to review list for choices. Ale Oconnor RN BSN Transitional Shingle Catcher [facility] ACUTE CARE SURGERY - PROGRESS NOTE Patient Name: Lela Guerrier Admit Date: [id number] : 1950 AGE: 74 y.o. GENDER: male == TODAY'S ASSESSMENT AND PLAN OF CARE: 74 y.o. male with pmx of RA, COPD, prostate ca, bladder ca, CAD, PAD, BPH, HTN, GERD, colon ca, AAA, PAD, ileal conduit, cystectomy, prostatectomy, s/p peripheral artery angioplasty, s/p colectomy presented to OSH with abdominal pain nausea, emesis. CT concerning for SBO. Went to OR with ACS on 04/30 for ex lap and lysis of adhesions. NGT output continues to downtrend. No ROBF yet, reporting some bloating. Feeling well today. Pain controlled Neuro - pain control with FELT HANGER CV: Hx of HTN, CAD, AAA - q4h vitals - MAP>60 - holding home plavix - holding home lisinopril, amlodipine, statin while NPO Pulm - maintain O2>92 % - PRN albuterol GI: - NGT to LIWS, cautious with removal as patient has had high volume output and prolonged obstructive course - NPO, ice chips, gum for comfort - ctm NG output - Protein Calorie Malnutrition: PICC line, TPN at goal - Continue Reglan for GI motility - bisacodyl suppository : Acute Kidney Injury- non oliguric - creat downtrending (1.96 from 2.21), ct to trend - avoid nephrotoxins, optimum resuscitation - Strict I&Os - mIVFs - daily RFP - replete electrolytes PRN Heme: acute blood loss anemia: asymptomatic - Transfusion for Hgb <7 Endo: No hx of DM Stress hyperglycemia - Supplemental insulin while on TPN ID: Complicated UTI Cultures grew Enterococcus faecalis sensitive to Unasyn - Unasyn for 14days - Trend WBC DVT Proph: - SCDs, SQH DVT: SCDs, SQH Dispo: Continue RNF Patient seen and plans discussed with Attending Physician Dr. Larios. Brenna Ku MD PGY-1 Acute Care Surgery [id number] == CHIEF COMPLAINT / EVENTS LAST 24HRS / HPI: Went to OR with ACS on 04/30 for ex lap and lysis of adhesions. Patient tolerated procedure well. Systolics in the 170s, afebrile. NGT with less output overnight, thin, green. Abdomen tender. MEDICAL HISTORY / ROS: Admission history and ROS reviewed. Pertinent changes as follows: NA PHYSICAL EXAM: Heart Rate: [69-97] Temp: [36.3 C (97.3 F)-37.2 C (99 F)] Resp: [16-18] BP: (153-181)/(63-84) Weight: [57.2 kg (126 lb 1.7 oz)] SpO2: [94 %-97 %] Physical Exam Constitutional: Appearance: Normal appearance. Eyes: Extraocular Movements: Extraocular movements intact. Cardiovascular: Comments: Non cyanotic Pulmonary: Comments: Non labored, good chest expansion Abdominal: Comments: Appropriately tender abdomen, nondistended, soft. NGT remains in place. Midline incision closed with edd. CDI. Genitourinary: Comments: Ileal conduit in place- stoma pink and functioning yellow urine Musculoskeletal: General: Normal range of motion. Skin: General: Skin is warm and dry. Neurological: Mental Status: He is alert and oriented to person, place, and time. Psychiatric: Behavior: Behavior normal. IMAGING SUMMARY: (summary of new imaging findings, not a copy of dictation) No new LABS: Results from last 7 days Lab Units 05/05/24 0913 05/04/24 1212 05/03/24 0827 WBC AUTO x10*3/uL 8.7 7.9 8.3 HEMOGLOBIN g/dL 8.0* 8.3* 8.1* HEMATOCRIT % 25.6* 26.8* 26.6* PLATELETS AUTO x10*3/uL 302 300 302 Results from last 7 days Lab Units 04/30/24 0540 APTT seconds 29 INR 1.0 Results from last 7 days Lab Units 05/05/24 0913 05/04/24 1213 05/02/24 0818 SODIUM mmol/L 143 141 143 POTASSIUM mmol/L 4.3 3.9 3.4* CHLORIDE mmol/L 108* 109* 104 CO2 mmol/L 27 25 31 BUN mg/dL 41* 43* 71* CREATININE mg/dL 1.25 1.26 1.96* CALCIUM mg/dL 7.7* 7.9* 7.4* ALK PHOS U/L -- -- 77 ALT U/L -- -- 26 AST U/L -- -- 18 GLUCOSE mg/dL 98 113* 151* Results from last 7 days Lab Units 04/30/24 1110 04/30/24 0835 POCT PH, ARTERIAL pH 7.41 7.46* POCT PCO2, ARTERIAL mm Hg 51* 48* POCT PO2, ARTERIAL mm Hg 64* 227* POCT HCO3 CALCULATED, ARTERIAL mmol/L 32.3* 34.1* POCT BASE EXCESS, ARTERIAL mmol/L 6.8* 9.2* I have reviewed all medications, laboratory results, and imaging pertinent for today's encounter. [facility] ACUTE CARE SURGERY - PROGRESS NOTE Patient Name: Lela Guerrier Admit Date: [id number] : 1950 AGE: 74 y.o. GENDER: male == TODAY'S ASSESSMENT AND PLAN OF CARE: 74 y.o. male with pmx of RA, COPD, prostate ca, bladder ca, CAD, PAD, BPH, HTN, GERD, colon ca, AAA, PAD, ileal conduit, cystectomy, prostatectomy, s/p peripheral artery angioplasty, s/p colectomy presented to OSH with abdominal pain nausea, emesis. CT concerning for SBO. Went to OR with ACS on 04/30 for ex lap and lysis of adhesions. NGT output continues to downtrend. No ROBF yet, reporting some bloating. Feeling well today. Pt frustrated with his slow course. Pain somewhat controlled. Neuro - pain control with FELT HANGER CV: Hx of HTN, CAD, AAA - q4h vitals - MAP>60 - holding home plavix - holding home lisinopril, amlodipine, statin while NPO Pulm - maintain O2>92 % - PRN albuterol GI: - NGT to LIWS, cautious with removal as patient has had high volume output and prolonged obstructive course - NPO, ice chips for comfort - ctm NG output - Protein Calorie Malnutrition: PICC line, TPN at goal - Continue Reglan for GI motility - LR changed to NS at 50ml/hr - bisacodyl suppository : Acute Kidney Injury- non oliguric - creat downtrending (1.96 from 2.21), ct to trend - avoid nephrotoxins, optimum resuscitation - Strict I&Os - mIVFs - daily RFP - replete electrolytes PRN Heme: acute blood loss anemia: asymptomatic - 1u of blood today - Transfusion for Hgb <7 Endo: No hx of DM Stress hyperglycemia - Supplemental insulin while on TPN ID: Complicated UTI Cultures grew Enterococcus faecalis sensitive to Unasyn - Unasyn for 14days - Trend WBC DVT Proph: - SCDs, SQH DVT: SCDs, SQH Dispo: Continue RNF Patient seen and plans discussed with Attending Physician Dr. Larios. Brenna Ku MD PGY-1 Acute Care Surgery [id number] == CHIEF COMPLAINT / EVENTS LAST 24HRS / HPI: Went to OR with ACS on 04/30 for ex lap and lysis of adhesions. Patient tolerated procedure well. Systolics in the 170s, afebrile. NGT with less output overnight, thin, green. Abdomen tender. MEDICAL HISTORY / ROS: Admission history and ROS reviewed. Pertinent changes as follows: NA PHYSICAL EXAM: Heart Rate: [83-95] Temp: [36.2 C (97.2 F)-37.2 C (99 F)] Resp: [16-18] BP: (171-180)/(76-93) SpO2: [94 %-97 %] Physical Exam Constitutional: Appearance: Normal appearance. Eyes: Extraocular Movements: Extraocular movements intact. Cardiovascular: Comments: Non cyanotic Pulmonary: Comments: Non labored, good chest expansion Abdominal: Comments: Appropriately tender abdomen, nondistended, soft. NGT remains in place. Midline incision closed with edd. CDI. Genitourinary: Comments: Ileal conduit in place- stoma pink and functioning yellow urine Musculoskeletal: General: Normal range of motion. Skin: General: Skin is warm and dry. Neurological: Mental Status: He is alert and oriented to person, place, and time. Psychiatric: Behavior: Behavior normal. IMAGING SUMMARY: (summary of new imaging findings, not a copy of dictation) No new LABS: Results from last 7 days Lab Units 05/03/24 0827 05/02/24 0818 05/01/24 0439 WBC AUTO x10*3/uL 8.3 9.9 10.0 HEMOGLOBIN g/dL 8.1* 6.7* 7.7* HEMATOCRIT % 26.6* 21.2* 24.2* PLATELETS AUTO x10*3/uL 302 269 267 Results from last 7 days Lab Units 04/30/24 0540 APTT seconds 29 INR 1.0 Results from last 7 days Lab Units 05/02/24 0818 05/01/24 0811 04/30/24 1111 SODIUM mmol/L 143 142 145 POTASSIUM mmol/L 3.4* 3.9 3.5 CHLORIDE mmol/L 104 101 102 CO2 mmol/L 31 34* 32 BUN mg/dL 71* 80* 60* CREATININE mg/dL 1.96* 2.21* 2.03* CALCIUM mg/dL 7.4* 7.2* 7.3* ALK PHOS U/L 77 -- -- ALT U/L 26 -- -- AST U/L 18 -- -- GLUCOSE mg/dL 151* 132* 253* Results from last 7 days Lab Units 04/30/24 1110 04/30/24 0835 POCT PH, ARTERIAL pH 7.41 7.46* POCT PCO2, ARTERIAL mm Hg 51* 48* POCT PO2, ARTERIAL mm Hg 64* 227* POCT HCO3 CALCULATED, ARTERIAL mmol/L 32.3* 34.1* POCT BASE EXCESS, ARTERIAL mmol/L 6.8* 9.2* I have reviewed all medications, laboratory results, and imaging pertinent for today's encounter. 05/03/24 1100 Urostomy RLQ Placement Date/Time: 04/19/24 0700 Earliest Known Present: 04/19/24 Location: RLQ Stomal Appliance 2 piece;Changed Site/Stoma Assessment Clean;Intact;Red Stoma Size (cm) (20mm) Peristomal Assessment Clean;Intact Treatment Pouch change;Site care Ostomy type: Urostomy size: 20mm color: red protruding: budded Johnny: none Functioning: clear yellow urine Mucocutaneous junction: intact Peristomal skin: clean and intact Pouchin piece Rebekah soft convex wafer and urostomy pouch Ostomy Education: Patient and are independent with the care. Extra supplies brought to the bedside for the patient. Plan: assess stoma/pouching Physical Therapy Physical Therapy Evaluation Patient Name: Lela Guerrier Today's Date: 05/03/2024 Time Calculation Start Time: 1434 Stop Time: 1450 Time Calculation (min): 15 min Assessment/Plan PT Assessment PT Assessment Results: Decreased strength, Decreased endurance, Decreased mobility, Impaired balance, Pain, Decreased safety awareness Rehab Prognosis: Good Evaluation/Treatment Tolerance: Patient tolerated treatment well Medical Staff Made Aware: Yes End of Session Communication: Bedside nurse Assessment Comment: pt demonstrates decreased strength, balance and mobility. pt benefits from conitnued PT to address deficits. End of Session Patient Position: Up in chair, Alarm on IP OR SWING BED PT PLAN Inpatient or Swing Bed: Inpatient PT Plan Treatment/Interventions: Bed mobility, Transfer training, Gait training, Stair training, Balance training, Strengthening, Endurance training, Therapeutic exercise, Range of motion, Therapeutic activity, Home exercise program, Positioning PT Plan: Ongoing PT PT Frequency: 5 times per week PT Discharge Recommendations: High intensity level of continued care Equipment Recommended upon Discharge: Wheeled walker PT Recommended Transfer Status: Assist x1 PT - OK to Discharge: Yes Subjective General Visit Information: General Reason for Referral: Presented to OSH with abdominal pain nausea, emesis. Found to have SBO, ex lap on 04/30 Past Medical History Relevant to Rehab: RA, COPD, prostate ca, bladder ca, CAD, PAD, BPH, HTN, GERD, colon ca, AAA, PAD, ileal conduit, cystectomy, prostatectomy, s/p peripheral artery angioplasty, s/p colectomy Missed Visit: Yes Missed Visit Reason: (pts hemoglobin decreased from 7.7 to 6.7. will hold PT until medically appropriate) Family/Caregiver Present: Yes Caregiver Feedback: present Prior to Session Communication: Bedside nurse Patient Position Received: Bed, 3 rail up, Alarm off, not on at start of session General Comment: pt supine, alert and agreeable for PT. NGT to suction Home Living: Home Living Type of Home: House Lives With: Spouse Home Adaptive Equipment: Walker rolling or standard Home Layout: Able to live on main level with bedroom/bathroom, Two level, Full bath main level, Stairs to alternate level with rails Alternate Level Stairs-Rails: Right Alternate Level Stairs-Number of Steps: 12 Home Access: Stairs to enter with rails Entrance Stairs-Rails: Right Entrance Stairs-Number of Steps: 2 Bathroom Shower/Tub: Tub/shower unit Bathroom Toilet: Standard Bathroom Equipment: Shower chair with back Prior Level of Function: Prior Function Per Pt/Caregiver Report Level of [place]: Independent with ADLs and functional transfers, Independent with homemaking with ambulation ADL Assistance: Independent Homemaking Assistance: Independent Ambulatory Assistance: Independent Vocational: Retired Leisure: None reported Precautions: Precautions Medical Precautions: Fall precautions, Abdominal precautions Post-Surgical Precautions: Abdominal surgery precautions Precautions Comment: FELT HANGER pump Objective Pain: Pain Assessment Pain Assessment: 0-10 0-10 (Numeric) Pain Score: 5 - Moderate pain Pain Location: Abdomen Cognition: Cognition Overall Cognitive Status: Within Functional Limits Orientation Level: Oriented X4 General Assessments: Activity Tolerance Endurance: Tolerates 10 - 20 min exercise with multiple rests Sensation Light Touch: No apparent deficits Perception Inattention/Neglect: Appears intact Coordination Movements are Fluid and Coordinated: Yes Postural Control Postural Control: Within Functional Limits Static Sitting Balance Static Sitting-Balance Support: No upper extremity supported Static Sitting-Level of Assistance: Close supervision Dynamic Sitting Balance Dynamic Sitting-Balance Support: No upper extremity supported Dynamic Sitting-Balance: Trunk control activities Dynamic Sitting-Comments: SBA-CGA Static Standing Balance Static Standing-Balance Support: Bilateral upper extremity supported Static Standing-Level of Assistance: Minimum assistance (arm and arm) Dynamic Standing Balance Dynamic Standing-Balance Support: Bilateral upper extremity supported Dynamic Standing-Balance: Turning Dynamic Standing-Comments: modA Functional Assessments: Bed Mobility Bed Mobility: Yes Bed Mobility 1 Bed Mobility 1: Supine to sitting Level of Assistance 1: Moderate assistance, Moderate verbal cues Bed Mobility Comments 1: VC for log roll Transfers Transfer: Yes Transfer 1 Transfer From 1: Bed to Transfer to 1: Chair with arms Technique 1: Sit to stand, Stand to sit Transfer Device 1: (arm and arm) Transfer Level of Assistance 1: Moderate assistance, Moderate verbal cues Trials/Comments 1: x1 Ambulation/Gait Training Ambulation/Gait Training Performed: Yes Ambulation/Gait Training 1 Surface 1: Level tile Device 1: (arm and arm) Assistance 1: Moderate assistance, Moderate verbal cues Quality of Gait 1: Wide base of support, Inconsistent stride length, Decreased step length, Antalgic Comments/Distance (ft) 1: ~4ft; unsteady Stairs Stairs: No Extremity/Trunk Assessments: RLE RLE : Within Functional Limits LLE LLE : Within Functional Limits Outcome Measures: [facility] Basic Mobility Turning from your back to your side while in a flat bed without using bedrails: A lot Moving from lying on your back to sitting on the side of a flat bed without using bedrails: A lot Moving to and from bed to chair (including a wheelchair): A lot Standing up from a chair using your arms (e.g. wheelchair or bedside chair): A lot To walk in hospital room: A lot Climbing 3-5 steps with railing: Total Basic Mobility - Total Score: 11 Encounter Problems Encounter Problems (Active) Mobility STG - Patient will ambulate >/= 250 ft with Nicholas and FWW (Progressing) Start: 05/03/24 Expected End: 05/17/24 STG - Patient will ascend and descend a flight of stairs Nicholas (Progressing) Start: 05/03/24 Expected End: 05/17/24 PT Transfers STG - Transfer from bed to chair Nicholas and FWW (Progressing) Start: 05/03/24 Expected End: 05/17/24 STG - Patient will perform bed mobility Nicholas (Progressing) Start: 05/03/24 Expected End: 05/17/24 STG - Patient will transfer sit to and from stand Nicholas and FWW (Progressing) Start: 05/03/24 Expected End: 05/17/24 Pain - Adult Education Documentation Precautions, taught by Alba Richey, PT at 05/03/2024 3:08 PM. Learner: Patient Readiness: Acceptance Method: Explanation Response: Verbalizes Understanding Body Mechanics, taught by Alba Richey, PT at 05/03/2024 3:08 PM. Learner: Patient Readiness: Acceptance Method: Explanation Response: Verbalizes Understanding Mobility Training, taught by Alba Richey PT at 05/03/2024 3:08 PM. Learner: Patient Readiness: Acceptance Method: Explanation Response: Verbalizes Understanding Education Comments No comments found. 05/03/24 at 3:10 PM - Alba Richey PT [facility] ACUTE CARE SURGERY - PROGRESS NOTE Patient Name: Lela Guerrier Admit Date: [id number] : 1950 AGE: 74 y.o. GENDER: male == TODAY'S ASSESSMENT AND PLAN OF CARE: 74 y.o. male with pmx of RA, COPD, prostate ca, bladder ca, CAD, PAD, BPH, HTN, GERD, colon ca, AAA, PAD, ileal conduit, cystectomy, prostatectomy, s/p peripheral artery angioplasty, s/p colectomy presented to OSH with abdominal pain nausea, emesis. CT concerning for SBO. Went to OR with ACS on 04/30 for ex lap and lysis of adhesions. NGT replaced over night. He is passing gas but no BM yet. Neuro - pain control with FELT HANGER CV: Hx of HTN, CAD, AAA - q4h vitals - MAP>60 - holding home plavix - holding home lisinopril, amlodipine, statin while NPO Pulm - maintain O2>92 % - PRN albuterol GI: - NGT to LIWS - NPO, ice chips for comfort - ctm NG output - Protein Calorie Malnutrition: PICC line, TPN at goal - Continue Reglan for GI motility - LR changed to NS at 50ml/hr - bisacodyl suppository : Acute Kidney Injury- non oliguric - creat downtrending last creatinine 1.96 - avoid nephrotoxins, optimum resuscitation - Strict I&Os - mIVFs - daily RFP - replete electrolytes PRN Heme: acute blood loss anemia: asymptomatic - 1u on 05/02 - Transfusion for Hgb <7 Endo: No hx of DM Stress hyperglycemia - Supplemental insulin while on TPN ID: Complicated UTI Cultures grew Enterococcus faecalis sensitive to Unasyn - Unasyn for 14days - Trend WBC DVT Proph: - SCDs, SQH DVT: SCDs, SQH Dispo: Continue RNF Patient seen and plans discussed with Chief Resident Dr. STEPHANIE Winston, PGY-[address] Larios. [place] PA-C PGY-1 Acute Care Surgery [id number] == CHIEF COMPLAINT / EVENTS LAST 24HRS / HPI: Went to OR with ACS on 04/30 for ex lap and lysis of adhesions. Patient tolerated procedure well. VSS, afebrile. NGT with less output overnight, thin, green. Abdomen tender, pain somewhat controlled. Dressing from OR removed. MEDICAL HISTORY / ROS: Admission history and ROS reviewed. Pertinent changes as follows: NA PHYSICAL EXAM: Heart Rate: [84-92] Temp: [36.1 C (97 F)-37.7 C (99.9 F)] Resp: [18] BP: (154-186)/(61-81) Weight: [56.2 kg (123 lb 14.4 oz)] SpO2: [94 %-98 %] Physical Exam Constitutional: Appearance: Normal appearance. Eyes: Extraocular Movements: Extraocular movements intact. Cardiovascular: Comments: Non cyanotic Pulmonary: Comments: Non labored, good chest expansion Abdominal: Comments: Appropriately tender abdomen, nondistended, soft. NGT remains in place. Midline incision closed with edd. CDI. Genitourinary: Comments: Ileal conduit in place- stoma pink and functioning yellow urine Musculoskeletal: General: Normal range of motion. Skin: General: Skin is warm and dry. Neurological: Mental Status: He is alert and oriented to person, place, and time. Psychiatric: Behavior: Behavior normal. IMAGING SUMMARY: (summary of new imaging findings, not a copy of dictation) LABS: Results from last 7 days Lab Units 05/03/24 0827 05/02/24 0818 05/01/24 0439 WBC AUTO x10*3/uL 8.3 9.9 10.0 HEMOGLOBIN g/dL 8.1* 6.7* 7.7* HEMATOCRIT % 26.6* 21.2* 24.2* PLATELETS AUTO x10*3/uL 302 269 267 Results from last 7 days Lab Units 04/30/24 0540 APTT seconds 29 INR 1.0 Results from last 7 days Lab Units 05/02/24 0818 05/01/24 0811 04/30/24 1111 SODIUM mmol/L 143 142 145 POTASSIUM mmol/L 3.4* 3.9 3.5 CHLORIDE mmol/L 104 101 102 CO2 mmol/L 31 34* 32 BUN mg/dL 71* 80* 60* CREATININE mg/dL 1.96* 2.21* 2.03* CALCIUM mg/dL 7.4* 7.2* 7.3* GLUCOSE mg/dL 151* 132* 253* Results from last 7 days Lab Units 04/30/24 1110 04/30/24 0835 POCT PH, ARTERIAL pH 7.41 7.46* POCT PCO2, ARTERIAL mm Hg 51* 48* POCT PO2, ARTERIAL mm Hg 64* 227* POCT HCO3 CALCULATED, ARTERIAL mmol/L 32.3* 34.1* POCT BASE EXCESS, ARTERIAL mmol/L 6.8* 9.2* I have reviewed all medications, laboratory results, and imaging pertinent for today's encounter. Nutrition Follow Up Assessment: Nutrition Assessment Reason for Assessment: Dietitian discretion Patient is a 74 y.o. male presenting on admission day 14. S/p SBO. Went to OR with ACS on 04/30 for ex lap and lysis of adhesions. NGT output downtrending. Nutrition History: Food and Nutrient History: Remains on TPN with NGT to suction. Receiving Clinimix E 03/06 @ 83ml/hr with 250ml SMOF lipids daily providing 1920kcal and 100gm protein. Pt getting ice chips for comfort. 2 members of care team at pt's bedside completing pt care. Unable to visually see rate of TPN. Information obtained from flowsheets. Anthropometrics: Height: 170.2 cm (5' 7) Weight: 56.2 kg (123 lb 14.4 oz) BMI (Calculated): 19.4 IBW/kg (Dietitian Calculated): 67.3 kg Weight History: Date/Time Weight 05/03/24 0600 56.2 kg (123 lb 14.4 oz) 05/02/24 0544 58.5 kg (128 lb 15.5 oz) 04/29/24 0600 54.7 kg (120 lb 9.5 oz) 04/28/24 0553 52.1 kg (114 lb 13.8 oz) 04/26/24 0600 55.5 kg (122 lb 5.7 oz) 04/24/24 0556 55.7 kg (122 lb 12.7 oz) 04/23/24 0600 58 kg (127 lb 13.9 oz) 04/22/24 0600 54.5 kg (120 lb 2.4 oz) 04/21/24 0600 56.9 kg (125 lb 7.1 oz) 04/20/24 0600 56.6 kg (124 lb 12.5 oz) 04/19/24 0235 56.9 kg (125 lb 7.1 oz) Admit Weight: 56.9 kg (125 lb 7.1 oz) Weight Change %: Weight History / % Weight Change: wt flux between 52.1-56.9kg over past 2 weeks. Current wt conistent with admission wt. No edema noted at this time Nutrition Focused Physical Exam Findings: defer: pt unavailable - last NFPE on 04/19 Edema: Edema: none Physical Findings: Skin: (abdominal incision) Nutrition Significant Labs: CBC Trend: Results from last 7 days Lab Units 05/02/24 0818 05/01/24 0439 04/30/24 1111 04/30/24 0540 WBC AUTO x10*3/uL 9.9 10.0 13.3* 17.5* RBC AUTO x10*6/uL 2.28* 2.47* 2.67* 2.66* HEMOGLOBIN g/dL 6.7* 7.7* 8.0* 8.5* HEMATOCRIT % 21.2* 24.2* 23.9* 27.3* MCV fL 93 98 90 103* PLATELETS AUTO x10*3/uL 269 267 313 410 , BMP Trend: Results from last 7 days Lab Units 05/02/24 0818 05/01/24 0811 04/30/24 1111 04/28/24 0545 GLUCOSE mg/dL 151* 132* 253* 121* CALCIUM mg/dL 7.4* 7.2* 7.3* 7.8* SODIUM mmol/L 143 142 145 144 POTASSIUM mmol/L 3.4* 3.9 3.5 3.5 CO2 mmol/L 31 34* 32 35* CHLORIDE mmol/L 104 101 102 101 BUN mg/dL 71* 80* 60* 51* CREATININE mg/dL 1.96* 2.21* 2.03* 1.73* , TPN/PPN Labs: Results from last 7 days Lab Units 05/02/24 0818 05/01/24 0811 04/30/24 1111 04/28/24 0545 GLUCOSE mg/dL 151* 132* 253* 121* POTASSIUM mmol/L 3.4* 3.9 3.5 3.5 PHOSPHORUS mg/dL 4.0 5.7* 5.0* 3.3 MAGNESIUM mg/dL 2.23 2.20 1.90 2.21 SODIUM mmol/L 143 142 145 144 CHLORIDE mmol/L 104 101 102 101 Nutrition Specific Medications: Scheduled medications [Held by provider] amLODIPine, 10 mg, oral, Daily ampicillin-sulbactam, 3 g, intravenous, q12h bisacodyl, 10 mg, rectal, Daily fat emulsion fish oil/plant based, 250 mL, intravenous, Daily heparin (porcine), 5,000 Units, subcutaneous, q8h insulin lispro, 0-5 Units, subcutaneous, TID lidocaine, 1 patch, transdermal, Daily [Held by provider] lisinopril, 20 mg, oral, Daily Continuous medications Adult Clinimix Parenteral Nutrition, 83 mL/hr, Last Rate: 83 mL/hr (05/02/242101) HYDROmorphone, sodium chloride 0.9%, 50 mL/hr, Last Rate: 50 mL/hr (05/02/24 0852) PRN medications PRN medications: albuterol, alteplase, benzocaine-menthol, dextrose, dextrose, glucagon, glucagon, ondansetron, phenoL, sodium chloride, white petrolatum I/O: Last BM Date: 04/28/24; Stool Appearance: Loose (04/29/24 0650) Dietary Orders (From admission, onward) Start Ordered 04/26/241821 NPO Diet Except: Ice chips; Effective now Diet effective now Comments: Max 1cup ice chips q8hr Question: Except: Answer: Ice chips 04/26/241822 Estimated Needs: Total Energy Estimated Needs (kCal): (6780-7851) Method for Estimating Needs: 30-35 kcal/kg actual wt Total Protein Estimated Needs (g): 85 g Method for Estimating Needs: 1.5 g/kg actual wt (+) Total Fluid Estimated Needs (mL): (per team) Method for Estimating Needs: per team Nutrition Diagnosis Malnutrition Diagnosis Patient has Malnutrition Diagnosis: Yes Diagnosis Status: (improving- meeting > 75% est energy needs) Malnutrition Diagnosis: Moderate malnutrition related to acute disease or injury As Evidenced by: mild muscle loss and subcutaneous fat loss, oral intake <75% estimated needs over the last 5 days or so. Additional Assessment Information: Pt likely with slim build at baseline-- son in room and able to confirm that pt and him are of similar stature. Nutrition Diagnosis Patient has Nutrition Diagnosis: Yes Diagnosis Status (1): Ongoing Nutrition Diagnosis 1: Altered GI function Related to (1): SBO As Evidenced by (1): SBO, need for TPN Nutrition Interventions/Recommendations Nutrition Prescription: Continue to replete low lytes PRN Clinimix E 15 @ 83ml/hr + 250ml SMOF lipids @ 21ml/hr x 12 hours Obtain LFTs and Triglycerides + monitor weekly TPN provides 2000ml, 1920kcal, 100gm protein Nutrition Interventions: Interventions: Parenteral nutrition/ IV fluids Parenteral Nutrition/IV Fluids: Other (Comment) (continue current regimen) Nutrition Monitoring and Evaluation Food/Nutrient Related History Monitoring Monitoring and Evaluation Plan: Enteral and parenteral nutrition intake Enteral and Parenteral Nutrition Intake: Parenteral nutrition intake Criteria: pt to receive > /= 80% est nutrition needs via TPN Body Composition/Growth/Weight History Monitoring and Evaluation Plan: Weight Criteria: Maintain stable weight Biochemical Data, Medical Tests and Procedures Monitoring and Evaluation Plan: Electrolyte/renal panel, Glucose/endocrine profile Criteria: labs WNL Time Spent (min): 30 minutes [facility] ACUTE CARE SURGERY - PROGRESS NOTE Patient Name: Lela Guerrier Admit Date: [id number] : 1950 AGE: 74 y.o. GENDER: male == TODAY'S ASSESSMENT AND PLAN OF CARE: 74 y.o. male with pmx of RA, COPD, prostate ca, bladder ca, CAD, PAD, BPH, HTN, GERD, colon ca, AAA, PAD, ileal conduit, cystectomy, prostatectomy, s/p peripheral artery angioplasty, s/p colectomy presented to OSH with abdominal pain nausea, emesis. CT concerning for SBO. Went to OR with ACS on 04/30 for ex lap and lysis of adhesions. NGT output downtrending. No ROBF yet, reporting some bloating. Feeling well today. Making urine. Neuro - pain control with FELT HANGER CV: Hx of HTN, CAD, AAA - q4h vitals - MAP>60 - holding home plavix - holding home lisinopril, amlodipine, statin while NPO Pulm - maintain O2>92 % - PRN albuterol GI: - NGT to LIWS - NPO, ice chips for comfort - ctm NG output - Protein Calorie Malnutrition: PICC line, TPN at goal - Continue Reglan for GI motility - LR changed to NS at 50ml/hr - bisacodyl suppository : Acute Kidney Injury- non oliguric - creat downtrending (1.96 from 2.21), ct to trend - avoid nephrotoxins, optimum resuscitation - Strict I&Os - mIVFs - daily RFP - replete electrolytes PRN Heme: acute blood loss anemia: asymptomatic - 1u of blood today - Transfusion for Hgb <7 Endo: No hx of DM Stress hyperglycemia - Supplemental insulin while on TPN ID: Complicated UTI Cultures grew Enterococcus faecalis sensitive to Unasyn - Unasyn for 14days - Trend WBC DVT Proph: - SCDs, SQH DVT: SCDs, SQH Dispo: Continue RNF Patient seen and plans discussed with Chief Resident Dr. STEPHANIE Winston, PGY-[address] Larios. Brenna Ku MD PGY-1 Acute Care Surgery [id number] == CHIEF COMPLAINT / EVENTS LAST 24HRS / HPI: Went to OR with ACS on 04/30 for ex lap and lysis of adhesions. Patient tolerated procedure well. VSS, afebrile. NGT with less output overnight, thin, green. Abdomen tender, pain somewhat controlled. Dressing from OR removed. MEDICAL HISTORY / ROS: Admission history and ROS reviewed. Pertinent changes as follows: NA PHYSICAL EXAM: Heart Rate: [92-106] Temp: [36 C (96.8 F)-37.4 C (99.3 F)] Resp: [16-18] BP: (124-159)/(63-73) Weight: [58.5 kg (128 lb 15.5 oz)] SpO2: [94 %-96 %] Physical Exam Constitutional: Appearance: Normal appearance. Eyes: Extraocular Movements: Extraocular movements intact. Cardiovascular: Comments: Non cyanotic Pulmonary: Comments: Non labored, good chest expansion Abdominal: Comments: Appropriately tender abdomen, nondistended, soft. NGT remains in place. Midline incision closed with edd. CDI. Genitourinary: Comments: Ileal conduit in place- stoma pink and functioning yellow urine Musculoskeletal: General: Normal range of motion. Skin: General: Skin is warm and dry. Neurological: Mental Status: He is alert and oriented to person, place, and time. Psychiatric: Behavior: Behavior normal. IMAGING SUMMARY: (summary of new imaging findings, not a copy of dictation) LABS: Results from last 7 days Lab Units 05/02/24 0818 05/01/24 0439 04/30/24 1111 WBC AUTO x10*3/uL 9.9 10.0 13.3* HEMOGLOBIN g/dL 6.7* 7.7* 8.0* HEMATOCRIT % 21.2* 24.2* 23.9* PLATELETS AUTO x10*3/uL 269 267 313 Results from last 7 days Lab Units 04/30/24 0540 APTT seconds 29 INR 1.0 Results from last 7 days Lab Units 05/02/24 0818 05/01/24 0811 04/30/24 1111 SODIUM mmol/L 143 142 145 POTASSIUM mmol/L 3.4* 3.9 3.5 CHLORIDE mmol/L 104 101 102 CO2 mmol/L 31 34* 32 BUN mg/dL 71* 80* 60* CREATININE mg/dL 1.96* 2.21* 2.03* CALCIUM mg/dL 7.4* 7.2* 7.3* GLUCOSE mg/dL 151* 132* 253* Results from last 7 days Lab Units 04/30/24 1110 04/30/24 0835 POCT PH, ARTERIAL pH 7.41 7.46* POCT PCO2, ARTERIAL mm Hg 51* 48* POCT PO2, ARTERIAL mm Hg 64* 227* POCT HCO3 CALCULATED, ARTERIAL mmol/L 32.3* 34.1* POCT BASE EXCESS, ARTERIAL mmol/L 6.8* 9.2* I have reviewed all medications, laboratory results, and imaging pertinent for today's encounter. Physical Therapy Therapy Communication Note Patient Name: Lela Guerrier Today's Date: 05/02/2024 Discipline: Physical Therapy Missed Visit Reason: Missed Visit Reason: (pts hemoglobin decreased from 7.7 to 6.7. will hold PT until medically appropriate) Missed Time: Attempt 1419 Comment: Occupational Therapy Evaluation and Treatment Patient Name: Lela DESHPANDEN: [id number] Today's Date: 05/02/2024 Room: [facility]8028-A Time Calculation Start Time: 1050 Stop Time: 1121 Time Calculation (min): 31 min Assessment IP OT Assessment OT Assessment: Pt's ability to complete ADLs currently limited by pain, ABD precautions, and deficits in activity tolerance, functional strength, and dynamic balance. He demos ability to complete transfer from bed to chair with Mod A. He is limited by NG tube suction requirement and several PICC/IV lines. Pt requires Mod A for self feeding due to fatigue, functional strength, and coordination deficits. At this time, recommending High Intensity OT services upon discharge to maximize safety and IND. He will benefit fro continued OT while admitted. Prognosis: Good Barriers to Discharge: None Evaluation/Treatment Tolerance: Patient limited by fatigue, Patient limited by pain Medical Staff Made Aware: Yes End of Session Communication: Bedside nurse End of Session Patient Position: Up in chair, Alarm on Plan: Inpatient Plan Treatment Interventions: ADL retraining, Functional transfer training, UE strengthening/ROM, Endurance training, Equipment evaluation/education, Patient/family training, Compensatory technique education OT Frequency: 4 times per week OT Discharge Recommendations: High intensity level of continued care OT Recommended Transfer Status: Moderate assist, Assist of 1 OT - OK to Discharge: Yes OT Assessment OT Assessment Results: Decreased ADL status, Decreased upper extremity strength, Decreased endurance, Decreased safe judgment during ADL, Decreased functional mobility, Decreased IADLs, Decreased gross motor control, Decreased fine motor control Prognosis: Good Barriers to Discharge: None Evaluation/Treatment Tolerance: Patient limited by fatigue, Patient limited by pain Medical Staff Made Aware: Yes Strengths: Support of Caregivers, Housing layout Barriers to Participation: Comorbidities Subjective Current Problem: 1. SBO (small bowel obstruction) (Multi) Case Request Operating Room: Exploration Laparotomy, possible bowel resection, possible ostomy, possible vishnu gastrostomy tube. Case Request Operating Room: Exploration Laparotomy, possible bowel resection, possible ostomy, possible vishnu gastrostomy tube. General: Reason for Referral: Presented to OSH with abdominal pain nausea, emesis. Found to have SBO, ex lap on 04/30 Past Medical History Relevant to Rehab: RA, COPD, prostate ca, bladder ca, CAD, PAD, BPH, HTN, GERD, colon ca, AAA, PAD, ileal conduit, cystectomy, prostatectomy, s/p peripheral artery angioplasty, s/p colectomy Prior to Session Communication: Bedside nurse Patient Position Received: Bed, 3 rail up, Alarm off, not on at start of session Family/Caregiver Present: No General Comment: Pt agreeable to OT session, demos fatigue throughout session and delayed response Precautions: Medical Precautions: Fall precautions Post-Surgical Precautions: Abdominal surgery precautions Pain: Pain Assessment Pain Assessment: 0-10 0-10 (Numeric) Pain Score: 7 Pain Type: Surgical pain Pain Location: Abdomen Pain Interventions: Repositioned Response to Interventions: Best at rest Lines/Tubes/Drains: PICC - Adult 04/19/24 Double lumen Left Basilic vein (Active) Number of days: 12 NG/OG/Feeding Tube Left nostril (Active) Number of days: 19 Urostomy RLQ (Active) Number of days: 13 Objective Cognition: Overall Cognitive Status: Impaired Orientation Level: Oriented X4 Following Commands: Follows one step commands with increased time Safety Judgment: Decreased awareness of need for assistance Cognition Comments: Delayed response to questions throughout session, difficulty with answering home setup questions with accuracy Safety/Judgement: Exceptions to WFL Complex Functional Tasks: Minimal Novel Situations: Minimal Routine Tasks: Minimal Processing Speed: Delayed Home Living: Type of Home: House Lives With: Spouse Home Adaptive Equipment: Walker rolling or standard (I have all of that stuff) Home Layout: Able to live on main level with bedroom/bathroom, Two level, Full bath main level Home Access: (A few) Bathroom Shower/Tub: Tub/shower unit Bathroom Toilet: Standard Bathroom Equipment: Shower chair with back Prior Function: Level of [place]: Independent with ADLs and functional transfers, Independent with homemaking with ambulation ADL Assistance: Independent Homemaking Assistance: Independent Ambulatory Assistance: Independent Vocational: Retired Leisure: None reported IADL History: Homemaking Responsibilities: Yes Meal Prep Responsibility: Primary Laundry Responsibility: Primary Cleaning Responsibility: Primary Bill Paying/Finance Responsibility: Primary Shopping Responsibility: Primary Homemaking Comments: Reports I was pretty self sufficent Current License: Yes Mode of Transportation: Car 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 Leisure and Hobbies: None reported ADL: Eating Assistance: Moderate Eating Deficit: Bringing food to mouth assist Grooming Assistance: Minimal (Anticipated) Bathing Assistance: Moderate (Anticipated) UE Dressing Assistance: Moderate (Anticipated) LE Dressing Assistance: Maximal (Anticipated) Toileting Assistance with Device: Maximal (Anticipated) Activity Tolerance: Endurance: Tolerates 10 - 20 min exercise with multiple rests Balance: Dynamic Standing Balance Dynamic Standing-Balance Support: No upper extremity supported Dynamic Standing-Comments: Mod A Static Sitting Balance Static Sitting-Balance Support: No upper extremity supported, Feet supported Static Sitting-Level of Assistance: Contact guard Static Sitting-Comment/Number of Minutes: EOB Static Standing Balance Static Standing-Balance Support: No upper extremity supported Static Standing-Level of Assistance: Minimum assistance Bed Mobility/Transfers: Bed Mobility/Transfers: Bed Mobility Bed Mobility: Yes Bed Mobility 1 Bed Mobility 1: Supine to sitting Level of Assistance 1: Moderate assistance Bed Mobility Comments 1: Education on log roll technique due to ABD precautions, HOB elevated and use of bed rail, Mod A and Transfers Transfer: Yes Transfer 1 Transfer From 1: Bed to Transfer to 1: Chair with arms Technique 1: Stand pivot Transfer Level of Assistance 1: Moderate assistance Trials/Comments 1: Cues for positioning, Min-Mod A for lifting, Mod A for balance while pivoting IADL's: Homemaking Responsibilities: Yes Meal Prep Responsibility: Primary Laundry Responsibility: Primary Cleaning Responsibility: Primary Bill Paying/Finance Responsibility: Primary Shopping Responsibility: Primary Homemaking Comments: Reports I was pretty self sufficent Current License: Yes Mode of Transportation: Car 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 Leisure and Hobbies: None reported Vision: Vision - Basic Assessment Current Vision: No visual deficits and Sensation: Light Touch: No apparent deficits Strength: Strength Comments: Not formally assessed due to precautions, mild/moderate gross deficits, >3/5 bilateral UEs Perception: Inattention/Neglect: Appears intact Coordination: Movements are Fluid and Coordinated: No Upper Body Coordination: FMC and GMC bilaterally - difficulty with pressing FELT HANGER button accurately Hand Function: Hand Function Gross Grasp: Functional Coordination: Impaired Extremities: RUE RUE : Exceptions to WFL (Anticipate approx 4/5 grossly), LUE LUE: Exceptions to WFL (Anticipate approx 4/5 grossly), , and Outcome Measures: [facility] Daily Activity Putting on and taking off regular lower body clothing: A lot Bathing (including washing, rinsing, drying): A lot Putting on and taking off regular upper body clothing: A lot Toileting, which includes using toilet, bedpan or urinal: A lot Taking care of personal grooming such as brushing teeth: A lot Eating Meals: A lot Daily Activity - Total Score: 12 , OT Adult Other Outcome Measures 4AT: 4 AT + Education Documentation Body Mechanics, taught by Asad Horn OT at 05/02/2024 11:55 AM. Learner: Significant Other, Patient Readiness: Acceptance Method: Explanation, Demonstration Response: Verbalizes Understanding, Needs Reinforcement Precautions, taught by Asad Horn OT at 05/02/2024 11:55 AM. Learner: Significant Other, Patient Readiness: Acceptance Method: Explanation, Demonstration Response: Verbalizes Understanding, Needs Reinforcement ADL Training, taught by Asad Horn OT at 05/02/2024 11:55 AM. Learner: Significant Other, Patient Readiness: Acceptance Method: Explanation, Demonstration Response: Verbalizes Understanding, Needs Reinforcement Education Comments No comments found. Goals: Encounter Problems Encounter Problems (Active) ADLs Patient with complete lower body dressing with modified independent level of assistance donning and doffing all LE clothes with PRN adaptive equipment while edge of bed and standing (Progressing) Start: 05/02/24 Expected End: 05/23/24 Patient will complete daily grooming tasks brushing teeth and washing face/hair with modified independent level of assistance and PRN adaptive equipment while standing. (Progressing) Start: 05/02/24 Expected End: 05/23/24 Patient will complete toileting including hygiene clothing management/hygiene with modified independent level of assistance and raised toilet seat. (Progressing) Start: 05/02/24 Expected End: 05/23/24 BALANCE Pt will maintain dynamic standing balance during ADL task with modified independent level of assistance in order to demonstrate decreased risk of falling and improved postural control. (Progressing) Start: 05/02/24 Expected End: 05/23/24 COGNITION/SAFETY Patient will recall and adhere to ABD precautions during all functional mobility/ADL tasks in order to demonstrate improved understanding and promote healing post op (Progressing) Start: 05/02/24 Expected End: 05/23/24 Patient will score WFL on standardized cognitive assessment without cues and within reasonable time frame (Progressing) Start: 05/02/24 Expected End: 05/23/24 TRANSFERS Patient will complete functional transfers with least restrictive device with modified independent level of assistance. (Progressing) Start: 05/02/24 Expected End: 05/23/24 Treatment Completed on Evaluation Activities of Daily Living: Feeding Feeding Level of Assistance: Moderate assistance Feeding Where Assessed: Chair Feeding Comments: Pt kaceyos impaired functional strength and coordination effectting abilty to scoop ice chips and self feed. He requires assist with bringing spoon to mouth. Cues for improved IND. UE Dressing UE Dressing Level of Assistance: Moderate assistance UE Dressing Where Assessed: Bed level UE Dressing Comments: Assist with threading B UEs into gown and managing around back. Cues throughout for increased IND and sequencing task. Therapy/Activity: Therapeutic Activity Therapeutic Activity Performed: Yes Therapeutic Activity 1: Functional transfer to chair from bed with Mod A for balance and lifting assist. Cues for improved positioning and safety. Increased time due to line management and need for seated rest breaks throughout for recovery. Therapeutic Activity 2: Education on improved positioning while sitting up in chair for comfort and safety Therapeutic Activity 3: Education on ABD precautions and safety for ADLs and functional transfers. 05/02/24 at 11:56 AM Asad Horn OT Rehab Office: [phone] Transitional Shingle Catcher Note: Patient discussed in morning rounds, per medical team (ACS) patient is not medically ready. Patient remains on TPN, FELT HANGER pump and NG tube to LIWS. Discharge dispo: Plan for patient to discharge home with no needs when medically ready. TCC met with patient and patient's to discuss discharge plan and needs. Patient and family agreeable to discharge plan upon medical readiness. TCC discussed IMM with patient, patient requested to review prior to signing it. TCC to follow up with patient regarding IMM. Ale Oconnor RN BSN Transitional Shingle Catcher [facility] ACUTE CARE SURGERY - PROGRESS NOTE Patient Name: Lela Guerrier Admit Date: [id number] : 1950 AGE: 74 y.o. GENDER: male == TODAY'S ASSESSMENT AND PLAN OF CARE: 74 y.o. male with pmx of RA, COPD, prostate ca, bladder ca, CAD, PAD, BPH, HTN, GERD, colon ca, AAA, PAD, ileal conduit, cystectomy, prostatectomy, s/p peripheral artery angioplasty, s/p colectomy presented to OSH with abdominal pain nausea, emesis. CT concerning for SBO. Went to OR with ACS on 04/30 for ex lap and lysis of adhesions. UOP low, high NGT output, WBC downtrending. Replacing albumin. Neuro - pain control with FELT HANGER CV: Hx of HTN, CAD, AAA - q4h vitals - MAP>60 - holding home plavix - holding home lisinopril, amlodipine, statin while NPO Pulm - maintain O2>92 % - PRN albuterol GI: - NGT to LIWS - NPO, ice chips for comfort - ctm NG output - Protein Calorie Malnutrition: PICC line, TPN at goal - Continue Reglan for GI motility - LR at 50ml/hr - bisacodyl suppository : Acute Kidney Injury- non oliguric - avoid nephrotoxins, optimum resuscitation - Strict I&Os - mIVFs - daily RFP - replete electrolytes PRN Heme: acute blood loss anemia: asymptomatic - No need for acute transfusion - Transfusion for Hgb <7 Endo: No hx of DM Stress hyperglycemia - Supplemental insulin while on TPN ID: Complicated UTI Cultures grew Enterococcus faecalis sensitive to Unasyn - Transition to Unasyn from Zosyn today (04/29) - Trend WBC DVT Proph: - SCDs, SQH DVT: SCDs, SQH Dispo: Continue RNF Patient discussed with Attending Dr. Ric Lynn APRN, [facility] Acute Care Surgery Pager [phone] == CHIEF COMPLAINT / EVENTS LAST 24HRS / HPI: Went to OR with ACS on 04/30 for ex lap and lysis of adhesions. Patient tolerated procedure well. VSS, afebrile. NGT with 1L out overnight, thin, green. Abdomen tender. MEDICAL HISTORY / ROS: Admission history and ROS reviewed. Pertinent changes as follows: NA PHYSICAL EXAM: Heart Rate: [72-109] Temp: [36 C (96.8 F)-37.1 C (98.8 F)] Resp: [11-18] BP: (102-139)/(51-66) SpO2: [91 %-97 %] Physical Exam Constitutional: Appearance: Normal appearance. Eyes: Extraocular Movements: Extraocular movements intact. Cardiovascular: Comments: Non cyanotic Pulmonary: Comments: Non labored, good chest expansion Abdominal: Comments: Appropriately tender abdomen, nondistended, soft. NGT remains in place. Midline incision closed with edd. CDI. Genitourinary: Comments: Ileal conduit in place- stoma pink and functioning yellow urine Musculoskeletal: General: Normal range of motion. Skin: General: Skin is warm and dry. Neurological: Mental Status: He is alert and oriented to person, place, and time. Psychiatric: Behavior: Behavior normal. IMAGING SUMMARY: (summary of new imaging findings, not a copy of dictation) LABS: Results from last 7 days Lab Units 05/01/24 0439 04/30/24 1111 04/30/24 0540 WBC AUTO x10*3/uL 10.0 13.3* 17.5* HEMOGLOBIN g/dL 7.7* 8.0* 8.5* HEMATOCRIT % 24.2* 23.9* 27.3* PLATELETS AUTO x10*3/uL 267 313 410 Results from last 7 days Lab Units 04/30/24 0540 APTT seconds 29 INR 1.0 Results from last 7 days Lab Units 05/01/24 0811 04/30/24 1111 04/28/24 0545 04/25/24 1628 04/25/24 0520 SODIUM mmol/L 142 145 144 < > 145 POTASSIUM mmol/L 3.9 3.5 3.5 < > 3.5 CHLORIDE mmol/L 101 102 101 < > 96* CO2 mmol/L 34* 32 35* < > 40* BUN mg/dL 80* 60* 51* < > 59* CREATININE mg/dL 2.21* 2.03* 1.73* < > 2.11* CALCIUM mg/dL 7.2* 7.3* 7.8* < > 9.0 PROTEIN TOTAL g/dL -- -- -- -- 6.2* BILIRUBIN TOTAL mg/dL -- -- -- -- 0.8 ALK PHOS U/L -- -- -- -- 103 ALT U/L -- -- -- -- 83* AST U/L -- -- -- -- 32 GLUCOSE mg/dL 132* 253* 121* < > 119* < > = values in this interval not displayed. Results from last 7 days Lab Units 04/25/24 0520 BILIRUBIN TOTAL mg/dL 0.8 BILIRUBIN DIRECT mg/dL 0.4* Results from last 7 days Lab Units 04/30/24 1110 04/30/24 0835 POCT PH, ARTERIAL pH 7.41 7.46* POCT PCO2, ARTERIAL mm Hg 51* 48* POCT PO2, ARTERIAL mm Hg 64* 227* POCT HCO3 CALCULATED, ARTERIAL mmol/L 32.3* 34.1* POCT BASE EXCESS, ARTERIAL mmol/L 6.8* 9.2* I have reviewed all medications, laboratory results, and imaging pertinent for today's encounter. Associated attestation - Johnie Helm MD - 05/01/2024 12:10 PM EDT Seen and examined with the team. Agree with findings, impression, plans. Awaiting resolution of ileus. WBC coming down. [facility] ACUTE CARE SURGERY - PROGRESS NOTE Patient Name: Lela Guerrier Admit Date: [id number] : 1950 AGE: 74 y.o. GENDER: male == TODAY'S ASSESSMENT AND PLAN OF CARE: 74 y.o. male with pmx of RA, COPD, prostate ca, bladder ca, CAD, PAD, BPH, HTN, GERD, colon ca, AAA, PAD, ileal conduit, cystectomy, prostatectomy, s/p peripheral artery angioplasty, s/p colectomy presented to OSH with abdominal pain nausea, emesis. CT concerning for SBO. Neuro - pain control with IV tylenol, dilaudid 0.3mg q3 PRN CV: Hx of HTN, CAD, AAA - q4h vitals - MAP>60 - holding home plavix - holding home lisinopril, amlodipine, statin while NPO Pulm - maintain O2>92 % - PRN albuterol GI: - NGT to LIWS - NPO - Protein Calorie Malnutrition: PICC line, TPN at goal - Plan for SBFT today - Continue Reglan for GI motility - LR at 50ml/hr - bisacodyl suppository : Acute Kidney Injury- non oliguric - avoid nephrotoxins, optimum resuscitation - Strict I&Os - mIVFs - daily RFP - replete electrolytes PRN Heme: acute blood loss anemia: asymptomatic - No need for acute transfusion - Transfusion for Hgb <7 Endo: No hx of DM Stress hyperglycemia - Supplemental insulin while on TPN ID: Complicated UTI Cultures grew Enterococcus faecalis sensitive to Unasyn - Transition to Unasyn from Zosyn today (04/29) - Trend WBC DVT Proph: - SCDs, SQH DVT: SCDs, SQ Dispo: Continue RNF Patient discussed with Attending Dr. Ric Lynn APRN, [facility] Acute Care Surgery Pager [phone] == CHIEF COMPLAINT / EVENTS LAST 24HRS / HPI: No acute events, NGT output remains high at 2.5L. Had 1 BM MEDICAL HISTORY / ROS: Admission history and ROS reviewed. Pertinent changes as follows: NA PHYSICAL EXAM: Heart Rate: [73-92] Temp: [36 C (96.8 F)-36.6 C (97.9 F)] Resp: [18] BP: (145-165)/(69-77) Weight: [54.7 kg (120 lb 9.5 oz)] SpO2: [94 %-98 %] Physical Exam Constitutional: Appearance: Normal appearance. Eyes: Extraocular Movements: Extraocular movements intact. Cardiovascular: Comments: Non cyanotic Pulmonary: Comments: Non labored, good chest expansion Abdominal: Comments: Soft, non distended, non tender, NGT remains in place Genitourinary: Comments: Ileal conduit in place- stoma pink and functioning yellow urine Musculoskeletal: General: Normal range of motion. Skin: General: Skin is warm and dry. Neurological: Mental Status: He is alert and oriented to person, place, and time. Psychiatric: Behavior: Behavior normal. IMAGING SUMMARY: (summary of new imaging findings, not a copy of dictation) LABS: Results from last 7 days Lab Units 04/28/24 0545 04/27/24 0453 04/26/24 0439 WBC AUTO x10*3/uL 13.1* 11.9* 18.6* HEMOGLOBIN g/dL 9.8* 8.1* 11.3* HEMATOCRIT % 30.8* 25.7* 34.9* PLATELETS AUTO x10*3/uL 306 223 277 Results from last 7 days Lab Units 04/28/24 0545 04/27/24 0453 04/26/24 0439 04/25/24 1628 04/25/24 0520 SODIUM mmol/L 144 144 143 < > 145 POTASSIUM mmol/L 3.5 3.3* 3.2* < > 3.5 CHLORIDE mmol/L 101 98 94* < > 96* CO2 mmol/L 35* 37* 38* < > 40* BUN mg/dL 51* 63* 67* < > 59* CREATININE mg/dL 1.73* 1.84* 2.03* < > 2.11* CALCIUM mg/dL 7.8* 7.9* 7.8* < > 9.0 PROTEIN TOTAL g/dL -- -- -- -- 6.2* BILIRUBIN TOTAL mg/dL -- -- -- -- 0.8 ALK PHOS U/L -- -- -- -- 103 ALT U/L -- -- -- -- 83* AST U/L -- -- -- -- 32 GLUCOSE mg/dL 121* 131* 158* < > 119* < > = values in this interval not displayed. Results from last 7 days Lab Units 04/25/24 0520 BILIRUBIN TOTAL mg/dL 0.8 BILIRUBIN DIRECT mg/dL 0.4* I have reviewed all medications, laboratory results, and imaging pertinent for today's encounter. Transitional Care Coordination Progress Note: PLAN PER MEDICAL TEAM: SBFT today. PAYOR: [employer] Medicare DISPO: Home no needs. ADOD end of week. SUPPORT/CONTACT: Spouse, Julianne, Jana Correia RN, TCC [facility] ACUTE CARE SURGERY - PROGRESS NOTE Patient Name: Lela Guerrier Admit Date: [id number] : 1950 AGE: 74 y.o. GENDER: male == TODAY'S ASSESSMENT AND PLAN OF CARE: 74 y.o. male with pmx of RA, COPD, prostate ca, bladder ca, CAD, PAD, BPH, HTN, GERD, colon ca, AAA, PAD, ileal conduit, cystectomy, prostatectomy, s/p peripheral artery angioplasty, s/p colectomy presented to OSH with abdominal pain nausea, emesis. CT concerning for SBO. Plan for small bowel follow through 04/28. NG output higher today (2.7L), feculent 1 BM WBC up 13.1 from 11.9 Continue Zosyn for dysuria, urostomy. Protein-calorie malnutrition - Continue TPN Stress hyperglycemia - Supplemental insulin and monitor. Goal 100-180. Acute Kidney Injury - Non-oliguric. Avoid nephrotoxins. Ensure optimum resuscitation. Monitor. Hypocalcemia - asymptomatic. Replace and monitor. Acute Blood Loss Anemia - Asymptomatic. No need for acute transfusion. Monitor. Goal remains >7g/dl. SQH TID Patient seen and plans discussed with Chief Resident Dr. STEPHANIE Winston, PGY-[address] Fowler. Alize Copeland MD PGY-1 Acute Care Surgery [id number] == CHIEF COMPLAINT / EVENTS LAST 24HRS / HPI: NAEON. 1x BM yesterday. Still having large feculent output from NG. MEDICAL HISTORY / ROS: Admission history and ROS reviewed. Pertinent changes as follows: NA PHYSICAL EXAM: Heart Rate: [82-99] Temp: [35.9 C (96.7 F)-36.6 C (97.9 F)] Resp: [14-18] BP: (139-162)/(73-84) Weight: [52.1 kg (114 lb 13.8 oz)] SpO2: [95 %-97 %] Physical Exam NAD Nonlabored breathing, on NC Abd soft, nondistented, NG in with feculent output IMAGING SUMMARY: (summary of new imaging findings, not a copy of dictation) LABS: Results from last 7 days Lab Units 04/28/24 0545 04/27/24 0453 04/26/24 0439 WBC AUTO x10*3/uL 13.1* 11.9* 18.6* HEMOGLOBIN g/dL 9.8* 8.1* 11.3* HEMATOCRIT % 30.8* 25.7* 34.9* PLATELETS AUTO x10*3/uL 306 223 277 Results from last 7 days Lab Units 04/22/24 0335 APTT seconds 29 INR 1.0 Results from last 7 days Lab Units 04/28/24 0545 04/27/24 0453 04/26/24 0439 04/25/24 1628 04/25/24 0520 SODIUM mmol/L 144 144 143 < > 145 POTASSIUM mmol/L 3.5 3.3* 3.2* < > 3.5 CHLORIDE mmol/L 101 98 94* < > 96* CO2 mmol/L 35* 37* 38* < > 40* BUN mg/dL 51* 63* 67* < > 59* CREATININE mg/dL 1.73* 1.84* 2.03* < > 2.11* CALCIUM mg/dL 7.8* 7.9* 7.8* < > 9.0 PROTEIN TOTAL g/dL -- -- -- -- 6.2* BILIRUBIN TOTAL mg/dL -- -- -- -- 0.8 ALK PHOS U/L -- -- -- -- 103 ALT U/L -- -- -- -- 83* AST U/L -- -- -- -- 32 GLUCOSE mg/dL 121* 131* 158* < > 119* < > = values in this interval not displayed. Results from last 7 days Lab Units 04/25/24 0520 BILIRUBIN TOTAL mg/dL 0.8 BILIRUBIN DIRECT mg/dL 0.4* I have reviewed all medications, laboratory results, and imaging pertinent for today's encounter. Associated attestation - Prieto Fowler MD - 04/28/2024 12:07 PM EDT I saw and evaluated the patient. I personally obtained the davis and critical portions of the history and physical exam or was physically present for davis and critical portions performed by the resident/fellow. I reviewed the resident/fellow's documentation and discussed the patient with the resident/fellow. I agree with the resident/fellow's medical decision making as documented in the note. +gut function from below. NG aspirate remains bilious, high volume. Abd is benign. Slow resolution of ileus or partial SBO. Cont nutr support with TPN. Prieto Fowler MD [facility] ACUTE CARE SURGERY - ATTENDING PROGRESS NOTE Patient Name: Lela Guerrier Admit Date: [id number] : 1950 AGE: 74 y.o. GENDER: male == 74 y.o. male with pmx of RA, COPD, prostate ca, bladder ca, CAD, PAD, BPH, HTN, GERD, colon ca, AAA, PAD, ileal conduit, cystectomy, prostatectomy, s/p peripheral artery angioplasty, s/p colectomy presented to OSH with abdominal pain nausea, emesis. CT concerning for SBO. NG output slightly less, more clear than yesterday. No new complaints. Non-labored breathing. No stools. He is unsure ab/ flatus. UOP 1.1ml/kg/hr last 24hr avg. Running net negative, monitor volume status. WBC down to 11.9 Cont presumptive Zosyn for dysuria, urostomy. Protein-calorie malnutrition - Continue TPN Stress hyperglycemia - Supplemental insulin and monitor. Goal 100-180. Acute Kidney Injury - Non-oliguric. Avoid nephrotoxins. Ensure optimum resuscitation. Monitor. Hypocalcemia - asymptomatic. Replace and monitor. Acute Blood Loss Anemia - Asymptomatic. No need for acute transfusion. Monitor. Goal remains >7g/dl. SQH TID He remains a mixed picture for obstruction with likely hostile abdomen. Prokinetics trial day ~3. He understands the diagnostic difficulty and the risks of abdominal exploration. Previously has stated multiple times he wants no surgery unless we can tell him it will definitely fix him. As this prolongs, he has begun to appreciate that we may not be able to be that definitive but still my suggest that he undergo ex lap. I don't have much left in the way of non-op tx. Prieto Fowler MD, BILLIE 04/26/24 1100 Urostomy RLQ Placement Date/Time: 04/19/24 0700 Earliest Known Present: 04/19/24 Location: RLQ Stomal Appliance 2 piece Site/Stoma Assessment Clean;Intact;Red Stoma Size (cm) 2.5 cm Peristomal Assessment Clean;Intact Treatment Pouch change;Site care Ostomy type: ileal conduit size: 1 inch round color: red and moist protruding: budded Johnny: none Functioning: koki colored urine Mucocutaneous junction: intact Peristomal skin: clean, dry and intact. Barrier ring applied Pouchin piece Rebekah soft convex wafer and urostomy pouch Ostomy Education: Patient and are independent with the ostomy care. Plan: assess stoma/pouching Nutrition Follow Up Assessment: Nutrition Assessment Reason for Assessment: Dietitian discretion Patient is a 74 y.o. male presenting with SBO. PMH: RA, COPD, prostate ca, bladder ca, CAD, PAD, BPH, HTN, GERD, colon ca, AAA, PAD, ileal conduit, cystectomy, prostatectomy, s/p peripheral artery angioplasty, s/p colectomy Nutrition History: Food and Nutrient History: NGT with high out. Remains on TPN; Clinimix E 5/15 @ 83ml/hr + SMOF lipids @ 21ml/hr x 12 hours Anthropometrics: Height: 170.2 cm (5' 7) Weight: 55.5 kg (122 lb 5.7 oz) BMI (Calculated): 19.16 IBW/kg (Dietitian Calculated): 67.3 kg Weight History: Date/Time Weight 04/26/24 0600 55.5 kg (122 lb 5.7 oz) 04/24/24 0556 55.7 kg (122 lb 12.7 oz) 04/23/24 0600 58 kg (127 lb 13.9 oz) 04/22/24 0600 54.5 kg (120 lb 2.4 oz) 04/21/24 0600 56.9 kg (125 lb 7.1 oz) 04/20/24 0600 56.6 kg (124 lb 12.5 oz) 04/19/24 0235 56.9 kg (125 lb 7.1 oz) Weight: 56.9 kg (125 lb 7.1 oz) Nutrition Significant Labs: BMP Trend: Results from last 7 days Lab Units 04/26/2443804/25/24162704/25/2451904/24/24 0548 GLUCOSE mg/dL 158* 142* 119* 106* CALCIUM mg/dL 7.8* 8.3* 9.0 8.1* SODIUM mmol/L 143 143 145 144 POTASSIUM mmol/L 3.2* 3.2* 3.5 3.3* CO2 mmol/L 38* 40* 40* 35* CHLORIDE mmol/L 94* 91* 96* 98 BUN mg/dL 67* 69* 59* 46* CREATININE mg/dL 2.03* 2.45* 2.11* 1.49* , Renal Lab Trend: Results from last 7 days Lab Units 04/26/2443804/25/24162704/25/2451904/24/24 0548 POTASSIUM mmol/L 3.2* 3.2* 3.5 3.3* PHOSPHORUS mg/dL 4.2 4.5 3.7 3.8 SODIUM mmol/L 143 143 145 144 MAGNESIUM mg/dL 2.29 2.37 2.34 2.03 EGFR mL/min/1.73m*2 34* 27* 32* 49* BUN mg/dL 67* 69* 59* 46* CREATININE mg/dL 2.03* 2.45* 2.11* 1.49* , TPN/PPN Labs: Results from last 7 days Lab Units 04/26/2443804/25/24162704/25/2451904/24/24 0548 GLUCOSE mg/dL 158* 142* 119* 106* POTASSIUM mmol/L 3.2* 3.2* 3.5 3.3* PHOSPHORUS mg/dL 4.2 4.5 3.7 3.8 MAGNESIUM mg/dL 2.29 2.37 2.34 2.03 SODIUM mmol/L 143 143 145 144 CHLORIDE mmol/L 94* 91* 96* 98 ALT U/L -- -- 83* -- AST U/L -- -- 32 -- ALK PHOS U/L -- -- 103 -- BILIRUBIN TOTAL mg/dL -- -- 0.8 -- Nutrition Specific Medications: Scheduled medications [Held by provider] amLODIPine, 10 mg, oral, Daily bisacodyl, 10 mg, rectal, Daily fat emulsion fish oil/plant based, 250 mL, intravenous, Daily heparin (porcine), 5,000 Units, subcutaneous, q8h insulin lispro, 0-5 Units, subcutaneous, TID lidocaine, 5 mL, infiltration, Once [Held by provider] lisinopril, 20 mg, oral, Daily metoclopramide, 10 mg, intravenous, q6h KAYLA piperacillin-tazobactam, 2.25 g, intravenous, q6h potassium chloride, 20 mEq, intravenous, q2h sodium chloride, 500 mL, intravenous, q8h Continuous medications Adult Clinimix Parenteral Nutrition, 83 mL/hr, Last Rate: 83 mL/hr (04/26/24 0121) lactated Ringer's, 50 mL/hr, Last Rate: 50 mL/hr (04/25/24 1231) PRN medications PRN medications: albuterol, alteplase, benzocaine-menthol, dextrose, dextrose, glucagon, glucagon, HYDROmorphone, ondansetron, phenoL, sodium chloride, white petrolatum I/O: Last BM Date: 04/24/24; Stool Appearance: Unable to assess (04/23/24 0812) Dietary Orders (From admission, onward) Start Ordered 04/23/24 0918 NPO Diet; Effective now Diet effective now 04/23/24 0922 Estimated Needs: Total Energy Estimated Needs (kCal): (2288-6802) Method for Estimating Needs: 30-35 kcal/kg actual wt Total Protein Estimated Needs (g): 85 g Method for Estimating Needs: 1.5 g/kg actual wt (+) Nutrition Diagnosis Malnutrition Diagnosis Patient has Malnutrition Diagnosis: Yes Diagnosis Status: Ongoing (improving d/t TPN meeting > 75% needs) Malnutrition Diagnosis: Moderate malnutrition related to acute disease or injury As Evidenced by: mild muscle loss and subcutaneous fat loss, oral intake <75% estimated needs over the last 5 days or so. Additional Assessment Information: Pt likely with slim build at baseline-- son in room and able to confirm that pt and him are of similar stature. Nutrition Interventions/Recommendations Nutrition Prescription: Continue to replete low lytes PRN Clinimix E 03/06 @ 83ml/hr + 250ml SMOF lipids @ 21ml/hr x 12 hours TPN provides 2000ml, 1920kcal, 100gm protein Nutrition Interventions: Interventions: Parenteral nutrition/ IV fluids Parenteral Nutrition/IV Fluids: Other (Comment) Labs: Renal panel and magnesium daily, Repeat electrolytes as needed, Triglycerides: now and each week, LFTs: now and each week Nutrition Monitoring and Evaluation Food/Nutrient Related History Monitoring Monitoring and Evaluation Plan: Enteral and parenteral nutrition intake Enteral and Parenteral Nutrition Intake: Parenteral nutrition intake Criteria: pt will receive >/= 80% prescribed PN Body Composition/Growth/Weight History Monitoring and Evaluation Plan: Weight Criteria: wt WNL Biochemical Data, Medical Tests and Procedures Monitoring and Evaluation Plan: Electrolyte/renal panel, Glucose/endocrine profile Criteria: POC Gluc < 180 Time Spent (min): 30 minutes Continuing to follow patient for very high NG output and failed trial without NGT. Continuing on TPN. Will continue to monitor patient for discharge readiness. Reginald Fabian RN [facility] ACUTE CARE SURGERY - PROGRESS NOTE Patient Name: Lela Guerrier Admit Date: [id number] : 1950 AGE: 74 y.o. GENDER: male == TODAY'S ASSESSMENT AND PLAN OF CARE: 74 y.o. male with pmx of RA, COPD, prostate ca, bladder ca, CAD, PAD, BPH, HTN, GERD, colon ca, AAA, PAD, ileal conduit, cystectomy, prostatectomy, s/p peripheral artery angioplasty, s/p colectomy presented to OSH with abdominal pain nausea, emesis. CT concerning for SBO. Patient with mixed picture. Had contrast pass into his colon during gastrograffin challenge, but still with very high NG output and failed trial without NGT. Continuing on TPN. Patient also presented with pleural effusion, now s/p pigtail. Cytology negative for malignant cells - Ongoing leukocytosis; blood and urine cultures pending; continue zosyn for now; will add vanc if spiking fevers - Ongoing high NG output, maintain NGT to LIWS, continue TPN and IVF; bolus prn for high NG output - Enemas today - Will remove CT this AM - Holding off on operative intervention at this time - Lovenox Patient discussed with Attending Physician Dr. Fowler. JJ [facility] Acute Care Surgery [id number] == CHIEF COMPLAINT / EVENTS LAST 24HRS / HPI: NAEON. Feeling ok this AM. No BM yesterday. No abdominal pain. MEDICAL HISTORY / ROS: Admission history and ROS reviewed. Pertinent changes as follows: NA PHYSICAL EXAM: Heart Rate: [76-103] Temp: [36.2 C (97.2 F)-37.1 C (98.8 F)] Resp: [14-18] BP: (131-150)/(74-84) Weight: [55.5 kg (122 lb 5.7 oz)] SpO2: [90 %-96 %] NAD NGT with thick dark brown output Intermittent tachycardia overnight Nonlabored respirations; pigtail catheter in place draining serous fluid, to water seal, no air leak, dressing in place Abd soft, distended, nontender, no peritonitis Urostomy with purple-tinged urine IMAGING SUMMARY: CXR without obvious PTX KUB still with retained contrast LABS: Results from last 7 days Lab Units 04/26/24 0439 04/25/24 1628 04/25/24 0520 WBC AUTO x10*3/uL 18.6* 16.8* 19.1* HEMOGLOBIN g/dL 11.3* 12.2* 12.4* HEMATOCRIT % 34.9* 38.5* 38.8* PLATELETS AUTO x10*3/uL 277 299 340 Results from last 7 days Lab Units 04/22/24 0335 APTT seconds 29 INR 1.0 Results from last 7 days Lab Units 04/26/24 0439 04/25/24 1628 04/25/24 0520 SODIUM mmol/L 143 143 145 POTASSIUM mmol/L 3.2* 3.2* 3.5 CHLORIDE mmol/L 94* 91* 96* CO2 mmol/L 38* 40* 40* BUN mg/dL 67* 69* 59* CREATININE mg/dL 2.03* 2.45* 2.11* CALCIUM mg/dL 7.8* 8.3* 9.0 PROTEIN TOTAL g/dL -- -- 6.2* BILIRUBIN TOTAL mg/dL -- -- 0.8 ALK PHOS U/L -- -- 103 ALT U/L -- -- 83* AST U/L -- -- 32 GLUCOSE mg/dL 158* 142* 119* Results from last 7 days Lab Units 04/25/24 0520 BILIRUBIN TOTAL mg/dL 0.8 BILIRUBIN DIRECT mg/dL 0.4* I have reviewed all medications, laboratory results, and imaging pertinent for today's encounter. Associated attestation - Prieto Fowler MD - 04/26/2024 8:25 PM EDT I saw and evaluated the patient. I personally obtained the davis and critical portions of the history and physical exam or was physically present for davis and critical portions performed by the resident/fellow. I reviewed the resident/fellow's documentation and discussed the patient with the resident/fellow. I agree with the resident/fellow's medical decision making as documented in the note. D/w he and today again. Chest tube out. Serous fluid. No infxn, no tumor cells. Breathing is better per him. Abd is soft and benign. NG is thick bile of increasing volume. He reports near obstipation. KUB shows some residual contrast, precludes further contrast studies. He is more agreeable to ex lap after today's discussion. I don't have much more to offer diagnostically. Wants to discuss tomorrow again. Prieto Fowler MD [facility] ACUTE CARE SURGERY - PROGRESS NOTE Patient Name: Lela Guerrier Admit Date: 6271126 : 1950 AGE: 74 y.o. GENDER: male == TODAY'S ASSESSMENT AND PLAN OF CARE: 74 y.o. male with pmx of RA, COPD, prostate ca, bladder ca, CAD, PAD, BPH, HTN, GERD, colon ca, AAA, PAD, ileal conduit, cystectomy, prostatectomy, s/p peripheral artery angioplasty, s/p colectomy presented to OSH with abdominal pain nausea, emesis. CT concerning for SBO. Patient with mixed picture. Had contrast pass into his colon during gastrograffin challenge, but still with very high NG output and failed trial without NGT. Continuing on TPN. Patient also presented with pleural effusion, now s/p pigtail. Cytology pending - Worsening WBC count today concerning for infectious process; will start empiric zosyn; UA pending (patient with purple tinged urine this AM, which has been reported as a sign of UTIs) - Ongoing high NG output, maintain NGT to LIWS, continue TPN - Will give additional bolus of LR and add additional mIVF due to MIRIAM (thought to be secondary to hypovolemia) - Will water seal chest tube, CXR in AM - Holding off on operative intervention at this time - Lovenox Patient discussed with Attending Physician Dr. Fowler. STEPHANIE [facility] Acute Care Surgery [id number] == CHIEF COMPLAINT / EVENTS LAST 24HRS / HPI: NAEON. Patient remains with NGT. No Bms yesterday. Unsure if passed flatus recently. No abdominal pain. No SOB MEDICAL HISTORY / ROS: Admission history and ROS reviewed. Pertinent changes as follows: NA PHYSICAL EXAM: Heart Rate: [95-118] Temp: [36.3 C (97.3 F)-37.2 C (99 F)] Resp: [17-18] BP: (106-158)/(70-82) SpO2: [92 %-99 %] NAD NGT with thick dark brown output Intermittent tachycardia overnight Nonlabored respirations; pigtail catheter in place draining serous fluid, to -20 suction, no air leak, dressing in place Abd soft, distended, nontender Urostomy with purple-tinged urine IMAGING SUMMARY: CXR with small basilar pneumothorax (presumed to be empty space now that lung has re-expanded), pigtail in good position LABS: Results from last 7 days Lab Units 04/25/24 0504/24/24 0548 04/23/24 0616 04/20/24 0423 04/19/24 0908 WBC AUTO x10*3/uL 19.1* 12.6* 13.1* < > 8.2 HEMOGLOBIN g/dL 12.4* 11.0* 11.5* < > 10.3* HEMATOCRIT % 38.8* 34.7* 35.3* < > 33.6* PLATELETS AUTO x10*3/uL 340 285 302 < > 321 NEUTROS PCT AUTO % -- -- -- -- 83.3 LYMPHS PCT AUTO % -- -- -- -- 9.3 MONOS PCT AUTO % -- -- -- -- 6.0 EOS PCT AUTO % -- -- -- -- 0.5 < > = values in this interval not displayed. Results from last 7 days Lab Units 04/22/24 0335 04/19/24 0908 APTT seconds 28 INR 1.0 1.0 Results from last 7 days Lab Units 04/25/24 0520 04/24/24 0548 04/23/24 0616 04/20/24 0423 04/19/24 0908 SODIUM mmol/L 145 144 143 < > 144 POTASSIUM mmol/L 3.5 3.3* 3.5 < > 3.7 CHLORIDE mmol/L 96* 98 100 < > 105 CO2 mmol/L 40* 35* 33* < > 28 BUN mg/dL 59* 46* 39* < > 26* CREATININE mg/dL 2.11* 1.49* 1.42* < > 1.40* CALCIUM mg/dL 9.0 8.1* 8.5* < > 8.2* PROTEIN TOTAL g/dL 6.2* -- -- -- 5.5* BILIRUBIN TOTAL mg/dL 0.8 -- -- -- 0.5 ALK PHOS U/L 103 -- -- -- 61 ALT U/L 83* -- -- -- 8* AST U/L 32 -- -- -- 14 GLUCOSE mg/dL 119* 106* 116* < > 124* < > = values in this interval not displayed. Results from last 7 days Lab Units 04/25/24 0520 04/19/24 0908 04/19/24 0409 BILIRUBIN TOTAL mg/dL 0.8 0.5 -- BILIRUBIN DIRECT mg/dL 0.4* -- 0.2 I have reviewed all medications, laboratory results, and imaging pertinent for today's encounter. Associated attestation - Prieto Fowler MD - 04/25/2024 11:19 AM EDT I saw and evaluated the patient. I personally obtained the davis and critical portions of the history and physical exam or was physically present for davis and critical portions performed by the resident/fellow. I reviewed the resident/fellow's documentation and discussed the patient with the resident/fellow. I agree with the resident/fellow's medical decision making as documented in the note. Empiric tx of suspected UTI in setting of new leukocytosis. Does not appear to have pneumonia, lung poe clearing. Pleural effusion not purulent. Cont gut dysmotility with flatus. Abd otherwise benign. Same advice re holding off on exploring abdomen. Motility Rx day 2 Prieto Fowler MD [facility] ACUTE CARE SURGERY - PROGRESS NOTE Patient Name: Lela Guerrier Admit Date: 6271126 : 1950 AGE: 74 y.o. GENDER: male == TODAY'S ASSESSMENT AND PLAN OF CARE: 74 y.o. male with pmx of RA, COPD, prostate ca, bladder ca, CAD, PAD, BPH, HTN, GERD, colon ca, AAA, PAD, ileal conduit, cystectomy, prostatectomy, s/p peripheral artery angioplasty, s/p colectomy presented to OSH with abdominal pain nausea, emesis. CT concerning for SBO. Gastrograffin challenge showing some contrast in colon. NG putting out large volumes. Pigtail in place. Abdomen is nontender. Neuro - pain control with IV tylenol, dilaudid 0.3mg q3 PRN CV - q4h vitals - MAP>60 - holding home plavix - home lisinopril, amlodipine - coags, type and screen Pulm - maintain O2>92 % - PRN albuterol - Pigtail in, repeat CXR confirms placement GI - NPO -NG to LIWS - PICC line, TPN at goal - LR at 50ml/hr - bisacodyl suppository - started reglan - daily RFP - replete electrolytes PRN DVT: SQH Dispo: Not medically ready. Patient seen and plans discussed with Chief Resident Dr. STEPHANIE Winston, PGY-[address] Fowler. Alize Copeland MD PGY-1 Acute Care Surgery [id number] == CHIEF COMPLAINT / EVENTS LAST 24HRS / HPI: NAEON. NG back in and drained 2.5L. Pigtail drained 1L. MEDICAL HISTORY / ROS: Admission history and ROS reviewed. Pertinent changes as follows: NA PHYSICAL EXAM: Heart Rate: [88-104] Temp: [36.5 C (97.7 F)-36.9 C (98.4 F)] Resp: [17-18] BP: (153-168)/(74-83) Weight: [55.7 kg (122 lb 12.7 oz)] SpO2: [92 %-95 %] Physical Exam Gen: NAD Neuro: A&Ox3 Resp: nonlabored breathing, chest rise equal bilaterally, pigtail on L side GI: NG in place on suction, abdomen is soft and nontender MSK:normal ROM Skin: warm and dry IMAGING SUMMARY: (summary of new imaging findings, not a copy of dictation) LABS: Results from last 7 days Lab Units 04/24/24 0548 04/23/2461504/22/2433404/20/2442204/19/24 0908 WBC AUTO x10*3/uL 12.6* 13.1* 11.0 < > 8.2 HEMOGLOBIN g/dL 11.0* 11.5* 10.1* < > 10.3* HEMATOCRIT % 34.7* 35.3* 32.1* < > 33.6* PLATELETS AUTO x10*3/uL 285 302 268 < > 321 NEUTROS PCT AUTO % -- -- -- -- 83.3 LYMPHS PCT AUTO % -- -- -- -- 9.3 MONOS PCT AUTO % -- -- -- -- 6.0 EOS PCT AUTO % -- -- -- -- 0.5 < > = values in this interval not displayed. Results from last 7 days Lab Units 04/22/2433404/19/24 0908 APTT seconds 29 28 INR 1.0 1.0 Results from last 7 days Lab Units 04/24/24 0548 04/23/24 0616 04/22/2433404/20/24 0423 04/19/24 0908 SODIUM mmol/L 144 143 146* < > 144 POTASSIUM mmol/L 3.3* 3.5 3.6 < > 3.7 CHLORIDE mmol/L 98 100 102 < > 105 CO2 mmol/L 35* 33* 34* < > 28 BUN mg/dL 46* 39* 33* < > 26* CREATININE mg/dL 1.49* 1.42* 1.32* < > 1.40* CALCIUM mg/dL 8.1* 8.5* 8.1* < > 8.2* PROTEIN TOTAL g/dL -- -- -- -- 5.5* BILIRUBIN TOTAL mg/dL -- -- -- -- 0.5 ALK PHOS U/L -- -- -- -- 61 ALT U/L -- -- -- -- 8* AST U/L -- -- -- -- 14 GLUCOSE mg/dL 106* 116* 118* < > 124* < > = values in this interval not displayed. Results from last 7 days Lab Units 04/19/24 0908 04/19/24 0409 BILIRUBIN TOTAL mg/dL 0.5 -- BILIRUBIN DIRECT mg/dL -- 0.2 I have reviewed all medications, laboratory results, and imaging pertinent for today's encounter. Associated attestation - Prieto Fowler MD - 04/25/2024 6:56 AM EDT I saw and evaluated the patient. I personally obtained the davis and critical portions of the history and physical exam or was physically present for davis and critical portions performed by the resident/fellow. I reviewed the resident/fellow's documentation and discussed the patient with the resident/fellow. I agree with the resident/fellow's medical decision making as documented in the note. Continued gut dysmotility unexplained by imaging. Chronic pain and narcotic tx. Ongoing low level discomfort he describes as twinges. I have had multiple discussions with he and his re: surgery last resort, mainly because no indication of mechanical obstruction. True exploration must be weighed against real risk given potentially hostile abdomen. He has in turn stated he does not want surgery unless I can tell him it will fix him. Try promotility agent. Wait for some evac of contrast. Will consider the many imaging/endoscopic diagnostic tools such as emptying study. Prieto Fowler MD [employer] web marketing coordinator note: Per ACS team, Patient is still sick, has NGT and is on TPN. Waiting on further imaging. Patient was started on Reglan. ADOD currently at 04/26/24. We will continue to monitor daily for updates. Reginald Fabian RN [facility] ACUTE CARE SURGERY - PROGRESS NOTE Patient Name: Lela Guerrier Admit Date: 6271126 : 1950 AGE: 74 y.o. GENDER: male == TODAY'S ASSESSMENT AND PLAN OF CARE: 74 y.o. male with pmx of RA, COPD, prostate ca, bladder ca, CAD, PAD, BPH, HTN, GERD, colon ca, AAA, PAD, ileal conduit, cystectomy, prostatectomy, s/p peripheral artery angioplasty, s/p colectomy presented to OSH with abdominal pain nausea, emesis. CT concerning for SBO. Gastrograffin challenge showing some contrast in colon. NG out and tolerating clear diet. Abdomen is mildly distended and nontender. He vomited once today. WBC up to 13.1. Pigtail placed today to suction- 925cc out, cultures sent. Neuro - pain control with IV tylenol, dilaudid 0.3mg q3 PRN CV - q4h vitals - MAP>60 - holding home plavix - home lisinopril, amlodipine - coags, type and screen Pulm - maintain O2>92 % - PRN albuterol - Pigtail placement today for effusion, cultures sent GI - NPO -NG back ini - PICC line, TPN at goal - LR at 50ml/hr - bisacodyl suppository - daily RFP - replete electrolytes PRN DVT: SQH Dispo: Not medically ready. Patient seen and plans discussed with Chief Resident Dr. STEPHANIE Winston, PGY-[address] Fowler. Alize Copeland MD PGY-1 Acute Care Surgery [id number] == CHIEF COMPLAINT / EVENTS LAST 24HRS / HPI: NGT out, tolerating clears with some nausea and 1x vomit. 2x BM. MEDICAL HISTORY / ROS: Admission history and ROS reviewed. Pertinent changes as follows: NA PHYSICAL EXAM: Heart Rate: [67-105] Temp: [35.9 C (96.6 F)-36.7 C (98.1 F)] Resp: [18] BP: (134-198)/(67-90) Weight: [58 kg (127 lb 13.9 oz)] SpO2: [93 %-99 %] Physical Exam Constitutional: Appearance: Normal appearance. HENT: Head: Normocephalic and atraumatic. Cardiovascular: Rate and Rhythm: Normal rate and regular rhythm. Pulmonary: Effort: Pulmonary effort is normal. Abdominal: General: There is distension. Tenderness: There is no abdominal tenderness. Skin: General: Skin is warm and dry. Neurological: Mental Status: He is alert. IMAGING SUMMARY: (summary of new imaging findings, not a copy of dictation) LABS: Results from last 7 days Lab Units 04/23/24 0616 04/22/24 0335 04/21/24 0355 04/20/24 0423 04/19/24 0908 WBC AUTO x10*3/uL 13.1* 11.0 10.5 < > 8.2 HEMOGLOBIN g/dL 11.5* 10.1* 10.5* < > 10.3* HEMATOCRIT % 35.3* 32.1* 32.7* < > 33.6* PLATELETS AUTO x10*3/uL 302 268 324 < > 321 NEUTROS PCT AUTO % -- -- -- -- 83.3 LYMPHS PCT AUTO % -- -- -- -- 9.3 MONOS PCT AUTO % -- -- -- -- 6.0 EOS PCT AUTO % -- -- -- -- 0.5 < > = values in this interval not displayed. Results from last 7 days Lab Units 04/22/24 0335 04/19/24 0908 APTT seconds 29 28 INR 1.0 1.0 Results from last 7 days Lab Units 04/23/24 0616 04/22/24 0335 04/21/24 0355 04/20/24 0423 04/19/24 0908 SODIUM mmol/L 143 146* 147* < > 144 POTASSIUM mmol/L 3.5 3.6 3.3* < > 3.7 CHLORIDE mmol/L 100 102 103 < > 105 CO2 mmol/L 33* 34* 34* < > 28 BUN mg/dL 39* 33* 27* < > 26* CREATININE mg/dL 1.42* 1.32* 1.41* < > 1.40* CALCIUM mg/dL 8.5* 8.1* 8.9 < > 8.2* PROTEIN TOTAL g/dL -- -- -- -- 5.5* BILIRUBIN TOTAL mg/dL -- -- -- -- 0.5 ALK PHOS U/L -- -- -- -- 61 ALT U/L -- -- -- -- 8* AST U/L -- -- -- -- 14 GLUCOSE mg/dL 116* 118* 123* < > 124* < > = values in this interval not displayed. Results from last 7 days Lab Units 04/19/24 0908 04/19/24 0409 BILIRUBIN TOTAL mg/dL 0.5 -- BILIRUBIN DIRECT mg/dL -- 0.2 I have reviewed all medications, laboratory results, and imaging pertinent for today's encounter. Associated attestation - Prieto Fowler MD - 04/23/2024 3:42 PM EDT I saw and evaluated the patient. I personally obtained the davis and critical portions of the history and physical exam or was physically present for davis and critical portions performed by the resident/fellow. I reviewed the resident/fellow's documentation and discussed the patient with the resident/fellow. I agree with the resident/fellow's medical decision making as documented in the note. Vomited - intol of clears. NG back in, 1L out. Cont to have lower GI function, flatus/stool. Pigtail in L chest, serous fluid out. His imaging = no evidence of obstruction and I agree. There are inflammatory changes throughout the abdomen/mesentery. It is not clear to me that exploration is indicated or will be helpful. It carries real risk given his likely hostile abdomen. For now, cont NG decompression, studies sent on pleural fluid. Hydration and may need nutritional support. Prieto Fowler MD [facility] ACUTE CARE SURGERY - PROGRESS NOTE Patient Name: Lela Guerrier Admit Date: 6271126 : 1950 AGE: 74 y.o. GENDER: male == TODAY'S ASSESSMENT AND PLAN OF CARE: 74 y.o. male with pmx of RA, COPD, prostate ca, bladder ca, CAD, PAD, BPH, HTN, GERD, colon ca, AAA, PAD, ileal conduit, cystectomy, prostatectomy, s/p peripheral artery angioplasty, s/p colectomy presented to OSH with abdominal pain nausea, emesis. CT concerning for SBO. Gastrograffin challenge showing some contrast in colon. Large volume (5L) feculant NGT output. Repeat CT +PO/ IV contrast today. Neuro - pain control with IV tylenol, dilaudid 0.3mg q3 PRN CV - q4h vitals - MAP>60 - holding home plavix - holding home lisinopril, amlodipine, statin while NPO - coags, type and screen Pulm - maintain O2>92 % - PRN albuterol GI - NGT to LIWS - NPO - PICC line, TPN at goal - LR at 50ml/hr - bisacodyl suppository - CT with PO and IV con - daily RFP - replete electrolytes PRN DVT: SQH Dispo: Not medically ready. Alize Copeland PGY-1 ACS [id number] == CHIEF COMPLAINT / EVENTS LAST 24HRS / HPI: NAEON. 5x BM overnight. Improved abdominal pain. Passed gastrograffin trial, 5L feculant NG output. MEDICAL HISTORY / ROS: Admission history and ROS reviewed. Pertinent changes as follows: NA PHYSICAL EXAM: Heart Rate: [74-93] Temp: [36.6 C (97.8 F)-38 C (100.4 F)] Resp: [16-18] BP: (158-186)/(70-85) Weight: [54.5 kg (120 lb 2.4 oz)] SpO2: [90 %-99 %] Physical Exam Constitutional: no acute distress, older gentleman, comfortable, conversational Neuro: A/O x4, no gross deficits Psych: normal affect HEENT: No deformities, no scleral icterus, NGT to LIWS with dark thin output Cardiac: RRR Pulmonary: unlabored respirations on RA Abdomen: soft, nontender ileoconduit with urine, nonperitonitic Skin: warm and dry overall Extremities: no swelling noted MSK: moving all four IMAGING SUMMARY: (summary of new imaging findings, not a copy of dictation) LABS: Results from last 7 days Lab Units 04/22/24 0335 04/21/24 0355 04/20/24 0423 04/19/24 0908 WBC AUTO x10*3/uL 11.0 10.5 9.3 8.2 HEMOGLOBIN g/dL 10.1* 10.5* 10.2* 10.3* HEMATOCRIT % 32.1* 32.7* 31.2* 33.6* PLATELETS AUTO x10*3/uL 268 324 320 321 NEUTROS PCT AUTO % -- -- -- 83.3 LYMPHS PCT AUTO % -- -- -- 9.3 MONOS PCT AUTO % -- -- -- 6.0 EOS PCT AUTO % -- -- -- 0.5 Results from last 7 days Lab Units 04/22/24 0335 04/19/24 0908 APTT seconds 29 28 INR 1.0 1.0 Results from last 7 days Lab Units 04/22/24 0335 04/21/24 0355 04/20/24 0423 04/19/24 0908 SODIUM mmol/L 146* 147* 148* 144 POTASSIUM mmol/L 3.6 3.3* 3.3* 3.7 CHLORIDE mmol/L 102 103 104 105 CO2 mmol/L 34* 34* 35* 28 BUN mg/dL 33* 27* 23 26* CREATININE mg/dL 1.32* 1.41* 1.38* 1.40* CALCIUM mg/dL 8.1* 8.9 8.5* 8.2* PROTEIN TOTAL g/dL -- -- -- 5.5* BILIRUBIN TOTAL mg/dL -- -- -- 0.5 ALK PHOS U/L -- -- -- 61 ALT U/L -- -- -- 8* AST U/L -- -- -- 14 GLUCOSE mg/dL 118* 123* 129* 124* Results from last 7 days Lab Units 04/19/24 0908 04/19/24 0409 BILIRUBIN TOTAL mg/dL 0.5 -- BILIRUBIN DIRECT mg/dL -- 0.2 I have reviewed all medications, laboratory results, and imaging pertinent for today's encounter. Associated attestation - Prieto Fowler MD - 04/22/2024 7:19 PM EDT I saw and evaluated the patient. I personally obtained the davis and critical portions of the history and physical exam or was physically present for davis and critical portions performed by the resident/fellow. I reviewed the resident/fellow's documentation and discussed the patient with the resident/fellow. I agree with the resident/fellow's medical decision making as documented in the note. Long discussion about options. He does not appear to be obstructed. Contrast goes to rectum. Abd is benign. His only complaint is the NG. The NG output remains higher than I would expect. Given the likely frozen nature of his abdomen, I would avoid surgery if at all possible. Suggest remove NG and try clears for rest of day. He has a large pleural effusion that is of unclear etiology. I also think he is symptomatic from it. Pigtail drainage with fluid analysis. Total time (in minutes) spent during today's patient encounter (>50% devoted to counseling patient/family and coordination of care, not including any time on bedside procedures) = 65 Prieto Fowler MD Transitional Shingle Catcher Note: Patient discussed in morning rounds, per medical team (ACS) patient is not medically ready. Plan for repeat CT, possible need for operative intervention pending scans. Discharge dispo: Plan for patient to discharge home no needs when medically ready. Ale Oconnor RN BSN Transitional Shingle Catcher [facility] ACUTE CARE SURGERY - PROGRESS NOTE Patient Name: Lela Guerrier Admit Date: 6271126 : 1950 AGE: 74 y.o. GENDER: male == TODAY'S ASSESSMENT AND PLAN OF CARE: 74 y.o. male with pmx of RA, COPD, prostate ca, bladder ca, CAD, PAD, BPH, HTN, GERD, colon ca, AAA, PAD, ileal conduit, cystectomy, prostatectomy, s/p peripheral artery angioplasty, s/p colectomy presented to OSH with abdominal pain nausea, emesis. CT concerning for SBO. Gastrograffin challenge showing some contrast in colon. Dark fluid from NGT, advanced 4cm. x1BM ovn. Neuro - pain control with IV tylenol, dilaudid 0.3mg q3 PRN CV - q4h vitals - MAP>60 - holding home plavix - holding home lisinopril, amlodipine, statin while NPO - coags, type and screen Pulm - maintain O2>92 % - PRN albuterol GI - NGT to LIWS - NPO - NGT advanced 4cm - PICC line, TPN at goal - LR at 50ml/hr - bisacodyl suppository - daily RFP - replete electrolytes PRN DVT: SQH Dispo: Not medically ready[facility] [id number] == CHIEF COMPLAINT / EVENTS LAST 24HRS / HPI: NAEON. Having hard stools. Has abdominal pain, helped with dilaudid. No fevers or chills. No SOB or CP. x1BM with suppository, gastrograffin. PHYSICAL EXAM: Heart Rate: [82-92] Temp: [36 C (96.8 F)-37.1 C (98.7 F)] Resp: [16-18] BP: (160-176)/(51-75) Weight: [56.9 kg (125 lb 7.1 oz)] SpO2: [93 %-96 %] Physical Exam Constitutional: no acute distress, older gentleman, comfortable, conversational Neuro: A/O x4, no gross deficits Psych: normal affect HEENT: No deformities, no scleral icterus, NGT to LIWS with dark thin output cw contrast fluid Cardiac: RRR Pulmonary: unlabored respirations on RA Abdomen: soft, mild distension, minimal tender, ileoconduit with urine, nonperitonitic Skin: warm and dry overall Extremities: no swelling noted MSK: moving all four IMAGING SUMMARY: (summary of new imaging findings, not a copy of dictation) NA LABS: Results from last 7 days Lab Units 04/21/24 0355 04/20/24 0423 04/19/24 0908 WBC AUTO x10*3/uL 10.5 9.3 8.2 HEMOGLOBIN g/dL 10.5* 10.2* 10.3* HEMATOCRIT % 32.7* 31.2* 33.6* PLATELETS AUTO x10*3/uL 324 320 321 NEUTROS PCT AUTO % -- -- 83.3 LYMPHS PCT AUTO % -- -- 9.3 MONOS PCT AUTO % -- -- 6.0 EOS PCT AUTO % -- -- 0.5 Results from last 7 days Lab Units 04/19/24 0908 APTT seconds 28 INR 1.0 Results from last 7 days Lab Units 04/21/24 0355 04/20/24 0423 04/19/24 0908 SODIUM mmol/L 147* 148* 144 POTASSIUM mmol/L 3.3* 3.3* 3.7 CHLORIDE mmol/L 103 104 105 CO2 mmol/L 34* 35* 28 BUN mg/dL 27* 23 26* CREATININE mg/dL 1.41* 1.38* 1.40* CALCIUM mg/dL 8.9 8.5* 8.2* PROTEIN TOTAL g/dL -- -- 5.5* BILIRUBIN TOTAL mg/dL -- -- 0.5 ALK PHOS U/L -- -- 61 ALT U/L -- -- 8* AST U/L -- -- 14 GLUCOSE mg/dL 123* 129* 124* Results from last 7 days Lab Units 04/19/24 0908 04/19/24 0409 BILIRUBIN TOTAL mg/dL 0.5 -- BILIRUBIN DIRECT mg/dL -- 0.2 I have reviewed all medications, laboratory results, and imaging pertinent for today's encounter. Associated attestation - Jared Gaspar MD - 04/21/2024 7:00 PM EDT I saw and examined the patient. I discussed the patient's care with the resident/JOE team. I agree with the note with the additions/clarifications below. 74 yo male with SBO in the setting of prior abdominal surgery without evidence for bowel ischemic transferred from OSH. Doing well. No new pain from baseline. + flatus. On exam, NAD. NGT in place. Abd is soft, ND, NT. SBFT with contrast in the colon. Plan for NGT removal, IVFs, sips of liquid, monitor exam, heparin subcutaneous. [facility] ACUTE CARE SURGERY - PROGRESS NOTE Patient Name: Lela Guerrier Admit Date: [id number] : 1950 AGE: 74 y.o. GENDER: male == TODAY'S ASSESSMENT AND PLAN OF CARE: 74 y.o. male with pmx of RA, COPD, prostate ca, bladder ca, CAD, PAD, BPH, HTN, GERD, colon ca, AAA, PAD, ileal conduit, cystectomy, prostatectomy, s/p peripheral artery angioplasty, s/p colectomy presented to OSH with abdominal pain nausea, emesis. CT concerning for SBO. Plan for gastrografin challenge today. NGT with 2L over 24h. TPN at goal, will have 1 L bolus for GI losses via NGT. Neuro - pain control with IV tylenol, dilaudid 0.3mg q3 PRN CV - q4h vitals - MAP>60 - holding home plavix - holding home lisinopril, amlodipine, statin while NPO Pulm - maintain O2>92 % - PRN albuterol GI - NGT to LIWS - NPO - gastrografin challenge today, keep NGT clamped after giving contrast - 1L bolus for GI losses through NGT - PICC line, TPN to goal today - LR at 50ml/hr - bisacodyl suppository - daily RFP - replete electrolytes PRN DVT: SQH Dispo: Not medically ready. D/w Dr. Hubert Garza, PGY-1 ACS Service [id number] == CHIEF COMPLAINT / EVENTS LAST 24HRS / HPI: NAEON. Having hard stools. Has abdominal pain, helped with dilaudid. No fevers or chills. No SOB or CP. PHYSICAL EXAM: Heart Rate: [73-85] Temp: [36.2 C (97.1 F)-36.6 C (97.9 F)] Resp: [18] BP: (163-177)/(69-75) Weight: [56.6 kg (124 lb 12.5 oz)] SpO2: [92 %-96 %] Physical Exam Constitutional: no acute distress, older gentleman, comfortable, conversational Neuro: A/O x4, no gross deficits Psych: normal affect HEENT: No deformities, no scleral icterus, NGT to LIWS with bilious thin output Cardiac: RRR Pulmonary: unlabored respirations on RA Abdomen: soft, mild distension, minimal tender, ileoconduit with urine, nonperitonitic Skin: warm and dry overall Extremities: no swelling noted MSK: moving all four IMAGING SUMMARY: (summary of new imaging findings, not a copy of dictation) NA LABS: Results from last 7 days Lab Units 04/20/24 0423 04/19/24 0908 WBC AUTO x10*3/uL 9.3 8.2 HEMOGLOBIN g/dL 10.2* 10.3* HEMATOCRIT % 31.2* 33.6* PLATELETS AUTO x10*3/uL 320 321 NEUTROS PCT AUTO % -- 83.3 LYMPHS PCT AUTO % -- 9.3 MONOS PCT AUTO % -- 6.0 EOS PCT AUTO % -- 0.5 Results from last 7 days Lab Units 04/19/24 0908 APTT seconds 28 INR 1.0 Results from last 7 days Lab Units 04/20/24 0423 04/19/24 0908 SODIUM mmol/L 148* 144 POTASSIUM mmol/L 3.3* 3.7 CHLORIDE mmol/L 104 105 CO2 mmol/L 35* 28 BUN mg/dL 23 26* CREATININE mg/dL 1.38* 1.40* CALCIUM mg/dL 8.5* 8.2* PROTEIN TOTAL g/dL -- 5.5* BILIRUBIN TOTAL mg/dL -- 0.5 ALK PHOS U/L -- 61 ALT U/L -- 8* AST U/L -- 14 GLUCOSE mg/dL 129* 124* Results from last 7 days Lab Units 04/19/24 0908 04/19/24 0409 BILIRUBIN TOTAL mg/dL 0.5 -- BILIRUBIN DIRECT mg/dL -- 0.2 I have reviewed all medications, laboratory results, and imaging pertinent for today's encounter. Associated attestation - Jared Gaspar MD - 04/21/2024 9:10 PM EDT I saw and examined the patient. I discussed the patient's care with the resident/JOE team. I agree with the note with the additions/clarifications below. Late entry for 04/20/24. 74 yo male with SBO in the setting of prior abdominal surgery without evidence for bowel ischemic transferred from OSH. Doing well. No new pain from baseline. Small BMs On exam, NAD. NGT in place. Abd is soft, ND, NT. Plan for NGT, NPO, IVFs, home meds, SBFT, monitor exam, heparin subcutaneous. 04/19/24 1121 Discharge Planning Living Arrangements Spouse/significant other Support Systems Spouse/significant other;Children Assistance Needed Patient independent prior to admission Type of Residence Private residence Number of Stairs to Enter Residence 2 Number of Stairs Within Residence 20 Do you have animals or pets at home? No Who is requesting discharge planning? Provider Home or Post Acute Services None Patient expects to be discharged to: Home NO Needs Does the patient need discharge transport arranged? No Financial Resource Strain How hard is it for you to pay for the very basics like food, housing, medical care, and heating? Not hard Housing Stability In the last 12 months, was there a time when you were not able to pay the mortgage or rent on time? N In the last 12 months, how many places have you lived? 1 In the last 12 months, was there a time when you did not have a steady place to sleep or slept in a custodial (including now)? N Transportation Needs In the past 12 months, has lack of transportation kept you from medical appointments or from getting medications? no In the past 12 months, has lack of transportation kept you from meetings, work, or from getting things needed for daily living? No Transitional Shingle Catcher Note: TCC met with patient introduced self and role to complete assessment (see above) and discuss discharge planning. Patient's and son at bedside during assessment, patient agreeable to family remaining at bedside during assessment. Patient confirmed demographics: [address]: [address] [place] [id number] Alternate/Emergency Contact: Julianne Guerrier () [phone] Patient Contact: DME: No DME Homecare: No Active Homecare Falls: 0 PCP: Arnie Chiang (seen 3 months ago) [facility] Insurance: [employer] Medicare Patient lives with in two story home. Patient independent prior to admission. Patient denies oxygen, dialysis, or diabetic needs. Patient discussed in morning rounds, per medical team (ACS) patient is not medically ready, NG tube remains in place. Plan for PICC and TPN pending possible OR plan. Discharge dispo: Plan for patient to discharge home with no needs. TCC informed and educated patient and family on discharge plan. Patient and family expressed understanding and agreeable to discharge plan. Family to assist with transportation home. Ale Oconnor RN BSN Transitional Shingle Catcher Pharmacy Medication History Review Lela Guerrier is a 74 y.o. male admitted for SBO (small bowel obstruction) (Multi). Pharmacy reviewed the patient's [id number] medications and allergies for accuracy. The list below reflects the updated CALCULATING MACHINE MECHANIC list. Prior to Admission Medications Prescriptions Patient / Chart Reported? acetaminophen-codeine (Tylenol w/ Codeine #4) 300-60 mg tablet Yes Sig: Take 1 tablet by mouth every 4 hours if needed. --> Last Fill 03/25/24, #150 / 30 day per [place] albuterol 90 mcg/actuation aerosol inhaler Yes Sig: Inhale 2 puffs every 4 hours if needed for wheezing. amLODIPine (Norvasc) 10 mg tablet Yes Sig: Take 1 tablet (10 mg) by mouth once daily in the morning. atorvastatin (Lipitor) 20 mg tablet Yes Sig: Take 1 tablet (20 mg) by mouth once daily in the morning. clopidogrel (Plavix) 75 mg tablet Yes Sig: Take 1 tablet (75 mg) by mouth once daily in the morning. docusate sodium (Colace) 100 mg capsule Yes Sig: Take 1 capsule (100 mg) by mouth once daily. gabapentin (Neurontin) 300 mg capsule Yes Sig: Take 1 capsule (300 mg) by mouth 3 times a day. For nerve pain --> Last Fill 01/08/24, #540 / 90 day per [place] ibuprofen 800 mg tablet Yes Sig: Take 1 tablet (800 mg) by mouth every 8 hours if needed (pain). lisinopril 20 mg tablet Yes Sig: Take 1 tablet (20 mg) by mouth once daily in the morning. ondansetron ODT (Zofran-ODT) 4 mg disintegrating tablet Yes Sig: Take 1 tablet (4 mg) by mouth every 8 hours if needed for nausea. predniSONE (Deltasone) 10 mg tablet Yes Sig: Take 1 tablet (10 mg) by mouth once daily as needed (allergy symptoms). The list below reflects the updated allergy list. Please review each documented allergy for additional clarification and justification. Allergies Reviewed by Minor Benson [facility] on 04/19/2024 Severity Reactions Comments Bactrim [sulfamethoxazole-trimethoprim] Low Nausea/vomiting Pt states makes him feel sick. Patient declines M2B at discharge. Local Pharmacy if needed: [facility] [phone] Sources used to complete the med history include: [facility], Transfer paperwork (Home Medications) Patient Interview (able to recognize/confirm using med name prompting) [place] (gabapentin 300 mg, APAP/codeine #4) Call to 24 hour [facility] to verify local fill history Below are additional concerns with the patient's CALCULATING MACHINE MECHANIC list: At the time of this note, there is limited electronic chart information available. [No CareEverywhere, No Epic Dispense Report, No Chart Review]. Medications have been entered into CALCULATING MACHINE MECHANIC List as appears on [facility] Home Medications [transfer paperwork]. (Confirmed by patient in interview.) Unable to verify pharmacy fill history overnight. (Patient uses [facility], , open 8am-11pm). [facility] in [place] also utilized (but no maintenance medication history found there when called.) Will attempt to further verify fill history when able (or when more electronic information available). Minor Benson PharmD, [facility] Transitions of Care Pharmacist Medication reconciliation complete Please reach out via [employer] Secure Chat for questions, or if no response call [phone] or servtagRec. [facility] documented in this encounter [facility] Work Phone: 05-10-2024 Miscellaneous Notes The patient's goals for the shift include discharge planning The clinical goals for the shift include pt will be HD stable Mr. Guerrier is a 74 yo M with pmh of RA, COPD, prostate ca, baldder ca,\CAD, PAD, BPH, HTN, GERD, Colon ca, AAA, ileal condiut, cystectomy, prostatectomy, s/p peripheral artey angioplasty, s/p colectomy that presented with SBO. Patient was taken to the OR on 04/30 for ex-lap and EDIS. He tolerated the procedure well. He was intermediately placed on TPN while transitioning to a diet. At the time of discharge, patient's pain was controlled with oral analgesia, patient was urinating, having BMs, sleeping, and eating well. Based on PT/OT's recommendation, patient was discharged home with scripts and follow up appointments. Discharge plan was discussed with the patient and all of the patient's questions were answered. Patient declined SNF and will go home with outpatient PT. [facility] set up PT in [place] for patient. Problem: Pain - Adult Goal: Verbalizes/displays adequate comfort level or baseline comfort level Outcome: Progressing Problem: Safety - Adult Goal: Free from fall injury Outcome: Progressing The patient's goals for the shift include The clinical goals for the shift include pt will be free from falls, maintain HDS, and pain will be controlled throughout shift The patient's goals for the shift include rest The clinical goals for the shift include pt will be HD stable Problem: Pain - Adult Goal: Verbalizes/displays adequate comfort level or baseline comfort level Outcome: Progressing Problem: Safety - Adult Goal: Free from fall injury Outcome: Progressing The patient's goals for the shift include The clinical goals for the shift include pt will remian HDS, free from falls, and nausea will cease throughout shift The patient's goals for the shift include The clinical goals for the shift include sys less then 160 The patient's goals for the shift include The clinical goals for the shift include pt will remain in calm and safe environment throughout shift Problem: Pain - Adult Goal: Verbalizes/displays adequate comfort level or baseline comfort level Outcome: Progressing Problem: Safety - Adult Goal: Free from fall injury Outcome: Progressing Problem: Discharge Planning Goal: Discharge to home or other facility with appropriate resources Outcome: Progressing Problem: Chronic Conditions and Co-morbidities Goal: Patient's chronic conditions and co-morbidity symptoms are monitored and maintained or improved Outcome: Progressing Problem: Fall/Injury Goal: Not fall by end of shift Outcome: Progressing Goal: Be free from injury by end of the shift Outcome: Progressing Goal: Verbalize understanding of personal risk factors for fall in the hospital Outcome: Progressing Goal: Verbalize understanding of risk factor reduction measures to prevent injury from fall in the home Outcome: Progressing Goal: Use assistive devices by end of the shift Outcome: Progressing Goal: Pace activities to prevent fatigue by end of the shift Outcome: Progressing Problem: Skin Goal: Decreased wound size/increased tissue granulation at next dressing change Outcome: Progressing Flowsheets (Taken 05/07/202454) Decreased wound size/increased tissue granulation at next dressing change: Promote sleep for wound healing Goal: Participates in plan/prevention/treatment measures Outcome: Progressing Flowsheets (Taken 05/07/202454) Participates in plan/prevention/treatment measures: Discuss with provider PT/OT consult Elevate heels Goal: Prevent/manage excess moisture Outcome: Progressing Flowsheets (Taken 05/07/202454) Prevent/manage excess moisture: Monitor for/manage infection if present Moisturize dry skin Cleanse incontinence/protect with barrier cream Goal: Prevent/minimize sheer/friction injuries Outcome: Progressing Flowsheets (Taken 05/07/202454) Prevent/minimize sheer/friction injuries: Use pull sheet HOB 30 degrees or less Increase activity/out of bed for meals Goal: Promote/optimize nutrition Outcome: Progressing Flowsheets (Taken 05/07/202454) Promote/optimize nutrition: Discuss with provider if NPO > 2 days Goal: Promote skin healing Outcome: Progressing Flowsheets (Taken 05/07/202454) Promote skin healing: Protective dressings over bony prominences Assess skin/pad under line(s)/device(s) Ensure correct size (line/device) and apply per crawler dragline operator instructions Rotate device position/do not position patient on device Problem: Pain Goal: Takes deep breaths with improved pain control throughout the shift Outcome: Progressing Goal: Turns in bed with improved pain control throughout the shift Outcome: Progressing Goal: Walks with improved pain control throughout the shift Outcome: Progressing Goal: Performs ADL's with improved pain control throughout shift Outcome: Progressing Goal: Participates in PT with improved pain control throughout the shift Outcome: Progressing Goal: Free from opioid side effects throughout the shift Outcome: Progressing Goal: Free from acute confusion related to pain meds throughout the shift Outcome: Progressing Problem: Pain - Adult Goal: Verbalizes/displays adequate comfort level or baseline comfort level Outcome: Progressing Problem: Safety - Adult Goal: Free from fall injury Outcome: Progressing Problem: Discharge Planning Goal: Discharge to home or other facility with appropriate resources Outcome: Progressing Problem: Chronic Conditions and Co-morbidities Goal: Patient's chronic conditions and co-morbidity symptoms are monitored and maintained or improved Outcome: Progressing Problem: Fall/Injury Goal: Not fall by end of shift Outcome: Progressing Goal: Be free from injury by end of the shift Outcome: Progressing Goal: Verbalize understanding of personal risk factors for fall in the hospital Outcome: Progressing Goal: Verbalize understanding of risk factor reduction measures to prevent injury from fall in the home Outcome: Progressing Goal: Use assistive devices by end of the shift Outcome: Progressing Goal: Pace activities to prevent fatigue by end of the shift Outcome: Progressing Problem: Skin Goal: Decreased wound size/increased tissue granulation at next dressing change Outcome: Progressing Goal: Participates in plan/prevention/treatment measures Outcome: Progressing Goal: Prevent/manage excess moisture Outcome: Progressing Goal: Prevent/minimize sheer/friction injuries Outcome: Progressing Goal: Promote/optimize nutrition Outcome: Progressing Goal: Promote skin healing Outcome: Progressing Problem: Pain Goal: Takes deep breaths with improved pain control throughout the shift Outcome: Progressing Goal: Turns in bed with improved pain control throughout the shift Outcome: Progressing Goal: Walks with improved pain control throughout the shift Outcome: Progressing Goal: Performs ADL's with improved pain control throughout shift Outcome: Progressing Goal: Participates in PT with improved pain control throughout the shift Outcome: Progressing Goal: Free from opioid side effects throughout the shift Outcome: Progressing Goal: Free from acute confusion related to pain meds throughout the shift Outcome: Progressing The patient's goals for the shift include The clinical goals for the shift include pain control Problem: Pain - Adult Goal: Verbalizes/displays adequate comfort level or baseline comfort level Outcome: Progressing Problem: Safety - Adult Goal: Free from fall injury Outcome: Progressing The patient's goals for the shift include The clinical goals for the shift include pt pain will be managed, remain free from falls, and have decreased gastric content production throughout shift Problem: Pain - Adult Goal: Verbalizes/displays adequate comfort level or baseline comfort level Outcome: Progressing Problem: Safety - Adult Goal: Free from fall injury Outcome: Progressing The patient's goals for the shift include The clinical goals for the shift include pt pain will be controlled, remain HDS, and understand importance of medical interventions throughout shift The patient's goals for the shift include The clinical goals for the shift include Pain control The patient's goals for the shift include The clinical goals for the shift include pain management Problem: Pain Goal: Takes deep breaths with improved pain control throughout the shift Outcome: Progressing Goal: Turns in bed with improved pain control throughout the shift Outcome: Progressing Goal: Walks with improved pain control throughout the shift Outcome: Progressing Goal: Performs ADL's with improved pain control throughout shift Outcome: Progressing Goal: Participates in PT with improved pain control throughout the shift Outcome: Progressing Goal: Free from opioid side effects throughout the shift Outcome: Progressing Goal: Free from acute confusion related to pain meds throughout the shift Outcome: Progressing Problem: Pain - Adult Goal: Verbalizes/displays adequate comfort level or baseline comfort level Outcome: Progressing Problem: Safety - Adult Goal: Free from fall injury Outcome: Progressing Problem: Discharge Planning Goal: Discharge to home or other facility with appropriate resources Outcome: Progressing Problem: Skin Goal: Decreased wound size/increased tissue granulation at next dressing change Recent Flowsheet Documentation Taken 05/02/20242247 by Prisca Walker RN Decreased wound size/increased tissue granulation at next dressing change: Promote sleep for wound healing Protective dressings over bony prominences Goal: Prevent/manage excess moisture Recent Flowsheet Documentation Taken 05/02/20242247 by Prisca Walker RN Prevent/manage excess moisture: Cleanse incontinence/protect with barrier cream Monitor for/manage infection if present Problem: Skin Goal: Decreased wound size/increased tissue granulation at next dressing change Outcome: Progressing Flowsheets (Taken 05/02/20242247) Decreased wound size/increased tissue granulation at next dressing change: Promote sleep for wound healing Protective dressings over bony prominences Goal: Participates in plan/prevention/treatment measures Outcome: Progressing Flowsheets (Taken 04/28/20242257 by Shpresa Culaj, RN) Participates in plan/prevention/treatment measures: Elevate heels Goal: Prevent/manage excess moisture Outcome: Progressing Flowsheets (Taken 05/02/2024 9817) Prevent/manage excess moisture: Cleanse incontinence/protect with barrier cream Monitor for/manage infection if present Goal: Prevent/minimize sheer/friction injuries Outcome: Progressing Flowsheets (Taken 04/29/2024 1650 by Sarah Self, RN) Prevent/minimize sheer/friction injuries: Complete micro-shifts as needed if patient unable. Adjust patient position to relieve pressure points, not a full turn Increase activity/out of bed for meals Use pull sheet HOB 30 degrees or less Turn/reposition every 2 hours/use positioning/transfer devices Utilize specialty bed per algorithm Goal: Promote/optimize nutrition Outcome: Progressing Flowsheets (Taken 04/28/20241 by Earl Mistry RN) Promote/optimize nutrition: Monitor/record intake including meals Goal: Promote skin healing Outcome: Progressing Problem: Fall/Injury Goal: Not fall by end of shift Outcome: Progressing Goal: Be free from injury by end of the shift Outcome: Progressing Goal: Verbalize understanding of personal risk factors for fall in the hospital Outcome: Progressing Goal: Verbalize understanding of risk factor reduction measures to prevent injury from fall in the home Outcome: Progressing Goal: Use assistive devices by end of the shift Outcome: Progressing Goal: Pace activities to prevent fatigue by end of the shift Outcome: Progressing The patient's goals for the shift include pain management The clinical goals for the shift include pain management PATIENT: LELA GUERRIER : 1950 ADMIT DATE: 04/19/2024 2:23 AM DISCH DATE: RESPONDING PROVIDER #: [id number] PROVIDER RESPONSE TEXT: Moderate Protein Calorie Malnutrition CDI QUERY TEXT: Clarification Instruction: Based on your assessment of the patient and the clinical information, please provide the requested documentation by clicking on the appropriate radio button and enter any additional information if prompted. Question: Please further clarify this patient nutritional status as When answering this query, please exercise your independent professional judgment. The fact that a question is being asked, does not imply that any particular answer is desired or expected. The patient's clinical indicators include: Clinical Information: 04/19/2024H&P: 74 y.o. male with pmx of RA, COPD, prostate ca, bladder ca, CAD, PAD, BPH, HTN, GERD, colon ca, AAA, PAD, ileal conduit, cystectomy, prostatectomy, s/p peripheral artery angioplasty, s/p colectomy presented to OSH with abdominal pain nausea, emesis. CT scan demonstrated SBO. Patient transferred to [facility] for further evalation. Clinical Indicators: BMI 19.64 04/19/2024 nutrition consult:mild muscle loss and subcutaneous fat loss, oral intake <75% estimated needs over the last 5 days or so. Malnutrition Diagnosis Patient has Malnutrition Diagnosis: Yes Diagnosis Status: New Treatment: Nutrition consult, ?parenteral nutrition support @ goal + lipids = 1778 kcal, 90 g protein, 2050 ml total volume Risk Factors: SBO. NPO, TPN, Options provided: -- Moderate Protein Calorie Malnutrition -- Other - I will add my own diagnosis -- Refer to Clinical Documentation Reviewer Query created by: Adrienne Tomlinson on 04/23/2024 2:53 PM Electronically signed by: BRENNA KU MD 05/02/2024 8:23 AM PATIENT: LELA GUERRIER : 1950 ADMIT DATE: 04/19/2024 2:23 AM DISCH DATE: RESPONDING PROVIDER #: [id number] PROVIDER RESPONSE TEXT: small bowel obstruction CDI QUERY TEXT: Clarification Instruction: Based on your assessment of the patient and the clinical information, please provide the requested documentation by clicking on the appropriate radio button and enter any additional information if prompted. Question: Please further clarify if there is a diagnosis related to the clinical information When answering this query, please exercise your independent professional judgment. The fact that a question is being asked, does not imply that any particular answer is desired or expected. The patient's clinical indicators include: Clinical Information: 04/19/2024 H&P:74 y.o. male with pmx of RA, COPD, prostate ca, bladder ca, CAD, PAD, BPH, HTN, GERD, colon ca, AAA, PAD, ileal conduit, cystectomy, prostatectomy, s/p peripheral artery angioplasty, s/p colectomy presented to OSH with abdominal pain nausea, emesis. CT scan demonstrated SBO. Patient transferred to [facility] for further evalation. Clinical Indicators: 04/22 WBC 13.1 Pulse 04/22/24 - 04/23/24 83, 101, 67, 105, and 100 LR bolus 1,000ML Pulse 04/22/24 - 04/23/24 83, 101, 67, 105, and 100 Treatment: VS q4, LR bolus 1,000ML daily CBC Risk Factors: SBO, Feculant NG output Options provided: -- Non-infectious SIRS without acute organ dysfunction -- Other - I will add my own diagnosis -- Refer to Clinical Documentation Reviewer Query created by: Adrienne Tomlinson on 04/23/2024 2:42 PM Electronically signed by: BRENNA KU MD 05/02/2024 8:23 AM Post Procedure Check POD#0 s/p ex lap, lysis of adhesions S: Pt laying in bed comfortable with NG tube in place. Denies f/c/n/v/cp/sob. Pain controlled. O: T: 37, P: 105, BP: 105/56, R: 15 ,O2: 97 (on RA) Gen: AAOx3, NAD CVS: mildly tachycardic Pulm: nonlabored breathing, chest rise equal bilaterally Abd: soft, appropriately tender, nondistended, midline incision is stapled without surrounding erythema, urostomy is pink draining clear yellow uring Extrem: No edema, CHILDS, SCD in place A/P: yo POD#0 s/p ex lap, lysis of adhesions - Keep NG tube in place - Keep NPO, advance diet as tolerated - optimize pain management Alize Copeland MD PGY1 Acute Care Surgery Pager [phone]: Labs send per MD request and order. 1127: MD Winston states patients ABG looks good. Awaiting results from CBC/RFP 1220: FELT HANGER Pump set up per MD order. Patient education attempted, patient did not demonstrate understanding at this time due to drowsiness. Will reattempt education when patient more awake. FELT HANGER button out of reach of patient until education can be completed. Patient resting comfortably with no signs of distress or pain, equal chest rise and fall noted. 1245: [facility] paged regarding labs, ACS states lab work looks good and is good to return to LT8 1300: Education provided regarding FELT HANGER use. Patient shook head in understanding and gave verbal speak back. No further questions at this time. FELT HANGER button given to patient. Exploration Laparotomy EDIS Operative Note Date: 04/30/2024 OR Location: [facility] OR Name: Lela Guerrier, : 1950, Age: 74 y.o., , Sex: male Diagnosis Pre-op Diagnosis * SBO (small bowel obstruction) (Multi) [K56.609] Post-op Diagnosis * SBO (small bowel obstruction) (Multi) [K56.609] Procedures Exploration Laparotomy EDIS 37955 - TX EXPLORATORY LAPAROTOMY CELIOTOMY W/WO BIOPSY SPX Exploration Laparotomy EDIS 48539 - TX EXPLORATORY LAPAROTOMY CELIOTOMY W/WO BIOPSY SPX Surgeons * Dileep Larios - Primary Resident/Fellow/Other Circle Edger: Surgeons and Role: * Bashir Loredo MD - Resident - Assisting Procedure Summary Anesthesia: General ASA: III Anesthesia Staff: Anesthesiologist: Brain Chau MD C-AA: JAMES Arias; JAMES Vale IKE: Doc Vargas Estimated Blood Loss: 0mL for urologic portion Intra-op Medications: Administrations occurring from 0715 to 0950 on 04/30/24: Medication Name Total Dose sodium chloride 0.9 % irrigation solution 3,000 mL sterile water irrigation solution 1,000 mL amLODIPine (Norvasc) tablet 10 mg Cannot be calculated bisacodyl (Dulcolax) suppository 10 mg Cannot be calculated insulin lispro (HumaLOG) injection 0-5 Units Cannot be calculated lisinopril tablet 20 mg Cannot be calculated sodium chloride 0.9 % bolus 500 mL Cannot be calculated Anesthesia Record Intraprocedure I/O Totals Intake LR bolus 2000.00 mL Total Intake 2000 mL Output Urine 85 mL NG/OG Tube Output 400 mL Total Output 485 mL Net Net Volume 1515 mL Specimen: No specimens collected Staff: Coffee Sampler: Nancy Gandhi Person: Clemente Coffee Sampler: Nishi Gandhi Person: Halina Drains and/or Catheters: NG/OG/Feeding Tube Left nostril (Active) Tube Status Low intermittent suction 04/30/24 0650 Placement Verification X-ray 04/29/24 2030 Gastric Aspirate Grassy green (gastric) 04/30/24 0650 Distal Tube Measurement 63 cm 04/23/24 1039 Site Assessment Clean;Dry;Intact 04/30/24 0650 Irrigant Sterile water 04/20/24 2322 Response To Intervention No resistance met 04/23/24 1039 Tube Securement Nasal bridle 04/30/24 0650 Intake (mL) 0 mL 04/23/24 1039 Intake - Flush (mL) 0 mL 04/23/24 1039 Output (mL) 250 mL 04/30/24 0650 Gastric Aspirate - Residual Returned 400 mL 04/26/24 2300 Urostomy RLQ (Active) Stomal Appliance 2 piece;Clean;Dry;Intact 04/30/24 1026 Site/Stoma Assessment Clean;Intact 04/30/24 0650 Stoma Size (cm) 2.5 cm 04/26/24 1100 Peristomal Assessment Clean;Intact 04/30/24 1026 Treatment Pouch change 04/30/24 1026 Output (mL) 150 mL 04/30/24 0200 [REMOVED] Chest Tube Left Fifth intercostal space;Pleural (Removed) Function Other (Comment) 04/23/24 1638 Chest Tube Air Leak No 04/23/24 1038 Patency Intervention Tip/tilt 04/23/24 1038 Drainage Description Serosanguineous 04/23/24 1038 Dressing Status Clean;Dry 04/27/24 0226 Site Assessment Not assessed 04/27/24 0226 Surrounding Skin Intact 04/25/24 0929 Output (mL) 0 mL 04/26/24 0600 Findings: Ileal conduit pink and healthy with intact mesentary. No gross injuries to entire length of conduit. Butt of conduit without gross injury. Indications: Lela Guerrier is an 74 y.o. male who is having surgery for SBO (small bowel obstruction) (Multi) [K56.609]. Patient with history of cystoprostatectomy (2016) who presented to [facility] with SBO, currently in OR with [facility] for Exploratory laparotomy with lysis of adhesions. Urology consulted intraoperatively to assess conduit and assist with possible conduit takedown if needed. Procedure Details: Urology consulted intraoperatively to assess ileal conduit due to dense surrounding adhesions and possible conduit takedown. Patient had been anesthetized and ACS had begun their Exploratory Laparotomy when urology was called to assess ileal conduit. Abdomen was open and ileal conduit was exposed. Just prior to assessing, adhesion had been released and bowel lateral to conduit was freed to assess.Conduit takedown was not needed as rest of bowel was freed and accessible to ACS team. Dilated loops of small bowel were noted. Ileal conduit noted in right lower quadrant. Keita balloon palpable in conduit. Conduit was assessed without any gross enterotmies. Mesentery was assessed and intact. Conduit pink and healthy. Followed conduit closer to butt, without any injuries. To give fluorescein to assess any leakage of urine to assess ureters, and backfill conduit to assess for enterotomies. Discussed with ACS that conduit backfill test was negative for leaks and no fluorescein seen in abdomen. Turned back over to ACS team for remainder of procedure. Complications: None; patient tolerated the procedure well. Disposition: ACS team for remainder of procedure Condition: stable Additional Details: Attending Attestation: Exploration Laparotomy EDIS Operative Note Date: 04/30/2024 OR Location: [facility] OR Name: Lela Guerrier, : 1950, Age: 74 y.o., , Sex: male Diagnosis Pre-op Diagnosis * SBO (small bowel obstruction) (Multi) [K56.609] Post-op Diagnosis * SBO (small bowel obstruction) (Multi) [K56.609] Procedures Exploration Laparotomy EDIS 41608 - TX EXPLORATORY LAPAROTOMY CELIOTOMY W/WO BIOPSY SPX Exploration Laparotomy EDIS 13058 - TX EXPLORATORY LAPAROTOMY CELIOTOMY W/WO BIOPSY SPX Exploratory laparotomy, lysis of adhesions Surgeons * Dileep Larios - Primary Resident/Fellow/Other Circle Edger: STEPHANIE Winston Procedure Summary Anesthesia: General ASA: III Anesthesia Staff: Anesthesiologist: Brain Chau MD C-AA: JAMES Arias; JAMES Vale IKE: Doc Vargas Estimated Blood Loss: 200 mL Intra-op Medications: Administrations occurring from 0715 to 0950 on 04/30/24: Medication Name Total Dose sodium chloride 0.9 % irrigation solution 3,000 mL sterile water irrigation solution 1,000 mL bisacodyl (Dulcolax) suppository 10 mg Cannot be calculated insulin lispro (HumaLOG) injection 0-5 Units Cannot be calculated sodium chloride 0.9 % bolus 500 mL Cannot be calculated Anesthesia Record Intraprocedure I/O Totals Intake LR bolus 2000.00 mL Total Intake 2000 mL Output Urine 85 mL NG/OG Tube Output 400 mL Total Output 485 mL Net Net Volume 1515 mL Specimen: No specimens collected Staff: Coffee Sampler: Nancy Gandhi Person: Clemente Coffee Sampler: Nishi Gandhi Person: Halina Drains and/or Catheters: NG/OG/Feeding Tube Left nostril (Active) Tube Status Low intermittent suction 04/30/24 1045 Placement Verification Measurements 04/30/24 1330 Gastric Aspirate Grassy green (gastric) 04/30/24 1330 Distal Tube Measurement 68 cm 04/30/24 1045 Site Assessment Clean;Intact;Dry 04/30/24 1923 Irrigant Sterile water 04/20/24 2322 Response To Intervention No resistance met 04/23/24 1039 Tube Securement Taped to nostril center 04/30/24 1045 Intake (mL) 0 mL 04/23/24 1039 Intake - Flush (mL) 0 mL 04/23/24 1039 Output (mL) 300 mL 04/30/24 1830 Gastric Aspirate - Residual Returned 400 mL 04/26/24 2300 Urostomy RLQ (Active) Stomal Appliance 2 piece;Clean;Dry;Intact 04/30/24 1330 Site/Stoma Assessment [place]ity;Clean;Intact 04/30/24 1330 Stoma Size (cm) 2.5 cm 04/26/24 1100 Peristomal Assessment Clean;Intact 04/30/24 1330 Treatment Pouch change 04/30/24 1026 Output (mL) 150 mL 04/30/242017 Findings: Dense adhesions mainly in RLQ 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 Multiple transition points. No threatened bowel. Bowel able to be run from ligament of Treitz to colon. Indications: Lela Guerrier is an 74 y.o. male who is having surgery for SBO (small bowel obstruction) (Multi) [K56.609]. Patient had failed non-operative management. Although he had a small amount of contrast pass into his colon, his NG continued to put out >1 L each day. Ultimately had a long discussion with the patient, his , and two additional family members. Described the hospital course to date and the inability to successfully remove the patient's NG tube. We discussed the tests so far that have showed some contrast pass into the colon, but he continues to have high NG output. All family members expressed interest in pursuing an operation. They understood the potential risks, but felt it was important to try and progress things forward The patient was seen in the preoperative area. The risks, benefits, complications, treatment options, non-operative alternatives, expected recovery and outcomes were discussed with the patient. The possibilities of reaction to medication, pulmonary aspiration, injury to surrounding structures, bleeding, recurrent infection, the need for additional procedures, failure to diagnose a condition, and creating a complication requiring transfusion or operation were discussed with the patient. The patient concurred with the proposed plan, giving informed consent. The site of surgery was properly noted/marked if necessary per policy. The patient has been actively warmed in preoperative area. Preoperative antibiotics have been ordered and given within 1 hours of incision. Venous thrombosis prophylaxis have been ordered including bilateral sequential compression devices and chemical prophylaxis Procedure Details: Patient was placed supine on the OR table with arms out. A time out was performed and confirmed the patient's name, MRN, , and planned procedure. Anesthesia was induced without issues. Prepped and draped in sterile fashion. A pre-incisiion timeout was performed. A midline laparotomy was made from xiphoid to below the umbilical. Subcutaneous tissues were divided with cautery towards the superior aspect of the incision, as the patient did not have any scars superiorly. The abdomen was entered sharply.without injuries.After extending the fascial incision inferiorly, we explored the abdomen. There were many dilated loops of bowel and several decompressed loops distally. There was no threatened bowel. We began sharply lysing adhesions. Most of the adhesions were in the right lower quadrant in the pelvis and behind the ileal conduit. We asked urology to inspect the ileal conduit intraoperatively (see separate note). There was one particularly dense adhesion on the right pelvic sidewall which seemed to be the transition point. After this was lysed, we were able to run the bowel from ligament of Treitz to colon. There was no other obstructing adhesions. The ileal conduit was back filled with saline without obvious leak. There was one small possible serosal injury in the mid jejunum which was repaired with interrupted 3-0 vicryl sutures. Several sheets of seprafilm were placed in the abdomen in an attempt to prevent future adhesive disease. The abdomen was closed with #1 PDS and skin was closed with edd. All sponge, needle, and instrument counts were correct at the end of the case. Patient was extubated and taken to PACU. Complications: None; patient tolerated the procedure well. Disposition: PACU - hemodynamically stable. Condition: stable Attending Attestation: I was present, scrubbed and guided the chief resident during the entire procedure. Dileep Larios Date: 04/30/2024 OR Location: [facility] OR Name: Lela Guerrier, : 1950, Age: 74 y.o., , Sex: male Diagnosis Pre-op Diagnosis * SBO (small bowel obstruction) (Multi) [K56.609] Post-op Diagnosis * SBO (small bowel obstruction) (Multi) [K56.609] Procedures Exploratory laparotomy, lysis of adhesions Surgeons * Dileep Larios - Primary Resident/Fellow/Other Circle Edger: Surgeons and Role: * Bashir Loredo MD - Resident - Assisting Procedure Summary Anesthesia: General ASA: III Anesthesia Staff: Anesthesiologist: Brain Chau MD C-AA: JAMES Arias; JAMES Vale IKE: Doc Vargas Estimated Blood Loss: 200 mL Intra-op Medications: Administrations occurring from 0715 to 0950 on 04/30/24: Medication Name Total Dose sodium chloride 0.9 % irrigation solution 3,000 mL sterile water irrigation solution 1,000 mL amLODIPine (Norvasc) tablet 10 mg Cannot be calculated bisacodyl (Dulcolax) suppository 10 mg Cannot be calculated insulin lispro (HumaLOG) injection 0-5 Units Cannot be calculated lisinopril tablet 20 mg Cannot be calculated sodium chloride 0.9 % bolus 500 mL Cannot be calculated Anesthesia Record Intraprocedure I/O Totals Intake LR bolus 2000.00 mL Total Intake 2000 mL Output Urine 85 mL NG/OG Tube Output 400 mL Total Output 485 mL Net Net Volume 1515 mL Specimen: No specimens collected Staff: Coffee Sampler: Nancy Carvajalub Person: Clemente Coffee Sampler: Nishi Carvajalub Person: Halina Findings: Dense adhesions mainly in RLQ 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 Multiple transition points. No threatened bowel. Bowel able to be run from ligament of Treitz to colon. Ileal conduit back filled with saline without evidence of leak Complications: None; patient tolerated the procedure well. Disposition: PACU - hemodynamically stable. Condition: stable Specimens Collected: No specimens collected Attending Attestation: Dileep Larios Had a long discussion with the patient, his , and two additional family members this afternoon. Described our hospital course to date and out inability to successfully remove his NG tube. We discussed the tests so far that have showed some contrast pass into the colon, but he continues to have high NG output. We discussed a few options Continue Npo, NGT, TPN Decompressive PEG with TPN Operative exploration After a long discussion about risks and benefits of each, all family members expressed interest in pursuing an operation. They understood the potential risks, but felt it was important to try and progress things forward. Will plan for exploratory laparotomy and other indicated procedures. We discussed that the patient may have a frozen abdomen in which we would plan to place a decompressive G tube. STEPHANIE Winston [facility] Problem: Pain - Adult Goal: Verbalizes/displays adequate comfort level or baseline comfort level Outcome: Progressing Problem: Safety - Adult Goal: Free from fall injury Outcome: Progressing Problem: Discharge Planning Goal: Discharge to home or other facility with appropriate resources Outcome: Progressing Problem: Chronic Conditions and Co-morbidities Goal: Patient's chronic conditions and co-morbidity symptoms are monitored and maintained or improved Outcome: Progressing Problem: Fall/Injury Goal: Not fall by end of shift Outcome: Progressing Goal: Be free from injury by end of the shift Outcome: Progressing Goal: Verbalize understanding of personal risk factors for fall in the hospital Outcome: Progressing Goal: Verbalize understanding of risk factor reduction measures to prevent injury from fall in the home Outcome: Progressing Goal: Use assistive devices by end of the shift Outcome: Progressing Goal: Pace activities to prevent fatigue by end of the shift Outcome: Progressing Problem: Skin Goal: Decreased wound size/increased tissue granulation at next dressing change Outcome: Progressing Goal: Participates in plan/prevention/treatment measures Outcome: Progressing Goal: Prevent/manage excess moisture Outcome: Progressing Goal: Prevent/minimize sheer/friction injuries Outcome: Progressing Goal: Promote/optimize nutrition Outcome: Progressing Goal: Promote skin healing Outcome: Progressing The patient's goals for the shift include The clinical goals for the shift include pain control Problem: Pain - Adult Goal: Verbalizes/displays adequate comfort level or baseline comfort level Outcome: Progressing Problem: Safety - Adult Goal: Free from fall injury Outcome: Progressing Problem: Skin Goal: Participates in plan/prevention/treatment measures Recent Flowsheet Documentation Taken 04/28/2024 1168 by Earl Mistry RN Participates in plan/prevention/treatment measures: Elevate heels Problem: Fall/Injury Goal: Not fall by end of shift Outcome: Progressing Goal: Be free from injury by end of the shift Outcome: Progressing Goal: Verbalize understanding of personal risk factors for fall in the hospital Outcome: Progressing Goal: Verbalize understanding of risk factor reduction measures to prevent injury from fall in the home Outcome: Progressing Goal: Use assistive devices by end of the shift Outcome: Progressing Goal: Pace activities to prevent fatigue by end of the shift Outcome: Progressing The patient's goals for the shift include The clinical goals for the shift include Patient will remain safe, stable and have pain well-controlled throughout this shift The patient's goals for the shift include pain control The clinical goals for the shift include pain management, patientwill remain HDS throughout shift Problem: Pain - Adult Goal: Verbalizes/displays adequate comfort level or baseline comfort level 04/28/2024 1037 by Gabrielle Blevins RN Outcome: Progressing 04/28/2024 1037 by Gabrielle Blevins RN Outcome: Progressing Problem: Safety - Adult Goal: Free from fall injury 04/28/2024 1037 by Gabrielle Blevins RN Outcome: Progressing 04/28/2024 1037 by Gabrielle Blevins RN Outcome: Progressing Problem: Discharge Planning Goal: Discharge to home or other facility with appropriate resources 04/28/2024 1037 by Gabrielle Blevins RN Outcome: Progressing 04/28/2024 1037 by Gabrielle Blevins RN Outcome: Progressing Problem: Chronic Conditions and Co-morbidities Goal: Patient's chronic conditions and co-morbidity symptoms are monitored and maintained or improved 04/28/2024 1037 by Gabrielle Blevins RN Outcome: Progressing 04/28/2024 1037 by Gabrielle Blevins RN Outcome: Progressing Problem: Fall/Injury Goal: Not fall by end of shift 04/28/2024 1037 by Gabrielle Blevins RN Outcome: Progressing 04/28/2024 1037 by Gabrielle Blevins RN Outcome: Progressing Goal: Be free from injury by end of the shift 04/28/2024 1037 by Gabrielle Blevins RN Outcome: Progressing 04/28/2024 1037 by Gabrielle Blevins RN Outcome: Progressing Goal: Verbalize understanding of personal risk factors for fall in the hospital 04/28/2024 1037 by Gabrielle Blevins RN Outcome: Progressing 04/28/2024 1037 by Gabrielle Blevins RN Outcome: Progressing Goal: Verbalize understanding of risk factor reduction measures to prevent injury from fall in the home 04/28/2024 1037 by Gabrielle Blevins RN Outcome: Progressing 04/28/2024 1037 by Gabrielle Blevins RN Outcome: Progressing Goal: Use assistive devices by end of the shift 04/28/2024 1037 by Gabrielle Blevins RN Outcome: Progressing 04/28/2024 1037 by Gabrielle Blevins RN Outcome: Progressing Goal: Pace activities to prevent fatigue by end of the shift 04/28/2024 1037 by Gabrielle Blevins RN Outcome: Progressing 04/28/2024 1037 by Gabrielle Blevins RN Outcome: Progressing Problem: Skin Goal: Decreased wound size/increased tissue granulation at next dressing change 04/28/2024 1037 by Gabrielle Blevins RN Outcome: Progressing 04/28/2024 1037 by Gabrielle Blevins RN Outcome: Progressing Flowsheets (Taken 04/28/2024 1037) Decreased wound size/increased tissue granulation at next dressing change: Utilize specialty bed per algorithm Promote sleep for wound healing Goal: Participates in plan/prevention/treatment measures 04/28/2024 1037 by Gabrielle Blevins RN Outcome: Progressing 04/28/2024 1037 by Gabrielle Blevins RN Outcome: Progressing Flowsheets (Taken 04/28/2024 1037) Participates in plan/prevention/treatment measures: Discuss with provider PT/OT consult Increase activity/out of bed for meals Goal: Prevent/manage excess moisture 04/28/2024 1037 by Gabrielle Blevins RN Outcome: Progressing 04/28/2024 1037 by Gabrielle Blevins RN Outcome: Progressing Goal: Prevent/minimize sheer/friction injuries 04/28/2024 1037 by Gabrielle Blevins RN Outcome: Progressing 04/28/2024 1037 by Gabrielle Blevins RN Outcome: Progressing Goal: Promote/optimize nutrition 04/28/2024 1037 by Gabrielle Blevins RN Outcome: Progressing 04/28/2024 1037 by Gabrielle Blevins RN Outcome: Progressing Flowsheets (Taken 04/28/2024 1037) Promote/optimize nutrition: Assist with feeding Offer water/supplements/favorite foods Consume > 50% meals/supplements Reassess MST if anesthesia assistant not consulted Goal: Promote skin healing 04/28/2024 1037 by Gabrielle Blevins RN Outcome: Progressing 04/28/2024 1037 by Gabrielle Blevins RN Outcome: Progressing Problem: Pain Goal: Takes deep breaths with improved pain control throughout the shift Outcome: Met Goal: Turns in bed with improved pain control throughout the shift Outcome: Met Goal: Walks with improved pain control throughout the shift Outcome: Met Goal: Performs ADL's with improved pain control throughout shift Outcome: Met Goal: Participates in PT with improved pain control throughout the shift Outcome: Met Goal: Free from opioid side effects throughout the shift Outcome: Met Goal: Free from acute confusion related to pain meds throughout the shift Outcome: Met Problem: Skin Goal: Participates in plan/prevention/treatment measures Recent Flowsheet Documentation Taken 04/28/2024 0145 by Earl Mistry RN Participates in plan/prevention/treatment measures: Elevate heels Problem: Fall/Injury Goal: Not fall by end of shift Outcome: Met Goal: Be free from injury by end of the shift Outcome: Met Goal: Verbalize understanding of personal risk factors for fall in the hospital Outcome: Met Goal: Verbalize understanding of risk factor reduction measures to prevent injury from fall in the home Outcome: Met Goal: Use assistive devices by end of the shift Outcome: Met Goal: Pace activities to prevent fatigue by end of the shift Outcome: Met The patient's goals for the shift include The clinical goals for the shift include Patient will remainsafe and stable throughput this shift The patient's goals for the shift include pain management The clinical goals for the shift include pain control and patient will remain HDS throughout shift Problem: Fall/Injury Goal: Not fall by end of shift 04/27/2024 1200 by Gabrielle Blevins RN Outcome: Progressing 04/27/2024 1200 by Gabrielle Blevins RN Outcome: Progressing Goal: Be free from injury by end of the shift 04/27/2024 1200 by Gabrielle Blevins RN Outcome: Progressing 04/27/2024 1200 by Gabrielle Blevins RN Outcome: Progressing Goal: Verbalize understanding of personal risk factors for fall in the hospital 04/27/2024 1200 by Gabrielle Blevins RN Outcome: Progressing 04/27/2024 1200 by Gabrielle Blevins RN Outcome: Progressing Goal: Verbalize understanding of risk factor reduction measures to prevent injury from fall in the home 04/27/20241199 by Gabrielle Blevins RN Outcome: Progressing 04/27/20241199 by Gabrielle Blevins RN Outcome: Progressing Goal: Use assistive devices by end of the shift 04/27/2024 1200 by Gabrielle Blevins RN Outcome: Progressing 04/27/20241199 by Gabrielle Blevins RN Outcome: Progressing Goal: Pace activities to prevent fatigue by end of the shift 04/27/2024 1200 by Gabrielle Blevins RN Outcome: Progressing 04/27/20241199 by Gabrielle Blevins RN Outcome: Progressing Problem: Pain Goal: Takes deep breaths with improved pain control throughout the shift 04/27/20241199 by Gabrielle Blevins RN Outcome: Progressing 04/27/20241199 by Gabrielle Blevins RN Outcome: Progressing Goal: Turns in bed with improved pain control throughout the shift 04/27/20241199 by Gabrielle Blevins RN Outcome: Progressing 04/27/20241199 by Gabrielle Blevins RN Outcome: Progressing Goal: Walks with improved pain control throughout the shift 04/27/20241199 by Gabrielle Blevins RN Outcome: Progressing 04/27/20241199 by Gabrielle Blevins RN Outcome: Progressing Goal: Performs ADL's with improved pain control throughout shift 04/27/20241199 by Gabrielle Blevins RN Outcome: Progressing 04/27/20241199 by Gabrielle Blevins RN Outcome: Progressing Goal: Participates in PT with improved pain control throughout the shift 04/27/20241199 by Gabrielle Blevins RN Outcome: Progressing 04/27/20241199 by Gabrielle Blevins RN Outcome: Progressing Goal: Free from opioid side effects throughout the shift 04/27/20241199 by Gabrielle Blevins RN Outcome: Progressing 04/27/20241199 by Gabrielle Blevins RN Outcome: Progressing Goal: Free from acute confusion related to pain meds throughout the shift 04/27/2024 1200 by Gabrielle Blevins RN Outcome: Progressing 04/27/20241199 by Gabrielle Blevins RN Outcome: Progressing Problem: Skin Goal: Decreased wound size/increased tissue granulation at next dressing change 04/27/20241199 by Gabrielle Blevins RN Outcome: Progressing 04/27/2024 1200 by Gabrielle Blevins RN Outcome: Progressing Flowsheets (Taken 04/27/2024 1200) Decreased wound size/increased tissue granulation at next dressing change: Promote sleep for wound healing Utilize specialty bed per algorithm Goal: Participates in plan/prevention/treatment measures 04/27/2024 1200 by Gabrielle Blevins RN Outcome: Progressing 04/27/2024 1200 by Gabrielle Blevins RN Outcome: Progressing Flowsheets (Taken 04/27/2024 1200) Participates in plan/prevention/treatment measures: Discuss with provider PT/OT consult Increase activity/out of bed for meals Elevate heels Goal: Prevent/manage excess moisture 04/27/20241199 by Gabrielle Blevins RN Outcome: Progressing 04/27/20241199 by Gabrielle Blevins RN Outcome: Progressing Goal: Prevent/minimize sheer/friction injuries 04/27/2024 1200 by Gabrielle Blevins RN Outcome: Progressing 04/27/2024 1200 by Gabrielle Blevins RN Outcome: Progressing Flowsheets (Taken 04/27/20241199) Prevent/minimize sheer/friction injuries: Turn/reposition every 2 hours/use positioning/transfer devices Complete micro-shifts as needed if patient unable. Adjust patient position to relieve pressure points, not a full turn Use pull sheet Goal: Promote/optimize nutrition 04/27/20241199 by Gabrielle Blevins RN Outcome: Progressing 04/27/2024 1200 by Gabrielle Blevins RN Outcome: Progressing Goal: Promote skin healing 04/27/2024 1200 by Gabrielle Blevins RN Outcome: Progressing 04/27/20241199 by Gabrielle Blevins RN Outcome: Progressing Problem: Fall/Injury Goal: Not fall by end of shift Outcome: Progressing Goal: Be free from injury by end of the shift Outcome: Progressing Goal: Verbalize understanding of personal risk factors for fall in the hospital Outcome: Progressing Goal: Verbalize understanding of risk factor reduction measures to prevent injury from fall in the home Outcome: Progressing Goal: Use assistive devices by end of the shift Outcome: Progressing Goal: Pace activities to prevent fatigue by end of the shift Outcome: Progressing Problem: Pain Goal: Takes deep breaths with improved pain control throughout the shift Outcome: Progressing Goal: Turns in bed with improved pain control throughout the shift Outcome: Progressing Goal: Walks with improved pain control throughout the shift Outcome: Progressing Goal: Performs ADL's with improved pain control throughout shift Outcome: Progressing Goal: Participates in PT with improved pain control throughout the shift Outcome: Progressing Goal: Free from opioid side effects throughout the shift Outcome: Progressing Goal: Free from acute confusion related to pain meds throughout the shift Outcome: Progressing Problem: Skin Goal: Decreased wound size/increased tissue granulation at next dressing change Outcome: Progressing Goal: Participates in plan/prevention/treatment measures Outcome: Progressing Goal: Prevent/manage excess moisture Outcome: Progressing Goal: Prevent/minimize sheer/friction injuries Outcome: Progressing Goal: Promote/optimize nutrition Outcome: Progressing Goal: Promote skin healing Outcome: Progressing The patient's goals for the shift include The clinical goals for the shift include Pain will be controlled this shift Over the shift, the patient did not make progress toward the following goals. Barriers to progression include pain Recommendations to address these barriers include follow poc. Pigtail catheter removal AM CXR reviewed. Radiology report of small pneumothorax; felt to be secondary to incomplete lung re-expansion after pleural effusion drainage. No large volume effusion remaining No air leak when examined this AM. Pigtail catheter removed during exhalation at bedside. Occlusive dressing applied. - will get CXR in 4 hours STEPHANIE DIEZ Problem: Pain Goal: Takes deep breaths with improved pain control throughout the shift Outcome: Progressing Goal: Turns in bed with improved pain control throughout the shift Outcome: Progressing Goal: Walks with improved pain control throughout the shift Outcome: Progressing Goal: Performs ADL's with improved pain control throughout shift Outcome: Progressing Goal: Participates in PT with improved pain control throughout the shift Outcome: Progressing Goal: Free from opioid side effects throughout the shift Outcome: Progressing Goal: Free from acute confusion related to pain meds throughout the shift Outcome: Progressing Problem: Skin Goal: Decreased wound size/increased tissue granulation at next dressing change Outcome: Progressing Goal: Participates in plan/prevention/treatment measures Outcome: Progressing Goal: Prevent/manage excess moisture Outcome: Progressing Goal: Prevent/minimize sheer/friction injuries Outcome: Progressing Flowsheets (Taken 04/26/2024 5919) Prevent/minimize sheer/friction injuries: HOB 30 degrees or less Turn/reposition every 2 hours/use positioning/transfer devices Use pull sheet Goal: Promote/optimize nutrition Outcome: Progressing Goal: Promote skin healing Outcome: Progressing Problem: Fall/Injury Goal: Not fall by end of shift Outcome: Progressing Goal: Be free from injury by end of the shift Outcome: Progressing Goal: Verbalize understanding of personal risk factors for fall in the hospital Outcome: Progressing Goal: Verbalize understanding of risk factor reduction measures to prevent injury from fall in the home Outcome: Progressing Goal: Use assistive devices by end of the shift Outcome: Progressing Goal: Pace activities to prevent fatigue by end of the shift Outcome: Progressing The patient's goals for the shift include The clinical goals for the shift include Pain will be controlled this shift Over the shift, the patient did not make progress toward the following goals. Barriers to progression include constant pain. Recommendations to address these barriers include administer pain. The patient's goals for the shift include pain management The clinical goals for the shift include pain management Problem: Fall/Injury Goal: Not fall by end of shift Outcome: Progressing Goal: Be free from injury by end of the shift Outcome: Progressing Goal: Verbalize understanding of personal risk factors for fall in the hospital Outcome: Progressing Goal: Verbalize understanding of risk factor reduction measures to prevent injury from fall in the home Outcome: Progressing Goal: Use assistive devices by end of the shift Outcome: Progressing Goal: Pace activities to prevent fatigue by end of the shift Outcome: Progressing Problem: Pain Goal: Takes deep breaths with improved pain control throughout the shift Outcome: Progressing Goal: Turns in bed with improved pain control throughout the shift Outcome: Progressing Goal: Walks with improved pain control throughout the shift Outcome: Progressing Goal: Performs ADL's with improved pain control throughout shift Outcome: Progressing Goal: Participates in PT with improved pain control throughout the shift Outcome: Progressing Goal: Free from opioid side effects throughout the shift Outcome: Progressing Goal: Free from acute confusion related to pain meds throughout the shift Outcome: Progressing The patient's goals for the shift include The clinical goals for the shift include pain management Over the shift, the patient did not make progress toward the following goals. Barriers to progression included pain. Recommendations to address these barriers include ask for medication follow poc The patient's goals for the shift include pain management The clinical goals for the shift include pain management The patient's goals for the shift include The clinical goals for the shift include Pt will remain safe and stable Problem: Safety - Adult Goal: Free from fall injury Outcome: Met Problem: Pain Goal: Takes deep breaths with improved pain control throughout the shift Outcome: Met Goal: Turns in bed with improved pain control throughout the shift Outcome: Met Goal: Walks with improved pain control throughout the shift Outcome: Met Goal: Performs ADL's with improved pain control throughout shift Outcome: Met Goal: Participates in PT with improved pain control throughout the shift Outcome: Met Goal: Free from opioid side effects throughout the shift Outcome: Met Goal: Free from acute confusion related to pain meds throughout the shift Outcome: Met Problem: Skin Goal: Participates in plan/prevention/treatment measures Outcome: Met Flowsheets (Taken 04/24/2024 0014) Participates in plan/prevention/treatment measures: Elevate heels The patient's goals for the shift include The clinical goals for the shift include pain management The patient's goals for the shift include pain management The clinical goals for the shift include patient's pain will be controlled throughout the shift. Problem: Pain Goal: Takes deep breaths with improved pain control throughout the shift Outcome: Progressing Goal: Turns in bed with improved pain control throughout the shift Outcome: Progressing Goal: Walks with improved pain control throughout the shift Outcome: Progressing Goal: Performs ADL's with improved pain control throughout shift Outcome: Progressing Goal: Participates in PT with improved pain control throughout the shift Outcome: Progressing Goal: Free from opioid side effects throughout the shift Outcome: Progressing Goal: Free from acute confusion related to pain meds throughout the shift Outcome: Progressing The patient's goals for the shift include safety The clinical goals for the shift include patient's pain will be controlled throughout the shift Problem: Pain Goal: Takes deep breaths with improved pain control throughout the shift Outcome: Progressing Goal: Turns in bed with improved pain control throughout the shift Outcome: Progressing Goal: Walks with improved pain control throughout the shift Outcome: Progressing Goal: Performs ADL's with improved pain control throughout shift Outcome: Progressing Goal: Participates in PT with improved pain control throughout the shift Outcome: Progressing Goal: Free from opioid side effects throughout the shift Outcome: Progressing Goal: Free from acute confusion related to pain meds throughout the shift Outcome: Progressing Patient with bowel obstruction in setting of multiple prior operations. Passed a gastrografin challenge (contrast noted to be in colon on KUB today). Patient placed on 3 hour gravity trial from 3 pm to 6 pm. Patient states he felt slightly nauseated during this 3 hour time, but denied abdominal pain. Upon inspection of the gravity cannister, nearly 200 ml of dark brown, thick fluid had already drained via gravity. When hooked back to suction an additional 100 ml was suctioned out. After just 3 hours, with 300 ml out the NGT was left in place to LIWS. STEPHAN[facility] The clinical goals for the shift include patient will remain safe from falls and injury by the end of the shift Over the shift, the patient did make progress toward the following goals. The patient's goals for the shift include pain management The clinical goals for the shift include patient's pain will be controlled throughout the shift Problem: Pain Goal: Takes deep breaths with improved pain control throughout the shift Outcome: Progressing Goal: Turns in bed with improved pain control throughout the shift Outcome: Progressing Goal: Walks with improved pain control throughout the shift Outcome: Progressing Goal: Performs ADL's with improved pain control throughout shift Outcome: Progressing Goal: Participates in PT with improved pain control throughout the shift Outcome: Progressing Goal: Free from opioid side effects throughout the shift Outcome: Progressing Goal: Free from acute confusion related to pain meds throughout the shift Outcome: Progressing The patient's goals for the shift include pain management The clinical goals for the shift include patient's pain will be controlled throughout the shift Problem: Pain Goal: Takes deep breaths with improved pain control throughout the shift Outcome: Progressing Goal: Turns in bed with improved pain control throughout the shift Outcome: Progressing Goal: Walks with improved pain control throughout the shift Outcome: Progressing Goal: Performs ADL's with improved pain control throughout shift Outcome: Progressing Goal: Participates in PT with improved pain control throughout the shift Outcome: Progressing Goal: Free from opioid side effects throughout the shift Outcome: Progressing Goal: Free from acute confusion related to pain meds throughout the shift Outcome: Progressing The patient's goals for the shift include pain management. The clinical goals for the shift include patient's pain will be controlled throughout the shift. Pre-Procedure Checklist: Emergent Line Insertion: No Type of Line to be Placed: PICC Consent Obtained: Yes Emergency Medication Necessary: No Patient Identified with 2 Independent Identifiers: Yes Review of Allergies, Anticoagulation, Relevant Labs, ECG/Telemetry: Yes Risks/Benefits/Alternatives Discussed with Patient/POA/Legal Coffee Sampler: Yes Stop Sign on Door: Yes Time Out Performed: Yes Catheter Exchange: No Positioning Checklist: All People, Including Patient, in the Room with Cap and Mask: Yes Fluoroscopy Used to Identify Vessel and Guide Insertion: No Sterile Cover Used: Yes Full Barrier Precautions Followed (Mask, Cap, Gown, Gloves): Yes Hands Washed: Yes Monitors Attached with Sound Alarms On: No Full Body Sterile Drape (Head-to-Toe) Used to Cover Patient: Yes Trendelenburg Position (For IJ and Subclavian): No CHG Skin Prep Used and Allowed to Air Dry to Skin Procedure: Yes Procedure Checklist: Blood Aspirated From All Lumens, All Ports Subsequently Flushed: Yes Catheter Caps Placed on All Lumens; Lumens Clamped: Yes Maintain Guidewire Control Throughout, Ensuring Guidewire Removal: Yes Maintain Sterile Field Throughout Insertion: Yes Catheter Secured: Yes Confirmatory Test of Venous Placement: Non-Pulsatile Blood Post Procedure Checklist: Date and Time Written on Dressing: Yes Sharp and Wire Count and Safe Disposal of all Sharps/Wires: Yes Sterile Dressing Applied Per Protocol: Yes X-ray Ordered or ECG Image: Yes PICC Insertion Details: Size (Fr): 4 Lumen Type:single Catheter to Vein Ratio Less Than 50%: Yes Total Length (cm): 45 External Length (cm): 0 Orientation: left Location: Basilic Site Prep: Chlorohexidine; Usual sterile procedure followed Local Anesthetic: Injectable/Subcutaneous Indication: TPN Insertion Team Members in the Room: NurseDEWAYNE Initial Extremity Circumference (cm): 23 Insertion Attempts: 1 Patient Tolerance: Tolerated Well, Age Appropriate Comfort Measures: Subcutaneous anesthetic; Verbal Procedure Location: Bedside Safety Measures: Patient specific safety measures addressed with RN Estimated Blood Loss (mL): 0 Vessel Fully Compressible Proximally and Distally to Insertion Site: Yes Brisk Blood Return Obtained and Line Draws Easily: Yes Tip Location:svc Line Confirmation: ECG Lot #:[id number] Ticket Seller: [employer] PICC Line Exp Date: 06/22/2025 Securement: Stat Lock Post Procedure Checklist: Handoff with RN; Obtain all new IV tubing prior to use; Bed at lowest level and wheels locked; Line discharge information at bedside. Additional Details: Line was inserted using Modified Seldinger's Technique. Placed by: Sharlene Altamirano documented in this encounter [facility] Work Phone: 05-10-2024 Hospital course Narrative Discharge Diagnosis SBO (small bowel obstruction) (Multi) Issues Requiring Follow-Up Post op, staple removal -ACS clinic Test Results Pending At Discharge Pending Labs Order Current Status Magnesium Collected (05/10/24902) Renal Function Panel Collected (05/10/24902) Hospital Course Mr. uGerrier is a 74 yo M with pmh of RA, COPD, prostate ca, baldder ca,\CAD, PAD, BPH, HTN, GERD, Colon ca, AAA, ileal condiut, cystectomy, prostatectomy, s/p peripheral artey angioplasty, s/p colectomy that presented with SBO. Patient was taken to the OR on 04/30 for ex-lap and EDIS. He tolerated the procedure well. He was intermediately placed on TPN while transitioning to a diet. At the time of discharge, patient's pain was controlled with oral analgesia, patient was urinating, having BMs, sleeping, and eating well. Based on PT/OT's recommendation, patient was discharged home with scripts and follow up appointments. Discharge plan was discussed with the patient and all of the patient's questions were answered. Patient declined SNF and will go home with outpatient PT. [facility] set up PT in [place] for patient. Pertinent Physical Exam At Time of Discharge Physical Exam Constitutional: Appearance: Normal appearance. Eyes: Extraocular Movements: Extraocular movements intact. Cardiovascular: Comments: Non cyanotic Pulmonary: Comments: Non labored, good chest expansion Abdominal: Comments: Appropriately tender abdomen, nondistended, soft. Midline incision closed with edd. CDI. Genitourinary: Comments: Ileal conduit in place- stoma pink and functioning yellow urine Musculoskeletal: General: Normal range of motion. Skin: General: Skin is warm and dry. Neurological: Mental Status: He is alert and oriented to person, place, and time. Psychiatric: Behavior: Behavior normal. Home Medications Medication List START taking these medications acetaminophen 325 mg tablet; Commonly known as: Tylenol; Take 2 tablets (650 mg) by mouth every 6 hours if needed for mild pain (1 - 3). oxyCODONE 5 mg immediate release tablet; Commonly known as: Roxicodone; Take 1 tablet (5 mg) by mouth every 6 hours if needed for severe pain (7 - 10) for up to 5 days. sennosides-docusate sodium 8.6-50 mg tablet; Commonly known as: Kiersten-Colace; Take 1 tablet by mouth once daily for 10 days. CONTINUE taking these medications albuterol 90 mcg/actuation inhaler amLODIPine 10 mg tablet; Commonly known as: Norvasc atorvastatin 20 mg tablet; Commonly known as: Lipitor clopidogrel 75 mg tablet; Commonly known as: Plavix docusate sodium 100 mg capsule; Commonly known as: Colace gabapentin 300 mg capsule; Commonly known as: Neurontin lisinopril 20 mg tablet STOP taking these medications acetaminophen-codeine 300-60 mg tablet; Commonly known as: Tylenol w/ Codeine #4 ibuprofen 800 mg tablet ondansetron ODT 4 mg disintegrating tablet; Commonly known as: Zofran-ODT predniSONE 10 mg tablet; Commonly known as: Deltasone Outpatient Follow-Up TBD ACS clinic [place] PA-C documented in this encounter [facility] Work Phone: 04-30-2024 History and physical note Patient has been admitted for approximately 2 weeks with ongoing obstructive symptoms. Still with very high NG output. Unable to remove NGT. Has had some contrast pass into colon, but still has obstructive symptoms. Plan for laparotomy. Detailed risks, benefits, alternatives discussed with patient and family. All in agreement to proceed with [facility] Source Note - Maria Fernanda Mina MD - 04/19/2024 3:26 AM EDT [facility] ACUTE CARE SURGERY - HISTORY AND PHYSICAL Patient Name: Lela Guerrier Admit Date: [id number] : 1950 AGE: 74 y.o. GENDER: male == TODAY'S ASSESSMENT AND PLAN OF CARE: ASSESSMENT: Lela Guerrier is a 74 y.o. male with pmx of RA, COPD, prostate ca, bladder ca, CAD, PAD, BPH, HTN, GERD, colon ca, AAA, PAD, ileal conduit, cystectomy, prostatectomy, s/p peripheral artery angioplasty, s/p colectomy presented to OSH with abdominal pain nausea, emesis. CT scan demonstrated SBO. Patient transferred to [facility] for further evalation. Admit to ACS NPO/D5LR Hold plavix, start KAYLA KUB to confirm OSH NGT placement IV tylenol/IV dilaudid Admission labs Med rec requested (pending) Subjective == CHIEF COMPLAINT/REASON FOR CONSULT: Chief Complaint: AP/SBO HPI: Lela Guerrier is a 74 y.o. male with pmx of RA, COPD, prostate ca, bladder ca, CAD, PAD, BPH, HTN, GERD, colon ca, AAA, PAD, ileal conduit, cystectomy, prostatectomy, s/p peripheral artery angioplasty, s/p colectomy presented to OSH with abdominal pain, nausea, emesis. CT scan demonstrated SBO. Symptoms began Saturday 04/14 in which presented OSH 04/[address] scan demonstrating some fluid filled, mildly distended small bowel loops but no bowel obstruction. Patient returned 04/17 to have SBO on scan, most likely due to adhesions from previous surgeries. NGT was placed. Patient transferred to [facility] 04/19 for further evaluation. Patient 10 abdominal as well as nose pain due to NGT. Patient currently stable without emesis.Last took plavix 04/16. Abdominal mildly distended. Patient noted to started to pass gas and a little BM prior to departure to [facility]. Objective PAST MEDICAL HISTORY: PMH:Colostomy, cancer, etoh use, RA, anemia, HLD, back pain, neck/head injury, smoker, COPD, neuropathy, prostate ca, bladder ca, CAD, PAD, BPH, HTN, colon cancer, GERD, AAA, PAD PSH: Hx of Ileo conduit Total cystectomy Radical prostatectomy Arteriogram of extremity Peripheral artery angioplasty Colectomy FH: No family history on file. SOCIAL HISTORY: Smokin/2 pack day Alcohol: 1x a month Social History Substance and Sexual Activity Alcohol Use Not on file Drug use: no MEDICATIONS: (pending med rec) Acetaminophen 300mg codiene 60mg Gabapentin 300 Atorvastatin 20 Ibuprofen 800 Amlodipine 10 Lisinopril 10 Albuterol sulfate 90mcg/acuation aerosal inhaler Clopidigrel 75 Docusate sodium 100 Zofran tablet 4mg ALLERGIES: Bactrim REVIEW OF SYSTEMS: A 12-point ROS was performed and was unremarkable except as above. Vitals: 04/19/24 0235 BP: 144/67 Pulse: 98 Resp: 18 SpO2: 98% PHYSICAL EXAM: GEN: No acute distress. Alert, awake and conversive. HEENT: Sclera anicteric. Moist mucous membranes. NGT in place RESP: Breathing non-labored, equal chest rise. On RA. CV: Regular rate, normotensive GI: Abdomen soft, mildly distended, tender to palpation Ileoconduit RLQ : Ileoconduit MSK: No gross deformities. Moves all extremities spontaneously. NEURO: Alert and oriented x3. No focal deficits. PSYCH: Appropriate mood and affect. SKIN: No rashes or lesions. 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 LABS: No results found for this or any previous visit (from the past 24 hour(s)). I/O past 24h: No intake/output data recorded. I have reviewed all laboratory and imaging results ordered/pertinent for this encounter. Patient's exam, labs, and findings seen with Dr. Chester and discussed with Dr. Gonzalez, who agrees with the plan as described above. Maria Fernanda Mina MD PGY-1 General Surgery Acute Care Surgery [id number] [facility] ACUTE CARE SURGERY - HISTORY AND PHYSICAL Patient Name: Lela Guerrier Admit Date: [id number] : 1950 AGE: 74 y.o. GENDER: male == TODAY'S ASSESSMENT AND PLAN OF CARE: ASSESSMENT: Lela Guerrier is a 74 y.o. male with pmx of RA, COPD, prostate ca, bladder ca, CAD, PAD, BPH, HTN, GERD, colon ca, AAA, PAD, ileal conduit, cystectomy, prostatectomy, s/p peripheral artery angioplasty, s/p colectomy presented to OSH with abdominal pain nausea, emesis. CT scan demonstrated SBO. Patient transferred to [facility] for further evalation. Admit to ACS NPO/D5LR Hold plavix, start KAYLA KUB to confirm OSH NGT placement IV tylenol/IV dilaudid Admission labs Med rec requested (pending) Subjective == CHIEF COMPLAINT/REASON FOR CONSULT: Chief Complaint: AP/SBO HPI: Lela Guerrier is a 74 y.o. male with pmx of RA, COPD, prostate ca, bladder ca, CAD, PAD, BPH, HTN, GERD, colon ca, AAA, PAD, ileal conduit, cystectomy, prostatectomy, s/p peripheral artery angioplasty, s/p colectomy presented to OSH with abdominal pain, nausea, emesis. CT scan demonstrated SBO. Symptoms began Saturday 04/14 in which presented OSH 04/[address] scan demonstrating some fluid filled, mildly distended small bowel loops but no bowel obstruction. Patient returned 04/17 to have SBO on scan, most likely due to adhesions from previous surgeries. NGT was placed. Patient transferred to [facility] 04/19 for further evaluation. Patient 05/01 abdominal as well as nose pain due to NGT. Patient currently stable without emesis.Last took plavix 04/16. Abdominal mildly distended. Patient noted to started to pass gas and a little BM prior to departure to [facility]. Objective PAST MEDICAL HISTORY: PMH:Colostomy, cancer, etoh use, RA, anemia, HLD, back pain, neck/head injury, smoker, COPD, neuropathy, prostate ca, bladder ca, CAD, PAD, BPH, HTN, colon cancer, GERD, AAA, PAD PSH: Hx of Ileo conduit Total cystectomy Radical prostatectomy Arteriogram of extremity Peripheral artery angioplasty Colectomy FH: No family history on file. SOCIAL HISTORY: Smokin/2 pack day Alcohol: 1x a month Social History Substance and Sexual Activity Alcohol Use Not on file Drug use: no MEDICATIONS: (pending med rec) Acetaminophen 300mg codiene 60mg Gabapentin 300 Atorvastatin 20 Ibuprofen 800 Amlodipine 10 Lisinopril 10 Albuterol sulfate 90mcg/acuation aerosal inhaler Clopidigrel 75 Docusate sodium 100 Zofran tablet 4mg ALLERGIES: Bactrim REVIEW OF SYSTEMS: A 12-point ROS was performed and was unremarkable except as above. Vitals: 04/19/24 0235 BP: 144/67 Pulse: 98 Resp: 18 SpO2: 98% PHYSICAL EXAM: GEN: No acute distress. Alert, awake and conversive. HEENT: Sclera anicteric. Moist mucous membranes. NGT in place RESP: Breathing non-labored, equal chest rise. On RA. CV: Regular rate, normotensive GI: Abdomen soft, mildly distended, tender to palpation Ileoconduit RLQ : Ileoconduit MSK: No gross deformities. Moves all extremities spontaneously. NEURO: Alert and oriented x3. No focal deficits. PSYCH: Appropriate mood and affect. SKIN: No rashes or lesions. 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 LABS: No results found for this or any previous visit (from the past 24 hour(s)). I/O past 24h: No intake/output data recorded. I have reviewed all laboratory and imaging results ordered/pertinent for this encounter. Patient's exam, labs, and findings seen with Dr. Chester and discussed with Dr. Gonzalez, who agrees with the plan as described above. Maria Fernanda Mina MD PGY-1 General Surgery Acute Care Surgery [id number] Associated attestation - Tommie Gonzalez DO - 04/19/2024 8:52 AM EDT I reviewed the resident/fellow's documentation and discussed the patient with the resident/fellow. I agree with the resident/fellow's medical decision making as documented in the note. Tommie Gonzalez DO documented in this encounter [facility] Work Phone: 04-19-2024 Consult note Associated Order (s): IP CONSULT TO NUTRITION SERVICES Nutrition Initial Assessment: Nutrition Assessment Reason for Assessment: TPN recommendations Patient is a 74 y.o. male presenting with PMHx of RA, COPD, prostate ca, bladder ca, CAD, PAD, BPH, HTN, GERD, colon ca, AAA, PAD, ileal conduit, cystectomy, prostatectomy, s/p peripheral artery angioplasty, s/p colectomy presented to OSH with abdominal pain nausea, emesis. CT scan demonstrated SBO. Patient transferred to [facility] for further evalation. Currently with NGT in to decompression-- large amount of output noted in canister in room. Noted orders for PICC placement. Nutrition History: Energy Intake: Fair 50-75 % Food and Nutrient History: RDN met with pt, spouse, and pt's son. Reports that up until 04/15 oral intake had been fair. Over the last month pt started having 1 Ensure per day. Reports UBW of ~ 64 kg up until ~6 months ago. Food Allergies/Intolerances: None GI Symptoms: Nausea, Vomiting, and Abdominal pain Oral Problems: None Anthropometrics: Height: 170.2 cm (5' 7) Weight: 56.9 kg (125 lb 7.1 oz) BMI (Calculated): 19.64 IBW/kg (Dietitian Calculated): 67.3 kg Weight History: UBW ~64 kg 6 months ago Weight Change %: 11.1% x6 months Nutrition Focused Physical Exam Findings: Subcutaneous Fat Loss: Orbital Fat Pads: Mild-Moderate (slight dark circles and slight hollowing) Buccal Fat Pads: Mild-Moderate (flat cheeks, minimal bounce) Triceps: Mild-Moderate (less than ample fat tissue) Muscle Wasting: Temporalis: Mild-Moderate (slight depression) Pectoralis (Clavicular Region): Mild-Moderate (some protrusion of clavicle) Deltoid/Trapezius: Mild-Moderate (slight protrusion of acromion process) Edema: Edema: none Physical Findings: Significant abdominal distension noted Nutrition Significant Labs: BG POCT trend: , Renal Lab Trend: Results from last 7 days Lab Units 04/19/24 0908 POTASSIUM mmol/L 3.7 SODIUM mmol/L 144 MAGNESIUM mg/dL 1.88 EGFR mL/min/1.73m*2 53* BUN mg/dL 26* CREATININE mg/dL 1.40* Nutrition Specific Medications: Continuous medications dextrose 5 % and lactated Ringer's, 100 mL/hr, Last Rate: 100 mL/hr (04/19/24 1019) Dietary Orders (From admission, onward) Start Ordered 04/19/24 0255 NPO Diet; Effective now Diet effective now 04/19/24 0300 Estimated Needs: Total Energy Estimated Needs (kCal): ([id number]) Method for Estimating Needs: 30-35 kcal/kg actual wt Total Protein Estimated Needs (g): 85 g Method for Estimating Needs: 1.5 g/kg actual wt Fluid needs per team Nutrition Diagnosis Malnutrition Diagnosis Patient has Malnutrition Diagnosis: Yes Diagnosis Status: New Malnutrition Diagnosis: Moderate malnutrition related to acute disease or injury As Evidenced by: mild muscle loss and subcutaneous fat loss, oral intake <75% estimated needs over the last 5 days or so. Additional Assessment Information: Pt likely with slim build at baseline-- son in room and able to confirm that pt and him are of similar stature. Nutrition Interventions/Recommendations Nutrition Prescription: Individualized Nutrition Prescription Provided for : parenteral nutrition support @ goal + lipids = 1778 kcal, 90 g protein, 2050 ml total volume Nutrition Interventions: Interventions: Parenteral nutrition/ IV fluids Formula: TPN standard - AA 5%, dextrose 15%-- start at 40 ml/hr on day 1 and if pt with no shifts in lytes and blood glucose <180 mg/dl please increase to 75 ml/hr on day 2. Elements: Multivitamin, Trace elements If PICC unable to be placed can alternatively start standard PPN @ 75 ml/hr until able to start TPN Fat Emulsion 20%: SMOF lipid Fat Emulsion Rate (mL/hr): 20 mL/hr x12 hr Fat Emulsion Volume (mL/day): 250 mL/day over 12 hr TPN monitoring: Blood Glucose Frequency: Every 6 hours Weight Frequency: Daily Labs: Renal panel and magnesium daily, Repeat electrolytes as needed, Triglycerides: now and each week, LFTs: now and each week Collaboration and Referral of Nutrition Care: Collaboration by nutrition professional with other providers Nutrition Education: Reviewed at length importance of not consuming liquid from mouth swabs with pt and family as pt was requesting something to wet his mouth with. Nutrition Monitoring and Evaluation Food/Nutrient Related History Monitoring Monitoring and Evaluation Plan: Enteral and parenteral nutrition intake Enteral and Parenteral Nutrition Intake: Parenteral nutrition formula/solution Criteria: pt will receive >/= 80% prescribed parenteral nutrition support Biochemical Data, Medical Tests and Procedures Monitoring and Evaluation Plan: Electrolyte/renal panel, Glucose/endocrine profile Criteria: lytes WNL Criteria: POC glucose <180 mg/dl Time Spent (min): 60 minutes documented in this encounter [facility] Work Phone: 04-05-2024 History of Present illness Narrative RADIOLOGY SERVICE PROGRESS NOTE SERVICE DATE: 04/05/2024 SERVICE TIME: 09:30 AM PATIENT IDENTITY VERIFICATION COMPLETED USING TWO (2) STANDARD IDENTIFIERS: Name and Date of confirmed by patient verbally FALL SCREENING: Has the patient had 2 falls in the last year or 1 fall with injury or currently using an Ambulatory Assistive Device (Walker, Cane, Wheelchair, Crutches, etc.)? No PATIENT GENDER DATA: .male ALLERGIES: Reviewed and unchanged MEDICATIONS REVIEWED: No PATIENT RELEVANT IMPLANT DATA REVIEWED: Not Applicable PATIENT PRESENTS WITH AN IMPLANTABLE OR ATTACHED ASSEMBLER DC FIELD RING: No CREATININE: Creatinine Date Value Ref Range Status 02/29/2024 1.53 (H) 0.73 - 1.22 mg/dL Final 01/02/2024 1.71 (H) 0.73 - 1.22 mg/dL Final 10/20/2023 1.76 (H) 0.73 - 1.22 mg/dL Final Estimated Glomerular Filtration Rate Date Value Ref Range Status 02/29/2024 48 (L) >=60 mL/min/1.73m Final Comment: Estimated Glomerular Filtration Rate (eGFR) is calculated using the 2020 CKD-EPI creatinine equation. This equation utilizes serum creatinine, sex, and age as parameters. The creatinine assay has traceable calibration to isotope dilution-mass spectrometry. Refer to KDIGO guidelines for clinical interpretation. In patients with unstable renal function, e.g. those with acute kidney injury, the eGFR may not accurately reflect actual GFR. eGFR- Date Value Ref Range Status 03/23/2021 >60 Final P.O.C.T. RESULTS: N/A April 05, [address] PERFORMED: No IV SITE: Ambulatory: A peripheral IV was started in the Right antecubital site with a Angio cath: 20 gauge. POST EXAM PIV STATUS: Discontinued PROCEDURE TYPE: NM INJECT: Renal Flow and function with diuretic. 12 mCi Tc99m MAG-3. Lasix 40 milligrams intravenous at 10:12- given by Saima Burch RN. ADMINISTRATION TIME: 09:45 PATIENT DISCHARGED TO: Ambulatory patient, left NM department area. A Diagnostic radioactive procedure has taken place, with no further precautions necessary other than routine body substance precautions. More information regarding radiation safety can be found using this link: [email or web address] SIGNATURE: RT Torin(R) PATIENT NAME: Lela Guerrier DATE: April 05, 2024 TIME: 10:08 AM PAGER/CONTACT #: documented in this encounter [facility] 04-05-2024 Nurse Note Patient and order verified. Lasix 40mg IV given over 4min per order. IV flushed. Patient tolerated well. Saima Burch RN [facility] 04-05-2024 Nurse Note Patient and order verified. Lasix 40mg IV given over 4min per order. IV flushed. Patient tolerated well. Saima Burch RN documented in this encounter [facility] 03-20-2024 Note HNO ID: [id number] Author: ADRIÁN YARBROUGH MD Service: ? Author Type: Physician Type: Progress Notes Filed: 03/20/2024 16:01 Note Text: [facility] ESTABLISHED PATIENT NOTE PATIENT: Lela Guerrier (73 year old) PCP: Arnie Chiang MD DATE OF SERVICE: 03/20/2024 ---- ASSESSMENT: 1. Hydronephrosis of right kidney - ICD9: 591, ICD10: N13.30 (primary diagnosis) 2. History of total cystectomy - ICD9: V45.74, ICD10: Z90.6 3. History of bladder cancer - ICD9: V10.51, ICD10: Z85.51 Robot assisted laparoscopic cysto-prostatectomy, bilateral pelvic lymph node dissection, and ileal conduit (intracorporeal), Extensive lysis of adhesions (~2hrs) - Dr. Muse 08/2016 New right hydroureteronephrosis. Severe right renal atrophy PLAN: Right hydronephrosis. Asymptomatic. No infections. Discussed scan results with patient. I suspect a non-functional kidney. Check renal scan to verify. If no function and remains asymptomatic, plan surveillance ---- ORDERS TODAY: Orders Placed This Encounter NM RENAL FLOW/FXN W PHARM Standing Status: Future Standing Expiration Date: 04/19/2025 FOLLOW UP: No follow-ups on file. ---- CHIEF COMPLAINT: Patient presents with: Hydronephrosis, unspecified hydronephrosis type: HISTORY OF PRESENT ILLNESS: Prior notes were reviewed. Mr. Guerrier is a 73 year old male who is here for follow up. The patient reports he feels well. No pain. No hematuria. REVIEW OF SYSTEMS: Genitourinary: No hematuria Constitutional: unintentional weight loss - denies, fevers - denies Cardiovascular: new or worsening chest pain - denies Respiratory: new or worsening shortness of breath - denies Gastrointestinal: constipation - denies, vomiting - denies Hematologic/Lymphatic: easy bleeding or bruising - denies ALLERGIES: ALLERGIES Allergen Reactions Bactrim [Sulfametho* Other: See Comments pt. states caused severe bladder spasms MEDICATIONS: albuterol HFA (VENTOLIN HFA) 90 mcg/actuation inhaler Inhale 2 Puffs as instructed every 4 hours as needed for wheezing/shortness of breath. acetaminophen-codeine (TYLENOL-COD #4) 300-60 mg per tablet [...] times a day as needed for pain. gabapentin (NEURONTIN) 300 mg capsule Take 2 capsules by mouth three times daily for 360 days. ondansetron (ZOFRAN) 8 mg tablet Take 1 tablet by mouth every 8 hours as needed for nausea/vomiting. clopidogrel (PLAVIX) 75 mg tablet Take 1 tablet by mouth once daily. Post stents. lisinopril (ZESTRIL) 20 mg tablet Take 1 tablet by mouth once daily. (Patient not taking: Reported on 03/20/2024) diphenhydrAMINE-Acetaminophen 25-500 mg tab Take 2 tablets by mouth at bedtime as needed. (Patient not taking: Reported on 03/20/2024) PAST HISTORY: PAST MEDICAL HISTORY Diagnosis Date AAA (abdominal aortic aneurysm) (HCC) 05/06/2013 Bladder cancer (HCC) 08/29/2016 Bladder tumor BPH without urinary obstruction 08/04/2015 Cervicalgia 11/03/2008 CHRONIC AIRWAY OBSTRUCTION NEC 01/12/2009 Colon cancer (HCC) 07/19/2013 s/p laparoscopic with conversion to open low anterior resection of the colon with abscess and appendectomy and completed chemo 2013 Hydronephrosis 2023 HYPERTENSION NOS 12/01/2008 Hypertrophy of prostate without [...] COLONOSCOPY 07/04/2017 recheck in 3 years, Dr. Tyson COLONOSCOPY FLX DX W/COLLJ SPEC WHEN PFRMD 07/12/2013 Colonoscopy COLONOSCOPY FLX DX W/COLLJ SPEC WHEN PFRMD 07/11/2014 repeat in (more content not included)... [facility] 03-20-2024 History of Present illness Narrative Images from the original note were not included. [facility] ESTABLISHED PATIENT NOTE PATIENT: Lela Guerrier (73 year old) PCP: Arnie Chiang MD DATE OF SERVICE: 03/20/2024 ---- ASSESSMENT: 1. Hydronephrosis of right kidney - ICD9: 591, ICD10: N13.30 (primary diagnosis) 2. History of total cystectomy - ICD9: V45.74, ICD10: Z90.6 3. History of bladder cancer - ICD9: V10.51, ICD10: Z85.51 Robot assisted laparoscopic cysto-prostatectomy, bilateral pelvic lymph node dissection, and ileal conduit (intracorporeal), Extensive lysis of adhesions (~2hrs) - Dr. Muse 08/2016 New right hydroureteronephrosis. Severe right renal atrophy PLAN: Right hydronephrosis. Asymptomatic. No infections. Discussed scan results with patient. I suspect a non-functional kidney. Check renal scan to verify. If no function and remains asymptomatic, plan surveillance ---- ORDERS TODAY: Orders Placed This Encounter NM RENAL FLOW/FXN W PHARM Standing Status: Future Standing Expiration Date: 04/19/2025 FOLLOW UP: No follow-ups on file. ---- CHIEF COMPLAINT: Patient presents with: Hydronephrosis, unspecified hydronephrosis type: HISTORY OF PRESENT ILLNESS: Prior notes were reviewed. Mr. Guerrier is a 73 year old male who is here for follow up. The patient reports he feels well. No pain. No hematuria. REVIEW OF SYSTEMS: Genitourinary: No hematuria Constitutional: unintentional weight loss - denies, fevers - denies Cardiovascular: new or worsening chest pain - denies Respiratory: new or worsening shortness of breath - denies Gastrointestinal: constipation - denies, vomiting - denies Hematologic/Lymphatic: easy bleeding or bruising - denies ALLERGIES: ALLERGIES Allergen Reactions Bactrim [Sulfametho* Other: See Comments pt. states caused severe bladder spasms MEDICATIONS: albuterol HFA (VENTOLIN HFA) 90 mcg/actuation inhaler Inhale 2 Puffs as instructed every 4 hours as needed for wheezing/shortness of breath. acetaminophen-codeine (TYLENOL-COD #4) 300-60 mg per tablet [...] times a day as needed for pain. gabapentin (NEURONTIN) 300 mg capsule Take 2 capsules by mouth three times daily for 360 days. ondansetron (ZOFRAN) 8 mg tablet Take 1 tablet by mouth every 8 hours as needed for nausea/vomiting. clopidogrel (PLAVIX) 75 mg tablet Take 1 tablet by mouth once daily. Post stents. lisinopril (ZESTRIL) 20 mg tablet Take 1 tablet by mouth once daily. (Patient not taking: Reported on 03/20/2024) diphenhydrAMINE-Acetaminophen 25-500 mg tab Take 2 tablets by mouth at bedtime as needed. (Patient not taking: Reported on 03/20/2024) PAST HISTORY: PAST MEDICAL HISTORY Diagnosis Date AAA (abdominal aortic aneurysm) (HCC) 05/06/2013 Bladder cancer (HCC) 08/29/2016 Bladder tumor BPH without urinary obstruction 08/04/2015 Cervicalgia 11/03/2008 CHRONIC AIRWAY OBSTRUCTION NEC 01/12/2009 Colon cancer (HCC) 07/19/2013 s/p laparoscopic with conversion to open low anterior resection of the colon with abscess and appendectomy and completed chemo 2013 Hydronephrosis 2023 HYPERTENSION NOS 12/01/2008 Hypertrophy of prostate without [...] COLONOSCOPY 07/04/2017 recheck in 3 years, Dr. Tyson COLONOSCOPY FLX DX W/COLLJ SPEC WHEN PFRMD [...] DX W/WO COLLJ SPEC BR/WA SPX 07/19/2013 RADICAL PROSTATECTOMY 2015 REVASCULARIZATION ILIAC ARTERY ANGIOP 1ST VSL 09/12/2011 [facility] CTR VAD W/SUBQ PORT/SKIDWAY WORKER CTR/PRPH INSJ 09/03/2014 Removal right IJ port TRANSLUMINAL ANGIOPLASTY - ILIAC 01/15/2004 bilateral stents TRANSLUMINAL ANGIOPLASTY - ILIAC 04/14/2014 bilateral. FAMILY HISTORY Problem Relation Age of Onset Stroke Father Ischemic Heart Disease Mother Heart Maternal Grandmother Heart Brother Social History Tobacco Use Smoking status: Every Day Packs/day: 0.50 Years: 53.00 Additional pack years: 0.00 Total pack years: 26.50 Types: Cigarettes Start date: 1970 Smokeless tobacco: Never Vaping Use Vaping Use: Never used Substance Use Topics Alcohol use: Yes Comment: occasional beer Drug use: No PHYSICAL EXAMINATION: There were no vitals taken for this visit. Constitutional: In no acute distress. Well appearing. Respiratory: Normal respiratory effort without use of accessory muscles. Musculoskeletal: Normal gait and station Cardiovascular: Regular rate Gastrointestinal: Nondistended DATA: Clinic: URINALYSIS: GLUCOSE UA (POCT) Negative 09/15/2015 BILIRUBIN UA (POCT) Negative 09/15/2015 KETONE UA (POCT) Negative 09/15/2015 SPECIFIC GRAVITY UA (POCT) 1.010 09/15/2015 HEMOGLOBIN/BLOOD UA (POCT) Large 09/15/2015 PH UA (POCT) 6.5 09/15/2015 PROTEIN UA (POCT) Negative 09/15/2015 UROBILINOGEN UA (POCT) 0.2 09/15/2015 NITRITE UA (POCT) Negative 09/15/2015 LEUKOCYTES UA (POCT) Trace 09/15/2015 COLOR UA (POCT) Yellow 09/15/2015 CLARITY UA (POCT) Clear 09/15/2015 Laboratory: Creatinine Date Value Ref Range Status 02/29/2024 1.53 (H) 0.73 - 1.22 mg/dL Final 01/02/2024 1.71 (H) 0.73 - 1.22 mg/dL Final 10/20/2023 1.76 (H) 0.73 - 1.22 mg/dL Final 07/14/2023 1.58 (H) 0.73 - 1.22 mg/dL Final Cultures: No data to display Susceptibility Tests - Past 1 Year No results found for the last 365 days. CT Scan Results CT ABD/PEL WO IVCON 01/30/2024 Narrative * * *Final Report* * * DATE OF EXAM: Jan 30 2024 10:03AM [facility] 0531 - CT ABD/PEL WO IVCON / PROCEDURE REASON: Hydronephrosis, unspecified hydronephrosis type * * * * Physician Interpretation * * * * EXAMINATION: CT ABDOMEN AND PELVIS WITHOUT IV CONTRAST CLINICAL HISTORY: Hydronephrosis. Prior radical cystoprostatectomy , with ileal conduit TECHNIQUE: Non-IV contrast imaging of the abdomen and pelvis was performed using standard technique, scanning from just above the dome of the diaphragm to the symphysis pubis. Unenhanced imaging is limited for the evaluation of some intra-abdominal and pelvic pathology. MQ: [id number]_3 Contrast: IV: None : ml of CT Radiation dose: Integrated Dose-length product (DLP) for this visit = 268 mGy*cm. CT Dose Reduction Employed: Automated exposure control(AEC) and iterative recon COMPARISON: CT scans of 03/21/2017. RESULT: Abdomen / Pelvis: Liver: Unremarkable. Biliary: Cholelithiasis. Gallbladder is upper limits of normal. 3.8 cm AP diameter No biliary dilatation. Spleen: No splenomegaly. Pancreas: Unremarkable. Adrenals: No mass. Kidneys: Marked right hydronephrosis and hydroureter to the level of anastomosis with the ileal conduit. Likely stricture at this location. A lesion cannot be excluded based on these nonenhanced scans. Significant renal cortical thinning on the right. Left renal cysts. No gross obstructive uropathy on the left. No suspicious renal lesion on these unenhanced scans. Ileal conduit appears grossly intact GI Tract: No bowel dilation. Significant stool throughout the colon. Bowel suture sites appear intact and stable. Lymph Nodes: No lymphadenopathy. Mesentery/peritoneum: No ascites. Retroperitoneum: No mass. Vasculature: Infrarenal abdominal aortic aneurysm of approximately 3.6 x 3.7 cm. Previously 3.2 x 3.2 cm. Iliac artery stents are seen. Pelvis: No mass or ascites. Bones/Soft Tissues: No acute abnormality. Lower thorax: Unremarkable. Localizer images: No additional findings. Impression IMPRESSION: Severe right hydronephrosis and hydroureter to the level of the ileal conduit. Probable stricture at this level. Lesion cannot entirely be excluded on these images alone. Significant right renal cortical thinning. Left renal cysts. No suspicious mass or adenopathy in the abdomen or pelvis. Cholelithiasis. Increase in the caliber of the infrarenal abdominal aortic aneurysm. Common iliac artery stents are again seen Considerable stool throughout the colon Supervisor Dry Cleaning: JESSICA Transcribe Date/Time: Feb 02 2024 1:09P Dictated by : OSIEL ORDAZ MD This examination was interpreted and the report reviewed and electronically signed by: OSIEL ORDAZ MD on Feb 02 2024 1:35PM EST PSA: PSA (ng/mL) Date Value 08/04/2015 1.29 PSA Screening (ng/mL) Date Value 04/08/[address] 01/30/2024 IMPRESSION: Severe right hydronephrosis and hydroureter to the level of the ileal conduit. Probable stricture at this level. Lesion cannot entirely be excluded on these images alone. Significant right renal cortical thinning. Left renal cysts. No suspicious mass or adenopathy in the abdomen or pelvis. Cholelithiasis. Increase in the caliber of the infrarenal abdominal aortic aneurysm. Common iliac artery stents are again seen Considerable stool throughout the colon I have reviewed the problem list, family history, and social history documented by my ancillary staff. Adrián Yarbrough MD Staff Urologist Office documented in this encounter [facility] 03-07-2024 Telephone encounter Note Patient has been identified by name and date of : Patient phones for refill(s): Requested Prescriptions Pending Prescriptions Disp Refills albuterol HFA (VENTOLIN HFA) 90 mcg/actuation inhaler Sig: Inhale 2 Puffs as instructed every 4 hours as needed for wheezing/shortness of breath. Date of last office visit in primary care: 01/08/2024 Date of next office visit in primary care: 04/19/2024 Please advise. Thank you. Nishi Cleaning RN. [facility] 03-07-2024 Miscellaneous Notes Patient has been identified by name and date of : Patient phones for refill(s): Requested Prescriptions Pending Prescriptions Disp Refills albuterol HFA (VENTOLIN HFA) 90 mcg/actuation inhaler Sig: Inhale 2 Puffs as instructed every 4 hours as needed for wheezing/shortness of breath. Date of last office visit in primary care: 01/08/2024 Date of next office visit in primary care: 04/19/2024 Please advise. Thank you. Nishi Cleaning RN. documented in this encounter [facility] 02-28-2024 History of Present illness Narrative Images from the original note were not included. [facility] UROLOGY - VIRTUAL VISIT PROGRESS NOTE Consent for this telehealth visit obtained from the patient prior to initiation of the encounter. The patient acknowledges the limitations of telehealth and agrees to proceed. The patient understands that this visit will be documented in the medical record as any other patient encounter. 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 Patient was found to have a decline in renal function and hydronephrosis by his primary care provider. Follow-up CT abdomen pelvis shows severe right hydronephrosis and hydroureter at the level of the ileal conduit, likely secondary to a stricture. Patient states he feels perfectly normal, good urinary output, denies any unusual levels of fatigue. States that he has good sleep habits. Last serum creatinine taken January 02, 2024 was 1.71 with a GFR 42. HISTORY REVIEWED (electronic chart updated): PAST MEDICAL HISTORY Diagnosis Date AAA (abdominal [...] COLONOSCOPY 07/04/2017 recheck in 3 years, Dr. Tyson COLONOSCOPY FLX DX W/COLLJ SPEC WHEN PFRMD [...] VSL 09/12/2011 [facility] VAD W/SUBQ PORT/SKIDWAY WORKER CTR/PRPH INSJ 09/03/2014 Removal right IJ port TRANSLUMINAL ANGIOPLASTY - ILIAC 01/15/2004 bilateral stents TRANSLUMINAL ANGIOPLASTY - ILIAC 04/14/2014 bilateral. FAMILY HISTORY Problem Relation Age of Onset [...] use: No Current Outpatient Medications Medication Sig acetaminophen-codeine (TYLENOL-COD #4) 300-60 mg per tablet Take 1 tablet by mouth every 4 hours as needed (30 day supply w/ 2 refills.) for up to 90 days. predniSONE (DELTASONE) 10 mg tablet Take 1 tablet by mouth once daily as needed (joint swelling). lisinopril (ZESTRIL) 20 mg tablet Take 1 tablet by mouth once daily. atorvastatin (LIPITOR) 20 mg tablet Take 1 tablet by mouth once daily. amLODIPine (NORVASC) 10 mg tablet Take 1 tablet by mouth once daily. ibuprofen (MOTRIN) 800 mg tablet Take 1 tablet by mouth three times a day as needed for pain. gabapentin (NEURONTIN) 300 mg capsule Take 2 [...] No current facility-administered medications for this visit. ALLERGIES Allergen Reactions Bactrim [Sulfametho* Other: See Comments pt. states caused severe bladder spasms REVIEW OF SYSTEMS: Reviewed and otherwise non-contributory PHYSICAL EXAMINATION: VIDEO EXAM: (if completed, performed via video enabled technology) No exam performed ASSESSMENT/PLAN: 1. Hydronephrosis, unspecified hydronephrosis type - ICD9: 591, ICD10: N13.30 (primary diagnosis) -Likely due to stricture of the ileal conduit. Would like surgical evaluation regarding this. Will refer patient to Dr. Prieto Oro at [facility] in [place]. -Obtain up-to-date RENAL FUNCTION PANEL 2. Kidney insufficiency - ICD9: 593.9, ICD10: N28.9 -As above - RENAL FUNCTION PANEL 3. Malignant neoplasm of urinary bladder, unspecified site (HCC) - ICD9: 188.9, ICD10: C67.9 -Status post cystectomy I spent a total of 30 minutes on the date of the service which included preparing to see the patient, [id number] patient care, completing clinical documentation, counseling and educating the patient/family/caregiver, ordering medications, tests, or procedures, and communicating results to the patient/family/caregiver. It required patient-provider interaction for the medical decision making as documented above. Neville Greco MD documented in this encounter [facility] 02-13-2024 Telephone encounter Note Called back and appt booked for VV with Dr. Greco. [facility] 02-13-2024 Miscellaneous Notes Called back and appt booked for VV with Dr. Greco. Called patient back to go over results but Mailbox is full. If patient calls back we need to have him follow up with Dr. Dang either VV or OV to discuss results and next step in plan. - Will need to rule out obstruction. - Obtain CT ABD/PEL WO IVCON and WO Oral contrast -IF obstruction is present, will proceed with scheduling nephrostomy of right kidney. Please Assist when calls back and I can send My chart message. Pt called. Would like a call from clinical to go over CT results. Ph. [phone] documented in this encounter [facility] 02-12-2024 Telephone encounter Note Called patient back to go over results but Mailbox is full. If patient calls back we need to have him follow up with Dr. Dang either VV or OV to discuss results and next step in plan. - Will need to rule out obstruction. - Obtain CT ABD/PEL WO IVCON and WO Oral contrast -IF obstruction is present, will proceed with scheduling nephrostomy of right kidney. Please Assist when calls back and I can send My chart message. [facility] 02-12-2024 Telephone encounter Note Pt called. Would like a call from clinical to go over CT results. Ph. [phone] [facility] 02-05-2024 Miscellaneous Notes Deb barraza from [facility] pharmacy calling asking for a new prescription for pt's Tylenol # 4. She states that the prescription is over 14 days old. This outdates the prescription and they cannot use it. Per hx, it appears that all pt's prescriptions have been written like this. Asked to speak with pharmacist. Spoke with Eliza who states the main problem is that the prescription has a start date of 01/14, a note in the sig that says Do not start before January 15, 2024 but in the pharmacy notes, it says Patient is due for new prescription on 01/17. Because of the difference in the dates, the pharmacy needed to get clarification. Somehow that did not happen before the 14 days so the prescription cannot be used at this time. Called and spoke with pt to see when he needs this prescription. Pt states he is okay with meds now as he just got a refill on 01/01. In talking with pt, he would like to try and have the prescription sent to [facility] in [place]. He feels that might be easier for himself and for the provider's office. New script pended. Call pt only if any problem. documented in this encounter [facility] 01-30-2024 History of Present illness Narrative Radiology Service Progress Note PATIENT NAME: Lela Guerrier DATE OF SERVICE: January 30, 2024 TIME: 3:12 PM PATIENT IDENTITY VERIFICATION COMPLETED USING TWO (2) IDENTIFIERS: Name and Date of confirmed by patient verbally. FALL SCREENING: Has the patient had 2 falls in the last year or 1 fall with injury or currently using an Ambulatory Assistive Device (Walker, Cane, Wheelchair, Crutches, etc.)? No PATIENT GENDER DATA: Male PATIENT RELEVANT IMPLANT DATA REVIEWED: Yes PATIENT PRESENTS WITH AN IMPLANTABLE OR ATTACHED ASSEMBLER DC FIELD RING: No RADIOLOGY DEPARTMENT: CT; Exam(s) Completed: Abdomen/Pelvis PERIPHERAL IV DATA: Not applicable SIGNED BY: RT Samira(R) January 30, 2024 3:12 PM documented in this encounter [facility] 01-16-2024 Miscellaneous Notes Karina with [facility] called for a med list. Pt is there now for apt. Pt was identified with name and date of . Faxed to [phone] Done. Becky Cruz LPN documented in this encounter [facility] 01-12-2024 Note HNO ID: [id number] Author: NEVILLE GRECO MD Service: ? 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 Ean Muse. GUY with urology fellow Placido Velez September 20, 2016. Notes indicate that the patient had 1 of 2 stents removed but he recalls have both stents removed a the same time. Recent BMP revealed a reduction in renal function now with a GFR of 42. Initial decline in renal function appears to have started 6 months ago. Subsequently patient underwent renal/bladder ultrasound revealing moderate to severe right-sided hydronephrosis and multiple simple cysts in the left kidney. History of stable 3.3 cm infrarenal abdominal aortic aneurysm with recommendations to undergo follow-up aortic duplex ultrasound in 2 years. LABS: PSA (ng/mL) Date Value 08/04/2015 1.29 PSA Screening (ng/mL) Date Value 04/08/2019 <0.03 No results found for: ISOPSA Creatinine Date Value Ref Range Status 01/02/2024 1.71 (H) 0.73 - 1.22 mg/dL Final 10/20/2023 1.76 (H) 0.73 - 1.22 mg/dL Final 07/14/2023 1.58 (H) 0.73 - 1.22 mg/dL Final 07/04/2022 1.16 0.73 - 1.22 mg/dL Final OFFICE DATA: POST-VOID RESIDUAL BLADDER VOLUME: N/A cc URINE POC GLUCOSE UA (POCT) Negative 09/15/2015 BILIRUBIN UA (POCT) Negative 09/15/2015 KETONE UA (POCT) Negative 09/15/2015 SPECIFIC GRAVITY UA (POCT) 1.010 09/15/2015 HEMOGLOBIN/BLOOD UA (POCT) Large 09/15/2015 PH UA (POCT) 6.5 09/15/2015 PROTEIN UA (POCT) Negative 09/15/2015 UROBILINOGEN UA (POCT) 0.2 09/15/2015 NITRITE UA (POCT) Negative 09/15/2015 LEUKOCYTES UA (POCT) Trace 09/15/2015 COLOR UA (POCT) Yellow 09/15/2015 CLARITY UA (POCT) Clear 09/15/2015 IMAGING: IMPRESSION: Now present is moderate to severe right-sided hydronephrosis. Further evaluation is needed. Multiple left renal simple cysts. Supervisor Dry Cleaning: JESSICA Transcribe Date/Time: Jan 10 2024 4:43P Dictated by : TERRY SCHMIDT MD This examination was interpreted and the report reviewed and electronically signed by: TERRY SCHMIDT MD on Jan 10 2024 4:45PM EST Results-Findings * * *Final Report* * * DATE OF EXAM: Jan 10 2024 1:30PM [facility] 1055 - US KIDNEY/BLADDER / PROCEDURE REASON: Renal insufficiency * * * * Physician Interpretation * * * * EXAMINATION: RENAL ULTRASOUND CLINICAL HISTORY: Renal insufficiency. Patient has had prior cystectomy with conduit August 2016 TECHNIQUE: Sonography of the kidneys and urinary bladder was performed. Images were obtained and stored in a permanent archive. MQ: UR_1 COMPARISON: CT of 03/21/2017 RESULT: Right Kidney: -Renal length: 12.3 cm -Parenchyma: Normal parenchymal echogenicity. Normal parenchymal thickness. -Collecting system: Severe hydronephrosis. Proximal ureter measures 1.0 cm in caliber. -Calculus: No echogenic, shadowing calculus. -Lesion: None. Left Kidney: -Renal length: 10.8 cm -Parenchyma: Normal parenchymal echogenicity. Normal parenchymal thickness. -Collecting system: No hydronephrosis. -Calculus: No echogenic, shadowing calculus. -Lesion: Multiple simple cysts seen within the inferior pole measuring 2.2 x 1.9 x 2.1 cm and 1.2 x 0.8 x 1.0 cm, and within the upper to midpole measuring 0.9 x 0.6 x 1.0 cm. Bladder: Prior cystectomy. REVIEW OF SYSTEMS: Reviewed and otherwise non-contributory. HISTORY: PAST MEDICAL HISTORY Diagnosis Date AAA (abdominal [...] 06/21/2021 R exteranl iliac angioplasty/stent. L common i (more content not included)... [facility] 01-12-2024 History of Present illness Narrative Images from the original note were not included. 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 Ean Muse. GUY with urology fellow Placido Velez September 20, 2016. Notes indicate that the patient had 1 of 2 stents removed but he recalls have both stents removed a the same time. Recent BMP revealed a reduction in renal function now with a GFR of 42. Initial decline in renal function appears to have started 6 months ago. Subsequently patient underwent renal/bladder ultrasound revealing moderate to severe right-sided hydronephrosis and multiple simple cysts in the left kidney. History of stable 3.3 cm infrarenal abdominal aortic aneurysm with recommendations to undergo follow-up aortic duplex ultrasound in 2 years. LABS: PSA (ng/mL) Date Value 08/04/2015 1.29 PSA Screening (ng/mL) Date Value 04/08/2019 <0.03 No results found for: ISOPSA Creatinine Date Value Ref Range Status 01/02/2024 1.71 (H) 0.73 - 1.22 mg/dL Final 10/20/2023 1.76 (H) 0.73 - 1.22 mg/dL Final 07/14/2023 1.58 (H) 0.73 - 1.22 mg/dL Final 07/04/2022 1.16 0.73 - 1.22 mg/dL Final OFFICE DATA: POST-VOID RESIDUAL BLADDER VOLUME: N/A cc URINE POC GLUCOSE UA (POCT) Negative 09/15/2015 BILIRUBIN UA (POCT) Negative 09/15/2015 KETONE UA (POCT) Negative 09/15/2015 SPECIFIC GRAVITY UA (POCT) 1.010 09/15/2015 HEMOGLOBIN/BLOOD UA (POCT) Large 09/15/2015 PH UA (POCT) 6.5 09/15/2015 PROTEIN UA (POCT) Negative 09/15/2015 UROBILINOGEN UA (POCT) 0.2 09/15/2015 NITRITE UA (POCT) Negative 09/15/2015 LEUKOCYTES UA (POCT) Trace 09/15/2015 COLOR UA (POCT) Yellow 09/15/2015 CLARITY UA (POCT) Clear 09/15/2015 IMAGING: IMPRESSION: Now present is moderate to severe right-sided hydronephrosis. Further evaluation is needed. Multiple left renal simple cysts. Supervisor Dry Cleaning: PSCB Transcribe Date/Time: Jan 10 2024 4:43P Dictated by : TERRY SCHMIDT MD This examination was interpreted and the report reviewed and electronically signed by: TERRY SCHMIDT MD on Jan 10 2024 4:45PM EST Results-Findings * * *Final Report* * * DATE OF EXAM: Jan 10 2024 1:30PM [facility] 1055 - US KIDNEY/BLADDER / PROCEDURE REASON: Renal insufficiency * * * * Physician Interpretation * * * * EXAMINATION: RENAL ULTRASOUND CLINICAL HISTORY: Renal insufficiency. Patient has had prior cystectomy with conduit August 2016 TECHNIQUE: Sonography of the kidneys and urinary bladder was performed. Images were obtained and stored in a permanent archive. MQ: UR_1 COMPARISON: CT of 03/21/2017 RESULT: Right Kidney: -Renal length: 12.3 cm -Parenchyma: Normal parenchymal echogenicity. Normal parenchymal thickness. -Collecting system: Severe hydronephrosis. Proximal ureter measures 1.0 cm in caliber. -Calculus: No echogenic, shadowing calculus. -Lesion: None. Left Kidney: -Renal length: 10.8 cm -Parenchyma: Normal parenchymal echogenicity. Normal parenchymal thickness. -Collecting system: No hydronephrosis. -Calculus: No echogenic, shadowing calculus. -Lesion: Multiple simple cysts seen within the inferior pole measuring 2.2 x 1.9 x 2.1 cm and 1.2 x 0.8 x 1.0 cm, and within the upper to midpole measuring 0.9 x 0.6 x 1.0 cm. Bladder: Prior cystectomy. REVIEW OF SYSTEMS: Reviewed and otherwise non-contributory. HISTORY: PAST MEDICAL HISTORY Diagnosis Date AAA (abdominal [...] COLONOSCOPY 07/04/2017 recheck in 3 years, Dr. Tyson COLONOSCOPY FLX DX W/COLLJ SPEC WHEN PFRMD [...] VSL 09/12/2011 [facility] VAD W/SUBQ PORT/SKIDWAY WORKER CTR/PRPH INSJ 09/03/2014 Removal right IJ port TRANSLUMINAL ANGIOPLASTY - ILIAC 01/15/2004 bilateral stents TRANSLUMINAL ANGIOPLASTY - ILIAC 04/14/2014 bilateral. Social History Tobacco Use Smoking status: Every Day Packs/day: 1.00 Years: 53.00 Additional pack years: 0.00 Total pack years: 53.00 Types: Cigarettes Start date: 1970 Smokeless tobacco: Never Vaping Use Vaping Use: Never used Substance Use Topics Alcohol use: Yes Comment: occasional beer Drug use: No FAMILY HISTORY Problem Relation Age of Onset Stroke Father Ischemic Heart Disease Mother Heart Maternal Grandmother Heart Brother MEDICATIONS: Current Outpatient Medications Medication Sig [START ON 01/15/2024] acetaminophen-codeine (TYLENOL-COD #4) 300-60 mg per tablet Take 1 tablet by mouth every 4 hours as needed (30 day supply w/ 2 refills.) for up to 90 days. Do not start before January 15, 2024. predniSONE (DELTASONE) 10 mg tablet Take 1 tablet by mouth once daily as needed (joint swelling). lisinopril (ZESTRIL) 20 mg tablet Take 1 tablet by mouth once daily. atorvastatin (LIPITOR) 20 mg tablet Take 1 tablet by mouth once daily. amLODIPine (NORVASC) 10 mg tablet Take 1 tablet by mouth once daily. ibuprofen (MOTRIN) 800 mg tablet Take 1 tablet by mouth three times a day as needed for pain. gabapentin (NEURONTIN) 300 mg capsule Take 2 [...] No current facility-administered medications for this visit. PHYSICAL EXAMINATION: VITALS: Resp 20 Ht 172 cm (5' 7.72) Wt 59 kg (130 lb) BMI 19.93 kg/m GENERAL: alert, no distress, normal affect RESPIRATORY: normal effort ABDOMEN: soft, non-tender GENITOURINARY: Stoma appears to be normal, year is clear yellow EXTREMITIES: warm, no dependent edema, no malformations SKIN: no abnormal bruising, no rashes, no cyanosis NEUROLOGIC: normal gait, good manual dexterity, no paralysis ASSESSMENT/PLAN: 1. Hydronephrosis, unspecified hydronephrosis type - ICD9: 591, ICD10: N13.30 (primary diagnosis) - Will need to rule out obstruction. - Obtain CT ABD/PEL WO IVCON and WO Oral contrast -IF obstruction is present, will procedd with scheduling nephrostomy of right kidney 2. Malignant neoplasm of urinary bladder, unspecified site (HCC) - ICD9: 188.9, ICD10: C67.9 - s/p cystectomy 3. Kidney insufficiency - ICD9: 593.9, ICD10: N28.9 As above I will see patient by virtual visit after his CT scan Consultation requested by Rowena Sarabia APRN.MAINSTREAMING FACILITATOR [address] [facility] [address] for an opinion regarding Lela Guerrier patient and my final recommendations will be communicated back to the requesting physician by way of shared Medical record or letter via US mail. Neville Greco MD, MS Associate Staff [facility] [place] [facility] documented in this encounter [facility] 01-10-2024 Miscellaneous Notes Pt informed, verbalized understanding.Given to general handling supervisor Henna to contact patient and get appt scheduled ASAP. Hannah Freedman Please let the patient know the ultrasound of his kidneys showed moderate to severe hydronephrosis of the right kidney. This is when the kidney becomes stretched and swollen as the result of a build-up of urine inside them. He needs referral to urology JERRELL Rowena Sarabia APRN.CNP documented in this encounter [facility] 01-10-2024 History of Present illness Narrative Radiology Service Progress Note PATIENT NAME: Lela Guerrier DATE OF SERVICE: January 10, 2024 TIME: 1:34 PM PATIENT IDENTITY VERIFICATION COMPLETED USING TWO (2) IDENTIFIERS: Name and Date of confirmed by patient verbally. FALL SCREENING: Has the patient had 2 falls in the last year or 1 fall with injury or currently using an Ambulatory Assistive Device (Walker, Cane, Wheelchair, Crutches, etc.)? No PATIENT GENDER DATA: Male PATIENT RELEVANT IMPLANT DATA REVIEWED: Not Applicable PATIENT PRESENTS WITH AN IMPLANTABLE OR ATTACHED ASSEMBLER DC FIELD RING: No RADIOLOGY DEPARTMENT: Ultrasound PERIPHERAL IV DATA: Not applicable SIGNED BY: Rachel Anne RDMS January 10, 2024 1:34 PM documented in this encounter [facility] 01-08-2024 Instructions Rowena Sarabia APRN.CNP - 01/08/2024 8:26 AM EDT Michael hoyos for bruising documented in this encounter [facility] 01-08-2024 History of Present illness Narrative CC: Patient presents with: F/U 3 Month HPI Lela Guerrier is a 73 year old male who presents today for above PAIN ASSESSMENT DOCUMENTATION TOOL (PADT TM) He takes Tylenol with codeine three times a day for chronic neck pain. Is the amount of pain relief you [...] None g) Fatigue None h) Drowsiness None HTN-Medication changes:Yes Lisinopril increased to 20 mg daily 3 months ago Taking all medications as prescribed: Yes Side effects: No Home BP's: No Denies: headache, chest pain, palpitations, dyspnea, and peripheral edema. Last 3 Encounter BP Readings: Date: BP: 01/08/2024 123/68 10/20/2023 144/65[BP Cj[ 07/12/2023 132/72 Review of Systems See HPI PAST MEDICAL [...] COLONOSCOPY 07/04/2017 recheck in 3 years, Dr. Tyson COLONOSCOPY FLX DX W/COLLJ SPEC WHEN PFRMD [...] VSL 09/12/2011 [facility] VAD W/SUBQ PORT/SKIDWAY WORKER CTR/PRPH INSJ 09/03/2014 Removal right IJ port TRANSLUMINAL ANGIOPLASTY - ILIAC 01/15/2004 bilateral stents TRANSLUMINAL ANGIOPLASTY - ILIAC 04/14/2014 bilateral. ALLERGIES Bactrim [Sulfamethoxazole-Trimethoprim] MEDICATIONS acetaminophen-codeine (TYLENOL-COD #4) 300-60 mg per tablet Take 1 tablet by mouth every 4 hours as needed (30 day supply w/ 2 refills.) for up to 90 days. lisinopril (ZESTRIL) 20 mg tablet Take 1 tablet by mouth once daily. atorvastatin (LIPITOR) 20 mg tablet Take 1 tablet by mouth once daily. amLODIPine (NORVASC) 10 mg tablet Take 1 tablet by mouth once daily. ibuprofen (MOTRIN) 800 mg tablet Take 1 tablet by mouth three times a day as needed for pain. predniSONE (DELTASONE) 10 mg tablet Take 1 [...] Comment: occasional beer Drug use: No BP 123/68 Pulse 106 Resp 20 Wt 58.5 kg (129 lb) SpO2 97% BMI 19.78 kg/m Physical Exam Vitals reviewed. Constitutional: Appearance: Normal appearance. Cardiovascular: Rate and Rhythm: Normal rate and regular rhythm. Pulses: Normal pulses. Heart sounds: No murmur heard. Pulmonary: Effort: Pulmonary effort is normal. Breath sounds: Normal breath sounds. No wheezing, rhonchi or rales. Genitourinary: Comments: Ileal conduit intact, urine in bag clear yellow Skin: General: Skin is warm and dry. Neurological: Mental Status: He is alert. Psychiatric: Attention and Perception: Attention normal. Mood and Affect: Mood and affect normal. Speech: Speech normal. Behavior: Behavior normal. Behavior is cooperative. Thought Content: Thought content normal. Cognition and Memory: Cognition normal. Judgment: Judgment normal. Health maintenance reviewed with patient: RSV Vaccine(1 - 1-dose 60+ series) Never done BP Controlled (<130/80) due on 07/12/2023 Advance Directive Discussion due on 10/23/2023 Depression Assessment due on 10/23/2023 Shingrix Vaccine(1 of 2) due on 10/20/2024 Annual PCP Team Chronic Disease Visit due on 10/20/2024 Diabetes Screening due on 01/01/2027 Colorectal Cancer Screening due on 12/28/2028 Lipid Screening due on 01/01/2029 DTaP,Tdap,Td Vaccine(2 - Td or Tdap) due on 04/04/2029 Abdominal Aortic Aneurysm Screening Completed Influenza Vaccine Completed Hepatitis C Screening Completed Pneumococcal Vaccine: 65+ Completed Lung Cancer Screening Discontinued Covid-19 Vaccine Discontinued DATA REVIEWED: Most recent labs Latest Ref Rng 07/14/2023 10/20/2023 01/02/2024 Protein, Total 6.3 - 8.0 g/dL 6.9 Albumin 3.9 - 4.9 g/dL 3.8 (L) Calcium 8.5 - 10.2 mg/dL 8.4 (L) 9.0 9.0 Bilirubin, Total 0.2 - 1.3 mg/dL 0.3 Alkaline Phosphatase 38 - 113 U/L 80 AST 14 - 40 U/L 10 (L) ALT 10 - 54 U/L 5 (L) Glucose 74 - 99 mg/dL 102 (H) 89 109 (H) BUN 9 - 24 mg/dL 18 21 19 Creatinine 0.73 - 1.22 mg/dL 1.58 (H) 1.76 (H) 1.71 (H) Sodium 136 - 144 mmol/L 139 139 136 Potassium 3.7 - 5.1 mmol/L 4.7 4.8 5.2 (H) Chloride 97 - 105 mmol/L 107 (H) 104 102 CO2 22 - 30 mmol/L 21 (L) 25 27 Anion Gap 9 - 18 mmol/L 11 10 7 (L) eGFR >=60 mL/min/1.73m 46 (L) 40 (L) 42 (L) Latest Ref Rng 01/02/2024 LDL Cholesterol, Direct <100 mg/dL 53 ASSESSMENT/PLAN: 1. Cervicalgia - ICD9: 723.1, ICD10: [...] accidental overdose, addiction and abuse with patient PDMP website checked and validated. All prescriptions have been APPROPRIATELY filled. No suspicious activity was identified. 01/08/2024 by Rowena Sarabia APRN.MAINSTREAMING FACILITATOR - ACETAMINOPHEN 300 MG-CODEINE 60 MG TABLET - PREDNISONE 10 MG TABLET 2. Essential hypertension - ICD9: 401.9, ICD10: I10 - Controlled - Continue current medications - Recommend home blood pressure monitoring, to bring results to next visit - Encouraged sodium restriction, DASH or Mediterranean diet 3. Renal insufficiency - ICD9: 593.9, ICD10: N28.9 Suspect CKD. Discussed low salt diet, smoking cessation, avoiding NSAID's and excessive alcohol intake Evaluate further with: - US KIDNEY/BLADDER - URINALYSIS, WITH MICROSCOPIC 4. High risk medication use - ICD9: V58.69, ICD10: Z79.899 - TOX SCREEN ROUT UR 5. Encounter for drug screening - ICD9: V72.85, ICD10: Z02.83 - TOX SCREEN ROUT UR 6. S/P ileal conduit (HCC) - ICD9: V44.6, ICD10: Z93.6 intact 7. Chronic bronchitis, unspecified chronic bronchitis type (HCC) - ICD9: 491.9, ICD10: J42 stable 8. Peripheral vascular disease, unspecified (HCC) - ICD9: 443.9, ICD10: I73.9 stable Prescription instructions reviewed with patient as applicable. Potential red flag symptoms discussed with the patient. Reviewed appropriate action plan to take if red flag symptoms occur. Patient agreeable to treatment plan. Rowena Sarabia APRN.MAINSTREAMING FACILITATOR documented in this encounter [facility] 12-29-2023 History and physi mauricio note Note Date/Time December 29, 2023 7:01am [facility] Medical Records Department [address] [place] [address] History & Physical Exam 12/29/23 0700 MR#: [id number] Acct: [id number] Name: LELA GUERRIER Rep #:[id number] : 1950 73 From: Ochoa Tyson MD PCP: Dr. Arnie Chiang MD Status:[facility] Location: [place] [address] History and Physical Date of Admission: 12/29/23 Visit Reasons: DISCUSS CAROTID RESULTS COLONOSCOPE SCREENING Chief Complaint: yearly PAD/ AAA and c-scope Nursing Consultant Required: No Is patient in pain?: No Allergies sulfamethoxazole [From Bactrim] Adverse Reaction (Verified 12/13/23 09:24) Othertrimethoprim [From Bactrim] Adverse Reaction (Verified 12/13/23 09:24) Other Medications acetaminophen 300 mg-codeine 60 mg tablet 1 ea PO Q4H PRN PRN Pain 07/22/13 [History Confirmed 06/29/21] ibuprofen 600 mg tablet 800 mg PO TID PRN PRN Swelling 07/22/13 [History Confirmed 06/29/21] gabapentin 300 mg capsule 300 mg PO 5X/DAY 03/07/16 [History Confirmed 06/29/21] tamsulosin 0.4 mg capsule 0.4 mg PO DAILY 03/07/16 [History Confirmed 06/29/21] atorvastatin 20 mg tablet 20 mg PO DAILY 05/27/21 [History Confirmed 06/29/21] ibuprofen 800 mg tablet 800 mg PO PRN PRN Pain 05/27/21 [History Confirmed 06/29/21] prednisone 10 mg tablet 10 mg PO PRN PRN Allergy Symptoms 05/27/21 [History Confirmed 06/29/21] clopidogrel 75 mg tablet See Rx Instructions .Route .COMPLEX #90 tabs 11/14/23 [Rx] amlodipine 10 mg tablet 10 mg PO 12/13/23 [History Confirmed 12/13/23] lisinopril 20 mg tablet 20 mg PO 12/13/23 [History Confirmed 12/13/23] PFSH Medical History AAA (abdominal aortic aneurysm) BPH (benign prostatic hyperplasia) Carotid artery disease GERD (gastroesophageal reflux disease) HTN (hypertension) PAD (peripheral artery disease) PAD (peripheral artery disease) Personal history of bladder cancer Personal history of colon cancer Personal history of prostate cancer Surgical History History of bladder surgery History of radical prostatectomy History of total cystectomy S/P arteriogram of extremity S/P colectomy S/P colonoscopy S/P peripheral artery angioplasty Social History Smoking Status: Current every day smoker tobacco type: cigarettes HPI HPI HPI: 73-year-old gentleman. On December 01, 2023 he had aortic ultrasound performed. Mid abdominal aortic aneurysm measuring 3.14 x 3.31 cm in diameter. Previously it measured 3.02 x 3.07 cm on April 27, 2021. As noted below he has had updated noninvasive lower extremity studies on November 2023 and carotid duplex exam. The carotid exam demonstrates less than 50% stenosis of the right internal carotid artery and 50 to 69% stenosis of the left internal carotid artery. Lower extremity study demonstrates moderately severe disease bilaterally. I have personally reviewed and assisted in interpreting these evaluations. The patient is also being referred by Dr. Arnie Chiang for consideration of a surveillance colonoscopy. July 25, 2013 because of a proximal rectal carcinoma I assisted him with a laparoscopic appendectomy and a laparoscopic converted to open low anterior resection of the colon with abscess drainage. The tumor measured 7 x 5 x 1.5 cmwas well differentiated it invaded the muscularis propria into the subserosal fat but but did not extend to the serosal surface. 5 out of 29 lymph nodes werepositive. 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 Once again the patient's bilateral extremity peripheral arterial occlusive disease is stabilized with angioplasty and stenting. He has had multiple previous bilateral iliac endovascular interventions. Unfortunately he continues to smoke cigarettes and over many years has no intention of ceasing Date of Procedure: 06/21/21 Pre-Operative Diagnosis: rECURRENT BILATERAL EXTREMITY MULTISEGMENTAL PERIPHERALVASCULAR OCCLUSIVE DISEASE Post-Operative Diagnosis: Occlusion right external iliac artery, in-stent stenosis right common iliac artery, in-stent stenosis left common iliac artery, in-stent stenosis left external iliac artery Surgery/Procedure Performed:: Abdominal pelvic arteriogram with right external iliac 6 x 150 mm EverCross angioplasty and 8 x 150 ever flex stenting with subsequent 7 x 200 mm ever cross angioplasty Left common iliac and external iliac 7 x 200 ever cross angioplasty The patient has no particular complaints today. He states that he is generalized slowing down. He is on no chronic narcotic medication. He claims he is able to walk around the [facility]. He denies any abdominal problems. He claims his ileostomy is functioning well from his radical cystectomy. Deniesany GI problems. He has had no focal neurologic issues. December 01, 2023 Reason For Study: PAD Procedure A bilateral lower extremity continuous wave Doppler with analog waveform analysis,segmental pressures,and ankle brachial indexes without exercise. Left Segmental Pressures Left brachial= 145mmHg. Left thigh = 116mmHg. Left calf = 91mmHg. Left posteriortibial artery = 78mmHg. Left dorsalis pedis artery = 64mmHg. Left digit = 65 mmHg. The left dorsalis pedis waveforms are monophasic. The left posterior tibial artery waveforms are biphasic. Right Segmental Pressures Right brachial= 139mmHg. Right thigh = 122mmHg. Right calf = 94mmHg. Right posterior tibial artery = 106mmHg. Right dorsalis pedis artery = 94mmHg. Right digit = 70 mmHg. The right dorsalis pedis waveforms are biphasic. The right posterior tibial artery waveforms are biphasic. Indices The right ankle brachial index by the dorsalis pedis is 0.65. The right ankle brachial index by the posterior tibial artery is 0.73. The right digital-brachial index is 0.48. The left ankle brachial index by the dorsalis pedis is 0.44. The left ankle brachial index by the posterior tibial artery is 0.54. The left digital-brachial index is 0.45. VL/Lower Ext Art Exam w/o Exercis Interpretation Summary Abnormal right lower extremity posterior tibialis and dorsalis pedis ankle-brachial indices at rest at 0.73 and 0.65 respectively with biphasic Doppler waveforms consistent with moderately severe arterial occlusive disease. Digital waveforms are noted to bleed depressed consistent with significant distal small vessel disease. The right digital brachial index is 0.48 Abnormal left lower extremity posterior tibialis and dorsalis pedis ankle-brachial indices of 0.54 and 0.44 respectively with biphasic waveform of the posterior tibialis with a monophasic phasic waveform of the dorsalis pedis. This approaches severe disease. Digital waveforms are significantly depressed consistent with significant small vessel disease. The left digital brachial index is 0.45 Findings do not show deterioration from a previous examination of July 13, 2020 Ordering Physician: Ochoa Tyson Referring Physician: MD Berhane Chiang Performed By: Darline Valadez RVT December 01, 2023 Reason For Study: Carotid artery disease Rt. Velocities/BP Lt. Velocities/BP Prox CCA 73/9.7 cm/sec. Prox CCA 81.4/15.1 cm/sec. Mid CCA 64.5/11.6 cm/sec. Mid CCA 64.2/12.6 cm/sec. Dist CCA 57.9/13.5 cm/sec. Dist CCA 60.5/11.4 cm/sec. Prox ICA 94.9/12.6 cm/sec. Prox ICA 102.8/17 cm/sec. Mid ICA 124.7/29.8 cm/sec. Mid ICA 166.7/42.2 cm/sec. Dist ICA 72.8/22.5 cm/sec. Dist ICA 80.9/11.5 cm/sec. Rt. ICA/CCA = 1.93. Lt. ICA/CCA = 2.60. Prox ECA 218.5/8.6 cm/sec. Prox ECA 177/11.1 cm/sec. Rt. Vert. 30.8/8.1 cm/sec. Lt. Vert. 47.6/10.2 cm/sec. Right Extracranial There is heterogeneous, irregular atherosclerotic plaque noted in the right common carotid artery. There is heterogeneous, irregular atherosclerotic plaque noted in the right internal carotid artery. There is heterogeneous, irregular atherosclerotic plaque noted in the right external carotid artery. Antegrade flow is noted in the right vertebral artery. Left Extracranial There is heterogeneous, irregular atherosclerotic plaque noted in the left common carotid artery. There is heterogeneous, irregular atherosclerotic plaque noted in the left internal carotid artery. There is heterogeneous, irregular atherosclerotic plaque noted in the left external carotid artery. Antegrade flow is noted in the left vertebral artery. Procedure This is a Carotid Duplex examination using B-mode, color flow and specral Doppler. Carotid Duplex 56730. Exam performed in department. VL/Carotid Duplex Ultrasound Interpretation Summary Irregular calcific plaque with shadowing at the proximal right internal carotid artery with less than 50% stenosis but very close to that range. Greater than 50% stenosis right external carotid artery Irregular calcific plaque with shadowing at the proximal left internal carotid artery with 50 to 69% stenosis. Less than 50% stenosis left external carotid artery Patent antegrade vertebral arteries bilaterally Findings suggest progression of stenosis of the left internal carotid artery from the previous examination of August 06, 2021 Ordering Physician: Ochoa Tyson Referring Physician: Arnie Chiang M.D. Performed By: Darline Valadez RVT General General: No weight change, appetite, fatigue, colon cancer, breast cancer or weakness HEENT HEENT: No difficulty swallowing, eye injury, eye surgery, swollen glands or hoarseness Endo Endocrine: No thyroid disease, diabetes mellitus, thyroid cancer, Hair loss, heat intolerance or cold intolerance Skin Skin: No rash or changing moles Musc Musculoskeletal: Yes arthritis and rheumatoid arthritis; No back problems, gout or joint pain Cardio Cardiovascular: Yes high blood pressure; No murmur, pacemaker, heart disease, atrial fibrillation, heart attack, heart stent, palpitations, shortness of breat with exertion or chest pain Psych Psychiatric: No depression, anxiety or hearing voices Resp Respiratory: Yes shortness of breath, No sleep apnea, No cough, Yes COPD, No asthma, No emphysema and No wheezing Gastro Gastrointestinal: No abdominal pain, No nausea or vomiting, No diarrhea, No constipation, No blood in stool, No acid reflux, No hemorrhoids, No ulcers, No gallbladder problem and No black,tarry stools Panchito Hematologic: Yes blood thinners, No blood disorders, No bleeding, No anemia and No blood clots Neuro Neurologic: Yes numbness, Yes tingling and No weakness Exam Const General: cooperative, comfortable and no acute distress Nutritional Appearance: underweight Other: Very heavy odor of tobacco. Dense tobacco staining fingers of the right hand. Patient appears older than stated age [facility] Head: normal to inspection Neck Other: Cervical kyphosis noted. Chest Other: Increased anterior posterior diameter. Resp Other: Very poor respiratory excursion. Breath is difficult to Cardio Rate: regular rate Rhythm: regular rhythm Other: Bilateral radials 3+. Bilateral femorals 3+. Bilateral popliteals DPs and PTs not palpable GI Other: Soft, loop ileostomy right lower quadrant well-healed midline incision, no hepatosplenomegaly no masses. Musc Other: Cervical kyphosis noted. Skin Other: Marked dependent rubor from the knees distally. Digital atrophy. Markedly hypertrophic nails particularly of the great toenails. Neuro General: patient alert, patient awake and patient oriented x3 Extrem General: no calf tenderness Other: Chronic ischemic changes bilateral feet. Hair loss. Dependent rubor. Diminished venous filling. Psych Appearance: grossly normal Assessment and Plan Assessment and Plan (1) Carotid artery disease: Status: Acute Qualifiers: Carotid artery disease type: stenosis Laterality: bilateral Qualified Code(s): I65.23 - Occlusion and stenosis of bilateral carotid arteries Plan: Less than 50% stenosis right internal carotid. 50 to 69% stenosis of the left internal carotid. Asymptomatic. Will plan follow-up carotid duplex imaging at 1 year. (2) PAD (peripheral artery disease): Status: Acute Plan: Moderately severe bilateral extremity peripheral arterial occlusive disease. Stable. Patient is at high risk for intervention. Remain with conservative recommendations at this time. (3) Personal history of colon cancer: Status: Acute Plan: The patient's most recent colonoscopy was June 2017. Had a patent colorectal anastomosis at that time and diverticular disease. Recommend follow-up colonoscopy. He is aware of the technique, benefit, risk and alternatives. We will schedule and proceed as noted. (4) AAA (abdominal aortic aneurysm): Status: Acute Qualifiers: Presence of rupture: without rupture Qualified Code(s): I71.4 - Abdominal aortic aneurysm, without rupture Plan: 3.3 cm infrarenal abdominal aortic aneurysm. Stable. Plan aortic duplex ultrasound 2 years. Copy: Dr. Arnie Tyson M.D., F.A.C.S. I have examined the patient and the H&P has been reviewed. There are no clinicalchanges since date of exam. Ochoa Tyson M.D., F.A.C.S. 12/29/23 0701 <Electronically signed by Ochoa Tyson MD> Cosigner Signature (if applicable): CC: Dr. Ochoa Tyson MD; Dr. Arnie Chiang MD~ Signed [facility] Work Phone: [phone] 720-271803-08-2024 Procedure [facility] 12-29-2023 Procedure [facility]10-31-2023 Miscellaneous Notes* Telephone Encounter - Laquita Merida LPN - 08/22/2023 2:01 PM EDT Patient has been identified by name and [...] 07/12/2023 132/72 Please advise. Thank you. Laquita Mreida LPN. [facility] Instructions* Patient Instructions* Rowena Capone APRN.CNP - 07/12/2023 9:18 AM EDT Recombinant shingles vaccine (Shingrix) is recommended; 2 doses 2-6 months apart. Please read information, check with your insurance, and schedule vaccination at your local pharmacy. A prescription is not required. If you are certain you have coverage to receive this vaccine in the office, we can schedule this for you. [facility] History of Present illness Narrative* Rowena Capone APRN.CNP - 07/12/2023 9:16 AM EDT CC: Patient presents with: F/U 3 Month Immunizations: Flu vaccination HPI Lela Guerrier is a 73 year old male [...] COLONOSCOPY 07/04/2017 recheck in 3 years, Dr. Tyson COLONOSCOPY FLX DX W/COLLJ SPEC WHEN PFRMD [...] VSL 09/12/2011 [facility] VAD W/SUBQ PORT/SKIDWAY WORKER CTR/PRPH INSJ 09/03/2014 Removal right IJ port TRANSLUMINAL ANGIOPLASTY - ILIAC 01/15/2004 bilateral stents TRANSLUMINAL ANGIOPLASTY - ILIAC 04/14/2014 bilateral. ALLERGIES Bactrim [Sulfamethoxazole-Trimethoprim] MEDICATIONS predniSONE (DELTASONE) 10 mg tablet Take 1 tablet by mouth once daily as needed (joint swelling). acetaminophen-codeine (TYLENOL-COD #4) 300-60 mg per tablet Take 1 tablet by mouth every 4 hours asneeded (30 day supply w/ 2 refills.) for [...] 2 Puffs as instructed every 4 hours asneeded for Wheezing/Shortness of Breath. diphenhydrAMINE-Acetaminophen 25-500 mg [...] All prescriptions have been APPROPRIATELY filled. No suspiciousactivity was identified. 07/12/2023 by Rowena Capone APRN.MAINSTREAMING FACILITATOR - ACETAMINOPHEN 300 MG-CODEINE 60 MG TABLET 2. Need for influenza vaccination - ICD9: V04.81, ICD10: Z23 - INFLUENZA VACCINE, PRSV FREE, AGE 65+ YR, HIGH DOSE, QUADRIVALENT (FLUZONE HIGH-DOSE) Prescription instructions reviewed with patient as applicable. Potential red flag symptoms discussed with the patient. Reviewed appropriate action plan to take if red flag symptoms occur. Patient agreeable to treatment plan. Rowena Capone APRN.SHANAE documented in this encounterDay[facility] Miscellaneous Notes* Telephone Encounter - Nancy Hedrick LPN - 05/29/2023 2:23 PM EDT Patient phones requesting refills as follows: Requested Prescriptions Pending Prescriptions Disp Refills predniSONE (DELTASONE) 10 mg tablet 90 tablet 0 Sig: Take 1 tablet by mouth once daily as needed (joint swelling). GUY-04/20/23 Labs-07/04/22 NOV-07/12/23 Please review and advise. Nancy Hedrick LPN documented in this encounterDay[facility]03[facility]28-[facility] History of Present illness Narrative* Rowena Capone APRN.CNP - 01/17/2023 7:57 AM EDT CC: Patient presents with: F/U 3 Month: Requesting 2 new order for parking placards HPI Lela Guerrier is a 72 year old male who presents today for above. Patient is doing well overall. Lost a few pounds recently due to illness. Weight is stable now and will probably start gaining backnow that he is eating better. Taking Tylenol [...] COLONOSCOPY 07/04/2017 recheck in 3 years, Dr. Tyson COLONOSCOPY FLX DX W/COLLJ SPEC WHEN PFRMD [...] VSL 09/12/2011 [facility] VAD W/SUBQ PORT/SKIDWAY WORKER CTR/PRPH INSJ 09/03/2014 Removal right IJ port [...] 1 tablet by mouth every 4 hours asneeded (30 day supply w/ 2 refills.) for up to 90 days. gabapentin (NEURONTIN) 300 mg capsule Take 2 capsules by mouth three times daily for 360 days. clopidogrel (PLAVIX) 75 mg tablet Take 1 tablet by mouth once daily. Post stents. albuterol HFA (VENTOLIN HFA) 90 mcg/actuation inhaler Inhale 2 Puffs as instructed every 4 hours asneeded for Wheezing/Shortness of Breath. diphenhydrAMINE-Acetaminophen 25-500 mg [...] with patient, and I recommended no further interventionat this time. ASSESSMENT/PLAN: 1. Essential hypertension - [...] All prescriptions have been APPROPRIATELY filled. No suspiciousactivity was identified. 01/17/2023 by Rowena Capone APRN.MAINSTREAMING FACILITATOR - ACETAMINOPHEN 300 MG-CODEINE 60 MG TABLET [...] plan. Rowena Capone APRN.CNP documented in this encounterDay[facility]01-[facility]23 Miscellaneous Notes* Telephone Encounter - Becky Cruz LPN - 11/10/2022 4:57 PM EST Patient has been identified by name and date of : Yes, Provider Dr Chiang Date 11/10/22 Time4:59 pm Patient phones for refill(s): Requested Prescriptions [...] you. Becky Cruz LPN documented in this encounterDay[facility]12-19-2022 Instructions* Patient Instructions* Rowena Capone, HYDRO STATION SUPERVISOR.MAINSTREAMING FACILITATOR - 10/10/2022 9:14 AM EST Screening schedule [...] review all the medicines you take, even [id number] medicines. As you get older, the way medicines work in your body can change. Some medicines, or combinations of medicines, can make you sleepy or dizzy andcan cause you to fall. 3. Have your [...] have certain medical conditions. documented [facility] History of Present illness Narrative* Rowena Capone APRN.CNP - 10/10/2022 9:13 AM EST Lela Guerrier is a 72 year old male here for a Medicare Subsequent Annual Wellness Visit Health Risk Assessment In general, health is: Good Concerns with balance:Not at all Concerns with teeth or dentures:Not at all Concerns with sexual function:Not at all [place] anxious, stressed, angry, irritable, lonely, isolated, or [...] whole grains, and fiber-rich foods: More than halfthe days Number of days per week engages in exercise: walks about 3 days a week on the treadmill for about 1/4 a mile each time Average alcohol consumption: Monthly or less Current Providers Specialists: I have reviewed specialist-related care of the patient in the medical record. Current care team: Patient Care Team: Arnie Chiang MD as PCP - General Outside specialists seen: [facility] Medical/Family history review Reviewed and updated [...] with patient, and I recommended no further interventionat this time. Cognitive screening Mini Cog Score: [...] All prescriptions have been APPROPRIATELY filled. No suspiciousactivity was identified. 10/10/2022 by SEBASTIAN Finney APRN.CNP documented in this encounterDay[facility]12[facility]14-2022 Miscellaneous Notes* Telephone Encounter - Rowena Capone APRN.CNP - 10/05/2022 3:52 PM EST PDMP website checked and validated. All prescriptions have been APPROPRIATELY filled. No suspiciousactivity was identified. 10/05/2022 by Rowena Capone APRN.CNP * Telephone Encounter - Laquita Merida LPN - 10/05/2022 1:23 PM EST Patient has been identified by name and [...] you. Laquita Merida LPN documented in this encounterDayton [facility] Center09-20-2022 Instructions* Patient Instructions* Rowena Capone APRN.CNP - 07/12/2022 9:50 AM EDT Recombinant shingles vaccine (Shingrix) is recommended; 2 doses 2-6 months apart. Please read information, check with your insurance, and schedule vaccination at your local pharmacy. A prescription is not required. If you are certain you have coverage to receive this vaccine in the office, we can schedule this for you. documented in this encounterDay[facility]09-20-2022 History of Present illness Narrative* Rowena Capone APRN.CNP - 07/12/2022 9:48 AM EDT CC: Patient presents with: F/U 3 Month Immunizations: Flu vaccination HPI Lela Guerrier is a 72 year old male [...] COLONOSCOPY 07/04/2017 recheck in 3 years, Dr. Tyson COLONOSCOPY FLX DX W/COLLJ SPEC WHEN PFRMD [...] VSL 09/12/2011 [facility] VAD W/SUBQ PORT/SKIDWAY WORKER CTR/PRPH INSJ 09/03/2014 Removal right IJ port TRANSLUMINAL ANGIOPLASTY - ILIAC 01/15/2004 bilateral stents TRANSLUMINAL ANGIOPLASTY - ILIAC 04/14/2014 bilateral. ALLERGIES Bactrim [Sulfamethoxazole-Trimethoprim] MEDICATIONS acetaminophen-codeine (TYLENOL-COD #4) 300-60 mg per tablet Take 1 tablet by mouth every 4 hours asneeded (30 day supply w/ 2 refills.) for [...] 2 Puffs as instructed every 4 hours asneeded for Wheezing/Shortness of Breath. diphenhydrAMINE-Acetaminophen 25-500 mg [...] Panel: No results found for: UQCANN, UQBNZL, OLW2XGN, UQAMPH, UQMAMP, UQBUPRE, UQNORBUP, UQMTHD, UQEDDP, UQTRAM, UQDTRM, UQFNTL, UQNFTL, UQCODE, UQMORP, UQDCDN, UQHCOD, UQOXYC, UQHMOR, UQOXYM, UQCREA, UQPH,UQSPGR, UQOXID, UQSPQ Phencyclidine Urine Date Value Ref [...] spent approximately 20 minutes in counseling regarding medicationsand coordinating care. Rowena Capone APRN.CNP documented in this encounterDayton [facility] Center09-12-2022 Miscellaneous Notes* Telephone Encounter - Mala Cortes RN - 07/04/2022 9:51 AM EDT Pt did not fill refill in time, [...] you. Mala Cortes RN documented in this encounterDayton [facility] Center07-19-2022 Miscellaneous Notes* Telephone Encounter - Rowena Capone APRN.CNP - 05/10/2022 12:56 PM EDT PDMP website checked and validated. All prescriptions have been APPROPRIATELY filled. No suspiciousactivity was identified. 05/10/2022 by Rowena Capone APRN.CNP * Telephone Encounter - Laquita Merida LPN - 05/10/2022 11:00 AM EDT Patient has been identified by name and [...] you. Laquita Merida LPN documented in this encounterDayton [facility] Center07-19-2022 Miscellaneous Notes* Telephone Encounter - Laquita Merida LPN - 05/10/2022 11:05 AM EDT Patient has been identified by name and [...] you. Laquita Merida LPN documented in this encounterDayton [facility] Center07-15-2022 History of Present illness Narrative* Noreen Maria MA - 05/06/2022 1:59 PM EDT POPULATION HEALTH NAVIGATION OUTREACH Action/FYI unable to lm for pt to call to schedule colonoscopy, Datamolinohart message sent for pt to call to schedule colonoscopy added notes to upcoming ov Pt identified by name and : NO Outreach Outcome/Action Unable to reach patient: Phone number not valid / voicemail full Mobile Media Contenthart message sent Did you use a PCP flex slot to schedule this appointment? N/A Reason for Outreach Care Gap or Scheduling/Wellness visits Payer: Payor: [employer] MEDICARE / Plan: [employer] GOLD PLUS / Product Type: HMO / Care Gap [...] 06, 2022 2:01 PM documented in this encounterDayton [facility] Center06-24-2022 Instructions* Patient Instructions* Rowena Capone APRN.CNP - 04/15/2022 9:27 AM EDT GET COLONOSCOPY SOON WITH DR. TYSON documented in this encounterDayton Va Medical Center06-24-2022 History of Present illness Narrative* Rowena Capone APRN.CNP - 04/15/2022 9:17 AM EDT CC: Patient presents with: F/U 3 Month HPI Lela Guerrier is a 72 year old male [...] PERIPH VASCULAR DIS NOS Managed by Dr. Tyson. Taking Plavix as prescribed Essential hypertension Medication [...] appointment however patient has not called Dr. Tyson yet. REVIEW OF SYSTEMS General: no fevers, [...] COLONOSCOPY 07/04/2017 recheck in 3 years, Dr. Tyson COLONOSCOPY FLX DX W/COLLJ SPEC WHEN PFRMD [...] VSL 09/12/2011 [facility] V[facility] W/SUBQ PORT/SKIDWAY WORKER CTR/PRPH INSJ 09/03/2014 Removal right IJ port TRANSLUMINAL ANGIOPLASTY - ILIAC 01/15/2004 bilateral stents TRANSLUMINAL ANGIOPLASTY - ILIAC 04/14/2014 bilateral. ALLERGIES Bactrim [Sulfamethoxazole-Trimethoprim] MEDICATIONS acetaminophen-codeine (TYLENOL-COD #4) 300-60 mg per tablet Take 1 tablet by mouth every 4 hours asneeded (30 day supply w/ 2 refills.) for [...] 2 Puffs as instructed every 4 hours asneeded for Wheezing/Shortness of Breath. ondansetron (ZOFRAN) 8 [...] V10.05, ICD10: Z85.[address] Tyson and scheduling colonoscopy stressed to patient again, he verbalizedunderstanding and will call soon 7. Cervicalgia - [...] All prescriptions have been APPROPRIATELY filled. No suspiciousactivity was identified. 04/15/2022 by Rowena Capone APRN.CNP 8. Encounter for screening for lung cancer [...] plan. Rowena Capone APRN.CNP documented in this encounterDay[facility]11-16-2017 History of Past illness Narrative* [...] of this encounter (statuses as of 04/15/2022) [facility] Narrative* [...] of this encounter (statuses as of 05/06/2022) [facility] Narrative* [...] of this encounter (statuses as of 05/10/2022) [facility] Narrative* [...] of this encounter (statuses as of 05/10/2022) [facility] Narrative* [...] of this encounter (statuses as of 07/05/2022) [facility] Narrative* [...] tract symptom s 12/01/2008 09/28/2017 Overview: TRACY 10-31: smooth and enlarged PSA 1.4 in 8- documented as of this encounter (statuses as of 07/12/2022) [facility] Narrative* [...] of this encounter (statuses as of 09/05/2022) [facility] Narrative* [...] of this encounter (statuses as of 10/05/2022) [facility] Narrative* [...] of this encounter (statuses as of 10/10/2022) [facility] Narrative* [...] of this encounter (statuses as of 11/11/2022) [facility] Narrative* [...] tract symptom s 12/01/2008 09/28/2017 Overview: TRACY 1: smooth and enlarged PSA 1.4 in 8-09 documented as of this encounter (statuses as of 01/17/2023) [facility] Narrative* [...] of this encounter (statuses as of 05/30/2023) [facility] Narrative* [...] of this encounter (statuses as of 07/12/2023) [facility] Narrative* [...] of this encounter (statuses as of 07/15/2023) [facility] Narrative* [...] of this encounter (statuses as of 08/23/2023) [facility] Narrative* [...] rinary tract symptoms 12/01/2008 09/28/2017 Overview: TRACY 1: smooth and enlarged PSA 1.4 in 8-09 documented as of this encounter (statuses as of 01/02/2024) [facility] Narrative* [...] as of this encounter (statuses as of 01/08/2024) [facility] Narrative* [...] as of this encounter (statuses as of 01/09/2024) [facility] Narrative* [...] as of this encounter (statuses as of 01/11/2024) [facility] Narrative* [...] as of this encounter (statuses as of 01/11/2024) [facility] Narrative* [...] rinary tract symptoms 12/01/2008 09/28/2017 Overview: TRACY 10-31: smooth and enlarged PSA 1.4 in 8-09 documented as of this encounter (statuses as of 01/12/2024) [facility] Narrative* [...] as of this encounter (statuses as of 01/16/2024) [facility] Narrative* [...] as of this encounter (statuses as of 01/31/2024) [facility] Narrative* [...] as of this encounter (statuses as of 01/31/2024) [facility] Narrative* [...] as of this encounter (statuses as of 02/06/2024) [facility]* Diagnosis Essential hypertension- Primary Unspecified essential [...] esophagitis Esophageal reflux [facility] Diagnosis 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 [facility]* Diagnosis Cervicalgia Pure hypercholesterolemia documented [facility] this encounter [facility]* Diagnosis Cervicalgia documented [facility] this [facility]* Diagnosis Cervicalgia- Primary Encounter for drug screening Other specified examination Encounter for long-term current use of high risk medication Need for influenza vaccination Need for prophylactic vaccination and inoculation against influenza [facility]* Diagnosis Screening for colon cancer Special screening for malignant neoplasms, colon [facility]* Diagnosis Cervicalgia [facility] Diagnosis Medicare annual wellness visit, subsequent- Primary Routine general medical examination at a health care facility Cervicalgia [facility]* Diagnosis Pure hypercholesterolemia [facility]* Diagnosis Essential hypertension- Primary Unspecified essential hypertension Cervicalgia Tobacco use disorder S/P ileal conduit (HCC) Ileostomy status Peripheral vascular disease, unspecified (HCC) Peripheral vascular disease, unspecified Encounter for drug screening Other specified examination High risk medications (not anticoagulants) long-term use Encounter for long-term (current) use of other medications Chronic bronchitis, unspecified chronic bronchitis type (HCC) [facility]* Diagnosis Cervicalgia [facility]* Diagnosis Cervicalgia- Primary Need for influenza vaccination Need for prophylactic vaccination and inoculation against influenza documented [facility]* Diagnosis Kidney insufficiency- Primary Unspecified disorder of kidney and ureter [facility]* Diagnosis Cervicalgia documented in this encounter [facility] noteNo assessment information availableWProMedica F[facility] Work Phone: Evaluation note* Diagnosis Onset Date Resolution Status AAA (abdominal aortic aneurysm) acute Carotid artery disease acute PAD (peripheral artery disease) acute Personal history of colon cancer acute [facility] Work Phone: Evaluation note* Diagnosis Kidney insufficiency- Primary Unspecified disorder of kidney and ureter Pure hypercholesterolemia documented [facility] this encounter [facility]* Diagnosis Cervicalgia- Primary Essential hypertension Unspecified essential hypertension Renal insufficiency Unspecified disorder of kidney and ureter High risk medication use Encounter for long-term (current) use of other medications Encounter for drug screening Other specified examination S/P ileal conduit (HCC) Ileostomy status Chronic bronchitis, unspecified chronic bronchitis type (HCC) Peripheral vascular disease, unspecified (HCC) Peripheral vascular disease, unspecified documented [facility] encounter [facility]* Diagnosis Abnormal urinalysis- Primary Other nonspecific finding on examination of urine Bacteria in urine Other nonspecific finding on examination of urine documented [facility]* Diagnosis Hydronephrosis, unspecified hydronephrosis type- Primary documented [facility] this [facility]* Diagnosis Renal insufficiency Unspecified disorder of kidney and ureter documented [facility] this encounter [facility]* Diagnosis Hydronephrosis, unspecified hydronephrosis type- Primary Malignant neoplasm of urinary bladder, unspecified site (HCC) Kidney insufficiency Unspecified disorder of kidney and ureter documented [facility] this encounter [facility]* Diagnosis Hydronephrosis, unspecified hydronephrosis type [facility]* Diagnosis Cervicalgia documented in this [facility]* Diagnosis Hydronephrosis, unspecified hydronephrosis type- Primary Kidney insufficiency Unspecified disorder of kidney and ureter Malignant neoplasm of urinary bladder, unspecified site (HCC) documented [facility] this encounter [facility]* Diagnosis Hydronephrosis of right kidney- Primary Hydronephrosis History of total cystectomy Personal history of surgery to other organs History of bladder cancer Personal history of malignant neoplasm of bladder Stage 3a chronic kidney disease (HCC) documented [facility] this encounter [facility]* Diagnosis Hydronephrosis of right kidney Hydronephrosis documented [facility] this encounter [facility]* Diagnosis Cervicalgia documented [facility] this [facility]* Diagnosis Anemia, unspecified type- Primary MIRIAM (acute kidney injury) (HCC) Acute kidney failure, unspecified Pleural effusion Unspecified pleural effusion S/P laparotomy with lysis of adhesions Small bowel obstruction due to adhesions (HCC) Intestinal or peritoneal adhesions with obstruction (postoperative) (postinfection) Debility Debility, unspecified Pleural effusion Unspecified pleural effusion [facility]* Diagnosis Essential hypertension- Primary Unspecified essential [...] Gastroesophageal reflux disease without esophagitis Esophageal reflux Cervicalgia documented [facility] this encounter [facility]* Diagnosis Essential hypertension- Primary Unspecified [...] Gastroesophageal reflux disease without esophagitis Esophageal reflux Pleural effusion Unspecified pleural effusion documented [facility]* Diagnosis Essential hypertension- Primary Unspecified [...] Gastroesophageal reflux disease without esophagitis Esophageal reflux Stage 3a chronic kidney disease (HCC)- Primary Peripheral vascular disease, unspecified (HCC) Peripheral vascular disease, unspecified Peripheral polyneuropathy Unspecified hereditary and idiopathic peripheral neuropathy Pure hypercholesterolemia Cervicalgia Essential hypertension Unspecified essential hypertension Anemia, unspecified type Chronic bronchitis, unspecified chronic bronchitis type (HCC) Encounter for immunization Need for other specified prophylactic vaccination against single bacterial disease documented [facility]* Diagnosis Essential hypertension- Primary Unspecified [...] Gastroesophageal reflux disease without esophagitis Esophageal reflux Cervicalgia [facility]* Diagnosis SBO (small bowel obstruction) (Multi)- Primary Unspecified intestinal obstruction SBO (small bowel obstruction) (Multi) Unspecified intestinal obstruction H/O total cystectomy Difficulty walking Difficulty in walking HTN (hypertension) Unspecified essential hypertension Hyperlipidemia Other and unspecified hyperlipidemia CAD (coronary artery disease) Coronary atherosclerosis of unspecified type of vessel, [place] or graft Aortic aneurysm ([facility]) Aortic aneurysm of unspecified site without mention of rupture Peripheral vascular disease ([facility] Unspecified peripheral vascular disease LUKE (obstructive sleep apnea) Obstructive sleep apnea (adult) (pediatric) Acute kidney injury (nontraumatic) ([facility]) Acute kidney failure, unspecified Anemia Unspecified anemia documented in this encounter [facility] Work Phone: Evaluation note* Diagnosis Essential hypertension- Primary Unspecified essential [...] Gastroesophageal reflux disease without esophagitis Esophageal reflux Medicare annual wellness visit, subsequent- Primary Routine general medical examination at a health care facility Pure hypercholesterolemia Cervicalgia Essential hypertension Unspecified essential hypertension Chronic bronchitis, unspecified chronic bronchitis type (HCC) Encounter for medication monitoring Encounter for therapeutic drug monitoring Screening for depression Encounter for screening examination for other mental health and behavioral disorders Decubitus ulcer of sacral region, stage 1 Pressure ulcer, lower back Anemia, unspecified type S/P laparotomy with lysis of adhesions [facility] Diagnosis Essential hypertension- Primary Unspecified essential [...] Gastroesophageal reflux disease without esophagitis Esophageal reflux Anemia, unspecified type- Primary documented [facility] this encounter [facility]* Diagnosis Essential hypertension- Primary Unspecified [...] Gastroesophageal reflux disease without esophagitis Esophageal reflux S/P ileal conduit (HCC)- Primary Ileostomy status Cervicalgia Essential hypertension Unspecified essential hypertension Pure hypercholesterolemia Chronic bronchitis, unspecified chronic bronchitis type (HCC) Stage 3a chronic kidney disease (HCC) 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 Anemia, unspecified type Tobacco use disorder Abdominal aortic aneurysm (AAA) without rupture, unspecified part (HCC) Peripheral arterial disease (HCC) Peripheral vascular disease, unspecified Bilateral carotid artery stenosis Occlusion and stenosis of carotid artery without mention of cerebral infarction documented [facility] this encounter [facility]* Diagnosis Essential hypertension- Primary Unspecified [...] Gastroesophageal reflux disease without esophagitis Esophageal reflux 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 documented [facility] this encounter [facility]* Diagnosis Essential hypertension- Primary Unspecified essential hypertension Pure hypercholesterolemia Peripheral polyneuropathy Unspecified hereditary and idiopathic peripheral neuropathy Peripheral vascular disease, unspecified Chronic bronchitis, unspecified chronic bronchitis type (HCC) History of colon cancer Personal history of malignant neoplasm of large intestine Cervicalgia Encounter for screening for lung cancer Tobacco use disorder S/P ileal conduit (HCC) Ileostomy status Gastroesophageal reflux disease without esophagitis Esophageal reflux Anemia, unspecified type- Primary [facility]* Diagnosis Essential hypertension- Primary Unspecified essential hypertension Pure hypercholesterolemia Peripheral polyneuropathy Unspecified hereditary and idiopathic peripheral neuropathy Peripheral vascular disease, unspecified Chronic bronchitis, unspecified chronic bronchitis type (HCC) History of colon cancer Personal history of malignant neoplasm of large intestine Cervicalgia Encounter for screening for lung cancer Tobacco use disorder S/P ileal conduit (HCC) Ileostomy status Gastroesophageal reflux disease without esophagitis Esophageal reflux Cervicalgia- Primary Peripheral vascular disease, unspecified Iron deficiency anemia, unspecified iron deficiency anemia type documented [facility] this encounter [facility]* Diagnosis Essential hypertension- Primary Unspecified essential hypertension Pure hypercholesterolemia Peripheral polyneuropathy Unspecified hereditary and idiopathic peripheral neuropathy Peripheral vascular disease, unspecified Chronic bronchitis, unspecified chronic bronchitis type (HCC) History of colon cancer Personal history of malignant neoplasm of large intestine Cervicalgia Encounter for screening for lung cancer Tobacco use disorder S/P ileal conduit (HCC) Ileostomy status Gastroesophageal reflux disease without esophagitis Esophageal reflux Other insomnia- Primary Acute conjunctivitis of right eye, unspecified acute conjunctivitis type [facility] this encounter [facility]* Diagnosis Essential hypertension- Primary Unspecified essential hypertension Pure hypercholesterolemia Peripheral polyneuropathy Unspecified hereditary and idiopathic peripheral neuropathy Peripheral vascular disease, unspecified Chronic bronchitis, unspecified chronic bronchitis type (HCC) History of colon cancer Personal history of malignant neoplasm of large intestine Cervicalgia Encounter for screening for lung cancer Tobacco use disorder S/P ileal conduit (HCC) Ileostomy status Gastroesophageal reflux disease without esophagitis Esophageal reflux Other insomnia- Primary Acute conjunctivitis of right eye, unspecified acute conjunctivitis type Iron deficiency anemia, unspecified iron deficiency anemia type [facility] Diagnosis Essential hypertension- Primary Unspecified essential hypertension Pure hypercholesterolemia Peripheral polyneuropathy Unspecified hereditary and idiopathic peripheral neuropathy Peripheral vascular disease, unspecified Chronic bronchitis, unspecified chronic bronchitis type (HCC) History of colon cancer Personal history of malignant neoplasm of large intestine Cervicalgia Encounter for screening for lung cancer Tobacco use disorder S/P ileal conduit (HCC) Ileostomy status Gastroesophageal reflux disease without esophagitis Esophageal reflux Other insomnia documented in this encounter [facility] for referral (narrative)* Outpatient Procedure (Routine) - Pending Review Specialty Diagnoses / Procedures Referred By Sylvia michael Referred To Contact [facility] Diagnoses Screening for colon cancer Procedures COLONOSCOPY SCREENING COLONOSCOPY FLX DX W/COLLJ SPEC WHEN Arnie Gilliam MD [address] [place] [address] [facility] [address] [place] [address] Referral ID Status Reason Start Date Expiration Date Visits Requested Visits Authorized [id number] Pending Review Auto-Generat ed Referral 08/31/2022 08/31/2023 1 1 [facility] for referral (narrative)* Diagnostic Procedure Only (Routine) - Authorized Specialty Diagnoses / Procedures Referred By Contac t Referred To Contact US IMAGING Diagnoses Renal insufficiency Procedures US KIDNEY/BLADDER US RETROPERITONEAL REAL TIME W/IMAGE COMPLETE Rowena Sarabia, HYDRO STATION SUPERVISOR.MAINSTREAMING FACILITATOR [address] [place] [address] [place] [address] Referral ID Status Reason Start Date Expiration Date Visits Requested Visits Authorized [id number] Authorized Auto-Generat ed Referral 01/08/2024 02/06/2025 1 1 * Medication Prior Authorization - Closed Specialty Diagnoses / Procedures Referred By Contac t Referred To Contact Diagnoses Cervicalgia Rwoena Sarabia, HYDRO STATION SUPERVISOR.MAINSTREAMING FACILITATOR [address] [place] [address] Referral ID Status Reason Start Date Expiration Date Visits Re quested Visits Authorized [id number] Closed 1 1 [facility] for referral (narrative)* Diagnostic Procedure Only (Routine) - Closed Specialty Diagnoses / Procedures Referred By Contac t Referred To Contact US IMAGING Diagnoses Renal insufficiency Procedures US KIDNEY/BLADDER US RETROPERITONEAL REAL TIME W/IMAGE COMPLETE Rowena Sarabia, HYDRO STATION SUPERVISOR.MAINSTREAMING FACILITATOR [address] [place] [address] [place] [address] Referral ID Status Reason Start Date Expiration Date V isits Requested Visits Authorized [id number] Closed Auto-Generate d Referral 01/08/2024 02/06/2025 1 1 Electronically signed by Rowena Sarabia HYDRO STATION SUPERVISOR.MAINSTREAMING FACILITATOR at 01/10/2024 12:11 PM EDT [facility] Diagnostic Procedure Only (Routine) - Authorized Specialty Diagnoses / Procedures Referred By Contact Referred To Contact MOLECULAR & FUNCTIONAL IMAGING Diagnoses Hydronephrosis of right kidney Procedures NM RENAL FLOW/FXN W PHARM KIDNEY IMG MORPHOLOGY VASCULAR FLOW 1 W/RX Adrián Yarbrough MD [address] [place] [address] [facility] Functional [facility] [address] [place] [address] Referral ID Status Reason Start Date Expiration Date Visits Requested Visits Authorized [id number] Authorized Auto-Generat ed Referral 03/20/2024 04/19/2025 1 1 [facility] for referral (narrative)* Diagnostic Procedure Only (Routine) - Closed Specialty Diagnoses / Procedures Referred By Contact Referred To Contact MOLECULAR & FUNCTIONAL IMAGING Diagnoses Hydronephrosis of right kidney Procedures NM RENAL FLOW/FXN W PHARM KIDNEY IMG MORPHOLOGY VASCULAR FLOW 1 W/RX Adrián Yarbrough MD [address] [place] [address] [facility] [address] [place] [address] Referral ID Status Reason Start Date Expiration Date V isits Requested Visits Authorized [id number] Closed Auto-Generate d Referral 03/21/2024 10/22/2024 1 1 [facility] for referral (narrative)* Consultation (Routine) - Pending Review Specialty Diagnoses / Procedures Referred By Sylvia michael Referred To Contact Occupational Therapy Diagnoses Difficulty walking [employer] PA-C [address] [place] [address] Referral ID Status Reason Start Date Expiration Date Visits Requested Visits Authorized [id number] Pending Review Specialty Services Required 05/10/2024 05/10/2025 1 1 * Therapy (Routine) - Pending Review Specialty Diagnoses / Procedures Referred By Contac t Referred To Contact Diagnoses SBO (small bowel obstruction) (Multi) H/O total cystectomy Procedures OT eval and treat [employer] PA-C [address] [place] [address] Referral ID Status Reason Start Date Expiration Date V isits Requested Visits Authorized [id number] Pending Review 05/10/2024 05/10/2025 1 1 * Consultation (Routine) - Pending Review Specialty Diagnoses / Procedures Referred By Contac t Referred To Contact Physical Therapy Diagnoses SBO (small bowel obstruction) (Multi) [employer] PA-C [address] [place] [address] Referral ID Status Reason Start Date Expiration Date Visits Requested Visits Authorized [id number] Pending Review Specialty Services Required 05/09/2024 05/09/2025 1 1 * (Routine) - Authorized Specialty Diagnoses / Procedures Referred By Contac t Referred To Contact General Surgery Diagnoses SBO (small bowel obstruction) (Multi) Procedures Follow up in Trauma Surgery Tien Lynn APRN-SHANAE [address] [facility] [place] [address] Referral ID Status Reason Start Date Expiration Date V isits Requested Visits Authorized [id number] Authorized 05/08/2024 05/08/2025 1 1 [facility] Work Phone: Reason for referral (narrative)No reason for referral information [facility]WPro[facility] Phone: Reason for visit Narrative* Auth/Cert Specialty Diagnoses / Procedures Referred By Contac t Referred To Contact Diagnoses SBO (small bowel obstruction) (Multi) small bowel obstruction Procedures n/[place] [address] [place] [address] [facility] [address] [place] [address] Referral ID Status Reason Start Date Expiration Date Visits Re quested Visits Authorized [id number] 1 1 [facility] Work Phone: Advance Directives No Advanced Directives Records FoundDocuments on File Type Date Recorded Patient Coffee Sampler Expl anation Advance Directive(s) 08/24/2016 12:28 PM Advance Directive(s) 08/08/2016 11:00 AM Advance Directive(s) 08/04/2016 1:16 PM Advance Directive Response Recorded Date/ Time Advance Directives Yes June 21, 2021 6:47am Living Will Yes June 21 6:47am Power of Supervisor Packing Room Yes June 21, 6:47am Advance Directive Response Recorded Date/ Time Name of Medical Power of Supervisor Packing Room JULIANNE GUERRIER December 27, 2023 9:44am Advance Directives Yes June 21, 2021 6:47am Living Will Yes December 27, 2023 9:44am Power of Supervisor Packing Room Yes December 26 9:44am Date Activated Date Inactivated Comments 04/19/2024 3:00 AM Question Answer Comments Plan of Care: Code Status Discussion Completed Decision Maker: Provider Rationale: Patient condition does not warra nt a discussion Advance Directive Response Recorded Date/ Time Advance Directives Yes June 21, 2021 7:47am Chief Complaint and Reason for Visit Chief Complaint PVD, PAD, AAA Chief Complaint PVD, PAD, AAA DISCUSS CAROTID RESULTS COLONOSCOPE SCREENING Reason for Visit AAA (abdominal aorti c aneurysm) Carotid artery disease PAD (peripheral artery disease) Personal history of colon cancer Chief Complaint Admit Date L ICA STENOSIS June 25, 2025 9:37am Reason for Referral Specialty Diagnoses / Procedures Referred By Sylvia michael Referred To Contact Urology Diagnoses Hydronephrosis, unspecified hydronephrosis type Procedures CONSULT TO UROLOGY OFFICE/OUTPATIENT NEW HIGH MDM 60 MINUTES Rowena Sarabia, HYDRO STATION SUPERVISOR.MAINSTREAMING FACILITATOR [address] [place] [address] Referral ID Status Reason Start Date Expiration Date Visits Requested Visits Authorized [id number] Authorized PCP Requested Referral 01/10/2024 01/09/2025 1 1 Specialty Diagnoses / Procedures Referred By Contlionel t Referred To Contact CT IMAGING Diagnoses Hydronephrosis, unspecified hydronephrosis type Procedures CT ABD/PEL WO IVCON CT ABD & PELVIS W/O CONTRAST Neville Greco MD [address] [place] [id number] [place] [address] Referral ID Status Reason Start Date Expiration Date Visits Requested Visits Authorized [id number] Authorized Auto-Generat ed Referral 01/12/2024 02/10/2025 1 1 Summary Purpose Family History No Family History Records Found Relationship Condition Age at Onset Recorded Date/T les Not Specified Diabetes mellitus Unknown Cerebrovascular accident (CVA) Unknown Additional Source Comments Source Comments (unrecognize d section and content) In the event this informatio n is protected by the Federal Confidentiality of Alcohol and Drug Abuse Patient Records regulations: The Federal rules restrict any use of the information to criminally investigate or prosecute any alcohol or drug abuse patient.[facility] the event this information is protected by the Federal Confidentiality of Alcohol and Drug Abuse Patient Records regulations: The Federal rules restrict any use of the information to criminally investigate or prosecute any alcohol or drug abuse patient.[facility] CenterIn the event this information is protected by the Federal Confidentiality of Alcohol and Drug Abuse Patient Records regulations: The Federal rules restrict any use of the information to criminally investigate or prosecute any alcohol or drug abuse patient.[facility] CenterIn the event this information is protected by the Federal Confidentiality of Alcohol and Drug Abuse Patient Records regulations: The Federal rules restrict any use of the information to criminally investigate or prosecute any alcohol or drug abuse patient.[facility] CenterIn the event this information is protected by the Federal Confidentiality of Alcohol and Drug Abuse Patient Records regulations: The Federal rules restrict any use of the information to criminally investigate or prosecute any alcohol or drug abuse patient.[facility] CenterIn the event this information is protected by the Federal Confidentiality of Alcohol and Drug Abuse Patient Records regulations: The Federal rules restrict any use of the information to criminally investigate or prosecute any alcohol or drug abuse patient.[facility] CenterIn the event this information is protected by the Federal Confidentiality of Alcohol and Drug Abuse Patient Records regulations: The Federal rules restrict any use of the information to criminally investigate or prosecute any alcohol or drug abuse patient.[facility] CenterIn the event this information is protected by the Federal Confidentiality of Alcohol and Drug Abuse Patient Records regulations: The Federal rules restrict any use of the information to criminally investigate or prosecute any alcohol or drug abuse patient.[facility] CenterIn the event this information is protected by the Federal Confidentiality of Alcohol and Drug Abuse Patient Records regulations: The Federal rules restrict any use of the information to criminally investigate or prosecute any alcohol or drug abuse patient.[facility] CenterIn the event this information is protected by the Federal Confidentiality of Alcohol and Drug Abuse Patient Records regulations: The Federal rules restrict any use of the information to criminally investigate or prosecute any alcohol or drug abuse patient.[facility] CenterIn the event this information is protected by the Federal Confidentiality of Alcohol and Drug Abuse Patient Records regulations: The Federal rules restrict any use of the information to criminally investigate or prosecute any alcohol or drug abuse patient.[facility] CenterIn the event this information is protected by the Federal Confidentiality of Alcohol and Drug Abuse Patient Records regulations: The Federal rules restrict any use of the information to criminally investigate or prosecute any alcohol or drug abuse patient.[facility] CenterIn the event this information is protected by the Federal Confidentiality of Alcohol and Drug Abuse Patient Records regulations: The Federal rules restrict any use of the information to criminally investigate or prosecute any alcohol or drug abuse patient.[facility] CenterIn the event this information is protected by the Federal Confidentiality of Alcohol and Drug Abuse Patient Records regulations: The Federal rules restrict any use of the information to criminally investigate or prosecute any alcohol or drug abuse patient.[facility] CenterIn the event this information is protected by the Federal Confidentiality of Alcohol and Drug Abuse Patient Records regulations: The Federal rules restrict any use of the information to criminally investigate or prosecute any alcohol or drug abuse patient.[facility] CenterIn the event this information is protected by the Federal Confidentiality of Alcohol and Drug Abuse Patient Records regulations: The Federal rules restrict any use of the information to criminally investigate or prosecute any alcohol or drug abuse patient.[facility] CenterIn the event this information is protected by the Federal Confidentiality of Alcohol and Drug Abuse Patient Records regulations: The Federal rules restrict any use of the information to criminally investigate or prosecute any alcohol or drug abuse patient.[facility] CenterIn the event this information is protected by the Federal Confidentiality of Alcohol and Drug Abuse Patient Records regulations: The Federal rules restrict any use of the information to criminally investigate or prosecute any alcohol or drug abuse patient.[facility] CenterIn the event this information is protected by the Federal Confidentiality of Alcohol and Drug Abuse Patient Records regulations: The Federal rules restrict any use of the information to criminally investigate or prosecute any alcohol or drug abuse patient.[facility] CenterIn the event this information is protected by the Federal Confidentiality of Alcohol and Drug Abuse Patient Records regulations: The Federal rules restrict any use of the information to criminally investigate or prosecute any alcohol or drug abuse patient.[facility] CenterIn the event this information is protected by the Federal Confidentiality of Alcohol and Drug Abuse Patient Records regulations: The Federal rules restrict any use of the information to criminally investigate or prosecute any alcohol or drug abuse patient.[facility] CenterIn the event this information is protected by the Federal Confidentiality of Alcohol and Drug Abuse Patient Records regulations: The Federal rules restrict any use of the information to criminally investigate or prosecute any alcohol or drug abuse patient.[facility] CenterIn the event this information is protected by the Federal Confidentiality of Alcohol and Drug Abuse Patient Records regulations: The Federal rules restrict any use of the information to criminally investigate or prosecute any alcohol or drug abuse patient.[facility] CenterIn the event this information is protected by the Federal Confidentiality of Alcohol and Drug Abuse Patient Records regulations: The Federal rules restrict any use of the information to criminally investigate or prosecute any alcohol or drug abuse patient.[facility] CenterIn the event this information is protected by the Federal Confidentiality of Alcohol and Drug Abuse Patient Records regulations: The Federal rules restrict any use of the information to criminally investigate or prosecute any alcohol or drug abuse patient.[facility] CenterIn the event this information is protected by the Federal Confidentiality of Alcohol and Drug Abuse Patient Records regulations: The Federal rules restrict any use of the information to criminally investigate or prosecute any alcohol or drug abuse patient.[facility] CenterIn the event this information is protected by the Federal Confidentiality of Alcohol and Drug Abuse Patient Records regulations: The Federal rules restrict any use of the information to criminally investigate or prosecute any alcohol or drug abuse patient.[facility] CenterIn the event this information is protected by the Federal Confidentiality of Alcohol and Drug Abuse Patient Records regulations: The Federal rules restrict any use of the information to criminally investigate or prosecute any alcohol or drug abuse patient.[facility] CenterIn the event this information is protected by the Federal Confidentiality of Alcohol and Drug Abuse Patient Records regulations: The Federal rules restrict any use of the information to criminally investigate or prosecute any alcohol or drug abuse patient.[facility] CenterIn the event this information is protected by the Federal Confidentiality of Alcohol and Drug Abuse Patient Records regulations: The Federal rules restrict any use of the information to criminally investigate or prosecute any alcohol or drug abuse patient.[facility] CenterIn the event this information is protected by the Federal Confidentiality of Alcohol and Drug Abuse Patient Records regulations: The Federal rules restrict any use of the information to criminally investigate or prosecute any alcohol or drug abuse patient.[facility] CenterIn the event this information is protected by the Federal Confidentiality of Alcohol and Drug Abuse Patient Records regulations: The Federal rules restrict any use of the information to criminally investigate or prosecute any alcohol or drug abuse patient.[facility] CenterIn the event this information is protected by the Federal Confidentiality of Alcohol and Drug Abuse Patient Records regulations: The Federal rules restrict any use of the information to criminally investigate or prosecute any alcohol or drug abuse patient.[facility] CenterIn the event this information is protected by the Federal Confidentiality of Alcohol and Drug Abuse Patient Records regulations: The Federal rules restrict any use of the information to criminally investigate or prosecute any alcohol or drug abuse patient.[facility] CenterIn the event this information is protected by the Federal Confidentiality of Alcohol and Drug Abuse Patient Records regulations: The Federal rules restrict any use of the information to criminally investigate or prosecute any alcohol or drug abuse patient.[facility] CenterIn the event this information is protected by the Federal Confidentiality of Alcohol and Drug Abuse Patient Records regulations: The Federal rules restrict any use of the information to criminally investigate or prosecute any alcohol or drug abuse patient.[facility] CenterIn the event this information is protected by the Federal Confidentiality of Alcohol and Drug Abuse Patient Records regulations: The Federal rules restrict any use of the information to criminally investigate or prosecute any alcohol or drug abuse patient.[facility] CenterIn the event this information is protected by the Federal Confidentiality of Alcohol and Drug Abuse Patient Records regulations: The Federal rules restrict any use of the information to criminally investigate or prosecute any alcohol or drug abuse patient.[facility] CenterIn the event this information is protected by the Federal Confidentiality of Alcohol and Drug Abuse Patient Records regulations: The Federal rules restrict any use of the information to criminally investigate or prosecute any alcohol or drug abuse patient.[facility] CenterIn the event this information is protected by the Federal Confidentiality of Alcohol and Drug Abuse Patient Records regulations: The Federal rules restrict any use of the information to criminally investigate or prosecute any alcohol or drug abuse patient.[facility] CenterIn the event this information is protected by the Federal Confidentiality of Alcohol and Drug Abuse Patient Records regulations: The Federal rules restrict any use of the information to criminally investigate or prosecute any alcohol or drug abuse patient.[facility] CenterIn the event this information is protected by the Federal Confidentiality of Alcohol and Drug Abuse Patient Records regulations: The Federal rules restrict any use of the information to criminally investigate or prosecute any alcohol or drug abuse patient.[facility] CenterIn the event this information is protected by the Federal Confidentiality of Alcohol and Drug Abuse Patient Records regulations: The Federal rules restrict any use of the information to criminally investigate or prosecute any alcohol or drug abuse patient.[facility] CenterIn the event this information is protected by the Federal Confidentiality of Alcohol and Drug Abuse Patient Records regulations: The Federal rules restrict any use of the information to criminally investigate or prosecute any alcohol or drug abuse patient.[facility] CenterIn the event this information is protected by the Federal Confidentiality of Alcohol and Drug Abuse Patient Records regulations: The Federal rules restrict any use of the information to criminally investigate or prosecute any alcohol or drug abuse patient.[facility] CenterIn the event this information is protected by the Federal Confidentiality of Alcohol and Drug Abuse Patient Records regulations: The Federal rules restrict any use of the information to criminally investigate or prosecute any alcohol or drug abuse patient.[facility] CenterIn the event this information is protected by the Federal Confidentiality of Alcohol and Drug Abuse Patient Records regulations: The Federal rules restrict any use of the information to criminally investigate or prosecute any alcohol or drug abuse patient.[facility] CenterIn the event this information is protected by the Federal Confidentiality of Alcohol and Drug Abuse Patient Records regulations: The Federal rules restrict any use of the information to criminally investigate or prosecute any alcohol or drug abuse patient.[facility] CenterIn the event this information is protected by the Federal Confidentiality of Alcohol and Drug Abuse Patient Records regulations: The Federal rules restrict any use of the information to criminally investigate or prosecute any alcohol or drug abuse patient.[facility] CenterIn the event this information is protected by the Federal Confidentiality of Alcohol and Drug Abuse Patient Records regulations: The Federal rules restrict any use of the information to criminally investigate or prosecute any alcohol or drug abuse patient.[facility] Reason for Visit (unrecogniz ed section and content) Reason Comments Follow Up 3 months controlled medication Specialty Diagnoses / Procedures Referred By Contlionel t Referred To Contact Internal Medicine / INTERNAL MEDICINE Diagnoses 3 month follow up Procedures 4C EST Rowena Sarabia, HYDRO STATION SUPERVISOR.MAINSTREAMING FACILITATOR [address] [place] [address] Phone: tel: fax: Rowena Sarabia, HYDRO STATION SUPERVISOR.MAINSTREAMING FACILITATOR [address] [place] [address] Phone: tel: fax: Referral ID Status Reason Start Date Expiration Date Visits Re quested Visits Authorized [id number] Closed 01/15/2025 10/22/2025 2 2 Reason Comments F/U 3 Month Reason Onset Date Comments Population Health Navigation [...] Reason Onset Date Comments Refill Request 08/22/2023 Reason Comments F/U 3 Month Specialty Diagnoses / Procedures Referred By Contac t Referred To Contact INTERNAL MEDICINE Diagnoses 6 month follow up Procedures Rowena Elias, HYDRO STATION SUPERVISOR.MAINSTREAMING FACILITATOR [address] [place] [address] Intm [facility] [address] [place] [address] Referral ID Status Reason Start Date Expiration Date Visits Requested Visits Authorized [id number] Pending Review OON/Self Pay Override 07/12/2023 01/08/2024 1 1 Reason Comments Radiology US Specialty Diagnoses / Procedures Referred By Contac t Referred To Contact US IMAGING Diagnoses Renal insufficiency Procedures US KIDNEY/BLADDER US RETROPERITONEAL REAL TIME W/IMAGE COMPLETE Rowena Sarabia, HYDRO STATION SUPERVISOR.MAINSTREAMING FACILITATOR [address] [place] [address] [place] [address] Referral ID Status Reason Start Date Expiration Date V isits Requested Visits Authorized [id number] Closed Auto-Generate d Referral 01/08/2024 02/06/2025 1 1 Reason Comments Hydronephrosis Specialty Diagnoses / Procedures Referred By Contac t Referred To Contact Urology Diagnoses Hydronephrosis, unspecified hydronephrosis type Procedures CONSULT TO UROLOGY OFFICE/OUTPATIENT [facility] 60 MINUTES Rowena Sarabia, HYDRO STATION SUPERVISOR.MAINSTREAMING FACILITATOR [address] [place] [address] Referral ID Status Reason Start Date Expiration Date V isits Requested Visits Authorized [id number] Closed PCP Requested Referral 01/10/2024 01/09/2025 1 1 Reason Comments Release Of Medical Records Specialty Diagnoses / Procedures Referred By Contac t Referred To Contact CT IMAGING Diagnoses Hydronephrosis, unspecified hydronephrosis type Procedures CT ABD/PEL WO IVCON CT ABD & PELVIS W/O CONTRAST Neville Greco MD [address] [place] [address] [facility] [place] [address] Referral ID Status Reason Start Date Expiration Date V isits Requested Visits Authorized [id number] Closed Auto-Generate d Referral 01/12/2024 02/10/2025 1 [address] Specialty Diagnoses / Procedures Referred By Contac t Referred To Contact CT IMAGING Diagnoses Hydronephrosis, unspecified hydronephrosis type Procedures CT ABD/PEL WO IVCON CT ABD & PELVIS W/O CONTRAST Neville Greco MD [address] [place] [address] Ct Imaging [place] [address] Reason Comments Medication Problem RX for Tylenol #4 Reason Comments Results Reason Onset Date Comments Refill Request 03/07/2024 Reason Comments Hydronephrosis, unspecified hydronephros is type Reason Comments Radiology NM Specialty Diagnoses / Procedures Referred By Contact Referred To Contact MOLECULAR & FUNCTIONAL IMAGING Diagnoses Hydronephrosis of right kidney Procedures NM RENAL FLOW/FXN W PHARM KIDNEY IMG MORPHOLOGY VASCULAR FLOW 1 W/RX Adrián Yarbrough MD [address] [place] [address] Molecular & Functional Imaging [address] [place] [address] Referral ID Status Reason Start Date Expiration Date V isits Requested Visits Authorized [id number] Closed Auto-Generate d Referral 03/21/2024 10/22/2024 1 1 Reason Onset Date Comments Refill Request 05/15/2024 Reason Comments Hospital F/U [facility] - bowel obstruction surgery follow up Reason Onset Date Comments Refill Request 06/22/2024 Reason Onset Date Comments Refill Request 07/25/2024 Reason Onset Date Comments Refill Request 09/28/2024 Reason Comments Results Blood work Reason Comments [facility] [facility] [employer] Reason Comments Follow Up Referral ID Status Reason Start Date Expiration Date Visits Re quested Visits Authorized [id number] Closed 01/15/2025 01/15/2025 1 1 Reason Comments Pharmacy Call Reason Comments Sleep Problem Reason Comments Sleep Problem Unable to get comfor table and fall asleep x1 week, hasn't slept more than an hour each night Reason Comments Follow Up seen in urgent care on Monday for insomnia x 1 week- restless Specialty Diagnoses / Procedures Referred By Sylvia michael Referred To Contact Internal Medicine / INTERNAL MEDICINE Diagnoses Insomnia EC Follow Up--Insomnia Procedures PC EST [facility] [address] [place] [address] Phone: tel: Rowena Sarabia, HYDRO STATION SUPERVISOR.MAINSTREAMING FACILITATOR [address] [place] [address] Phone: tel: fax: Referral ID Status Reason Start Date Expiration Date Visits Re quested Visits Authorized [id number] Closed 04/28/2025 10/22/2025 1 1 Reason Onset Date Comments Refill Request 07/01/2025 Care Teams (unrecognized sec tion and content) Inspector Raw Quartz Relationship Specialty Start Date End Date Arnie Chiang MD [address] [place] [address] PCP - General 11/26/09 Inspector Raw Quartz Relationship Specialty Start Date End Date Arnie Chiang MD [address] [place] [address] PCP - General 11/26/09 Inspector Raw Quartz Relationship Specialty Start Date End Date Arnie Chiang MD [address] [place] [address] PCP - General 11/26/09 Inspector Raw Quartz Relationship Specialty Start Date End Date Arnie Chiang MD [address] [place] [address] PCP - General 11/26/09 Inspector Raw Quartz Relationship Specialty Start Date End Date Arnie Chiang MD [address] [place] [address] PCP - General 11/26/09 Inspector Raw Quartz Relationship Specialty Start Date End Date Arnie Chiang MD [address] [place] [address] PCP - General 11/26/09 Inspector Raw Quartz Relationship Specialty Start Date End Date Arnie Chiang MD [address] [place] [address] PCP - General 11/26/09 Inspector Raw Quartz Relationship Specialty Start Date End Date Arnie Chiang MD [address] [place] [address] PCP - General 11/26/09 Inspector Raw Quartz Relationship Specialty Start Date End Date Arnie Chiang MD [address] [place] [address] PCP - General 11/26/09 Inspector Raw Quartz Relationship Specialty Start Date End Date Arnie Chiang MD [address] [place] [address] PCP - General 11/26/09 Inspector Raw Quartz Relationship Specialty Start Date End Date Arnie Chiang MD [address] [place] [address] PCP - General 11/26/09 Inspector Raw Quartz Relationship Specialty Start Date End Date Arnie Chiang MD [address] [place] [address] PCP - General 11/26/09 Inspector Raw Quartz Relationship Specialty Start Date End Date Arnie Chiang MD [address] [place] [address] PCP - General 11/26/09 Team Status: Active Member Role Status Dates Dr. Arnie Chiang MD Family Provider Active Dr. Arnie Chiang MD Primary Care Provider Active Team Status: Active Member Role Status Dates Dr. Arnie Chiang MD Primary Care Provider Active Dr. Ochoa Tyson MD Attending Provider, Referring Provider Active Team Status: Inactive Member Role Status Dates Dr. Arnie Chiang MD Primary Care Provider Active Dr. Ochoa Tyson MD Attending Provider, Referring Provider Active Team Status: Inactive Member Role Status Dates Dr. Arnie Chiang MD Primary Care Provider, Refer ring Provider Active Dr. Ochoa Tyson MD Attending Provider Active Team Status: Active Member Role Status Dates Dr. Arnie Chiang MD Primary Care Provider, Refer ring Provider Active Dr. Ochoa Tyson MD Attending Provider, Other Prov ider Active Inspector Raw Quartz Relationship Specialty Start Date End Date Arnie Chiang MD [address] [place] [address] PCP - General 11/26/09 Inspector Raw Quartz Relationship Specialty Start Date End Date Arnie Chiang MD [address] [place] [address] PCP - General 11/26/09 Inspector Raw Quartz Relationship Specialty Start Date End Date Arnie Chiang MD [address] [place] [address] PCP - General 11/26/09 Inspector Raw Quartz Relationship Specialty Start Date End Date Arnie Chiang MD [address] [place] [address] PCP - General 11/26/09 Inspector Raw Quartz Relationship Specialty Start Date End Date Arnie Chiang MD [address] [place] [address] PCP - General 11/26/09 Inspector Raw Quartz Relationship Specialty Start Date End Date Arnie Chiang MD [address] [place] [address] PCP - General 11/26/09 Inspector Raw Quartz Relationship Specialty Start Date End Date Arnie Chiang MD [address] [place] [address] PCP - General 11/26/09 Inspector Raw Quartz Relationship Specialty Start Date End Date Arnie Chiang MD [address] [place] [address] PCP - General 11/26/09 Inspector Raw Quartz Relationship Specialty Start Date End Date Arnie Chiang MD [address] [place] [address] PCP - General 11/26/09 Inspector Raw Quartz Relationship Specialty Start Date End Date Arnie Chiang MD [address] [place] [address] PCP - General 11/26/09 Inspector Raw Quartz Relationship Specialty Start Date End Date Arnie Chiang MD [address] [place] [address] PCP - General 11/26/09 Inspector Raw Quartz Relationship Specialty Start Date End Date Arnie Chiang MD [address] [place] [address] PCP - General 11/26/09 Inspector Raw Quartz Relationship Specialty Start Date End Date Arnie Chiang MD [address] [place] [address] PCP - General 11/26/09 Inspector Raw Quartz Relationship Specialty Start Date End Date Arnie Chiang MD [address] [place] [address] PCP - General 11/26/09 Inspector Raw Quartz Relationship Specialty Start Date End Date Arnie Chiang MD [address] [place] [address] PCP - General 11/26/09 Inspector Raw Quartz Relationship Specialty Start Date End Date Arnie Chiang MD [address] [place] [address] PCP - General 11/26/09 Inspector Raw Quartz Relationship Specialty Start Date End Date Arnie Chiang MD [address] [place] [address] PCP - General 11/26/09 Inspector Raw Quartz Relationship Specialty Start Date End Date Arnie Chiang MD [address] [place] [address] PCP - General 11/26/09 Inspector Raw Quartz Relationship Specialty Start Date End Date Arnie Chiang MD [address] [place] [address] PCP - General 11/26/09 Inspector Raw Quartz Relationship Specialty Start Date End Date Arnie Chiang MD [address] [place] [address] PCP - General 11/26/09 Rowena Sarabia, HYDRO STATION SUPERVISOR.MAINSTREAMING FACILITATOR [address] [place] [address] Library Technical Assistant Internal Medicine 09/30/24 Inspector Raw Quartz Relationship Specialty Start Date End Date Arnie Chiang MD [address] [place] [address] PCP - General 11/26/09 Rowena Sarabia, HYDRO STATION SUPERVISOR.MAINSTREAMING FACILITATOR [address] [place] [address] Library Technical Assistant Internal Medicine 09/30/24 Inspector Raw Quartz Relationship Specialty Start Date End Date Arnie Chiang MD [address] [place] [address] PCP - General 11/26/09 Rowena Sarabia, HYDRO STATION SUPERVISOR.MAINSTREAMING FACILITATOR [address] [place] [address] Library Technical Assistant Internal Medicine 09/30/24 Inspector Raw Quartz Relationship Specialty Start Date End Date Arnie Chiang MD [address] [place] [address] PCP - General 11/26/09 Rowena Sarabia, HYDRO STATION SUPERVISOR.MAINSTREAMING FACILITATOR [address] [place] [address] Library Technical Assistant Internal Medicine 09/30/24 Inspector Raw Quartz Relationship Specialty Start Date End Date Arnie Chiang MD [address] [place] [address] PCP - General 11/26/09 Rowena Sarabia, HYDRO STATION SUPERVISOR.MAINSTREAMING FACILITATOR [address] [place] [address] Library Technical Assistant Internal Medicine 09/30/24 Inspector Raw Quartz Relationship Specialty Start Date End Date Arnie Chiang MD [address] [place] [address] PCP - General 11/26/09 Rowena Sarabia, HYDRO STATION SUPERVISOR.MAINSTREAMING FACILITATOR [address] [place] [address] Library Technical Assistant Internal Medicine 09/30/24 Inspector Raw Quartz Relationship Specialty Start Date End Date Arnie Chiang MD [address] [place] [address] PCP - General 11/26/09 Rowena Sarabia, HYDRO STATION SUPERVISOR.MAINSTREAMING FACILITATOR [address] [place] [address] Library Technical Assistant Internal Medicine 09/30/24 Inspector Raw Quartz Relationship Specialty Start Date End Date Arnie Chiang MD [address] [place] [address] PCP - General 11/26/09 Rowena Sarabia, HYDRO STATION SUPERVISOR.MAINSTREAMING FACILITATOR [address] [place] [address] Library Technical Assistant Internal Medicine 09/30/24 Inspector Raw Quartz Relationship Specialty Start Date End Date Arnie Chiang MD [address] [place] [address] PCP - General 11/26/09 Rowena Sarabia, HYDRO STATION SUPERVISOR.MAINSTREAMING FACILITATOR [address] [place] [address] [facility] Internal Medicine 09/30/24 Inspector Raw Quartz Relationship Specialty Start Date End Date Arnie Chiang MD [address] [facility], [place] [address] PCP - General 11/26/09 Rowena Sarabia, HYDRO STATION SUPERVISOR.MAINSTREAMING FACILITATOR [address] [facility], [place] [address] Library Technical Assistant Internal Medicine 09/30/24 Inspector Raw Quartz Relationship Specialty Start Date End Date Arnie Chiang MD [address] [facility], [place] [address] PCP - General 11/26/09 Rowena Sarabia, HYDRO STATION SUPERVISOR.MAINSTREAMING FACILITATOR [address] [facility], [place] [address] Library Technical Assistant Internal Medicine 09/30/24 Team Status: Active Member Role/Relationship Status Dates Dr. Arnie Chiang MD Primary Care Provider Active Team Status: Inactive Member Role/Relationship Status Dates Dr. Arnie Chiang MD Primary Care Provider Active Start: June 25, 2025 End: June 25, 2025 MICHAEL Burkett Attending Provider Active Star t: June 25, 2025 End: June 25, 2025 MICHAEL Burkett Referring Provider Active Star t: June 25, 2025 End: June 25, 2025 Team Status: Active Member Role/Relationship Status Dates Dr. Arnie Chiang MD Primary Care Provider Active Start: June 25, 2025 Dr. Geo Clinton MD Attending Provider Active S tart: June 25, 2025 Inspector Raw Quartz Relationship Specialty Start Date End Date Arnie Chiang MD [address] [facility], [place] [address] PCP - General 11/26/09 Rowena Sarabia, HYDRO STATION SUPERVISOR.MAINSTREAMING FACILITATOR [address] [facility], [place] [address] Library Technical Assistant Internal Medicine 09/30/24 Goals (unrecognized section and content) Goals may be documented in a n alternate sectionGoals may be documented in an alternate section (unrecognized sect ion and content) No Status Records FoundNo Status Records FoundNo Status Records FoundNo Status Records FoundNo Status Records Found INFORMATION SOURCE (unrecogn ized section and content) DATE CREATED AUTHOR 03/21/2024 [facility] DATE CREATED AUTHOR AUTHOR'S ORGANIZ ATION 04/29/2024 [facility] DATE CREATED AUTHOR AUTHOR'S ORGANIZ ATION 05/14/2024 [facility] DATE CREATED AUTHOR AUTHOR'S ORGANIZ ATION 04/30/2025 [facility] DATE CREATED AUTHOR AUTHOR'S ORGANIZ ATION 07/03/2025 [facility] Scheduled Active and Recently Administ ered Medications (unrecognized section and content) Medication Order 05/08/2024 05/09/2024 05/10/2024 acetaminophen (Tylenol) tablet 650 mg 650 mg, oral, Every 6 hours, First dose on Mon05/07/24 at 1245, If ordered PRN for pain, nurse is permitted to administer this medication for higher pain scores based on patient preference? Yes 0328 (Given - Provider: Jaycee Azevedo RN)0807 (Given - Provider: Adair Sena RN)1439 (Given - Provider: Adair Sena RN)2019 (Given - Provider: Mejia Morillo RN) 0119 (Given - Provider: Mejia Morillo RN)0909 (Given - Provider: Mirian Cowan RN)1449 (Given - Provider: Mirian Cowan RN)1941 (Given - Provider: Mejia Morillo RN) 0229 (Given - Provider: Mejia Morillo RN)0851 (Given - Provider: Mirian Cowan RN)1407 (Given - Provider: Mirian Cowan RN)1999 (Due - Provider: Morena Mena, PharmD) amLODIPine (Norvasc) tablet 10 mg 10 mg, oral, Daily, First dose on Mon04/23/24 at 0900 0807 (Given - Provider: Adair Sena RN) 0909 (Given - Provider: Mirian Cowan RN) 0851 (Given - Provider: Mirian Cowan RN) ampicillin-sulbactam (Unasyn) in sodium chloride 0.9 % 100 mL 3 g () 3 g, intravenous, at 200 mL/hr, Administer over 30 Minutes, Every 12 hours, First dose on Mon04/29/24 at 1000, For 22 doses, Mini-Bag Plus/ADD-[place] bag, Suspected Indication (Select all that apply): Urinary Tract Infection, Type of Therapy: Definitive, Based on Culture, Type of Urinary Tract Infection: Complicated, Indications: Urinary Tract Infection 1046 (New Bag - Provider: Adair Sena RN)1116 (Stopped - Provider: Adair Sena RN)2205 (New Bag - Provider: Mejia Morillo RN)2235 (Stopped - Provider: Mejia Morillo RN) 0909 (New Bag - Provider: Mirian Cowan RN)0939 (Stopped - Provider: Mirian Cowan RN)2228 (New Bag - Provider: Ang Toro, EMT)2258 (Stopped - Provider: Ang Toro, EMT) atorvastatin (Lipitor) tablet 20 mg 20 mg, oral, Nightly, First dose on Mon05/08/24 at 2100 2019 (Given - Provider: Mejia Morillo RN) 2015 (Given - Provider: Mejia Morillo RN) 2100 (Due) bisacodyl (Dulcolax) suppository 10 mg 10 mg, rectal, Daily, First dose on Mon04/20/24 at 0900 0900 (Not Given - Provider: Adair Sena RN - Reason: Patient/family refused) 0900 (Not Given - Provider: Mirian Cowan RN - Reason: Patient/family refused) 0900 (Not Given - Provider: Mirian Cowan RN - Reason: Patient/family refused) clopidogrel (Plavix) tablet 75 mg 75 mg, oral, Daily, First dose on Mon05/08/24 at 0945 0958 (Given - Provider: Adair Sena RN) 0909 (Given - Provider: Mirian Cowan RN) 0851 (Given - Provider: Mirian Cowan RN) diazePAM (Valium) tablet 2 mg 2 mg, oral, Every 6 hours scheduled, First dose (after last modification) on Mon05/08/24 at 0815 0814 (Given - Provider: Adair Sena RN)1439 (Given - Provider: Adair Sena RN)2019 (Given - Provider: Mejia Mroillo RN) 0119 (Given - Provider: Mejia Morillo RN)0909 (Given - Provider: Mirian Cowan RN)1449 (Given - Provider: Mirian Cowan RN)1942 (Given - Provider: Mejia Morillo RN) 0229 (Given - Provider: Mejia Morillo RN)0851 (Given - Provider: Mirian Cowan RN)1407 (Given - Provider: Mirian Cowan RN)1999 (Due - Provider: Tessa Shelley) heparin (porcine) injection 5,000 Units 5,000 Units, subcutaneous, Every 8 hours, First dose on Mon04/19/24 at 0330 0621 (Given - Provider: Jaycee Azevedo RN)1439 (Given - Provider: Adair Sena RN)2102 (Given - Provider: Mejia Morillo RN) 0602 (Given - Provider: Mejia Morillo RN)1449 (Given - Provider: Mirian Cowan RN)2109 (Given - Provider: Ang Toro, [facility]) 0615 (Given - Provider: Mejia Morillo RN)1407 (Given - Provider: Mirian Cowan RN)2200 (Due) ibuprofen tablet 400 mg () 400 mg, oral, Every 6 hours scheduled, First dose on Mon05/07/24 at 1245, For 24 hours, May administer with food to reduce GI upset. 0621 (Given - Provider: Jaycee Azevedo RN) ibuprofen tablet 400 mg (CANCELED) 400 mg, oral, Every 6 hours scheduled, First dose (after last reorder) on Mon05/08/24 at 0815, For 24 days, May administer with food to reduce GI upset. 0815 (Not Given - Provider: Adair Sena RN - Reason: Order parameters not met)1215 (Given - Provider: Adair Sena RN)1715 (Given - Provider: Adair Sena RN)2356 (Given - Provider: Mejia Morillo RN) 0602 (Given - Provider: Mejia Morillo RN) lidocaine 4 % patch 1 patch 1 patch, transdermal, Administer over 12 Hours, Daily, First dose on Mon04/30/24 at 1600, Apply to abdomen. Patch will remain on for 12 hours, then removed for [address] patch directly over any surgical incisions or wounds. 08 (Medication Applied - Provider: Adair Sena RN - Comment: abdomen)2007 (Medication Removed - Provider: Mejia Morillo RN) 908 (Medication Applied - Provider: Mirian Cowan RN)2108 (Medication Removed - Provider: Ang Toro, EMT) 09 (Not Given - Provider: Mirian Cowan RN - Reason: Patient/family refused) lisinopril tablet 20 mg 20 mg, oral, Daily, First dose on Mon04/23/24 at 0900, On hold since Mon04/23/2024 at 0922 until manually unheld 899 (Not Given - Provider: Adair Sena RN - Reason: Order parameters not met - Comment: med held) 09 (Dose Auto Held) 09 (Dose Auto Held) polyethylene glycol (Glycolax, Miralax) packet 17 g 17 g, oral, Daily, First dose on Mon05/07/24 at 0900 0807 (Given - Provider: Adair Sena RN) 09 (Given - Provider: Mirian Cowan RN) 09 (Not Given - Provider: Mirian Cowan RN - Reason: Patient/family refused) Continuous Medication Order 05/08/2024 05/09/2024 05/10/2024 Adult Clinimix Parenteral Nutrition (CANCELED) 40 mL/hr, intravenous, Administer over 24 Hours, Daily PN, Starting on Mon04/23/24 at 2000, Maximum rate: 200 mL/hour Use a 0.22 micron filter., Indication: Bowel obstruction 1020 (Stopped - Provider: Adair Sena RN)1706 (New Bag - Provider: Adair Sena RN) 0905 (Stopped - Provider: Mirian Cowan RN)1505 (Not Given - Provider: Mirian Cowan RN - Reason: Medication not available) Adult Clinimix Parenteral Nutrition (CANCELED) 40 mL/hr, intravenous, Administer over 24 Hours, Daily PN, Starting on Marifer 05/09/24 at 2000, Maximum rate: 200 mL/hour Use a 0.22 micron filter., Indication: Bowel obstruction 1539 (New Bag - Provider: Mirian Cowan RN - Comment: [employer] PA-C said okay to start now)1931 (New Bag - Provider: Mejia Morillo RN)1958 (Stopped - Provider: Mejia Morillo RN) 1931 (Due: Stopped - Provider: Mejia Moirllo RN) PRN Medication Order 05/08/2024 05/09/2024 05/10/2024 alteplase (Cathflo Activase) injection 2 mg 2 mg, intra-catheter, As needed, line care, Starting on Mon04/19/24 at 1004, Via PICC Line Removed by: Aspiration Inject into partial/totally occluded catheter lumen for total of 30 to 120 minute dwell time; assess patency at 30 minutes and if not patent, dwell for additional 90 minutes. If still not patent, repeat alteplase 2 mg injected into thrombotic partial or totally occluded lumen for a total of 120 minute dwell time; assess patency at 30 minutes and if not patent, dwell for 90 minutes. If still not patent, notify provider. Dilute each 2 mg vial with 2.2 mL sterile water to give 1 mg/mL final concentration. Swirl gently to mix; do not shake. benzocaine-menthol (Cepastat Sore Throat) lozenge 1 lozenge 1 lozenge, Mouth/Throat, Every 4 hours PRN, sore throat, Starting on Mon04/21/24 at 2115 HYDROmorphone (Dilaudid) injection 0.2 mg 0.2 mg, intravenous, Every 3 hours PRN, pain breakthrough, Starting on Mon05/07/24 at 1612 0119 (Given - Provider: Mejia Morillo RN)1940 (Given - Provider: Mejia Morillo RN) 0615 (Given - Provider: Mejia Morillo RN) ondansetron (Zofran) injection 4 mg 4 mg, intravenous, Every 8 hours PRN, nausea/vomiting, first line, Starting on Mon04/19/24 at 0258, 1st Line. Give IV if patient is unable to take orally. If inadequate response within 60 minutes, proceed to next-line agent for same PRN reason or contact provider if no further options ordered. When administering via IV Push, administer over 3-5 minutes. 0333 (Given - Provider: Jaycee Azevedo RN)0959 (Given - Provider: Adair Sena RN)2030 (Given - Provider: Mejia Morillo RN) 0434 (Given - Provider: Mejia Morillo RN)1449 (Given - Provider: Mirian Cowan RN)2228 (Given - Provider: Ang Toro, [facility]) 0615 (Given - Provider: Mejia Morillo RN)1414 (Given - Provider: Mirian Cowan, LYNDSEY) oxyCODONE (Roxicodone) immediate release tablet 10 mg 10 mg, oral, Every 4 hours PRN, pain severe (7-10), first line, Starting on Mon05/07/24 at 1225, If ordered PRN for pain, nurse is permitted to administer this medication for higher pain scores based on patient preference? Yes 0328 (Given - Provider: Jaycee Azevedo RN)0958 (Given - Provider: Adair Sena RN)2225 (Given - Provider: Mejia Morillo RN) 0309 (Given - Provider: Mejia Morillo RN)1820 (Given - Provider: Mirian Cowan RN) 0233 (Given - Provider: Mejia Morillo RN)0856 (Given - Provider: Mirian Cowan, LYNDSEY) oxyCODONE (Roxicodone) immediate release tablet 5 mg 5 mg, oral, Every 4 hours PRN, pain moderate (4-6), first line, Starting on Mon05/07/24 at 1225, If ordered PRN for pain, nurse is permitted to administer this medication for higher pain scores based on patient preference? Yes 1244 (Given - Provider: Mirian Cowan RN) 1407 (Given - Provider: Mirian Cowan RN) FOR RECORDS PERTAINING TO PATIENTS WHO ARE [...] BE BASED ON THE PRIMARY CLINICAL [email or web address] provides no warranty or guarantee of the accuracy or completeness of information in this [email or web address]
[2025-07-11 08:07] LABS: CREATININE FINGERSTICK 1.1 mg/dL (0.70-1.30); EGFR FINGERSTICK > 60.0000 mL/min (>60)
== END | disposition home or self-care (01) ==
LOC: CT 07:38
PROVIDERS: PCP Internal Medicine; Referring Provider Physician Assistant; Visit Provider Physician Assistant
DX: I65.23 Occlusion and stenosis of bilateral carotid arteries (principal)
CPT/HCPCS: 70496; 70498; Q9967